=== PATIENT | female | born 1945 | race Caucasian/White ===

== ENCOUNTER 2022-02-18 10:44 | Outpatient (CLI) | payer MEDICARE, BC, SELFPAY ==
--- OUTSIDE RECORDS SUMMARY | 2022-02-18 10:49 | XMS_ITS | Clinical Summary ---
:1945 Author Organization [facility] Address [address] [place] [address] Care Team Providers Name Role Phone Elsewhere, Pcp Primary Care Provider Unavailable Source Comments Patient records contain information from all sites at [facility]. For routine questions regarding patient records, call [phone] during business hours, M-F 8:00 AM - 5:00 PM Central Time. Record requests for emergency care only can be directed to [phone] at any time.[facility] Allergies No known active allergies Medications Medication Sig Dispensed Refills Start Date End Date Status aspirin [address] every 0 02/16/2008 Ac tive tablet morning. cholecalciferol One time per 0 05/13/2014 Active (VITAMIN D3) 25 mcg week (1,000 Unit) capsule diazePAM (DIASTAT) Insert 5 mg 0 12/05/2020 Active 2.5 mg rectal kit into the rectum as needed. folic acid 1 mg Take 1 tablet 0 03/13/2018 Active tablet by mouth daily. levETIRAcetam 500 mg in the 0 06/16/2016 A ctive (KEPPRA) 250 mg morning, 250 tablet mg with lunch, 500 mg in evening carBAMazepine Take 400 mg 0 Acti ve (CARBATROL) 200 mg by mouth 2 12 hr capsule (two) times a day. carBAMazepine 1 capsule 0 08/20/2021 Activ e (CARBATROL) 100 mg (100 mg 12 hr capsule total) 2 (two) times a day. atorvastatin every other 0 08/20/2021 Acti ve (LIPITOR) 10 mg day. tablet multivitamin/iron/fo Take by 0 Active lic acid (CENTRUM mouth. ORAL) melatonin 3 mg Take 1 tablet 0 09/04/2021 Active tablet (3 mg total) by mouth at bedtime as needed for sleep. acetaminophen Take 2 0 09/25/2021 Activ e (TYLENOL) 500 mg tablets tablet (1,000 mg total) by mouth every 6 (six) hours as needed for mild pain or score 1-3 of 10, moderate pain or score 4-6 of 10 or headaches. psyllium, with Take 1 packet 0 09/26/2021 Active aspartame, by mouth (METAMUCIL) 3.4 gram daily. packet methocarbamoL Take 1 tablet 0 09/04/2021 09/26/19 D iscontinued (ROBAXIN) 750 mg (750 mg 22 (St op Taking at tablet total) by Discharge) mouth every 6 (six) hours as needed for muscle spasms. 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 Secondary to CHI Immunizations Name Administration Dates Next Due influenza high dose (65 years or older) (PF) 06/02/2016 Social History Tobacco Use Types Packs/Day Years Used Date Smoking Tobacco: Never Smokeless Tobacco: Never Alcohol Use Standard Drinks/Week Comments Never 0 (1 standard drink = 0.6 oz pure alcoho l) Alcohol Habits Answer Date Recorded How often do you have a drink containing alcohol? Never 08/26/2021 How many drinks containing alcohol do you have on a typical Not asked day when you are drinking? How often do you have six or more drinks on one occasion? No t asked Comment: Not asked Social Isolation Answer Date Recorded In a typical week, how many times do you More than three jeri es a week 08/26/2021 talk on the phone with family, friends, or neighbors? How often do you get together with friends Twice a week 08/26/2021 or relatives? How often do you attend christian or Never 2021 anabaptism services? Do you belong to any clubs or No 08/26/2021 organizations such as christian groups, unions, fraternal or athletic groups, or school groups? How often do you attend meetings of the Never 08/26/2021 clubs or organizations you belong to? Are you now , , , 08/26/2021 , never or living with a partner? Physical Activity Answer Date Recorded On average, how many days per week do you engage in moderate to 0 days 08/26/2021 strenuous exercise (like walking fast, running, jogging, dancing, swimming, biking, or other activities that cause a light or heavy sweat)? On average, how many minutes do you engage in exercise at th is 10 min 08/26/2021 level? Stress Answer Date Recorded Do you feel stress - tense, restless, nervous, or anxious, N ot at all 08/26/2021 or unable to sleep at night because your mind is troubled all the time - these days? Financial Resource Strain Answer Date Recorded How hard is it for you to pay for the very basics like Not h rozina at all 08/26/2021 food, housing, medical care, and heating? Intimate Partner Violence Answer Date Recorded Within the last year, have you been afraid of your partner o r No 08/26/2021 ex-partner? Within the last year, have you been humiliated or emotionall y No 08/26/2021 abused in other ways by your partner or ex-partner? Within the last year, have you been kicked, hit, slapped, or No 08/26/2021 otherwise physically hurt by your partner or ex-partner? Within the last year, have you been raped or forced to have any No 08/26/2021 kind of sexual activity by your partner or ex-partner? Food Insecurity Answer Date Recorded Within the past 12 months, you worried that your food would Never true 08/26/2021 run out before you got money to buy more. Within the past 12 months, the food you bought just didn't N ever true 08/26/2021 last and you didn't have money to get more. Transportation Needs Answer Date Recorded In the past 12 months, has lack of transportation kept you f rom No 08/26/2021 medical appointments or from getting medications? In the past 12 months, has lack of transportation kept you f rom No 08/26/2021 meetings, work, or getting things needed for daily living? Housing Stability Answer Date Recorded In the last 12 months, was there a time when you were not ab le No 08/26/2021 to pay the mortgage or rent on time? In the last 12 months, how many places have you lived? 1 08/26/2021 In the last 12 months, was there a time when you did not hav e a No 08/26/[address] to sleep or slept in a fci (including now)? Education Answer Date Recorded What is the highest level of Professional school degree (e.g ., , 08/25/2021 school you have completed or the DDS, DVM, ROSALVA) highest degree you have received? Sex Assigned at Date Recorded Female 08/25/2021 9:30 PM CDT Last Filed Vital Signs Vital Sign Reading Time Taken Comments Blood Pressure 135/86 09/25/2021 11:30 AM CDT Pulse 80 09/25/2021 11:30 AM CDT Temperature 36.7 ??C (98.1 ??F) 09/25/2021 11:30 AM CDT Respiratory Rate 16 09/25/2021 11:30 AM CDT Oxygen Saturation 95% 09/25/2021 11:30 AM CDT Inhaled Oxygen Concentration - - Weight 66.7 kg (147 lb 0.8 oz) 09/24/2021 12:00 PM CDT Height 172.2 cm (5' 7.8) 09/04/2021 7:02 PM CDT Body Mass Index 22.49 09/04/2021 7:02 PM CDT Plan of Treatment Health Maintenance Due Date Last Done Comments Bone Density Scan (Osteoporosis 1945 Screen) CT Colonography 1945 Cologuard 1945 Colonoscopy 1945 Colorectal Cancer Screening 1945 FIT 1945 Hepatitis C Screening 1945 Mammogram 1945 Pneumococcal vaccine (65+ years) 07/04/2016 07/04/2015 (2 - PPSV23 or PCV20) Depression Screening (Annual 06/13/2021 PHQ-2) Influenza Vaccine (#1) 2022 03/14/2021, 03/13/2020, 03/30/2019, Additional history exists Fasting Glucose for Diabetes 09/05/2024 09/05/2021, 022, Screening 03/13/2018, Additional history exists DTaP,Tdap,and Td Vaccines (2 - Td 11/30/2027 11/29/2017 or Tdap) Zoster Vaccines Completed 04/19/2018, 01/16/2018 Fall Risk Screen (Annual) Completed 09/02/2021 COVID-19 Vaccine Completed 10/06/2021, 03/14/2021, 09/05/2020, Additional history exists Medical Devices Implanted Type Area Hunting Sales Associate Device Shelf Model / Identifier Expiration Serial / Date Lot Kls-Plate 2.0 Mini Str 8ho Reg ; - Munoz [id number] Hardware Other /Legacy - Implanted: Qty: 1 on 04/10/1996 e.g. See Implant pins/screws/ Description rods Description: Device Hunting Sales Associate - KLS M andree';. Device Status Text - [id number]-[id number]. 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 See document viewer. Advance Directives 01/26/2016 12:00 AM Legacy doc ument. See document viewer. Latest Code Status on File Code Status Date Activated Date Inactivated Comments Full Code 09/04/2021 3:15 PM 09/25/2021 7:30 PM Full Code: Discussed Full Code 09/02/2021 12:11 PM 09/04/2021 3:09 PM Full Code: Not Discussed Due to: Not medically appropriate Full Code 09/02/2021 7:24 AM 09/02/2021 12:11 PM Full Code: Not Discussed Due to: Patient not available Care Teams Executive Personal Assistant Relationship Specialty Start Date End Date Elsewhere, Pcp PCP - General Internal Medicine 09/02/21
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
--- OUTSIDE RECORDS SUMMARY | 2022-02-18 10:49 | XMS_ITS | Clinical Summary ---
:1945 Author Organization [email or web address] [place] [address] Care Team Providers Name Role Phone Abdiel Llanos MD Primary Care Provider Allergies No known active allergies Medications Medication Sig Dispensed Refills Start Date End Date Status ASPIRIN 81 MG TAB, take 1 tablet (81 0 02/16/2008 Active DELAYED RELEASE mg) by oral route once daily VALERIAN 400 MG CAP 0 02/16/2008 Active medication order Bunnyuhiko Watelena 15 Each 0 07/04/2013 Active composer DOM- Acupuncture for contractures, s/pCHI. Q 3-4 weeks as needed. Arin Sotomayor RN, SR COMMUNITY MANAGER AE-C cholecalciferol One time per week 0 05/13/2014 Active (VITAMIN D) 1,000 unit capsuleIndications: Screening for osteoporosis diazepam CONCENTRATE Take 1 mL by 0 06/29/2016 Active (DIAZEPAM INTENSOL) 5 mouth each time mg/mL if needed for solutionIndications: Seizures (for Seizure disorder (HC) more than 3 seizures in 1 hour; for seizures lasting more than 5 min). LORazepam (ATIVAN) 1 Take 1 tablet by 0 07/06/2016 Active mg tablet mouth every 6 hours if needed. carBAMazepine Take with 200 mg 180 capsule 4 11/01/2017 Active (CARBATROL) 100 mg by mouth capsule Extended-Release for a total dose capsuleIndications: of 300 mg in the Seizure disorder (HC) morning and 500 mg in the evening levETIRAcetam Take 2 tablets by 0 03/13/2018 Active (KEPPRA) 250 mg mouth 2 times tabletIndications: daily. Seizure disorder (HC) folic acid 1 mg Take 1 tablet by 90 tablet 4 03/13/2018 Active tabletIndications: mouth once daily. Seizure disorder (HC) carBAMazepine TAKE ONE TABLET 270 tablet 4 04/20/2018 Active (TEGRETOL XR) 200 mg BY MOUTH EVERY Extended-Release MORNING AND TAKE tabletIndications: TWO TABLETS BY Seizure disorder (HC) MOUTH EVERY EVENING atorvastatin TAKE ONE TABLET 90 tablet 0 10/16/2018 Active (LIPITOR) 10 mg BY MOUTH EVERY tabletIndications: OTHER DAY. Hyperlipidemia, unspecified Active Problems Problem Noted Date Mixed hyperlipidemia 03/13/2018 Right leg weakness 11/02/2017 Macrocytosis without anemia 11/02/2017 Closed head injury 03/22/2011 Overview: Aphasia, expressive and receptive. R. Hemiparesis and weakness S/P hysterectomy 03/22/2011 Contracture of joint of right hand 03/22/2011 Overview: Secondary to CHI Altered gait 03/22/2011 Seizure disorder 03/22/2011 Immunizations Name Administration Dates Next Due AMB Influenza, IIV3 (Age >=3 years)(Flu Clinic Only) 008 Influenza, IIV3 (Age >=3 years) 07/03/2007 Influenza, Inactivated IIV3 (Age 65+ Years) Preserv 03/30/20 18, 03/02/2017 Free Pneumococcal conj 13-Valent (Prevnar 13) 07/04/2015 Family History Medical History Relation Name Comments Cancer-colon Father Diabetes Father Relation Name Status Comments Father Social History Tobacco Use Types Packs/Day Years Used Date Never Smoker Smokeless Tobacco: Never Used Tobacco Cessation: Counseling Given: Yes Alcohol Use Standard Drinks/Week Comments Yes 0 (1 standard drink = 0.6 oz pure alcoho l) occasional Alcohol Habits Answer Date Recorded How often do you have a drink containing alcohol? Not asked How many drinks containing alcohol do you have on a typical Not asked day when you are drinking? How often do you have six or more drinks on one occasion? No t asked Comment: occasional 03/22/2011 Sex Assigned at Date Recorded Not on file Obstetrics History Para Term AB IAB SAB Ectopic Multiple Living Live Births 3 2 2 1 1 2 Date Outcome GA Total Labor/2nd/3rd Weight Sex Delivery Anes PTL Chante A 1 A5 Name Clin Labor Term Term SAB Last Filed Vital Signs Vital Sign Reading Time Taken Comments Blood Pressure 146/78 08/06/2021 11:32 AM STUDENT COUNSELOR Pulse 72 08/06/2021 11:32 AM STUDENT COUNSELOR Temperature 36.5 ??C (97.7 ??F) 08/06/2021 11:32 AM STUDENT COUNSELOR Respiratory Rate 14 07/04/2013 7:52 PM STUDENT COUNSELOR Oxygen Saturation 98% 08/06/2021 11:32 AM STUDENT COUNSELOR Inhaled Oxygen Concentration - - Weight 66.9 kg (147 lb 6.4 oz) 03/02/2017 11:27 AM CDT Height 170.2 cm (5' 7) 03/02/2017 11:27 AM CDT Body Mass Index 23.09 03/02/2017 11:27 AM CDT Plan of Treatment Health Maintenance Due Date Last Done Comments Tdap 1957 Hepatitis C screening for age 0903/06/1963 18-79 Tetanus booster 1966 Colonoscopy through age 75 1991 Zoster (shingles) series for age 0903/06/1996 50+ (1 of 2) DEXA/DXA scan for age 65+ 2011 Medicare Wellness for age 65+ 2011 Mammogram for age 45-75 08/20/2014 08/20/2013, 08/18/2012, 07/28/2011, Additional history exists Pneumococcal series for age 65+ (2 07/04/2016 07/04/2015 - PPSV23 or PCV20) BMI (ht and wt on same day) for 03/02/2018 03/02/2017, 12/2016, age 18+ 07/06/2016, Additional history exists Depression screening for age 12+ 11/01/2018 11/01/2017, , 08/18/2015 COVID-19 vaccine series (4 - 07/15/2021 03/14/2021, 021, Booster for Pfizer series) 08/15/2020 Influenza for age 65+ 02/11/2022 03/30/2018, 03/02/2017, 04/19/2008, Additional history exists Lipids for age 45-75 03/13/2023 03/13/2018, 01/26/2016 Results Not on filefrom Last 3 Months Insurance Payer Benefit Plan / Subscriber ID Effective Dates Phone Addre ss Type Group BLUE CROSS MR MARGIE RIVERA [id number] 2021-Present [address] [address] [place] MARGIE LEE [place] [phone] Care Teams Intel Analyst Relationship Specialty Start Date End Date Abdiel Llanos MD PCP - General Internal Medicine 07/22/211999 [place], [place] [id number]
--- OUTSIDE RECORDS SUMMARY | 2022-02-18 10:50 | XMS_ITS | Encounter Summary ---
:1945 Author Organization [facility] Address [address] [place] [address] Care Team Providers Name Role Phone Elsewhere, Pcp Primary Care Provider Unavailable Encounter Details Date Type Department Care Team Description 09/22/2021 Clinical Communication Department of Physical [facility] and Maame Doyle, Ph.D. Rehabilitation in [address] [place] [address] [place] [phone] [place], [place] [phone] (Work) [phone] Social History Tobacco Use Types Packs/Day Years [...] or relatives? How often do you attend taoism or Never 2021 nondenominational services? Do you belong to any clubs or No 08/26/2021 organizations such as taoism groups, unions, fraternal or athletic groups, or [...] minutes do you engage in exercise at is 10 min 08/26/2021 level? Stress Answer [...] to sleep or slept in a senior living (including now)? Education Answer Date Recorded What is the highest level of Professional school degree (e.g ., , 08/25/2021 school you have completed or the DDS, DVM, ROSALVA) highest degree you have received? Sex Assigned at Date Recorded Female 08/25/2021 9:30 PM CDT documented as of this encounter Plan of Treatment Not on filedocumented as of this encounter Visit Diagnoses Not on filedocumented in this encounter Care Teams Reimbursement Analyst Relationship Specialty Start Date End Date Elsewhere, Pcp PCP - General Internal Medicine 09/02/21 documented as of this encounter
--- OUTSIDE RECORDS SUMMARY | 2022-02-18 10:50 | XMS_ITS | Encounter Summary ---
:1945 Author Organization [facility] Address [address] [place] [id number] Care Team Providers Name Role Phone Elsewhere, Pcp Primary Care Provider Unavailable Encounter Details Date Type Department Care Team Description 09/11/2021 Ancillary Procedure Department of Nursing Social History Tobacco Use Types Packs/Day Years [...] or relatives? How often do you attend druze or Never 2021 christianity services? Do you belong to any clubs or No 08/26/2021 organizations such as druze groups, unions, fraternal or athletic groups, or [...] place to sleep or slept in a longterm (including now)? Education Answer Date Recorded What is the highest level of Professional school degree (e.g ., , 08/25/2021 school you have completed or the DDS, DVM, ROSALVA) highest degree you have received? Sex Assigned at Date Recorded Female 08/25/2021 9:30 PM CDT documented as of this encounter Plan of Treatment Not on filedocumented as of this encounter Procedures Procedure Name Priority Date/Time Associated Diagnosis Comme nts NURSING IMAGE EXAM Routine 09/11/2021 10:35 AM Re sults for this CDT procedure are i n the results section. documented in this encounter Results Back-Nursing Image Exam (09/11/2021 10:35 AM CDT) Specimen (Source) Anatomical Collection Method Collection Time Re ceived Time Location / / Volume Laterality 09/11/2021 10:35 AM CDT Narrative [facility] - 09/11/2021 10:38 AM CDT This order has been created and auto-finalized to support the import of images acquired without order. The clini lori documentation to support these images can be found on the encounter nuris t produced images. Provider Not In System IMG NON RAD IMAGING PROCEDUR ES Performing Organization Address City/State/ZIP Code Phon e Number [facility] NA documented in this encounter Visit Diagnoses Not on filedocumented in this encounter Care Teams Food Writer Relationship Specialty Start Date End Date Elsewhere, Pcp PCP - General Internal Medicine 09/02/21 documented as of this encounter
--- OUTSIDE RECORDS SUMMARY | 2022-02-18 10:50 | XMS_ITS | Encounter Summary ---
:1945 Author Organization [facility] Address [address] [place] [id number] Care Team Providers Name Role Phone Elsewhere, Pcp Primary Care Provider Unavailable Reason for Referral Outpatient (Routine) - Authorized Specialty Diagnoses / Procedures Referred By Contact Refer red To Contact Diagnoses Lack Of Coordination Decline Functional Status Imbalance Non Orthopedic Weakness General Unsteadiness Gait Disorder Non Orthopedic Niyah Early M.D. [address] [place] [phone] Referral ID Status Reason Start Expiration Visits Visits Date Date Requested Authorized [id number] Authorized Patient 09/21/2021 09/21/2022 1 1 Preference hysical Therapy (Routine) - Authorized Specialty Diagnoses / Procedures Referred By Contact Refer red To Contact Diagnoses Lack Of Coordination Decline Functional Status Imbalance Non Orthopedic Weakness General Unsteadiness Gait Disorder Non Orthopedic Stenosis Spinal Lumbar With Neurogenic Claudication Stenosis Spinal Niyah Early M.D. 200 [place], [place] [phone] Referral ID Status Reason Start Expiration Visits Visits Date Date Requested Authorized [id number] Authorized Patient 09/21/2021 09/21/2022 99 99 Preference Outpatient (Routine) - Closed Specialty Diagnoses / Referred By Contact Referred To Contact Procedures [facility] [address] [place] [phone] Referral ID Status Reason Start Date Expiration Date Visits Requ ested Visits Authorized [id number] Closed 09/15/2021 09/15/2022 1 1 Reason for Visit Auth/Cert Specialty Diagnoses / Procedures Referred By Contact Refer red To Contact Diagnoses Procedures ADMIT TO INPATIENT REHAB Referral ID Status Reason Start Date Expiration Date Visits Requ ested Visits Authorized [id number] 1 1 Encounter Details Date Type Department Care Team Description 09/04/2021 - Hospital Encounter [facility] Javan Cardenas M.D. [address] [place] [phone] Laminectomy Lumbar Status Post (Primary Dx); 09/[facility] [address] [place] [phone] Lack Of Coordination; [facility] [address] [place] [phone] Decline Functional Status; [facility] Twila Davis Kenley D, M.D. [address] [place] [phone] Imbalance Non Orthopedic; Fourth Floor Calderon Schultz M.D. [address] [place] [phone] Weakness General; [address] [place] [address] Unsteadiness Gait Disorder N on Orthopedic; [place], [place] Stenosis Spina l Lumbar With Neurogenic Claudication; [phone] Stenosis Spinal [phone] Social History Tobacco Use Types Packs/Day Years [...] or relatives? How often do you attend catholic or Never 2021 scientology services? Do you belong to any clubs or No 08/26/2021 organizations such as catholic groups, unions, [employer] or athletic groups, or school groups? How [...] place to sleep or slept in a mcc (including now)? Education Answer Date Recorded What is the highest level of Professional school degree (e.g ., , 08/25/2021 school you have completed or the DDS, DVM, ROSALVA) highest degree you have received? Sex Assigned at Date Recorded Female 08/25/2021 9:30 PM CDT documented as of this encounter Last Filed Vital Signs Vital Sign Reading [...] Mass Index 22.49 09/04/2021 7:02 PM CDT documented in this encounter Discharge Summaries Niyah Early M.D. - 09/25/2021 12:37 PM CDT DISCHARGE SUMMARY BRIEF OVERVIEW Hospital: [facility] Discharge Provider: Teddy Avendano M.D. 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 * DISCHARGE DISPOSITION Home or Self Care [1] ACTIVE ISSUES REQUIRING FOLLOW UP PATIENT RECOMMENDATIONS: ??? You should follow-up with your primary care provider within one to two weeks of dismissal to discuss the events of this hospitalization and to establish a longterm management plan. All medication changes should be reviewed. You and your primary care provider should determine ongoing treatment as medication refills and additional therapy prescriptions will be at the discretion of your primary care provider (we will not provide medication refills or therapy renewals). Please take a copy of this dismissal summary with you to your primary care physician follow up appointment. ??? Please see After Visit Summary for a list of scheduled follow-up appointments and medication instructions. ??? It is unsafe for you to drive. ??? Bowel and bladder management: You may take over the counter bowel medications such as MiraLAX, Metamucil and/or Senna as needed for constipation. Continue to maintain adequate fluid intake with a goal of 1,800mL/day ??? Pain: you may take Tylenol 1,000 mg every 6 hours as needed for pain. Max daily dose of Tylenol is 4,000 mg (4 gms). PROVIDER RECOMMENDATIONS: ??? Ensure outpatient physical and occupational therapy has been arranged. OUTPATIENT FOLLOW UP Scheduled Appointments 10/21/2021 9:00 AM Jose Ross M.D. Physical Medicine and Rehabilitation For appointment details refer to your Patient Appointment Guide. TEST RESULTS PENDING AT DISCHARGE Pending Labs None DETAILS OF HOSPITAL STAY REASON FOR ADMISSION HOSPITAL COURSE PRE-REHABILITATION COURSE: Mrs. Aurora Langley is a 76-year-old right-handed, Barbadian-speaking woman with past medical history of TBI with residual posttraumatic epilepsy, right spastic hemiparesis and expressive aphasia status post [employer]ER shunt placement in 1995 and lumbar spinal stenosis s/p L2-L5 lumbar laminectomy on August. Since her TBI in 1995, she has been ambulatory with use of a right AFO and assistance from her . Over the last 5-8 years, she has experienced slow decline in ambulation. She had not regained meaningful function in her right upper extremity after her TBI. Over the past several years, she also developed worsening symptoms suggestive of lumbar pseudoclaudication. MRI lumbar spine (07/22/21) revealed lumbar spondylosis resulting in severe central canal stenosis from L2-L5. She was evaluated in the outpatient neurosurgery clinic by Dr. Castellon who recommended lumbar decompression laminectomy. She was admitted to [facility] on September 02 for planned lumbar decompression laminectomy. She had indwelling urinary catheter and lumbar drain removed on 09/03. On 09/04, her expressed concern that she is demonstrating worsening aphasia and cognition as well as not attending to things on her right side. Head CT was obtained and was negative for any acute processes. At baseline, she was requiring minimal assistance with transfers, stairs and ADLs from her . Patient's goal is to dismiss home with . They live in [place], [place] in a handicap-accessible home. She has bathroom equipment and uses a wheelchair within her home for mobility. Her works as a professor. Her will be available to provide assistance as needed following dismissal. PMR was consulted and evaluated the patient while on the acute hospital floor. Patient was requiring max assistance with transfers, ambulation of 1 meter with a two-wheel walker and max assistance, max assistance with lower body dressing and supervision assistance with grooming. She was determined to be an appropriate candidate for acute inpatient rehabilitation for lower extremity weakness and impairments in gait and ADLs. REHABILITATION COURSE: Mrs. Langley was admitted to the inpatient brain rehabilitation service on September 04, 2021. The following items were addressed during her stay: # Lumbar spinal stenosis with neurogenic claudication status post L2-L5 laminectomy on September 02, 2021 # Progressive lower limb weakness # Gait unsteadiness # History of TBI resulting in spastic right hemiparesis, posttraumatic epilepsy and expressive aphasia Mrs. Langley was an active participant with her rehabilitation team, including physical and occupational therapy. Both disciplines were recommended to continue in the outpatient setting and prescriptions were provided and faxed for this. Family elected to schedule at their convenience. Activity restrictions including a 15-20 pound lifting restriction and no heavy lifting, twisting or bending for 6 weeks post operatively which will be October 14. Her pain was well controlled with 1000 mg of Tylenol, every 6 hours as needed. No neurosurgery follow up is indicated per discussion with Dr. Castellon's service. She has outpatient physiatry follow up scheduled with Dr. Ross on October 21. She was continued on her home anti-epileptic regimen including carbamazepine 500 mg twice daily, levetiracetam 500 mg every morning, 250 mg with lunch, 500 mg every evening, and folic acid 1,000 mcg daily. There was some concern on day of admission as to whether or not she was have a seizure, for which the neurology consult service was contacted. Fortunately, her opioid pain medications and muscle relaxants were discontinued and her mental status improved significantly. # Hyperlipidemia Mrs. Langley was continued on her home atorvastatin 10 mg every other day and aspirin 81 mg daily. DISCHARGE PHYSICAL EXAM: Temperature: [36.5 ??C-36.8 ??C] 36.5 ??C Resp Rate: [15-16] 16 Blood Pressure: (121-139)/(64-93) 121/64 SpO2: [95 %-98 %] 98 % Pulse Rate: [67-87] 67 General: alert and oriented to self, place, spouse and situation; in no acute distress; arranging herself to get comfortable in bed for afternoon rest. HEENT: Normocephalic, atraumatic. Oral cavity and tongue are unremarkable. Sclera anicteric, conjunctiva clear. Mucus membranes moist. Trachea midline. Heart: Extremities warm and well perfused. Radial pulses strong bilaterally. No lower extremity edema. Lungs: Clear to auscultation bilaterally. No dyspnea. Breathing comfortably on room air. Symmetric chest rise. Abdomen: Soft, non-tender, nondistended. Bowel sounds present. Extremities: No swelling or erythema. No calf tenderness. Right knee brace and right AFO. Skin: Exposed areas of skin are clean, dry and intact with no evidence of cellulitis, pressure ulcers, or necrosis. Neurologic Exam: MENTAL STATUS: Fully oriented with appropriate mood and affect. CRANIAL NERVES: No acute focal cranial nerve deficits. LANGUAGE/SPEECH: Limited verbal responses in [place], uses assistance for translation. Responds appropriately to yes/no questions. Comprehends spoken commands to participate in exam. MUSCLE STRENGTH: Right upper extremity plegia secondary to traumatic brain injury in 1995 with residual weakness of the right lower extremity, however antigravity strength here is preserved. Full strength in left upper and lower extremities. Maintains right upper extremity in a flexed posture at her side. MUSCLE REFLEXES (scale: -4=absent, 0=normal, +4=sustained clonus; right/left): Biceps 0/0, Brachioradialis 0/0, Triceps 0/0, Patellar tendon 0/0 GAIT: Normal sitting balance. Transfers with assist of one and use of Shannan Steady safely. Requires minimal assistance for bed mobility. COORDINATION: Normal coordination with left upper extremity. SENSATION: Normal light touch sensation throughout upper and lower limbs. CONSULTS ORDERED DURING THIS ADMISSION IP CONSULT TO CARE MANAGEMENT IP CONSULT TO RECREATIONAL THERAPY IP CONSULT TO CARE MANAGEMENT IP CONSULT TO NEUROLOGY IP CONSULT TO [place] MACHINE OPERATOR WOUND CARE CONDITION AT DISCHARGE Improved, medically ready for dismissal home with family support Discharge instructions were provided to the patient and caregiver(s). documented in this encounter Discharge Instructions Discharge Instr - Fanny Enrique M.S., O.T. - 09/23/2021 9:00 AM CDT Occupational Therapy Discharge Summary MOBILITY RESTRICTIONS/PRECAUTIONS: Other Precautions: fall, history of TBI, expressive aphasia, no functional use of RUE, R inattention, uses R AFO and knee brace for ambulation CURRENT FUNCTIONAL STATUS: Patient's first language is Barb[place], but she does understand [place]. is available for interpretation as needed. provides assistance for all-self cares at varying levels of assist. Patient requires moderate-maximum assistance during low- and stand-pivot transfers to bed and commode. Patient benefits from use of a SaraStedy, vertical and horizontal grab bars, and R knee blocking, and minimum assistance to perform sit<>stands while assists with clothing management during toileting and dressing. Patient responds best to tactile cues, gestures, and demonstration due to baseline aphasia. Levels of assist may increase when patient fatigued or mildly impulsive; however, patient responds well to redirection and cues for pacing. Patient has a new customized resting wrist orthosis for R wrist extension but prefers not to use it. and patient educated on use of orthosis for joint protection and pain management. Patient responds well to passive scapular mobilizations. Patient performs self-range of motion for R hand and Rfingers. Please continue resistance band exercises to strengthen left arm for functional transfers. Issued orange (low resistance), pink (medium resistance), and green (high resistance) TheraBands for graded resistance. Patient benefits from color making supervisor resistance for lifting actions and greater resistance for pulling actions. Recommend anchoring Therabands on a chair, closed door, or with assistance from caregiver to create resistance. Complete 3 sets of 10 reps, 3x/week: Shoulder flexion and extension Shoulder abduction Elbow flexion and extension RECOMMENDATIONS: Recommend further occupational therapy evaluate and treat in home setting. Frequency and duration horacio determined by the evaluating therapist RHB RST FOLLOW UP LOCATIONS: Home health occupational therapy. Discharge information provided on 09/23/2021 by Fanny Deal M.S., O.T. Contact information: [facility], [address], documented in this encounter Medications at Time of Discharge Medication Sig Dispensed Refills Start Date End Date acetaminophen (TYLENOL) 500 Take 2 tablets 0 09/11 mg tablet (1,000 mg total) by mouth every 6 (six) hours as needed for mild pain or score 1-3 of 10, moderate pain or score 4-6 of 10 or headaches. psyllium, with aspartame, Take 1 packet by 0 09/11 (METAMUCIL) 3.4 gram packet mouth daily. aspirin [address] tablet every morning. 0 02/16/20 08 atorvastatin (LIPITOR) 10 every other day. 0 08/11 mg tablet carBAMazepine (CARBATROL) 1 capsule (100 mg 0 03/2022 100 mg 12 hr capsule total) 2 (two) times a day. carBAMazepine (CARBATROL) Take 400 mg by mouth 0 200 mg 12 hr capsule 2 (two) times a day. cholecalciferol (VITAMIN One time per week 0 06/2013 D3) 25 mcg (1,000 Unit) capsule diazePAM (DIASTAT) 2.5 mg Insert 5 mg into the 0 12/05/2020 rectal kit rectum as needed. folic acid 1 mg tablet Take 1 tablet by 0 018 mouth daily. levETIRAcetam (KEPPRA) 250 500 mg in the 0 2016 mg tablet morning, 250 mg with lunch, 500 mg in evening melatonin 3 mg tablet Take 1 tablet (3 mg 0 09/04 total) by mouth at bedtime as needed for sleep. multivitamin/iron/folic Take by mouth. 0 acid (CENTRUM ORAL) documented as of this encounter Progress Notes Denise Macedo, P.T.A. - 09/25/2021 3:57 PM CDT [facility] SUBJECTIVE Patient's Name: Aurora Langley Reason for Referral: PT Evaluate and Treat: Inpatient rehabilitation Medical Diagnosis: 1. Laminectomy Lumbar Status Post 2. Lack Of Coordination 3. Decline Functional Status 4. Imbalance Non Orthopedic 5. Weakness General 6. Unsteadiness Gait Disorder Non Orthopedic 7. Stenosis Spinal Lumbar With Neurogenic Claudication 8. Stenosis Spinal History of Present Illness: Patient is s/p L2-L5 laminectomies for lumbar stenosis with gait instability by Dr. 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 Onset Date: 09/02/21 Patient/Caregiver Goals: Be able to complete cares with support of spouse to return home Precautions Other Precautions: fall, history of TBI, expressive aphasia, no functional use of RUE, R inattention, uses R AFO and knee brace for ambulation Fall Risk (65 and older) Fall in the last 12 months: Yes Did you have an injury with the fall?: No Are you fearful of falling?: Yes Fall Risk Comments: patient slipped out of the bed OBJECTIVE ankle foot orthosis and knee brace R leg donned prior to mobility and throughout all functional mobility Pain: No pain reported Vitals: Not indicated at this time Sit to Stand Transfers # of Assistants: 1 Transfer Surface: Wheelchair Transfer Equipment: Gait belt, Single rail Level of Assistance: Minimal assistance, Moderate assistance Assessment/Delivery: Assessed, Instructed, Therapist assisted, Facilitated Comments: varies between minimal assistance to moderate assistance depending on fatigue Stand to Sit Transfers # of Assistants: 1 Transfer Surface: Wheelchair Transfer Equipment: Gait belt, Single rail Level of Assistance: Moderate assistance Assessment/Delivery: Assessed, Instructed, Therapist assisted, Facilitated Comments: Facilitation for slow controlled eccentric descent. facilitation for midline and stabilitythroughout Bed, Chair, Wheelchair Transfers # of Assistants: 1 Transfer Surface: Wheelchair, Chair (Therapy mat) Transfer Approach: To and from, Stand pivot, To the left, To the right Level of Assistance: Maximal assistance Assessment/Delivery: Assessed, Instructed, Educated, Therapist assisted, Facilitated Comments: Patient did very well with stand and stepping with L foot, maximal assistance and max cuesfor sequencing, turning, hip placement, and controlled decent. Gait Assessment/Training Distance (m): 5 m Surface: Even, Smooth/hard Device: No device, Gait belt, Single rail # of Assistants: 1 (2nd for wheelchair follow) Level of Assistance: Moderate assistance Quality/Pattern: Decreased heel strike, Decreased stance time R, Decreased base of support Assessment of Gait: Demonstrates flexed knee posture R>L. Forward flexed posture with downward gaze. Relying heavily on the L UE on the rail Cueing Provided: Verbal, Tactile Training/Intervention: Therapist faciltiating weight shifts and stability. One instance of knees buckling Balance Retraining Static Standing Balance: Static standing, Midline orientation, Lateral weight shifts Seated Exercise - Side Addressed: Bilateral Sitting Surface: Wheelchair Seated Exercise: Ankle pumps, Hip abduction/adduction, Marching, Long arc quads, Knee flexion Exercise Mode: Active motion against gravity, Elastic band (comment) Sets/Repetitions: 10x Seated Exercise Comments: green theraband for knee flexion. Requires tactile and verbal cues for understanding of activity Car Transfers # of Assistants: 2 Numeric Value with Comments Transfer Approach: Stand pivot Transfer Equipment: No device Level of Assistance: Moderate assistance Assessment/Delivery: Assessed, Instructed, Educated, Therapist assisted, Facilitated Comments: Stand pivot transfer with into personal vehicle Toilet Transfers # of Assistants: 1 Transfer Surface: Toilet Transfer Approach: To and from, Stand pivot Transfer Equipment: Grab bars Level of Assistance: Maximal assistance Toilet Transfers Comments: Maximal assistance by to transfer on and off toilet. Spouse was able to complete independently, however this was fatiguing for him. Patient/Family Education: Education on dorsiflexion for ambulation and car transfers Education Provided to: Sal Learner's Response: Able to demonstrate At the end of today's therapy session patient was left seated in a wheelchair with an appropriate call light within reach. Patient's needs and questions addressed during today's session. Contact monitoring: PPE used during therapy: Therapist was wearing the following PPE throughout entire session: surgicalmask and eye protection Patient was wearing a mask during therapy session: yes Assessment Patient continues to demonstrate improvement in strength, coordination, and ambulation. She would benefit from continued skilled physical therapy in an outpatient setting to progress functional mobility, R LE coordination, and strength. Barriers to Discharge Home: Current functional status, Safety concerns, Fall risk Barriers to Discharge Comments: Requires assist of two for mobilizing Comorbid Conditions: Other (Comment), Cerebrovascular accident Personal Factors: Balance impairment, Communication deficit, Hand dominance, History of falls, Needsassistive device, Safety awareness Level of Care Needed - PT: Assistance with transfers (Comment), Assistance with walking and moving around the home, Assistance with bed mobility, Cognitive assistance needed Equipment Recommended - PT: Other (Comment), Wheelchair Equipment Vendor - PT: pending ongoing assessment, Shannan Stedy may be beneficial for transfers/etc. Functional Goals and Timeframes: PT Goal #1: Patient and spouse will be able to perform bed mobility using no hospital bed features with Min A x1 in order to increase independence in home. PT Goal #1 Status: Achieved PT Goal #2: Patient will be able to complete sit to/from stand transfer using Shannan Stedy or most appropriate gait device with Min A x1 in order to improve household mobility. PT Goal #2 Status: Progressing PT Goal #3: At discharge, patient will be able to perform stand pivot transfer using least restrictive device with Mod A x1 in order to improve household mobility. PT Goal #3 Status: Progressing PT Goal #4: Patient will demonstrate ability to maintain unsupported sitting at least 10 minutes to improve mobility and safety. PT Goal #4 Status: Progressing Progress: Progressing toward goals Plan Patient agrees with the plan of care and goals. Treatment Plan: PT Frequency: 6 times per week PT Amount: 2 visits per day PT Inpatient Duration : Until goals are met or hospital discharge Plan: Continue with current plan Treatment interventions may include: Treatment/Interventions: Therapeutic exercise, Therapeutic functional activity, Neuromuscular re-education, Gait training, Self-care/home management, Orthosis [id number] Other PT Interventions: Seating Clinic (on rehab unit) SUPERVISOR COATING Visit Trackin Time Spent with Patient Therapeutic Interventions Therapeutic Activity (min): 47 min Therapeutic Exercise (min): 15 min Time Tracking Total Timed Units (min): 62 min Total Treatment Time (min): 62 min PT Individual : 62 Minutes Femi FranzTRico Ankit Bermudez P.T., Cristian.P.T. - 09/25/2021 3:40 PM CDT 09/28/21 0853 Plan PT Plan Comments Patient discharged home. Patient has been given a written recommendation for continued therapy treatment. Goals set during this episode of care will continue to be addressed at next level of care. Adaptive equipment was issued to patient during this episode of care based on skilled need Fanny Deal M.S., O.T. - 09/25/2021 8:18 AM CDT Occupational Therapy Rehabilitation [facility] Inpatient Progress Note SUBJECTIVE Patient's Name: Aurora Langley Reason for Referral: OT Evaluate and Treat: Inpatient rehabilitation Medical Diagnosis: 1. Laminectomy Lumbar Status Post 2. Lack Of Coordination 3. Decline Functional Status 4. Imbalance Non Orthopedic 5. Weakness General 6. Unsteadiness Gait Disorder Non Orthopedic 7. Stenosis Spinal Lumbar With Neurogenic Claudication 8. Stenosis Spinal History of Present Illness: Patient is s/p L2-L5 laminectomies for lumbar stenosis with gait instability by Dr. 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 Onset Date: 09/02/21 Patient/Caregiver Goals: Be able to complete cares with support of spouse to return home Patient Comments: Patient and agreeable to occupational therapy. Precautions Other Precautions: fall, history of TBI, expressive aphasia, no functional use of RUE, R inattention, uses R AFO and knee brace for ambulation Fall Risk (65 and older) Fall in the last 12 months: Yes Did you have an injury with the fall?: No Are you fearful of falling?: Yes OBJECTIVE R knee brace donned prior to arrival and donned throughout session Pain: No pain reported today. Vitals: Not indicated at this time Home Management/Self-Cares: ?? Final session was focused on establishing final recommendations for safe pivot transfers from commode<>bed with 's assistance. Patient report and return-demonstrate that they are comfortable with the following setup: ?? (1) get into bed with low-pivot transfer towards the left with use of bed rail (2) get out of bed with low-pivot transfer towards the right with use of wall railing installed on bedroom wall Educated patient and that if this setup does not work, then patient should be transferred with SaraStedy to opposite side of bed for optimal safety and reduced risk of injury of both patient and . verbalized understanding. Pressure Relief Therapist collaborated with Jose Robertchair on rental wheelchair cushion for appropriate pressure relief. Facilitated sit<>stands with min-moderate assistance and SaraStedy to trial differentcushion sizes. Recommended larger surface area for appropriate pressure distribution along posteriorleg for optimal pressure relief and reduced risk of pressure injury. Patient/Family Education: Functional transfers, pressure relief, level of assist Education Provided to: Dafneta And Learner's Response: Able to teach back and Able to demonstrate At the end of today's therapy session patient was left seated in a wheelchair with a pressure relieving cushion with an appropriate call light within reach. Patient's needs and questions addressed during today's session. Contact monitoring: PPE used during therapy: Therapist was wearing the following PPE throughout entire session: surgicalmask and eye protection Patient was wearing a mask during therapy session: donned for therapy unit Family member/caregiver present was wearing a mask: donned for therapy unit Assessment Patient and have return-demonstrated good understanding of recommendations for functional transfers, toileting, bathing, and use of durable medical equipment to reduce risk of injury or falls.??Patient currently??requires varying levels of assist (from setup to total assistance) for self-caresdue to BLE weakness??(R>L), decreased activity tolerance, and impaired functional balance. Recommend ongoing skilled occupational therapy services at home or in outpatient clinic to progress functional performance??and participation in daily tasks while??optimizing safety for both patient and .?? Barriers to Discharge Home: Current functional status, Safety concerns, Fall risk Barriers to Discharge Comments: Requires assist of two for mobilizing Comorbid Conditions: Other (Comment), Cerebrovascular accident (see [facility] for full medical history) Personal Factors: Balance impairment, Communication deficit, Hand dominance, History of falls, Needsassistive device, Safety awareness Discharge Therapy Needs - OT: Ongoing skilled occupational therapy Level of Care Needed - OT: Assistance with toileting, Assistance with toilet/shower transfers, Assistance with medication set up/administration, Assistance with showering/bathing, Assistance with dressing, Physical assistance needed, Assistance with meal preparation, Assistance with student financial services counselor, Assistance with transportation, Assistance with housekeeping, Assistance with shopping, Cognitiveassistance needed, Assistance with eating/feeding Recommended Adaptive Equipment - OT: Shower chair with back, Grab bar(s) in shower, Hand held showerhead, Bed rail(s), Bedside commode (Patient's has significant equipment options at home and is open to any and all suggestions. Since admission, patient's has purchased bed rail, adaptive dishware, Dycem, and wet wipes for improved self-cares with caregiver assistance.) Functional Goals and Timeframes: OT Goal #1: STG: Pt will complete pivot commode transfer with minimal assistance x1 and use of adaptive equipment as needed. OT Goal #1 Status: Progressing OT Goal #2: STG: Patient will complete LB dressing with use of adaptive equipment with moderate assist of 1. (Patient will receive assistance from at home.) OT Goal #2 Status: Discontinued (comment) OT Goal #3: STG: Pt will be able to maintain standing with adaptive setup and moderate assistance toallow caregiver to safely assist with clothing management for self cares and to participate in grooming tasks. OT Goal #3 Status: Achieved OT Goal #4: LTG: Pt's spouse will verbalize understanding on safe mechanics and DME for patient to continue to participate with ADL cares. OT Goal #4 Status: Achieved Progress: Progressing toward goals Plan Patient agrees with the plan of care and goals. Treatment Plan: OT Frequency: 5 times per week OT Amount: 2 visits per day OT Inpatient Duration : Until goals are met or hospital discharge Plan: Continue with current plan Treatment interventions may include: Treatment Interventions: Therapeutic exercise, Therapeutic functional activity, Neuromuscular re-education, Self-care/home management, Manual therapy Therapeutic Interventions Home Management Training (min): 15 min Time Tracking Total Timed Units (min): 15 min Total Treatment Time (min): 15 min OT Individual: 15 Minutes Fanny Deal M.S., O.T. Niyah Early M.D. - 09/25/2021 7:27 AM CDT SUBJECTIVE Mrs. Aurora Langley is a 76-year-old, right-handed, [place]-speaking woman with past medical history of TBI with residual posttraumatic epilepsy, right spastic hemiparesis and expressive aphasia s/p SKY LINE YARDER shunt (1995) and lumbar spinal stenosis now status post L2-L5 lumbar laminectomy on 09/02/[address] Castellon. She is admitted to acute inpatient rehabilitation for lower extremity weakness and impairments in gait and ADL performance. Aurora is feeling well this morning and eager to return home following completion of her therapy sessions. She is on her home medication regimen and has plenty of medication at home. Kirk has requested some assistance with getting belongings to their car later today, I assured him that we would be ableto provide this. All questions and concerns were addressed to the best of my ability. Multidisciplinary discharge rounds: I participated in multidisciplinary bedside rounds today. Attendees included: patient, family member(s), physician, bedside nurse, lawn caretaker, physical therapist, occupational therapist and Social work. The patient will dismiss from the rehabilitation unit later today. During bedside rounds, we reviewed final recommendation for dismissal including location, ongoing therapies/medical care, and equipment as needed. OBJECTIVE Temperature: [36.5 ??C-36.8 ??C] 36.5 ??C Resp Rate: [15-16] 16 Blood Pressure: (121-139)/(64-93) 121/64 SpO2: [95 %-98 %] 98 % Weight: [66.7 kg] 66.7 kg BMI (Calculated): [22.5 kg/m??] 22.5 kg/m?? Physical Exam: General: Resting in bed this morning. Appears comfortable, in no acute distress. HEENT: Normocephalic, atraumatic. Hearing grossly intact. Mucus membranes moist. No scleral icterus,conjunctiva clear. Cardiovascular: Hemodynamically stable. Respiratory: No dyspnea or use of accessory muscles. Respiratory rate as noted above in vital signs. ASSESSMENT / PLAN Mrs. Aurora Langley is a 76-year-old, right-handed, [place]-speaking woman with past medical history of TBI with residual posttraumatic epilepsy, right spastic hemiparesis and expressive aphasia s/p SKY LINE YARDER shunt (1995) and lumbar spinal stenosis now status post L2-L5 lumbar laminectomy on 09/02/[address] Castellon. She is admitted to acute inpatient rehabilitation for lower extremity weakness and impairments in gait and ADL performance. Plan for today, September 25: - Dismiss home following therapies # Lumbar spinal stenosis with neurogenic claudication s/p L2-L5 laminectomy (09/02/21) # Progressive lower limb weakness # Gait unsteadiness # History of TBI resulting in spastic right hemiparesis, posttraumatic epilepsy and expressive aphasia - Comprehensive PT/OT, on a 25/12 schedule - Restrictions: 15-20 pound lifting restriction and no heavy lifting, twisting or bending for 6 weeks post-op which will be October 14 - Pain control regimen includes: Tylenol 1000 mg every 6 hours as needed - Continue home seizure medication regimen: carbamazepine 500 mg twice daily levetiracetam 500 mg every morning, 250 mg with lunch, 500 mg every evening folic acid 1,000 mcg daily - No neurosurgery follow up is indicated - Physical Medicine & Rehabilitation follow-up with Dr. Ross arranged for October 21 - Neurology consult recommended continuing at home doses of carbamazepine and levetiracetam - Diazepam 5 mg as needed for seizure-like activity for lasting greater than 5 minutes (one eye closed, face-glossing over, right eyelid twitching, and NOT responding or following commands), can be given twice for a total of 10 mg if not responsive to first dose ?? # Hyperlipidemia - Continue home atorvastatin 10 mg every 48 hours - Continue home aspirin 81 mg daily ?? FULL CODE as discussed with patient. Diet: Regular DVT prophylaxis: Lovenox Bowel: bowel medication regimen as needed Bladder: currently voiding at her baseline Disposition: anticipate discharge September 25; home with family support [place] [facility] [place] [phone] with any questions or concerns. ?? Niyah Early M.D. PM&R, PGY-2 Associated attestation - Teddy Avendano M.D., Ph.D. - 09/25/2021 5:19 PM CDT I saw and evaluated the patient, participating in the trinh portions of the service. I reviewed the resident/fellow???s note. I agree with the resident/fellow???s findings and plan. Ms. Langley is capable of participating in rehabilitation. She continues to progress towards functional independence in the area(s) of mobility, self-care, and communication and will benefit from ongoing intensive inpatient rehabilitation. I have met with the patient, and participated in her in-room team rounds. Ms. Langley was accompanied by her . Both, again, appear happy with her progress and are planning to go home on Tuesday a wish to complete a full day of therapy first. Ms. Langley was still sleeping at the time we entered the room but awoke easily and Mr. Langley said that she was feeling ???less tired?? than yesterday. She continues to do well in therapy is walking as much as 5 m with moderate assistance on smooth surfaces but still requires maximal assistance for a bed to wheelchair transfer. BP 135/86 (BP Location: Left arm;Upper, Patient Position: Sitting) Pulse 80 Temp 36.7 ??C (Oral) Resp 16 Ht 172.2 cm Wt 66.7 kg SpO2 95% BMI 22.49 kg/m?? No results found for this or any previous visit (from the past 24 hour(s)). Intake/Output Summary (Last 24 hours) at 09/25/2021 1715 Last data filed at 09/25/2021 1200 Gross per 24 hour Intake 500 ml Output 100 ml Net 400 ml Wt 66.7 kg initial weight 65.2 kg Ms. Langley has done well and is ready for discharge today.. She is essentially on her home medication regimen and has been scheduled for outpatient physical and occupational therapy. Mr. Langley hasbought a Shannan Stedy look-like it should be available at their home when they arrive. Please see Dr. Early's progress note and dismissal summary for additional details. Teddy Avendano M.D., Ph.D. PPE use information for possible contact monitoring: PPE used during visit: Provider was wearing a mask and eye protection throughout entire session. Patient was NOT wearing mask during entire session. Kyra Conroy P.T. - 09/24/2021 1:07 PM CDT [facility] SUBJECTIVE Patient's Name: Aurora Langley Medical Diagnosis: 1. Laminectomy Lumbar Status Post 2. Lack Of Coordination 3. Decline Functional Status 4. Imbalance Non Orthopedic 5. Weakness General 6. Unsteadiness Gait Disorder Non Orthopedic 7. Stenosis Spinal Lumbar With Neurogenic Claudication 8. Stenosis Spinal History of Present Illness: Patient is s/p L2-L5 laminectomies for lumbar stenosis with gait instability by Dr. 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 Onset Date: 09/02/21 Patient/Caregiver Goals: Be able to complete cares with support of spouse to return home Patient Comments: agreed to PT Precautions Other Precautions: fall, history of TBI, expressive aphasia, no functional use of RUE, R inattention, uses R AFO and knee brace for ambulation Fall Risk (65 and older) Fall in the last 12 months: Yes Did you have an injury with the fall?: No Are you fearful of falling?: Yes Fall Risk Comments: patient slipped out of the bed OBJECTIVE ankle foot orthosis vietnamese knee cage donned prior to arrival and donned throughout session Pain: in L knee Vitals: Bed, Chair, Wheelchair Transfers Transfer Surface: Bed, Chair, Wheelchair Transfer Approach: To and from, Stand pivot Transfer Equipment: No device Level of Assistance: Moderate assistance Gait Assessment/Training Distance (m): 5 m Surface: Even Device: Gait belt, Single rail Level of Assistance: Maximal assistance, Moderate assistance Stability: poor Cueing Provided: Visual, Tactile, Verbal Response: pt unable to respond to mirror feedback Seated Exercise - Side Addressed: Bilateral Sitting Surface: Wheelchair Seated Exercise: Ankle pumps, Marching, Long arc quads, Knee flexion, Hip abduction/adduction Sets/Repetitions: x10 each - performed in AM and PM sessions Seated Exercise 1: LE stretching Standing Exercise - Side Addressed: Bilateral Standing Exercise: Sidestepping Standing Exercise 1: midline training Patient/Family Education: for safe mob Education Provided to: Marcio Learner's Response: No evidence of learning observed At the end of today's therapy session patient was left seated in a wheelchair with a Roho cushion and marcellab present with an appropriate call light within reach. Patient's needs and questions addressed during today's session. Contact monitoring: PPE used during therapy: Therapist was wearing the following PPE throughout entire session: surgicalmask and eye protection Patient was wearing a mask during therapy session: yes Family member/caregiver present was wearing a mask: yes Assessment Pt seen in room initially; transferring via shannan stedy wheelchair<=>commode. Marcellab practiced all transfers and is proficient. LE stretching/range of motion/neuromuscular reeducation performed. Gait at hemirail with max A. NuStep X 5' with bilat Les and L UE. Plan to continue per plan of care to increase safe mob and insure kristy is confident w all cares. Barriers to Discharge Home: Current functional status, Safety concerns, Fall risk Barriers to Discharge Comments: Requires assist of two for mobilizing Comorbid Conditions: Other (Comment), Cerebrovascular accident Personal Factors: Balance impairment, Communication deficit, Hand dominance, History of falls, Needsassistive device, Safety awareness Level of Care Needed - PT: Assistance with transfers (Comment), Assistance with walking and moving around the home, Assistance with bed mobility, Cognitive assistance needed Equipment Recommended - PT: Other (Comment), Wheelchair Equipment Vendor - PT: pending ongoing assessment, Shannan Stedy may be beneficial for transfers/etc. Functional Goals and Timeframes: PT Goal #1: Patient and spouse will be able to perform bed mobility using no hospital bed features with Min A x1 in order to increase independence in home. PT Goal #1 Status: Achieved PT Goal #2: Patient will be able to complete sit to/from stand transfer using Shannan Stedy or most appropriate gait device with Min A x1 in order to improve household mobility. PT Goal #2 Status: Progressing PT Goal #3: At discharge, patient will be able to perform stand pivot transfer using least restrictive device with Mod A x1 in order to improve household mobility. PT Goal #3 Status: Progressing PT Goal #4: Patient will demonstrate ability to maintain unsupported sitting at least 10 minutes to improve mobility and safety. PT Goal #4 Status: Progressing Progress: Progressing toward goals Plan Patient agrees with the plan of care and goals. Treatment Plan: PT Frequency: 6 times per week PT Amount: 2 visits per day PT Inpatient Duration : Until goals are met or hospital discharge Plan: Continue with current plan Treatment interventions may include: Treatment/Interventions: Therapeutic exercise, Therapeutic functional activity, Neuromuscular re-education, Gait training, Self-care/home management, Orthosis [id number] Other PT Interventions: Seating Clinic (on rehab unit) Time Spent with Patient Therapeutic Interventions Gait Training (min): 40 min Neuromuscular Re-Education (min): 30 min Therapeutic Exercise (min): 20 min Time Tracking Total Timed Units (min): 90 min Total Treatment Time (min): 90 min PT Individual : 90 Minutes Kyra Conroy P.T. Fanny Deal M.S., O.T. - 09/24/2021 8:31 AM CDT Occupational Therapy Rehabilitation [facility] Inpatient Progress Note SUBJECTIVE Patient's Name: Aurora Langley Reason for Referral: OT Evaluate and Treat: Inpatient rehabilitation Medical Diagnosis: 1. Laminectomy Lumbar Status Post 2. Lack Of Coordination 3. Decline Functional Status 4. Imbalance Non Orthopedic 5. Weakness General 6. Unsteadiness Gait Disorder Non Orthopedic 7. Stenosis Spinal Lumbar With Neurogenic Claudication 8. Stenosis Spinal History of Present Illness: Patient is s/p L2-L5 laminectomies for lumbar stenosis with gait instability by Dr. 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 Onset Date: 09/02/21 Patient/Caregiver Goals: Be able to complete cares with support of spouse to return home Patient Comments: Patient and agreeable to occupational therapy. Precautions Other Precautions: fall, history of TBI, expressive aphasia, no functional use of RUE, R inattention, uses R AFO and knee brace for ambulation Fall Risk (65 and older) Fall in the last 12 months: Yes Did you have an injury with the fall?: No Are you fearful of falling?: Yes OBJECTIVE Pain: No pain reported today. Vitals: Not indicated at this time Therapeutic Exercise ?? Facilitated continued upper body strengthening of LUE to transfer skills needed for safe functional transfers with grab bars, SaraStedy, and railings. Emphasized shoulder flexion and abduction, elbow flexion, and scapular retraction. Patient tolerated 2 sets of 10 reps each, with and without resistance. Patient indicates that she enjoys greater resistance for pulling motions. She fatigued before 10threpetition of shoulder flexion exercises but was agreeable to continue with encouragement. Please continue resistance band exercises to strengthen left arm for functional transfers. Issued orange (low resistance), pink (medium resistance), and green (high resistance) TheraBands for graded resistance. Patient benefits from color making supervisor resistance for lifting actions and greater resistance for pulling actions. Recommend anchoring Therabands on a chair, closed door, or with assistance from caregiver to create resistance. Complete 3 sets of 10 reps, 3x/week: ??? Shoulder flexion and extension ??? Shoulder abduction ??? Elbow flexion and extension Provided Shoulder Strengthening Exercises Using an Elastic Band (Seated) ([id number]) for improved carry-over and hand off for home-based occupational therapy. Neuro Re-Education Instructed patient on seated and standing toe-taps onto 4 block to facilitate L<>R weight shifting needed for functional transfers with Tammie. Patient required moderate-maximum assist x1 forstanding with cue for LUE to hold onto bed railing for stability. Patient tolerated 30 repetitions of R lateral and anterior toe taps from seated level. Required moderate assistance from therapist to clear foot over box after initial reps due to fatigue. Patient able to perform lateral toe taps towards the left while balancing on RLE with maximum assistance x2. Patient demonstrated buckling of R knee, but with support was able to push into knee/hip extension to balance upright. Manual Therapy ?? Facilitated passive scapular mobilizations to??improve shoulder mobility for joint protection and spasticity management of RUE.??Emphasized scapular retraction/protraction, elevation/depression while approximating the R humeral head in the glenohumeral joint. Patient reported that the mobilizations felt good and tolerated prolonged low-load holds. Facilitated prolonged holds of R shoulder, elbow, andwrist to end range of motion. Emphasized flexion, extension, and supination/pronation. Patient/Family Education: Provided handout to explore future bathroom equipment for safe showering. Patient's reports they are comfortable and confident with their current setup. Educated that if patient requires increased assistance as Education Provided to: Aurora and Kirk Learner's Response: Able to demonstrate, Requires cueing and Requires continued education At the end of today's therapy session patient was left in bed with an appropriate call light within reach. Patient's needs and questions addressed during today's session. Contact monitoring: PPE used during therapy: Therapist was wearing the following PPE throughout entire session: surgicalmask and eye protection Patient was wearing a mask during therapy session: no Family member/caregiver present was wearing a mask: no Assessment Patient is progressing with functional skills needed to perform activities of daily living. At baseline, patient received assistance from her but has experienced a decline in functional status s/p??L2-L5 laminectomies.??Patient currently??requires varying levels of assist (from setup to total assistance) for self-cares due to BLE weakness??(R>L), decreased activity tolerance, and impaired functional balance. Patient continues to benefit from skilled occupational therapy services to progress functional performance??and participation in daily tasks while??optimizing safety for both patientand .?? Barriers to Discharge Home: Current functional status, Safety concerns, Fall risk Barriers to Discharge Comments: Requires assist of two for mobilizing Comorbid Conditions: Other (Comment), Cerebrovascular accident (see [facility] for full medical history) Personal Factors: Balance impairment, Communication deficit, Hand dominance, History of falls, Needsassistive device, Safety awareness Discharge Therapy Needs - OT: Ongoing skilled occupational therapy Level of Care Needed - OT: Assistance with toileting, Assistance with toilet/shower transfers, Assistance with medication set up/administration, Assistance with showering/bathing, Assistance with dressing, Physical assistance needed, Assistance with meal preparation, Assistance with student financial services counselor, Assistance with transportation, Assistance with housekeeping, Assistance with shopping, Cognitiveassistance needed, Assistance with eating/feeding Recommended Adaptive Equipment - OT: Shower chair with back, Grab bar(s) in shower, Hand held showerhead, Bed rail(s), Bedside commode (Patient's has significant equipment options at home and is open to any and all suggestions. Since admission, patient's has purchased bed rail, adaptive dishware, Dycem, and wet wipes for improved self-cares with caregiver assistance.) Functional Goals and Timeframes: OT Goal #1: STG: Pt will complete pivot commode transfer with minimal assistance x1 and use of adaptive equipment as needed. OT Goal #1 Status: Progressing OT Goal #2: STG: Patient will complete LB dressing with use of adaptive equipment with moderate assist of 1. OT Goal #2 Status: Progressing OT Goal #3: STG: Pt will be able to maintain standing with adaptive setup and moderate assistance toallow caregiver to safely assist with clothing management for self cares and to participate in grooming tasks. OT Goal #3 Status: Progressing OT Goal #4: LTG: Pt's spouse will verbalize understanding on safe mechanics and DME for patient to continue to participate with ADL cares. OT Goal #4 Status: Progressing Progress: Progressing toward goals Plan Patient agrees with the plan of care and goals. Treatment Plan: OT Frequency: 5 times per week OT Amount: 2 visits per day OT Inpatient Duration : Until goals are met or hospital discharge Plan: Continue with current plan Treatment interventions may include: Treatment Interventions: Therapeutic exercise, Therapeutic functional activity, Neuromuscular re-education, Self-care/home management, Manual therapy Therapeutic Interventions Manual Therapy (min): 20 min Neuromuscular Re-Education (min): 30 min Therapeutic Exercise (min): 30 min Time Tracking Total Timed Units (min): 80 min Total Treatment Time (min): 80 min OT Individual: 80 Minutes Fanny Deal M.S., O.T. Niyah Early M.D. - 09/24/2021 7:21 AM CDT SUBJECTIVE Mrs. Aurora Langley is a 76-year-old, right-handed, [place]-speaking woman with past medical history of TBI with residual posttraumatic epilepsy, right spastic hemiparesis and expressive aphasia s/p SKY LINE YARDER shunt (1995) and lumbar spinal stenosis now status post L2-L5 lumbar laminectomy on 09/02/[address] Castellon. She is admitted to acute inpatient rehabilitation for lower extremity weakness and impairments in gait and ADL performance. Aurora feels well this morning and is about to begin eating breakfast. She and Kirk are quite pleasedabout returning home tomorrow. They plan to complete morning and afternoon therapies and depart for home late afternoon. Aurora is on her home medication regimen, of which they have plenty and do not need any refills. Outpatient therapy orders have been sent and they will receive a phone call to schedule. Kirk prefers to schedule her primary care appointment himself. PM&R follow up with Dr. Ross is arranged for October and neurosurgery follow up is not indicated per Dr. Castellon's service. All questions and concerns were addressed to the best of my ability. OBJECTIVE Temperature: [36.3 ??C-36.7 ??C] 36.3 ??C Resp Rate: [15-16] 16 Blood Pressure: (132-142)/(75-85) 135/75 SpO2: [96 %-97 %] 96 % Physical Exam: General: Well-appearing woman seated in her chair morning about to begin breakfast including scrambled eggs and sausage. Appears comfortable, in no acute distress. HEENT: Normocephalic, atraumatic. Hearing grossly intact. Mucus membranes moist. No scleral icterus,conjunctiva clear. Cardiovascular: Hemodynamically stable. Respiratory: No dyspnea or use of accessory muscles. Respiratory rate as noted above in vital signs. Extremities: Right AFO in place. ASSESSMENT / PLAN Mrs. Aurora Langley is a 76-year-old, right-handed, [place]-speaking woman with past medical history of TBI with residual posttraumatic epilepsy, right spastic hemiparesis and expressive aphasia s/p SKY LINE YARDER shunt (1995) and lumbar spinal stenosis now status post L2-L5 lumbar laminectomy on 09/02/[address] Castellon. She is admitted to acute inpatient rehabilitation for lower extremity weakness and impairments in gait and ADL performance. Plan for todaySeptember 24: - Prepare for dismissal home tomorrow after therapies # Lumbar spinal stenosis with neurogenic claudication s/p L2-L5 laminectomy (09/02/21) # Progressive lower limb weakness # Gait unsteadiness # History of TBI resulting in spastic right hemiparesis, posttraumatic epilepsy and expressive aphasia - Comprehensive PT/OT, on a 25/12 schedule - Restrictions: 15-20 pound lifting restriction and no heavy lifting, twisting or bending for 6 weeks post-op which will be October 14 - Pain control regimen includes: Tylenol 1000 mg every 6 hours as needed - Continue home seizure medication regimen: carbamazepine 500 mg twice daily levetiracetam 500 mg every morning, 250 mg with lunch, 500 mg every evening folic acid 1,000 mcg daily - No neurosurgery follow up is indicated - Physical Medicine & Rehabilitation follow-up with Dr. Ross arranged for October 21 - Neurology consult recommended continuing at home doses of carbamazepine and levetiracetam - Diazepam 5 mg as needed for seizure-like activity for lasting greater than 5 minutes (one eye closed, face-glossing over, right eyelid twitching, and NOT responding or following commands), can be given twice for a total of 10 mg if not responsive to first dose ?? # Hyperlipidemia - Continue home atorvastatin 10 mg every 48 hours - Continue home aspirin 81 mg daily ?? FULL CODE as discussed with patient. Diet: Regular DVT prophylaxis: Lovenox Bowel: bowel medication regimen as needed Bladder: currently voiding at her baseline Disposition: anticipate discharge September 25; home with family support [place] [facility] [place] [phone] with any questions or concerns. ?? Niyah Early M.D. PM&R, PGY-2 Associated attestation - Teddy Avendano M.D., Ph.D. - 09/25/2021 6:59 PM CDT I saw and evaluated the patient, participating in the trinh portions of the service. I reviewed the resident/fellow???s note. I agree with the resident/fellow???s findings and plan. Ms. Langley is capable of participating in rehabilitation. She continues to progress towards functional independence in the area(s) of mobility, self-care, and communication and will benefit from ongoing intensive inpatient rehabilitation. I have met with the patient and her . Both remain very happy with her progress and tell me they are comfortable with going home tomorrow. They would, however, preferred to stay throughout the day and return home later in the afternoon after the completed all the therapy sessions. Ms. Langley's neurological examination appeared to be grossly stable. She stated that she was happy with return home but was focus for the most part on her supper during my visit. She continues to gabriella in therapy is walking short distance with moderate assistance but still requires maximal assistance for transfers. (The Shivam's have bought a transfer device to supplement their long-standing home equipment.) BP 135/86 (BP Location: Left arm;Upper, Patient Position: Sitting) Pulse 80 Temp 36.7 ??C (Oral) Resp 16 Ht 172.2 cm Wt 66.7 kg SpO2 95% BMI 22.49 kg/m?? No results found for this or any previous visit (from the past 24 hour(s)). Intake/Output Summary (Last 24 hours) at 09/25/2021 7345 Last data filed at 09/25/2021 1200 Gross per 24 hour Intake 500 ml Output 100 ml Net 400 ml Wt 66.7 kg initial weight 65.2 kg Ms. Langley has done extremely well and is ready for discharge tomorrow. She is back on her home medication regimen and has been scheduled for outpatient physical and occupational therapy. Teddy Avendano M.D., Ph.D. PPE use information for possible contact monitoring: PPE used during visit: Provider was wearing a mask and eye protection throughout entire session. Patient was NOT wearing mask during entire session. Fanny Deal M.S., O.T. - 09/23/2021 12:17 PM CDT Occupational Therapy Rehabilitation [facility] Inpatient Progress Note SUBJECTIVE Patient's Name: Aurora Langley Reason for Referral: OT Evaluate and Treat: Inpatient rehabilitation Medical Diagnosis: 1. Laminectomy Lumbar Status Post 2. Lack Of Coordination 3. Decline Functional Status 4. Imbalance Non Orthopedic 5. Weakness General 6. Unsteadiness Gait Disorder Non Orthopedic 7. Stenosis Spinal Lumbar With Neurogenic Claudication 8. Stenosis Spinal History of Present Illness: Patient is s/p L2-L5 laminectomies for lumbar stenosis with gait instability by Dr. 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 Onset Date: 09/02/21 Patient/Caregiver Goals: Be able to complete cares with support of spouse to return home Patient Comments: Patient and agreeable to occupational therapy. Precautions Other Precautions: fall, history of TBI, expressive aphasia, no functional use of RUE, R inattention, uses R AFO and knee brace for ambulation Fall Risk (65 and older) Fall in the last 12 months: Yes Did you have an injury with the fall?: No Are you fearful of falling?: Yes OBJECTIVE Pain: No pain indicated at this time. Vitals: Not indicated at this time Manual Therapy ?? Facilitated passive scapular mobilizations to??improve shoulder mobility for joint protection and spasticity management of RUE. Emphasized scapular retraction/protraction, elevation/depression while approximating the R humeral head in the glenohumeral joint. Patient reported that the mobilizations felt good and tolerated 10 reps of each movement with prolonged low-load holds. Patient tolerated passive range of motion of R shoulder to 90 degrees flexion and approximately 20 degrees extension. Patient's R elbow is 90 degrees flexed at rest; patient tolerated full passive range of elbow flexion, but therapist was only able to achieve approximately 110 degrees elbow extension with prolonged stretch. Patient and are satisfied with this current presentation, as patient had performed self-range of motion of RUE for the past couple of decades for joint and skin protection. No pain reported during session. Therapeutic Activity Patient performed mass repetition of low--pivot transfers from wheelchair<>bed with good carry-over of use of bedrail. Cues for foot placement, hand placement, and body mechanics for reduced riskof injury for patient or . Required moderate assist x1. Patient tolerated 8 transfers total with brief rest breaks in between and with L<>R approaches. [place] setup for bed transfers are the following: ?? (1) get into bed with low-pivot transfer towards the left with use of bed rail (2) get out of bed with low-pivot transfer towards the right with use of wall railing installed on bedroom wall ?? Patient's was pleased with performance and purchased a bed rail from [employer] at end of session. Patient and patient's understanding that they may use SaraStedy if the above setup does not work long-term. Patient/Family Education: bathroom equipment, functional transfers, bed rail for bed transfers Education Provided to: Gitta and Learner's Response: Able to demonstrate, Requires cueing and Requires continued education At the end of today's therapy session patient was left in bed with present with an appropriate call light within reach. Patient's needs and questions addressed during today's session. Contact monitoring: PPE used during therapy: Therapist was wearing the following PPE throughout entire session: surgicalmask and eye protection Patient was wearing a mask during therapy session: no Family member/caregiver present was wearing a mask: no Assessment Patient is progressing with functional skills needed to perform activities of daily living. Today,??patient performed low-pivot transfers from wheelchair<>bed with moderate assistance and good carry-over use of bed rail. Patient performs best with use of SaraStedy??for toilet??transfers, and??patient and have benefitted from ongoing training for pivot transfers for improved safety in sit uations in which the SaraStedy cannot fit. ?? At baseline, patient received assistance from her but has experienced a decline in functional status s/p L2-L5 laminectomies. Patient currently requires varying levels of assist (from setup to total assistance) for self-cares due to BLE weakness??(R>L), decreased activity tolerance, and impaired functional balance.Patient continues to benefit from skilled occupational therapy services to progress functional performance??and participation in daily tasks while??optimizing safety for both patient and .?? Barriers to Discharge Home: Current functional status, Safety concerns, Fall risk Barriers to Discharge Comments: Requires assist of two for mobilizing Comorbid Conditions: Other (Comment), Cerebrovascular accident (see [facility] for full medical history) Personal Factors: Balance impairment, Communication deficit, Hand dominance, History of falls, Needsassistive device, Safety awareness Discharge Therapy Needs - OT: Ongoing skilled occupational therapy Level of Care Needed - OT: Assistance with toileting, Assistance with toilet/shower transfers, Assistance with medication set up/administration, Assistance with showering/bathing, Assistance with dressing, Physical assistance needed, Assistance with meal preparation, Assistance with student financial services counselor, Assistance with transportation, Assistance with housekeeping, Assistance with shopping, Cognitiveassistance needed, Assistance with eating/feeding Functional Goals and Timeframes: OT Goal #1: STG: Pt will complete pivot commode transfer with minimal assistance x1 and use of adaptive equipment as needed. OT Goal #1 Status: Progressing OT Goal #2: STG: Patient will complete LB dressing with use of adaptive equipment with moderate assist of 1. OT Goal #2 Status: Progressing OT Goal #3: STG: Pt will be able to maintain standing with adaptive setup and moderate assistance toallow caregiver to safely assist with clothing management for self cares and to participate in grooming tasks. OT Goal #3 Status: Progressing OT Goal #4: LTG: Pt's spouse will verbalize understanding on safe mechanics and DME for patient to continue to participate with ADL cares. OT Goal #4 Status: Progressing Progress: Progressing toward goals Plan Patient agrees with the plan of care and goals. Treatment Plan: OT Frequency: 5 times per week OT Amount: 2 visits per day OT Inpatient Duration : Until goals are met or hospital discharge Plan: Continue with current plan Treatment interventions may include: Treatment Interventions: Therapeutic exercise, Therapeutic functional activity, Neuromuscular re-education, Self-care/home management, Manual therapy Therapeutic Interventions Manual Therapy (min): 30 min Therapeutic Activity (min): 60 min Time Tracking Total Timed Units (min): 90 min Total Treatment Time (min): 90 min Fanny Deal M.S., O.T. Kyra Conroy PNasima - 09/23/2021 11:43 AM CDT [facility] In[facility] Treatment SUBJECTIVE Patient's Name: Aurora Langley Medical Diagnosis: 1. Laminectomy Lumbar Status Post 2. Lack Of Coordination 3. Decline Functional Status 4. Imbalance Non Orthopedic 5. Weakness General 6. Unsteadiness Gait Disorder Non Orthopedic 7. Stenosis Spinal Lumbar With Neurogenic Claudication 8. Stenosis Spinal History of Present Illness: Patient is s/p L2-L5 laminectomies for lumbar stenosis with gait instability by Dr. 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 Onset Date: 09/02/21 Patient/Caregiver Goals: Be able to complete cares with support of spouse to return home Patient Comments: agreed to PT Precautions Other Precautions: fall, history of TBI, expressive aphasia, no functional use of RUE, R inattention, uses R AFO and knee brace for ambulation Fall Risk (65 and older) Fall in the last 12 months: Yes Did you have an injury with the fall?: No Are you fearful of falling?: Yes OBJECTIVE R LE bracing donned prior to arrival and donned throughout session Pain: Vitals: Bed Mobility - Supine to Sit Level of Assistance: Supervision/Set-up Device: Bed rail Bed Mobility - Sit to Supine Level of Assistance: Minimal assistance Sit to Stand Transfers Transfer Surface: Wheelchair Transfer Equipment: Gait belt, Single rail Level of Assistance: Minimal assistance, Moderate assistance Stand to Sit Transfers Transfer Surface: Wheelchair Transfer Equipment: Gait belt, Single rail Level of Assistance: Moderate assistance Bed, Chair, Wheelchair Transfers Transfer Surface: Bed, Wheelchair Transfer Approach: To and from, Stand pivot Transfer Equipment: Sit to stand machine Level of Assistance: Maximal assistance Supine Exercise - Side Addressed: Bilateral Supine Exercise: Ankle pumps, Heel slides, Short arc quads, AAROM all planes/motions Supine Exercise 1: L LE calf stretch and hamstring stretch Seated Exercise - Side Addressed: Bilateral Sitting Surface: Wheelchair Seated Exercise: Ankle pumps, Marching, Long arc quads, Knee flexion, Hip abduction/adduction Standing Exercise - Side Addressed: Bilateral Standing Exercise: Sidestepping Patient/Family Education: for safe mob Education Provided to: Aurora and kristy Learner's Response: Requires continued education At the end of today's therapy session patient was left seated in a wheelchair with a Roho cushion w kristy present with an appropriate call light within reach. Patient's needs and questions addressed during today's session. Contact monitoring: PPE used during therapy: Therapist was wearing the following PPE throughout entire session: surgicalmask and eye protection Patient was wearing a mask during therapy session: yes Family member/caregiver present was wearing a mask: yes Assessment Pt seen in room; kristy indep with shannan steady transfers as well as all toileting. Transported to PT gym. Kristy stated he did not feel a simulated car transfer was necessary. R UE/LE neuromuscular reeducation performed sup/seated/standing. Standing balance/ambulation at hemirail with max A for upright balance, R/L leg propulsion/placement and wt shift. Kristy video of walking. NuStep X 5 min bilat LE and L UE. Plan to continue per plan of care to increase safety with functional mob for safe dc home w kristy. Barriers to Discharge Home: Current functional status, Safety concerns, Fall risk Comorbid Conditions: Other (Comment), Cerebrovascular accident Personal Factors: Balance impairment, Communication deficit, Hand dominance, History of falls, Needsassistive device, Safety awareness Level of Care Needed - PT: Assistance with transfers (Comment), Assistance with walking and moving around the home, Assistance with bed mobility, Cognitive assistance needed Equipment Recommended - PT: Other (Comment), Wheelchair Equipment Vendor - PT: pending ongoing assessment, Shannan Stedy may be beneficial for transfers/etc. Functional Goals and Timeframes: PT Goal #1: Patient and spouse will be able to perform bed mobility using no hospital bed features with Min A x1 in order to increase independence in home. PT Goal #1 Status: Achieved PT Goal #2: Patient will be able to complete sit to/from stand transfer using Shannan Stedy or most appropriate gait device with Min A x1 in order to improve household mobility. PT Goal #2 Status: Progressing PT Goal #3: At discharge, patient will be able to perform stand pivot transfer using least restrictive device with Mod A x1 in order to improve household mobility. PT Goal #3 Status: Progressing PT Goal #4: Patient will demonstrate ability to maintain unsupported sitting at least 10 minutes to improve mobility and safety. PT Goal #4 Status: Progressing Progress: Progressing toward goals Plan Patient agrees with the plan of care and goals. Treatment Plan: PT Frequency: 6 times per week PT Amount: 2 visits per day PT Inpatient Duration : Until goals are met or hospital discharge Plan: Continue with current plan Treatment interventions may include: Treatment/Interventions: Therapeutic exercise, Therapeutic functional activity, Neuromuscular re-education, Gait training, Self-care/home management, Orthosis [id number] Time Spent with Patient Therapeutic Interventions Gait Training (min): 30 min Neuromuscular Re-Education (min): 30 min Therapeutic Activity (min): 30 min Time Tracking Total Timed Units (min): 90 min Total Treatment Time (min): 90 min PT Individual : 90 Minutes Kyra Conroy P.T. Niyah Early M.D. - 09/23/2021 7:08 AM CDT SUBJECTIVE Mrs. Aurora Langley is a 76-year-old, right-handed, [place]-speaking woman with past medical history of TBI with residual posttraumatic epilepsy, right spastic hemiparesis and expressive aphasia s/p SKY LINE YARDER shunt (1995) and lumbar spinal stenosis now status post L2-L5 lumbar laminectomy on 09/02/[address] Castellon. She is admitted to acute inpatient rehabilitation for lower extremity weakness and impairments in gait and ADL performance. Aurora is pleased with her progress and she and Kirk expressed to the entire team this morning that they are feeling comfortable with returning home following therapies on Tuesday. She reports that she slept well last night and is feeling rested this morning. They both expressed gratitude for the modifications to the commode they brought in from home that occupational therapy was able to make yesterday. I reached out to the neurosurgery service yesterday and there is no indication for follow up. All questions and concerns were addressed to the best of my ability. Multidisciplinary discharge rounds: I participated in multidisciplinary bedside rounds today. Attendees included: patient, family member(s), physician, bedside nurse, lawn caretaker, physical therapist, occupational therapist and Social work. Medical updates were provided. Also discussed was progress toward patient centered goals, ongoing rehabilitation needs and dismissal planning. OBJECTIVE Temperature: [36.5 ??C-36.7 ??C] 36.7 ??C Resp Rate: [14-15] 15 Blood Pressure: (94-137)/(53-85) 126/64 SpO2: [94 %-96 %] 94 % Weight: [64.2 kg] 64.2 kg BMI (Calculated): [21.7 kg/m??] 21.7 kg/m?? Physical Exam: General: Well-appearing woman seated in her chair morning awaiting breakfast with her preferred dishes in front of her. Appears comfortable, dressed and ready for the day. HEENT: Normocephalic, atraumatic. Hearing grossly intact. Mucus membranes moist. No scleral icterus,conjunctiva clear. Cardiovascular: Hemodynamically stable. Respiratory: No dyspnea or use of accessory muscles. Respiratory rate as noted above in vital signs. Extremities: Right AFO in place. ASSESSMENT / PLAN Mrs. Aurora Langley is a 76-year-old, right-handed, [place]-speaking woman with past medical history of TBI with residual posttraumatic epilepsy, right spastic hemiparesis and expressive aphasia s/p SKY LINE YARDER shunt (1995) and lumbar spinal stenosis now status post L2-L5 lumbar laminectomy on 09/02/[address] Castellon. She is admitted to acute inpatient rehabilitation for lower extremity weakness and impairments in gait and ADL performance. Plan for todaySeptember 23: - Continue with comprehensive inpatient rehabilitation - No neurosurgery follow up indicated - Monitor for neurologic change including possible seizure activity. # Lumbar spinal stenosis with neurogenic claudication s/p L2-L5 laminectomy (09/02/21) # Progressive lower limb weakness # Gait unsteadiness # History of TBI resulting in spastic right hemiparesis, posttraumatic epilepsy and expressive aphasia - Comprehensive PT/OT, transition to 25/12 schedule - Restrictions: 15-20 pound lifting restriction and no heavy lifting, twisting or bending for 6 weeks post-op which will be October 14 - Pain control regimen includes: Tylenol 1000 mg every 6 hours as needed - Continue home seizure medication regimen: carbamazepine 500 mg twice daily levetiracetam 500 mg every morning, 250 mg with lunch, 500 mg every evening folic acid 1,000 mcg daily - No neurosurgery follow up is indicated - Physical Medicine & Rehabilitation follow-up with Dr. Ross arranged for October 21 - Neurology consult recommended continuing at home doses of carbamazepine and levetiracetam - Diazepam 5 mg as needed for seizure-like activity for lasting greater than 5 minutes (one eye closed, face-glossing over, right eyelid twitching, and NOT responding or following commands), can be given twice for a total of 10 mg if not responsive to first dose ?? # Hyperlipidemia - Continue home atorvastatin 10 mg every 48 hours - Continue home aspirin 81 mg daily ?? FULL CODE as discussed with patient. Diet: Regular DVT prophylaxis: Lovenox Bowel: bowel medication regimen as needed Bladder: currently voiding at her baseline Disposition: anticipate discharge September 25; goal to home with family support [place] [facility] [place] [place] [phone] with any questions or concerns. ?? Niyah Early M.D. PM&R, PGY-2 Associated attestation - Teddy Avendano M.D., Ph.D. - 09/23/2021 4:29 PM CDT I saw and evaluated the patient, participating in the trinh portions of the service. I reviewed the resident/fellow???s note. I agree with the resident/fellow???s findings and plan. Ms. Langley is capable of participating in rehabilitation. She continues to progress towards functional independence in the area(s) of mobility, self-care, and communication and will benefit from ongoing intensive inpatient rehabilitation. I have met with the patient, observed her in physical therapy, and participated in her in room team rounds. Ms. Langley was accompanied by her . Both, again, appear happy with her progress and are planning to go home on Tuesday. I observed her in physical therapy. She was standing in the parallel bars using 1 railing and walked a few steps with maximal assistance and 1 imbalance requiring rapid stabilization. Low pivot transfers require moderate assistance with the therapist noting good carry-over her technique from previous sessions. BP 132/85 (BP Location: Left arm;Upper, Patient Position: Sitting) Pulse 81 Temp 36.7 ??C (Oral) Resp 15 Ht 172.2 cm Wt 64.2 kg SpO2 97% BMI 21.65 kg/m?? No results found for this or any previous visit (from the past 24 hour(s)). Intake/Output Summary (Last 24 hours) at 09/23/2021 1628 Last data filed at 09/23/2021 1300 Gross per 24 hour Intake 1200 ml Output 100 ml Net 1100 ml Wt 64.2 kg initial weight 65.2 kg Ms. Langley continues to do well. We will, as outlined yesterday, continue with her program and work for discharge home with outpatient therapy and the care of her Tuesday. Teddy Avendano M.D., Ph.D. PPE use information for possible contact monitoring: PPE used during visit: Provider was wearing a mask and eye protection throughout entire session. Patient was NOT wearing mask during entire session. Denise Macedo, P.T.Michael. - 09/22/2021 4:15 PM CDT Physical Therapy Rehabilitation [facility] Inpatient Treatment SUBJECTIVE Patient's Name: Aurora Langley Reason for Referral: PT Evaluate and Treat: Inpatient rehabilitation Medical Diagnosis: 1. Laminectomy Lumbar Status Post 2. Lack Of Coordination 3. Decline Functional Status 4. Imbalance Non Orthopedic 5. Weakness General 6. Unsteadiness Gait Disorder Non Orthopedic 7. Stenosis Spinal Lumbar With Neurogenic Claudication 8. Stenosis Spinal History of Present Illness: Patient is s/p L2-L5 laminectomies for lumbar stenosis with gait instability by Dr. 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 Onset Date: 09/02/21 Patient/Caregiver Goals: Be able to complete cares with support of spouse to return home Precautions Other Precautions: fall, history of TBI, expressive aphasia, no functional use of RUE, R inattention, uses R AFO and knee brace for ambulation OBJECTIVE ankle foot orthosis donned prior to mobility and throughout all functional mobility Pain: No pain Vitals: Not indicated at this time Bed Mobility - Sit to Supine # of Assistants: 1 Level of Assistance: Minimal assistance Device: None Cuing: Verbal, Tactile Comments: light assistance lifting R LE onto bed Sit to Stand Transfers # of Assistants: 1 Transfer Surface: Wheelchair Transfer Equipment: Gait belt, Single rail Level of Assistance: Minimal assistance, Moderate assistance Assessment/Delivery: Assessed, Instructed, Therapist assisted, Facilitated Comments: varies between minimal assistance to moderate assistance depending on fatigue Stand to Sit Transfers # of Assistants: 1 Transfer Surface: Wheelchair Transfer Equipment: Gait belt, Single rail Level of Assistance: Moderate assistance Assessment/Delivery: Assessed, Instructed, Therapist assisted, Facilitated Comments: Facilitation for slow controlled eccentric descent. facilitation for midline and stabilitythroughout Bed, Chair, Wheelchair Transfers # of Assistants: 1 Transfer Surface: Bed, Wheelchair (Therapy mat) Transfer Approach: To and from, Stand pivot, To the left Level of Assistance: Maximal assistance Assessment/Delivery: Assessed, Instructed, Educated, Therapist assisted, Facilitated Comments: Patient did very well with stand and stepping with L foot, maximal assistance and max cuesfor sequencing, turning, hip placement, and controlled decent. Gait Assessment/Training Distance (m): 2 m Surface: Even, Smooth/hard Device: No device, Gait belt, Single rail # of Assistants: 1 (2nd for wheelchair follow) Level of Assistance: Moderate assistance Quality/Pattern: Decreased heel strike, Decreased stance time R, Decreased base of support, Step-to,Scissoring Assessment of Gait: Patient demonstrated decreased heel contact and stance time on the R LE, with forward flexed posture and downward gaze. Demonstrates flexed knee posture R>L. Relying heavily on the L UE on the rail requiring max cues to lift elbow off rail. Narrowed base of support with fatigue Cueing Provided: Verbal, Tactile Training/Intervention: Therapist faciltiating weight shifts and stability. Response: Patient fatiguing quickly and attempting to sit down very quickly without warning. Continuing to require cues for upright posture, hand placement on rail, and arm extension to elbow is not supported on rail. Patient demonstrated increased fatigue this date PT Neuromuscular Re-education Neuromuscular Re-education 1: sitting balance activity with focus on L UE coordination in batting balloon back and forth, cues to turn head to find balloon and hit target with hand Neuromuscular Re-education 2: Coordination training for B LE kicking soccer ball. R solid ankle footorthosis to assist with dorsiflexion Balance Retraining Static Standing Balance: Static standing, Lateral weight shifts Support Required: One UE support, Moderate assistance Supine Exercise - Side Addressed: Bilateral Supine Exercise: Ankle pumps, Heel slides, Short arc quads, AAROM all planes/motions Exercise Mode: Active assistance (comment) Seated Exercise - Side Addressed: Bilateral Sitting Surface: Wheelchair Seated Exercise: Ankle pumps, Marching, Long arc quads, Knee flexion, Hip abduction/adduction Exercise Mode: Active motion against gravity, Elastic band (comment) Seated Exercise Comments: Visual and tactile cues for long-arc quads for patient understanding, green theraband for knee flexion Standing Exercise - Side Addressed: Bilateral Standing Exercise: Marching Exercise Mode: Active motion against gravity Standing Exercise Comments: Patient attempted to sit quickly Pressure Mapping Peak Pressure: 78 Average Pressure: 23 Pressure Surface Area: 200.75 Wheelchair Propulsion #1 Propulsion Type : Manual Distance: 20ft forward and backwards Method: Right lower extremity, Left lower extremity Terrain Description: Smooth level surface Level of Assistance: Minimal assistance Assessment/Treatment: Assessed, Instructed, Educated, Therapist assisted Patient/Family Education: Education on ankle foot orthosis wear time and reasoning, education on transfers Education Provided to: Sal Learner's Response: Requires continued education At the end of today's therapy session patient was left seated in a wheelchair with an appropriate call light within reach. Patient's needs and questions addressed during today's session. Contact monitoring: PPE used during therapy: Therapist was wearing the following PPE throughout entire session: surgicalmask and eye protection Patient was wearing a mask during therapy session: yes Family member/caregiver present was wearing a mask: yes Assessment Patient continues to demonstrate improvement with sit to stand transfers. She continues to need cuesand education on wheelchair propulsion and stand pivot transfers. Aurora was more fatigued in morningsession, however, this improved in the afternoon session. Kirk continues to be present and supportive. Patient will benefit from continued skilled physical therapy interventions for strength, neuromuscular re-education, and functional mobility to reduce caregiver burden on discharge. Barriers to Discharge Home: Current functional status, Safety concerns, Fall risk Barriers to Discharge Comments: Requires assist of two for mobilizing Comorbid Conditions: Other (Comment), Cerebrovascular accident (see [facility] for full medical history) Personal Factors: Balance impairment, Communication deficit, Hand dominance, History of falls, Needsassistive device, Safety awareness Discharge Therapy Needs - PT: Ongoing skilled physical therapy Level of Care Needed - PT: Assistance with transfers (Comment), Assistance with walking and moving around the home, Assistance with bed mobility, Cognitive assistance needed Equipment Recommended - PT: Other (Comment), Wheelchair (Shannan Stedy may be beneficial for transfers/etc.; patient only has standard manual wheelchair available, may benefit from ordering custom wheelchair) Functional Goals and Timeframes: PT Goal #1: Patient and spouse will be able to perform bed mobility using no hospital bed features with Min A x1 in order to increase independence in home. PT Goal #1 Date: 09/12/21 PT Goal #1 Status: Achieved PT Goal #2: Patient will be able to complete sit to/from stand transfer using Shannan Stedy or most appropriate gait device with Min A x1 in order to improve household mobility. PT Goal #2 Date: 09/12/21 PT Goal #2 Status: Advanced PT Goal #3: At discharge, patient will be able to perform stand pivot transfer using least restrictive device with Mod A x1 in order to improve household mobility. PT Goal #3 Date: 09/19/21 PT Goal #3 Status: Progressing PT Goal #4: Patient will demonstrate ability to maintain unsupported sitting at least 10 minutes to improve mobility and safety. PT Goal #4 Date: 09/19/21 PT Goal #4 Status: Achieved Progress: Progressing toward goals Plan Patient agrees with the plan of care and goals. Treatment Plan: PT Frequency: 6 times per week PT Amount: 2 visits per day PT Inpatient Duration : Until goals are met or hospital discharge Plan: Continue with current plan PT Plan Comments: Continue progression towards improved participation and safety with functional mobility. Progress towards mobility with Ax1 with caregiver training. Treatment interventions may include: Treatment/Interventions: Therapeutic exercise, Therapeutic functional activity, Neuromuscular re-education, Gait training, Self-care/home management, Orthosis [id number] [employer] Visit Trackin Time Spent with Patient Therapeutic Interventions Neuromuscular Re-Education (min): 26 min Therapeutic Activity (min): 16 min Therapeutic Exercise (min): 25 min Wheelchair Management (min): 23 min Time Tracking Total Timed Units (min): 90 min Total Treatment Time (min): 90 min PT Individual : 90 Minutes Denise Macedo P.T.A. Niyah aErly M.D. - 09/22/2021 7:15 AM CDT SUBJECTIVE Mrs. Aurora Langley is a 76-year-old, right-handed, [place]-speaking woman with past medical history of TBI with residual posttraumatic epilepsy, right spastic hemiparesis and expressive aphasia s/p SKY LINE YARDER shunt (1995) and lumbar spinal stenosis now status post L2-L5 lumbar laminectomy on 09/02/[address] Castellon. She is admitted to acute inpatient rehabilitation for lower extremity weakness and impairments in gait and ADL performance. Aurora and Kirk report this morning that she had quite a good day with therapy yesterday. They are trialing different knee braces to see if we might be able to achieve better support. They are quite pleased with her AFO and she is tolerating this well so far. She did have some fatigue in the left lower extremity at the end of her therapy sessions yesterday, but is feeling rested and ready to participate today. All questions and concerns were addressed to the best of my ability. OBJECTIVE Temperature: [36.7 ??C-36.8 ??C] 36.7 ??C Resp Rate: [14-16] 16 Blood Pressure: (104-121)/(49-57) 121/57 SpO2: [93 %-94 %] 93 % Weight: [64.8 kg] 64.8 kg BMI (Calculated): [21.9 kg/m??] 21.9 kg/m?? Physical Exam: General: Well-appearing woman seated up to this morning awaiting breakfast with her preferred dishesin front of her and engages well in conversation this morning. Seated comfortably, dressed and readyfor the day. HEENT: Normocephalic, atraumatic. Hearing grossly intact. Mucus membranes moist. No scleral icterus,conjunctiva clear. Cardiovascular: Hemodynamically stable. Respiratory: No dyspnea or use of accessory muscles. Respiratory rate as noted above in vital signs. Extremities: Right AFO in place with hinged knee cage brace in place. ASSESSMENT / PLAN Mrs. Aurora Langley is a 76-year-old, right-handed, [place]-speaking woman with past medical history of TBI with residual posttraumatic epilepsy, right spastic hemiparesis and expressive aphasia s/p SKY LINE YARDER shunt (1995) and lumbar spinal stenosis now status post L2-L5 lumbar laminectomy on 09/02/[address] Castellon. She is admitted to acute inpatient rehabilitation for lower extremity weakness and impairments in gait and ADL performance. Plan for todaySeptember 22: - Continue with comprehensive inpatient rehabilitation - Reach out to neurosurgery regarding any plans for outpatient follow up - Monitor for neurologic change including possible seizure activity. # Lumbar spinal stenosis with neurogenic claudication s/p L2-L5 laminectomy (09/02/21) # Progressive lower limb weakness # Gait unsteadiness # History of TBI resulting in spastic right hemiparesis, posttraumatic epilepsy and expressive aphasia - Comprehensive PT/OT, transition to 25/12 schedule - Restrictions: 15-20 pound lifting restriction and no heavy lifting, twisting or bending for 6 weeks post-op which will be October 14 - Pain control regimen includes: Tylenol 1000 mg every 6 hours as needed - Continue home seizure medication regimen: carbamazepine 500 mg twice daily levetiracetam 500 mg every morning, 250 mg with lunch, 500 mg every evening folic acid 1,000 mcg daily - Neurosurgery will coordinate outpatient follow-up if indicated - Physical Medicine & Rehabilitation follow-up with Dr. Ross arranged for October 21 - Neurology consult recommended continuing at home doses of carbamazepine and levetiracetam - Diazepam 5 mg as needed for seizure-like activity for lasting greater than 5 minutes (one eye closed, face-glossing over, right eyelid twitching, and NOT responding or following commands), can be given twice for a total of 10 mg if not responsive to first dose ?? # Hyperlipidemia - Continue home atorvastatin 10 mg every 48 hours - Continue home aspirin 81 mg daily ?? FULL CODE as discussed with patient. Diet: Regular DVT prophylaxis: Lovenox Bowel: bowel medication regimen as needed Bladder: currently voiding at her baseline Disposition: anticipate discharge September 25; goal to home with family support [place] [facility] [place] [phone] with any questions or concerns. ?? Niyah Early M.D. PM&R, PGY-2 Associated attestation - Teddy Avendano M.D., Ph.D. - 09/23/2021 4:24 PM CDT I saw and evaluated the patient, participating in the trinh portions of the service. I reviewed the resident/fellow???s note. I agree with the resident/fellow???s findings and plan. Ms. Langley is capable of participating in rehabilitation. She continues to progress towards functional independence in the area(s) of mobility, self-care, and communication and will benefit from ongoing intensive inpatient rehabilitation. I have met with the patient. She was sitting at the edge of her bed working with his AFO. She had nonew complaints and appears happy with her progress in therapy. She is now able to do a [id number] transfer with moderate assistance and to walk short distances with moderate-maximal assistance. Ms. Langley continues to do well. We will contrinue her program and work for a discharge homw with the care of her on Tuesday. Teddy Avendano M.D., Ph.D. PPE use information for possible contact monitoring: PPE used during visit: Provider was wearing a mask and eye protection throughout entire session. Patient was NOT wearing mask during entire session. Fanny Deal M.S., O.T. - 09/22/2021 6:58 AM CDT Occupational Therapy Rehabilitation [facility] Inpatient Progress Note SUBJECTIVE Patient's Name: Aurora Langley Reason for Referral: OT Evaluate and Treat: Inpatient rehabilitation Medical Diagnosis: 1. Laminectomy Lumbar Status Post 2. Lack Of Coordination 3. Decline Functional Status 4. Imbalance Non Orthopedic 5. Weakness General 6. Unsteadiness Gait Disorder Non Orthopedic 7. Stenosis Spinal Lumbar With Neurogenic Claudication 8. Stenosis Spinal History of Present Illness: Patient is s/p L2-L5 laminectomies for lumbar stenosis with gait instability by Dr. 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 Onset Date: 09/02/21 Patient/Caregiver Goals: Be able to complete cares with support of spouse to return home Patient Comments: Patient and agreeable to occupational therapy. Precautions Other Precautions: fall, history of TBI, expressive aphasia, no functional use of RUE, R inattention, uses R AFO and knee brace for ambulation Fall Risk (65 and older) Fall in the last 12 months: Yes Did you have an injury with the fall?: No Are you fearful of falling?: Yes OBJECTIVE Pain: No pain indicated. Vitals: Not indicated at this time Home Management/Self-Cares Toileting: Patient and return demonstrated good use of SarModaboundy x1 to perform toilet transfer. Patient able to perform emil-hygiene with setup but requires total for bottom cares from .Therapist used heat gun to modify commode bucket to include a posterior cut-out to improve caregiveraccessibility for bottom cares Therapeutic Activity Patient participated in mass repetition of low- and standing-pivot transfers from wheelchair<>bed with introduction of bed rail. Educated patient and on use of bed rail for appropriate use of patient's LUE to push off bed rather than lace around 's neck to reduce risk of injury. Required moderate assist x2 with cues for hand placement, foot placement, and sequencing for optimal safety. Patient tolerated 6 transfers total with brief rest breaks in between and with L<>R approaches. [place] setup for bed transfers are the following: (1) get into bed with low-pivot transfer towards the left with use of bed rail (2) get out of bed with low-pivot transfer towards the right with use of wall railing installed on bedroom wall Patient's stated he really appreciated the bed rail and will intend to purchase one for safedischarge. Patient/Family Education: functional transfers, fall prevention, bathroom equipment, levels of assist Education Provided to: Aurora Learner's Response: Able to demonstrate, Requires cueing and Requires continued education At the end of today's therapy session patient was left seated in a wheelchair with a pressure relieving cushion with an appropriate call light within reach. Patient's needs and questions addressed during today's session. Contact monitoring: PPE used during therapy: Therapist was wearing the following PPE throughout entire session: surgicalmask and eye protection Patient was wearing a mask during therapy session: donned for therapy unit Family member/caregiver present was wearing a mask: donned for therapy unitdonned for therapy unit Assessment Patient is progressing with functional skills needed to perform activities of daily living. Today, patient performed low-pivot transfers from wheelchair<>bed with moderate assistance and introduction of bed rail. Patient performs best with use of SaraStedy for toilet transfers, and patient and have benefitted from ongoing training for pivot transfers for improved safety in situations inwhich the SaraStedy cannot fit. ?? At baseline, patient received assistance from her but has experienced a decline in functional status s/p L2-L5 laminectomies. Patient currently requires varying levels of assist (from setup to total assistance) for self-cares due to BLE weakness (R>L), decreased activity tolerance, and impaired functional balance.Patient continues to benefit from skilled occupational therapy services to progress functional performance??and participation in daily tasks while??optimizing safety for both patient and .?? Barriers to Discharge Home: Current functional status, Safety concerns, Fall risk Barriers to Discharge Comments: Requires assist of two for mobilizing Comorbid Conditions: Other (Comment), Cerebrovascular accident (see [facility] for full medical history) Personal Factors: Balance impairment, Communication deficit, Hand dominance, History of falls, Needsassistive device, Safety awareness Discharge Therapy Needs - OT: Ongoing skilled occupational therapy Level of Care Needed - OT: Assistance with toileting, Assistance with toilet/shower transfers, Assistance with medication set up/administration, Assistance with showering/bathing, Assistance with dressing, Physical assistance needed, Assistance with meal preparation, Assistance with student financial services counselor, Assistance with transportation, Assistance with housekeeping, Assistance with shopping, Cognitiveassistance needed, Assistance with eating/feeding Functional Goals and Timeframes: OT Goal #1: STG: Pt will complete pivot commode transfer with minimal assistance x1 and use of adaptive equipment as needed. OT Goal #1 Status: Progressing OT Goal #2: STG: Patient will complete LB dressing with use of adaptive equipment with moderate assist of 1. OT Goal #2 Status: Progressing OT Goal #3: STG: Pt will be able to maintain standing with adaptive setup and moderate assistance toallow caregiver to safely assist with clothing management for self cares and to participate in grooming tasks. OT Goal #3 Status: Progressing OT Goal #4: LTG: Pt's spouse will verbalize understanding on safe mechanics and DME for patient to continue to participate with ADL cares. OT Goal #4 Status: Progressing Progress: Progressing toward goals Plan Patient agrees with the plan of care and goals. Treatment Plan: OT Frequency: 5 times per week OT Amount: 2 visits per day OT Inpatient Duration : Until goals are met or hospital discharge Plan: Continue with current plan Treatment interventions may include: Treatment Interventions: Therapeutic exercise, Therapeutic functional activity, Neuromuscular re-education, Self-care/home management, Manual therapy Therapeutic Interventions Home Management Training (min): 45 min Therapeutic Activity (min): 60 min Time Tracking Total Timed Units (min): 90 min Total Treatment Time (min): 90 min OT Individual: 90 Minutes ?? Fanny Deal M.S., O.T. Addendum 1: corrected therapy minutes to reflect afternoon session. Patient had become too fatigued to participate in full 30 minutes session in the morning and was short 15 minutes of OT. Medical teamaware and appointed a 15/ schedule by end of week. Addendum 2: Added home-management notes from object section. Denise Macedo P.TRico - 09/21/2021 1:15 PM CDT [facility] SUBJECTIVE Patient's Name: Aurora Langley Reason for Referral: PT Evaluate and Treat: Inpatient rehabilitation Medical Diagnosis: 1. Laminectomy Lumbar Status Post 2. Lack Of Coordination 3. Decline Functional Status 4. Imbalance Non Orthopedic 5. Weakness General 6. Unsteadiness Gait Disorder Non Orthopedic 7. Stenosis Spinal Lumbar With Neurogenic Claudication 8. Stenosis Spinal History of Present Illness: Patient is s/p L2-L5 laminectomies for lumbar stenosis with gait instability by Dr. 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 Onset Date: 09/02/21 Patient/Caregiver Goals: Be able to complete cares with support of spouse to return home Precautions Other Precautions: fall, history of TBI, expressive aphasia, no functional use of RUE, R inattention, uses R AFO and knee brace for ambulation OBJECTIVE ankle foot orthosis and knee brace donned prior to mobility and throughout all functional mobility Pain: Some discomfort when trying various knee braces Vitals: Not indicated at this time Bed Mobility - Sit to Supine # of Assistants: 1 Level of Assistance: Minimal assistance Device: None Cuing: Verbal, Tactile Comments: light assistance with positioning and R LE Sit to Stand Transfers # of Assistants: 1 Transfer Surface: Wheelchair Transfer Equipment: Gait belt, Single rail Level of Assistance: Minimal assistance, Moderate assistance Assessment/Delivery: Assessed, Instructed, Therapist assisted, Facilitated Comments: varies between minimal assistance to moderate assistance depending on fatigue Stand to Sit Transfers # of Assistants: 1 Transfer Surface: Wheelchair Transfer Equipment: Gait belt, Single rail Level of Assistance: Moderate assistance Assessment/Delivery: Assessed, Instructed, Therapist assisted, Facilitated Comments: Facilitation for slow controlled eccentric descent. facilitation for midline and stabilitythroughout Bed, Chair, Wheelchair Transfers # of Assistants: 1 Transfer Surface: Chair, Wheelchair, Bed (Therapy mat) Transfer Approach: To and from, Stand pivot, To the right, To the left Level of Assistance: Maximal assistance, Moderate assistance Assessment/Delivery: Assessed, Instructed, Educated, Therapist assisted, Facilitated Comments: Trialed pivot transfers simulating home set up. Able to acheive improved transfer when patient uses L UE on rail. Max cues for sequencing and patient understanding Gait Assessment/Training Distance (m): 6 m (1.5m x4) Surface: Even, Smooth/hard Device: No device, Gait belt, Single rail # of Assistants: 1 (2nd for wheelchair follow) Level of Assistance: Maximal assistance, Moderate assistance, Minimal assistance Quality/Pattern: Decreased heel strike, Decreased stance time R, Decreased base of support, Step-to,Scissoring Assessment of Gait: Patient demonstrated decreased heel contact and stance time on the R LE, with forward flexed posture and downward gaze. Demonstrates erratic foot placement and intermittent shuffling pattern. Relying heavily on the L UE on the rail requiring max cues to lift elbow off rail. Narrowed base of support with fatigue Cueing Provided: Verbal, Tactile Training/Intervention: Therapist faciltiating weight shifts and stability. Trialed different knee braces on R knee to improve stability and symmetry. Patient did best with hinged knee brace that was left in room Response: Patient fatiguing quickly and attempting to sit down very quickly without warning. Continuing to require cues for upright posture, hand placement on rail, and arm extension to elbow is not supported on rail. Supine Exercise - Side Addressed: Bilateral Supine Exercise: Heel slides, Short arc quads, Ankle pumps, Hip ABduction/ADduction Exercise Mode: Active assistance (comment) Supine Exercise Comments: Patient did not tolerate stretching this date Seated Exercise - Side Addressed: Bilateral Sitting Surface: Wheelchair Seated Exercise: Ankle pumps, Marching, Long arc quads, Hip abduction/adduction Exercise Mode: Active motion against gravity Standing Exercise - Side Addressed: Bilateral Standing Exercise: Marching Exercise Mode: Active motion against gravity, With unilateral upper extremity support Standing Exercise Comments: support on bed rail Patient/Family Education: Wheelchair needs and rational, Shannan Stedy transfers and sit to/from stand transfers with spouse, wheelchair propulsion. Education Provided to: Sal Learner's Response: Able to demonstrate and Requires continued education At the end of today's therapy session patient was left in bed with an appropriate call light within reach. Patient's needs and questions addressed during today's session. Contact monitoring: PPE used during therapy: Therapist was wearing the following PPE throughout entire session: surgicalmask and eye protection Patient was wearing a mask during therapy session: yes Family member/caregiver present was wearing a mask: yes Additional Staff Present During Session: OT for stand pivot transfers; Santiago Mayo PT for [employer] 6th treatment visit Assessment Patient continues to demonstrate improvement with transfers. After troubleshooting optimal transfersimitating home set up to transfer to/from wheelchair and bed, patient was able to provide increased assistance with transfer, however, remains at maximal assistance for most stand pivot transfers. Sit to stand continues to improve and is consistently at minimal assistance then moderate assistance whenfatigued. Trialed various knee braces to improve ambulation and knee stability. Optimal brace was neoprene hinged brace with adjusting back straps. Patient does better with brace above clothes for skin comfort. On one walk at kemi rail, patient was minimal assistance but continues to require maximal assistance for cues to stand tall and use only hand on rail instead of elbow. Performed R UE passive range of motion in bed at end of session to increase mobility. Patient will benefit from continued skilled physical therapy interventions for strength and functional mobility to reduce caregiver burden. Barriers to Discharge Home: Current functional status, Safety concerns, Fall risk Barriers to Discharge Comments: Requires assist of two for mobilizing Comorbid Conditions: Other (Comment), Cerebrovascular accident (see [facility] for full medical history) Personal Factors: Balance impairment, Communication deficit, Hand dominance, History of falls, Needsassistive device, Safety awareness Discharge Therapy Needs - PT: Ongoing skilled physical therapy Level of Care Needed - PT: Assistance with transfers (Comment), Assistance with walking and moving around the home, Assistance with bed mobility, Cognitive assistance needed Equipment Recommended - PT: Other (Comment), Wheelchair (Shannan Stedy may be beneficial for transfers/etc.; patient only has standard manual wheelchair available, may benefit from ordering custom wheelchair) Functional Goals and Timeframes: PT Goal #1: Patient and spouse will be able to perform bed mobility using no hospital bed features with Min A x1 in order to increase independence in home. PT Goal #1 Date: 09/12/21 PT Goal #1 Status: Achieved PT Goal #2: Patient will be able to complete sit to/from stand transfer using Shannan Stedy or most appropriate gait device with Min A x1 in order to improve household mobility. PT Goal #2 Date: 09/12/21 PT Goal #2 Status: Advanced PT Goal #3: At discharge, patient will be able to perform stand pivot transfer using least restrictive device with Mod A x1 in order to improve household mobility. PT Goal #3 Date: 09/19/21 PT Goal #3 Status: Progressing PT Goal #4: Patient will demonstrate ability to maintain unsupported sitting at least 10 minutes to improve mobility and safety. PT Goal #4 Date: 09/19/21 PT Goal #4 Status: Achieved Progress: Progressing toward goals Plan Patient agrees with the plan of care and goals. Treatment Plan: PT Frequency: 6 times per week PT Amount: 2 visits per day PT Inpatient Duration : Until goals are met or hospital discharge Plan: Continue with current plan PT Plan Comments: Continue progression towards improved participation and safety with functional mobility. Progress towards mobility with Ax1 with caregiver training. Treatment interventions may include: Treatment/Interventions: Therapeutic exercise, Therapeutic functional activity, Neuromuscular re-education, Gait training, Self-care/home management, Orthosis [id number] [employer] Visit Trackin Time Spent with Patient Therapeutic Interventions Therapeutic Activity (min): 53 min Therapeutic Exercise (min): 38 min Time Tracking Total Timed Units (min): 91 min Total Treatment Time (min): 91 min PT Individual : 91 Minutes Denise Macedo P.T.A. Associated attestation - Santiago Mayo P.T. - 09/21/2021 5:14 PM CDT This therapist has reviewed all documentation and supervised today's session. This therapist agrees with the plan of care developed in collaboration with the patient. Teddy Avendano M.D., Ph.D. - 09/21/2021 11:52 AM CDT Physical Medicine and Rehabilitation Interdisciplinary Team Conference [facility] 09/21/2021 11:52 AM CDT Patient Name: Aurora Langley Admit Date/Time: 09/04/2021 3:09 PM Date of : 1945 Sex: Female Room/Bed: 215/215-P Etiologic Diagnosis: Laminectomy Lumbar Status Post Impairment Group: Orthopaedic Disorders Payor: Payor: MEDICARE / Plan: MEDICARE A AND B / Product Type: Medicare / Anticipated Discharge Date: 09/25/21 Rehab Team Conference Participation Physician Talent Buyer: Dr. Teddy Avendano Senior Resident Present: Dr. Niyah Augustin Nursing Talent Buyer: Sam Barnes RN CM/SW Talent Buyer: MICAH Benjamin CM/SW Second Talent Buyer: VICK Borrero PT Talent Buyer: Chuck Bermudez PT OT Talent Buyer: Fanny Deal OT Other (Discipline and Name): . OT Goal #1: STG: Pt will complete pivot commode transfer with minimal assistance x1 and use of adaptive equipment as needed. OT Goal #2: STG: Patient will complete LB dressing with use of adaptive equipment with moderate assist of 1. OT Goal #3: STG: Pt will be able to maintain standing with adaptive setup and moderate assistance toallow caregiver to safely assist with clothing management for self cares and to participate in grooming tasks. OT Goal #4: LTG: Pt's spouse will verbalize understanding on safe mechanics and DME for patient to continue to participate with ADL cares. PT Goal #1: Patient and spouse will be able to perform bed mobility using no hospital bed features with Min A x1 in order to increase independence in home. PT Goal #2: Patient will be able to complete sit to/from stand transfer using Shannan Stedy or most appropriate gait device with Min A x1 in order to improve household mobility. PT Goal #3: At discharge, patient will be able to perform stand pivot transfer using least restrictive device with Mod A x1 in order to improve household mobility. PT Goal #4: Patient will demonstrate ability to maintain unsupported sitting at least 10 minutes to improve mobility and safety. Progress Toward Goals Additional Team Conference Comments (RN): New schedule for therapy is working well, using CL when spouse not present, no pain issues,continues to use Shannan Stedy for TX, loose BMs continue but is continent, continues to have urinary incontinence at times Additional Team Conference Comments (PT): Aurora continues to demonstrate steady progress, currently requires delfina to supervision for bed mobility, mod a x1 with Shannan Stedy for sit to/from stand from low surfaces and contact guard assistance from high surfaces. does well with Shannan Stedy transfers. She requires MaxA x1 for pivot transfers and is able to take steps at the kemi rail with ModA to MaxA with a wheelchair follow. is present, supportive, and actively participates in her care.Custom right solid ankle foot orthosis was obtained and the wheelchair process has been started. Education Provided (PT): Wheelchair needs and rational, Shannan Stedy transfers and sit to/from stand transfers with spouse, wheelchair propulsion. Additional Team Conference Comments (OT): Patient and are progressing with practice of low/stand pivot transfers with maximum assistance and use of grab bars to simulate home setup. Patient's functional participation is limited by decreased activity tolerance and BLE weakness. Patient is well supported by and will benefit from ongoing intensive therapy for optimal safety at home. reports he may be able to get assistance from [facility] for respite care as needed. Education Provided (OT): Ongoing education for patient and caregiver body mechanics to reduce risk of injury and falls. Discharge Equipment Recommended Adaptive Equipment - OT: Other (Comment) (continue to assess) Equipment Recommended - PT: Other (Comment), Wheelchair (Shannan Stedy may be beneficial for transfers/etc.; patient only has standard manual wheelchair available, may benefit from ordering custom wheelchair) Equipment Vendor - PT: pending ongoing assessment, Shannan Stedy may be beneficial for transfers/etc. Patient / Family Goals The goals from interdisciplinary conference were discussed with patient, family. Discharge Planning Discharge Planning (Team Conference) Barriers To Discharge: Ability to acquire knowledge, Caregiver training/education, Equipment Strengths: Previous rehab experience, Support of immediate family Anticipated Discharge Destination: Home or Self Care Assistance Recommended after Discharge: 24 hour physical assistance Discharged Living With: Family and or relatives Support Systems: Spouse Recommended Discharge Services: Physical Therapy, Occupational Therapy, PM&R Physician Follow-up, Primary Care Physician Follow-up Does the patient need discharge transport arranged?: No Physician Summary The team discussed the discharge date, destination and assistance required after discharge, and reviewed the written plan of care. The discharge date was changed to 09/25/21 due to: continuing to assess ongoing OT equipment, making progress with therapy The patient's progress towards rehabilitation goals and associated barriers to discharge were discussed related to activities of daily living, bladder management, bowel management, discharge planning, education, equipment, follow- up after discharge, mobility, medical issues, psychosocial issues, safety, transfers. No changes to goals needed.. Manuel Hughes R.Ph. - 09/21/2021 10:47 AM CDT Images from the original note were not included. Pharmacist Progress Note ?? Reason for admission: s/p L2-5 lami on 09/02; transfer to rehab 09/04 PMH: Epilepsy, TBI, HLD ?? OBJECTIVE Home medications: ?? Held: Supplements ?? Changed: None ?? Monitoring: CBC with Hgb 11 (stable) on 09/10; BMP wnl, cbmz 13.3 and keppra 9.4 on 09/05. ? ASSESSMENT / PLAN 1. TBI with epilepsy: home Carbatrol 500 mg bid and Keppra 500/250/500 mg tid. ?? Last Keppra level slightly low (typical range 10-40 but does not correlate well to efficacy) and total carbamazepine level 13.3 on 09/05 (slightly above goal range of 4-12). Neuro recommended to continue current doses of Carbatrol and Keppra. 2. HLD/CV: Home aspirin 81 mg/d and Lipitor 10 mg q48h 3. GI: Last BM 09/20 on scheduled miralax/senna 4. VTE ppx: enoxaparin 40 mg/d Manuel Hughes, Vivek.Ph. ?? Fanny Deal M.S., O.T. - 09/21/2021 8:47 AM CDT Occupational Therapy Rehabilitation [facility] Inpatient Progress Note SUBJECTIVE Patient's Name: Aurora Langley Reason for Referral: OT Evaluate and Treat: Inpatient rehabilitation Medical Diagnosis: 1. Laminectomy Lumbar Status Post 2. Lack Of Coordination 3. Decline Functional Status 4. Imbalance Non Orthopedic 5. Weakness General 6. Unsteadiness Gait Disorder Non Orthopedic 7. Stenosis Spinal Lumbar With Neurogenic Claudication 8. Stenosis Spinal History of Present Illness: Patient is s/p L2-L5 laminectomies for lumbar stenosis with gait instability by Dr. 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 Onset Date: 09/02/21 Patient/Caregiver Goals: Be able to complete cares with support of spouse to return home Patient Comments: Patient and agreeable to occupational therapy. Patient reports they had a very succesful community outing, during which he successfully transferred patient to<>from public toilet with grab bars. Patient and were very pleased with her progress and are grateful for a few more days of therapy to get even stronger and reduce caregiver burden. Precautions Other Precautions: fall, history of TBI, expressive aphasia, no functional use of RUE, R inattention, uses R AFO and knee brace for ambulation Fall Risk (65 and older) Fall in the last 12 months: Yes Did you have an injury with the fall?: No Are you fearful of falling?: Yes OBJECTIVE Pain: No pain indicated at this time. Vitals: Not indicated at this time Therapeutic Activity and Home Management Training Wheelchair transfers: Continued family training with patient and to progress functional bed<>wheelchair pivot transfers. Instruction provided for R knee blocking, hand placement, and sequencing for improved safety and reduced risk of falls. Patient requires minimum assistance for sit>stands and maximum to stand>sit due to BLE weakness and varying heights of transfer surfaces. However, patient is progressing well and reports he was able to perform pivot transfers in 2 public restrooms of the hospital over the weekend with use of grab bars and moderate assistance. Toilet transfers: patient performed toilet transfer with SaraStedy and minimum assistance x1 for sit<>stands as compared to moderate assist last week. Therapist present for safety. Patient able to perform emil-hygiene with setup assistance of tissues instead of toilet paper. Bath Transfers: Educated, instructed, and demonstrated use of tub-transfer bench for bath transfers.Patient's reports that it has worked well at home to tilt the wheelchair in order to position front casters over shower threshold. From this position, patient can use grab bars for stand-pivot transfer onto shower chair. He was receptive to trial of tub transfer bench with use of SaraStedy to reduce caregiver burden. Patient and return-demonstrated understanding, but second person wasneeded due to initial lack of back support when patient first sat on bench. Patient indicated discomfort and anxious response to trial of this new method. Patient's thanked therapist but indicated that the setup would not be possible with the existing shower doors. Therapist emphasized that continued practice of stand-pivot transfers with use of grab bars will be a transferable skill to the shower. Patient and agreed. Patient/Family Education: Per 's request, educated patient and on resources for acquiring a high-wall plate, Dycem, and new commode with a dropped bucket for easier caregiver access during bottom cares. Ongoing education for patient and caregiver body mechanics to reduce risk of injury and falls. Education Provided to: Gitta and Learner's Response: Requires cueing and Requires continued education At the end of today's therapy session patient was left seated in a wheelchair with a pressure relieving cushion with an appropriate call light within reach. Patient's needs and questions addressed during today's session. Contact monitoring: PPE used during therapy: Therapist was wearing the following PPE throughout entire session: surgicalmask and eye protection Patient was wearing a mask during therapy session: no Family member/caregiver present was wearing a mask: no Assessment Patient is progressing with functional skills needed to perform activities of daily living. Today, demonstrated improved mobility by progressing from moderate to minimum assistance with sit<>stands. Patient performs best with use of SaraStedy for toilet transfers, and patient and will benefit from ongoing training for situations in which the SaraStedy cannot fit, such as in patient's bedroom. ?? Patient is currently dependent with her all of her self-cares due to BLE weakness (R>L), decreased activity tolerance, and impaired functional balance.??Patient continues to benefit from skilled occupational therapy services to progress functional performance??and participation in daily tasks while??optimizing safety for both patient and . Barriers to Discharge Home: Current functional status, Safety concerns, Fall risk Barriers to Discharge Comments: Requires assist of two for mobilizing Comorbid Conditions: Other (Comment), Cerebrovascular accident (see [facility] for full medical history) Personal Factors: Balance impairment, Communication deficit, Hand dominance, History of falls, Needsassistive device, Safety awareness Discharge Therapy Needs - OT: Ongoing skilled occupational therapy Level of Care Needed - OT: Assistance with toileting, Assistance with toilet/shower transfers, Assistance with medication set up/administration, Assistance with showering/bathing, Assistance with dressing, Physical assistance needed, Assistance with meal preparation, Assistance with student financial services counselor, Assistance with transportation, Assistance with housekeeping, Assistance with shopping, Cognitiveassistance needed, Assistance with eating/feeding Functional Goals and Timeframes: OT Goal #1: STG: Pt will complete pivot commode transfer with minimal assistance x1 and use of adaptive equipment as needed. OT Goal #1 Status: Modified OT Goal #2: STG: Patient will complete LB dressing with use of adaptive equipment with moderate assist of 1. OT Goal #2 Status: Progressing OT Goal #3: STG: Pt will be able to maintain standing with adaptive setup and moderate assistance toallow caregiver to safely assist with clothing management for self cares and to participate in grooming tasks. OT Goal #3 Status: Progressing OT Goal #4: LTG: Pt's spouse will verbalize understanding on safe mechanics and DME for patient to continue to participate with ADL cares. OT Goal #4 Status: Progressing Progress: Progressing toward goals Plan Patient agrees with the plan of care and goals. Treatment Plan: OT Frequency: 5 times per week OT Amount: 2 visits per day OT Inpatient Duration : Until goals are met or hospital discharge Plan: Continue with current plan Treatment interventions may include: Treatment Interventions: Therapeutic exercise, Therapeutic functional activity, Neuromuscular re-education, Self-care/home management, Manual therapy Therapeutic Interventions Home Management Training (min): 30 min Therapeutic Activity (min): 60 min Time Tracking Total Timed Units (min): 90 min Total Treatment Time (min): 90 min OT Individual: 90 Minutes Fanny Deal M.S., O.T. Niyah Early M.D. - 09/21/2021 7:11 AM CDT SUBJECTIVE Mrs. Aurora Langley is a 76-year-old, right-handed, [place]-speaking woman with past medical history of TBI with residual posttraumatic epilepsy, right spastic hemiparesis and expressive aphasia s/p [employer] shunt (1995) and lumbar spinal stenosis now status post L2-L5 lumbar laminectomy on 09/02/[address] Castellon. She is admitted to acute inpatient rehabilitation for lower extremity weakness and impairments in gait and ADL performance. I again had a further conversation with Aurora and Kirk yesterday afternoon regarding her bowel habits and concerns that had been voiced the prior day. Prior to her hospitalization, she was quite constipated and bowel movements were more infrequent, usually small, and hard, requiring some effort to pass. Since being in the hospital and utilizing a bowel program, stools are much softer and less effortful. At times, Aurora has not recognized that she has had a bowel movement when they are particularly loose. She assures Kirk and Lisset that there are not any sensory changes around her bottom and that she can tell when she is receiving assistance with being cleaned up after using the commode. Additionally, she has not noticed any changes in her volitional control over having a bowel movement, affirming that she can squeeze her bottom without difficulty. This morning, they described to me there trip outside yesterday afternoon to enjoy the weather and share a cappuccino at [employer]. While out, they had to stop at a bathroom for Aurora and were able to complete this transfer much easier than was the case prior to her surgical intervention. They were both very pleased with this progress. All questions and concerns were addressed to the best of my ability. OBJECTIVE Temperature: [36.6 ??C-37.1 ??C] 36.6 ??C Resp Rate: [16] 16 Blood Pressure: (108-133)/(54-73) 117/58 SpO2: [94 %-95 %] 95 % Weight: [65.2 kg] 65.2 kg BMI (Calculated): [22 kg/m??] 22 kg/m?? Physical Exam: General: Well-appearing woman seated up to this morning awaiting breakfast and engages well in conversation this morning. Seated comfortably, dressed and ready for the day. HEENT: Normocephalic, atraumatic. Hearing grossly intact. Mucus membranes moist. No scleral icterus,conjunctiva clear. Cardiovascular: Hemodynamically stable Respiratory: No dyspnea or use of accessory muscles. Respiratory rate as noted above in vital signs. Extremities: No lower extremity edema appreciated. Observed sit to stand transfer to [facility] with significant improvement in Aurora's ability to bear weight through her lower extremities and pull herself to standing to accommodate the transfer. ASSESSMENT / PLAN Mrs. Aurora Langley is a 76-year-old, right-handed, [place]-speaking woman with past medical history of TBI with residual posttraumatic epilepsy, right spastic hemiparesis and expressive aphasia s/p SKY LINE YARDER shunt (1995) and lumbar spinal stenosis now status post L2-L5 lumbar laminectomy on 09/02/[address] Castellon. She is admitted to acute inpatient rehabilitation for lower extremity weakness and impairments in gait and ADL performance. Plan for today, September 21: - Daily fiber supplement for loose stools - ITC today with team agreement to extend hospital stay until September 25 - Monitor for neurologic change including possible seizure activity. 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 Ross arranged for October 21 - Neurology consult recommended continuing at home doses of carbamazepine and levetiracetam - Diazepam 5 mg as needed for seizure-like activity for lasting greater than 5 minutes (one eye closed, face-glossing over, right eyelid twitching, and NOT responding or following commands), can be given twice for a total of 10 mg if not responsive to first dose ?? # Hyperlipidemia - Continue home atorvastatin 10 mg every 48 hours - Continue home aspirin 81 mg daily ?? FULL CODE as discussed with patient. Diet: Regular DVT prophylaxis: Lovenox Bowel: bowel medication regimen as needed Bladder: currently voiding at her baseline Disposition: anticipate discharge September 25; goal to home with family support [place] [facility] [place] [place] [phone] with any questions or concerns. ?? Niyah Early M.D. PM&R, PGY-2 Associated attestation - Teddy Avendano M.D., Ph.D. - 09/21/2021 3:59 PM CDT I saw and evaluated the patient, participating in the trinh portions of the service. I reviewed the resident/fellow???s note. I agree with the resident/fellow???s findings and plan. Ms. Langley is capable of participating in rehabilitation. She continues to progress towards functional independence in the area(s) of mobility, self-care, and communication and will benefit from ongoing intensive inpatient rehabilitation. I have met with the patient, observed her briefly in therapy, and participated in her plan of care conference. Ms. Langley was accompanied by her , he voiced happiness with her improvement and was reassured by the fact t that they had been able to to a safe bathroom transfer over the weekend while off the floor. Issues over the weekend reviewed with Dr. Early and I agree with her inference that Ms. Langley may be benefitting from a better bowel program than she had been on at home. Gait transfers are still limited. She is now able to do a [id number] transfer with minimal assistance and to walk very short distances (3 m) with maximal assistance. BP 117/58 (BP Location: Left arm;Upper) Pulse 71 Temp 36.6 ??C (Oral) Resp 16 Ht 172.2 cm Wt 65.2 kg SpO2 95% BMI 21.99 kg/m?? No results found for this or any previous visit (from the past 24 hour(s)). Intake/Output Summary (Last 24 hours) at 09/21/2021 1550 Last data filed at 09/21/2021 1200 Gross per 24 hour Intake 1390 ml Output 400 ml Net 990 ml Wt 65.2 kg initial weight 67.6 kg Ms. Langley continues to do well. We will follow her neurological status but I suspect that it is stable. We will also work for a discharge home to the care of her on Tuesday with Mr. Langley trying to arrange for respite care via the [facility] program. I will complete a 7 element form today to support the application for a K0005 wheelchair. Teddy Avendano M.D., Ph.D. PPE use information for possible contact monitoring: PPE used during visit: Provider was wearing a mask and eye protection throughout entire session. Patient was NOT wearing mask during entire session. Niyah Early M.D. - 09/20/2021 7:30 AM CDT SUBJECTIVE Mrs. Aurora Langley is a 76-year-old, right-handed, [place]-speaking woman with past medical history of TBI with residual posttraumatic epilepsy, right spastic hemiparesis and expressive aphasia s/p SKY LINE YARDER shunt (1995) and lumbar spinal stenosis now status post L2-L5 lumbar laminectomy on 09/02/[address] Castellon. She is admitted to acute inpatient rehabilitation for lower extremity weakness and impairments in gait and ADL performance. Mrs. Langley was seen taking her medications prior to beginning breakfast this morning. Yogi was present and attentive as usual. Planning for a shower with nursing and perhaps a trip outside for some fresh air later today. Did have multiple loose stools yesterday so have adjusted her bowel regimen further. All questions and concerns were addressed to the best of my ability. OBJECTIVE Temperature: [36.9 ??C-37.2 ??C] 36.9 ??C Resp Rate: [16] 16 Blood Pressure: (117-136)/(62-80) 117/62 SpO2: [94 %-96 %] 94 % Physical Exam: General: Well-appearing woman seated up to chair eating breakfast. Seated comfortably, dressed and ready for the day. HEENT: Normocephalic, atraumatic. Hearing grossly intact. Mucus membranes moist. No scleral icterus,conjunctiva clear. Cardiovascular: Hemodynamically stable Respiratory: No dyspnea or use of accessory muscles. Respiratory rate as noted above in vital signs. Extremities: No lower extremity edema appreciated. ASSESSMENT / PLAN Mrs. Aurora Langley is a 76-year-old, right-handed, [place]-speaking woman with past medical history of TBI with residual posttraumatic epilepsy, right spastic hemiparesis and expressive aphasia s/p SKY LINE YARDER shunt (1995) and lumbar spinal stenosis now status post L2-L5 lumbar laminectomy on 09/02/[address] Castellon. She is admitted to acute inpatient rehabilitation for lower extremity weakness and impairments in gait and ADL performance. Plan for Today (09/20/21): - Continue with multidisciplinary therapy - Plan for ITC on Tuesday to assess possible adjustment to dismissal date - monitor for neurologic change including possible seizure activity. 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 Ross arranged for October 21 - Neurology consult recommended continuing at home doses of carbamazepine and levetiracetam - Diazepam 5 mg as needed for seizure-like activity for lasting greater than 5 minutes (one eye closed, face-glossing over, right eyelid twitching, and NOT responding or following commands), can be given twice for a total of 10 mg if not responsive to first dose ?? # Hyperlipidemia - Continue home atorvastatin 10 mg every 48 hours - Continue home aspirin 81 mg daily ?? FULL CODE as discussed with patient. Diet: Regular DVT prophylaxis: Lovenox Bowel: bowel medication regimen as needed Bladder: currently voiding at her baseline Disposition: anticipate discharge September 22; goal to home with family support [place] [facility] [place] [phone] with any questions or concerns. ?? Niyah Early M.D. PM&R, PGY-2 Associated attestation - Merrick Mattson M.D. - 09/21/2021 7:41 AM CDT I saw and evaluated the patient, participating in the trinh portions of the service. I reviewed the resident/fellow???s note. I agree with the resident/fellow???s findings and plan. Ms. Langley is capable of participating in rehabilitation. She continues to progress towards functional independence in the area(s) of mobility and self- care and will benefit from ongoing intensive inpatient rehabilitation. Ms. Langley did not have any new medical rehab issues today. Merrick Mattson M.D. Diana Christopher MDIV - 09/19/2021 4:12 PM CDT Encounter: Follow-Up Situation: The designer writer engaged Mr. Langley in the hallway and was invited for a visit. Mrs. Langleywas seated in her recliner, alert and warmly welcoming. Family: Spouse, Kirk, was present Carole Tradition: Yarsanism Spiritual Care: The designer writer shared the schedule. Prayer was welcomed and provided. Mrs. Langley anticipates discharge on September 22. Plan: Will remain available for spiritual care as needed or requested. Chaplains can be contacted bypaging [phone] ([place]oro[place]rianism) or [phone] ([place]). Angela Mejia PNasima, D.P.T. - 09/19/2021 3:21 PM CDT Physical Therapy Rehabilitation [facility] Inpatient Treatment Therapy session performed at 2:30 PM SUBJECTIVE Patient's Name: Aurora Langley Reason for Referral: PT Evaluate and Treat: Inpatient rehabilitation Medical Diagnosis: 1. Laminectomy Lumbar Status Post 2. Lack Of Coordination 3. Decline Functional Status 4. Imbalance Non Orthopedic 5. Weakness General 6. Unsteadiness Gait Disorder Non Orthopedic History of Present Illness: Patient is s/p L2-L5 laminectomies for lumbar stenosis with gait instability by Dr. 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 Onset Date: 09/02/21 Patient/Caregiver Goals: Be able to complete cares with support of spouse to return home Patient Comments: Patient was seated in the chair when the therapist arrived. Agreeable to therapy, denies pain Precautions Other Precautions: fall, history of TBI, expressive aphasia, no functional use of RUE, R inattention, uses R AFO and knee brace for ambulation OBJECTIVE Pain: 0/10 Bed Mobility - Sit to Supine # of Assistants: 1 Level of Assistance: Moderate assistance Device: None Cuing: Verbal, Tactile Comments: verbal cues for sequencing; assistance at lower extremities to transition into the bed Sit to Stand Transfers # of Assistants: 1 Transfer Surface: Wheelchair Transfer Equipment: Gait belt, Single rail, Sit to stand machine Level of Assistance: Minimal assistance, Moderate assistance Assessment/Delivery: Assessed, Instructed, Therapist assisted, Facilitated Comments: verbal cues for set-up and sequencing; Multiple repetitions performed at the kemi-rail, therapist facilitating anterior weight shift, symmetry with weight bearing and posture. Patient tends to favor leaning toward her left side Stand to Sit Transfers # of Assistants: 1 Transfer Surface: Wheelchair Transfer Equipment: Gait belt, Single rail Level of Assistance: Moderate assistance Assessment/Delivery: Assessed, Instructed, Therapist assisted, Facilitated Comments: Facilitation for slow controlled eccentric descent. facilitation for midline and stabilitythroughout Bed, Chair, Wheelchair Transfers # of Assistants: 1 Transfer Surface: Chair, Wheelchair (Therapy mat) Transfer Approach: To and from Transfer Equipment: Sit to stand machine Level of Assistance: Minimal assistance Assessment/Delivery: Assessed, Instructed, Educated, Therapist assisted, Facilitated Comments: verbal cues for set-up. Therapist providing Delfina for stability, balance and assessment Gait Assessment/Training Distance (m): 3 m (2 x 3meters) Surface: Even Device: No device, Gait belt, Single rail # of Assistants: 1 (2nd for wheelchair follow) Level of Assistance: Maximal assistance Quality/Pattern: Decreased heel strike, Decreased stance time R, Decreased base of support, Step-to,Scissoring Assessment of Gait: Patient demonstrated decreased heel contact and stance time on the R LE, with forward flexed posture and downward gaze. Demonstrates erratic foot placement and intermittent shuffling pattern. Relying heavily on the L UE on the rail. Narrowed base of support with fatigue Cueing Provided: Verbal, Tactile Training/Intervention: Therapist faciltiating right foot placement and stance stability with cues athip girdle and lower abdominal for optimal stability and extension with R knee blocking. Facilitating weight shifts for improved symmetry Response: Patient fatiguing quickly and attempting to sit down very quickly without warning. Continuing to require cues for right stance stability Patient/Family Education: safety with mobility;use of call light for assistance Education Provided to: Aurora Learner's Response: Requires cueing and Requires continued education At the end of today's therapy session patient was left in bed with an appropriate call light within reach. Patient's needs and questions addressed during today's session. Contact monitoring: PPE used during therapy: Therapist was wearing the following PPE throughout entire session: surgicalmask and eye protection Patient was wearing a mask during therapy session: yes Family member/caregiver present was wearing a mask: yes Assessment The patient continues to demonstrate right sided weakness, impaired balance and sense of midline, increased tone and incoordination. She is currently performing sit<>stand transitions at the railwith moderate assistance and gait with maximal assistance. She fatigues quickly and demonstrates decreased safety awareness, as noted by trying to sit down quickly during gait. She benefits from simpleverbal cues, repetition, and demonstration of activities. She will continue to benefit from ongoing skilled physical therapy services to progress functional mobility and independence, promote neuro-recovery, provide education to patient and caregivers and maximize safety. Barriers to Discharge Home: Current functional status, Safety concerns, Fall risk Barriers to Discharge Comments: Requires assist of two for mobilizing Comorbid Conditions: Other (Comment), Cerebrovascular accident (see [facility] for full medical history) Personal Factors: Balance impairment, Communication deficit, Hand dominance, History of falls, Needsassistive device, Safety awareness Discharge Therapy Needs - PT: Ongoing skilled physical therapy Level of Care Needed - PT: Assistance with transfers (Comment), Assistance with walking and moving around the home, Assistance with bed mobility, Cognitive assistance needed Equipment Recommended - PT: Other (Comment), Wheelchair (Shannan Stedy may be beneficial for transfers/etc.; patient only has standard manual wheelchair available, may benefit from ordering custom wheelchair) Functional Goals and Timeframes: PT Goal #1: Patient and spouse will be able to perform bed mobility using no hospital bed features with Min A x1 in order to increase independence in home. PT Goal #1 Date: 09/12/21 PT Goal #1 Status: Achieved PT Goal #2: Patient will be able to complete sit to/from stand transfer using Shannan Stedy or most appropriate gait device with Min A x1 in order to improve household mobility. PT Goal #2 Date: 09/12/21 PT Goal #2 Status: Advanced PT Goal #3: At discharge, patient will be able to perform stand pivot transfer using least restrictive device with Mod A x1 in order to improve household mobility. PT Goal #3 Date: 09/19/21 PT Goal #3 Status: Progressing PT Goal #4: Patient will demonstrate ability to maintain unsupported sitting at least 10 minutes to improve mobility and safety. PT Goal #4 Date: 09/19/21 PT Goal #4 Status: Achieved Progress: Progressing toward goals Plan Patient agrees with the plan of care and goals. Treatment Plan: PT Frequency: 6 times per week PT Amount: 2 visits per day PT Inpatient Duration : Until goals are met or hospital discharge Plan: Continue with current plan PT Plan Comments: Continue progression towards improved participation and safety with functional mobility. Progress towards mobility with Ax1 with caregiver training. Treatment interventions may include: Treatment/Interventions: Therapeutic exercise, Therapeutic functional activity, Neuromuscular re-education, Gait training, Self-care/home management, Orthosis [id number] SUPER[employer]OR [employer]ATING Visit Trackin Time Spent with Patient Therapeutic Interventions Gait Training (min): 15 min Therapeutic Activity (min): 25 min Time Tracking Total Timed Units (min): 40 min Total Treatment Time (min): 40 min PT Individual : 40 Minutes Angela Mejia P.T., D.P.T. Yun Barboza O.T. - 09/19/2021 12:49 PM CDT Occupational Therapy Rehabilitation [facility] Inpatient Progress Note SUBJECTIVE Patient's Name: Aurora Langley Reason for Referral: OT Evaluate and Treat: Inpatient rehabilitation Medical Diagnosis: 1. Laminectomy Lumbar Status Post 2. Lack Of Coordination 3. Decline Functional Status 4. Imbalance Non Orthopedic 5. Weakness General 6. Unsteadiness Gait Disorder Non Orthopedic History of Present Illness: Patient is s/p L2-L5 laminectomies for lumbar stenosis with gait instability by Dr. 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 Onset Date: 09/02/21 Patient/Caregiver Goals: Be able to complete cares with support of spouse to return home Patient Comments: Patient willing and motivated to participate, presented pleasant and cooperative Precautions Other Precautions: fall, history of TBI, expressive aphasia, no functional use of RUE, R inattention, uses R AFO and knee brace for ambulation OBJECTIVE Pain: no pain reported during extent of treatment session Toileting Toileting Location: Commode chair Toileting Delivery: Assessed Toileting Level of Assistance: Moderate assistance, Maximal assistance Toileting Comments: Set up assist for toileting hygiene, moderate to maximal assist to support standing to pull up pants up/down over hips. Sit to Stand Transfers # of Assistants: 1 Transfer Surface: Chair Transfer Equipment: Gait belt, Bed rail Level of Assistance: Minimal assistance Assessment/Delivery: Assessed, Instructed, Therapist assisted, Facilitated Comments: Completed multiple sit to stand repetitions transitioning from sitting in bedside chair tostanding up at bed rail. Completed 5, then minutes later, 7 more repetitions. Cues given for hand placement, posture and weight bearing/weight shifting. Toilet Transfers # of Assistants: 1 Transfer Surface: Commode Transfer Approach: To and from, Stand pivot Transfer Equipment: (Used bed rail to simulate hand rail at home) Level of Assistance: Maximal assistance Assessment/Delivery: Assessed, Instructed, Educated, Therapist assisted, Facilitated Toilet Transfers Comments: Simulated home set up using bed rail for wall railing, home commode, and bedside chair as bed. Completed 3 trials with Kirk's assist, making adjustments as needed, with each trial. Patient/Family Education: transfer safety, body mechanics Education Provided to: Aurora And Kirk Learner's Response: Able to demonstrate At the end of today's therapy session patient was left seated in bedside chair with an appropriate call light within reach. Patient's needs and questions addressed during today's session. Contact monitoring: PPE used during therapy: Therapist was wearing the following PPE throughout entire session: surgicalmask, eye protection and gloves Assessment Patient willing to participate, present and motivated to attempt simulated trials. Room reconfigured to simulate bedroom set up at home. Attempted 3 trials of pivot transfers from commode to bed and back, using bedrail (railing on wall at home). Adjustments were made throughout trials for body mechanics, safety and helper position. Patient and verbalized and demonstrated transfers safely. Patient is currently dependent with her all of her self-cares due to BLE weakness, decreased activity tolerance, and impaired functional balance.??Patient continues to benefit from skilled occupationaltherapy services to progress functional performance??and participation in daily tasks while??optimizing safety for both patient and . Barriers to Discharge Home: Current functional status, Safety concerns, Fall risk Barriers to Discharge Comments: Requires assist of two for mobilizing Comorbid Conditions: Other (Comment), Cerebrovascular accident (see [facility] for full medical history) Personal Factors: Balance impairment, Communication deficit, Hand dominance, History of falls, Needsassistive device, Safety awareness Discharge Therapy Needs - OT: Ongoing skilled occupational therapy Level of Care Needed - OT: Assistance with toileting, Assistance with toilet/shower transfers, Assistance with medication set up/administration, Assistance with showering/bathing, Assistance with dressing, Physical assistance needed, Assistance with meal preparation, Assistance with student financial services counselor, Assistance with transportation, Assistance with housekeeping, Assistance with shopping, Cognitiveassistance needed, Assistance with eating/feeding Functional Goals and Timeframes: OT Goal #1: STG: Pt will complete stand pivot commode transfer with minimal assistance x1 and use ofadaptive equipment as needed. OT Goal #1 Status: Progressing OT Goal #2: STG: Patient will complete LB dressing with use of adaptive equipment with moderate assist of 1. OT Goal #2 Status: Progressing OT Goal #3: STG: Pt will be able to maintain standing with adaptive setup and moderate assistance toallow caregiver to safely assist with clothing management for self cares and to participate in grooming tasks. (4/4 - requiring assist x2, 1 for moderate to max assist for standing balance and 1 for clothing management) OT Goal #3 Status: Progressing OT Goal #4: LTG: Pt's spouse will verbalize understanding on safe mechanics and DME for patient to continue to participate with ADL cares. OT Goal #4 Status: Progressing Progress: Progressing toward goals Plan Patient agrees with the plan of care and goals. Treatment Plan: OT Frequency: 5 times per week OT Amount: 2 visits per day OT Inpatient Duration : Until goals are met or hospital discharge Plan: Continue with current plan Treatment interventions may include: Treatment Interventions: Therapeutic exercise, Therapeutic functional activity, Neuromuscular re-education, Self-care/home management, Manual therapy Therapeutic Interventions Home Management Training (min): 15 min Therapeutic Activity (min): 45 min Time Tracking Total Timed Units (min): 60 min Total Treatment Time (min): 60 min OT Individual: 60 Minutes Yun Barboza O.T. Niyah Early M.D. - 09/19/2021 7:49 AM CDT SUBJECTIVE Mrs. Aurora Langley is a 76-year-old, right-handed, [place]-speaking woman with past medical history of TBI with residual posttraumatic epilepsy, right spastic hemiparesis and expressive aphasia s/p SKY LINE YARDER shunt (1995) and lumbar spinal stenosis now status post L2-L5 lumbar laminectomy on 09/02/[address] Castellon. She is admitted to acute inpatient rehabilitation for lower extremity weakness and impairments in gait and ADL performance. Aurora and Kirk were eating breakfast together this morning. Aurora reported feeling well and denied any pain or discomfort. She will continue on a 25/12 schedule for now and a team conference is planned for Tuesday to reassess her anticipated dismissal date. All questions and concerns were addressed to the best of my ability. OBJECTIVE Temperature: [36.9 ??C] 36.9 ??C Resp Rate: [15] 15 Blood Pressure: (122-140)/(66-82) 122/66 SpO2: [93 %-95 %] 93 % Physical Exam: General: Well-appearing woman seated up to chair eating breakfast. Seated comfortably, dressed and ready for the day. HEENT: Normocephalic, atraumatic. Hearing grossly intact. Glasses in place. Mucus membranes moist. No scleral icterus. Cardiovascular: Hemodynamically stable Respiratory: No dyspnea or use of accessory muscles. Respiratory rate as noted above in vital signs. Extremities: No lower extremity edema appreciated. ASSESSMENT / PLAN Mrs. Aurora Langley is a 76-year-old, right-handed, [place]-speaking woman with past medical history of TBI with residual posttraumatic epilepsy, right spastic hemiparesis and expressive aphasia s/p SKY LINE YARDER shunt (1995) and lumbar spinal stenosis now status post L2-L5 lumbar laminectomy on 09/02/[address] Castellon. She is admitted to acute inpatient rehabilitation for lower extremity weakness and impairments in gait and ADL performance. Plan for Today (09/19/21): - Continue with multidisciplinary therapy - Plan for ITC on Tuesday to assess possible adjustment to dismissal date - monitor for neurologic change including possible seizure activity. 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 Ross arranged for October 21 - Neurology consult recommended continuing at home doses of carbamazepine and levetiracetam - Diazepam 5 mg as needed for seizure-like activity for lasting greater than 5 minutes (one eye closed, face-glossing over, right eyelid twitching, and NOT responding or following commands), can be given twice for a total of 10 mg if not responsive to first dose ?? # Hyperlipidemia - Continue home atorvastatin 10 mg every 48 hours - Continue home aspirin 81 mg daily ?? FULL CODE as discussed with patient. Diet: Regular DVT prophylaxis: Lovenox Bowel: bowel medication regimen as needed Bladder: currently voiding at her baseline Disposition: anticipate discharge September 22; goal to home with family support [place] [facility] [place] [phone] with any questions or concerns. ?? Niyah Early M.D. PM&R, PGY-2 Associated attestation - Merrick Mattson M.D. - 09/19/2021 12:08 PM CDT I saw and evaluated the patient, participating in the trinh portions of the service. I reviewed the note of Dr. Early. I agree with the resident/fellow???s findings and plan. Ms. Langley is capable of participating in rehabilitation. She continues to progress towards functional independence in the area(s) of mobility, self-care, communication, and cognition and will benefit from ongoing intensive inpatient rehabilitation. I reviewed with the patient and her spouse; she is overall doing well and making progress with therapy. They are hoping that her rehab stay can be extended; there will be a team meeting early this week. Merrick Mattson M.D. Denise Macedo P.TJimenez. - 09/18/2021 4:26 PM CDT Physical Therapy Rehabilitation [facility] Inpatient Treatment SUBJECTIVE Patient's Name: Aurora Langley Reason for Referral: PT Evaluate and Treat: Inpatient rehabilitation Medical Diagnosis: 1. Laminectomy Lumbar Status Post 2. Lack Of Coordination 3. Decline Functional Status 4. Imbalance Non Orthopedic 5. Weakness General 6. Unsteadiness Gait Disorder Non Orthopedic History of Present Illness: Patient is s/p L2-L5 laminectomies for lumbar stenosis with gait instability by Dr. 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 Onset Date: 09/02/21 Patient/Caregiver Goals: Be able to complete cares with support of spouse to return home Precautions Other Precautions: fall, history of TBI, expressive aphasia, no functional use of RUE, R inattention, uses R AFO and knee brace for ambulation with assist OBJECTIVE solid ankle foot orthosis donned prior to mobility and throughout all functional mobility Pain: Did not express pain Vitals: Not indicated at this time Bed Mobility - Supine to Sit # of Assistants: 1 Level of Assistance: Supervision/Set-up Device: Bed rail Comments: requires extra time to complete Sit to Stand Transfers # of Assistants: 1 Transfer Surface: Wheelchair, Bed Transfer Equipment: Gait belt, Single rail, Sit to stand machine Level of Assistance: Minimal assistance Assessment/Delivery: Assessed, Instructed, Therapist assisted, Facilitated Comments: sit to stand transfer practice. Minimal assistance . Cues and assistance for anterior weight shift. Stand to Sit Transfers # of Assistants: 1 Transfer Surface: Wheelchair Transfer Equipment: Gait belt, Single rail Level of Assistance: Moderate assistance Assessment/Delivery: Assessed, Instructed, Therapist assisted, Facilitated Comments: Facilitation for slow controlled eccentric descent. facilitation for hip placement Bed, Chair, Wheelchair Transfers # of Assistants: 1 Transfer Surface: Chair, Wheelchair (Therapy mat) Transfer Approach: To and from Transfer Equipment: Sit to stand machine Level of Assistance: Moderate assistance Assessment/Delivery: Assessed, Instructed, Educated, Therapist assisted, Facilitated Comments: shannan biswas Gait Assessment/Training Distance (m): 2 m (1m x4) Surface: Even Device: No device, Gait belt, Single rail # of Assistants: 1 (2nd for wheelchair follow) Level of Assistance: Moderate assistance, Maximal assistance Quality/Pattern: Decreased heel strike, Decreased stance time R, Decreased base of support, Step-to,Scissoring Assessment of Gait: Unable to shift weight, forward flexed posture and downward gaze, knee-knocked LE stance, step to gait pattern when fatigued, heavy use of L UE on kemi-rail with frequent use of forearm on rail Cueing Provided: Verbal, Tactile Training/Intervention: cues for gait mechanics, facilitation with weight shifts, R knee extension, standing tall, and extending arm so elbow is not on rail. Response: more fatigued Balance Retraining Sitting: Static, Midline orientation (comment), Reaching through moderate excursions Sitting Balance Comments: reaching with L UE in multiple directions, targetted tapping with L UE Static Standing Balance: Static standing, Midline orientation Static Standing Balance Comments: cues to stand tall and extend knees Supine Exercise - Side Addressed: Bilateral Supine Exercise: Heel slides, Short arc quads, Calf stretch, Hamstring stretch Exercise Mode: Active assistance (comment) Seated Exercise - Side Addressed: Bilateral Sitting Surface: Wheelchair Seated Exercise: Ankle pumps, Marching, Long arc quads, Hip abduction/adduction Exercise Mode: Active motion against gravity Wheelchair Propulsion #1 Propulsion Type : Manual Distance: 5 feet Method: Right lower extremity, Left lower extremity Terrain Description: Smooth level surface Level of Assistance: Minimal assistance Assessment/Treatment: Assessed, Instructed, Educated Propulsion Comments: trialed propelling wheelchair with B LE Patient/Family Education: Training on wheelchair propulsion Education Provided to: Sal Learner's Response: Requires continued education At the end of today's therapy session patient was left seated in a wheelchair with an appropriate call light within reach. Patient's needs and questions addressed during today's session. Contact monitoring: PPE used during therapy: Therapist was wearing the following PPE throughout entire session: surgicalmask and eye protection Patient was wearing a mask during therapy session: yes Family member/caregiver present was wearing a mask: yes Additional Staff Present During Session: Brooklyn Garcia DPT and Pedro Garcia Assessment Patient continues to demonstrate improvement with LE in seated exercises. Patient has difficulty with multistep commands and still requires maximal assistance for sequencing, anterior weight shift, andlift for low pivot transfer as well as maximal cueing. Patient continues to benefit from solid anklefoot orthosis for wheelchair propulsion and ambulation. Patient will benefit from continued skilled physical therapy interventions for strength, neuromuscular re-education, and transfer training to reduce caregiver burden for homegoing. Barriers to Discharge Home: Current functional status, Safety concerns, Fall risk Barriers to Discharge Comments: Requires assist of two for mobilizing Comorbid Conditions: Other (Comment), Cerebrovascular accident (see [facility] for full medical history) Personal Factors: Balance impairment, Communication deficit, Hand dominance, History of falls, Needsassistive device, Safety awareness Discharge Therapy Needs - PT: Ongoing skilled physical therapy Level of Care Needed - PT: Assistance with transfers (Comment), Assistance with walking and moving around the home, Assistance with bed mobility, Cognitive assistance needed Equipment Recommended - PT: Other (Comment), Wheelchair (Shannan Stedy may be beneficial for transfers/etc.; patient only has standard manual wheelchair available, may benefit from ordering custom wheelchair) Functional Goals and Timeframes: PT Goal #1: Patient and spouse will be able to perform bed mobility using no hospital bed features with Min A x1 in order to increase independence in home. PT Goal #1 Date: 09/12/21 PT Goal #1 Status: Achieved PT Goal #2: Patient will be able to complete sit to/from stand transfer using Shannan Stedy or most appropriate gait device with Min A x1 in order to improve household mobility. PT Goal #2 Date: 09/12/21 PT Goal #2 Status: Advanced PT Goal #3: At discharge, patient will be able to perform stand pivot transfer using least restrictive device with Mod A x1 in order to improve household mobility. PT Goal #3 Date: 09/19/21 PT Goal #3 Status: Progressing PT Goal #4: Patient will demonstrate ability to maintain unsupported sitting at least 10 minutes to improve mobility and safety. PT Goal #4 Date: 09/19/21 PT Goal #4 Status: Achieved Progress: Progressing toward goals Plan Patient agrees with the plan of care and goals. Treatment Plan: PT Frequency: 6 times per week PT Amount: 2 visits per day PT Inpatient Duration : Until goals are met or hospital discharge Plan: Continue with current plan PT Plan Comments: Continue progression towards improved participation and safety with functional mobility. Progress towards mobility with Ax1 with caregiver training. Treatment interventions may include: Treatment/Interventions: Therapeutic exercise, Therapeutic functional activity, Neuromuscular re-education, Gait training, Self-care/home management, Orthosis [id number] [employer] Visit Trackin Time Spent with Patient Therapeutic Interventions Therapeutic Activity (min): 19 min Therapeutic Exercise (min): 27 min Time Tracking Total Timed Units (min): 91 min Total Treatment Time (min): 91 min PT Individual : 46 Minutes Denise Macedo P.TRico Fanny Deal M.S., O.T. - 09/18/2021 4:08 PM CDT Occupational Therapy Rehabilitation [facility] Inpatient Progress Note SUBJECTIVE Patient's Name: Aurora Langley Reason for Referral: OT Evaluate and Treat, IRF Medical Diagnosis: 1. Laminectomy Lumbar Status Post 2. Lack Of Coordination 3. Decline Functional Status 4. Imbalance Non Orthopedic 5. Weakness General 6. Unsteadiness Gait Disorder Non Orthopedic History of Present Illness: Patient is s/p L2-L5 laminectomies for lumbar stenosis with gait instability by Dr. 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 Onset Date: 09/02/21 Patient/Caregiver Goals: Be able to complete cares with support of spouse to return home Patient Comments: Patient agreeable to occupational therapy. Precautions Other Precautions: fall, history of TBI, expressive aphasia, no functional use of RUE, R inattention, uses R AFO and knee brace for ambulation Fall Risk (65 and older) Fall in the last 12 months: Yes Did you have an injury with the fall?: No Are you fearful of falling?: Yes OBJECTIVE Pain: No pain reported today. Vitals: LE Dressing LE Dressing Location: Wheelchair LE Dressing Delivery: Assessed, Therapist Assisted, Facilitated, Instructed LE Dressing Items Included: Pants, Shoes, Underwear/Adult incontinence briefs, Orthotic LE Dressing Level of Assistance: Maximal assistance, Total assistance LE Dressing Comments: Facilitated repeated performance of donning/doffing pants to establish new routine for patient and at discharge. In the past, patient was able to support herself by leaning against a vertical pole in living room to pull pants up/down. Education provided that patient's current level of function, impaired balance, and spinal precautions will necessitate more assistance from for LB dressing to avoid bending and twisting. Today, patient was able to offload her left hand and help with waistband while therapist provided maximum assistance for standing balance. However, recommending patient hold on while caregiver provide clothing management for safety at this time. Toileting Toileting Location: Toilet Toileting Delivery: Assessed, Therapist Assisted, Facilitated Toileting Level of Assistance: Moderate assistance Toileting Comments: Patient and demonstrated how home-based toileting is performed, modifiedto include SaraStedy. Patient was able to pull herself up with SaraStedy bar so that could pull pants up/down. Patient able to perform emil-cares with front approach with setup from with tissue. Therapeutic Activity Facilitated massed repetitions of stand-pivot transfers to promote safe body mechanics for patient and during self-cares and bed mobility. Instruction on hand placement and how to facilitate weight shifts, sequencing, and foot placement for optimal safety. Patient performed wheelchair>commode and commode<>bed transfers. Patient and return demonstrated fair understanding but will benefit from ongoing practice. Patient may benefit from low-pivot transfers only due to quick onset of fatigue. Patient/Family Education: functional transfers, level of assist Education Provided to: Gitta and Learner's Response: Requires cueing and Requires continued education At the end of today's therapy session patient was left in bed with an appropriate call light within reach. Patient's needs and questions addressed during today's session. Contact monitoring: PPE used during therapy: Therapist was wearing the following PPE throughout entire session: surgicalmask and eye protection Patient was wearing a mask during therapy session: no Family member/caregiver present was wearing a mask: no Assessment Patient is progressing with functional skills needed to perform activities of daily living. Today, patient??and participated in ongoing education regarding pivot transfers from bed<>wheelchair to promote good body mechanics and reduce risk of injury. Patient performs best with use of SaraStedy for safe sit<>stands and transfers, but patient and will benefit from ongoing tra ining for situations in which the SaraStedy cannot fit, such as in patient's bedroom. ?? Patient is currently dependent with her all of her self-cares due to BLE weakness, decreased activity tolerance, and impaired functional balance.??Patient continues to benefit from skilled occupationaltherapy services to progress functional performance??and participation in daily tasks while??optimizing safety for both patient and . Barriers to Discharge Home: Current functional status, Safety concerns, Fall risk Barriers to Discharge Comments: Requires assist of two for mobilizing Comorbid Conditions: Other (Comment), Cerebrovascular accident (see [facility] for full medical history) Personal Factors: Balance impairment, Communication deficit, Hand dominance, History of falls, Needsassistive device, Safety awareness Discharge Therapy Needs - OT: Ongoing skilled occupational therapy Level of Care Needed - OT: Assistance with toileting, Assistance with toilet/shower transfers, Assistance with medication set up/administration, Assistance with showering/bathing, Assistance with dressing, Physical assistance needed, Assistance with meal preparation, Assistance with student financial services counselor, Assistance with transportation, Assistance with housekeeping, Assistance with shopping, Cognitiveassistance needed, Assistance with eating/feeding Functional Goals and Timeframes: OT Goal #1: STG: Pt will complete stand pivot commode transfer with minimal assistance x1 and use ofadaptive equipment as needed. OT Goal #1 Status: Progressing OT Goal #2: STG: Patient will complete LB dressing with use of adaptive equipment with moderate assist of 1. OT Goal #2 Status: Progressing OT Goal #3: STG: Pt will be able to maintain standing with adaptive setup and moderate assistance toallow caregiver to safely assist with clothing management for self cares and to participate in grooming tasks. (4/4 - requiring assist x2, 1 for moderate to max assist for standing balance and 1 for clothing management) OT Goal #3 Status: Progressing OT Goal #4: LTG: Pt's spouse will verbalize understanding on safe mechanics and DME for patient to continue to participate with ADL cares. OT Goal #4 Status: Progressing Progress: Progressing toward goals Plan Patient agrees with the plan of care and goals. Treatment Plan: OT Frequency: 5 times per week OT Amount: 2 visits per day OT Inpatient Duration : Until goals are met or hospital discharge Plan: Continue with current plan Treatment interventions may include: Treatment Interventions: Therapeutic exercise, Therapeutic functional activity, Neuromuscular re-education, Self-care/home management, Manual therapy Therapeutic Interventions Home Management Training (min): 45 min Therapeutic Activity (min): 45 min Time Tracking Total Timed Units (min): 90 min Total Treatment Time (min): 90 min OT Individual: 90 Minutes Fanny Deal M.S., O.T. Niyah Early M.D. - 09/18/2021 7:22 AM CDT SUBJECTIVE Mrs. Aurora Langley is a 76-year-old, right-handed, [place]-speaking woman with past medical history of TBI with residual posttraumatic epilepsy, right spastic hemiparesis and expressive aphasia s/p SKY LINE YARDER shunt (1995) and lumbar spinal stenosis now status post L2-L5 lumbar laminectomy on 09/02/[address] Castellon. She is admitted to acute inpatient rehabilitation for lower extremity weakness and impairments in gait and ADL performance. Mrs. Langley continues to have ongoing fatigue, that at times will limit her ability to fully participate in her therapy sessions, particularly in the afternoon. We did make the adjustment earlier in her stay to provide some rest time immediately after lunch, but it appears that she still is quite tired in the afternoons. Additionally, there is some concern for whether or not September 22 is going to be enough time to safely return home, we will arranged for a team conference on Tuesday to revisit this concern. Aurora reports feeling well and ready to continue making progress in her recovery. All questions and concerns were addressed to the best of my ability. Multidisciplinary discharge rounds: I participated in multidisciplinary bedside rounds today. Attendees included: patient, family member(s), physician, bedside nurse, lawn caretaker, physical therapist, occupational therapist and Social work. Medical updates were provided. Also discussed was progress toward patient centered goals, ongoing rehabilitation needs and dismissal planning. OBJECTIVE Temperature: [36.3 ??C-37.1 ??C] 36.3 ??C Resp Rate: [16] 16 Blood Pressure: (111-125)/(56-70) 111/56 SpO2: [93 %-97 %] 93 % Physical Exam: General: Well-appearing woman seated up to chair awaiting breakfast. Seated comfortably, dressed andready for the day. Jenniferi is attentive at bedside. HEENT: Normocephalic, atraumatic. Hearing grossly intact. Cardiovascular: Hemodynamically stable Respiratory: No dyspnea or use of accessory muscles. Respiratory rate as noted above in vital signs. ASSESSMENT / PLAN Mrs. Aurora Langley is a 76-year-old, right-handed, [place]-speaking woman with past medical history of TBI with residual posttraumatic epilepsy, right spastic hemiparesis and expressive aphasia s/p SKY LINE YARDER shunt (1995) and lumbar spinal stenosis now status post L2-L5 lumbar laminectomy on 09/02/[address] Castellon. She is admitted to acute inpatient rehabilitation for lower extremity weakness and impairments in gait and ADL performance. Plan for Today (09/19/21): - Transition to 25/12 schedule - Plan for ITC on Tuesday to assess possible - monitor for neurologic change including possible seizure activity. 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 Ross arranged for October 21 - Neurology consult recommended continuing at home doses of carbamazepine and levetiracetam - Diazepam 5 mg as needed for seizure-like activity for lasting greater than 5 minutes (one eye closed, face-glossing over, right eyelid twitching, and NOT responding or following commands), can be given twice for a total of 10 mg if not responsive to first dose ?? # Hyperlipidemia - Continue home atorvastatin 10 mg every 48 hours - Continue home aspirin 81 mg daily ?? FULL CODE as discussed with patient. Diet: Regular DVT prophylaxis: Lovenox Bowel: bowel medication regimen as needed Bladder: currently voiding at her baseline Disposition: anticipate discharge September 22; goal to home with family support [place] [facility] [place] [phone] with any questions or concerns. ?? Niyah Early M.D. PM&R, PGY-2 Associated attestation - Teddy Avendano M.D., Ph.D. - 09/18/2021 3:41 PM CDT I saw and evaluated the patient, participating in the trinh portions of the service. I reviewed the resident/fellow???s note. I agree with the resident/fellow???s findings and plan. Ms. Langley is capable of participating in rehabilitation. She continues to progress towards functional independence in the area(s) of mobility, self-care, and communication and will benefit from ongoing intensive inpatient rehabilitation. I have met with the patient and participated in her in room team rounds. Ms. Langley had no new concerns but continues to be limited by fatigue as reported both by her as well as the therapy team. PT and OT note good performance initially in there sessions but a rapid tail off after the first1/2 hour or so. Transfers require maximal assistance and gait, thus far, is limited to only a few steps. BP 122/77 (BP Location: Left arm;Upper, Patient Position: Sitting) Pulse 79 Temp 36.8 ??C (Oral) Resp 14 Ht 172.2 cm Wt 64.9 kg SpO2 97% BMI 21.89 kg/m?? No results found for this or any previous visit (from the past 24 hour(s)). Intake/Output Summary (Last 24 hours) at 09/18/2021 1518 Last data filed at 09/18/2021 1428 Gross per 24 hour Intake 730 ml Output 450 ml Net 280 ml Wt 64.9 kg initial weight 67.6 kg Ms. Langley is working hard but continues to require maximal assistance with almost any activity and fatigues rapidly. We will switch her to a 25/12 schedule and have a patient care conference early next week to assess her progress and needs for safe return home. She has lost a significant amount of weight with the last weighing being September 15. We will recheck her weight and perhaps her electrolytesif her weight loss has persisted. Ms Todd will need a kemi height K0005 WC for her return home. I've recorded a face to face examination below. Teddy Avendano M.D., Ph.D. PPE use information for possible contact monitoring: PPE used during visit: Provider was wearing a mask and eye protection throughout entire session. Patient was NOT wearing mask during entire session. I have met face to face with Aurora Langley about the medical need for a mobility device. Aurora Langley requires a mobility device in their home environment upon dismissal from the inpatient rehabilitation unit. K0005 Ultra lightweight (manual wheelchair) is necessary because Aurora Langley is non-ambulatory; no gait aid will be safe and effective for functional mobility and patient requires a wheelchair. Aurora Langley has the following medical conditions which adversely impact safe, efficient and independent ambulation: Hemiplegia: Right upper extremity and Right lower extremity affected. It has been determined that Aurora Langley is safe and independent in situations and environments that simulate Her home layout with this recommended wheelchair. Aurora Langley depends on this wheelchair full-time and is independent propelling household distances Aurora Langley requires an axle position and/or seat/back angle that is not available on the K0004/K0003/K0002/K0001 wheelchair models Aurora Langley requires that the frame weight be less than 32 pounds for efficient propulsion Aurora Langley requires this specific model of wheelchair for mobilizing inside the home environmentfull time and is willing to use this equipment for in home mobility. Aurora Langley requires this wheelchair for in-home mobility on a permanent basis, thus purchase is recommended. It is expected that Aurora Langley will have limited functional recovery rendering this type of wheelchair for a permanent means of independent mobility . Aurora Langley requires the wheelchair with the recommended features outlined in the therapist's evaluation and my letter of medical necessity. It has been determined that these features are medically necessary and represent the least costly options. Denise Macedo P.T.A. - 09/17/2021 3:48 PM CDT [facility] SUBJECTIVE Patient's Name: Aurora Langley Reason for Referral: PT Evaluate and Treat: Inpatient rehabilitation Medical Diagnosis: 1. Laminectomy Lumbar Status Post 2. Lack Of Coordination 3. Decline Functional Status 4. Imbalance Non Orthopedic 5. Weakness General 6. Unsteadiness Gait Disorder Non Orthopedic History of Present Illness: Patient is s/p L2-L5 laminectomies for lumbar stenosis with gait instability by Dr. 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 Onset Date: 09/02/21 Patient/Caregiver Goals: Be able to complete cares with support of spouse to return home Precautions Other Precautions: fall, history of TBI, expressive aphasia, no functional use of RUE, R inattention, uses R AFO and knee brace for ambulation OBJECTIVE ankle foot orthosis donned prior to mobility and throughout all functional mobility Pain: No reports of pain Vitals: taken by nurse in PM session, within normal limits Bed Mobility - Rolling Device: None Bed Mobility - Sit to Supine # of Assistants: 1 Level of Assistance: Supervision/Set-up Device: None Comments: patient requires extra time to complete task, effortful to lift R foot. Sit to Stand Transfers # of Assistants: 1 Transfer Surface: Wheelchair, Bed Transfer Equipment: Gait belt, Single rail, Sit to stand machine Level of Assistance: Minimal assistance Assessment/Delivery: Assessed, Instructed, Therapist assisted, Facilitated Comments: sit to stand transfer practice. Minimal assistance . Cues and assistance for anterior weight shift. repeated sit to stand transfers using shannan steady Stand to Sit Transfers # of Assistants: 1 Transfer Surface: Wheelchair Transfer Equipment: Gait belt, Single rail Level of Assistance: Moderate assistance Assessment/Delivery: Assessed, Instructed, Therapist assisted, Facilitated Comments: Facilitation for slow controlled eccentric descent. facilitation for hip placement Bed, Chair, Wheelchair Transfers # of Assistants: 1 Transfer Surface: Wheelchair, Bed (Therapy mat) Transfer Approach: To the left, Low/squat pivot Transfer Equipment: No device Level of Assistance: Maximal assistance Assessment/Delivery: Therapist assisted, Assessed, Instructed, Educated, Facilitated Comments: Maximal assistance for sequencing, hip placement, anterior weight shift, and lift. Gait Assessment/Training Distance (m): 4 m (1m x4) Surface: Even Device: No device, Gait belt, Single rail # of Assistants: 1 (2nd for wheelchair follow) Level of Assistance: Moderate assistance Quality/Pattern: Decreased heel strike, Decreased stance time R, Decreased base of support, Step-to,Scissoring Assessment of Gait: Unable to shift weight, forward flexed posture and downward gaze, knee-knocked LE stance, step to gait pattern when fatigued, heavy use of L UE on kemi-rail Cueing Provided: Verbal, Tactile Training/Intervention: cues for gait mechanics, facilitation with weight shifts and R knee extension. Response: tolerated well, fatigues quickly, wants to sit quickly when fatigued. Able to do step through pattern by end of session PT Neuromuscular Re-education Neuromuscular Re-education 1: sitting balance activity with focus on L UE coordination in batting balloon back and forth, cues to turn head to find balloon and hit target with hand Neuromuscular Re-education 2: Coordination training for B LE kicking soccer ball. R solid ankle footorthosis to assist with dorsiflexion Balance Retraining Static Standing Balance: Static standing, Lateral weight shifts Support Required: One UE support, Moderate assistance Supine Exercise - Side Addressed: Bilateral Supine Exercise: Heel slides, Calf stretch, Hamstring stretch Exercise Mode: Active assistance (comment) Sets/Repetitions: 1x10 Seated Exercise - Side Addressed: Bilateral Sitting Surface: Wheelchair, Mat Seated Exercise: Ankle pumps, Marching, Long arc quads, Knee flexion, Hip abduction/adduction Exercise Mode: Active motion against gravity, Elastic band (comment) Seated Exercise Comments: pink band for knee flexion. Verbal, tactile, and visual cues for hip abd/add Orthotics Type: ankle foot orthosis Intervention: Fabrication Education: Fitting Vendor: [employer] Comments: Patient fitted for R solid ankle foot orthosis Patient/Family Education: Education on solid ankle foot orthosis and pivot transfers Education Provided to: Sal Learner's Response: Requires continued education At the end of today's therapy session patient was left in bed with an appropriate call light within reach. Patient's needs and questions addressed during today's session. Contact monitoring: PPE used during therapy: Therapist was wearing the following PPE throughout entire session: surgicalmask and eye protection Patient was wearing a mask during therapy session: yes Assessment Patient continues to demonstrate improvement with strength, able to perform sit to stand transfers with minimal assistance if patient has solid bar to pull herself up. Continue to practice and education on stand pivot transfer however this continues to be maximal assistance with difficulty sequencing.She was able to progress ambulation distance at [facility] rail with moderate assistance x1 and a wheelchair follow. Patient will continue to benefit from skilled physical therapy interventions to learn safe stand pivot transfers to reduce caregiver burden, neuromuscular re- education, and functional mobility. Barriers to Discharge Home: Current functional status, Safety concerns, Fall risk Barriers to Discharge Comments: Requires assist of two for mobilizing Comorbid Conditions: Other (Comment), Cerebrovascular accident (see [facility] for full medical history) Personal Factors: Balance impairment, Communication deficit, Hand dominance, History of falls, Needsassistive device, Safety awareness Discharge Therapy Needs - PT: Ongoing skilled physical therapy Level of Care Needed - PT: Assistance with transfers (Comment), Assistance with walking and moving around the home, Assistance with bed mobility, Cognitive assistance needed Equipment Recommended - PT: Other (Comment), Wheelchair (Shannan Stedy may be beneficial for transfers/etc.; patient only has standard manual wheelchair available, may benefit from ordering custom wheelchair) Functional Goals and Timeframes: PT Goal #1: Patient and spouse will be able to perform bed mobility using no hospital bed features with Min A x1 in order to increase independence in home. PT Goal #1 Date: 09/12/21 PT Goal #1 Status: Progressing PT Goal #2: Patient will be able to complete sit to/from stand transfer using Shannan Stedy or most appropriate gait device with Min A x1 in order to improve household mobility. PT Goal #2 Date: 09/12/21 PT Goal #2 Status: Advanced PT Goal #3: At discharge, patient will be able to perform stand pivot transfer using least restrictive device with Mod A x1 in order to improve household mobility. PT Goal #3 Date: 09/19/21 PT Goal #3 Status: Progressing PT Goal #4: Patient will demonstrate ability to maintain unsupported sitting at least 10 minutes to improve mobility and safety. PT Goal #4 Date: 09/19/21 PT Goal #4 Status: Achieved Progress: Progressing toward goals Plan Patient agrees with the plan of care and goals. Treatment Plan: PT Frequency: 6 times per week PT Amount: 2 visits per day PT Inpatient Duration : Until goals are met or hospital discharge Plan: Continue with current plan PT Plan Comments: Continue progression towards improved participation and safety with functional mobility. Progress towards mobility with Ax1 with caregiver training. Treatment interventions may include: Treatment/Interventions: Therapeutic exercise, Therapeutic functional activity, Neuromuscular re-education, Gait training, Self-care/home management, Orthosis [id number] [employer] Visit Trackin Time Spent with Patient Therapeutic Interventions Neuromuscular Re-Education (min): 17 min Therapeutic Activity (min): 47 min Therapeutic Exercise (min): 26 min Time Tracking Total Timed Units (min): 90 min Total Treatment Time (min): 90 min PT Individual : 90 Minutes Femi FranzTRico Niyah Early M.D. - 09/17/2021 7:33 AM CDT SUBJECTIVE Mrs. Aurora Langley is a 76-year-old, right-handed, [place]-speaking woman with past medical history of TBI with residual posttraumatic epilepsy, right spastic hemiparesis and expressive aphasia s/p SKY LINE YARDER shunt (1995) and lumbar spinal stenosis now status post L2-L5 lumbar laminectomy on 09/02/[address] Castellon. She is admitted to acute inpatient rehabilitation for lower extremity weakness and impairments in gait and ADL performance. Aurora reports feeling well this morning. Aries were removed yesterday. She did have some sleep disruption overnight, requested to move to the chair, had a snack, and then returned to bed thereafter. They are working to purchase a Shannan Steady for use at home. I have placed an order for right solid ankle AFO per request from physical therapy. All questions and concerns were addressed to the best of my ability. OBJECTIVE Temperature: [36.3 ??C-36.8 ??C] 36.3 ??C Resp Rate: [15-16] 16 Blood Pressure: (127-146)/(58-86) 129/71 SpO2: [93 %-95 %] 93 % Physical Exam: General: Well-appearing woman seated up to chair awaiting breakfast. Seated comfortably, dressed andready for the day. HEENT: Normocephalic, atraumatic. Hearing grossly intact. Cardiovascular: Hemodynamically stable Respiratory: No dyspnea or use of accessory muscles. Respiratory rate as noted above in vital signs. ASSESSMENT / PLAN Mrs. Aurora Langley is a 76-year-old, right-handed, [place]-speaking woman with past medical history of TBI with residual posttraumatic epilepsy, right spastic hemiparesis and expressive aphasia s/p SKY LINE YARDER shunt (1995) and lumbar spinal stenosis now status post L2-L5 lumbar laminectomy on 09/02/[address] Castellon. She is admitted to acute inpatient rehabilitation for lower extremity weakness and impairments in gait and ADL performance. Plan for Today (09/17/21): - Order placed for right solid ankle AFO - continue with multidisciplinary inpatient rehabilitation - monitor for neurologic change including possible seizure activity. # Lumbar spinal stenosis with neurogenic claudication s/p L2-L5 laminectomy (09/02/21) # Progressive lower limb weakness # Gait unsteadiness # History of TBI resulting in spastic right hemiparesis, posttraumatic epilepsy and expressive aphasia - Comprehensive PT/OT - Restrictions: 15-20 pound lifting restriction and no heavy lifting, twisting or bending for 6 weeks post-op which will be October 14 - Pain control regimen includes: Tylenol 1000 mg every 6 hours as needed - Continue home seizure medication regimen: carbamazepine 500 mg twice daily levetiracetam 500 mg every morning, 250 mg with lunch, 500 mg every evening folic acid 1,000 mcg daily - Neurosurgery will coordinate outpatient follow-up - Physical Medicine & Rehabilitation follow-up with Dr. Ross arranged for October 21 - Neurology consult recommended continuing at home doses of carbamazepine and levetiracetam - Diazepam 5 mg as needed for seizure-like activity for lasting greater than 5 minutes (one eye closed, face-glossing over, right eyelid twitching, and NOT responding or following commands), can be given twice for a total of 10 mg if not responsive to first dose ?? # Hyperlipidemia - Continue home atorvastatin 10 mg every 48 hours - Continue home aspirin 81 mg daily ?? FULL CODE as discussed with patient. Diet: Regular DVT prophylaxis: Lovenox Bowel: bowel medication regimen as needed Bladder: currently voiding at her baseline Disposition: anticipate discharge September 22; goal to home with family support Please [place] [facility] [place] [phone] with any questions or concerns. ?? Niyah Early M.D. PM&R, PGY-2 Associated attestation - Teddy Avendano M.D., Ph.D. - 09/17/2021 6:35 PM CDT I saw and evaluated the patient, participating in the trinh portions of the service. I reviewed the resident/fellow???s note. I agree with the resident/fellow???s findings and plan. Ms. Langley is capable of participating in rehabilitation. She continues to progress towards functional independence in the area(s) of mobility, self-care, and communication and will benefit from ongoing intensive inpatient rehabilitation. I have met with the patient. Ms. Langley had no new concerns. She is continuing to work hard in therapy and has reached the point where she can do a low squant pivot with maximal assistance or 1 and walk 4 meters with the maximal assist of 2. BP 122/65 (BP Location: Left arm;Upper) Pulse 85 Temp 37 ??C (Oral) Resp 16 Ht 172.2 cm Wt64.9 kg SpO2 97% BMI 21.89 kg/m?? No results found for this or any previous visit (from the past 24 hour(s)). Intake/Output Summary (Last 24 hours) at 09/17/2021 1830 Last data filed at 09/17/2021 1600 Gross per 24 hour Intake 250 ml Output -- Net 250 ml Wt 64.9 kg initial weight 67.6 kg Ms. Langley continues to make good progress. A custom molded AFO has been ordered. We will continuewith our program and work for discharge home early next week with plans for continued outpatient therapy. Teddy Avendano M.D., Ph.D. PPE use information for possible contact monitoring: PPE used during visit: Provider was wearing a mask and eye protection throughout entire session. Patient was NOT wearing mask during entire session. Fanny Deal M.S., O.T. - 09/17/2021 6:37 AM CDT Occupational Therapy Rehabilitation [facility] Inpatient Progress Note SUBJECTIVE Patient's Name: Aurora Langley Reason for Referral: OT Evaluate and Treat, IRF Medical Diagnosis: 1. Laminectomy Lumbar Status Post 2. Lack Of Coordination 3. Decline Functional Status 4. Imbalance Non Orthopedic 5. Weakness General 6. Unsteadiness Gait Disorder Non Orthopedic History of Present Illness: Patient is s/p L2-L5 laminectomies for lumbar stenosis with gait instability by Dr. 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 Onset Date: 09/02/21 Patient/Caregiver Goals: Be able to complete cares with support of spouse to return home Patient Comments: Patient agreeable to occupational therapy, though requiring increased encouragement in the afternoon due to a very productive session with physical therapy. Precautions Other Precautions: fall, history of TBI, expressive aphasia, no functional use of RUE, R inattention, uses R AFO and knee brace for ambulation Fall Risk (65 and older) Fall in the last 12 months: Yes Did you have an injury with the fall?: No Are you fearful of falling?: Yes OBJECTIVE Pain: No pain this date. Vitals: Not indicated at this time Therapeutic Activity This morning's session was focused on functional transfers and BLE strength to improve patient's functional balance for mobility and standing activities of daily living. Patient performed three sit<>stands with instruction of vertical grab bar in patient bathroom to simulate home setup during dressing. Patient's was present and heavily involved in the transfer training. Patient's return-demonstrated good understanding of knee blocking to promote upright standing posture. In this setup, patient's can assist with donning/doffing LB clothing in the future. Patient and have identified a goal of increasing patient's independence with dressing. Therapist explained that this is a good step in that direction but patient will still require close hands-on assistance for dressing at this time. In the afternoon, session was focused function-based LUE strengthening and coordination during simple kitchen task. 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 Therapist oriented patient and to rehabilitation apartment to participate in baking brownies. Therapist setup task with [id number] instruction and facilitation of patient's participation with [id number] assistance. Patient was able to perform supination/pronation with guided assistance to pour ingredients into bowl. Patient was then able to make small but deliberatestirs of brownie mix while stabilized bowl. Patient then stated that she was tired and declined to continue. Back in patient's room, patient and return-demonstrated good understanding of safe mechanicsfor toilet transfer with Tammie. Therapist provided contact guard assistance on patient's right side and close supervision. Patient's demonstrated understanding of brakes, sequencing, positioning over toilet, and body mechanics during transfer. Patient does well with prompts 1... 2... 3 in advance of sit<>stands. Patient's verbalized how pleased he is with patient's progress and functional use of BLE (L>R). Patient/Family Education: functional transfers, bathroom equipment Education Provided to: Aurora Learner's Response: Requires cueing and Requires continued education At the end of today's therapy session patient was left in bed with an appropriate call light within reach. Patient's needs and questions addressed during today's session. Contact monitoring: PPE used during therapy: Therapist was wearing the following PPE throughout entire session: surgicalmask and eye protection Patient was wearing a mask during therapy session: donned for therapy kitchen Family member/caregiver present was wearing a mask: donned for hallways Assessment Patient is progressing with functional skills needed to perform activities of daily living. Today, patient and return-demonstrated sit<>stand with use of a vertical grab bar and R-knee blocking to progress participation and safety during LB dressing and toileting. Patient does require increased encouragement in the afternoon session due to report of fatigue. Patient is currently dependent with her all of her self-cares due to BLE weakness, decreased activity tolerance, and impaired functional balance. Patient continues to benefit from skilled occupational therapy services to progress functional performance and participation in daily tasks while optimizingsafety for both patient and . Barriers to Discharge Home: Current functional status, Safety concerns, Fall risk Barriers to Discharge Comments: Requires assist of two for mobilizing Comorbid Conditions: Other (Comment), Cerebrovascular accident (see [facility] for full medical history) Personal Factors: Balance impairment, Communication deficit, Hand dominance, History of falls, Needsassistive device, Safety awareness Discharge Therapy Needs - OT: Ongoing skilled occupational therapy Level of Care Needed - OT: Assistance with toileting, Assistance with toilet/shower transfers, Assistance with medication set up/administration, Assistance with showering/bathing, Assistance with dressing, Physical assistance needed, Assistance with meal preparation, Assistance with student financial services counselor, Assistance with transportation, Assistance with housekeeping, Assistance with shopping, Cognitiveassistance needed, Assistance with eating/feeding Functional Goals and Timeframes: OT Goal #1: STG: Pt will complete stand pivot commode transfer with minimal assistance x1 and use ofadaptive equipment as needed. OT Goal #1 Status: Advanced OT Goal #2: STG: Patient will complete LB dressing with use of adaptive equipment with moderate assist of 1. OT Goal #2 Status: Progressing OT Goal #3: STG: Pt will be able to maintain standing with adaptive setup and moderate assistance toallow caregiver to safely assist with clothing management for self cares and to participate in grooming tasks. (4/4 - requiring assist x2, 1 for moderate to max assist for standing balance and 1 for clothing management) OT Goal #3 Status: Progressing OT Goal #4: LTG: Pt's spouse will verbalize understanding on safe mechanics and DME for patient to continue to participate with ADL cares. OT Goal #4 Status: Progressing Progress: Progressing toward goals Plan Patient agrees with the plan of care and goals. Treatment Plan: OT Frequency: 6 times per week OT Amount: 2 visits per day OT Inpatient Duration : Until goals are met or hospital discharge Plan: Continue with current plan Treatment interventions may include: Treatment Interventions: Therapeutic exercise, Therapeutic functional activity, Neuromuscular re-education, Self-care/home management, Manual therapy Therapeutic Interventions Therapeutic Activity (min): 90 min Time Tracking Total Timed Units (min): 90 min Total Treatment Time (min): 90 min OT Individual: 90 Minutes Fanny Deal M.S., O.T. Denise Macedo P.T.A. - 09/16/2021 4:02 PM CDT [facility] SUBJECTIVE Patient's Name: Aurora Langley Reason for Referral: PT Evaluate and Treat: Inpatient rehabilitation Medical Diagnosis: 1. Lack Of Coordination 2. Decline Functional Status 3. Imbalance Non Orthopedic 4. Weakness General History of Present Illness: Patient is s/p L2-L5 laminectomies for lumbar stenosis with gait instability by Dr. 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 Onset Date: 09/02/21 Patient/Caregiver Goals: Be able to complete cares with support of spouse to return home Precautions Other Precautions: fall, history of TBI, expressive aphasia, no functional use of RUE, R inattention, uses R AFO and knee brace for ambulation OBJECTIVE solid ankle foot orthosis donned in seated position prior to third walk Pain: Some back pain in PM session due to just having aries removed Vitals: Not indicated at this time Bed Mobility - Rolling # of Assistants: 1 Level of Assistance: Minimal assistance Device: None Comments: patient able to roll to the side but needs minimal assistance at hips for optimal positioning in bed folowing roll Bed Mobility - Sit to Supine # of Assistants: 1 Level of Assistance: Supervision/Set-up Device: None Comments: patient requires extra time to complete task, effortful to lift R foot Sit to Stand Transfers # of Assistants: 1 Transfer Surface: Wheelchair Transfer Equipment: Gait belt, Single rail Level of Assistance: Moderate assistance, Minimal assistance Assessment/Delivery: Assessed, Instructed, Therapist assisted, Facilitated Comments: sit to stand transfer massed practice for strength. Varied between minimal assistance and moderate assistance depending on fatigue. Cues and assistance for anterior weight shift Stand to Sit Transfers # of Assistants: 1 Transfer Surface: Wheelchair Transfer Equipment: Gait belt, Single rail Level of Assistance: Moderate assistance Assessment/Delivery: Assessed, Instructed, Therapist assisted, Facilitated Comments: Facilitation for slow controlled eccentric descent. facilitation for hip placement Bed, Chair, Wheelchair Transfers # of Assistants: 1 Transfer Surface: Wheelchair, Bed (Therapy mat) Transfer Approach: To the left, Low/squat pivot Transfer Equipment: No device Level of Assistance: Maximal assistance Assessment/Delivery: Therapist assisted, Assessed, Instructed, Educated, Facilitated Comments: Low pivot transfer using wheelchair without removing arm rests for practice of current wheelchair. Maximal assistance for sequencing, hip placement, anterior weight shift, and lift. Low pivottransfer from wheelchair to bed in PM session removing arm rests. Gait Assessment/Training Distance (m): 4 m (1m x4) Surface: Even Device: No device, Gait belt, Single rail # of Assistants: 2 Level of Assistance: Maximal assistance Quality/Pattern: Decreased heel strike, Decreased stance time R, Decreased base of support, Step-to,Scissoring Assessment of Gait: Unable to shift weight, forward flexed posture and downward gaze, knee-knocked LE stance, step to gait pattern when fatigued, heavy use of L UE on kemi-rail Cueing Provided: Verbal, Tactile Training/Intervention: cues for gait mechanics, facilitation with weight shifts and R knee extension. Started with assist x2 then progressed to assist x1 with wheelchair follow. Response: tolerated well, fatigues quickly, wants to sit quickly when fatigued. PT Neuromuscular Re-education Neuromuscular Re-education 1: sitting balance and coordination activity with reaching to grab cones and stacking them up using L UE. Cues to scan to find cones. Balance Retraining Sitting: Static, Midline orientation (comment), Reaching through moderate excursions Static Standing Balance: Static standing, Midline orientation, Lateral weight shifts Supine Exercise - Side Addressed: Bilateral Supine Exercise: AAROM all planes/motions, Ankle pumps, Heel slides Exercise Mode: Active assistance (comment) Sets/Repetitions: 1x15 Seated Exercise - Side Addressed: Bilateral Sitting Surface: Wheelchair, Mat Seated Exercise: Ankle pumps, Marching, Long arc quads, Knee flexion, Hip abduction/adduction Exercise Mode: Active motion against gravity, Elastic band (comment) Seated Exercise Comments: orange band for knee flexion. Verbal, tactile, and visual cues for hip abd/add Patient/Family Education: Education on solid ankle foot orthosis Education Provided to: Dafneta and Learner's Response: Understood At the end of today's therapy session patient was left in bed with an appropriate call light within reach. Patient's needs and questions addressed during today's session. Contact monitoring: PPE used during therapy: Therapist was wearing the following PPE throughout entire session: surgicalmask and eye protection Patient was wearing a mask during therapy session: yes Family member/caregiver present was wearing a mask: yes Additional Staff Present During Session: Gym tech Assessment Patient continues to demonstrate improvement today with progressing to sit to stand transfers minimal assistance when not fatigued and moderate assistance when fatigued. She was also able to ambulate using kemi rail. Trialed low pivot transfers without removing arm rests to imitate current manual wheelchair. This was maximal assistance x1 and maximal assistance cues for hip placement and sequencing. Patient will need a wheelchair with removable arm rests for safety and to reduce caregiver burden in home setting. Patient demonstrates reduced dorsiflexion with R LE which reduces functional mobility. Will benefit from a custom solid ankle foot orthosis to improve L LE foot clearance and reduce potential injury. Patient continues to demonstrate improvement and will benefit from continued skilled physical therapy in the rehab setting to improve strength and functional mobility to reduce caregiver burden in home setting and to be able to return home. Barriers to Discharge Home: Current functional status, Safety concerns, Fall risk Barriers to Discharge Comments: Requires assist of two for mobilizing Comorbid Conditions: Other (Comment), Cerebrovascular accident (see [facility] for full medical history) Personal Factors: Balance impairment, Communication deficit, Hand dominance, History of falls, Needsassistive device, Safety awareness Discharge Therapy Needs - PT: Ongoing skilled physical therapy Level of Care Needed - PT: Assistance with transfers (Comment), Assistance with walking and moving around the home, Assistance with bed mobility, Cognitive assistance needed Equipment Recommended - PT: Other (Comment), Wheelchair (Shannan Stedy may be beneficial for transfers/etc.; patient only has standard manual wheelchair available, may benefit from ordering custom wheelchair) Functional Goals and Timeframes: PT Goal #1: Patient and spouse will be able to perform bed mobility using no hospital bed features with Min A x1 in order to increase independence in home. PT Goal #1 Date: 09/12/21 PT Goal #1 Status: Progressing PT Goal #2: Patient will be able to complete sit to/from stand transfer using Shannan Stedy or most appropriate gait device with Min A x1 in order to improve household mobility. PT Goal #2 Date: 09/12/21 PT Goal #2 Status: Advanced PT Goal #3: At discharge, patient will be able to perform stand pivot transfer using least restrictive device with Mod A x1 in order to improve household mobility. PT Goal #3 Date: 09/19/21 PT Goal #3 Status: Progressing PT Goal #4: Patient will demonstrate ability to maintain unsupported sitting at least 10 minutes to improve mobility and safety. PT Goal #4 Date: 09/19/21 PT Goal #4 Status: Achieved Progress: Progressing toward goals Plan Patient agrees with the plan of care and goals. Treatment Plan: PT Frequency: 6 times per week PT Amount: 2 visits per day PT Inpatient Duration : Until goals are met or hospital discharge Plan: Continue with current plan PT Plan Comments: Continue progression towards improved participation and safety with functional mobility. Progress towards mobility with Ax1 with caregiver training. Treatment interventions may include: Treatment/Interventions: Therapeutic exercise, Therapeutic functional activity, Neuromuscular re-education, Gait training, Self-care/home management, Orthosis [id number] SUPERVISOR COATING Visit Trackin Time Spent with Patient Therapeutic Interventions Neuromuscular Re-Education (min): 12 min Therapeutic Activity (min): 52 min Therapeutic Exercise (min): 26 min Time Tracking Total Timed Units (min): 90 min Total Treatment Time (min): 90 min PT Individual : 90 Minutes Femi FranzTRico Associated attestation - Margi Velasco P.T., D.P.T. - 09/18/2021 7:58 AM CDT This therapist has reviewed all documentation and supervised today's session. This therapist agrees with the plan of care developed in collaboration with the patient. Fanny Deal M.S., O.T. - 09/16/2021 8:34 AM CDT Occupational Therapy Rehabilitation [facility] Inpatient Progress Note SUBJECTIVE Patient's Name: Aurora Langley Reason for Referral: OT Evaluate and Treat, IRF Medical Diagnosis: 1. Lack Of Coordination 2. Decline Functional Status 3. Imbalance Non Orthopedic 4. Weakness General 5. Unsteadiness Gait Disorder Non Orthopedic History of Present Illness: Patient is s/p L2-L5 laminectomies for lumbar stenosis with gait instability by Dr. 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 Onset Date: 09/02/21 Patient/Caregiver Goals: Be able to complete cares with support of spouse to return home Patient Comments: Patient agreeable to occupational therapy with present. Patient required more encouragement in the afternoon when absent; patient became more engaged after therapist called on the phone. Therapist was unable to initiate iPAd copier repair technician due to technical difficulties. Precautions Other Precautions: fall, history of TBI, expressive aphasia, no functional use of RUE, R inattention, uses R AFO and knee brace for ambulation Fall Risk (65 and older) Fall in the last 12 months: Yes Did you have an injury with the fall?: No Are you fearful of falling?: Yes OBJECTIVE Pain: No pain indicated this date. Vitals: Not indicated at this time Therapeutic Activity Facilitated sit<>stands with use of grab bar of SaraStedy to progress with stability for donning/doffing pants. Patient's present and participating well. Instructed and demonstrated R knee blocking and foot placement to promote upright posture. Patient performed 2 sit<>stands; during second trial, patient was able to offload left hand and remain upright with minimum assistance x1 for stability. updated therapist regarding discharge planning and home setup. As it is, patient and husbandbelieve their house is setup for safe discharge. Patient has been using Depends at night and during the day in the case of urinary incontinence. Patient's shared that he is thrilled with the progress thus far and is hopeful that she may be able to stay beyond September 22 for optimal safety at home. Therapist thanked patient and for advocating for what they think will help progress patient and stated that it will be discussed in rounds. Therapeutic Exercise Facilitated continued upper body strengthening of LUE to transfer skills needed for safe functional transfers with grab bars, SaraStedy, and railings. Emphasized shoulder flexion, abduction, and scapular retraction. Patient tolerated 10 repetitions of each before discarding resistance band and stating No. I miss my . Therapist unable to re-engage patient in exercises; discontinued. Functional Transfers Patient performed low-pivot transfer towards the left with maximum assistance today with help for foot placement and tactile cues for hand placement. Patient declined offer to help readjust hips from sacral sitting to achieve a more upright posture. Patient has otherwise been using a SarModaboundy x1-2. Orthosis Management Patient agreeable to donning orthosis for spasticity and joint management of RUE. Patient tolerated therapist provided total assist to don orthosis, though she requested that therapist keep watch on despite concern regarding skin irritation. Therapist provided brief, gentle passive range of motion of RUE while in orthosis, emphasizing elbow flexion/extension and supination/pronation. At the end of today's therapy session patient was left seated in bedside chair with an appropriate call light within reach. Patient's needs and questions addressed during today's session. Contact monitoring: PPE used during therapy: Therapist was wearing the following PPE throughout entire session: surgicalmask and eye protection Patient was wearing a mask during therapy session: no Family member/caregiver present was wearing a mask: yes Assessment Patient is progressing with functional skills needed to perform activities of daily living, though she required increased encouragement to participate in therapy this afternoon. Today, patient was ableto perform sit<>stand with min- moderate assistance x1 and R-knee blocking to progress participation and safety during LB dressing and toileting. Patient is currently dependent with her all of herself-cares due to BLE weakness, decreased activity tolerance, and impaired functional balance. Patient continues to benefit from skilled occupational therapy services to progress functional performanceand participation in daily tasks while optimizing safety for both patient and (primary caregiver). Barriers to Discharge Home: Current functional status, Safety concerns, Fall risk Barriers to Discharge Comments: Requires assist of two for mobilizing Comorbid Conditions: Other (Comment), Cerebrovascular accident (see [facility] for full medical history) Personal Factors: Balance impairment, Communication deficit, Hand dominance, History of falls, Needsassistive device, Safety awareness Discharge Therapy Needs - OT: Ongoing skilled occupational therapy Level of Care Needed - OT: Assistance with toileting, Assistance with toilet/shower transfers, Assistance with medication set up/administration, Assistance with showering/bathing, Assistance with dressing, Physical assistance needed, Assistance with meal preparation, Assistance with student financial services counselor, Assistance with transportation, Assistance with housekeeping, Assistance with shopping, Cognitiveassistance needed, Assistance with eating/feeding Functional Goals and Timeframes: OT Goal #1: NEW STG: Pt will complete stand pivot commode transfer with minimal assistance x1 and use of adaptive equipment as needed. OT Goal #1 Status: Advanced OT Goal #2: STG: Patient will complete LB dressing with use of adaptive equipment with moderate assist of 1. OT Goal #2 Status: Progressing OT Goal #3: STG: Pt will be able to maintain standing with adaptive setup and moderate assistance toallow caregiver to safely assist with clothing management for self cares and to participate in grooming tasks. (4/4 - requiring assist x2, 1 for moderate to max assist for standing balance and 1 for clothing management) OT Goal #3 Status: Progressing OT Goal #4: LTG: Pt's spouse will verbalize understanding on safe mechanics and DME for patient to continue to participate with ADL cares. OT Goal #4 Status: Progressing Progress: Progressing toward goals Plan Patient agrees with the plan of care and goals. Treatment Plan: OT Frequency: 6 times per week OT Amount: 2 visits per day OT Inpatient Duration : Until goals are met or hospital discharge Plan: Continue with current plan Treatment interventions may include: Treatment Interventions: Therapeutic exercise, Therapeutic functional activity, Neuromuscular re-education, Self-care/home management, Manual therapy Therapeutic Interventions Home Management Training (min): 15 min Therapeutic Activity (min): 60 min Therapeutic Exercise (min): 15 min Time Tracking Total Timed Units (min): 90 min Total Treatment Time (min): 90 min OT Individual: 90 Minutes Fanny Deal M.S., O.T. Niyah Early M.D. - 09/16/2021 7:22 AM CDT SUBJECTIVE Mrs. Aurora Langley is a 76-year-old, right-handed, [place]-speaking woman with past medical history of TBI with residual posttraumatic epilepsy, right spastic hemiparesis and expressive aphasia s/p SKY LINE YARDER shunt (1995) and lumbar spinal stenosis now status post L2-L5 lumbar laminectomy on 09/02/[address] Castellon. She is admitted to acute inpatient rehabilitation for lower extremity weakness and impairments in gait and ADL performance. This morning, Aurora notes that she slept well and was awaiting breakfast at the time of my assessment. She and Kirk were pleased to report that she had taken a few steps in the parallel bars with physical therapy yesterday. Transfers are progressing, at times no longer requiring use of the Shannan Steady. Aurora describes that her overnight incontinence is volitional, it is easier to use the adult diaperrather than get out of bed to transfer. All questions and concerns were addressed to the best of my ability. Multidisciplinary discharge rounds: I participated in multidisciplinary bedside rounds today. Attendees included: patient, family member(s), physician, bedside nurse, lawn caretaker, physical therapist, occupational therapist and Social work. Medical updates were provided. Also discussed was progress toward patient centered goals, ongoing rehabilitation needs and dismissal planning. OBJECTIVE Temperature: [36.7 ??C-36.9 ??C] 36.9 ??C Resp Rate: [16-18] 16 Blood Pressure: (102-120)/(54-64) 118/64 SpO2: [93 %-96 %] 93 % Physical Exam: General: Well-appearing woman seated up to chair awaiting breakfast. Seated comfortably, dressed andready for the day. HEENT: Normocephalic, atraumatic. Hearing grossly intact. Cardiovascular: Hemodynamically stable Respiratory: No dyspnea or use of accessory muscles. Respiratory rate as noted above in vital signs. Skin: Incision visualized this morning, appropriate interval healing, ready for staple removal today ASSESSMENT / PLAN Mrs. Aurora Langley is a 76-year-old, right-handed, [place]-speaking woman with past medical history of TBI with residual posttraumatic epilepsy, right spastic hemiparesis and expressive aphasia s/p SKY LINE YARDER shunt (1995) and lumbar spinal stenosis now status post L2-L5 lumbar laminectomy on 09/02/[address] Castellon. She is admitted to acute inpatient rehabilitation for lower extremity weakness and impairments in gait and ADL performance. Plan for Today (09/16/21): - Remove aries today - continue with multidisciplinary inpatient rehabilitation - monitor for neurologic change including possible seizure activity. # Lumbar spinal stenosis with neurogenic claudication s/p L2-L5 laminectomy (09/02/21) # Progressive lower limb weakness # Gait unsteadiness # History of TBI resulting in spastic right hemiparesis, posttraumatic epilepsy and expressive aphasia - Comprehensive PT/OT - Restrictions: 15-20 pound lifting restriction and no heavy lifting, twisting or bending for 6 weeks post-op which will be October 14 - Pain control regimen includes: Tylenol 1000 mg every 6 hours as needed - Continue home seizure medication regimen: carbamazepine 500 mg twice daily levetiracetam 500 mg every morning, 250 mg with lunch, 500 mg every evening folic acid 1,000 mcg daily - Neurosurgery will coordinate outpatient follow-up - Neurology consult recommended continuing at home doses of carbamazepine and levetiracetam - has diazepam PRN to be given only if having seizure-like activity for >5 minutes (one eye closed, face-glossing over, right eyelid twitching, and NOT responding or following commands), can be given 2x for a total of 10 mg if not responsive to first dose ?? # Hyperlipidemia - Continue home atorvastatin 10 mg every 48 hours - Continue home aspirin 81 mg daily ?? FULL CODE as discussed with patient. Surgical Incision Bantam: remove today Diet: Regular DVT prophylaxis: Lovenox Bowel: bowel medication regimen as needed Bladder: currently voiding at her baseline Disposition: anticipate discharge September 22; goal to home with family support Please contact the [facility] [place] [phone] with any questions or concerns. ?? Niyah Early M.D. PM&R, PGY-2 Associated attestation - Teddy Avendano M.D., Ph.D. - 09/16/2021 4:51 PM CDT I saw and evaluated the patient, participating in the trinh portions of the service. I reviewed the resident/fellow???s note. I agree with the resident/fellow???s findings and plan. Ms. Langley is capable of participating in rehabilitation. She continues to progress towards functional independence in the area(s) of mobility, self-care, and communication and will benefit from ongoing intensive inpatient rehabilitation. I have met with the patient and participated in her in room team conference. Ms. Langley was accompanied by her and both for very happy with her progress and with the fact that she was able totake a few steps yesterday in the parallel bars. Transfers are also improving with the therapist andnurses working on pivots. BP 146/86 (BP Location: Left arm;Upper) Pulse 83 Temp 36.7 ??C (Oral) Resp 16 Ht 172.2 cm Wt 64.9 kg SpO2 93% BMI 21.89 kg/m?? No results found for this or any previous visit (from the past 24 hour(s)). Intake/Output Summary (Last 24 hours) at 09/16/2021 1646 Last data filed at 09/16/2021 1500 Gross per 24 hour Intake 925 ml Output 1276 ml Net -351 ml Wt 64.9 kg initial weight 67.6 kg Ms. Langley is making excellent progress. We will continue with our program and work for discharge home early next week with plans for continued outpatient therapy. Mr. Langley tells us that they have a physical therapist that they have been working with for a long time and we will arrange for her outpatient PT to be with him. Teddy Avendano M.D., Ph.D. PPE use information for possible contact monitoring: PPE used during visit: Provider was wearing a mask and eye protection throughout entire session. Patient was NOT wearing mask during entire session. Denise Macedo P.TJimenez. - 09/15/2021 3:51 PM CDT Physical Therapy Rehabilitation [facility] Inpatient Treatment SUBJECTIVE Patient's Name: Aurora Langley Reason for Referral: PT Evaluate and Treat: Inpatient rehabilitation Medical Diagnosis: 1. Lack Of Coordination 2. Decline Functional Status 3. Imbalance Non Orthopedic 4. Weakness General History of Present Illness: Patient is s/p L2-L5 laminectomies for lumbar stenosis with gait instability by Dr. 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 Onset Date: 09/02/21 Patient/Caregiver Goals: Be able to complete cares with support of spouse to return home Precautions Other Precautions: fall, history of TBI, expressive aphasia, no functional use of RUE, R inattention, uses R AFO and knee brace for ambulation OBJECTIVE Pain: Did not state pain Vitals: Not indicated at this time Bed Mobility - Supine to Sit # of Assistants: 1 Level of Assistance: Supervision/Set-up Device: Bed rail Bed Mobility - Sit to Supine # of Assistants: 1 Level of Assistance: Minimal assistance Device: Bed rail Cuing: Tactile Comments: light assistance with R LE and positioning on bed Sit to Stand Transfers # of Assistants: 1 Transfer Surface: Wheelchair, Therapy mat, Chair, Bed Transfer Equipment: Gait belt, Sit to stand machine, Parallel bars (Shannan Stedy) Level of Assistance: Moderate assistance Assessment/Delivery: Assessed, Instructed, Therapist assisted, Facilitated Comments: Massed practis of sit to stand transfers using shannan stedy, and // bars. When using Shannan Stedy, requires cues to reach left hand for cross bar and assistance for positioning feet. Moderate x1 to power up to stand from lower seat heights (wheelchair), contact guard to minimal assistance to stand from paddles or raised therapy mat. Additionally facilitated transfers within parallel bars, usingleft rail only. PT assisting with blocking knees and helping at trunk via gait belt, with verbal cues throughout for sequencing. Stand to Sit Transfers # of Assistants: 1 Transfer Surface: Wheelchair, Chair, Therapy mat Transfer Equipment: Gait belt, Sit to stand machine, Parallel bars (Shannan Stedy) Level of Assistance: Moderate assistance Assessment/Delivery: Assessed, Instructed, Therapist assisted, Facilitated Comments: Facilitation for slow controlled eccentric descent. facilitation for hip placement Bed, Chair, Wheelchair Transfers # of Assistants: 1 Transfer Surface: Wheelchair, Chair (Therapy mat) Transfer Approach: To the left, Low/squat pivot Transfer Equipment: No device Level of Assistance: Maximal assistance Assessment/Delivery: Therapist assisted, Assessed, Instructed, Educated, Facilitated Gait Assessment/Training Distance (m): 1 m Surface: Even Device: No device, Gait belt, Parallel bars # of Assistants: 3 (third for wheelchair follow) Level of Assistance: Maximal assistance Quality/Pattern: Scissoring, Decreased heel strike, Decreased stance time R, Decreased base of support Assessment of Gait: unable to wt shift, downward gaze, knee R buckled, forward flexed posture, L UE support on // bar Cueing Provided: Verbal, Tactile Training/Intervention: cues for gait mechanics, facilitation with weight shifts, hip and knee extension. Response: tolerated well, fatigued PT Neuromuscular Re-education Neuromuscular Re-education 1: Sitting balance with L UE coordination with balloon volleyball tappingballoon back and forth. Patient demonstrated difficulty hitting target, does better with non moving target. Neuromuscular Re-education 2: Sitting balance reaching with L UE outside base of support to grab cones and setting them down beside her. Reaching in all directions and down to the floor. contact guard assistance for safety, one time required cues to return to midline Balance Retraining Sitting: Static, Midline orientation (comment), Reaching through maximal excursions, Anterior/posterior leans, Lateral leans Static Standing Balance: Static standing, Midline orientation, Lateral weight shifts Supine Exercise - Side Addressed: Bilateral Supine Exercise: Heel slides, AAROM all planes/motions, Hip ABduction/ADduction, Short arc quads Exercise Mode: Active assistance (comment) Seated Exercise - Side Addressed: Bilateral Sitting Surface: Wheelchair, Mat Seated Exercise: Ankle pumps, Marching, Long arc quads, Knee flexion, Hip abduction/adduction Exercise Mode: Active motion against gravity, Elastic band (comment) Seated Exercise Comments: orange band for knee flexion Team Conference Updates: Additional Team Conference Comments (PT): She requires Max A x1 for bed mobility, Max A to mod a x1 with Shannan Stedy for sit to/from stand from low surfaces and contact guard assistance from high surfaces. is present, supportive, and actively participates in her care. Will probably need to purch ase lightweight kemi height wheelchair. is looking into purchasing Shannan Stedy. Wheelchair Propulsion #1 Propulsion Type : Manual Method: Left lower extremity, Left upper extremity Terrain Description: Smooth level surface Level of Assistance: Minimal assistance Assessment/Treatment: Instructed, Educated, Therapist assisted Propulsion Comments: Work on wheelchair propulsion starting with L LE, then progressing to coordinating LUE and LLE for optimal propulsion. Patient required tactile, visual, and verbal cues to understand sequencing. Patient able to propel approximately 10 ft unassisted Patient/Family Education: Shannan Stedy equipment for purchase including costs, brands, and vendors andwheelchair needs. Education Provided to: Gitta and Learner's Response: Able to demonstrate and Requires continued education At the end of today's therapy session patient was left in bed with an appropriate call light within reach. Patient's needs and questions addressed during today's session. Contact monitoring: PPE used during therapy: Therapist was wearing the following PPE throughout entire session: surgicalmask and eye protection Patient was wearing a mask during therapy session: yes Family member/caregiver present was wearing a mask: yes Additional Staff Present During Session: Gym techs Assessment Patient alert and working hard this date. She remains agreeable to all therapy activities and exercises. She demonstrates continued incoordination and reduced strength bilaterally with R>L. She was able to progress to taking steps in the parallel bars with max x2 with wheelchair follow, facilitation with weight shifts and hip and knee extension. Patient demonstrated improvement with bed mobility able to lie sit to supine with minimal assistance and supine to sit with supervision. Patient will benefit from continued skilled physical therapy interventions for strength, neuromuscular re-education, and functional mobility to reduce caregiver burden. Barriers to Discharge Home: Current functional status, Safety concerns, Fall risk Barriers to Discharge Comments: Requires assist of two for mobilizing Comorbid Conditions: Other (Comment), Cerebrovascular accident (see [facility] for full medical history) Personal Factors: Balance impairment, Communication deficit, Hand dominance, History of falls, Needsassistive device, Safety awareness Discharge Therapy Needs - PT: Ongoing skilled physical therapy Level of Care Needed - PT: Assistance with transfers (Comment), Assistance with walking and moving around the home, Assistance with bed mobility, Cognitive assistance needed Equipment Recommended - PT: Other (Comment), Wheelchair (Shannan Stedy may be beneficial for transfers/etc.; patient only has standard manual wheelchair available, may benefit from ordering custom wheelchair) Functional Goals and Timeframes: PT Goal #1: Patient and spouse will be able to perform bed mobility using no hospital bed features with Min A x1 in order to increase independence in home. PT Goal #1 Date: 09/12/21 PT Goal #1 Status: Progressing PT Goal #2: Patient will be able to complete sit to/from stand transfer using Shannan Stedy or most appropriate gait device with Min A x1 in order to improve household mobility. PT Goal #2 Date: 09/12/21 PT Goal #2 Status: Advanced PT Goal #3: At discharge, patient will be able to perform stand pivot transfer using least restrictive device with Mod A x1 in order to improve household mobility. PT Goal #3 Date: 09/19/21 PT Goal #3 Status: Progressing PT Goal #4: Patient will demonstrate ability to maintain unsupported sitting at least 10 minutes to improve mobility and safety. PT Goal #4 Date: 09/19/21 PT Goal #4 Status: Achieved Progress: Progressing toward goals Plan Patient agrees with the plan of care and goals. Treatment Plan: PT Frequency: 6 times per week PT Amount: 2 visits per day PT Inpatient Duration : Until goals are met or hospital discharge Plan: Continue with current plan PT Plan Comments: Continue progression towards improved participation and safety with functional mobility. Progress towards mobility with Ax1 with caregiver training. Treatment interventions may include: Treatment/Interventions: Therapeutic exercise, Therapeutic functional activity, Neuromuscular re-education, Gait training, Self-care/home management, Orthosis [id number] SUPER[employer]OR [employer] Visit Trackin Time Spent with Patient Therapeutic Interventions Neuromuscular Re-Education (min): 30 min Therapeutic Activity (min): 30 min Therapeutic Exercise (min): 30 min Time Tracking Total Timed Units (min): 90 min Total Treatment Time (min): 90 min PT Individual : 90 Minutes Denise Macedo P.TRico Kenya Major R.N. - 09/15/2021 2:09 PM CDT [facility] Wound RN consulted to assess Aurora Langley skin alterations. Wound assessment, pain, and [place] noted in the flowsheet. Unable to obtain consent for photography. No skin concerns at this time. History: Aurora Langley is a 76 y.o. female past medical history of TBI with residual posttraumatic epilepsy, right spastic hemiparesis and expressive aphasia s/p SKY LINE YARDER shunt (1995) and lumbar spinal stenosis now status post L2-L5 lumbar laminectomy on 09/02/2021. Assessment: The patient was assessed in bed, assist of one. The patient is agreeable to assessment, no reports of pain during assessment. sales service promoter asked to assess skin breakdown located around patient's perirectal area. On assessment area is pink and intact, no skin concerns at this time. Floor RN to apply z-guard to area as needed. Primary service managing surgical incision, remain dry and intact. Head to toe skin assessment completed and no other concerns Recommended interventions for pressure redistribution and shear reduction: Offload heels on pillows at all times when in bed. Full 30 degree turns side to side every 2 hours with supine positioning only for meals. Micro turn 15 degrees every 1 hour side to side until the patient can tolerate full 30 degree turns.Then turn side to side every 2 hours with supine positioning only for meals. Keep the HOB below 30 degrees except for meals unless medically contraindicated. Apply a prophylactic Mepilex?? Border Sacrum dressing to cover the coccyx/sacral area. Lift twice daily to assess the skin when used for prevention. Lift once daily to assess when used for wound care. Assess and pad the skin under and surrounding the medical devices with a prophylactic foam dressing. Utilize breathable underpads while in bed. Adult brief should only be worn while ambulating or in the chair. Utilize a ROHO or static air cushion when up to the chair. Reposition at least every hour while in the chair. Recommended interventions for moisture control: Utilize the breathable incontinence underpads while in bed. Adult briefs should only be worn while ambulating or in the chair. Cleanse with foaming cleanser or wipes after each incontinence episode. Apply Z-Guard?? Barrier Cream. Reapply after each incontinence episode. Education: Discussed the plan of care with the patient and nursing. They agree to the plan. The WOC RN will sign-off. Please place a wound care consult for any new concerns. Electronically signed by: Kenya Major R.N. 09/15/21 2:10 PM CDT Teddy Avendano M.D., Ph.D. - 09/15/2021 11:20 AM CDT Physical Medicine and Rehabilitation Interdisciplinary Team Conference [facility] 09/15/2021 11:20 AM CDT Patient Name: Aurora Langley Admit Date/Time: 09/04/2021 3:09 PM Date of : 1945 Sex: Female Room/Bed: 215/215-P Etiologic Diagnosis: Laminectomy Lumbar Status Post Impairment Group: Orthopaedic Disorders Payor: Payor: MEDICARE / Plan: MEDICARE A AND B / Product Type: Medicare / Anticipated Discharge Date: 09/22/21 Rehab Team Conference Participation Physician Talent Buyer: Dr. Teddy Avendano Senior Resident Present: Dr. Salvatore Lou Nursing Talent Buyer: Sam Barnes RN CM/SW Talent Buyer: MICAH Benjamin CM/SW Second Talent Buyer: Hellen Odell PATIENT TRANSPORTATION DRIVER PT Talent Buyer: Annabel Richey, PT OT Talent Buyer: Marianela Veliz OT Other (Discipline and Name): Dr. Belkys Paul, PMR Brain Fellow OT Goal #1: NEW STG: Pt will complete stand pivot commode transfer with minimal assistance x1 and use of adaptive equipment as needed. OT Goal #2: STG: Patient will complete LB dressing with use of adaptive equipment with moderate assist of 1. OT Goal #3: STG: Pt will be able to maintain standing with adaptive setup and moderate assistance toallow caregiver to safely assist with clothing management for self cares and to participate in grooming tasks. (4/4 - requiring assist x2, 1 for moderate to max assist for standing balance and 1 for clothing management) OT Goal #4: LTG: Pt's spouse will verbalize understanding on safe mechanics and DME for patient to continue to participate with ADL cares. PT Goal #1: Patient and spouse will be able to perform bed mobility using no hospital bed features with Min A x1 in order to increase independence in home. PT Goal #2: Patient will be able to complete sit to/from stand transfer using Shannan Stedy or most appropriate gait device with Min A x1 in order to improve household mobility. PT Goal #3: At discharge, patient will be able to perform stand pivot transfer using least restrictive device with Mod A x1 in order to improve household mobility. PT Goal #4: Patient will demonstrate ability to maintain unsupported sitting at least 10 minutes to improve mobility and safety. Progress Toward Goals Additional Team Conference Comments (RN): Sleeping well at night, using Calllight when spouse not present, no pain issues, urinary incontinence at times, Shannan Steady for transfers Additional Team Conference Comments (PT): She requires Max A x1 for bed mobility, Max A to mod a x1 with Shannan Stedy for sit to/from stand from low surfaces and contact guard assistance from high surfaces. is present, supportive, and actively participates in her care. Will probably need to purch ase lightweight kemi height wheelchair. is looking into purchasing Shannan Stedy. Education Provided (PT): Shannan Stedy equipment for purchase including costs, brands, and vendors and wheelchair needs. Additional Team Conference Comments (OT): Patient is now performing low/stand pivot transfers x1 moderate to max assist with verbal cuing for hand placement, pivot, and sequencing of the transfer. Whenincorporating clothing management into the task, currently benefits from having a second person to assist patient with managing clothing up/down over her hips secondary to poor balance, posture, and fatigue. continues to be involved and appears to be supportive. Education Provided (OT): Ongoing education on the role of OT and the OT plan of care. Ongoing caregiver education for transfers and cares for the patient to optimize safety and independence. Right handresting hand orthosis wear and care schedule, as well as precautions when using the orthosis. Discharge Equipment Recommended Adaptive Equipment - OT: Other (Comment) (continue to assess) Equipment Recommended - PT: Other (Comment), Wheelchair (Shannan Stedy may be beneficial for transfers/etc.; patient only has standard manual wheelchair available, may benefit from ordering custom wheelchair) Equipment Vendor - PT: pending ongoing assessment, Shannan Stedy may be beneficial for transfers/etc. Patient / Family Goals The goals from interdisciplinary conference were discussed with patient, family. Discharge Planning Discharge Planning (Team Conference) Barriers To Discharge: Comorbidities, Equipment, Ability to acquire knowledge Strengths: Previous rehab experience, Support of immediate family, Attitude of family, Attitude of self Anticipated Discharge Destination: Home or Self Care Assistance Recommended after Discharge: 24 hour physical assistance Discharged Living With: Family and or relatives Support Systems: Spouse Recommended Discharge Services: Physical Therapy, Occupational Therapy, PM&R Physician Follow-up, Primary Care Physician Follow-up Does the patient need discharge transport arranged?: No Physician Summary The team discussed the discharge date, destination and assistance required after discharge, and reviewed the written plan of care. The discharge date remains the same. 09/22/21 The patient's progress towards rehabilitation goals and associated barriers to discharge were discussed related to activities of daily living, discharge planning, education, equipment, follow-up after discharge, mobility, medical issues, psychosocial issues, safety, skin / wound, transfers, bladder man agement, bowel management. No changes to goals needed.. Stephanie Francois M.D. - 09/15/2021 9:05 AM CDT Brain Rehabilitation Medicine Fellow ITC Progress Note Ms. Langley was seen this morning at bedside with her . He was assisting her in having breakfast. She is awake and in good spirits today. He notes that she had a loose stool last night and was concerned, but she has no discomfort and he was told it was likely her MiraLAX. He is very grateful to know about this medication as she has struggled with constipation for years. OBJECTIVE PHYSICAL EXAMINATION General Appearance: Well developed, no acute distress. Skin: No rashes, lesions, or ecchymoses noted. Lungs: Normal respiratory effort. Extremities: Warm and well perfused, no edema noted. Neuro Exam: awake, alert, reflexive short speech but appropriate, moving her left side, right arm with flexion contracture Interdisciplinary team conference update: I participated in the patient's interdisciplinary team conference today along with my colleagues from physical therapy, occupational therapy, speech and language pathology, nursing, nursing care coordination, social work, and rehabilitation physician staff. - In PT: Working on standing with the Shannan Biswas, needs Mod-MaxA for this. More ModA when has something to try and pull herself up. - In OT: Working on her home commode. Mod-Max A with one person for transfers. She needs 2 people right now for dressing, but has a pole at home that she holds onto. Still right now would require two people for assistance. Her is working on assisting with emil-care during toileting, but has not yet tried physically assisting her with transfer yet. 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 Langley is doing well on her current medications. She has continued to have pain well controlled without pain medications and her incision is healing well. She has not had any further episodes concerning for seizure. DME Need: Shannan Biswas, Bathroom equipment TBD. Expected Supervision upon discharge: 03/01 physical assistance Expected Date of Discharge: 09/22/21 The patient requires, and is capable of participating in, an intensive and coordinated interdisciplinary acute inpatient rehabilitation program. The patient requires rehabilitation physician visits to coordinate rehabilitation care and monitor medical conditions. Risks for medical complication includewound infection, seizure, brain injury, infection, bowel obstruction, and falls. The patient's rehabilitation goals and medical complexity cannot adequately be managed in a less intensive setting. PPE used during visit: Provider was wearing a mask throughout entire session. Patient was NOT wearing mask during entire session. Additional person present and PPE use: spouse, not wearing PPE. Belkys Paul M.D. Fellow, Brain Injury Medicine Physical Medicine & Rehabilitation Niyah Early M.D. - 09/15/2021 7:15 AM CDT SUBJECTIVE Mrs. Aurora Langley is a 76-year-old, right-handed, [place]-speaking woman with past medical history of TBI with residual posttraumatic epilepsy, right spastic hemiparesis and expressive aphasia s/p SKY LINE YARDER shunt (1995) and lumbar spinal stenosis now status post L2-L5 lumbar laminectomy on 09/02/[address] Castellon. She is admitted to acute inpatient rehabilitation for lower extremity weakness and impairments in gait and ADL performance. Yesterday afternoon, Aurora was feeling worn out, so requested a break after lunch. She was able to rest for a bit and we have now adjusted her schedule to block some time out for this moving forward. Also, she had a loose bowel movement yesterday evening, which is atypical for her. She denies any abdominal discomfort. She has been receiving scheduled Senna and MiraLAX, which is not her typical home regimen. She confirms that she feels rested this morning and is awaiting her breakfast. All questions and concerns were addressed to the best of my ability. OBJECTIVE Temperature: [36.9 ??C-37 ??C] 37 ??C Resp Rate: [15-16] 16 Blood Pressure: (114-139)/(56-78) 114/56 SpO2: [94 %-97 %] 94 % Weight: [64.9 kg] 64.9 kg BMI (Calculated): [21.9 kg/m??] 21.9 kg/m?? Physical Exam: General: Well-appearing woman seated up to chair awaiting breakfast. Seated comfortably, dressed andready for the day. HEENT: Normocephalic, atraumatic. Hearing grossly intact. Cardiovascular: Hemodynamically stable Respiratory: No dyspnea or use of accessory muscles. Respiratory rate as noted above in vital signs. Abdomen: Soft, non-tender. ASSESSMENT / PLAN Mrs. Aurora Langley is a 76-year-old, right-handed, [place]-speaking woman with past medical history of TBI with residual posttraumatic epilepsy, right spastic hemiparesis and expressive aphasia s/p SKY LINE YARDER shunt (1995) and lumbar spinal stenosis now status post L2-L5 lumbar laminectomy on 09/02/[address] Castellon. She is admitted to acute inpatient rehabilitation for lower extremity weakness and impairments in gait and ADL performance. Plan for Today (09/14/21): - Transitioned MiraLAX to as needed, continue Senna daily with lunch - continue with multidisciplinary inpatient rehabilitation - monitor for neurologic change including possible seizure activity. # Lumbar spinal stenosis with neurogenic claudication s/p L2-L5 laminectomy (09/02/21) # Progressive lower limb weakness # Gait unsteadiness # History of TBI resulting in spastic right hemiparesis, posttraumatic epilepsy and expressive aphasia - Comprehensive PT/OT - Restrictions: 15-20 pound lifting restriction and no heavy lifting, twisting or bending for 6 weeks post-op which will be October 14 - Pain control regimen includes: Tylenol 1000 mg every 6 hours as needed - Continue home seizure medication regimen: carbamazepine 500 mg twice daily levetiracetam 500 mg every morning, 250 mg with lunch, 500 mg every evening folic acid 1,000 mcg daily - Neurosurgery will coordinate outpatient follow-up - Neurology consult recommended continuing at home doses of carbamazepine and levetiracetam - has diazepam PRN to be given only if having seizure-like activity for >5 minutes (one eye closed, face-glossing over, right eyelid twitching, and NOT responding or following commands), can be given 2x for a total of 10 mg if not responsive to first dose ?? # Hyperlipidemia - Continue home atorvastatin 10 mg every 48 hours - Continue home aspirin 81 mg daily ?? FULL CODE as discussed with patient. Surgical Incision Aries: can be removed 14 days post-op (09/16) Diet: Regular DVT prophylaxis: Lovenox Bowel: bowel medication regimen as needed Bladder: currently voiding at her baseline Disposition: anticipate discharge September 22; goal to home with family support [place] PM[place] [phone] with any questions or concerns. ?? Niyah Early M.D. PM&R, PGY-2 Associated attestation - Teddy Avendano M.D., Ph.D. - 09/15/2021 4:07 PM CDT I saw and evaluated the patient, participating in the trinh portions of the service. I reviewed the resident/fellow???s note. I agree with the resident/fellow???s findings and plan. Ms. Langley is capable of participating in rehabilitation. She continues to progress towards functional independence in the area(s) of mobility, self-care, and communication and will benefit from ongoing intensive inpatient rehabilitation. I have met with the patient, participated in her plan of care conference, and observed her occupational therapy. Ms. Langley had no new concerns and was participating chair based exercises during the portion of her OT session that I observed. She was able to elevate both her right and left knees whenin a sitting position but required multiple cues to elevate the right 1. Transfers have improved in quality to the point where she needs moderate to maximal assistance of 1. At home, she reports that she uses a vertical pole to assist in her balance when performing some of her ADLs. We will attempt toreplicate that situation here in the rehabilitation unit. BP 120/60 (BP Location: Left arm, Patient Position: Sitting) Pulse 82 Temp 36.8 ??C (Oral) Resp 16 Ht 172.2 cm Wt 64.9 kg SpO2 96% BMI 21.89 kg/m?? No results found for this or any previous visit (from the past 24 hour(s)). Intake/Output Summary (Last 24 hours) at 09/15/2021 1604 Last data filed at 09/15/2021 1300 Gross per 24 hour Intake 1455 ml Output 700 ml Net 755 ml Wt 64.9 kg initial weight 67.6 kg Ms. Langley is doing well given the comorbidity load that she has from her pre- existing hemiparesis. At home, she reports that she uses a vertical pole to assist in her balance when performing some ofher ADLs. We will attempt to replicate that approach here in the rehabilitation unit. We will continue with her program with the goal of discharge early next week and transitioning to outpatient therapy program. Teddy Avendano M.D., Ph.D. PPE use information for possible contact monitoring: PPE used during visit: Provider was wearing a mask and eye protection throughout entire session. Patient was wearing a mask throughout entire session. Carolina Veliz M.S., O.T. - 09/15/2021 7:01 AM CDT Occupational Therapy Rehabilitation [facility] Inpatient Progress Note SUBJECTIVE Patient's Name: Aurora Langley Reason for Referral: Occupational therapy treat Medical Diagnosis: 1. Lack Of Coordination 2. Decline Functional Status 3. Imbalance Non Orthopedic 4. Weakness General History of Present Illness: Patient is s/p L2-L5 laminectomies for lumbar stenosis with gait instability by Dr. 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 Precautions Other Precautions: fall, history of TBI, expressive aphasia, no functional use of RUE, R inattention, uses R AFO and knee brace for ambulation Fall Risk (65 and older) Fall in the last 12 months: Yes Did you have an injury with the fall?: No Are you fearful of falling?: Yes OBJECTIVE Pain: None indicated during OT session on this date. Vitals: Not indicated at this time Activities of daily living: Bed, Chair, Wheelchair Transfers # of Assistants: 1 Transfer Surface: Bed, Chair Transfer Approach: To the left Transfer Equipment: No device Level of Assistance: Moderate assistance to Maximal assistance Assessment/Delivery: Therapist assisted, Assessed, Instructed, Educated, Facilitated Toilet Transfers # of Assistants: 1-2 Transfer Surface: Commode Transfer Approach: To and from, Stand pivot, To the right, To the left Transfer Equipment: Grab bars Level of Assistance: Moderate assistance, Maximal assistance Assessment/Delivery: Assessed, Instructed, Therapist assisted, Facilitated Toilet Transfers Comments: Incorporation of Shannan Stedy handle to simulate the floor to ceiling grab bar that is installed in their home. Assist and cuing for hand placement on the bar, as well as on therapist's shoulder to assist with sit<>stand and pivot (avoiding hand placement on helper's neck per patient's tendency). Initial set up assist for feet to facilitate pivot. Spouse assisting patient with clothing management. Verbal cuing and facilitation at hips for posture and to increase hip and thoracic extension for tall standing. Toileting Toileting Location: Commode chair Toileting Delivery: Assessed, Facilitated Toileting Level of Assistance: Moderate assistance, Maximal assistance Toileting Comments: Toileting completed once during each 30 minute session on this date, with patient able to complete hygiene with set up assist. Spouse assisting patient with clothing management during 2/3 trials - patient able to initiate following cuing pulling pants and briefs up/down over her left hip. Patient able to initiate and complete emil-hygiene for urination. Verbal cuing and facilitation at hips for posture and to increase hip and thoracic extension for tall standing. When completing with x1 helper assist, max assist required for standing balance and clothing management. During PM session, patient initiated toilet hygiene without toilet paper or wipes. Required total assist for handhygiene. Without use of shannan stedy, requiring max assist x2 for bowel hygiene in standing position. Able to complete emil hygiene following urination with set up assist. Left Upper Extremity Exercises Exercise type: Resistive/strengthening Exercise Position: Seated Resistance Type: Elastic resistance band (orange; red for rows) Sets/Repetitions: 3 sets of 10 repetitions Cuing Provided: Verbal, Visual, Tactile Therapeutic Exercise Delivery: Assessed, Instructed, Educated, Therapist assisted, Facilitated Therapeutic Exercise Comments: Facilitation of patient and caregiver education and training for a LUE home exercise program in order to progress the patient's upper body strength required to progress her engagement and independence with transfers and self cares. Shoulder Specific Movements/Exercises: Flexion, Abduction (Extension/ rows) Elbow Specific Movements/Exercises: Flexion Therapeutic Activity: Engaged in various therapeutic activities targeting dynamic reaching and LUE strengthening in order to increase her functional strength and core stabilization required to safely engage in self cares and sit<>stands. Sit<>stand training: Engaged in massed repetition training for sit<>stands with use of vertical grab bar to simulate home set up and activity requirements to complete clothing management and hygiene for toileting. Requiring max assist, as well as hands on facilitation at hips to increase extension. Without blocking at the knees from the shannan stedy, patient exhibited difficulty attaining full tall standing with extension at knees. Unable to sustain standing at that time for >10 seconds. Team Conference Updates: Additional Team Conference Comments (OT): Patient is now performing low/stand pivot transfers x1 moderate to max assist with verbal cuing for hand placement, pivot, and sequencing of the transfer. Whenincorporating clothing management into the task, currently benefits from having a second person to assist patient with managing clothing up/down over her hips secondary to poor balance, posture, and fatigue. continues to be involved and appears to be supportive. Patient/Family Education: Ongoing education on the role of OT and the OT plan of care. Ongoing caregiver education for transfers and cares for the patient to optimize safety and independence. Right hand resting hand orthosis wear and care schedule, as well as precautions when using the orthosis. Education Provided to: Aurora and Kirk (spouse) Learner's Response: Requires cueing and Requires continued education At the end of today's therapy session patient was left seated in a wheelchair with a pressure relieving cushion with an appropriate call light within reach. Patient's needs and questions addressed during today's session. Contact monitoring: PPE used during therapy: Therapist was wearing the following PPE throughout entire session: surgicalmask, eye protection and gloves Patient was wearing a mask during therapy session: yes Family member/caregiver present was wearing a mask: yes Additional Staff Present During Session: None Assessment Patient is requiring moderate to max assist x1 for functional stand pivot transfers from chair<>commode and static sit<>stands, with additional shampoo assistant required for clothing management instanding prior to/ following toileting (consistent x2 person assist for toileting when performing without use of the shannan stedy). Will plan to continue progressing functional transfer training with patient and her spouse/caregiver in order to safely access the shower and other critical access points in their home, including bed<>bedside commode. Will continue to assess/progress her home exercise program as appropriate to increase her upper body strength required for functional transfers and ADL's. All of the above and previously listed impairments (please see EMR/ initial OT evaluation for further detail) significantly impact her ability to safely and independently complete activities of daily living and mobility. Patient requires skilled occupational therapy services to address listed deficits and to maximize safety and independence with overall occupational performance and participation prior to discharge. Barriers to Discharge Home: Current functional status, Safety concerns, Fall risk Barriers to Discharge Comments: Requires assist of two for mobilizing Comorbid Conditions: Other (Comment), Cerebrovascular accident (see [facility] for full medical history) Personal Factors: Balance impairment, Communication deficit, Hand dominance, History of falls, Needsassistive device, Safety awareness Discharge Therapy Needs - OT: Ongoing skilled occupational therapy Level of Care Needed - OT: Assistance with toileting, Assistance with toilet/shower transfers, Assistance with medication set up/administration, Assistance with showering/bathing, Assistance with dressing, Physical assistance needed, Assistance with meal preparation, Assistance with student financial services counselor, Assistance with transportation, Assistance with housekeeping, Assistance with shopping, Cognitiveassistance needed, Assistance with eating/feeding Functional Goals and Timeframes: OT Goal #1: NEW STG: Pt will complete stand pivot commode transfer with minimal assistance x1 and use of adaptive equipment as needed. OT Goal #1 Status: Advanced OT Goal #2: STG: Patient will complete LB dressing with use of adaptive equipment with moderate assist of 1. OT Goal #2 Status: Progressing OT Goal #3: STG: Pt will be able to maintain standing with adaptive setup and moderate assistance toallow caregiver to safely assist with clothing management for self cares and to participate in grooming tasks. (4/4 - requiring assist x2, 1 for moderate to max assist for standing balance and 1 for clothing management) OT Goal #3 Status: Progressing OT Goal #4: LTG: Pt's spouse will verbalize understanding on safe mechanics and DME for patient to continue to participate with ADL cares. OT Goal #4 Status: Progressing Progress: Progressing toward goals Plan Patient agrees with the plan of care and goals. Treatment Plan: OT Frequency: 6 times per week OT Amount: 2 visits per day OT Inpatient Duration : Until goals are met or hospital discharge Plan: Continue with current plan Treatment interventions may include: Treatment Interventions: Therapeutic exercise, Therapeutic functional activity, Neuromuscular re-education, Self-care/home management, Manual therapy Therapeutic Interventions Home Management Training (min): 20 min Therapeutic Activity (min): 40 min Therapeutic Exercise (min): 30 min Time Tracking Total Timed Units (min): 90 min Total Treatment Time (min): 90 min OT Individual: 90 Minutes Marianela Veliz M.S., O.T. Denise Macedo P.T.A. - 09/14/2021 4:40 PM CDT [facility] SUBJECTIVE Patient's Name: Aurora Langley Reason for Referral: PT Evaluate and Treat: Inpatient rehabilitation Medical Diagnosis: 1. Lack Of Coordination 2. Decline Functional Status 3. Imbalance Non Orthopedic 4. Weakness General History of Present Illness: Patient is s/p L2-L5 laminectomies for lumbar stenosis with gait instability by Dr. 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 Onset Date: 09/02/21 Patient/Caregiver Goals: Be able to complete cares with support of spouse to return home Precautions Other Precautions: fall, history of TBI, expressive aphasia, no functional use of RUE, R inattention, uses R AFO and knee brace for ambulation OBJECTIVE Pain: Patient did not express pain Vitals: Not indicated at this time Bed Mobility - Rolling # of Assistants: 1 Level of Assistance: Moderate assistance Device: None Cuing: Verbal, Tactile, Visual Comments: Verbal cues and assistance with log roll technique Bed Mobility - Supine to Sit # of Assistants: 1 Level of Assistance: Moderate assistance Device: None Cuing: Verbal, Tactile, Visual Comments: assistance and cues with kicking LE off mat and assistance at trunk Bed Mobility - Sit to Supine # of Assistants: 1 Level of Assistance: Moderate assistance Device: None Cuing: Verbal, Tactile, Visual Comments: Assistance at trunk and LE Sit to Stand Transfers # of Assistants: 1 Transfer Surface: Wheelchair, Therapy mat, Chair Transfer Equipment: Gait belt, Sit to stand machine, Single rail (Shannan Stedy) Level of Assistance: Moderate assistance Assessment/Delivery: Assessed, Instructed, Therapist assisted, Facilitated Comments: Massed practis of sit to stand transfers using shannan stedy, hemirail, and // barsWhen usingSara Stedy, requires cues to reach left hand for cross bar and assistance for positioning feet. Moderate x1 to power up to stand from lower seat heights (wheelchair), contact guard to minimal assistance to stand from paddles or raised therapy mat. Additionally facilitated transfers within parallel bars, using left rail only. PT assisting with blocking knees and helping at trunk via gait belt, with verbal cues throughout for sequencing. Stand to Sit Transfers # of Assistants: 1 Transfer Surface: Wheelchair, Chair, Therapy mat Transfer Equipment: Gait belt, Sit to stand machine, Single rail (Shannan Stedy) Level of Assistance: Moderate assistance Assessment/Delivery: Assessed, Instructed, Therapist assisted, Facilitated Comments: Facilitation for slow controlled eccentric descent. Bed, Chair, Wheelchair Transfers # of Assistants: 1 Transfer Surface: Wheelchair, Chair (Therapy mat) Transfer Approach: To the left, Low/squat pivot Transfer Equipment: No device Level of Assistance: Maximal assistance Assessment/Delivery: Therapist assisted, Assessed, Instructed, Educated, Facilitated PT Neuromuscular Re-education Neuromuscular Re-education 1: Sitting balance and LE coordination training with sitting on therapy mat and kicking soccer ball with alternating LE. Focus on maintaining sitting balance while kicking ball. Physical Assistance with lifting R LE to assist in swing Balance Retraining Sitting: Static, Reaching through moderate excursions Static Standing Balance: Static standing Static Standing Balance Comments: standing at hemirail, in // bars, and in shannan stedy, focus on endurance and standing balance. Assistance with R knee extension Supine Exercise - Side Addressed: Bilateral Supine Exercise: Heel slides, Short arc quads, Bridging, Hip ABduction/ADduction Exercise Mode: Active assistance (comment) Supine Exercise 1: L LE calf stretch and hamstring stretch Seated Exercise - Side Addressed: Bilateral Sitting Surface: Wheelchair Seated Exercise: Marching, Long arc quads, Knee flexion, Hip abduction/adduction (Resisted plantar flexion) Exercise Mode: Elastic band (comment), Active motion against gravity (Green resistance band utilizedfor long-arc quads, knee flexion, and hip abduction exercises; Hinton band with plantar flexion) Sets/Repetitions: x10 each - performed in AM and PM sessions Seated Exercise Comments: orange theraband for hip abduction Patient/Family Education: Education on sit to stand transfers Education Provided to: Gitta and Learner's Response: Requires continued education At the end of today's therapy session patient was left seated in bedside chair with an appropriate call light within reach. Patient's needs and questions addressed during today's session. Contact monitoring: PPE used during therapy: Therapist was wearing the following PPE throughout entire session: surgicalmask and eye protection Patient was wearing a mask during therapy session: yes Additional Staff Present During Session: gym tech Assessment Patient continues to demonstrate improvement throughout therapy sessions. Massed practice today for sit to/from stand transfers from various surfaces and heights using Shannan Stedy. Minimal assistance tocontact guard assistance from raised mat surface and moderate assistance to maximal assistance from low wheelchair surface. Standing practice at kemi rail and in // bars with focus on knee extension and standing tolerance. Patient stood for a max of 20 seconds. Patient will benefit from continued skilled physical therapy interventions for strength, neuromuscular re-education, family education and training, and functional mobility. Barriers to Discharge Home: Current functional status, Safety concerns, Fall risk Barriers to Discharge Comments: Requires assist of two for mobilizing Comorbid Conditions: Other (Comment), Cerebrovascular accident (see [facility] for full medical history) Personal Factors: Balance impairment, Communication deficit, Hand dominance, History of falls, Needsassistive device, Safety awareness Discharge Therapy Needs - PT: Ongoing skilled physical therapy Level of Care Needed - PT: Assistance with transfers (Comment), Assistance with walking and moving around the home, Assistance with bed mobility, Cognitive assistance needed Equipment Recommended - PT: Other (Comment), Wheelchair (Shannan Stedy may be beneficial for transfers/etc.; patient only has standard manual wheelchair available, may benefit from ordering custom wheelchair) Functional Goals and Timeframes: PT Goal #1: Patient and spouse will be able to perform bed mobility using no hospital bed features with Min A x1 in order to increase independence in home. PT Goal #1 Date: 09/12/21 PT Goal #1 Status: Progressing PT Goal #2: Patient will be able to complete sit to/from stand transfer using Shannan Stedy or most appropriate gait device with Min A x1 in order to improve household mobility. PT Goal #2 Date: 09/12/21 PT Goal #2 Status: Advanced PT Goal #3: At discharge, patient will be able to perform stand pivot transfer using least restrictive device with Mod A x1 in order to improve household mobility. PT Goal #3 Date: 09/19/21 PT Goal #3 Status: Progressing PT Goal #4: Patient will demonstrate ability to maintain unsupported sitting at least 10 minutes to improve mobility and safety. PT Goal #4 Date: 09/19/21 PT Goal #4 Status: Achieved Progress: Progressing toward goals Plan Patient agrees with the plan of care and goals. Treatment Plan: PT Frequency: 6 times per week PT Amount: 2 visits per day PT Inpatient Duration : Until goals are met or hospital discharge Plan: Continue with current plan PT Plan Comments: Continue progression towards improved participation and safety with functional mobility. Progress towards mobility with Ax1 with caregiver training. Treatment interventions may include: Treatment/Interventions: Therapeutic exercise, Therapeutic functional activity, Neuromuscular re-education, Gait training, Self-care/home management, Orthosis [id number] [employer]PER[employer]OR [employer] Visit Trackin Time Spent with Patient Therapeutic Interventions Neuromuscular Re-Education (min): 15 min Therapeutic Activity (min): 45 min Therapeutic Exercise (min): 30 min Time Tracking Total Timed Units (min): 90 min Total Treatment Time (min): 90 min PT Individual : 90 Minutes Denise Macedo, P.T.A. Manuel Hughes, Vivek.Ph. - 09/14/2021 10:51 AM CDT Images from the original note were not included. Pharmacist Progress Note ?? Reason for admission: s/p L2-5 lami on 09/02; transfer to rehab 09/04 PMH: Epilepsy, TBI, HLD ?? OBJECTIVE Home medications: ?? Held: Supplements ?? Changed: None ?? Monitoring: CBC with Hgb 11 (stable) on 09/10; BMP wnl, cbmz 13.3 and keppra 9.4 on 09/05. ? ASSESSMENT / PLAN 1. TBI with epilepsy: home Carbatrol 500 mg bid and Keppra 500/250/500 mg tid. ?? Last Keppra level slightly low (typical range 10-40 but does not correlate well to efficacy) and total carbamazepine level 13.3 on 09/05 (slightly above goal range of 4-12). Neuro recommended to continue current doses of Carbatrol and Keppra. 2. HLD/CV: Home aspirin 81 mg/d and Lipitor 10 mg q48h 3. GI: Last BM 09/13 on scheduled miralax/senna 4. VTE ppx: enoxaparin 40 mg/d Manuel Hughes, R.Ph. ?? Carolina Veliz M.S., O.T. - 09/14/2021 8:30 AM CDT [facility] SUBJECTIVE Patient's Name: Aurora Langley Reason for Referral: Occupational therapy treat Medical Diagnosis: 1. Lack Of Coordination 2. Decline Functional Status 3. Imbalance Non Orthopedic 4. Weakness General History of Present Illness: Patient is s/p L2-L5 laminectomies for lumbar stenosis with gait instability by Dr. 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 Precautions Other Precautions: fall, history of TBI, expressive aphasia, no functional use of RUE, R inattention, uses R AFO and knee brace for ambulation Fall Risk (65 and older) Fall in the last 12 months: Yes Did you have an injury with the fall?: No Are you fearful of falling?: Yes OBJECTIVE Pain: No pain reported during OT sessions on this date. Vitals: Not indicated at this time 3 separate and distinct 30 minute OT sessions completed on this date. Activities of daily living: Toilet Transfers # of Assistants: (1-2) Transfer Surface: Commode Transfer Approach: To and from, Stand pivot, To the right, To the left Transfer Equipment: Grab bars Level of Assistance: Moderate assistance, Maximal assistance Assessment/Delivery: Assessed, Instructed, Therapist assisted, Facilitated Toilet Transfers Comments: Prior to transfer training, therapist facilitating motor priming and warmup for BLE via marching, toe taps, and kicks. Massed repetition practice for commode transfers using the patient's commode from home with set up simulated for home set up per spouse's report and pictures provided. Incorporation of Shannan Bocanegrady handle to simulate the floor to ceiling grab bar that is installed in their home. Assist and cuing for hand placement on the bar, as well as on therapist's shoulder to assist with sit<>stand and pivot. Initial set up assist for feet to facilitate pivot. Progressing from x2 to x1 person assist for the pivot. Toileting Toileting Location: Commode chair Toileting Delivery: Assessed, Facilitated Toileting Level of Assistance: Moderate assistance, Maximal assistance Toileting Comments: Toileting completed once during each 30 minute session on this date, with patient able to complete hygiene with set up assist. Spouse assisting patient with clothing management during 2/3 trials - patient able to initiate following cuing pulling pants and briefs up/down over her left hip. Patient able to initiate and complete emil-hygiene for urination. Verbal cuing and facilitation at hips for posture and to increase hip and thoracic extension for tall standing. When completing with x1 helper assist, max assist required for standing balance and clothing management. UE Dressing UE Dressing Delivery: Assessed, Facilitated, Instructed UE Dressing Items Included: Jacket/garment with zipper UE Dressing Level of Assistance: Moderate assistance, Minimal assistance UE Dressing Location: Chair UE Dressing Comments: Facilitation of ADL re-training for upper body dressing to increase patient's independence with this task. Assist required to initiate threading of each UE into the sleeve, with patient able to complete following this positioning. Bed, Chair, Wheelchair Transfers # of Assistants: 1 Transfer Surface: Bed, Chair Transfer Approach: To the left Transfer Equipment: No device Level of Assistance: Minimal assistance, Moderate assistance Assessment/Delivery: Therapist assisted, Assessed, Instructed, Educated, Facilitated Manual Therapy: Shoulder mobilizations facilitated for RUE to maintain range of motion needed for optimal positioning and movement range required for activities of daily living. Progressing to low load prolonged stretch at the elbow through the digits. Therapeutic Exercise: Engaged in strengthening seated in wheelchair base for COLLINS to progress her strength required to complete self cares and functional transfers. 2x10 repetitions for shoulder flexion, abduction, and elbowflexion with orange theraband, and shoulder row/retraction with red theraband. Patient tolerated all exercises well with rest breaks in between and verbal cuing/ assist for positioning and sequencing through each exercise. Patient/Family Education: Set up and execution of stand pivot transfers to/from the commode. Education Provided to: Aurora and Kirk (spouse) Learner's Response: Requires cueing and Requires continued education At the end of today's therapy session patient was left in bed with an appropriate call light within reach. Patient's needs and questions addressed during today's session. Contact monitoring: PPE used during therapy: Therapist was wearing the following PPE throughout entire session: surgicalmask, eye protection and gloves Patient was wearing a mask during therapy session: no Family member/caregiver present was wearing a mask: yes Additional Staff Present During Session: nursing resident Aurora was seen by skilled OT today to target ADL and functional transfer re- training, as well as forcaregiver education and training. She is making good progress toward reaching and progressing her therapy goals. Today she completed multiple repetitions of stand pivot commode transfers with x1-2 assist. Will require ongoing training for functional transfers, standing balance, and lower body clothingmanagement in anticipation of dismissing to home with x1 assist from her spouse. All of the above and previously listed impairments (please see EMR/ initial OT evaluation for further detail) significantly impact her ability to safely and independently complete activities of daily living and mobility. Patient requires skilled occupational therapy services to address listed deficitsand to maximize safety and independence with overall occupational performance and participation prior to discharge. Barriers to Discharge Home: Current functional status, Safety concerns, Fall risk Barriers to Discharge Comments: Requires assist of two for mobilizing Comorbid Conditions: Other (Comment), Cerebrovascular accident (see [facility] for full medical history) Personal Factors: Balance impairment, Communication deficit, Hand dominance, History of falls, Needsassistive device, Safety awareness Discharge Therapy Needs - OT: Ongoing skilled occupational therapy Level of Care Needed - OT: Assistance with toileting, Assistance with toilet/shower transfers, Assistance with medication set up/administration, Assistance with showering/bathing, Assistance with dressing, Physical assistance needed, Assistance with meal preparation, Assistance with student financial services counselor, Assistance with transportation, Assistance with housekeeping, Assistance with shopping, Cognitiveassistance needed, Assistance with eating/feeding Functional Goals and Timeframes: OT Goal #1: NEW STG: Pt will complete stand pivot commode transfer with minimal assistance x1 and use of adaptive equipment as needed. OT Goal #1 Status: Advanced OT Goal #2: STG: Patient will complete LB dressing with use of adaptive equipment with moderate assist of 1. OT Goal #2 Status: Progressing OT Goal #3: STG: Pt will be able to maintain standing with adaptive setup and moderate assistance toallow caregiver to safely assist with clothing management for self cares and to participate in grooming tasks. (4/4 - requiring assist x2, 1 for moderate to max assist for standing balance and 1 for clothing management) OT Goal #3 Status: Progressing OT Goal #4: LTG: Pt's spouse will verbalize understanding on safe mechanics and DME for patient to continue to participate with ADL cares. OT Goal #4 Status: Progressing Progress: Progressing toward goals Plan Patient agrees with the plan of care and goals. Treatment Plan: OT Frequency: 6 times per week OT Amount: 2 visits per day OT Inpatient Duration : Until goals are met or hospital discharge Plan: Continue with current plan Treatment interventions may include: Treatment Interventions: Therapeutic exercise, Therapeutic functional activity, Neuromuscular re-education, Self-care/home management, Manual therapy Therapeutic Interventions Home Management Training (min): 60 min Manual Therapy (min): 15 min Therapeutic Exercise (min): 15 min Time Tracking Total Timed Units (min): 90 min Total Treatment Time (min): 90 min OT Individual: 90 Minutes Marianela Veliz M.S., O.T. Niyah Early M.D. - 09/14/2021 7:23 AM CDT SUBJECTIVE Mrs. Aurora Langley is a 76-year-old, right-handed, [place]-speaking woman with past medical history of TBI with residual posttraumatic epilepsy, right spastic hemiparesis and expressive aphasia s/p SKY LINE YARDER shunt (1995) and lumbar spinal stenosis now status post L2-L5 lumbar laminectomy on 09/02/[address] Castellon. She is admitted to acute inpatient rehabilitation for lower extremity weakness and impairments in gait and ADL performance. Mrs. Langley reports that she slept well last night and is pleased with her functional progress that she is making during her time here on the inpatient rehabilitation service. She denied any pain or discomfort this morning. She had some time for rest over the weekend which she found to be beneficial, but is dressed and ready to participate today. All questions and concerns were addressed to the best of my ability. OBJECTIVE Temperature: [36.6 ??C-36.8 ??C] 36.8 ??C Resp Rate: [16] 16 Blood Pressure: (106-154)/(52-84) 154/84 SpO2: [94 %-96 %] 96 % Weight: [65.2 kg] 65.2 kg BMI (Calculated): [22 kg/m??] 22 kg/m?? Physical Exam: General: Well-appearing woman seated up to chair awaiting breakfast. Appears comfortable with legs crossed. HEENT: Normocephalic, atraumatic. Hearing grossly intact. Cardiovascular: Hemodynamically stable Respiratory: No dyspnea or use of accessory muscles. Respiratory rate as noted above in vital signs. ASSESSMENT / PLAN Mrs. Aurora Langley is a 76-year-old, right-handed, [place]-speaking woman with past medical history of TBI with residual posttraumatic epilepsy, right spastic hemiparesis and expressive aphasia s/p SKY LINE YARDER shunt (1995) and lumbar spinal stenosis now status post L2-L5 lumbar laminectomy on 09/02/[address] Castellon. She is admitted to acute inpatient rehabilitation for lower extremity weakness and impairments in gait and ADL performance. Plan for Today (09/14/21): - continue with multidisciplinary inpatient rehabilitation - monitor for neurologic change including possible seizure activity. # Lumbar spinal stenosis with neurogenic claudication s/p L2-L5 laminectomy (09/02/21) # Progressive lower limb weakness # Gait unsteadiness # History of TBI resulting in spastic right hemiparesis, posttraumatic epilepsy and expressive aphasia - Comprehensive PT/OT - Restrictions: 15-20 pound lifting restriction and no heavy lifting, twisting or bending for 6 weeks post-op which will be October 14 - Pain control regimen includes: Tylenol 1000 mg every 6 hours as needed - Continue home seizure medication regimen: carbamazepine 500 mg twice daily levetiracetam 500 mg every morning, 250 mg with lunch, 500 mg every evening folic acid 1,000 mcg daily - Neurosurgery will coordinate outpatient follow-up - Neurology consult recommended continuing at home doses of carbamazepine and levetiracetam - has diazepam PRN to be given only if having seizure-like activity for >5 minutes (one eye closed, face-glossing over, right eyelid twitching, and NOT responding or following commands), can be given 2x for a total of 10 mg if not responsive to first dose ?? # Hyperlipidemia - Continue home atorvastatin 10 mg every 48 hours - Continue home aspirin 81 mg daily ?? FULL CODE as discussed with patient. Surgical Incision Aries: can be removed 14 days post-op (09/16) Diet: Regular DVT prophylaxis: Lovenox Bowel: bowel medication regimen as needed Bladder: currently voiding at her baseline Disposition: anticipate discharge September 22; goal to home with family support [place] [facility] [place] [phone] with any questions or concerns. ?? Niyah Early M.D. PM&R, PGY-2 Associated attestation - Teddy Avendano M.D., Ph.D. - 09/14/2021 4:12 PM CDT I saw and evaluated the patient, participating in the trinh portions of the service. I reviewed the resident/fellow???s note. I agree with the resident/fellow???s findings and plan. Ms. Langley is capable of participating in rehabilitation. She continues to progress towards functional independence in the area(s) of mobility, self-care, and communication and will benefit from ongoing intensive inpatient rehabilitation. I have met with the patient and observed her occupational therapy. Ms. Langley had no new concerns and was participating well during the portion of her OT session that I observed. She is now advancingthe serous study to making transfers with no device with moderate to maximal assistance of 1. She is making progress in ADLs as well. Currently she needs moderate assistance for the upper extremity and moderate to maximal assistance for the lower extremities. BP 120/71 (BP Location: Left arm;Upper, Patient Position: Sitting) Pulse 86 Temp 36.9 ??C (Oral) Resp 16 Ht 172.2 cm Wt 65.2 kg SpO2 97% BMI 21.99 kg/m?? No results found for this or any previous visit (from the past 24 hour(s)). Intake/Output Summary (Last 24 hours) at 09/14/2021 1610 Last data filed at 09/14/2021 1030 Gross per 24 hour Intake 800 ml Output 800 ml Net 0 ml Wt 65.2 kg initial weight 67.6 kg Ms. Langley is doing well given the comorbidity load that she has from her pre- existing hemiparesis. We will continue with her program and transition to a outpatient therapy program when it is safe todo so. Teddy Avendano M.D., Ph.D. PPE use information for possible contact monitoring: PPE used during visit: Provider was wearing a mask and eye protection throughout entire session. Patient was wearing a mask throughout entire session. Carolina Veliz M.S., O.T. - 09/13/2021 7:25 AM CDT Occupational Therapy Rehabilitation [facility] Inpatient Progress Note SUBJECTIVE Patient's Name: Aurora Langley Reason for Referral: Occupational therapy treat Medical Diagnosis: 1. Lack Of Coordination 2. Decline Functional Status 3. Imbalance Non Orthopedic 4. Weakness General History of Present Illness: Patient is s/p L2-L5 laminectomies for lumbar stenosis with gait instability by Dr. 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 Precautions Other Precautions: fall, history of TBI, expressive aphasia, no functional use of RUE, R inattention, uses R AFO and knee brace for ambulation Fall Risk (65 and older) Fall in the last 12 months: Yes Did you have an injury with the fall?: No Are you fearful of falling?: Yes OBJECTIVE Pain: None indicated during OT sessions on this date Vitals: Not indicated at this time Home Management Training: Bed, Chair, Wheelchair Transfers Transfer Surface: Chair, Commode Transfer Approach: To Transfer Equipment: Sit to stand machine??(shannan stedy) Level of Assistance: Moderate assist x1 Assessment/Delivery: Therapist assisted Progressing to performing sit<>stand and shannan stedy transfers with moderate assist x1, with steadying assist at the trunk during the transfer for safety. Benefits from cuing for countdown 1-3, aswell as for posture to stand tall. Hands on facilitation at posterior hips and across chest to increase extension in standing. ?? Bathing Bathing Location: Seated in shower Bathing Adaptive Equipment: Hand-held shower head Body Parts Included in Task: Chest, Right arm, Left arm, Abdomen,Perineal area, Buttocks, Right upper leg, Left upper leg, Right lower leg, Left lower leg Assistance required: wash/ drying left and right lower legs. Drying buttocks and RUE. Bathing Level of Assistance: moderate assistance Bathing Comments: active aid used for seated support during bathing. Patient able to wash UB, groin and upper thighs with min a. Caregiver education incorporated to facilitate training for routine at dismissal. Patient and spouse were encouraged to promote increased active participation by the patientfor completing these tasks. ?? UE Dressing UE Dressing Delivery: Therapist Assisted UE Dressing Items Included: manager recovery shirt UE Dressing Level of Assistance: moderate assist UE Dressing Location: Chair UE Dressing Comments: [place] shirt and bra with min to moderate assistance for pulling over her RUE. Donning button down shirt with assist to thread her RUE, education on kemi dressing techniques. Maxassist for donning a zip up jacket. ? LE Dressing LE Dressing Location: Chair LE Dressing Delivery: Therapist Assisted LE Dressing Items Included: Socks, Shoes, Pants, Underwear/Adult incontinence briefs LE Dressing Level of Assistance: Moderate to Max assist. LE Dressing Comments: Spouse providing assist as he previously performed at home for donning RLE knee and ankle braces, socks, and shoes. Patient assisting to pull pants up thighs and over hips once set up with threading over BLE. Max assist for standing balance when performing the task in standing with her LUE (BUE off-weighted from shannan biswas support_. Patient/Family Education: Education on orthosis donning and wear schedule. Caregiver education on use of sustainable body mechanics techniques to mitigate risk for injury. Education Provided to: Aurora and Kirk (spouse) Learner's Response: Requires cueing and Requires continued education At the end of today's therapy session patient was left seated in bedside chair with a pressure relieving cushion with an appropriate call light within reach. Patient's needs and questions addressed during today's session. Contact monitoring: PPE used during therapy: Therapist was wearing the following PPE throughout entire session: surgicalmask, eye protection and gloves Patient was wearing a mask during therapy session: no Family member/caregiver present was wearing a mask: yes Additional Staff Present During Session: None Assessment Aurora was seen today for skilled OT to address ADL re-training and caregiver training. Transfer to [facility] for bathing via Shannan Biswas on this date with moderate assist x1 helper. With encouragement, patient was able to participate well in bathing and dressing tasks with less assistance from both therapist and caregiver. Limited by deficits in strength, standing tolerance, posture, and balance. All ofthe above and previously listed impairments (please see EMR/ initial OT evaluation for further detail) significantly impact her ability to safely and independently complete activities of daily living and mobility. Patient requires skilled occupational therapy services to address listed deficits and tomaximize safety and independence with overall occupational performance and participation prior to discharge. Barriers to Discharge Home: Current functional status, Safety concerns, Fall risk Barriers to Discharge Comments: Requires assist of two for mobilizing Comorbid Conditions: Other (Comment), Cerebrovascular accident (see [facility] for full medical history) Personal Factors: Balance impairment, Communication deficit, Hand dominance, History of falls, Needsassistive device, Safety awareness Discharge Therapy Needs - OT: Ongoing skilled occupational therapy Level of Care Needed - OT: Assistance with toileting, Assistance with toilet/shower transfers, Assistance with medication set up/administration, Assistance with showering/bathing, Assistance with dressing, Physical assistance needed, Assistance with meal preparation, Assistance with student financial services counselor, Assistance with transportation, Assistance with housekeeping, Assistance with shopping, Cognitiveassistance needed, Assistance with eating/feeding Functional Goals and Timeframes: OT Goal #1: STG: Pt will complete stand pivot commode transfer with moderate assistance x2. OT Goal #2: STG: Patient will complete LB dressing with use of adaptive equipment with moderate assist of 1. OT Goal #3: STG: Pt will be able to maintain standing with adaptive setup and moderate assistance toallow caregiver to safely assist with clothing management for self cares and to participate in grooming tasks. OT Goal #4: LTG: Pt's spouse will verbalize understanding on safe mechanics and DME for patient to continue to participate with ADL cares. Progress: Progressing toward goals Plan Patient agrees with the plan of care and goals. Treatment Plan: OT Frequency: 6 times per week OT Amount: 2 visits per day OT Inpatient Duration : Until goals are met or hospital discharge Plan: Continue with current plan Treatment interventions may include: Treatment Interventions: Therapeutic exercise, Therapeutic functional activity, Neuromuscular re-education, Self-care/home management Therapeutic Interventions Home Management Training (min): 57 min Time Tracking Total Timed Units (min): 57 min Total Treatment Time (min): 57 min OT Individual: 57 Minutes Marianela Veliz M.S., O.T. Laura Cardenas M.D. - 09/13/2021 7:09 AM CDT SUBJECTIVE Mrs. Aurora Langley is a 76-year-old, right-handed, [place]-speaking woman with past medical history of TBI with residual posttraumatic epilepsy, right spastic hemiparesis and expressive aphasia s/p SKY LINE YARDER shunt (1995) and lumbar spinal stenosis now status post L2-L5 lumbar laminectomy on 09/02/[address] Castellon. She is admitted to acute inpatient rehabilitation for lower extremity weakness and impairments in gait and ADL performance. Mrs. Langley was seen with her at bedside. They indicated she had a good night of sleep. They indicates things are going well. They deny pain. They state bowel and bladder are being managed appropriately. Blood pressure remains well controlled with pressures ranging between 98-105/54-52. She continues tohave urinary incontinence which is baseline. Last bowel movement was recorded earlier today. No seizure-like activity is been noted. Of note, asked therapy about extension of her length of stay. This will be deferred to the primary service however she may not have medical need to extend her length of stay. OBJECTIVE Temperature: [36.5 ??C-36.9 ??C] 36.5 ??C Resp Rate: [18-22] 18 Blood Pressure: (98-105)/(52-54) 105/52 SpO2: [96 %] 96 % Physical Exam: General: Well-appearing woman sitting up eating breakfast. HEENT: Normocephalic, atraumatic. Hearing grossly intact. Cardiovascular: Hemodynamically stable Respiratory: No dyspnea or use of accessory muscles. Respiratory rate as noted above in vital signs. Neuro Exam: She demonstrated antigravity strength in her bilateral hip flexors and quadriceps. I could not assess in more detail as she was eating breakfast. ASSESSMENT / PLAN Mrs. Aurora Langley is a 76-year-old, right-handed, [place]-speaking woman with past medical history of TBI with residual posttraumatic epilepsy, right spastic hemiparesis and expressive aphasia s/p SKY LINE YARDER shunt (1995) and lumbar spinal stenosis now status post L2-L5 lumbar laminectomy on 09/02/[address] Castellon. She is admitted to acute inpatient rehabilitation for lower extremity weakness and impairments in gait and ADL performance. Plan for Today (09/13/21): - Nursing plan for shower tomorrow. -monitor for neurologic change including possible seizure activity. # Lumbar spinal stenosis with neurogenic claudication s/p L2-L5 laminectomy (09/02/21) # Progressive lower limb weakness # Gait unsteadiness # History of TBI resulting in spastic right hemiparesis, posttraumatic epilepsy and expressive aphasia - Comprehensive PT/OT - Restrictions: 15-20 pound lifting restriction and no heavy lifting, twisting or bending for 6 weeks post-op which will be October 14 - Pain control regimen includes: Tylenol 1000 mg every 6 hours as needed - Continue home seizure medication regimen: carbamazepine 500 mg twice daily levetiracetam 500 mg every morning, 250 mg with lunch, 500 mg every evening folic acid 1,000 mcg daily - Neurosurgery will coordinate outpatient follow-up - Neurology consult recommended continuing at home doses of carbamazepine and levetiracetam - has diazepam PRN to be given only if having seizure-like activity for >5 minutes (one eye closed, face-glossing over, right eyelid twitching, and NOT responding or following commands), can be given 2x for a total of 10 mg if not responsive to first dose ?? # Hyperlipidemia - Continue home atorvastatin 10 mg every 48 hours - Continue home aspirin 81 mg daily ?? FULL CODE as discussed with patient. Surgical Incision Bantam: can be removed 14 days post-op (09/16) Diet: Regular DVT prophylaxis: Lovenox Bowel: bowel medication regimen as needed Bladder: currently voiding at her baseline Disposition: anticipate discharge September 22; goal to home with family support I personally spent over half of a total 20 minutes in counseling and discussion with the patient andcoordination of care as described above. Laura Cardenas M.D. - 09/12/2021 11:42 AM CDT SUBJECTIVE Mrs. Aurora Lnagley is a 76-year-old, right-handed, [place]-speaking woman with past medical history of TBI with residual posttraumatic epilepsy, right spastic hemiparesis and expressive aphasia s/p SKY LINE YARDER shunt (1995) and lumbar spinal stenosis now status post L2-L5 lumbar laminectomy on 09/02/[address] Castellon. She is admitted to acute inpatient rehabilitation for lower extremity weakness and impairments in gait and ADL performance. Mrs. Langley was seen with her at bedside. They indicated she had a good night of sleep. Her is very pleased that she had a bowel movement yesterday on the commode. She had a 2nd bowelmovement later in the evening. They are hopeful for shower tomorrow. Her indicates that he feels like she is not only getting stronger but they are better able to manage with the Shannan steady. Blood pressure remains well controlled with pressures ranging between 98-127/54-63. She continues tohave urinary incontinence which is baseline. No seizure-like activity is been noted. OBJECTIVE Temperature: [36.7 ??C-36.8 ??C] 36.7 ??C Resp Rate: [15] 15 Blood Pressure: (105-127)/(55-63) 127/63 SpO2: [96 %-97 %] 96 % Physical Exam: General: Well-appearing woman sitting up eating breakfast. HEENT: Normocephalic, atraumatic. Hearing grossly intact. Cardiovascular: Hemodynamically stable Respiratory: No dyspnea or use of accessory muscles. Respiratory rate as noted above in vital signs. Neuro Exam: She demonstrated antigravity strength in her bilateral hip flexors and quadriceps. I could not assess in more detail as she was eating breakfast. Extremities: [place] knee cage brace on right knee and ankle brace on right ankle. Right upper extremity held in flexion position which is baseline. ASSESSMENT / PLAN Mrs. Aurora Langley is a 76-year-old, right-handed, [place]-speaking woman with past medical history of TBI with residual posttraumatic epilepsy, right spastic hemiparesis and expressive aphasia s/p SKY LINE YARDER shunt (1995) and lumbar spinal stenosis now status post L2-L5 lumbar laminectomy on 09/02/[address] Castellon. She is admitted to acute inpatient rehabilitation for lower extremity weakness and impairments in gait and ADL performance. Plan for Today (09/12/21): - discussed with nursing plan for shower tomorrow. -monitor for neurologic change including possible seizure activity. # Lumbar spinal stenosis with neurogenic claudication s/p L2-L5 laminectomy (09/02/21) # Progressive lower limb weakness # Gait unsteadiness # History of TBI resulting in spastic right hemiparesis, posttraumatic epilepsy and expressive aphasia - Comprehensive PT/OT - Restrictions: 15-20 pound lifting restriction and no heavy lifting, twisting or bending for 6 weeks post-op which will be October 14 - Pain control regimen includes: Tylenol 1000 mg every 6 hours as needed - Continue home seizure medication regimen: carbamazepine 500 mg twice daily levetiracetam 500 mg every morning, 250 mg with lunch, 500 mg every evening folic acid 1,000 mcg daily - Neurosurgery will coordinate outpatient follow-up - Neurology consult recommended continuing at home doses of carbamazepine and levetiracetam - has diazepam PRN to be given only if having seizure-like activity for >5 minutes (one eye closed, face-glossing over, right eyelid twitching, and NOT responding or following commands), can be given 2x for a total of 10 mg if not responsive to first dose ?? # Hyperlipidemia - Continue home atorvastatin 10 mg every 48 hours - Continue home aspirin 81 mg daily ?? FULL CODE as discussed with patient. Surgical Incision Bantam: can be removed 14 days post-op (09/16) Diet: Regular DVT prophylaxis: Lovenox Bowel: bowel medication regimen as needed Bladder: currently voiding at her baseline Disposition: anticipate discharge September 22; goal to home with family support Amparo Farmer PMay., D.P.T. - 09/12/2021 11:00 AM CDT Physical Therapy Rehabilitation [place] [facility] Inpatient Treatment SUBJECTIVE Patient's Name: Aurora Langley Reason for Referral: PT Evaluate and Treat: Inpatient rehabilitation Medical Diagnosis: 1. Lack Of Coordination 2. Decline Functional Status 3. Imbalance Non Orthopedic 4. Weakness General History of Present Illness: Patient is s/p L2-L5 laminectomies for lumbar stenosis with gait instability by Dr. 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 Patient reports she slept well last night, feeling energized to work hard in therapy today. Precautions Other Precautions: fall, history of TBI, expressive aphasia, no functional use of RUE, R inattention, uses R AFO and knee brace for ambulation OBJECTIVE R knee cage and ankle brace donned prior to arrival and donned throughout session Pain: None reported. Vitals: Not indicated at this time Therapeutic Activity: Sit to Stand Transfers # of Assistants: 1 Transfer Surface: Wheelchair, Therapy mat, Chair Transfer Equipment: Gait belt, Sit to stand machine, Single rail (Shannan Stedy) Level of Assistance: Maximal assistance, Moderate assistance Assessment/Delivery: Assessed, Instructed, Therapist assisted, Facilitated Comments: When using Shannan Stedy, requires cues to reach left hand for cross bar and assistance for positioning feet. Moderate to maximal assistance of 1 to power up to stand from lower seat heights (wheelchair), contact guard to minimal assistance to stand from paddles. Additionally facilitated transfers within parallel bars, using left rail only, completing close to 10 repetitions. PT assisting withblocking knees and helping at trunk via gait belt, with verbal cues throughout for sequencing. Stand to Sit Transfers # of Assistants: 1 Transfer Surface: Wheelchair, Chair, Therapy mat Transfer Equipment: Gait belt, Sit to stand machine, Single rail (Shannan Stedy) Level of Assistance: Moderate assistance Assessment/Delivery: Assessed, Instructed, Therapist assisted, Facilitated Comments: Facilitation for slow controlled eccentric descent. Bed, Chair, Wheelchair Transfers # of Assistants: 1 Transfer Surface: Wheelchair, Chair (Therapy mat) Transfer Approach: To the right, To the left, Low/squat pivot Transfer Equipment: No device Level of Assistance: Maximal assistance, Moderate assistance Assessment/Delivery: Therapist assisted, Assessed, Instructed, Educated, Facilitated Comments: Utilized Shannan Stedy for transfers in patient's room. Facilitated different technique for pivot transfers in gym, working on higher squat pivot transfer with patient holding onto therapists shoulder/arm with left hand for support and PT assisting at gait belt and guiding hips over. PT also helping block right knee as needed. Able to facilitate transfer total of 4 times, does better transferring to the left. Requires step by step cues for sequencing and additional assistance for set up with positioning of feet. Patient's spouse present for session today and was quite impressed how controlled these transfers went. Neuromuscular Re-education: PT Neuromuscular Re-education Neuromuscular Re-education 1: Patient sitting at edge of therapy mat and spouse anterior, kicking soccer ball back and forth with patient to address seated balance, motor control and strengthening. Verbal cues from therapist to incorporate right lower extremity and to focus on maintaining upright posture. Balance Retraining Static Standing Balance: Static standing, Lateral weight shifts, Anterior/posterior weight shifts Static Standing Balance Comments: Patient able to tolerate standing for up to 40 seconds in one bouttoday. Working on balance re-education, strengthening and promote weight bearing, starting with static standing progressing to weight shifts, mini squats, and then single steps in place. Patient quite challenged with maintaining balance/stability when stepping, improved foot clearance on right. Provided target on floor for patient to place foot to work on motor control. PT anteriorly assisting with weight shifts, stability at hips and guarded knee. Dynamic Standing Balance: Stepping (Mini squats) Support Required: Moderate assistance, Maximal assistance, Parallel bars Patient/Family Education: Patient's spouse inquired about patient's discharge date on if it would need to be extended again. Discussed that this is a team decision, and will be partly dependent if theyplan to purchase a Shannan Stedy or similar standing transfer aide. Assisted patient's spouse with looking up other standing transfer aide options online that he could look into, but formally would only recommend [employer] that is used in the hospital. Additionally provided education on transfer techniques and discussed patient's overall progress in therapy thus far, which both patient and her spouse are pleased with. Education Provided to: Aurora and spouse, Kirk Learner's Response: Able to demonstrate and Requires cueing At the end of today's therapy session patient was left seated in bedside chair with spouse present with an appropriate call light within reach. Patient's needs and questions addressed during today's session. Contact monitoring: PPE used during therapy: Therapist was wearing the following PPE throughout entire session: surgicalmask and eye protection Patient was wearing a mask during therapy session: occasionally taking mask off in gym but able to put back on when cued Family member/caregiver present was wearing a mask: yes Assessment Aurora demonstrates increased energy levels today and was quite motivated to participate in therapy. Worked hard with sit to stand transfers within parallel bars, which patient was able to complete withslightly less assistance, tolerate standing for longer periods, and completed more total repetitions. Additionally trialed different technique for pivot transfers today, utilizing a higher squat pivot technique, which patient did very well with and was able to complete a total of 4 times throughout our session. Overall, Aurora has made steady progress since admission with reaching her functional goals. She remains??below her??functional baseline and will continue to benefit from intensive rehabilitation services in a multidisciplinary setting to optimize her??independence and achieve her??team goals. Barriers to Discharge Home: Current functional status, Safety concerns, Fall risk Barriers to Discharge Comments: Requires assist of two for mobilizing Comorbid Conditions: Other (Comment), Cerebrovascular accident (see [facility] for full medical history) Personal Factors: Balance impairment, Communication deficit, Hand dominance, History of falls, Needsassistive device, Safety awareness Discharge Therapy Needs - PT: Ongoing skilled physical therapy Level of Care Needed - PT: Assistance with transfers (Comment), Assistance with walking and moving around the home, Assistance with bed mobility, Cognitive assistance needed Equipment Recommended - PT: Other (Comment), Wheelchair (Shannan Stedy may be beneficial for transfers/etc.; patient only has standard manual wheelchair available, may benefit from ordering custom wheelchair) Functional Goals and Timeframes: PT Goal #1: Patient and spouse will be able to perform bed mobility using no hospital bed features with Min A x1 in order to increase independence in home. PT Goal #1 Date: 09/12/21 PT Goal #1 Status: Progressing PT Goal #2: Patient will be able to complete sit to/from stand transfer using Shannan Stedy or most appropriate gait device with Min A x1 in order to improve household mobility. PT Goal #2 Date: 09/12/21 PT Goal #2 Status: Advanced PT Goal #3: At discharge, patient will be able to perform stand pivot transfer using least restrictive device with Mod A x1 in order to improve household mobility. PT Goal #3 Date: 09/19/21 PT Goal #3 Status: Progressing PT Goal #4: Patient will demonstrate ability to maintain unsupported sitting at least 10 minutes to improve mobility and safety. PT Goal #4 Date: 09/19/21 PT Goal #4 Status: Achieved Progress: Progressing toward goals Plan Patient agrees with the plan of care and goals. Treatment Plan: PT Frequency: 6 times per week PT Amount: 2 visits per day PT Inpatient Duration : Until goals are met or hospital discharge Plan: Continue with current plan PT Plan Comments: Continue progression towards improved participation and safety with functional mobility. Progress towards mobility with Ax1 with caregiver training. Treatment interventions may include: Treatment/Interventions: Therapeutic exercise, Therapeutic functional activity, Neuromuscular re-education, Gait training, Self-care/home management, Orthosis [id number] Time Spent with Patient Therapeutic Interventions Neuromuscular Re-Education (min): 30 min Therapeutic Activity (min): 40 min Time Tracking Total Timed Units (min): 70 min Total Treatment Time (min): 70 min PT Individual : 70 Minutes Amparo Farmer P.T., D.P.T. Artemio Brady D.T.R. - 09/11/2021 10:53 AM CDT Patient was reassessed and determined to be nutritionally stable. Clinical nutrition will sign off. Please reconsult for any questions/concerns regarding patient's nutritional status. For questions about patient's nutritional care please contact pager [phone] on weekdays or [phone] on weekends/holidays. Madhavi Scales, Pharm.D., R.Ph. - 09/11/2021 10:38 AM CDT Images from the original note were not included. Pharmacist Progress Note ?? Reason for admission: s/p L2-5 lami on 09/02; transfer to rehab 09/04 PMH: Epilepsy, TBI, HLD ?? OBJECTIVE Home medications: ?? Held: Supplements ?? Changed: None ?? Monitoring: CBC with Hgb 11 (stable) on 09/10; BMP wnl, cbmz 13.3 and keppra 9.4 on 09/05. ? ASSESSMENT / PLAN 1. TBI with epilepsy: home Carbatrol 500 mg bid and Keppra 500/250/500 mg tid; prn valium available. ?? Last Keppra level slightly low (typical range 10-40 but does not correlate well to efficacy) and total carbamazepine level 13.3 on 09/05 (slightly above goal range of 4-12). Neuro recommended to continue current doses of Carbatrol and Keppra. 2. HLD/CV: vss on home aspirin 81 mg/d and Lipitor 10 mg q48h 3. GI: Last BM 09/11 on scheduled miralax/senna 4. VTE ppx: enoxaparin 40 mg/d ?? Amparo Farmer P.T., D.P.T. - 09/11/2021 10:30 AM CDT [facility] SUBJECTIVE Patient's Name: Aurora Langley Reason for Referral: PT Evaluate and Treat: Inpatient rehabilitation Medical Diagnosis: 1. Lack Of Coordination 2. Decline Functional Status 3. Imbalance Non Orthopedic 4. Weakness General History of Present Illness: Patient is s/p L2-L5 laminectomies for lumbar stenosis with gait instability by Dr. 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 Precautions Other Precautions: fall, history of TBI, expressive aphasia, no functional use of RUE, R inattention, uses R AFO and knee brace for ambulation OBJECTIVE R knee cage and ankle brace donned prior to arrival and donned throughout session Pain: None reported Vitals: Not indicated at this time Therapeutic Activity: Bed Mobility - Supine to Sit # of Assistants: 1 Level of Assistance: Moderate assistance Device: None Cuing: Verbal, Tactile Comments: Verbal cues for sequencing, requires assistance at trunk to transfer to upright sitting. Bed Mobility - Sit to Supine # of Assistants: 1 Level of Assistance: Maximal assistance Device: None Cuing: Verbal, Tactile Comments: Requires assistance at trunk and bilateral lower extremities. Sit to Stand Transfers # of Assistants: 2 (1-2) Transfer Surface: Wheelchair, Bed Transfer Equipment: Gait belt, Sit to stand machine (Shannan Stedy) Level of Assistance: Maximal assistance, Moderate assistance Assessment/Delivery: Assessed, Instructed, Therapist assisted, Facilitated Comments: Step by step cues for set-up and sequencing. Requires cues to reach left hand for cross bar and assistance for positioning feet. Moderate to maximal assistance of 1-2 to power up to stand, facilitate hip extension and upright posture. Requires increased assistance when standing from lower seat heights such as manual wheelchair. Stand to Sit Transfers # of Assistants: 1 Transfer Surface: Wheelchair, Bed Transfer Equipment: Gait belt, Sit to stand machine (Shannan Stedy) Level of Assistance: Moderate assistance Assessment/Delivery: Assessed, Instructed, Educated, Therapist assisted, Facilitated Comments: Facilitation for slow controlled eccentric descent. Bed, Chair, Wheelchair Transfers # of Assistants: 1 Transfer Surface: Bed, Wheelchair Level of Assistance: Maximal assistance Assessment/Delivery: Therapist assisted, Assessed, Instructed, Educated, Facilitated Comments: Performing majority of transfers with use of Shannan Stedy. Attempted to faciliate low pivot transfer from bed to wheelchair, however after 3 attempts, was unable to complete transfer, resortingto Shannan Stedy. Patient was receptive to cues for anterior trunk lean but when trying to complete transfer, patient often pushing posterior and leaning back. Neuromuscular Re-education: Balance Retraining Static Standing Balance: Static standing, Lateral weight shifts Static Standing Balance Comments: Facilitated sit to stands from paddles of Shannan Stedy x3 reps, patient able to complete transfer with contact guard to minimal assistance. Able to maintain standing position for 30-40 seconds, working on upright posture and lateral weight shifts. Patient unable to progress to steps in place today. Therapeutic Exercise: Supine Exercise - Side Addressed: Bilateral Supine Exercise: Bridges, Hip adduction pillow squeezes x10 repetitions Seated Exercise - Side Addressed: Bilateral Sitting Surface: Wheelchair Seated Exercise: Marching, Long arc quads, Knee flexion (Resisted plantar flexion) Exercise Mode: Elastic band (comment), Active motion against gravity (Green resistance band utilizedfor long-arc quads, knee flexion, and hip abduction exercises; Hinton band with plantar flexion) Sets/Repetitions: x20 each - performed in AM and PM sessions Seated Exercise Comments: Facilitated with skilled verbal and visual cues for appropriate performance and range of motion. ROM/Stretching Upper Extremity ROM/Stretching - Side Addressed: Right Shoulder Motion: Flexion, Abduction, Horizontal abduction, Internal rotation, External rotation, Scaption Elbow/Forearm Motion: Extension Wrist Motion: Flexion, Extension Hand/Digits Motion: Extension, Abduction UE ROM/Stretching Position: Seated UE ROM/Stretching Exercise Type: Passive range of motion, Low-load prolonged stretch UE ROM Comments: PT assisted with right upper extremity passive range of motion into low-load prolonged stretching. Patient demonstrates increased tone and contractures throughout her right upper extremity (distal > proximal). Lower Extremity ROM/Stretching-Side Addressed: Bilateral LE ROM/Stretching Position: Seated LE ROM/Stretching Exercise Type: Low-load prolonged stretch LE ROM Comments: PT facilitated hamstring and heel cord stretches during rest breaks. Increased toneand tightness noted on the R. Patient/Family Education: Rationale for given interventions; progression of lower extremity exercises; strategies with functional mobility Education Provided to: Aurora and spouseKirk Learner's Response: Able to demonstrate and Requires cueing At the end of today's therapy session patient was left in bed with an appropriate call light within reach. Patient's needs and questions addressed during today's session. Contact monitoring: PPE used during therapy: Therapist was wearing the following PPE throughout entire session: surgicalmask and eye protection Patient was wearing a mask during therapy session: when out of room Family member/caregiver present was wearing a mask: no Assessment Aurora demonstrated decreased energy levels today, attributed to it being the end of the week. Overall less tolerance with standing activities and functional transfers today, but did well working on progressing exercises from a seated and supine level. Overall compared to the start of the week, Aurora is requiring less physical assistance with sit to/from stand transfers with use of the Shannan Stedy. Shecontinues to make slow, but steady progress towards functional goals. She remains below her??functional baseline and will continue to benefit from intensive rehabilitation services in a multidisciplinary setting to optimize her??independence and achieve her??team goals. Barriers to Discharge Home: Current functional status, Safety concerns, Fall risk Barriers to Discharge Comments: Requires assist of two for mobilizing Comorbid Conditions: Other (Comment), Cerebrovascular accident (see [facility] for full medical history) Personal Factors: Balance impairment, Communication deficit, Hand dominance, History of falls, Needsassistive device, Safety awareness Discharge Therapy Needs - PT: Ongoing skilled physical therapy Level of Care Needed - PT: Assistance with transfers (Comment), Assistance with walking and moving around the home, Assistance with bed mobility, Cognitive assistance needed Equipment Recommended - PT: Other (Comment), Wheelchair (Shannan Stedy may be beneficial for transfers/etc.; patient only has standard manual wheelchair available, may benefit from ordering custom wheelchair) Functional Goals and Timeframes: PT Goal #1: Patient and spouse will be able to perform bed mobility using no hospital bed features with Min A x1 in order to increase independence in home. PT Goal #1 Date: 09/12/21 PT Goal #1 Status: Slowly progressing PT Goal #2: Patient will be able to complete sit to/from stand transfer using Shannan Stedy or most appropriate gait device with Mod A x1 in order to improve household mobility. PT Goal #2 Date: 09/12/21 PT Goal #2 Status: Progressing PT Goal #3: At discharge, patient will be able to perform stand pivot transfer using least restrictive device with Mod A x1 in order to improve household mobility. PT Goal #3 Date: 09/19/21 PT Goal #3 Status: Slowly progressing PT Goal #4: Patient will demonstrate ability to maintain unsupported sitting at least 10 minutes to improve mobility and safety. PT Goal #4 Date: 09/19/21 PT Goal #4 Status: Progressing Progress: Progressing toward goals Plan Patient agrees with the plan of care and goals. Treatment Plan: PT Frequency: 6 times per week PT Amount: 2 visits per day PT Inpatient Duration : Until goals are met or hospital discharge Plan: Continue with current plan PT Plan Comments: Continue progression towards improved participation and safety with functional mobility. Progress towards mobility with Ax1 with caregiver training. Treatment interventions may include: Treatment/Interventions: Therapeutic exercise, Therapeutic functional activity, Neuromuscular re-education, Gait training, Self-care/home management, Orthosis [id number] Time Spent with Patient Therapeutic Interventions Neuromuscular Re-Education (min): 10 min Therapeutic Activity (min): 40 min Therapeutic Exercise (min): 40 min Time Tracking Total Timed Units (min): 90 min Total Treatment Time (min): 90 min PT Individual : 90 Minutes Amparo Farmer P.T., D.P.T. Carolina Veliz M.S., O.T. - 09/11/2021 8:37 AM CDT [facility] SUBJECTIVE Patient's Name: Aurora Langley Reason for Referral: Occupational therapy treat Medical Diagnosis: 1. Lack Of Coordination 2. Decline Functional Status 3. Imbalance Non Orthopedic 4. Weakness General History of Present Illness: Patient is s/p L2-L5 laminectomies for lumbar stenosis with gait instability by Dr. 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 Precautions Other Precautions: fall, history of TBI, expressive aphasia, no functional use of RUE, R inattention, uses R AFO and knee brace for ambulation Fall Risk (65 and older) Fall in the last 12 months: Yes Did you have an injury with the fall?: No Are you fearful of falling?: Yes OBJECTIVE Pain: No pain indicated during OT sessions on this date. Vitals: Not indicated at this time Activities of daily living: Bed, Chair, Wheelchair Transfers Transfer Surface: Bed, Wheelchair Transfer Approach: To Transfer Equipment: Sit to stand machine??(shannan stedy) Level of Assistance: Total assistance??(max assist x2) Assessment/Delivery: Therapist assisted Moderate to max assist x2 sit<>stand with use of shannan stedy (increased assist for standing from lower heights). For the transfer, one person stabilizing at trunk and one person maneuvering the shannan stedy. Bed, Chair, Wheelchair Transfers # of Assistants: 2 Transfer Surface: Bed, Wheelchair Transfer Approach: Low/squat pivot, To, To the left Transfer Equipment: No device Level of Assistance: Maximal assistance, Moderate assistance Assessment/Delivery: Facilitated, Educated, Instructed, Assessed, Therapist assisted Comments: Wheelchair to bed and wheelchair <>therapy mat low pivot transfers with x2 assist Sameer/PM session. 20% assist from helper positioned posteriorly and 20% assist from therapist positioned anteriorly with bilateral knees blocked and hands providing lifting support under bilateral hips. Patient verbally cued for anterior lean bending at the hips toward therapist's left shoulder to maintain head hips relationship, as well as to assist with pushing up through her feet. Placement of her left hand on the bed toward her target, as she tends to try to reach up to grasp therapist at shoulder/around the neck. ?? Bed mobility: x2 moderate assist for short sitting at edge of bed to supine and positioning in preferred right sidelying. Patient able to scoot along the side of the bed with min to moderate physical assist and max verbal cuing. Toileting Toileting Location: Commode chair Toileting Delivery: Assessed, Facilitated Toileting Level of Assistance: Total assistance Toileting Comments: Moderate assist x2 for sit<>stand using Shannan stedy for clothing management, total assist from spouse for perihygiene when patient was seated on the commode as this is how theycomplete this task at home. ADL Comments ADL Comments: Discussion and education regarding current home set up and adaptive equipment. Spouse planning to bring in the rolling shower/commode chair they have from home for transfer training. Willneed to continue to assess optimal transfer techniques and adaptive equipment for accessing the the walk in shower. Feeding Feeding Location: Wheelchair Feeding Delivery: Assessed Feeding Adaptive Equipment: (lipped plate) Feeding Level of Assistance: Supervision/Set-up Feeding Comments: Set up assist and intermittent positioning assist. Improved scooping from plate level with use of the lipped plate. Orthotics Management: Further adjustments made to the ulnar border of the orthosis at the wrist/ hand following. Appearingto clear the side of the hand better with this adjustment to decrease risk for pressure spot formation. During 15 minute trial wear in the afternoon session, patient was noted to continue to have slight redness (blanchable to touch, reduced from previous). Addition of small piece of blue foam for padding. Issued to patient for trial wearing for short periods of time over the weekend. Instruction provided to the patient and spouse on technique for donning and positioning the orthosis, as well as for wear schedule, skin protection/ precautions, and stretching techniques prior to donning for optimal fit. Neuromuscular reeducation: Facilitation of massed repetition practice for anterior and lateral leans, progressing to right/ left scooting along the therapy mat. Education on head hips relationship. Patient benefitting from direct, brief instructions and countdowns for scoots and transfers. Facilitation at chest and posterior hips for postural retraining and anterior weight shifts with scap retraction and anterior pelvic tilt. Education Provided to: Aurora Learner's Response: Requires cueing and Requires continued education At the end of today's therapy session patient was left in bed with an appropriate call light within reach. Patient's needs and questions addressed during today's session. Contact monitoring: PPE used during therapy: Therapist was wearing the following PPE throughout entire session: surgicalmask and eye protection Patient was wearing a mask during therapy session: yes Family member/caregiver present was wearing a mask: yes Additional Staff Present During Session: REYNOLD Gee Assessment Aurora continues to work hard in therapy and make progress toward reaching her functional goals. Progressing to consistently performing low pivot transfers to her left today with moderate to max assist x2 helpers between bed<>wheelchair<>therapy mat, with max cuing for head hips relationship and hand positioning. Will benefit from ongoing training and progression of functional transfers inorder to prepare for anticipated dismissal to home with x1 assist from spouse. Spouse has brought inthe patient's home padded rolling commode for practice and use. Resting hand orthosis was issued to the patient today for wear for short periods of time over the weekend. Instructed patient and her spouse on technique for donning and positioning the orthosis, as well as for wear schedule, skin protection/ precautions, and stretching techniques prior to donning for optimal fit. All of the above and previously listed impairments (please see EMR/ initial OT evaluation for further detail) significantly impact her ability to safely and independently complete activities of daily living and mobility. Patient requires skilled occupational therapy services to address listed deficitsand to maximize safety and independence with overall occupational performance and participation prior to discharge. Barriers to Discharge Home: Current functional status, Safety concerns, Fall risk Barriers to Discharge Comments: Requires assist of two for mobilizing Comorbid Conditions: Other (Comment), Cerebrovascular accident (see [facility] for full medical history) Personal Factors: Balance impairment, Communication deficit, Hand dominance, History of falls, Needsassistive device, Safety awareness Discharge Therapy Needs - OT: Ongoing skilled occupational therapy Level of Care Needed - OT: Assistance with toileting, Assistance with toilet/shower transfers, Assistance with medication set up/administration, Assistance with showering/bathing, Assistance with dressing, Physical assistance needed, Assistance with meal preparation, Assistance with student financial services counselor, Assistance with transportation, Assistance with housekeeping, Assistance with shopping, Cognitiveassistance needed, Assistance with eating/feeding Functional Goals and Timeframes: OT Goal #1: STG: Pt will complete stand pivot commode transfer with moderate assistance x2. OT Goal #2: STG: Patient will complete LB dressing with use of adaptive equipment with moderate assist of 1. OT Goal #3: STG: Pt will be able to maintain standing with adaptive setup and moderate assistance toallow caregiver to safely assist with clothing management for self cares and to participate in grooming tasks. OT Goal #4: LTG: Pt's spouse will verbalize understanding on safe mechanics and DME for patient to continue to participate with ADL cares. Progress: Progressing toward goals Plan Patient agrees with the plan of care and goals. Treatment Plan: OT Frequency: 6 times per week OT Amount: 2 visits per day OT Inpatient Duration : Until goals are met or hospital discharge Plan: Continue with current plan Treatment interventions may include: Treatment Interventions: Therapeutic exercise, Therapeutic functional activity, Neuromuscular re-education, Self-care/home management Therapeutic Interventions Home Management Training (min): 60 min Neuromuscular Re-Education (min): 15 min Orthotic Mgmt Initial (min): 15 min Time Tracking Total Timed Units (min): 90 min Total Treatment Time (min): 90 min OT Individual: 90 Minutes Marianela Veliz M.S., O.T. Niyah Early M.D. - 09/11/2021 7:42 AM CDT SUBJECTIVE Mrs. Aurora Langley is a 76-year-old, right-handed, Barbadian-speaking woman with past medical history of TBI with residual posttraumatic epilepsy, right spastic hemiparesis and expressive aphasia s/p SKY LINE YARDER shunt (1995) and lumbar spinal stenosis now status post L2-L5 lumbar laminectomy on 09/02/[address] Castellon. She is admitted to acute inpatient rehabilitation for lower extremity weakness and impairments in gait and ADL performance. Mrs. Langley slept in her preferred pajamas last night, the yellow [employer] pol[employer], and reports that she was comfortable and less restless than any other nights in the hospital. She denied any pain or discomfort this morning. She and Mr. Langley are pleased with the progress that she has been making with therapy. Photos of the home set up are in her room for review to make more specific recommendationsfor home going equipment. Presently, we are leaning toward a lightweight wheelchair for mobility. They are looking into acquiring a Shannan Steady. OT is finishing up adjustments for a resting hand splintto be worn overnight. All questions and concerns were addressed to the best of my ability. OBJECTIVE Temperature: [36.7 ??C] 36.7 ??C Resp Rate: [16] 16 Blood Pressure: (106-116)/(57-65) 116/65 SpO2: [94 %-95 %] 94 % Last Stool Occurrence: 1 (09/11/21 0415 : Beth Langston, RMyeshaN.) Intake/Output Summary (Last 24 hours) at 09/11/2021 0742 Last data filed at 09/11/2021 0607 Gross per 24 hour Intake 890 ml Output -- Net 890 ml Bowel Incontinence: No (09/11/21 0415 : Beth Langston RMyeshaNMyesha) Unmeasured Urine Occurrence: 1 (09/11/21 0607 : Beth Langston R.N.) Urinary Incontinence: No (09/11/21 0607 : Beth Langston R.N.) Physical Exam: General: Pleasant woman, seated up to chair at bedside waiting for breakfast to be delivered to room HEENT: Normocephalic, atraumatic. Hearing grossly intact. Cardiovascular: Hemodynamically stable Respiratory: No dyspnea or use of accessory muscles. Respiratory rate as noted above in vital signs. Abdomen: Soft, nondistended. Skin: No rashes or lesions appreciated on exposed areas of skin. Posterior midline incision well healed without drainage. Neuro Exam: Mental Status: Grossly oriented. Alert. Appropriate mood and affect. Language: Expressive aphasia, assists intermittently in helping her come up with the words to say, translates into Barbadian for her when needed Extremities: [place] Islander knee cage brace on right knee and ankle brace on right ankle. Right upper extremity held in flexion position which is baseline. Diagnostics I reviewed the imaging studies and agree with the interpretation as recorded. I reviewed the pertinent laboratory data and diagnostic data. ASSESSMENT / PLAN Mrs. Aurora Langley is a 76-year-old, right-handed, Barbadian-speaking woman with past medical history of TBI with residual posttraumatic epilepsy, right spastic hemiparesis and expressive aphasia s/p SKY LINE YARDER shunt (1995) and lumbar spinal stenosis now status post L2-L5 lumbar laminectomy on 09/02/[address] Castellon. She is admitted to acute inpatient rehabilitation for lower extremity weakness and impairments in gait and ADL performance. Plan for Today (09/11/21): - Incision site with appropriate interval healing - Continue with multidisciplinary inpatient rehabilitation # Lumbar spinal stenosis with neurogenic claudication s/p L2-L5 laminectomy (09/02/21) # Progressive lower limb weakness # Gait unsteadiness # History of TBI resulting in spastic right hemiparesis, posttraumatic epilepsy and expressive aphasia - Comprehensive PT/OT - Restrictions: 15-20 pound lifting restriction and no heavy lifting, twisting or bending for 6 weeks post-op which will be May - Pain control regimen includes: Tylenol 1000 mg every 6 hours as needed - Continue home seizure medication regimen: carbamazepine 500 mg twice daily levetiracetam 500 mg every morning, 250 mg with lunch, 500 mg every evening folic acid 1,000 mcg daily - Neurosurgery will coordinate outpatient follow-up - Neurology consult recommended continuing at home doses of carbamazepine and levetiracetam - has diazepam PRN to be given only if having seizure-like activity for >5 minutes (one eye closed, face-glossing over, right eyelid twitching, and NOT responding or following commands), can be given 2x for a total of 10 mg if not responsive to first dose ?? # Hyperlipidemia - Continue home atorvastatin 10 mg every 48 hours - Continue home aspirin 81 mg daily ?? FULL CODE as discussed with patient. Surgical Incision Bantam: can be removed 14 days post-op (09/16) Diet: Regular DVT prophylaxis: Lovenox Bowel: bowel medication regimen as needed Bladder: currently voiding at her baseline Disposition: anticipate discharge September 22; goal to home with family support ?? Please contact the [facility] [place] [place] [phone] with any questions or concerns. Niyah Early M.D. PM&R, PGY-2 Associated attestation - Laura Cardenas M.D. - 09/11/2021 12:17 PM CDT I saw and evaluated the patient, participating in the trinh portions of the service. I reviewed the resident/fellow???s note. I agree with the resident/fellow???s findings and plan. Ms. Langley is capable of participating in rehabilitation. She continues to progress towards functional independence in the area(s) of mobility and self- care and will benefit from ongoing intensive inpatient rehabilitation. She was seen at bedside. Her indicates that her sleep was improved. Surgical incision was examined and picture uploaded. This looks excellent. Anticipate stable removal next week. She continues to have baseline incontinence. She feels like her pain is under good control. She continues to work well with therapy services. She is working on strengthening with partial sit to stands with PT. OT is working on mobility related ADLs as well as splinting options. She does continue to require max assist for [id number] transfers with use of a Thera steady although this is improving. She is having more difficulty with lower transfers. Her is looking at purchase of a Shannan Stedy. He brought pictures of his home. He is most concerned about access in the bedroom. He will continue to troubleshoot with the therapist. I personally spent over half of a total 15 minutes in counseling and discussion with the patient andcoordination of care as described above. Diana Christopher MDIV - 09/10/2021 11:07 AM CDT Encounter: Unit Ministry Situation: Mrs. Shivam Git, is a pleasant, Barbadian-speaking woman with a medical history of TBI and residual conditions. Presently, she is in post- surgical rehabilitation therapy. Family: , Kirk, is a primary support. The couple have many friends and support systems in [facility] and [place]. Carole Tradition: Jain - Yarsanism. When Mrs. Langley was a patient in the late the coupleattended oriental orthodox at [facility], which is a significant place to their carole journey. They attend the live-broadcast of [employer] oriental orthodox through [facility] [employer]. The designer writer gave them a schedule of oriental orthodox services and resources for prayer and devotion. Spiritual Assessment: Carole is a strong asset to Mrs. Langley's resiliency and hope. She finds strength and courage for maintaining a stoic, positive outlook for fully living life. Prayer was welcomedand provided concerning strength, healing, and hope. 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 The hope is to prolong the need for halfway care. Spiritual care visits are appreciated. Plan: Patient and family were informed of 03/01 spiritual care availability. Will remain available for spiritual care as needed or requested. Chaplains can be contacted by [employer] [phone] ([place]). Amparo Farmer P.T., D.P.T. - 09/10/2021 10:30 AM CDT [facility] SUBJECTIVE Patient's Name: Aurora Langley Reason for Referral: PT Evaluate and Treat: Inpatient rehabilitation Medical Diagnosis: 1. Lack Of Coordination 2. Decline Functional Status 3. Imbalance Non Orthopedic 4. Weakness General History of Present Illness: Patient is s/p L2-L5 laminectomies for lumbar stenosis with gait instability by Dr. 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 No complaints, reports feeling alright. Precautions Other Precautions: fall, history of TBI, expressive aphasia, no functional use of RUE, R inattention, uses R AFO and knee brace for ambulation OBJECTIVE R knee cage and ankle brace donned prior to arrival and donned throughout session Pain: None reported Vitals: Not indicated at this time Therapeutic Activity: Bed Mobility - Supine to Sit # of Assistants: 1 Level of Assistance: Maximal assistance Device: None Cuing: Verbal, Tactile Comments: Requires assistance at trunk and bilateral lower extremities Bed Mobility - Sit to Supine # of Assistants: 1 Level of Assistance: Maximal assistance Device: None Cuing: Verbal, Tactile Sit to Stand Transfers # of Assistants: 2 (1-2) Transfer Surface: Wheelchair, Bed (NuStep) Transfer Equipment: Gait belt, Sit to stand machine, Single rail (Shannan Stedy) Level of Assistance: Maximal assistance Assessment/Delivery: Assessed, Instructed, Therapist assisted, Facilitated Comments: Step by step cues for set-up and sequencing. Requires assistance to reach left hand for cross bar and for positioning feet. Moderate to maximal assistance of two to power up to stand, facilitate hip extension and upright posture. Requires increased assistance when standing from lower seat heights such as manual wheelchair. Completed 3 sit to stands at kemi rail with PT anteriorly blocking knees and lifting at posterior hips, requiring maximal assistance x1. Requiring moderate to maximal assistance to maintain upright standing at kemi rail full knee block and facilitation of terminal hip ex tension. Stand to Sit Transfers # of Assistants: 2 (1-2) Transfer Surface: Wheelchair, Bed (NuStep) Transfer Equipment: Gait belt, Sit to stand machine (Shannan Stedy) Level of Assistance: Maximal assistance Assessment/Delivery: Assessed, Instructed, Educated, Therapist assisted, Facilitated Comments: Facilitation for slow controlled eccentric descent. Bed, Chair, Wheelchair Transfers # of Assistants: 2 (1-2) Transfer Surface: Bed, Wheelchair (NuStep) Transfer Approach: Low/squat pivot, To, To the left Level of Assistance: Total assistance, Maximal assistance Assessment/Delivery: Therapist assisted, Assessed, Instructed, Educated, Facilitated Comments: Performing majority of transfers with use of Shannan Stedy. Additionally facilitated low pivot transfers with PT assisting anteriorly blocking knees and helping lift at posterior hips. Neuromuscular Re-education: Balance Retraining Static Standing Balance: Static standing, Lateral weight shifts Static Standing Balance Comments: Worked on static standing at kemi rail with focus on upright posture with hip and knee extension. Patient requiring maximal assistance to block R knee and mod-maxA to facilitate hip extension. Tolerated standing 20-30 seconds before fatiguing, completed x3 repetitions. Able to facilitate small lateral weight shifts with maximal assistance for technique. In afternoon session, facilitated sit to stands from paddles of Shannan Stedy, patient able to progress to completingstands with contact guard assistance. Able to maintain standing position for 30-40 seconds and progressed to small steps (L>R) in place within Shannan Stedy. Therapeutic Exercise: Seated Exercise - Side Addressed: Bilateral Sitting Surface: Wheelchair Seated Exercise: Hip abduction/adduction, Marching, Long arc quads, Knee flexion (Hip adductor pillow squeezes) Exercise Mode: Elastic band (comment), Active motion against gravity ([place]inton resistance band utilized for long-arc quads, knee flexion, and hip abduction exercises) Sets/Repetitions: x10-15 each Seated Exercise Comments: Facilitated with skilled verbal and visual cues for appropriate performance and range of motion. Equipment Use Nu Step Comments: NuStep: Bilateral lower and left upper extremity x 5 minutes on level 1 for increased strength, cardiovascular endurance, and joint mobility. Averaged 35 steps per minute, traveled 0.10 miles. Required one rest break nursing home. PT providing light tactile assistance to maintain neutral alignment of R knee. Patient reported use of NuStep was easy, but notes she does not enjoy it. ROM/Stretching Lower Extremity ROM/Stretching-Side Addressed: Bilateral LE ROM/Stretching Position: Seated LE ROM Comments: PT facilitated bilateral hamstring and heel cord stretches. Wheelchair Management: Wheelchair Propulsion #1 Propulsion Type : Manual Method: Left upper extremity, Left lower extremity Terrain Description: Smooth level surface Level of Assistance: Minimal assistance Assessment/Treatment: Assessed, Instructed, Educated, Therapist assisted Propulsion Comments: Continued to work on wheelchair propulsion skills with patient demonstrating improved carry over and understanding of technique today. Able to propel about 15 feet in straight pathwith verbal cues and minimal assistance. Will require further education to work on sequencing upper extremity and lower extremity together with propulsion. Patient/Family Education: Rationale for given interventions; progression of mobility; reviewed pictures of patient's home with patient's spouse, discussing wheelchair accessibility and how the Shannan Biswas will move over carpet. Education Provided to: Aurora and spouse, Kirk Learner's Response: Able to demonstrate At the end of today's therapy session patient was left in bed with spouse present with an appropriate call light within reach. Patient's needs and questions addressed during today's session. Contact monitoring: PPE used during therapy: Therapist was wearing the following PPE throughout entire session: surgicalmask and eye protection Patient was wearing a mask during therapy session: when out of room Family member/caregiver present was wearing a mask: when out of room Assessment Patient pleasant and participative in physical therapy. Aurora demonstrated increased initiative withfunctional transfers and standing balance today, she was able to progress to standing for longer periods of time, increase overall repetitions and requires slightly less physical assistance. Overall, she fatigues relatively quickly, benefitting from intermittent rest breaks to maximize participation. She was able to progress to standing from the paddles of the Shannan Stedy with contact guard assistancetoday, typically requires less physical assistance with repeated repetitions. Overall Aurora is making slow, but steady progress towards functional goals. She remains below her??functional baseline and will continue to benefit from intensive rehabilitation services in a multidisciplinary setting to optimize her??independence and achieve her??team goals. Barriers to Discharge Home: Current functional status, Safety concerns, Fall risk Barriers to Discharge Comments: Requires assist of two for mobilizing Comorbid Conditions: Other (Comment), Cerebrovascular accident (see [facility] for full medical history) Personal Factors: Balance impairment, Communication deficit, Hand dominance, History of falls, Needsassistive device, Safety awareness Discharge Therapy Needs - PT: Ongoing skilled physical therapy Level of Care Needed - PT: Assistance with transfers (Comment), Assistance with walking and moving around the home, Assistance with bed mobility, Cognitive assistance needed Equipment Recommended - PT: Other (Comment), Wheelchair (Shannan Stedy may be beneficial for transfers/etc.; patient only has standard manual wheelchair available, may benefit from ordering custom wheelchair) Functional Goals and Timeframes: PT Goal #1: Patient and spouse will be able to perform bed mobility using no hospital bed features with Min A x1 in order to increase independence in home. PT Goal #1 Date: 09/12/21 PT Goal #1 Status: Slowly progressing PT Goal #2: Patient will be able to complete sit to/from stand transfer using Shannan Stedy or most appropriate gait device with Mod A x1 in order to improve household mobility. PT Goal #2 Date: 09/12/21 PT Goal #2 Status: Progressing PT Goal #3: At discharge, patient will be able to perform stand pivot transfer using least restrictive device with Mod A x1 in order to improve household mobility. PT Goal #3 Date: 09/19/21 PT Goal #3 Status: Slowly progressing PT Goal #4: Patient will demonstrate ability to maintain unsupported sitting at least 10 minutes to improve mobility and safety. PT Goal #4 Date: 09/19/21 PT Goal #4 Status: Progressing Progress: Slow progress, limited activity tolerance Plan Patient agrees with the plan of care and goals. Treatment Plan: PT Frequency: 6 times per week PT Amount: 2 visits per day PT Inpatient Duration : Until goals are met or hospital discharge Plan: Continue with current plan PT Plan Comments: Continue progression towards improved participation and safety with functional mobility. Progress towards mobility with Ax1 with caregiver training. Treatment interventions may include: Treatment/Interventions: Therapeutic exercise, Therapeutic functional activity, Neuromuscular re-education, Gait training, Self-care/home management, Orthosis [id number] Time Spent with Patient Therapeutic Interventions Neuromuscular Re-Education (min): 15 min Therapeutic Activity (min): 40 min Therapeutic Exercise (min): 25 min Wheelchair Management (min): 10 min Time Tracking Total Timed Units (min): 90 min Total Treatment Time (min): 90 min PT Individual : 90 Minutes Amparo Farmer P.T., Cristian.P.TMyesha Carolina Veliz M.S., O.T. - 09/10/2021 8:55 AM CDT Occupational Therapy Rehabilitation [facility] Inpatient Progress Note SUBJECTIVE Patient's Name: Aurora Langley Reason for Referral: Occupational therapy treat Medical Diagnosis: 1. Lack Of Coordination 2. Decline Functional Status 3. Imbalance Non Orthopedic 4. Weakness General History of Present Illness: Patient is s/p L2-L5 laminectomies for lumbar stenosis with gait instability by Dr. 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 Precautions Other Precautions: fall, history of TBI, expressive aphasia, no functional use of RUE, R inattention, uses R AFO and knee brace for ambulation Fall Risk (65 and older) Fall in the last 12 months: Yes Did you have an injury with the fall?: No Are you fearful of falling?: Yes OBJECTIVE Pain: none indicated during OT sessions on this date. Vitals: Not indicated at this time Activities of daily living: Bed, Chair, Wheelchair Transfers Transfer Surface: Bed, Wheelchair Transfer Approach: To Transfer Equipment: Sit to stand machine (shannan stedy) Level of Assistance: Total assistance (max assist x2) Assessment/Delivery: Therapist assisted Max assist x2 sit<>stand with use of shannan stedy. For the transfer, one person stabilizing at trunk and one person maneuvering the shannan stedy. Bed mobility: x2 moderate assist for short sitting at edge of bed to supine and positioning in preferred right sidelying, max assist x2 for boosting up in bed. Orthotics Management: Adjustments made to the ulnar border of the orthosis at the wrist/ hand. Appearing to clear the sideof the hand better with this adjustment to decrease risk for pressure spot formation. During 15 minute trial wear in the afternoon session, patient was noted to continue to have slight redness (blanchable to touch). Will continue to modify prior to issuing to the patient to optimize skin protection. Therapeutic Exercise: Prior to adjustment of the orthosis, therapist facilitated low load stretching at the wrist through digits to enhance fitting of the orthosis, with education provided on performing prior when donning outside of therapy times. Therapeutic Activity: Therapeutic Functional Activity Position: Standing Task Component(s): Reaching Descriptor(s): Using left hand Physical Assistance Required: Minimal assistance, Maximal assistance Cuing Required: Verbal, Visual, Tactile Cuing Comments: Max cuing for posture and alignment when reaching. Therapeutic Functional Activity Comments: Facilitation of therapeutic activity in standing for 30 minutes to progress patient's standing activity tolerance. Use of shannan stedy to grade standing challenge, with 3 repetitions of full stands incorporated for 20 or < seconds. Completing tasks requiring dynamic reaching with LUE from partial standing position on the Shannan Stedy, requiring steadying assistance at the trunk. Max assist for sit<>stands x1-2 helpers. Placement of a small ball between her knees when up in the shannan stedy to better align her LE's to neutral as her RLE is appreciated to internally rotate toward her LLE at rest. Education Provided to: Aurora and spouse Learner's Response: Requires cueing and Requires continued education At the end of today's therapy session patient was left in bed with an appropriate call light within reach. Patient's needs and questions addressed during today's session. Contact monitoring: PPE used during therapy: Therapist was wearing the following PPE throughout entire session: surgicalmask and eye protection Patient was wearing a mask during therapy session: yes Family member/caregiver present was wearing a mask: yes Additional Staff Present During Session: None Assessment Aurora continues to work hard in therapy and has good support from her spouse. She is requiring max assist x1-2 for sit<>stand and functional transfers with use of the Shannan stedy. Will continue toassess and adjust her resting hand orthosis to ensure optimal fit and wear schedule. Progressing forstanding tolerance; performing functional reaching activity in modified partial standing position with Shannan Stedy for 30 minutes (max assist for 3 full stands for 20 seconds or less). All of the above and previously listed impairments (please see EMR/ initial OT evaluation for further detail) significantly impact her ability to safely and independently complete activities of daily living and mobility. Patient requires skilled occupational therapy services to address listed deficitsand to maximize safety and independence with overall occupational performance and participation prior to discharge. Barriers to Discharge Home: Current functional status, Safety concerns, Fall risk Barriers to Discharge Comments: Requires assist of two for mobilizing Comorbid Conditions: Other (Comment), Cerebrovascular accident (see [facility] for full medical history) Personal Factors: Balance impairment, Communication deficit, Hand dominance, History of falls, Needsassistive device, Safety awareness Discharge Therapy Needs - OT: Ongoing skilled occupational therapy Level of Care Needed - OT: Assistance with toileting, Assistance with toilet/shower transfers, Assistance with medication set up/administration, Assistance with showering/bathing, Assistance with dressing, Physical assistance needed, Assistance with meal preparation, Assistance with student financial services counselor, Assistance with transportation, Assistance with housekeeping, Assistance with shopping, Cognitiveassistance needed, Assistance with eating/feeding Functional Goals and Timeframes: OT Goal #1: STG: Pt will complete stand pivot commode transfer with moderate assistance x2. OT Goal #2: STG: Patient will complete LB dressing with use of adaptive equipment with moderate assist of 1. OT Goal #3: STG: Pt will be able to maintain standing with adaptive setup and moderate assistance toallow caregiver to safely assist with clothing management for self cares and to participate in grooming tasks. OT Goal #4: LTG: Pt's spouse will verbalize understanding on safe mechanics and DME for patient to continue to participate with ADL cares. Progress: Progressing toward goals Plan Patient agrees with the plan of care and goals. Treatment Plan: OT Frequency: 6 times per week OT Amount: 2 visits per day OT Inpatient Duration : Until goals are met or hospital discharge Plan: Continue with current plan Treatment interventions may include: Treatment Interventions: Therapeutic exercise, Therapeutic functional activity, Neuromuscular re-education, Self-care/home management Therapeutic Interventions Home Management Training (min): 15 min Orthotic Mgmt Initial (min): 25 min Orthotic Mgmt Subsequent (min): 15 min Therapeutic Activity (min): 30 min Therapeutic Exercise (min): 6 min Time Tracking Total Timed Units (min): 91 min Total Treatment Time (min): 91 min OT Individual: 91 Minutes Marianela Veliz M.S., O.T. Niyah Early M.D. - 09/10/2021 7:38 AM CDT SUBJECTIVE Mrs. Aurora Langley is a 76-year-old, right-handed, [place]-speaking woman with past medical history of TBI with residual posttraumatic epilepsy, right spastic hemiparesis and expressive aphasia s/p SKY LINE YARDER shunt (1995) and lumbar spinal stenosis now status post L2-L5 lumbar laminectomy on 09/02/[address] Castellon. She is admitted to acute inpatient rehabilitation for lower extremity weakness and impairments in gait and ADL performance. Mrs. Langley reports feeling well this morning. We reviewed that her preference is to wear a flannel shirt from home to sleep as opposed to the hospital gown she has been wearing lately, I will communicate this to her nursing team today. She denies any pain or discomfort this morning. All questions and concerns were addressed to the best of my ability. OBJECTIVE Temperature: [36.8 ??C-37 ??C] 36.8 ??C Resp Rate: [14] 14 Blood Pressure: (122-125)/(61-64) 125/64 SpO2: [94 %-96 %] 96 % Last Stool Occurrence: 1 (09/09/21 1500 : Felicita Boyd, R.N.) Intake/Output Summary (Last 24 hours) at 09/10/2021 0739 Last data filed at 09/10/2021 0500 Gross per 24 hour Intake 1270 ml Output 100 ml Net 1170 ml Bowel Incontinence: No (09/09/21 1500 : Felicita Boyd, R.N.) Unmeasured Urine Occurrence: 1 (09/10/21 0500 : [facility]., [facility] Urinary Incontinence: Yes (09/10/21 0500 : Theo Mckeon, R.N., [facility]) Physical Exam: General: Pleasant woman, seated up to chair at bedside on FaceTime with a friend in [place], no acute distress HEENT: Normocephalic, atraumatic. Hearing grossly intact. Cardiovascular: Hemodynamically stable Respiratory: No dyspnea or use of accessory muscles. Respiratory rate as noted above in vital signs. Abdomen: Soft, nondistended. Skin: No rashes or lesions appreciated on exposed areas of skin. Neuro Exam: Mental Status: Grossly oriented. Alert. Appropriate mood and affect. Language: Expressive aphasia, assists intermittently in helping her come up with the words to say, translates into [place] for her when needed Extremities: [place] knee cage brace on right knee and ankle brace on right ankle. Right upper extremity held in flexion position which is baseline. Diagnostics I reviewed the imaging studies and agree with the interpretation as recorded. I reviewed the pertinent laboratory data and diagnostic data. September 10, 2021 CBC demonstrates hemoglobin 11.0, platelets 429 ASSESSMENT / PLAN Mrs. Aurora Langley is a 76-year-old, right-handed, [place]-speaking woman with past medical history of TBI with residual posttraumatic epilepsy, right spastic hemiparesis and expressive aphasia s/p SKY LINE YARDER shunt (1995) and lumbar spinal stenosis now status post L2-L5 lumbar laminectomy on 09/02/[address] Castellon. She is admitted to acute inpatient rehabilitation for lower extremity weakness and impairments in gait and ADL performance. Plan for Today (09/10/21): - Will communicate request to wear flannel shirt to bed rather than hospital gown - Continue with multidisciplinary inpatient rehabilitation - Photo update of posterior incision - CBC demonstrates hemoglobin improved to 11.0 # Lumbar spinal stenosis with neurogenic claudication s/p L2-L5 laminectomy (09/02/21) # Progressive lower limb weakness # Gait unsteadiness # History of TBI resulting in spastic right hemiparesis, posttraumatic epilepsy and expressive aphasia - Comprehensive PT/OT - Restrictions: 15-20 pound lifting restriction and no heavy lifting, twisting or bending for 6 weeks post-op which will be October 14 - Pain control regimen includes: Tylenol 1000 mg every 6 hours as needed - Continue home seizure medication regimen: carbamazepine 500 mg twice daily levetiracetam 500 mg every morning, 250 mg with lunch, 500 mg every evening folic acid 1,000 mcg daily - Neurosurgery will coordinate outpatient follow-up - Neurology consult recommended continuing at home doses of carbamazepine and levetiracetam - has diazepam PRN to be given only if having seizure-like activity for >5 minutes (one eye closed, face-glossing over, right eyelid twitching, and NOT responding or following commands), can be given 2x for a total of 10 mg if not responsive to first dose ?? # Hyperlipidemia - Continue home atorvastatin 10 mg every 48 hours - Continue home aspirin 81 mg daily ?? FULL CODE as discussed with patient. Surgical Incision B[place]: can be removed 14 days post-op (09/16) Diet: Regular DVT prophylaxis: Lovenox Bowel: bowel medication regimen as needed Bladder: currently voiding at her baseline; will perform I&O catheterization if indicated Disposition: anticipate discharge September 22; goal to home with family support ?? [place] contact the [facility] [place] [phone] with any questions or concerns. Niyah Early M.D. PM&R, PGY-2 Associated attestation - Laura Cardenas M.D. - 09/10/2021 5:39 PM CDT I saw and evaluated the patient, participating in the trinh portions of the service. I reviewed the resident/fellow???s note. I agree with the resident/fellow???s findings and plan. Ms. Langley is capable of participating in rehabilitation. She continues to progress towards functional independence in the area(s) of mobility, self-care, and cognition and will benefit from ongoing intensive inpatient rehabilitation. She continues to participate well in therapy. She denies pain. She denies any new neurologic symptoms. She continues to work closely with therapy on improving Shannan Steady transfers. These continue to require a 2 person of this. Her is investigating purchasing a Shannan Steady for home going. At this point, we continue to monitor her fluid intake and vital signs. Her pain appears to be well controlled off of prescription pain medications. We will monitor that closely. We are going to get updated pictures of her surgical incision. I personally spent over half of a total 20 minutes in counseling and discussion with the patient andcoordination of care as described above. Amparo Farmer P.T., D.P.T. - 09/09/2021 10:30 AM CDT [facility] SUBJECTIVE Patient's Name: Aurora Langley Reason for Referral: PT Evaluate and Treat: Inpatient rehabilitation Medical Diagnosis: 1. Lack Of Coordination 2. Decline Functional Status History of Present Illness: Patient is s/p L2-L5 laminectomies for lumbar stenosis with gait instability by Dr. 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 Precautions Other Precautions: fall, history of TBI, expressive aphasia, no functional use of RUE, R inattention, uses R AFO and knee brace for ambulation OBJECTIVE R knee cage and ankle brace donned prior to arrival and donned throughout session Pain: None reported Vitals: Not indicated at this time Therapeutic Activity: Facilitated several transfers throughout AM and PM sessions. Bed Mobility - Sit to Supine # of Assistants: 1 Level of Assistance: Maximal assistance Device: None Cuing: Verbal, Tactile Sit to Stand Transfers # of Assistants: 2 (1-2) Transfer Surface: Wheelchair, Therapy mat, Bed, Toilet/Commode (Nustep) Transfer Equipment: Gait belt, Sit to stand machine (Shannan Stedy) Level of Assistance: Maximal assistance Assessment/Delivery: Assessed, Instructed, Therapist assisted, Facilitated Comments: Step by step cues for set-up and sequencing. Requires assistance to reach left hand for cross bar and for positioning feet. Moderate to maximal assistance of two to power up to stand, facilitate hip extension and upright posture. Requires increased assistance when standing from lower seat heights such as manual wheelchair. Stand to Sit Transfers # of Assistants: 2 (1-2) Transfer Surface: Wheelchair, Bed, Therapy mat, Toilet/Commode Transfer Equipment: Gait belt, Sit to stand machine (Shannan Stedy) Level of Assistance: Maximal assistance Assessment/Delivery: Assessed, Instructed, Educated, Therapist assisted, Facilitated Comments: Facilitation for slow controlled eccentric descent. Bed, Chair, Wheelchair Transfers # of Assistants: 2 (1-2) Transfer Surface: Bed, Wheelchair (NuStep; Therapy Mat; Commode) Transfer Approach: Low/squat pivot, To, To the left Level of Assistance: Total assistance, Maximal assistance Assessment/Delivery: Therapist assisted, Assessed, Instructed, Educated, Facilitated Comments: Facilitated low pivot transfer wheelchair to bed with PT assisting anteriorly blocking knees and helping lift at posterior hips. Patient's spouse posterior to assist with guiding hips over tobed as needed, mainly providing supervision assist. Discussed different strategies for low pivot transfers, demonstrating technique with patient's spouse. In PM, facilitated low pivot from mat to wheelchair with maximal assist x1. Additionally facilitated transfer with Shannan Biswas, performing over carpetted surface - Shannan Stedy moved well over low pile carpet, patient's spouse notes their carpet is a little thicker at home. Therapeutic Exercise: Seated Exercise - Side Addressed: Bilateral Sitting Surface: Mat Seated Exercise Comments: While sitting at edge of therapy mat, kicked soccer ball back and forth, working on engaging both right and left lower extremity with focus on strength and range of motion. Required cues to engage right leg. Equipment Use Nu Step Comments: NuStep: Bilateral lower and left upper extremity x 4 minutes on level 1 for increased strength, cardiovascular endurance, and joint mobility. Averaged 36 steps per minute, traveled 0.08 miles. Required frequent rest breaks every 30 seconds to 1 minute due to fatigue. PT providing light tactile assistance to maintain neutral alignment of R knee. Wheelchair Management: Wheelchair Propulsion #1 Propulsion Type : Manual Method: Left upper extremity, Left lower extremity Terrain Description: Smooth level surface Level of Assistance: Moderate assistance Assessment/Treatment: Assessed, Instructed, Educated, Therapist assisted Propulsion Comments: Educated patient and spouse on wheelchair propulsion technique with use of leftupper extremity and lower extremity. Patient with difficulty comprehending cues initially, but able to understand as we practiced. Did better utilizing left upper extremity to propel, difficulty propelling in straight path. Patient/Family Education: Rationale for given interventions; techniques with functional mobility; wheelchair propulsion strategy; physical therapy plan of care Education Provided to: Aurora and spouseKirk Learner's Response: Able to demonstrate and Requires cueing At the end of today's therapy session patient was left in bed with the bed alarm on with an appropriate call light within reach. Patient's needs and questions addressed during today's session. Contact monitoring: PPE used during therapy: Therapist was wearing the following PPE throughout entire session: surgicalmask and eye protection Patient was wearing a mask during therapy session: when out of room Family member/caregiver present was wearing a mask: when out of room Assessment Patient pleasant and participative in physical therapy. Aurora is demonstrating improvement with set-up for transfers with Shannan Stedy, requiring less cues and assistance. Continues to require maximal assistance of 1-2 people, and moderate to maximal assistance to maintain standing position within Shannan Stedy. She is also tolerating low pivot transfers well, but is primarily dependent with these transfers and isn't able to assist much. Trialed the NuStep, patient tolerating fairly well, becoming fatigued quickly, but able to work up to 4 minutes total. Aurora??remains below her??functional baseline andwill continue to benefit from intensive rehabilitation services in a multidisciplinary setting to optimize her??independence and achieve her??team goals. Barriers to Discharge Home: Current functional status, Safety concerns, Fall risk Barriers to Discharge Comments: Requires assist of two for mobilizing Comorbid Conditions: Other (Comment), Cerebrovascular accident (see [facility] for full medical history) Personal Factors: Balance impairment, Communication deficit, Hand dominance, History of falls, Needsassistive device, Safety awareness Discharge Therapy Needs - PT: Ongoing skilled physical therapy Level of Care Needed - PT: Assistance with transfers (Comment), Assistance with walking and moving around the home, Assistance with bed mobility, Cognitive assistance needed Equipment Recommended - PT: Other (Comment), Wheelchair (Shannan Stedy may be beneficial for transfers/etc.; patient only has standard manual wheelchair available, may benefit from ordering custom wheelchair for patient) Functional Goals and Timeframes: PT Goal #1: Patient and spouse will be able to perform bed mobility using no hospital bed features with Min A x1 in order to increase independence in home. PT Goal #1 Date: 09/12/21 PT Goal #1 Status: Slowly progressing PT Goal #2: Patient will be able to complete sit to/from stand transfer using Shannan Stedy or most appropriate gait device with Mod A x1 in order to improve household mobility. PT Goal #2 Date: 09/12/21 PT Goal #2 Status: Progressing PT Goal #3: At discharge, patient will be able to perform stand pivot transfer using least restrictive device with Mod A x1 in order to improve household mobility. PT Goal #3 Date: 09/19/21 PT Goal #3 Status: Slowly progressing PT Goal #4: Patient will demonstrate ability to maintain unsupported sitting at least 10 minutes to improve mobility and safety. PT Goal #4 Date: 09/19/21 PT Goal #4 Status: Progressing Progress: Slow progress, limited activity tolerance Plan Patient agrees with the plan of care and goals. Treatment Plan: PT Frequency: 6 times per week PT Amount: 2 visits per day PT Inpatient Duration : Until goals are met or hospital discharge Plan: Continue with current plan PT Plan Comments: Continue progression towards improved participation and safety with functional mobility. Progress towards mobility with Ax1 with caregiver training. Treatment interventions may include: Treatment/Interventions: Therapeutic exercise, Therapeutic functional activity, Neuromuscular re-education, Gait training, Self-care/home management, Orthosis [id number] Time Spent with Patient Therapeutic Interventions Therapeutic Activity (min): 65 min Therapeutic Exercise (min): 15 min Wheelchair Management (min): 10 min Time Tracking Total Timed Units (min): 90 min Total Treatment Time (min): 90 min PT Individual : 90 Minutes Amparo Farmer P.T., D.P.T. Carolina Veliz M.S., O.T. - 09/09/2021 8:40 AM CDT [facility] Progress Note SUBJECTIVE Patient's Name: Aurora Langley Reason for Referral: Occupational therapy treat Medical Diagnosis: 1. Lack Of Coordination 2. Decline Functional Status 3. Imbalance Non Orthopedic 4. Weakness General History of Present Illness: Patient is s/p L2-L5 laminectomies for lumbar stenosis with gait instability by Dr. 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 Onset Date: 09/02/21 Patient/Caregiver Goals: Be able to complete cares with support of spouse to return home Precautions Other Precautions: fall, history of TBI, expressive aphasia, no functional use of RUE, R inattention, uses R AFO and knee brace for ambulation Fall Risk (65 and older) Fall in the last 12 months: Yes Did you have an injury with the fall?: No Are you fearful of falling?: Yes OBJECTIVE Pain: None reported by the patient during OT session, and no overt signs of pain were exhibited. Vitals: Not indicated at this time This was this therapist's first time meeting and working with the patient and her family, thus time was spent during the morning session building rapport. Cognition Arousal/Alertness: Delayed responses to stimuli Attention: Impairments noted Sustained: Mild Right Neglect: Moderate Initiation: Slow/delayed initiation Following Commands: Inconsistently following commands Following Commands Comments: Patient is able to follow single step commands inconsistently with increased time and repetition. Does best with more complex commands when is able to interpret into [place]. Safety/Judgment: Impairments noted Cognition Comments: known deficits from previous TBI. Able to understand most [place], able to respond to many yes/no questions appropriately with increased time and repetition. ?? Activities of daily living: Bed Mobility - Supine to Sit # of Assistants: 1 Level of Assistance: Minimal assistance Device: Bed rail, Head of bed elevated Cuing: Verbal, Tactile Comments: cuing provided for hand placement and for sequencing throughout the transfer to maintain spinal alignment and precautions. Minimal physical assistance required to get up to the right side of the bed. Bed, Chair, Wheelchair Transfers Transfer Surface: Bed, Wheelchair Transfer Approach: To Transfer Equipment: Sit to stand machine (shannan stedy) Level of Assistance: Total assistance (max assist x2) Assessment/Delivery: Therapist assisted Feeding Feeding Location: Wheelchair Feeding Delivery: Assessed, Instructed, Therapist Assisted, Facilitated, Modified/Adapted, Educated Feeding Adaptive Equipment: (Lipped plate, dycem) Feeding Level of Assistance: Supervision/Set-up Feeding Comments: Set up assist from spouse and therapist for self feeding using her LUE. Education provided on use of a lipped plate, as spouse reports frequent use of bowls for all foods to enhance scooping with a spoon. Lipped plate provided, will continue to reassess in future sessions. Neuromuscular reeducation: Hands on facilitation to promote spinal extension and mobility, as patient is appreciated to rest danielle forward flexed and protracted position. Left upper extremity overhead and low reaching done to promote trunk extension and priming prior to completion of transfer from edge of bed to chair. Therapeutic Activity: [employer] Integrated Therapy System Facilitated visual scanning from a seated position, targeting core lengthening and strength with forward reaching to varying heights. Assessed for optimal contrast level to identify target during visual scanning, with patient noting preference for white dot on a black background. Graded for size of the target for ease of visual scanning, locating, and hitting the target. Moderate to max cuing for locating the target, with intermittent assist for reach using her LUE. Patient reporting enjoyment of the activity. Engaged in trials for sit<>stands and prolonged partial standing with use of the Shannan Stedy toprogress patient's standing tolerance and lower body strength in preparation for progressing her ability to participate in functional transfers and activities of daily living safely and with decreased assistance. x3 stands completed, graded for reduced UE stabilization via reaching to table top to miguel pulate small objects. x2 assist (therapist and spouse) for all sit<>stands on this date. Orthotics Facilitation of trial wearing fabricated orthosis for 15 minutes to assess fit and for further needed adjustments. Will continue to adjust and modify orthosis in future sessions prior to issuing to thepatient per noted redness along the ulnar border of her palm and wrist, as well as potentially for enhanced support at the MCPj's. Patient/Family Education: adaptive tools for self feeding. Education Provided to: Aurora Learner's Response: Requires cueing and Requires continued education At the end of today's therapy session patient was left seated in a wheelchair with a pressure relieving cushion with an appropriate call light within reach. Patient's needs and questions addressed during today's session. Contact monitoring: PPE used during therapy: Therapist was wearing the following PPE throughout entire session: surgicalmask and eye protection Patient was wearing a mask during therapy session: no Family member/caregiver present was wearing a mask: yes Additional Staff Present During Session: None Assessment Aurora continues to participate well in OT and make good progress toward reaching her therapy goals. Assessed current fit of modified resting hand orthosis fabricated in previous session, with further needed modifications identified prior to issuing to the patient. Limited for participation in activities of daily living and functional transfers secondary to weakness and impaired balance, requiring x 2max assist and Shannan Stedy for transfers. All of the above and previously listed impairments (please see EMR/ initial OT evaluation for further detail) significantly impact her ability to safely and independently complete activities of daily living and mobility. Patient requires skilled occupational therapy services to address listed deficits and to maximize safety and independence with overall occupational performance and participation prior to discharge. Barriers to Discharge Home: Current functional status, Safety concerns, Fall risk Barriers to Discharge Comments: Requires assist of two for mobilizing Comorbid Conditions: Other (Comment), Cerebrovascular accident (see [facility] for full medical history) Personal Factors: Balance impairment, Communication deficit, Hand dominance, History of falls, Needsassistive device, Safety awareness Discharge Therapy Needs - OT: Ongoing skilled occupational therapy Level of Care Needed - OT: Assistance with toileting, Assistance with toilet/shower transfers, Assistance with medication set up/administration, Assistance with showering/bathing, Assistance with dressing, Physical assistance needed, Assistance with meal preparation, Assistance with student financial services counselor, Assistance with transportation, Assistance with housekeeping, Assistance with shopping, Cognitiveassistance needed, Assistance with eating/feeding Functional Goals and Timeframes: OT Goal #1: STG: Pt will complete stand pivot commode transfer with moderate assistance x2 OT Goal #2: STG:Patient will complete LB dressing with use of ae with moderate assist of 1 OT Goal #3: STG:Pt will be able to maintain standing with adaptive setup and moderate assistance to allow caregiver to safely assist with clothing management for self cares and to participate in grooming tasks. OT Goal #4: LTG :Pt's spouse will verbalize understanding on safe mechanics and DME for patient to continue to participate with ADL cares Progress: Progressing toward goals Plan Patient agrees with the plan of care and goals. Treatment Plan: OT Frequency: 6 times per week OT Amount: 2 visits per day OT Inpatient Duration : Until goals are met or hospital discharge Plan: Continue with current plan Treatment interventions may include: Treatment Interventions: Therapeutic exercise, Therapeutic functional activity, Neuromuscular re-education, Self-care/home management Therapeutic Interventions Home Management Training (min): 40 min Neuromuscular Re-Education (min): 10 min Orthotic Mgmt Initial (min): 10 min Therapeutic Activity (min): 30 min Time Tracking Total Timed Units (min): 90 min Total Treatment Time (min): 90 min OT Individual: 90 Minutes Marianela Veliz M.S., O.T. Niyah Early M.D. - 09/09/2021 7:24 AM CDT SUBJECTIVE Mrs. Aurora Langley is a 76-year-old, right-handed, [place]-speaking woman with past medical history of TBI with residual posttraumatic epilepsy, right spastic hemiparesis and expressive aphasia s/p SKY LINE YARDER shunt (1995) and lumbar spinal stenosis now status post L2-L5 lumbar laminectomy on 09/02/[address] Castellon. She is admitted to acute inpatient rehabilitation for lower extremity weakness and impairments in gait and ADL performance. This morning, Mrs. Langley reports having slept well last night and feels rested this morning. She denies any current pain or discomfort. We reviewed her current bladder function and she and her confirmed that she is at her baseline. She assured me that she is able to sense her bladder filling and knows when she needs to void, but at times it is easier to utilize the diaper given the challenges with transferring to the toilet. I encouraged her to consider using the toilet chair more frequently while she is here as this is more comfortable for her anyway. She and her were in agreement with this plan. All questions and concerns were addressed to the best of my ability. Multidisciplinary discharge rounds: I participated in multidisciplinary bedside rounds today. Attendees included: patient, family member(s), physician, lawn caretaker, physical therapist, occupational therapist and Social work. This is the patient's first bedside rounds. We provided medical updates and introduction to team members and roles. Then we reviewed patient-centered goals including improved mobility and safety with transfers, creating a hand splint, OBJECTIVE Temperature: [36.8 ??C-36.9 ??C] 36.9 ??C Resp Rate: [16] 16 Blood Pressure: (133-152)/(81-91) 152/91 SpO2: [94 %-96 %] 96 % Last Stool Occurrence: 1 (09/07/21 1900 : Debby Aleman R.N.) Intake/Output Summary (Last 24 hours) at 09/09/2021 0724 Last data filed at 09/08/2021 1900 Gross per 24 hour Intake 720 ml Output -- Net 720 ml Bowel Incontinence: No (09/08/21 1900 : Miguelina Santana R.N.) Unmeasured Urine Occurrence: 1 (09/09/21 0516 : Petar Chase, R.N.) Urinary Incontinence: Yes (09/09/21 05 : Petar Chase, R.N.) Physical Exam: General: Pleasant woman, seated up to chair at bedside eating breakfast and drinking coffee, no acute distress HEENT: Normocephalic, atraumatic. Hearing grossly intact. Cardiovascular: Regular rate and rhythm Respiratory: No dyspnea or use of accessory muscles. Respiratory rate as noted above in vital signs. Abdomen: Soft, nondistended. Skin: No rashes or lesions appreciated on exposed areas of skin. Neuro Exam: Mental Status: Grossly oriented. Alert. Appropriate mood and affect. Language: Expressive aphasia, assists intermittently in helping her come up with the words to say, translates into [place] for her when needed Extremities: [place] Islander knee cage brace on right knee and ankle brace on right ankle. Right upper extremity held in flexion position which is baseline. Diagnostics I reviewed the imaging studies and agree with the interpretation as recorded. I reviewed the pertinent laboratory data and diagnostic data. ASSESSMENT / PLAN Mrs. Aurora Langley is a 76-year-old, right-handed, [place]-speaking woman with past medical history of TBI with residual posttraumatic epilepsy, right spastic hemiparesis and expressive aphasia s/p SKY LINE YARDER shunt (1995) and lumbar spinal stenosis now status post L2-L5 lumbar laminectomy on 09/02/[address] Castellon. She is admitted to acute inpatient rehabilitation for lower extremity weakness and impairments in gait and ADL performance. Plan for Today (09/09/21): - Continue with multidisciplinary inpatient rehabilitation - Photo update of posterior incision - Repeat CBC tomorrow to monitor hemoglobin # Lumbar spinal stenosis with neurogenic claudication s/p L2-L5 laminectomy (09/02/21) # Progressive lower limb weakness # Gait unsteadiness # History of TBI resulting in spastic right hemiparesis, posttraumatic epilepsy and expressive aphasia - Comprehensive PT/OT - Restrictions: 15-20 pound lifting restriction and no heavy lifting, twisting or bending for 6 weeks post-op which will be October 14 - Pain control regimen includes: Tylenol 1000 mg every 6 hours as needed - Continue home carbamazepine 500 mg BID, levetiracetam 500 mg qAM, 250 mg with lunch, 500 mg qPM and folic acid 1,000 mcg daily - Neurosurgery will coordinate outpatient follow-up - Neurology consult recommended continuing at home doses of carbamazepine and levetiracetam - has diazepam PRN to be given only if having seizure-like activity for >5 minutes (one eye closed, face-glossing over, right eyelid twitching, and NOT responding or following commands), can be given 2x for a total of 10 mg if not responsive to first dose ?? # Hyperlipidemia - Continue home atorvastatin 10 mg every 48 hours - Continue home aspirin 81 mg daily ?? FULL CODE as discussed with patient. Surgical Incision Aries: can be removed 14 days post-op (09/16) Diet: Regular DVT prophylaxis: Lovenox Bowel: bowel medication regimen as needed Bladder: currently voiding at her baseline; will perform I&O catheterization if indicated Disposition: anticipate discharge September 22; goal to home with family support ?? Please contact the [facility] [place] [phone] with any questions or concerns. Niyah Early M.D. PM&R, PGY-2 Associated attestation - Laura Cardenas M.D. - 09/09/2021 10:51 AM CDT I saw and evaluated the patient, participating in the trinh portions of the service. I reviewed the resident/fellow???s note. I agree with the resident/fellow???s findings and plan. Ms. Langley is capable of participating in rehabilitation. She continues to progress towards functional independence in the area(s) of mobility and self- care and will benefit from ongoing intensive inpatient rehabilitation. She continues to do well. According to her she had an excellent night. She continues to havebaseline urinary incontinence. Surgical incision will be examined later today with pictures taken. We participated in her discharge planning rounds. We reviewed patient/family identified goals. This includes decreasing assistance required for transfers. At this point, she requires assistance of 2 for use of the Shannan Steady. We are hopeful to transition to assistance of 1 for all transfers with use of the device. Her is investigating purchase of this device. We plan to recheck a CBC tomorrow to follow up her hemoglobin. Otherwise we will monitor. I personally spent over half of a total 20 minutes in counseling and discussion with the patient andcoordination of care as described above. Rosa Lobo O.T. - 09/08/2021 2:52 PM CDT Occupational Therapy Rehabilitation [facility] Inpatient Progress Note SUBJECTIVE Patient's Name: Aurora Langley Reason for Referral: Occupational therapy treat Medical Diagnosis: 1. Lack Of Coordination 2. Decline Functional Status History of Present Illness: Patient is s/p L2-L5 laminectomies for lumbar stenosis with gait instability by Dr. 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 Onset Date: 09/02/21 Patient/Caregiver Goals: Be able to complete cares with support of spouse to return home Precautions Other Precautions: fall, history of TBI, expressive aphasia, no functional use of RUE, R inattention, uses R AFO and knee brace for ambulation Fall Risk (65 and older) Fall in the last 12 months: Yes Did you have an injury with the fall?: No Are you fearful of falling?: Yes OBJECTIVE Cognition Arousal/Alertness: Delayed responses to stimuli Attention: Impairments noted Sustained: Mild Right Neglect: Moderate Initiation: Slow/delayed initiation Following Commands: Inconsistently following commands Following Commands Comments: Patient is able to follow single step commands inconsistently with increased time and repetition. Does best with more complex commands when is able to interpret into [place]. Safety/Judgment: Impairments noted Cognition Comments: known deficits from previous TBI. Able to understand most [place], able to respond to many yes/no questions appropriately with increased time and repetition. Bed Mobility - Rolling # of Assistants: 1 Level of Assistance: Maximal assistance Device: Bed Rail Cuing: Verbal, Tactile Bed Mobility - Supine to Sit # of Assistants: 1 Level of Assistance: Maximal assistance Device: Bed rail, Head of bed elevated Cuing: Verbal, Tactile Bed, Chair, Wheelchair Transfers Transfer Surface: Bed, Wheelchair Transfer Approach: To and from Transfer Equipment: Sit to stand machine Level of Assistance: Total assistance Assessment/Delivery: Therapist assisted Orthotics Location: Modified right resting hand orthosis Intervention: Fabrication Patient was seen for fabrication modified resting hand orthosis. Patient has longstanding contractures. She has good skin integrity. Patient's nails are nicely trimmed. Orthosis to supports her wrist and digits 2 through 5. Patient's right thumb was not included in the orthosis due to severe contracture and most likely skin breakdown if it was included. Will monitor closely. Patient/Family Education: Use of Shannan steady Education Provided to: Sal Learner's Response: Requires continued education At the end of today's therapy session patient was left seated in a wheelchair with an appropriate call light within reach. Patient's needs and questions addressed during today's session. Contact monitoring: PPE used during therapy: Therapist was wearing the following PPE throughout entire session: surgicalmask and eye protection Patient was wearing a mask during therapy session: yes Family member/caregiver present was wearing a mask: yes Assessment Patient continues to progress toward goals as outlined. Patient's spouse is very attentive and involved in therapy and ongoing Education. Patient demonstrates improvement with using the Shannan steady, assist x2. Occupational therapist has been and facilitating trunk and neck extension to improve functional transfers. Patient also seems to be getting more comfortable with new caregivers. Barriers to Discharge Home: Current functional status, Safety concerns, Fall risk Barriers to Discharge Comments: Requires assist of two for mobilizing Comorbid Conditions: Other (Comment), Cerebrovascular accident (see [facility] for full medical history) Personal Factors: Balance impairment, Communication deficit, Hand dominance, History of falls, Needsassistive device, Safety awareness Discharge Therapy Needs - OT: Ongoing skilled occupational therapy Level of Care Needed - OT: Assistance with toileting, Assistance with toilet/shower transfers, Assistance with medication set up/administration, Assistance with showering/bathing, Assistance with dressing, Physical assistance needed, Assistance with meal preparation, Assistance with student financial services counselor, Assistance with transportation, Assistance with housekeeping, Assistance with shopping, Cognitiveassistance needed, Assistance with eating/feeding Functional Goals and Timeframes: OT Goal #1: STG: Pt will complete stand pivot commode transfer with moderate assistance x2 OT Goal #2: STG:Patient will complete LB dressing with use of ae with moderate assist of 1 OT Goal #3: STG:Pt will be able to maintain standing with adaptive setup and moderate assistance to allow caregiver to safely assist with clothing management for self cares and to participate in grooming tasks. OT Goal #4: LTG :Pt's spouse will verbalize understanding on safe mechanics and DME for patient to continue to participate with ADL cares Progress: Progressing toward goals Plan Patient agrees with the plan of care and goals. Treatment Plan: OT Frequency: 6 times per week OT Amount: 2 visits per day OT Inpatient Duration : Until goals are met or hospital discharge Plan: Continue with current plan Treatment interventions may include: Treatment Interventions: Therapeutic exercise, Therapeutic functional activity, Neuromuscular re-education, Self-care/home management, complete right hand orthotic Time Spent with Patient Therapeutic Activity (min): 30 min Orthotic Mgmt Initial (min): 30 min Orthotic Mgmt Subsequent (min): 30 min Time Calculation Total Timed Units (min): 90 min Total Treatment Time (min): 90 min Doris Lobo O.T. Laura Cardenas M.D. - 09/08/2021 11:19 AM CDT Physical Medicine and Rehabilitation Interdisciplinary Team Conference [facility] 09/08/2021 11:19 AM CDT Patient Name: Aurora Langley Admit Date/Time: 09/04/2021 3:09 PM Date of : 1945 Sex: Female Room/Bed: 215/215-P Etiologic Diagnosis: Laminectomy Lumbar Status Post Impairment Group: Orthopaedic Disorders Payor: Payor: MEDICARE / Plan: MEDICARE A AND B / Product Type: Medicare / Anticipated Discharge Date: 09/22/21 Rehab Team Conference Participation Physician Talent Buyer: Dr. Laura Cardenas Senior Resident Present: Dr. Salvatore Lou Nursing Talent Buyer: Prabhu Corrales RN CM/SW Talent Buyer: MICAH Benjamin CM/SW Second Talent Buyer: AAKASH Bush PT Talent Buyer: Amparo Farmer PT OT Talent Buyer: Rosa Lobo OT Other (Discipline and Name): Dr. Belkys Paul, PMR Brain Fellow OT Goal #1: STG: Pt will complete stand pivot commode transfer with moderate assistance x2 OT Goal #2: STG:Patient will complete LB dressing with use of ae with moderate assist of 1 OT Goal #3: STG:Pt will be able to maintain standing with adaptive setup and moderate assistance to allow caregiver to safely assist with clothing management for self cares and to participate in grooming tasks. OT Goal #4: LTG :Pt's spouse will verbalize understanding on safe mechanics and DME for patient to continue to participate with ADL cares PT Goal #1: Patient and spouse will be able to perform bed mobility using no hospital bed features with Min A x1 in order to increase independence in home. PT Goal #2: Patient will be able to complete sit to/from stand transfer using Shannan Stedy or most appropriate gait device with Mod A x1 in order to improve household mobility. PT Goal #3: At discharge, patient will be able to perform stand pivot transfer using least restrictive device with Mod A x1 in order to improve household mobility. PT Goal #4: Patient will demonstrate ability to maintain unsupported sitting at least 30 seconds to improve mobility and safety. Progress Toward Goals Additional Team Conference Comments (RN): Patient continent of bowel. Paitent intermittently incontinent of bladder. Pain managed with PRN Tylenol. Nursing transferring patient x2 w shannan stedy. Patientis total assist with feeding. Additional Team Conference Comments (PT): Patient is a very pleasant and hard working 76-year-old [place] woman whose current deficits include chronic right spastic hemiparesis (UE > LE) and expressive aphasia from a prior TBI, in addition to significant bilateral LE weakness, right-sided inattention, and right LE sensory deficits. Currently, she requires Max A x1-2 for bed mobility, Max A x2 with Shannan Stedy for sit to/from stand and bed to chair transfer. Prior level of function includes walking household distances with assist from . is very experienced with caring for her and is very open to caregiver education. Education Provided (PT): Role of physical therapy in the inpatient rehabilitation setting, collaborative goal setting with patient and , education regarding strategies for safety utilizing most appropriate equipment available. Additional Team Conference Comments (OT): Working to decrease need for asssitance with functional mobility tasks, possible splinting for right upper extremity, posture principles. Discharge Equipment Equipment Recommended - PT: Other (Comment), Wheelchair (pending ongoing assessment, Shannan Biswas may be beneficial for transfers/etc.) Equipment Vendor - PT: pending ongoing assessment, Shannan Biswas may be beneficial for transfers/etc. Patient / Family Goals The goals from interdisciplinary conference were discussed with patient, family. Discharge Planning Discharge Planning (Team Conference) Barriers To Discharge: Ability to acquire knowledge, Equipment, Comorbidities Strengths: Support of immediate family, Attitude of family, Attitude of self, Previous rehab experience Anticipated Discharge Destination: Home or Self Care Assistance Recommended after Discharge: 24 hour physical assistance Discharged Living With: Family and or relatives Support Systems: Spouse Recommended Discharge Services: Physical Therapy, Occupational Therapy, [facility] Rehabilitation [facility],PM&R Physician Follow-up Does the patient need discharge transport arranged?: (TBD) Physician Summary The team discussed the discharge date, destination and assistance required after discharge, and reviewed the written plan of care. The discharge date was changed to 09/22/21 due to: requires longer to meet medical/therapeutic goals. Goal assist of 1 to transfer jennifer sterling. The patient's progress towards rehabilitation goals and associated barriers to discharge were discussed related to activities of daily living, medical issues, mobility, safety, equipment, discharge planning, transfers, bladder management, bowel management, communication. No changes to goals needed.. Amparo Farmer, P.T., D.P.T. - 09/08/2021 10:30 AM CDT [facility] Therapy [facility] SUBJECTIVE Patient's Name: Aurora Langley Reason for Referral: PT Evaluate and Treat: Inpatient rehabilitation Medical Diagnosis: 1. Lack Of Coordination 2. Decline Functional Status History of Present Illness: Patient is s/p L2-L5 laminectomies for lumbar stenosis with gait instability by Dr. 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 Onset Date: 09/02/21 Patient/Caregiver Goals: Be able to complete cares with support of spouse to return home Patient Comments: Aurora reports sleeping well last night. No pain at rest, but noting increased right knee pain with weight bearing. Patient agreeable to physical therapy sessions. Precautions Other Precautions: fall, history of TBI, expressive aphasia, no functional use of RUE, R inattention, uses R AFO and knee brace for ambulation OBJECTIVE R knee cage and ankle brace donned prior to arrival and donned throughout session Pain: Reporting increased R knee pain after standing, patient's spouse notes she experiences increased pain with weight bearing. Vitals: Not indicated at this time Therapeutic Activity: Bed Mobility - Sit to Supine # of Assistants: 2 Level of Assistance: Maximal assistance Device: None Cuing: Verbal, Tactile Sit to Stand Transfers # of Assistants: 2 Transfer Surface: Wheelchair, Toilet/Commode Transfer Equipment: Gait belt, Sit to stand machine, Single rail (Shannan Stedy) Level of Assistance: Maximal assistance, Moderate assistance Assessment/Delivery: Assessed, Instructed, Therapist assisted, Facilitated, Educated Comments: Step by step cues for set-up and sequencing. Requires assistance to reach left hand for cross bar and for positioning feet. Moderate to maximal assistance of two to power up to stand, facilitate hip extension and upright posture. Trialed standing at kemi rail with assisting x2 reps. PT anteriorly blocking knees and lifting at posterior hips, spouse posteriorly providing further assist at trunk and hips. Requiring maximal to total assistance to maintain upright standing at kemi railfull knee block and facilitation of terminal hip extension. Patient's spouse encouraging upright posture. Stand to Sit Transfers # of Assistants: 2 Transfer Surface: Wheelchair, Toilet/Commode Transfer Equipment: Gait belt, Sit to stand machine, Single rail (Shannan Stedy) Level of Assistance: Maximal assistance Assessment/Delivery: Assessed, Instructed, Educated, Therapist assisted, Facilitated Comments: Facilitation for slow controlled eccentric sitting. Bed, Chair, Wheelchair Transfers # of Assistants: 2 Transfer Surface: Bed, Wheelchair (Commode; Therapy mat) Transfer Approach: To and from, Low/squat pivot Transfer Equipment: Sit to stand machine (Shannan Stedy) Level of Assistance: Total assistance, Maximal assistance Assessment/Delivery: Therapist assisted Comments: Facilitated most transfers with use of Shannan Stedy. In PM, facilitated dependent low squat pivot transfer with PT assisting anteriorly and second assist providing supervision assist from behind. Discussed various techniques with patient's spouse on how to best assist Aurora with transfers. Discussed possibility of slide board transfers, but would need to work up to this. Neuromuscular Re-education: Balance Retraining Sitting: Anterior/posterior leans, Reaching through moderate excursions, Reaching through minimal excursions, Static Sitting Balance Comments: Addressing dynamic seated balance while seated at edge of therapy mat: cone stacking encouraging forward and lateral reaching outside base of support; tapping therapists hand from various distances and planes of motion; balloon volleyball with spouse (PT posteriorly facilitating upright posture and encouraging increased weight shifts). Able to sit statically at edge of therapy mat with supervision assist, demonstrates increased forward flexed posturing with fatigue. Static Standing Balance: Static standing Static Standing Balance Comments: Worked on static standing at [facility] rail with focus on upright posture with hip and knee extension. Patient requiring maximal assistance to block R knee and facilitate hip extension. Tolerated standing 20- 30 seconds before fatiguing, completed x2 repetitions. Therapeutic Exercise: ROM/Stretching Upper Extremity ROM/Stretching - Side Addressed: Right Shoulder Motion: Flexion, Abduction, Horizontal abduction, Internal rotation, External rotation, Scaption Elbow/Forearm Motion: Extension Wrist Motion: Flexion, Extension Hand/Digits Motion: Extension, Abduction UE ROM/Stretching Position: Supine UE ROM/Stretching Exercise Type: Passive range of motion, Low-load prolonged stretch UE ROM Comments: At end of PM session, PT assisted with right upper extremity passive range of motion into low-load prolonged stretching. Patient demonstrates increased tone and contractures throughouther right upper extremity (distal > proximal). Lower Extremity ROM/Stretching-Side Addressed: Bilateral LE ROM/Stretching Position: Seated LE ROM/Stretching Exercise Type: Low-load prolonged stretch LE ROM Comments: PT facilitated hamstring and heel cord stretches during rest breaks. Increased toneand tightness noted on the R. Patient/Family Education: Rationale for given interventions; techniques with functional mobility; discussed equipment needs (provided information on Shannan Biswas); discussed option of ordering custom wheelchair for patient. Education Provided to: Aurora and spouseKirk Learner's Response: Able to demonstrate, Requires cueing and Requires continued education At the end of today's therapy session patient was left in bed with spouse present with an appropriate call light within reach. Patient's needs and questions addressed during today's session. Contact monitoring: PPE used during therapy: Therapist was wearing the following PPE throughout entire session: surgicalmask and eye protection Patient was wearing a mask during therapy session: when out of room Family member/caregiver present was wearing a mask: when out of room Assessment Patient pleasant and participative in physical therapy. Aurora demonstrates increased activity tolerance in therapy today, and able to make progress with standing at kemi rail and facilitating low pivottransfers. Continues to require heavy 1-2 assist for all functional mobility at this time. Patient'sspouse present for part of therapy sessions today to discuss strategies for functional transfers foreducational and training purposes. Patient's spouse is highly encouraging and supportive of patient,and helps push her to progress during each therapy session. Aurora remains below her functional baseline and will continue to benefit from intensive rehabilitation services in a multidisciplinary setting to optimize her independence and achieve her team goals. Barriers to Discharge Home: Current functional status, Safety concerns, Fall risk Barriers to Discharge Comments: Requires assist of two for mobilizing Comorbid Conditions: Other (Comment), Cerebrovascular accident (see [facility] for full medical history) Personal Factors: Balance impairment, Communication deficit, Hand dominance, History of falls, Needsassistive device, Safety awareness Discharge Therapy Needs - PT: Ongoing skilled physical therapy Level of Care Needed - PT: Assistance with transfers (Comment), Assistance with walking and moving around the home, Assistance with bed mobility, Cognitive assistance needed Equipment Recommended - PT: Other (Comment), Wheelchair (pending ongoing assessment, Shannan Stedy may be beneficial for transfers/etc.) Functional Goals and Timeframes: PT Goal #1: Patient and spouse will be able to perform bed mobility using no hospital bed features with Min A x1 in order to increase independence in home. PT Goal #1 Date: 09/12/21 PT Goal #1 Status: Slowly progressing PT Goal #2: Patient will be able to complete sit to/from stand transfer using Shannan Stedy or most appropriate gait device with Mod A x1 in order to improve household mobility. PT Goal #2 Date: 09/12/21 PT Goal #2 Status: Progressing PT Goal #3: At discharge, patient will be able to perform stand pivot transfer using least restrictive device with Mod A x1 in order to improve household mobility. PT Goal #3 Date: 09/19/21 PT Goal #3 Status: Slowly progressing PT Goal #4: Patient will demonstrate ability to maintain unsupported sitting at least 10 minutes to improve mobility and safety. PT Goal #4 Date: 09/19/21 PT Goal #4 Status: Advanced Progress: Progressing toward goals Plan Patient agrees with the plan of care and goals. Treatment Plan: PT Frequency: 6 times per week PT Amount: 2 visits per day PT Inpatient Duration : Until goals are met or hospital discharge Plan: Continue with current plan PT Plan Comments: Continue progression towards improved participation and safety with functional mobility. Progress towards mobility with Ax1 with caregiver training. Treatment interventions may include: Treatment/Interventions: Therapeutic exercise, Therapeutic functional activity, Neuromuscular re-education, Gait training, Self-care/home management, Orthosis [id number] Time Spent with Patient Neuromuscular Re-Education (min): 20 min Therapeutic Activity (min): 60 min Therapeutic Exercise (min): 10 min Total Timed Units (min): 90 min Total Treatment Time (min): 90 min Amparo Farmer P.T., D.P.T. Stephanie Paul M.D. - 09/08/2021 9:36 AM CDT Brain Rehabilitation Medicine Fellow ITC Progress Note Ms. Langley was seen this morning at bedside with her . He was assisting her in having breakfast. She is awake and in good spirits today. OBJECTIVE PHYSICAL EXAMINATION General Appearance: Well developed, no acute distress. Skin: No rashes, lesions, or ecchymoses noted. Lungs: Normal respiratory effort. Extremities: Warm and well perfused, no edema noted. Neuro Exam: awake, alert, reflexive short speech, moving her left side, right arm with flexion contracture Interdisciplinary team conference update: I participated in the patient's interdisciplinary team conference today along with my colleagues from physical therapy, occupational therapy, speech and language pathology, nursing, nursing care coordination, social work, and rehabilitation physician staff. - In PT: Does better when her is present. Standing without the Shannan Stedy. Needed his support and cues for this. Requiring 1-2 heavy assistance to stand with the Shannan Stedy and maximum assistance of 2 to stand and the kemi-rail. - In OT: Very heavy assist if standing with Shannan Stedy. She is not moving much to assist with standing and moving of her head into neck extension. 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 Langley is doing well on her current medications. She has been able to wean off of her pain medications without issue and has not had any further episodes consistent with seizure. DME Need: Shannan Biswas Expected Supervision upon discharge: 03/01 physical assistance Expected Date of Discharge: 09/22 The patient requires, and is capable of participating in, an intensive and coordinated interdisciplinary acute inpatient rehabilitation program. The patient requires rehabilitation physician visits to coordinate rehabilitation care and monitor medical conditions. Risks for medical complication includewound infection, seizure, brain injury, infection, and falls. The patient's rehabilitation goals andmedical complexity cannot adequately be managed in a less intensive setting. PPE used during visit: Provider was wearing a mask throughout entire session. Patient was NOT wearing mask during entire session. Additional person present and PPE use: spouse, not wearing PPE. Belkys Paul M.D. Fellow, Brain Injury Medicine Physical Medicine & Rehabilitation Niyah Early M.D. - 09/08/2021 7:42 AM CDT SUBJECTIVE Mrs. Aurora Langley is a 76-year-old, right-handed, [place]-speaking woman with past medical history of TBI with residual posttraumatic epilepsy, right spastic hemiparesis and expressive aphasia s/p SKY LINE YARDER shunt (1995) and lumbar spinal stenosis now status post L2-L5 lumbar laminectomy on 09/02/[address] Castellon. She is admitted to acute inpatient rehabilitation for lower extremity weakness and impairments in gait and ADL performance. Mrs. Langley had some right knee discomfort following therapy yesterday, but this resolved with useof Tylenol. She had a bowel movement yesterday. Her reports that she was less restless last night compared to the previous nights which was a positive change. She denies any pain or discomfort this morning. They are both pleased with the excellent progress that they have been seeing in her recovery. All questions and concerns were addressed to the best of my ability. OBJECTIVE Temperature: [36.4 ??C-36.7 ??C] 36.4 ??C Resp Rate: [15-16] 16 Blood Pressure: (110-129)/(58-59) 129/58 SpO2: [94 %-98 %] 94 % Last Stool Occurrence: 1 (09/07/21 1900 : Debby Aleman R.N.) Intake/Output Summary (Last 24 hours) at 09/08/2021 0742 Last data filed at 09/07/2021 1330 Gross per 24 hour Intake 650 ml Output -- Net 650 ml Bowel Incontinence: No (09/07/21 0330 : Elaine Hill, R.N.) Unmeasured Urine Occurrence: 1 (09/08/21417 : Petar Chase, R.N.) Urinary Incontinence: Yes (09/08/21417 : Petar Chase, R.N.) Physical Exam: General: Pleasant woman, seated up to chair at bedside receiving assistance from with set upfor breakfast, no acute distress HEENT: Normocephalic, atraumatic. Hearing grossly intact. Cardiovascular: Regular rate and rhythm Respiratory: No dyspnea or use of accessory muscles. Respiratory rate as noted above in vital signs. Abdomen: Soft, nondistended. Skin: No rashes or lesions appreciated on exposed areas of skin. Neuro Exam: Mental Status: Grossly oriented. Alert. Appropriate mood and affect. Language: Expressive aphasia, assists a lot in helping her come up with the words to say, translates into [place] for her intermittently Extremities: [place] knee cage brace on right knee and ankle brace on right ankle. Right upper extremity held in flexion position which is baseline. Diagnostics I reviewed the imaging studies and agree with the interpretation as recorded. I reviewed the pertinent laboratory data and diagnostic data. ASSESSMENT / PLAN Mrs. Aurora Langley is a 76-year-old, right-handed, [place]-speaking woman with past medical history of TBI with residual posttraumatic epilepsy, right spastic hemiparesis and expressive aphasia s/p SKY LINE YARDER shunt (1995) and lumbar spinal stenosis now status post L2-L5 lumbar laminectomy on 09/02/[address] Castellon. She is admitted to acute inpatient rehabilitation for lower extremity weakness and impairments in gait and ADL performance. Plan for Today (09/08/21): - Continue with multidisciplinary inpatient rehabilitation - Repeat CBC September 10 to monitor hemoglobin # Lumbar spinal stenosis with neurogenic claudication s/p L2-L5 laminectomy (09/02/21) # Progressive lower limb weakness # Gait unsteadiness # History of TBI resulting in spastic right hemiparesis, posttraumatic epilepsy and expressive aphasia - Comprehensive PT/OT - Restrictions: 15-20 pound lifting restriction and no heavy lifting, twisting or bending for 6 weeks post-op which will be October 14 - Pain control regimen includes: Tylenol 1000 mg every 6 hours as needed - Continue home carbamazepine 500 mg BID, levetiracetam 500 mg qAM, 250 mg with lunch, 500 mg qPM and folic acid 1,000 mcg daily - Neurosurgery will coordinate outpatient follow-up - Neurology consult recommended continuing at home doses of carbamazepine and levetiracetam - has diazepam PRN to be given only if having seizure-like activity for >5 minutes (one eye closed, face-glossing over, right eyelid twitching, and NOT responding or following commands), can be given 2x for a total of 10 mg if not responsive to first dose ?? # Hyperlipidemia - Continue home atorvastatin 10 mg every 48 hours - Continue home aspirin 81 mg daily ?? FULL CODE as discussed with patient. Surgical Incision Bantam: can be removed 14 days post-op (09/16) Diet: Regular DVT prophylaxis: Lovenox Bowel: bowel medication regimen as needed Bladder: currently voiding; will perform I&O catheterization as needed Disposition: ELOS 7 days; goal to home ?? [place] contact [place] PM[facility] [place] [phone] with any questions or concerns. Niyah Early M.D. PM&R, PGY-2 Associated attestation - Laura Cardenas M.D. - 09/08/2021 1:08 PM CDT I saw and evaluated the patient, participating in the trinh portions of the service. I reviewed the resident/fellow???s note. I agree with the resident/fellow???s findings and plan. Ms. Langley is capable of participating in rehabilitation. She continues to progress towards functional independence in the area(s) of mobility, self-care, and cognition and will benefit from ongoing intensive inpatient rehabilitation. She was seen during occupational therapy today. She has no specific complaints or concerns in indicates her sleep was improved. Her corroborates this. She continues to have fairly significant spasticity in her right hand, particularly the the MCPs. This is able to be ranged to nearly full motion. Occupational therapy is looking at splinting options monitoring her skin closely. She had no further seizure-like activity. I participated in her ITC conference. Team members are hopeful that we can reach a goal of transferring with assistance of 1 with utilization of the Shannan Steady. Thus, we will anticipate hospital discharge at a later date than initially thought in order to meet this goal. Please see separate documentation regarding this. I personally spent over half of a total 25 minutes in counseling and discussion with the patient andcoordination of care as described above. Rosa Lobo O.T. - 09/07/2021 2:06 PM CDT Occupational Therapy Rehabilitation [facility] Inpatient Progress Note SUBJECTIVE Patient's Name: Aurora Langley Reason for Referral: Occupational therapy treatment Medical Diagnosis: 1. Lack Of Coordination History of Present Illness: Patient is s/p L2-L5 laminectomies for lumbar stenosis with gait instability by Dr. 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 Onset Date: 09/02/21 Patient/Caregiver Goals: Be able to complete cares with support of spouse to return home Precautions Other Precautions: fall, history of TBI, expressive aphasia, no functional use of RUE, R inattention, uses R AFO and knee brace for ambulation Fall Risk (65 and older) Fall in the last 12 months: Yes Did you have an injury with the fall?: No Are you fearful of falling?: Yes Fall Risk Comments: patient slipped out of the bed OBJECTIVE Bed, Chair, Wheelchair Transfers # of Assistants: 2 Transfer Surface: Bed, Wheelchair Transfer Approach: To and from Transfer Equipment: Sit to stand machine Level of Assistance: Total assistance Assessment/Delivery: Therapist assisted Occupational therapist facilitated added functional transfers with spouse and Shannan CallVU device. Encouraged patient to actively versus passively participate in transfer. With cuing patient is able to stand more erect and weight bear on her left lower extremity. Patient has tendency to squat for all transfers. Right upper extremity gentle scapular mobilization provided. Patient has had nonfunctional right upper extremity with contractures for many years. Occupational therapy wants to maintain scapular range of motion to promote trunk extension and neck range of motion. Left upper extremity overhead reachingdone to promote trunk extension. Patient has obvious visual deficits. Spouse reports patient does not have eyeglasses. They have explored different options but due to aphasia unable to accurately test. At the end of today's therapy session patient was left seated in bedside chair with an appropriate call light within reach. Patient's needs and questions addressed during today's session. Contact monitoring: PPE used during therapy: Therapist was wearing the following PPE throughout entire session: surgicalmask and eye protection Patient was wearing a mask during therapy session: yes Family member/caregiver present was wearing a mask: yes Assessment Both patient and spouse actively participate in occupational therapy sessions Therapist encouraged patient to actively participate in functional transfers versus letting caregivers assist more. Focus of today's sessions was on trunk and neck extension. Patient's ADLs and IADLs are limited by impaired functional mobility, right-sided weakness, aphasia, and limited right upper extremity function. Spouse is very receptive to all help and suggestions. Barriers to Discharge Home: Current functional status, Safety concerns, Fall risk Barriers to Discharge Comments: Requires assist of two for mobilizing Comorbid Conditions: Other (Comment), Cerebrovascular accident (see [facility] for full medical history) Personal Factors: Balance impairment, Communication deficit, Hand dominance, History of falls, Needsassistive device, Safety awareness Discharge Therapy Needs - OT: Ongoing skilled occupational therapy Level of Care Needed - OT: Assistance with toileting, Assistance with toilet/shower transfers, Assistance with medication set up/administration, Assistance with showering/bathing, Assistance with dressing, Physical assistance needed, Assistance with meal preparation, Assistance with student financial services counselor, Assistance with transportation, Assistance with housekeeping, Assistance with shopping, Cognitiveassistance needed, Assistance with eating/feeding Functional Goals and Timeframes: OT Goal #1: STG: Pt will complete stand pivot commode transfer with moderate assistance x2 OT Goal #2: STG:Patient will complete LB dressing with use of ae with moderate assist of 1 OT Goal #3: STG:Pt will be able to maintain standing with adaptive setup and moderate assistance to allow caregiver to safely assist with clothing management for self cares and to participate in grooming tasks. OT Goal #4: LTG :Pt's spouse will verbalize understanding on safe mechanics and DME for patient to continue to participate with ADL cares Progress: Progressing toward goals Plan Patient agrees with the plan of care and goals. Treatment Plan: OT Frequency: 6 times per week OT Amount: 2 visits per day OT Inpatient Duration : Until goals are met or hospital discharge Plan: Continue with current plan Treatment interventions may include: Treatment Interventions: Therapeutic exercise, Therapeutic functional activity, Neuromuscular re-education, Self-care/home management Time Spent with Patient Therapeutic Activity (min): 60 min Home Management Training (min): 30 min Time Calculation Total Timed Units (min): 90 min Total Treatment Time (min): 90 min Doris Lobo O.T. Amparo Farmer P.T., D.P.T. - 09/07/2021 10:30 AM CDT Physical Therapy Rehabilitation [facility] Inpatient Treatment SUBJECTIVE Patient's Name: Aurora Langley Reason for Referral: PT Evaluate and Treat: Inpatient rehabilitation Medical Diagnosis: 1. Lack Of Coordination 2. Decline Functional Status History of Present Illness: Patient is s/p L2-L5 laminectomies for lumbar stenosis with gait instability by Dr. 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 Onset Date: 09/02/21 Patient/Caregiver Goals: Be able to complete cares with support of spouse to return home Patient Comments: In AM, patient reports she is feeling alright. In afternoon, patient endorsing increased fatigued and tiredness, decreased participation as a result. Patient agreeable to physical therapy sessions. Precautions Other Precautions: fall, history of TBI, expressive aphasia, no functional use of RUE, R inattention, uses R AFO and knee brace for ambulation OBJECTIVE R knee cage and ankle brace donned prior to arrival and donned throughout session Pain: Endorsing R knee pain after repeated stands in [facility], discussed adding a pillow in front of knees when standing with the Shannan Stedy. Vitals: Not indicated at this time Therapeutic Activity: Facilitated several transfers throughout AM and PM sessions. Bed Mobility - Rolling # of Assistants: 1 Level of Assistance: Maximal assistance Device: Bed Rail Cuing: Verbal, Tactile Comments: Hand over hand facilitation to reach for bed rail and assist with rolling. PT additionallyfacilitating movement at LEs and trunk to ensure spinal precautions maintained. Bed Mobility - Supine to Sit # of Assistants: 1 Level of Assistance: Maximal assistance, Moderate assistance Device: Bed rail, Head of bed elevated Cuing: Verbal, Tactile Comments: Facilitated log roll technique, step by step cues for sequencing. Required assistance to manage LEs off edge of bed and then push up to sitting. Bed Mobility - Sit to Supine # of Assistants: 2 Level of Assistance: Maximal assistance Device: Head of bed elevated Cuing: Verbal, Tactile Comments: Patient's spouse assisting at patient's trunk. Facilitated reverse log roll technique intobed to maintain spinal precautions. PT assisting with LE management, cueing throughout for sequencing. Sit to Stand Transfers # of Assistants: 2 (1-2) Transfer Surface: Wheelchair, Therapy mat Transfer Equipment: Gait belt, Sit to stand machine ([facility]) Level of Assistance: Maximal assistance, Moderate assistance Assessment/Delivery: Assessed, Instructed, Therapist assisted, Facilitated, Educated Comments: Step by step cues for set-up and sequencing. PT assisting patient with reaching left UE tograb bar, and for positioning feet on foot plates. Requires up to maximal assistance x2 at hips and trunk to stand from low wheelchair seat, able to stand with mod-maxA x1 from raised hi-lo mat within [facility]. Stand to Sit Transfers # of Assistants: 2 (1-2) Transfer Surface: Bed, Wheelchair, Therapy mat Transfer Equipment: Gait belt, Sit to stand machine (Shannan Stedy) Level of Assistance: Maximal assistance Comments: Facilitation for slow controlled eccentric sitting. Bed, Chair, Wheelchair Transfers # of Assistants: 2 Transfer Surface: Bed, Wheelchair (Therapy mat) Transfer Approach: To and from Transfer Equipment: Sit to stand machine (Shannan Stedy) Level of Assistance: Total assistance Assessment/Delivery: Therapist assisted Comments: Patient demonstrates adequate trunk control while seated in Shannan Stedy, tendency to lean laterally to the R Neuromuscular Re-education: Balance Retraining Sitting: Reaching through minimal excursions, Reaching through moderate excursions, Static Sitting Balance Comments: Patient requiring minimal assistance for seated balance at edge of therapymat table. Reaching left hand to PT's hand from various angles and distances to encourage weight shifting outside base of support. Static Standing Balance: Static standing, Midline orientation, Eyes open, Lateral weight shifts, Anterior/posterior weight shifts Static Standing Balance Comments: Worked on standing balance within Shannan Stedy in AM and PM, patienttolerated bouts of standing for up to 30 seconds before fatiguing. Requiring maximal assistance to facilitate upright posture with terminal hip extension, and maximal assistance to facilitate weight shifts. Patient's knees/shins leaning heavily against Shannan Stedy. Decreased tolerance in afternoon, patient reporting increased pain in R knee. Support Required: Maximal assistance Therapeutic Exercise: Seated Exercise: Long arc quads, Marching, Knee flexion Sets/Repetitions: x10 each Seated Exercise Comments: Providing increased facilitation and assistance on R to achieve full rangeof motion. Performed in AM and PM sessions. ROM/Stretching Lower Extremity ROM/Stretching-Side Addressed: Bilateral LE ROM/Stretching Position: Supine LE ROM/Stretching Exercise Type: Low-load prolonged stretch LE ROM Comments: PT facilitated hamstring, gluteal and heel cord stretches bilaterally. Increased tone and tightness noted on R. Patient/Family Education: Discussed plan of care and goals; positioning in bed; skin protection withknee and ankle brace; safe techniques with functional mobility Education Provided to: Sal Learner's Response: Able to demonstrate, Requires cueing and Requires continued education At the end of today's therapy session patient was left in bed with present with an appropriate call light within reach. Patient's needs and questions addressed during today's session. Contact monitoring: PPE used during therapy: Therapist was wearing the following PPE throughout entire session: surgicalmask and eye protection Patient was wearing a mask during therapy session: when out of room Family member/caregiver present was wearing a mask: Intermittently Assessment Patient pleasant and participative in physical therapy. Increased participation and activity tolerance in AM session today, patient fatiguing quickly with standing activities. With repetition of functional transfers, Aurora demonstrates improved set-up and sequencing, progressing to standing with moderate assistance x1 with Shannan Stedy from elevated seat height. She continues to fatigue quickly upon standing, and has difficulty initiating standing weight shifts or marches in place as she relies heavily on knee block of Shannan Stedy. Her continues to be a positive support, and is highly engaged and receptive to all education. Aurora remains below her functional baseline and will continue to benefit from intensive rehabilitation services in a multidisciplinary setting to optimize her independence and achieve her team goals. Barriers to Discharge Home: Current functional status, Safety concerns, Fall risk Barriers to Discharge Comments: Requires assist of two for mobilizing Comorbid Conditions: Other (Comment), Cerebrovascular accident (see [facility] for full medical history) Personal Factors: Balance impairment, Communication deficit, Hand dominance, History of falls, Needsassistive device, Safety awareness Discharge Therapy Needs - PT: Ongoing skilled physical therapy Level of Care Needed - PT: Assistance with transfers (Comment), Assistance with walking and moving around the home, Assistance with bed mobility, Cognitive assistance needed Equipment Recommended - PT: Other (Comment) Equipment Vendor - PT: pending ongoing assessment, Shannan Stedy may be beneficial for transfers/etc. Functional Goals and Timeframes: PT Goal #1: Patient and spouse will be able to perform bed mobility using no hospital bed features with Min A x1 in order to increase independence in home. PT Goal #1 Date: 09/12/21 PT Goal #1 Status: Slowly progressing PT Goal #2: Patient will be able to complete sit to/from stand transfer using Shannan Stedy or most appropriate gait device with Mod A x1 in order to improve household mobility. PT Goal #2 Date: 09/12/21 PT Goal #2 Status: Slowly progressing PT Goal #3: At discharge, patient will be able to perform stand pivot transfer using least restrictive device with Mod A x1 in order to improve household mobility. PT Goal #3 Date: 09/19/21 PT Goal #3 Status: Slowly progressing PT Goal #4: Patient will demonstrate ability to maintain unsupported sitting at least 30 seconds to improve mobility and safety. PT Goal #4 Date: 09/19/21 PT Goal #4 Status: Slowly progressing Progress: Progressing toward goals Plan Patient agrees with the plan of care and goals. Treatment Plan: PT Frequency: 6 times per week PT Amount: 2 visits per day PT Inpatient Duration : Until goals are met or hospital discharge Plan: Continue with current plan PT Plan Comments: Continue progression towards improved participation and safety with functional mobility. Progress towards mobility with Ax1 with caregiver training. Treatment interventions may include: Treatment/Interventions: Therapeutic exercise, Therapeutic functional activity, Neuromuscular re-education, Gait training, Self-care/home management, Orthosis qghpfezlyhn-[id number]-nioccta Time Spent with Patient Neuromuscular Re-Education (min): 25 min Therapeutic Activity (min): 50 min Therapeutic Exercise (min): 15 min Total Timed Units (min): 90 min Total Treatment Time (min): 90 min Amparo Farmer P.T., D.P.TMyesha Niyah Early M.D. - 09/07/2021 7:32 AM CDT SUBJECTIVE Mrs. Aurora Langley is a 76-year-old, right-handed, [place]-speaking woman with past medical history of TBI with residual posttraumatic epilepsy, right spastic hemiparesis and expressive aphasia s/p SKY LINE YARDER shunt (1995) and lumbar spinal stenosis now status post L2-L5 lumbar laminectomy on 09/02/[address] Castellon. She is admitted to acute inpatient rehabilitation for lower extremity weakness and impairments in gait and ADL performance. No acute events overnight. No recurrence of fever or development of any additional infectious symptoms. She reports that her pain is well controlled. After discussion, Mrs. Langley and her agree with discontinuation of oxycodone and transitioning Tylenol to as needed today. She had several bowel movements yesterday and is feeling better from that perspective. She required one intermittent catheterization yesterday for a volume of 250 cc. All questions and concerns were addressed to the bestof my ability. OBJECTIVE Temperature: [36.7 ??C-38.2 ??C] 36.7 ??C Resp Rate: [17-18] 17 Blood Pressure: (136-160)/(80-92) 138/80 SpO2: [94 %-95 %] 94 % Weight: [67.7 kg] 67.7 kg BMI (Calculated): [22.8 kg/m??] 22.8 kg/m?? Last Stool Occurrence: 1 (pt did self manual extraction on commode) (09/07/21 0330 : José Miguel Hill R.N.) Intake/Output Summary (Last 24 hours) at 09/07/2021 0732 Last data filed at 09/06/2021 2316 Gross per 24 hour Intake 880 ml Output 251 ml Net 629 ml Bowel Incontinence: No (09/07/21329 : Elaine Hill, R.N.) Unmeasured Urine Occurrence: 1 (09/06/212315 : Sonido Mendoza R.N.) Urinary Incontinence: Yes (09/06/212315 : Sonido Mendoza R.N.) Physical Exam: General: Pleasant woman, lying comfortably in bed this morning, no acute distress HEENT: Normocephalic, atraumatic. Hearing grossly intact. Cardiovascular: Regular rate and rhythm Respiratory: No dyspnea or use of accessory muscles. Respiratory rate as noted above in vital signs. Abdomen: Soft, nondistended. Skin: No rashes or lesions appreciated on exposed areas of skin. Neuro Exam: Mental Status: Grossly oriented. Alert. Appropriate mood and affect. Language: Expressive aphasia, assists a lot in helping her come up with the words to say, translates into Barb[place] for her intermittently Extremities: Normal inspection. [place] Islander knee cage brace on right knee and ankle brace on right ankle Diagnostics I reviewed the imaging studies and agree with the interpretation as recorded. I reviewed the pertinent laboratory data and diagnostic data. Labs: Urine culture demonstrates no growth after 24 hours. Hemoglobin stable this morning at 9.6, white blood cell count 8.6 ASSESSMENT / PLAN Mrs. Aurora Langley is a 76-year-old, right-handed, [place]-speaking woman with past medical history of TBI with residual posttraumatic epilepsy, right spastic hemiparesis and expressive aphasia s/p SKY LINE YARDER shunt (1995) and lumbar spinal stenosis now status post L2-L5 lumbar laminectomy on 09/02/[address] Castellon. She is admitted to acute inpatient rehabilitation for lower extremity weakness and impairments in gait and ADL performance. Plan for Today (09/07/21): - Discontinue as needed oxycodone - Transition Tylenol to as needed - No recurrence of fever, no growth on urine culture, no leukocytosis, will continue to monitor closely for now - Repeat CBC September 10 to monitor hemoglobin # Lumbar spinal stenosis with neurogenic claudication s/p L2-L5 laminectomy (09/02/21) # Progressive lower limb weakness # Gait unsteadiness # History of TBI resulting in spastic right hemiparesis, posttraumatic epilepsy and expressive aphasia - Comprehensive PT/OT - Restrictions: 15-20 pound lifting restriction and no heavy lifting, twisting or bending for 6 weeks post-op which will be October 14 - Pain control regimen includes: Tylenol 1000 mg every 6 hours as needed Oxycodone 2.5 mg twice daily as needed discontinued September 07 - Continue home carbamazepine 500 mg BID, levetiracetam 500 mg qAM, 250 mg with lunch, 500 mg qPM and folic acid 1,000 mcg daily - Neurosurgery will coordinate outpatient follow-up - Neurology consult recommended continuing at home doses of carbamazepine and levetiracetam - has diazepam PRN to be given only if having seizure-like activity for >5 minutes (one eye closed, face-glossing over, right eyelid twitching, and NOT responding or following commands), can be given 2x for a total of 10 mg if not responsive to first dose ?? # Hyperlipidemia - Continue home atorvastatin 10 mg every 48 hours - Continue home aspirin 81 mg daily ?? FULL CODE as discussed with patient. Surgical Incision Bantam: can be removed 14 days post-op (09/16) Diet: Regular DVT prophylaxis: Lovenox Bowel: bowel medication regimen as needed Bladder: currently voiding; will perform I&O catheterization as needed Disposition: ELOS 7 days; goal to home ?? [place] contact the [facility] [place] [phone] with any questions or concerns. Niyah Early M.D. PM&R, PGY-2 Associated attestation - Laura Cardenas M.D. - 09/07/2021 2:30 PM CDT I saw and evaluated the patient, participating in the trinh portions of the service. I reviewed the resident/fellow???s note. I agree with the resident/fellow???s findings and plan. Ms. Langley is capable of participating in rehabilitation. She continues to progress towards functional independence in the area(s) of mobility, self-care, and cognition and will benefit from ongoing intensive inpatient rehabilitation. She was seen at bedside. Her was present. He indicates that she is doing better and more alert today. I spoke to occupational therapy. She needs cuing to maintain sitting upright. They are working on transfers with the Shannan STeady and these are going well. Bladder is at baseline. She denies any pain. Weekend events were reviewed. Specifically, there was initially some concern regarding seizures however it appears that this is primarily a medication related somnolence. At this point, oxycodone and Robaxin have both been discontinued therefore we will monitor her mental status. I personally spent over half of a total 20 minutes in counseling and discussion with the patient andcoordination of care as described above. Vi Sinha M.S., O.T. - 09/06/2021 3:07 PM CDT Occupational Therapy Rehabilitation [facility] Inpatient Progress Note SUBJECTIVE Patient's Name: Aurora Langley Reason for Referral: OT spine eval/treat: IRF Medical Diagnosis: 1. Lack Of Coordination History of Present Illness: POD#1 s/p L2-L5 laminectomies for lumbar stenosis with gait instability by Dr. 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 Onset Date: 09/02/21 Patient/Caregiver Goals: be able to complete cares with support of spouse to return home Precautions Other Precautions: fall, history of TBI, expressive aphasia, no functional use of RUE, uses R AFO and knee brace for ambulation Fall Risk (65 and older) Fall in the last 12 months: Yes Did you have an injury with the fall?: No Are you fearful of falling?: Yes Fall Risk Comments: patient slipped out of the bed OBJECTIVE Pain: none Vitals: Not indicated at this time ADLs: UE Dressing UE Dressing Delivery: Therapist Assisted UE Dressing Items Included: manager recovery shirt UE Dressing Level of Assistance: max a UE Dressing Location: Chair Max a to don button down shirt LE Dressing LE Dressing Location: Chair LE Dressing Delivery: Therapist Assisted LE Dressing Items Included: Socks, Shoes, Pants, Underwear/Adult incontinence briefs LE Dressing Level of Assistance: max assistance LE Dressing Comments: max a to thread clothing over feed and stand with assist of 2 to don over hipswhile using shannan steady. NEUROMUSCULAR REEDUCATION: Therapist facilitates trunk control with functional reach from wheelchair position while maintainingspine precautions. Posterior to anterior weight shift. Lateral R-L weight shift Task graded up to incorporate weight shift with anterior reach with and without 1 # weighted targets Therapeutic exercise: Therapist introduces light resistive training to LUE for strength and endurance needed during functional transfers and self cares Jewell theraband 10 reps Vc to maintain spine precautions Emphasis on shoulder, chest and tricep: shoulder flexion, extension, abduction, adduction, horizontal adduction, tricep extension PM session: emphasis on posture with stretching into extension as patient presents with forward flexed posture: Prolonged hold for shoulder retraction, head retraction, neck stretching L and R sides Patient/Family Education: Education Provided to: Aurora Learner's Response: Able to teach back, Able to demonstrate, Requires cueing and Requires continued education At the end of today's therapy session patient was left seated in bedside chair with an appropriate call light within reach. Patient's needs and questions addressed during today's session. Contact monitoring: PPE used during therapy: Therapist was wearing the following PPE throughout entire session: surgicalmask and eye protection Assessment Patient is a very pleasant 76-year-old female who was admitted to the inpatient rehabilitation unit s/p L2-L5 laminectomies for lumbar stenosis with gait instability by Dr. Castellon; history of TBI 1995 with expressive aphasia, R hemiparesis, RUE paresis resting in flexed posture.Emphasis today focuses on truncal / posture control as patient presenting with forward flexed posture, demonstrating difficulty sitting unsupported Patient listing to R , requiring min/mod assist to correct especially when sitting unsupported. Spouse noted that postural instability has worsened over last few months. Patient continues to function well below functional baseline and will benefit from ongoing therapy in orderto increase safety, independence and reduce caregiver burden. Barriers to Discharge Home: Current functional status, Safety concerns Barriers to Discharge Comments: requires assist of two for mobilizing Comorbid Conditions: Other (Comment) (history of TBI) Personal Factors: Balance impairment, Communication deficit, Hand dominance, History of falls, Needsassistive device Discharge Therapy Needs - OT: Ongoing skilled occupational therapy Level of Care Needed - OT: Assistance with toileting, Assistance with toilet/shower transfers, Assistance with medication set up/administration, Assistance with showering/bathing, Assistance with dressing, Physical assistance needed Functional Goals and Timeframes: OT Goal #1: STG: Pt will complete stand pivot commode transfer with moderate assistance x2 OT Goal #2: STG:Patient will complete LB dressing with use of ae with moderate assist of 1 OT Goal #3: STG:Pt will be able to maintain standing with adaptive setup and moderate assistance to allow caregiver to safely assist with clothing management for self cares and to participate in grooming tasks. OT Goal #4: LTG :Pt's spouse will verbalize understanding on safe mechanics and DME for patient to continue to participate with ADL cares Progress: Progressing toward goals Plan Patient agrees with the plan of care and goals. Treatment Plan: OT Frequency: 6 times per week OT Amount: 2 visits per day OT Inpatient Duration : Until goals are met or hospital discharge Plan: Plan of care initiated Treatment interventions may include: Treatment Interventions: Therapeutic exercise, Therapeutic functional activity, Neuromuscular re-education, Self-care/home management Time Spent with Patient Home Management Training (min): 30 min Neuromuscular Re-Education (min): 30 min Therapeutic Exercise (min): 30 min Time Calculation Total Timed Units (min): 90 min Total Treatment Time (min): 90 min Corina Sinha M.S., O.T. Tomas Gilliam PNasima, D.P.T. - 09/06/2021 8:11 AM CDT Physical Therapy [facility] Inpatient Treatment SUBJECTIVE Patient's Name: Aurora Langley Reason for Referral: PT Evaluate and Treat: Inpatient rehabilitation Medical Diagnosis: 1. Lack Of Coordination History of Present Illness: Patient is s/p L2-L5 laminectomies for lumbar stenosis with gait instability by Dr. 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 Onset Date: 09/02/21 Patient/Caregiver Goals: be able to complete cares with support of spouse to return home Patient Comments: states that the patient can understand some [place], however does have limited verbal communication. is able to provide interpretation as needed. Precautions Other Precautions: fall, history of TBI, expressive aphasia, no functional use of RUE, uses R AFO and knee brace for ambulation Fall Risk (65 and older) Fall in the last 12 months: Yes Did you have an injury with the fall?: No Are you fearful of falling?: Yes Fall Risk Comments: patient slipped out of the bed at home OBJECTIVE Pain: Patient did report moderate right knee pain towards the end of the session, and nursing was contacted for providing Tylenol as indicated. noted that the patient did skip her earlier dose of Tylenol due to testing. Bed Mobility - Rolling # of Assistants: 1 Level of Assistance: Maximal assistance Device: Bed Rail Cuing: Verbal, Tactile Comments: P.T. provided Max A x1 for rolling, patient able to participate slightly with left UE on bed rail, although P.T. provided assist for LE and trunk movement. Bed Mobility - Supine to Sit # of Assistants: 1 Level of Assistance: Maximal assistance Device: Bed rail, Head of bed elevated Comments: Patient required Max A x1 for LE management and assist at trunk for rising to sitting. Able to participate with push from L LE to rise sidelying to sitting. Required assist at trunk upon sitting for stability as she tends to fall posterolaterally to the right. Bed Mobility - Sit to Supine # of Assistants: 1 Level of Assistance: Maximal assistance Device: Head of bed elevated Cuing: Verbal, Tactile Comments: P.T. provided cuing for movement sequence, patient required Max A x1 for trunk and LE management. Bed Mobility - Scooting # of Assistants: 2 Level of Assistance: Maximal assistance Comments: Max A x2 to scoot posteriorly seated at edge of bed. Sit to Stand Transfers # of Assistants: 2 Transfer Surface: Bed, Chair, Toilet/Commode Transfer Equipment: Gait belt, Other (comment) (Shannan Stedy) Level of Assistance: Maximal assistance Assessment/Delivery: Assessed, Instructed, Therapist assisted, Facilitated Comments: P.T. and shampoo assistant provided Max A x2, with cuing and hand over hand guidance for patient using left UE to grab the bar. Provided Max A x2 at hips and trunk for lift and upright alignment, as well as assist at hips for standing stability. Patient able to briefly maintain standing position with Mod A x1 before fatiguing and sitting. Improved participation today with foot placement and left hand placement on bar. Performed in PM session with assist of PT and , with caregiver education regarding strategies for efficiency and safety with assist. Stand to Sit Transfers # of Assistants: 2 Transfer Surface: Bed, Chair Transfer Equipment: Gait belt, Other (comment) (Shannan Stedy) Level of Assistance: Maximal assistance Assessment/Delivery: Assessed, Instructed, Facilitated, Educated Comments: Same assist as with sit to stand, with increased facilitation for slow controlled eccentric sitting. Bed, Chair, Wheelchair Transfers # of Assistants: 2 Transfer Surface: Bed, Chair Transfer Approach: To and from (Shannan Stedy) Transfer Equipment: Other (comment) (Shannan Stedy) Level of Assistance: Total assistance Comments: Max A x2 as above for sit to/from stand, use of Shannan Stedy for transfer to/from bed/chair. PT Neuromuscular Re-education Neuromuscular Re-education 1: P.T. facilitated practice repeated partial sit to stands in the Shannan Stedy, with PT and shampoo assistant providing mod to Max A x2. P.T. providing assistance posterior with bilateral hip extension, as well as cuing and facilitation at shoulders for upright posture. Patient is able to demonstrate improved upright posture when focusing on something in front of her, today her was standing in front of her for this purpose. She is able to tolerate standing in Shannan Stedy approximately 30 seconds with Mod A x1 at bilateral hips. Neuromuscular Re-education 2: P.T. facilitated practice of seated weight shifts and reaching. Loom Fixer Apprentice was behind the patient supporting her with an exercise ball and guiding trunk posture. P.T. was seated anterior to the patient, and patient was instructed to grasp her right hand with her left and reach both hands forward towards the target of the therapist's hand. Initially began with limited ROM,progress to reaches requiring trunk activation and anterior lean. When progressing to reaches over shoulder level, P.T. provided hand-held guidance of patient's hands to assist with greater ROM. Seated Exercise - Side Addressed: Bilateral Seated Exercise: Long arc quads, Knee flexion, Ankle pumps Sets/Repetitions: x10 each Seated Exercise Comments: P.T. provided hand for a target during performance of these exercises, andprovided facilitation for right LE. Tone Reduction Tone Reduction Techniques: Prolonged low load stretch Tone Reduction Comments: Right hamstrings stretch Patient/Family Education: Education regarding strategies for use of Shannan Stedy, and ongoing education regarding insight into deficits and goals of functional progression. Education Provided to: Aurora and Learner's Response: Requires continued education At the end of today's therapy session patient was left seated in bedside chair With cushion and pillow under right arm with an appropriate call light within reach. Patient's needs and questions addressed during today's session. Contact monitoring: PPE used during therapy: Therapist was wearing the following PPE throughout entire session: surgicalmask and eye protection Patient was wearing a mask during therapy session: yes Family member/caregiver present was wearing a mask: yes Additional Staff Present During Session: P.TMyesha gym tech, nurse Assessment Assessment Today, Aurora continues to be very participatory and hard working during sessions. She did note some right knee pain at the end of the AM session, and nursing was contacted for Tylenol. She demonstratesimproved participation with foot placement, left hand placement, and countdown/preparation for sit to stand transfer using Shannan Stedy with max A x 2. Once standing, with cuing and Mod A x1, she is ableto tolerate standing for approximately 30 seconds prior to fatiguing and sitting into the Shannan Stedy. We progressed sitting balance activities, and she demonstrates fair ability to weight shift anteriorly during reaches, although fatigues very quickly and is unable to maintain that position prior to sitting back. Her continues to be very supportive, and is able to translate as needed for more complex commands throughout session. Will benefit from ongoing training on use of Shannan Stedy as appropriate. This patient continues to function below their level of function prior to this medical event and warrants continued skilled and intensive therapy with an interdisciplinary team to meet their goals and medical needs. Barriers to Discharge Home: Current functional status, Safety concerns, Fall risk Barriers to Discharge Comments: requires assist of two for mobilizing Comorbid Conditions: Other (Comment), Cerebrovascular accident (see [facility] for full medical history) Personal Factors: Balance impairment, Communication deficit, Hand dominance, History of falls, Needsassistive device, Safety awareness Discharge Therapy Needs - PT: Ongoing skilled physical therapy Level of Care Needed - PT: Assistance with transfers (Comment), Assistance with walking and moving around the home, Assistance with bed mobility, Cognitive assistance needed Equipment Recommended - PT: Other (Comment) Equipment Vendor - PT: pending ongoing assessment, Shannan Stedy may be beneficial for transfers/etc. Functional Goals and Timeframes: PT Goal #1: Patient and spouse will be able to perform bed mobility using no hospital bed features with Min A x1 in order to increase independence in home. PT Goal #1 Date: 09/12/21 PT Goal #1 Status: Slowly progressing PT Goal #2: Patient will be able to complete sit to/from stand transfer using Shannan Stedy or most appropriate gait device with Mod A x1 in order to improve household mobility. PT Goal #2 Date: 09/12/21 PT Goal #2 Status: Slowly progressing PT Goal #3: At discharge, patient will be able to perform stand pivot transfer using least restrictive device with Mod A x1 in order to improve household mobility. PT Goal #3 Date: 09/19/21 PT Goal #3 Status: Slowly progressing PT Goal #4: Patient will demonstrate ability to maintain unsupported sitting at least 30 seconds to improve mobility and safety. PT Goal #4 Date: 09/19/21 PT Goal #4 Status: Slowly progressing Progress: Progressing toward goals Plan Patient agrees with the plan of care and goals. Treatment Plan: PT Frequency: 6 times per week PT Amount: 2 visits per day PT Inpatient Duration : Until goals are met or hospital discharge Plan: Continue with current plan PT Plan Comments: Continue progression towards improved participation and safety with functional mobility. Progress towards mobility with Ax1 with caregiver training. Treatment interventions may include: Treatment/Interventions: Therapeutic exercise, Therapeutic functional activity, Neuromuscular re-education, Gait training, Self-care/home management, Orthosis [id number] Time Spent with Patient Neuromuscular Re-Education (min): 30 min Therapeutic Activity (min): 60 min Total Timed Units (min): 90 min Total Treatment Time (min): 90 min This note was created using [employer] dictation software. Every effort was made to correct any errors that occurred throughout dictation. Catracho Gilliam P.T., D.P.T. Glynn, Lisa Nelson D.O. - 09/06/2021 7:35 AM CDT SUBJECTIVE Mrs. Aurora Langley is a 76-year-old right-handed, [place]-speaking woman with past medical history of TBI with residual posttraumatic epilepsy, right spastic hemiparesis and expressive aphasia s/p SKY LINE YARDER shunt (1995) and lumbar spinal stenosis s/p L2-L5 lumbar laminectomy (09/02/21). She is admitted to acute inpatient rehabilitation for lower extremity weakness and impairments in gait and ADLs. No acute events overnight. This morning, she is febrile to 38.2 C. Per nursing, she had coarse breath sounds yesterday evening and some wheezing during a transfer. She denies chest pain, shortness of breath this AM. She has some back pain around her incision. Her last BM was 09/04. OBJECTIVE Temperature: [37 ??C-37.8 ??C] 37.8 ??C Resp Rate: [16-20] 18 Blood Pressure: (100-141)/(51-77) 141/77 SpO2: [93 %-96 %] 95 % Last Stool Occurrence: Intake/Output Summary (Last 24 hours) at 09/06/2021 0735 Last data filed at 09/06/2021 0700 Gross per 24 hour Intake 1200 ml Output 0 ml Net 1200 ml Unmeasured Urine Occurrence: 1 (09/06/21 0100 : Elaine Hill, R.N.) Urinary Incontinence: Yes (09/06/21 0100 : Elaine Hill, R.N.) Physical Exam: General: Pleasant woman, sitting up in chair at bedside, no acute distress HEENT: Normocephalic, atraumatic. Hearing grossly intact. Cardiovascular: Regular rate and rhythm Respiratory: No dyspnea or use of accessory muscles. Respiratory rate as noted above in vital signs.Lungs clear to auscultation bilaterally Abdomen: Soft, nondistended. Skin: Surgical incision well-approximated with aries. Some serosanguinous drainage from prior drain site, mildly tender to palpation without erythema or fluctuance Neuro Exam: Mental Status: Grossly oriented. Alert. Appropriate mood and affect. Language: Expressive aphasia, assists a lot in helping her come up with the words to say, translates into [place]adian for her intermittently Tone: Right upper extremity spasticity MAS 3 in elbow flexors and radial deviation of wrist, right hip flexor and knee flexor spasticity Extremities: Normal inspection. [place] Islander knee cage brace on right knee and ankle brace on right ankle Diagnostics I reviewed the imaging studies and agree with the interpretation as recorded. I reviewed the pertinent laboratory data and diagnostic data. EXAM: DX CHEST PORTABLE 1 VIEW (09/06/2021) ?? IMPRESSION: No definite change since 06/01/2016. No focal pulmonary consolidation or pleural effusion. Moderate esophageal hiatal hernia. Right chest SKY LINE YARDER shunt tubing. Scattered pulmonary atelectasis. Aortic calcification. ASSESSMENT / PLAN Mrs. Aurora Langley is a 76-year-old right-handed, [place]adian-speaking woman with past medical history of TBI with residual posttraumatic epilepsy, right spastic hemiparesis and expressive aphasia s/p SKY LINE YARDER shunt (1995) and lumbar spinal stenosis s/p L2-L5 lumbar laminectomy (09/02/21). She is admitted to acute inpatient rehabilitation for lower extremity weakness and impairments in gait and ADLs. Plan for Today (09/06/21): - CXR negative for focal consolidation this AM, will obtain UA/urine culture today given new fever. Continue to monitor surgical site incision. Fever could be secondary to post-op atelectasis, will start incentive spirometer today - She does not have a leukocytosis this AM, Hgb came up to 9.9 this AM, will repeat CBC tomorrow forfurther monitoring - Neurology consult recommended continuing at home doses of carbamazepine and levetiracetam - has diazepam PRN to be given only if having seizure-like activity for >5 minutes (one eye closed, face-glossing over, right eyelid twitching, and NOT responding or following commands), can be given 2x for a total of 10 mg if not responsive to first dose - she did not use any PRN methocarbamol or oxycodone yesterday, will discontinue methocarbamol todayand will decrease oxycodone to 2.5 mg BID PRN - anticipate discontinuing oxycodone in the coming days # Lumbar spinal stenosis with neurogenic claudication s/p L2-L5 laminectomy (09/02/21) # Progressive lower limb weakness # Gait unsteadiness # History of TBI resulting in spastic right hemiparesis, posttraumatic epilepsy and expressive aphasia - Comprehensive PT/OT - Restrictions: 15-20 pound lifting restriction and no heavy lifting, twisting or bending for 6 weeks post-op (10/14) - Pain control: Tylenol 1,000 mg q6h, and oxycodone 2.5 mg BID PRN. Methocarbamol has been weaned. Will continue to wean oxycodone as tolerated - Continue home carbamazepine 500 mg BID, levetiracetam 500 mg qAM, 250 mg with lunch, 500 mg qPM and folic acid 1,000 mcg daily - Neurosurgery will coordinate outpatient follow-up - Neurology consult recommended continuing at home doses of carbamazepine and levetiracetam - has diazepam PRN to be given only if having seizure-like activity for >5 minutes (one eye closed, face-glossing over, right eyelid twitching, and NOT responding or following commands), can be given 2x for a total of 10 mg if not responsive to first dose ?? # Hyperlipidemia - Continue home atorvastatin 10 mg every 48 hours and aspirin 81 mg daily ?? FULL CODE as discussed with patient. Surgical Incision Bantam: can be removed 14 days post-op (09/16) Diet: Regular DVT prophylaxis: Lovenox Bowel: bowel medication regimen as needed Bladder: currently voiding; will do bladder scan PVRs to rule out retention Disposition: ELOS 7 days; goal to home ?? Please contact the [facility] [place] [phone] with any questions or concerns. Lisa Maki, D.O. PM&R, PGY-2 Associated attestation - Tiff Cordova M.D. - 09/06/2021 10:55 AM CDT I saw and evaluated the patient, participating in the trinh portions of the service. I reviewed the resident/fellow???s note. I agree with the resident/fellow???s findings and plan. Ms. Langley is capable of participating in rehabilitation. She continues to progress towards functional independence in the area(s) of mobility, self-care, communication, and cognition and will benefit from ongoing intensive inpatient rehabilitation. She slept well overnight. Per nursing and ,she had one time event of coarse breath sounds and wheeze that sounded line a baby tiger during a transfer yesterday, but it has not recurred. She was febrile at 38.2 C this morning. She denies chestdiscomfort, dyspnea, pelvic pressure/discomfort, dysuria, chills, night sweats, change in surgical incision pain. On exam she appears clinically well, nontoxic, incisions are clean and dry, no overt signs of infection, no calf swelling or tenderness. Labs reviewed today and H&H stable, no leukocytosis. CXR stable from previous. Obtaining UA C&S and ordered incentive spirometry q2 HWA. Continue to monitor closely. No other major changes to rehabilitation or medical plans of care. PPE use information for possible contact monitoring: PPE used during visit: Provider was wearing a mask and eye protection throughout entire session. Patient was NOT wearing mask during entire session. Additional person present and PPE use: spouse, Surgical mask Tiff Cordova M.D. Denise Covarrubias, Pharm.D., R.Ph. - 09/05/2021 1:56 PM CDT Images from the original note were not included. Pharmacist Progress Note ?? Reason for admission: s/p L2-5 lami on 09/02 PMH: Epilepsy, TBI, HLD ? OBJECTIVE Home medications: ?? Held: Supplements ?? Changed: None ?? Prophylaxis: Lovenox 40 daily ? ASSESSMENT / PLAN 1. Neuro: Continues home Carbatrol 500 mg BID and Keppra 500-250-500 TID. 1. Last Keppra level= 9.4 on 09/05 (typical range= 10-40 but does not correlate well to efficacy). Total carbamazepine level= 13.3 on 09/05 (slightly above goal range of 4-12). Neuro consulted: recommends to continue current doses of Carbatrol and Keppra. 2. CV: Continues home ASA 81 and Lipitor 10 mg q48h 3. Pain: Gunnar APAP, prn oxycodone (15 mg yest) and prn methocarbamol. 4. GI: Gunnar and prn BR. LBM 09/04. ? Denise Covarrubias, Pharm.D., R.Ph. ?? Glynn, Lisa Nelson D.O. - 09/05/2021 7:34 AM CDT SUBJECTIVE Mrs. Aurora Langley is a 76-year-old right-handed, [place]-speaking woman with past medical history of TBI with residual posttraumatic epilepsy, right spastic hemiparesis and expressive aphasia s/p SKY LINE YARDER shunt (1995) and lumbar spinal stenosis s/p L2-L5 lumbar laminectomy (09/02/21). She is admitted to acute inpatient rehabilitation for lower extremity weakness and impairments in gait and ADLs. Yesterday evening, service was paged due to her expressing concern that she was having seizure-like activity. See Dr. Paul's note from 09/04 for details. No acute events overnight. Per nursing, no more seizure-like activity was observed overnight. This morning, she feels well. Her feels she is doing much better and appears more back to her baseline as far as mental status goes. He still expresses concern regarding how much assistance she is needing for transfers. We discussed that a Neurology consult has been placed given her possible seizuresyesterday, and he and patient were grateful. Vital signs are stable. OBJECTIVE Temperature: [36.4 ??C-37.3 ??C] 37 ??C Resp Rate: [14-16] 16 Blood Pressure: (103-122)/(47-68) 105/58 SpO2: [93 %-98 %] 93 % Height: [172.2 cm] 172.2 cm Last Stool Occurrence: Intake/Output Summary (Last 24 hours) at 09/05/2021 0734 Last data filed at 09/04/2021 2130 Gross per 24 hour Intake 600 ml Output -- Net 600 ml Unmeasured Urine Occurrence: 1 (09/04/212199 : Shanita Durant, RMyeshaN.) Urinary Incontinence: Yes (09/04/21 2200 : Shanita Durant RMyeshaN.) Physical Exam: General: Pleasant woman, lying in bed, no acute distress HEENT: Normocephalic, atraumatic. Hearing grossly intact. Cardiovascular: Hemodynamically stable, no lower extremity edema Respiratory: No dyspnea or use of accessory muscles. Respiratory rate as noted above in vital signs. Abdomen: Soft, nondistended. Skin: Surgical incision with some serosanguinous drainage, well-approximated with aries, no erythema or tenderness Neuro Exam: Mental Status: Grossly oriented. Alert. Appropriate mood and affect. Language: Expressive aphasia, assists a lot in helping her come up with the words to say, translates into [place] for her intermittently Tone: Right upper extremity spasticity MAS 3 in elbow flexors and radial deviation of wrist, right hip flexor and knee flexor spasticity Extremities: Normal inspection. [place] knee cage brace on right knee and ankle brace on right ankle Diagnostics I reviewed the imaging studies and agree with the interpretation as recorded. I reviewed the pertinent laboratory data and diagnostic data. ASSESSMENT / PLAN Mrs. Aurora Langley is a 76-year-old right-handed, [place]-speaking woman with past medical history of TBI with residual posttraumatic epilepsy, right spastic hemiparesis and expressive aphasia s/p SKY LINE YARDER shunt (1995) and lumbar spinal stenosis s/p L2-L5 lumbar laminectomy (09/02/21). She is admitted to acute inpatient rehabilitation for lower extremity weakness and impairments in gait and ADLs. Plan for Today (09/05/21): - Neurology consult for questions regarding whether EEG monitoring or adjustment of AED doses are needed - carbamazepine and levetiracetam levels drawn this morning prior to AM doses, levels pending - BMP stable this AM, Hgb dropped from 11.2 on 09/02 to 9.2 this AM, wondering if dilutional as all cell lines decreased, she is hemodynamically stable. Will recheck CBC tomorrow - has diazepam PRN to be given only if having seizure-like activity for >5 minutes (one eye closed, face-glossing over, right eyelid twitching, and NOT responding or following commands) # Lumbar spinal stenosis with neurogenic claudication s/p L2-L5 laminectomy (09/02/21) # Progressive lower limb weakness # Gait unsteadiness # History of TBI resulting in spastic right hemiparesis, posttraumatic epilepsy and expressive aphasia - Comprehensive PT/OT - Restrictions: 15-20 pound lifting restriction and no heavy lifting, twisting or bending for 6 weeks post-op (10/14) - Pain control: Tylenol 1,000 mg q6h, methocarbamol 750 mg q6h PRN, and oxycodone 2.5-5 mg q6h PRN. Will wean the methocarbamol and oxycodone as tolerated - Continue home carbamazepine 500 mg BID, levetiracetam 500 mg qAM, 250 mg with lunch, 500 mg qPM and folic acid 1,000 mcg daily - Neurosurgery will coordinate outpatient follow-up - Neurology consult - has diazepam PRN to be given only if having seizure-like activity (one eye closed, face-glossing over, right eyelid twitching, and NOT responding or following commands) ?? # Hyperlipidemia - Continue home atorvastatin 10 mg every 48 hours and aspirin 81 mg daily ?? FULL CODE as discussed with patient. Surgical Incision Aries: can be removed 14 days post-op (09/16) Diet: Regular DVT prophylaxis: Lovenox Bowel: bowel medication regimen as needed Bladder: currently voiding; will do bladder scan PVRs to rule out retention Disposition: ELOS 7 days; goal to home ?? Please contact the [facility] [place] [phone] with any questions or concerns. Lisa Maki D.O. PM&R, PGY-2 Associated attestation - Tiff Cordova M.D. - 09/05/2021 12:04 PM CDT I saw and evaluated the patient, participating in the trinh portions of the service. I reviewed the resident/fellow???s note. I agree with the resident/fellow???s findings and plan. Ms. Langley is capable of participating in rehabilitation. She continues to progress towards functional independence in the area(s) of mobility, self-care, communication, and cognition and will benefit from ongoing intensive inpatient rehabilitation. She is much more awake, alert and interactive thismorning compared to yesterday. No additional concerns for seizure-like activity since yesterday evening. Continue judicious use of opiate analgesics and muscle relaxant. Labs reviewed this morning and notable for post-operative anemia. WBC is within normal limits. Carbamazepine level mildly elevated. Keppra level pending. Appreciate Neurology expertise regarding possible breakthrough seizures. Continue to monitor closely, PRN diazepam for seizure >5 min. No other major changes to medical and rehabilitation plans of care today. PPE use information for possible contact monitoring: PPE used during visit: Provider was wearing a mask and eye protection throughout entire session. Patient was NOT wearing mask during entire session. Maame Voss Ellen M, M.D. - 09/04/2021 6:34 PM CDT Paged by charge nursing that the patient's thought she was having a seizure and wanted to give her home rescue medication diazepam. He describes her as having her left eye closed, a nervous twitch above her right eye, and going glossy-eyed. He says she was then confused and somnolent, but was still communicating. These symptoms resolved and she is now sleeping. This is different then her suspected seizures at home which he believes are the causes of episodes where she loses the ability to communicate. Her most recent GTC was 9-18mo ago, according to him. Her rescue medication is Diazepam which is dosed as 10mg/2mL. It is unclear if he gives her 5 or 10mg doses when he thinks she is having a seizure. He says after that she will fall asleep and wake up and bebetter. It was also discovered that he had given her doses of Keppra and carbamazepine from his homesupply. It is unclear how long he has been providing medications while she has been in the hospital.She did not get diazepam during this episode. The resident was able to arouse her and she followed a few basic commands, but otherwise is sleeping. This does explain the patients presentation today where she was confused this morning and unable to use her spoon at breakfast or properly place her cup down on the table. She was then somnolent for most of the day. This was previously attributed to increased doses of opioids along with three days of scheduled methocarbamol. A CT head at the time was negative for acute intracranial pathology. - Paged Neuro emergency consults - If waking up and following commands, give her time to recover. - If not waking up or following commands, give rescue med, call Emergency Neuro for acute consult - Will not repeat imaging - Get trough AED levels tomorrow AM before AM meds - Diazepam has been ordered as a rescue med - Discussed with her that he should not administer any medications to her and should ask nursing if he believes something should be given - Will order CBC and BMP to check routine labs in case infection or electrolyte abnormality is contributing - Ordered seizure precautions - Will consult neurology formally tomorrow (09/05) - Questions about consideration for loading doses,increased basal doses, and routine EEG monitoring Answered all of her husbands questions. Belkys Paul M.D. Fellow, Brain Injury Medicine Physical Medicine & Rehabilitation Laura Cardenas M.D. - 09/04/2021 5:53 PM CDT Physical Medicine and Rehabilitation [facility] Rehab Individualized Overall Plan of Care 09/04/2021 5:53 PM CDT Patient Name: Aurora Langley Date of : 1945 Sex: Female Room/Bed: 215/215-P Payor Info: Payor: MEDICARE / Plan: MEDICARE A AND B / Product Type: Medicare / Etiologic Diagnosis: Laminectomy Lumbar Status Post Admit Date/Time: 09/04/2021 3:09 PM Estimated Length of Stay: Estimated Length of Stay: 7 Anticipated Discharge Destination: 01- Home (private home/apt., board/care, assisted living, penitentiary, transitional living) The following care plan has been synthesized from the Preadmission Screening, the Post Admission Physician Evaluation, and the individual therapy assessments. Medical Prognosis The patient's medical prognosis is Excellent to achieve the stated goals below. Anticipated Interventions: The patient will undergo inpatient rehabilitation to manage complex medical and rehabilitation needsrelated to Laminectomy Lumbar Status Post. The patient will receive interdisciplinary care, including daily rehabilitation physician managementfor the following: Pain, Wound care, Altered Mental Status and Spasticity The patient will benefit from continued services by: PT Projected Minutes/Day: 90 PT Projected Days/Week: 5 OT Projected Minutes/Day: 90 OT Projected Days/Week: 5 Expected Functional Outcomes: Expected Level of Improvement for Mobility: The patient will ambulate safely and independently with a gait aid as needed Expected Level of Improvement for Self Care: Independent with ADLs with or without equip Expected Level of Improvement for Cognition: At baseline Expected Level of Improvement for Communication: At baseline Denise Covarrubias Pharm.D., R.Ph. - 09/04/2021 5:22 PM CDT Pharmacist Progress Note Reason for admission: s/p L2-5 lami on 09/02 PMH: Epilepsy, TBI, HLD OBJECTIVE Home medications: ?? Held: Supplements ?? Changed: None Prophylaxis: SQH> Lovenox 40 daily starting 09/05 ASSESSMENT / PLAN 1. Neuro: Continues home Carbatrol 500 mg BID and Keppra 500-250-500 TID. 1. Last Keppra level= 11.2 on 05/14/21. No recent carbamazepine level. 2. CV: Continues home ASA 81 and Lipitor 10 mg q48h 3. Pain: Gunnar APAP, prn oxycodone (10 mg yest) and prn methocarbamol. 4. GI: Gunnar and prn BR. LBM 09/04. Denise Covarrubias PharmMyeshaD., R.Ph. documented in this encounter H&P Notes Laura Cardenas M.D. - 09/04/2021 6:00 PM CDT Post-Admission Physician Evaluation SUBJECTIVE I saw and evaluated the patient, participating in the trinh portions of the service. I reviewed the resident???s admission note. I agree with the resident???s findings and plan unless otherwise stated below. Please see H&P/Admission notes by Lisa Maki DO ([phone]) and Dr. Belkys Paul, for additional details. ADMISSION ICG Adult; Orthopaedic Disorders Orthopedic Conditions - Other (8.9) Chief Complaint Laminectomy Lumbar Status Post Her was present and assisted with translation. History of Present Illness Frau Langley is a 76-year-old woman with a medical history including a traumatic brain injury in 1995 with residual posttraumatic epilepsy, right spastic hemiparesis, and expressive aphasia. At baseline, she had underlying cognitive difficulties in communication difficulties. She required Min assist f or mobility. She had urinary incontinence. Her assisted at home. Over the past years she has developed progressive lower limb weakness and pseudo claudicatory symptoms. MRI showed evidence lumbar spinal stenosis. Therefore, she underwent L2 through 5 lumbar laminectomy and fusion on 09/02/2021. Postoperatively, her pain was under better control. However, she now requires max assist of 2 therapists for transfers which is a significant change from baseline. Therefore, it was felt like she would benefit from acute inpatient rehabilitation in order to maximize her function with the goal of returning home, review her orthotic devices. Pain is been under good control however her pain medication usage did go up yesterday. Today, she was noted to be more somnolent, with worsening aphasia, and difficulty using a fork as well as less interactive with her . This was a change from baseline. Additionally, she developed a severe right-sided headache. Head CT was completed showing persistent encephalomalacia involving her left occipital, parietal, posterior temporal, and frontal lobes as well as right occipital, posterior temporal, and parietal lobes. Shunt was in place. There was no significant increase in hydrocephalus. There were no intracranial findings including hemorrhage. This afternoon, her indicates that she is more like her typical self. OBJECTIVE Physical Exam General: Sitting up eating. No acute distress. Laughs when I attempt to use Barbadian in conversation. Head: Palpable right-sided shunt with tubing. Mild right facial droop Lungs: She is breathing comfortably on room air Extremities: She is wearing the right [place] knee brace and ankle brace. Motor strength: She has activation on the left side within functional limits. She has -1 strength throughout the right lower extremity with the exception of the ankle dorsiflexors which are more-1.5. Idid not appreciate significant volitional movement in the right upper extremity. Tone: She has increase in spasticity in the right upper limb with the elbow held in flexion, wrist radially deviated, and fingers held in flexion. She has contractures primarily at the MCP and elbow flexor joint. Modified Farideh of 3. Skin: Her surgical incision was examined. She has a mild serosanguineous drainage. 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) #7 Stenosis Spinal Lumbar With Neurogenic Claudication #8 Laminectomy Lumbar Status Post #9 Aphasia Expressive #10 Unsteadiness Gait Disorder Non Orthopedic -The patient is medically capable of participating in rehabilitation activities and continues to require physician monitoring and management during the rehabilitation stay for pain management/weaning of pain medications, bowel management, spasticity management, and wound care -We will admit the patient for comprehensive inpatient rehabilitation including physical therapy, occupational therapy, speech therapy, recreational therapy, rehabilitation nursing care, and rehabilitation psychologist evaluation and treatment. The rehabilitation physician shall monitor the patient's changing functional and clinical status, manage new and preexisting medical conditions, and coordinate care amongst rehabilitation disciplines. -Please see Preadmission Screening for inpatient rehabilitation goals. Occupational Therapy shall work on upper extremity range of motion, fine motor coordination activities, activities of daily living, instrumental activities of daily living, and adaptive equipment needs assessment. Physical Therapy shall work on lower extremity range of motion, lower extremity strengthening and stretching as functionally indicated. Speech Therapy shall work on expression and cognition. Rehabilitation nursing shallmonitor vital signs, behavior, and cognition, monitor and promote medication compliance, provide consistent carry- over of rehabilitation interventions and approaches at the bedside, and offer diagnosis-specific education to the patient's family members. The nurse lawn caretaker shall assist with dismissal planning. I have reviewed the pre-admission rehabilitation assessment. The patient's current medical and functional status remain the same. Estimated Length of Stay: Estimated Length of Stay: 7 Medical Necessity: The patient requires, and is capable of participating in, an intensive and coordinated interdisciplinary acute inpatient rehabilitation program. The patient requires rehabilitation physician visits to monitor medical conditions and coordinate rehabilitation care. The patient's rehabilitation goals and medical complexity cannot adequately be managed in a less intensive setting. Potential risks for clinical complications include seizure activity given her current history of posttraumatic seizures, uncontrolled pain, worsening somnolence, constipation, infection. Medical Prognosis: Good for continued progress and participation with therapy. Functional Status Prior Function (3=independent; 2=Needs some help; 1= Dependent; 8= Unk; 9= NA) Level of [place]: Needs assistance with ADLs; Needs assistance with homemaking (functional decline since 06/2021 per documentation.) ADL Assistance: Required assistance Self-Care: Needs some help Ambulation: Needs some help Wheelchair: Not applicable Stairs: Needs some help Cognition: Other (Comment) (History of TBI) Speech / Language: Aphasia Have you had major surgery in past 100 days?: Yes Current Functional Status (06=independent; 05=Setup or clean-up assistance; 04=Supervision or touching assistance; 03=Partial/moderate assistance; 02=Substantial/maximal assistance; 01=Dependent; 07=Patient refused; 09=NA; 88=Not attempted due to medical condition or safety concerns) Eating: Supervision or touching assistance Grooming: Supervision or touching assistance Upper Body Dressing: Partial/moderate assistance Lower Body Dressing: Dependent Toileting: Dependent (Incontinent) Bathing: Substantial/maximal assistance Bed Mobility: Dependent (2 assist) Transfers: Dependent (2 assist) Functional Mobility: Dependent (2 assist) Distance: 1 Meters Willingness to Participate: Independent Cognition: Supervision or touching assistance (H/O TBI) Communication: Partial/moderate assistance (H/O TBI) Lisa Maki D.O. - 09/04/2021 3:25 PM CDT H&P/ Admission Note SUBJECTIVE Chief Complaint Laminectomy Lumbar Status Post History of Present Illness Mrs. Aurora Langley is a 76-year-old right-handed, Barbadian-speaking woman with past medical history of TBI with residual posttraumatic epilepsy, right spastic hemiparesis and expressive aphasia s/p SKY LINE YARDER shunt (1995) and lumbar spinal stenosis s/p L2-L5 lumbar laminectomy (09/02/21). She is being admitted to acute inpatient rehabilitation for lower extremity weakness and impairments in gait and ADLs. Per review of the electronic medical record and in discussion with the patient: Since her TBI in 1995, she has been ambulatory with use of a right AFO and assistance from her . Over the last 5-8 years, she has experienced slow decline in ambulation. She had not regained meaningful function in her right upper extremity after her TBI. Over the past several years, she also developed worsening symptoms suggestive of lumbar pseudoclaudication. MRI lumbar spine (07/22/21) revealed lumbar spondylosis resulting in severe central canal stenosis from L2-L5. She was evaluated in the outpatient neurosurgery clinic by Dr. Castellon who recommended lumbar decompression laminectomy. She was admitted to [facility] on 09/02/21 for planned lumbar decompression laminectomy. She had indwellingurinary catheter and lumbar drain removed on 09/03. On 09/04, her expressed concern that she is demonstrating worsening aphasia and cognition as well as not attending to things on her right side.Head CT was obtained and was negative for any acute processes. Currently, she feels very tired. She denies pain right now. Her expressed concern regarding her not being able to figure out how to use a spoon this morning during breakfast. He feels she is more tired and drowsy today than previous days. Her reports that she is requiring much more assistance from staff than she needed prior to admission. She endorses feeling weaker and more unsteady in her lower extremities than prior to surgery. Pain controlled with scheduled Tylenol, [id number] mg q6h, and PRN oxycodone. She used 10 mg of PRN oxycodone yesterday and has used 15 mg so far today. She had a small, hard bowel movement this morning. She had an indwelling urinary catheter removed yesterday. She denies changes in her bladder function, and she wears Depends at baseline for urinary leakage/incontinence. ADLs/IADLs: At baseline, she was requiring minimal assistance with transfers, stairs and ADLs from her . Home situation: Patient's goal is to dismiss home with . They live in [place], [place] in a handicap-accessible home. She has bathroom equipment and uses a wheelchair within her home for mobility.Her works as a professor. Her will be available to provide assistance as needed following dismissal. PMR was consulted and evaluated the patient while on the acute hospital floor. Patient was requiringmax assistance with transfers, ambulation of 1 meter with a two-wheel walker and max assistance, maxassistance with lower body dressing and supervision assistance with grooming. Review of Systems Pertinent items are noted in HPI; all other review of systems were negative. OBJECTIVE Temperature: [36.4 ??C-37.4 ??C] 37 ??C Resp Rate: [14-16] 15 Blood Pressure: (103-121)/(47-58) 103/47 SpO2: [95 %-98 %] 98 % Physical Exam GENERAL: Alert. No acute distress. HEENT: Normocephalic, atraumatic. Oral cavity and tongue are unremarkable. HEART: Regular rate and rhythm; no murmurs, rubs, or gallops. LUNGS: No dyspnea. Clear to auscultation bilaterally without wheezes, rhonchi, or rales. ABDOMEN: Soft, nontender, nondistended. EXTREMITIES: No swelling or erythema. No calf tenderness. Has right AFO on SKIN: Exposed areas of skin are clean, dry, and intact with no evidence of cellulitis, pressure ulcers, or necrosis. MENTAL STATUS: Somnolent, wakes intermittently throughout exam NEURO: rest of neuro exam per Dr. Paul???s attestation of this note Diagnostics I reviewed the imaging studies and agree with the interpretation as recorded. I reviewed the pertinent laboratory data and diagnostic data. ASSESSMENT / PLAN Mrs. Aurora Langley is a 76-year-old right-handed, Barbadian-speaking woman with past medical history of TBI with residual posttraumatic epilepsy, right spastic hemiparesis and expressive aphasia s/p SKY LINE YARDER shunt (1995) and lumbar spinal stenosis s/p L2-L5 lumbar laminectomy (09/02/21). She is being admitted to acute inpatient rehabilitation for lower extremity weakness and impairments in gait and ADLs. We will admit for comprehensive inpatient rehabilitation including physical, occupational, speech, recreational, rehabilitation nursing care, rehabilitation psychologist evaluation and treatment, with physiatry to monitor the changing neurological clinical status, manage new and previously existing medical conditions, and coordinate care among rehabilitation disciplines. Please see preadmission assessment screen dated today for inpatient rehabilitation goals. OT to workon upper extremity range of motion, fine motor coordination activities, activities of daily living, instrumental activities of daily living, review of adaptive equipment needs. PT to work on range of motion of the lower extremities, strengthening and stretching of lower limbs as functionally indicated, work on standing, work on transfers, and Gait with/without braces and/or gait aids. Speech to work on expression and cognition. Nursing will monitor variable vital signs and behavior, monitor and coordinate medicine compliance, provide consistent carry-over of rehabilitation interventions and approaches to the bedside, and provide diagnosis-specific education to patient's family members. Nursing fundraising coordinator to assist with dismissal planning. # Lumbar spinal stenosis with neurogenic claudication s/p L2-L5 laminectomy (09/02/21) # Progressive lower limb weakness # Gait unsteadiness # History of TBI resulting in spastic right hemiparesis, posttraumatic epilepsy and expressive aphasia - Comprehensive PT/OT - Restrictions: 15-20 pound lifting restriction and no heavy lifting, twisting or bending for 6 weeks post-op (10/14) - Pain control: Tylenol 1,000 mg q6h, methocarbamol 750 mg q6h PRN, and oxycodone 2.5-5 mg q6h PRN. Will wean the methocarbamol and oxycodone as tolerated - Continue home carbamazepine 500 mg BID, levetiracetam 500 mg qAM, 250 mg with lunch, 500 mg qPM and folic acid 1,000 mcg daily - Neurosurgery will coordinate outpatient follow-up # Hyperlipidemia - Continue home atorvastatin 10 mg every 48 hours and aspirin 81 mg daily FULL CODE as discussed with patient. Surgical Incision Aries: can be removed 14 days post-op (09/16) Diet: Regular DVT prophylaxis: Lovenox Bowel: bowel medication regimen as needed Bladder: currently voiding; will do bladder scan PVRs to rule out retention Disposition: ELOS 7 days; goal to home Please page the Brain Rehab team at [phone] with questions. Lisa Maki D.O. PM&R, PGY-2 Associated attestation - Stephanie Paul M.D. - 09/04/2021 6:09 PM CDT I saw and evaluated the patient, participating in the trinh portions of the service. I reviewed the resident???s note and agree with the resident???s findings and plan unless otherwise stated below. Please see today's note by Lisa Maki DO ([phone]) for additional details. SUBJECTIVE HISTORY OF PRESENT ILLNESS Ms. Langley is a 76yo Barbadian speaking F w/ PMHx of chronic TBI (1995) resulting in posttraumatic epilepsy, right spastic hemiparesis, and fluent aphasia who presents for acute inpatient rehabilitationafter progressive lower extremity weakness and pseudoclaudication symptoms found to have lumbar spinal stenosis now s/p L2-5 lumbar laminectomy (09/02) with new impairments in strength, self- care, and mobility. Per consult note by Dr. Mckeon, ???The patient has had a fairly uncomplicated postoperative course. Rosales catheter and surgical drain remains in place. She has had minimal use of opioids following her surgery.?? She has had one small bowel movement since surgery. She lives in a wheelchair accessible home with her with a walk-in shower with a shower chairwithout a back and grab bars, grab bars around the toilet, and two commodes (one rolling). Her home is already fitted for her baseline impairments due to her chronic spastic right hemiparesis. She mostly uses a wheelchair for mobility. Her works as a professor in [place]. She wears a [place] knee cage and right AFO at baseline. Today she is tired, but easily wakes up. She is able to answer basic questions and says she is not in any pain. Her supplies most of the history and says she does understand and speak some [place]. He does not think she has had any medications or injections for her ???muscle tightness?? and just used to do exercises for it. When she is seen again on the rehabilitation floor she is much more awake. He thinks she does not have many comprehension or speech difficulties but does endorse sometimes she says left when she means right and that he is able to understand the way she expresses her needs. He says she is not oriented to time at baseline. OBJECTIVE PHYSICAL EXAMINATION -- some difficulties completing portions of the exam due to comprehension impairments related to aphasia General Appearance: Well developed, no acute distress, resting comfortably. Skin: No rashes, lesions, or ecchymoses noted. Some serosanguineous drainage from her incision site. Lungs: Normal respiratory effort. Extremities: Warm and well perfused, no edema noted. Neuro Exam: Mental Status: Awake, not oriented to time, short responses with increased processing time and increased reflexes speech, naming is intermittently impaired, repetition is intermittently impaired but when complete it is a combination of [place] and [place] Cranial Nerves: Decreased right lower facial movement otherwise grossly intact, due to comprehensiondifficulties unable to fully test visual perez and sensation Motor: - Full strength throughout her left upper extremity. Left lower extremity with weakness in hip flexion and knee flexion however this could just be confounded by difficulties following commands during exam - Right upper extremity in a shoulder adducted and internally rotated, elbow flexed, wrist flexed radially deviated, and finger flexion posture with spasticity throughout. Contracture likely presents in elbow flexion and MCP flexion. - Right lower extremity with possible antigravity throughout, however this is also confounded by difficulties following commands with exam more so than the left lower extremity. [place] Island[place] knee cage and left commercial AFO brace in place. Coordination & Special testing: No ataxia or dysmetria noted with movements of the left arm Otherwise exam as in resident note. ASSESSMENT / PLAN Ms. Langley is a 76yo Barbadian speaking F w/ PMHx of chronic TBI (1995) resulting in posttraumatic epilepsy, right spastic hemiparesis, and fluent aphasia who presents for acute inpatient rehabilitationafter progressive lower extremity weakness and pseudoclaudication symptoms found to have lumbar spinal stenosis now s/p L2-5 lumbar laminectomy (09/02) with new impairments in strength, self- care, and mobility. #Lumbar Spinal Stenosis s/p L2-L5 laminectomies #Gait Instability #Pseudoclaudication - Pain control previously with scheduled Tylenol and methocarbamol 750mg q6 along with PRN oxycodone5/10mg, given somnolence today likely due to number of pain medications will change methocarbamol toPRN and oxycodone to 2.5/5mg dosing - Monitor incision - Lumbar spine precautions - Neurosurgery to coordinate #Chronic Traumatic Brain Injury #Spastic hemiparesis of the right dominant side: Stable #Posttraumatic Epilepsy #Contracture hand joint right - Continue home orthotics - Carbamazepine 12hr 500mg BID - Keppra 500mg BID #Urinary Incontinence: Stable - PRN bladder scans and I/O cath - Wears Depends at baseline Other meds; ASA 81mg daily Atorvastatin 10mg every other day Folic acid 1,000mg Melatonin 3mg PRN DVT Prophylaxis: Switching to enoxaparin tomorrow Otherwise plan per resident note. Belkys Paul M.D. Fellow, Brain Injury Medicine Physical Medicine & Rehabilitation documented in this encounter Consult Notes Brooklyn Garcia P.T., D.P.T., [facility] - 09/18/2021 11:07 AM CDT Physical Therapy Wheelchair Progress Note By co-signing this document, the provider concurs with the therapist's assessment and agrees with the equipment recommendations below. The co-sign date of this document may be considered the completionof the [id number] evaluation. By co-signing this note, the provider certifies the therapy being provided to this patient is reasonable and necessary for the diagnosis or treatment of this patient. SUBJECTIVE Patient's Name: Aurora Langley Referring Provider: No ref. provider found History of Present Illness: Patient is s/p L2-L5 laminectomies for lumbar stenosis with gait instability by Dr. 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 1. Laminectomy Lumbar Status Post 2. Lack Of Coordination 3. Decline Functional Status 4. Imbalance Non Orthopedic 5. Weakness General 6. Unsteadiness Gait Disorder Non Orthopedic Onset Date: 09/14/21 Payor: MEDICARE / Plan: MEDICARE A AND B / Product Type: Medicare / Pertinent Medical/Surgical History: Patient Active Problem List Diagnosis ??? Epilepsy Seizure Generalized Convulsive (HCC) ??? Stenosis Spinal ??? Injury Brain Traumatic Personal History ??? Contracture Hand Joint Right ??? 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 Injury Intracranial Brain Sequela (HCC) ??? Stenosis Spinal Lumbar With Neurogenic Claudication ??? Laminectomy Lumbar Status Post ??? Aphasia Expressive ??? Unsteadiness Gait Disorder Non Orthopedic Prior Function / Occupational Profile Lives With: Spouse Receives Help From: Family ADL Assistance: Required assistance IADL/Homemaking Assistance: Required assistance Driving: Does not drive Level of [place]: Needs assistance Previous Transfer/Mobility Assistance Comments: progressive loss of independence, was able to ambulate around home with use of grab bars in the home, or with spouse assist; has been using wheelchair primarily with spouse providing assist for transfer from wheelchair<>bed/chair Gait Devices/Wheelchair Used: Manual wheelchair Gait Devices/Wheelchair Used Comments: standing pole Home Living Type of Home: House Home Layout: One level, Able to live on main level with bedroom/bathroom Home Layout Comments: wheelchair accessible to all rooms Home Access: Ramped entrance Bathroom Shower/Tub: Walk-in shower Bathroom Toilet: Comfort height Bathroom Accessibility: Yes How Accessible: Accessible via wheelchair Home Living Comments: patient also has two commodes, one rolling which is put by her main recliner/chair where the is a pole to assist with sit<>stand and a stationary commode by her bed Home Equipment Wheelchair : Manual (has two wheelchair, purchased from [employer]) Bathroom Equipment: Grab bars in shower, Shower chair without back, Grab bars around toilet Precautions Other Precautions: fall, history of TBI, expressive aphasia, no functional use of RUE, R inattention, uses R AFO and knee brace for ambulation with assist OBJECTIVE Height: 172 cm Weight: 64.9 kg Cervical: Forward head Thoracic: Rounded shoulders, Kyphosis Lumbar: Decreased lordosis Sacroiliac: Sacral tilt ROM - Upper Extremity Screen: Impaired right ROM - Upper Extremity Screen Comments: contracted elbow flexion (rests at 90, can passively get to about 70 degrees of elbow flexion when moving into extension), wrist extension, finger flexion Strength - Upper Extremity Screen: Impaired right Strength - Upper Extremity Screen Comments: 0/5 right Strength - Lower Extremity Screen: Impaired right Strength - Lower Extremity Screen Comments: 4/5 throughout RLE except R ankle 3/5 Bed Mobility - Sit to Supine # of Assistants: 1 Level of Assistance: Supervision/Set-up Device: None Sit to Stand Transfers # of Assistants: 1 Transfer Surface: Therapy mat, Wheelchair Transfer Equipment: Gait belt Level of Assistance: Minimal assistance, Moderate assistance Assessment/Delivery: Assessed Comments: assessed SUPERVISOR COATING assisting patient Stand to Sit Transfers # of Assistants: 1 Transfer Surface: Wheelchair, Therapy mat Transfer Equipment: Gait belt Level of Assistance: Moderate assistance Assessment/Delivery: Assessed Comments: assessed SUPERVISOR COATING assisting, assist for eccentric control Bed, Chair, Wheelchair Transfers # of Assistants: 1 Transfer Surface: Wheelchair (mat) Transfer Approach: To and from Transfer Equipment: (stand pivot or low squat pivot chair <--> mat; Shannan Stedy wheelchair to wheelchair) Level of Assistance: Maximal assistance (max assist without Shannan Stedy) Assessment/Delivery: Assessed Comments: assessed transfer with SUPERVISOR COATING, noted patient R knee buckling. Gait Assessment/Training Distance (m): 2 m Surface: Even, Smooth/hard Device: Gait belt, Single rail # of Assistants: 1 Level of Assistance: Moderate assistance Quality/Pattern: Decreased heel strike, Decreased stance time R, Decreased toe off Response: per report from primary therapist (SUPERVISOR COATING) Wheelchair Propulsion #1 Propulsion Type : Manual Method: Left lower extremity (tried with upper and lower extremity but difficult to coordinate, did better with LLE only) Level of Assistance: Minimal assistance Assessment/Treatment: Instructed, Assessed Anatomic Measurements Hip Width (Inches): 17.5 Inches Seat to Knee (Inches): 22 Inches Knee to Heel (Inches): 19.5 Inches Seat to Inferior Angle of the Scapula (Inches): 15 Inches Seat to Shoulder (Inches): 22 Inches Seat to Elbow (Inches): 7 Inches Objective Measures: Education provided: 1. Educated on process for wheelchair procurement. 2. Educated on reasoning for different dimensions of wheelchair. Contact Monitoring: PPE used during therapy: Therapist was wearing the following PPE throughout entire session: surgicalmask and eye protection Patient was wearing a mask during therapy session: yes Family member/caregiver present was wearing a mask: yes Additional Staff Present During Session: Pedro Garcia Assessment Aurora Langley is a pleasant 76 y.o. female who presents to the rehab unit due to declining mobilityfunction in the setting of chronic traumatic brain injury and recent L2-L5 laminectomies. She is accompanied by her , Kirk. Vendor is Pedro Covington. Patient had a brain injury in 1995. After rehab she was able to walk after this injury but since about 2017 she has required assist to walk, needing more and more assist with time. She recently had a lumbar surgery and now requires even more assist to walk. Per report from her primary therapist, she currently walks about 2 meters with moderate assist and a kemi rail-- this in no means is functional ambulation. 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 She is unable to propel with her hands due to significant contractures and 0/5 strength in right upper extremity as a result of the chronic traumatic brain injury. She trialed a K5 wheelchair at this assessment today (with the cushion the wheelchair was 19 inches high). She was able to propel with left foot which included forward, backwards, and turning. It was too hard for her to coordinate kemi propulsion technique (incoorporating left arm). Although her foot could reach the ground she would get better leverage with a lower seat height (17 inches)-- this height is only available in a K5. Additionally, she has long femurs and requires a seat depth (20 inches) that is only available in a K5. The least costlywheelchair that meets this patient's needs and improves her independence is a K5 (ultra lightweight)wheelchair. She is agreeable to utilize this wheelchair in her home. At this time, it was deemed the patient would benefit from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 meeting goals/advancing plan of care: fatigue, limited mobility, urinary incontinence End of Shift Summary: Patient participating well in therapies; transferring pam sterling. assisting with all cares. No complaints of pain. Patient incontinent of urine at times; wears absorbant pad and void attempts to manage bladder. Problem: SAFETY ADULT Goal: Maintain a safe environment Outcome: Progressing Problem: SAFETY ADULT - RISK FOR FALL AND OR FALL INJURY Goal: Patient remains free from fall/fall injury Outcome: Progressing Problem: Incontinence and/or Moisture Goal: Skin integrity is maintained or improved Outcome: Progressing Problem: MUSCULOSKELETAL - ADULT Goal: Return mobility to safest level of function Outcome: Progressing Goal: Maintain proper alignment of affected body part Outcome: Progressing Goal: Optimize ADL status Outcome: Progressing Elaine Hill RFaiza. - 09/23/2021 1:41 PM CDT Shift Goals: Increase independence with ADLs/mobility Identify possible barriers to meeting goals/advancing plan of care: limited mobility, urinary incontinence End of Shift Summary: Patient transferring pam sterling to wheelchair/chair, bed and commode. No complaints of pain. Patient incontinent of urine; wears pad and void attempts. helping with all cares. Problem: SAFETY ADULT Goal: Maintain a safe environment Outcome: Progressing Problem: SAFETY ADULT - RISK FOR FALL AND OR FALL INJURY Goal: Patient remains free from fall/fall injury Outcome: Progressing Problem: PAIN - ADULT Goal: PT VERBALIZES/DEMONSTRATES ADEQUATE COMFORT LEVEL OR BASELINE Outcome: Progressing Problem: MUSCULOSKELETAL - ADULT Goal: Return mobility to safest level of function Outcome: Progressing Goal: Maintain proper alignment of affected body part Outcome: Progressing Goal: Optimize ADL status Outcome: Progressing Problem: Incontinence and/or Moisture Goal: Skin integrity is maintained or improved Outcome: Not Progressing Haroldo Singh R.N. - 09/23/2021 7:49 AM CDT Shift Goals: Clinical Goals for the Shift: Will promote sleep for patient overnight Identify possible barriers to meeting goals/advancing plan of care: None End of Shift Summary: Slept well overnight. Called to toilet although had been incontinent twice. Patient adjusted her bed into Trendelenburg. Bed controls locked to prevent potential sliding out of bed. Sam Barnes R.N. - 09/21/2021 2:52 PM CDT Shift Goals: End of Shift Summary: Pt has been cooperative with all cares today. Spouse needed to leave at noon for personal business and pt used CL appropriately when he was gone. Has been continent of bowel and bladder today. Nursing continues to use Shannan Steady for all in room transfers. Dismissal set for end of this week to home. Carol Doe CRRN - 09/21/2021 2:30 PM CDT Met with rehabilitation team during interdisciplinary team conference. Afterwards attempted to meet with patient's spouse to update him on the change in dismissal date but he was away for the afternoon. Nursing will provide him updates on the change in discharge date when he arrives and I will follow up with him tomorrow. Addendum: Later met with patient and her spouse Kirk after he returned. Discussed changed in dismissal date to09/25. They will do therapy that day prior to discharge. She has previously done therapy with [facility] prior to hospitalization and they would like to continue with therapy there again. I discussed his contact information with Kirk. I called and spoke with Doris, air [employer] senior officer who indicated they provide both PT and OT. Patient is scheduled to follow up with Dae next week and they will reach outto him to discuss follow up appointments. Orders were faxed. Kirk will schedule follow up with her PCP. Their Shannan Sterling has arrived at their home. At time of dismissal please fax AVS facility and dismissal summary and recent therapy notes for OT and PT to [facility]. [facility] [address] [facility], [place] [address] Erika Padron, R.N. - 09/20/2021 2:48 PM CDT Shift Goals: Patient will be continent of bowel and bladder during shift Identify possible barriers to meeting goals/advancing plan of care: None End of Shift Summary: Patient was continent of bowel but had episode of incontinence during nap, andpatient's bowels continue to be softer than her norm. Patient remained safe from falls and reported no pain during shift. Problem: SAFETY ADULT Goal: Maintain a safe environment Outcome: Progressing Problem: SAFETY ADULT - RISK FOR FALL AND OR FALL INJURY Goal: Patient remains free from fall/fall injury Outcome: Progressing Problem: PAIN - ADULT Goal: PT VERBALIZES/DEMONSTRATES ADEQUATE COMFORT LEVEL OR BASELINE Outcome: Progressing Problem: KNOWLEDGE DEFICIT Goal: Patient/family/caregiver demonstrates understanding of disease process, treatment plan, medications, and discharge instructions Outcome: Progressing Problem: INFECTION - ADULT Goal: Absence of infection during hospitalization Outcome: Progressing Problem: SKIN/TISSUE INTEGRITY Goal: Skin/Tissue integrity maintained or improved Outcome: Progressing Goal: Oral and Nasal mucous membranes remain intact Outcome: Progressing Problem: SAFETY ADULT Goal: Maintain a safe environment Outcome: Progressing Problem: DISCHARGE PLANNING Goal: Patient discharge needs identified Outcome: Progressing Problem: POTENTIAL OR ACTUAL PRESSURE INJURY-ADULT Goal: Manage sensory Perception deficits to maintain and/or improve skin integrity Outcome: Progressing Goal: Maintain optimal skin moisture to ensure or improve skin integrity Outcome: Progressing Goal: Achieve optimal activity and/or mobility to maintain or improve skin integrity Outcome: Progressing Goal: Nutrient intake appropriate for improving, restoring or maintaining skin integrity Outcome: Progressing Goal: Minimize friction and/or shear to maintain or improve skin integrity Outcome: Progressing Problem: Compromised Skin Integrity Goal: Skin/Tissue integrity maintained or improved Outcome: Progressing Goal: Incisions, wounds, or drain sites healing without S/S of infection Outcome: Progressing Goal: Oral and Nasal mucous membranes remain intact Outcome: Progressing Problem: Incontinence and/or Moisture Goal: Skin integrity is maintained or improved Outcome: Progressing Problem: MUSCULOSKELETAL - ADULT Goal: Return mobility to safest level of function Outcome: Progressing Goal: Maintain proper alignment of affected body part Outcome: Progressing Goal: Optimize ADL status Outcome: Progressing Erika Padron R.N. - 09/19/2021 3:01 PM CDT Shift Goals: Patient will stay safe from falls during shift. Identify possible barriers to meeting goals/advancing plan of care: None End of Shift Summary: Patient was continent of bowel and bladder during shift, however patient's stated that she was trying to manual distract stool while sitting on the commode. Patient remained safe from falls and reported no pain. Hardy Mcfadden RJoey - 09/18/2021 5:56 PM CDT Shift Goals: Clinical Goals for the Shift: Patient will verbalize pain during the shift. Identify possible barriers to meeting goals/advancing plan of care: None. End of Shift Summary: Met. Patient rated pain 0/10 during the shift. Haroldo Singh R.N. - 09/17/2021 6:07 AM CDT Shift Goals: Clinical Goals for the Shift: Sleep Identify possible barriers to meeting goals/advancing plan of care: Cognition End of Shift Summary: Slept intermittently overnight. Initially restless possibly related to toileting. Requested to be up in her chair at 0200 and have some bread. Requested to go back to bed after having her snack. iMsael Ag R.N. - 09/16/2021 6:35 AM CDT Shift Goals: Sleep and continent of urine Identify possible barriers to meeting goals/advancing plan of care: none End of Shift Summary: slept okay up a lot from 0430 on, incontinent of urine x 2 overnight even withbathrooming her every 3 to 4 hrs Jennifer Woo R.N. - 09/15/2021 10:59 PM CDT Shift Goals: Patient will have a restful evening. Identify possible barriers to meeting goals/advancing plan of care: loose stools End of Shift Summary: Patient had a large stool incontinence this evening. Standing up for the cleanup was very exhausting to the patient. Holding all bowel meds at this time. Denied pain this shift. Continuing bed alarm when not present. VSS. Will continue to monitor patient closely. Sam Barnes R.N. - 09/15/2021 2:07 PM CDT Shift Goals: Identify possible barriers to meeting goals/advancing plan of care: End of Shift Summary: Pt has had a good day. Both patient and spouse are happy that her schedule is now blocked from 1-2 PM for a rest. Is interacting more verbally with nurse and not always relying onhusband for communication. Transferring in room with [employer] device and is interested in p urchasing one for at home. No pain expressed on day shift. Carol Doe CRRN - 09/15/2021 1:10 PM CDT Attempted to meet with patient and spouse to discuss details from ITC meeting today. Discussed with patient the dismissal date remains the same (09/22). I will follow up with her and her spouse to discuss details for dismissal planning when they are both available. Jennifer Woo R.N. - 09/14/2021 10:26 PM CDT Shift Goals: Patient will have a restful evening. Identify possible barriers to meeting goals/advancing plan of care: spine surgery End of Shift Summary: Patient had a restful evening with present. Able to have a couple of BMs this shift and ate dinner up in chair. Denied pain. Continues to not use call light when not present. Will continue checks and bed alarm when not present. VSS. Nancy Ramirez RMyeshaN. - 09/12/2021 2:23 PM CDT Shift Goals: Clinical Goals for the Shift: patient will be up in chair for all three meals Identify possible barriers to meeting goals/advancing plan of care: weakness End of Shift Summary: Patient up in chair for meals, vitals remain stable, no complaints of pain. Patient participated in therapy. Up with 2 and shannan sterling, is a great help with transfers and cares! Nursing will continue to monitor. Problem: SAFETY ADULT Goal: Maintain a safe environment Outcome: Progressing Note: Patient allows staff to use appropriate assistive devices for transfers to maintain safety. Problem: SAFETY ADULT - RISK FOR FALL AND OR FALL INJURY Goal: Patient remains free from fall/fall injury Outcome: Progressing Note: Remains free from falls. Problem: KNOWLEDGE DEFICIT Goal: Patient/family/caregiver demonstrates understanding of disease process, treatment plan, medications, and discharge instructions Outcome: Progressing Note: Patients actively involved in patients care and what her goals are moving forward. Problem: POTENTIAL OR ACTUAL PRESSURE INJURY-ADULT Goal: Achieve optimal activity and/or mobility to maintain or improve skin integrity Outcome: Progressing Note: Patient up in chair for meals. Worked with therapy today. Goal: Nutrient intake appropriate for improving, restoring or maintaining skin integrity Outcome: Progressing Elaine Hill R.N. - 09/11/2021 10:40 PM CDT Shift Goals: Increase independence with ADLs/mobility Identify possible barriers to meeting goals/advancing plan of care: lack of safety awareness, urinary incontinence End of Shift Summary: present throughout evening and he assisted patient to commode once andshe was able to have large bowel movement on own. She requires some set up and assistance with meals. No complaints of pain. Back incision clean and aries intact. Patient was later assisted to commode additional time and patient manually extracted a small piece of stool on her own. Patient incontinent of urine; wears absorbant brief. Petar Chase RJoey - 09/09/2021 6:14 AM CDT Shift Goals: Clinical Goals for the Shift: Restful night of sleep Identify possible barriers to meeting goals/advancing plan of care: restless End of Shift Summary: Patient safe and free from fall and injury. Patient did not use call light during the night but appeared restless. Patient calling out for and sitting up at edge of bed during the night multiple times. Patient incontinent of urine during the night. Urine very foul in odor. Patient alert and oriented to self, disoriented to place and time. Patient denies pain. Vital signsstable. BP (!) 152/91 (BP Location: Left arm;Upper, Patient Position: Sitting) Pulse 104 Temp 36.9 ??C (Oral) Resp 16 Ht 172.2 cm Wt 67.7 kg SpO2 96% BMI 22.83 kg/m?? Electronically signed by: Petar Chase R.N. 09/09/21 6:17 AM CDT Carol Doe CRRN - 09/08/2021 12:53 PM CDT Met with patient and spouse and introduced myself and my role as a Rehabilitation Nurse Coordinator.Introduced interdisciplinary team plan of care and plan of care review meetings and discharge planning rounds. Discharge planning rounds will occur on Wednesdays and Fridays between [id number]. They declined to have an selling underwriter present. I reviewed progress with therapy and tentative dismissal date of 09/22 to home with assistance. Kirk has been providing assistance and plans to continue after they return home. Discussed with them that I will assist with coordinating primary care follow up and outpat ient therapy closer to the dismissal date. Patient has previously been followed by PMR and was a patient on the rehab unit 26 years ago. They are grateful for her care that she received then as well asthe care she is currently receiving. Will follow up with them again tomorrow during rounds. Elaine Hill RJoey - 09/07/2021 7:50 AM CDT Shift Goals: Adequate sleep Identify possible barriers to meeting goals/advancing plan of care: impulsivity, lack of safety awareness, incontinence (bowel & bladder) End of Shift Summary: Patient was restless several times overnight. She set bed alarm off multiple times and dangled at edge of bed. Staff assisted her to commode twice overnight. Patient manually extracted stool by herself twice and had moderate soft results each time. Additional episode of liquid incontinent stool in pad/chux before the second attempt to commode. No complaints of pain. Shanita Durant R.N. - 09/06/2021 2:26 PM CDT Shift Goals: Problem: SAFETY ADULT Goal: Maintain a safe environment Outcome: Progressing Problem: SAFETY ADULT - RISK FOR FALL AND OR FALL INJURY Goal: Patient remains free from fall/fall injury Outcome: Progressing Problem: PAIN - ADULT Goal: PT VERBALIZES/DEMONSTRATES ADEQUATE COMFORT LEVEL OR BASELINE Outcome: Progressing Identify possible barriers to meeting goals/advancing plan of care: disease process. End of Shift Summary: See flowsheet, results review and MAR for the days events. Transfers improvingwith shannan steady and assist of 2. Sonido Mendoza R.N. - 09/05/2021 10:59 PM CDT Patient had a good evening. At 1999,during a transfer to bed with nearby, patient noted to have wheezing that was very brief. No other complaints. BP 122/71 (BP Location: Left arm;Upper, Patient Position: Lying) Pulse 82 Temp 37 ??C (Oral) Resp 20 Ht 172.2 cm SpO2 94% BMI 24.48 kg/m?? Elaine Hill R.N. - 09/05/2021 7:13 AM CDT Shift Goals: Adequate sleep Identify possible barriers to meeting goals/advancing plan of care: End of Shift Summary: RN assisted patient with turning overnight. No complaints of pain. No episodesof seizure activity; patient was responding to questions appropriately. Shanita Durant R.N. - 09/04/2021 10:40 PM CDT Shift Goals: Problem: SAFETY ADULT Goal: Maintain a safe environment Outcome: Progressing Problem: SAFETY ADULT - RISK FOR FALL AND OR FALL INJURY Goal: Patient remains free from fall/fall injury Outcome: Progressing Problem: PAIN - ADULT Goal: PT VERBALIZES/DEMONSTRATES ADEQUATE COMFORT LEVEL OR BASELINE Outcome: Progressing Problem: SKIN/TISSUE INTEGRITY Goal: Skin/Tissue integrity maintained or improved Outcome: Progressing Goal: Oral and Nasal mucous membranes remain intact Outcome: Progressing Problem: POTENTIAL OR ACTUAL PRESSURE INJURY-ADULT Goal: Manage sensory Perception deficits to maintain and/or improve skin integrity Outcome: Progressing Goal: Maintain optimal skin moisture to ensure or improve skin integrity Outcome: Progressing Goal: Achieve optimal activity and/or mobility to maintain or improve skin integrity Outcome: Progressing Goal: Nutrient intake appropriate for improving, restoring or maintaining skin integrity Outcome: Progressing Goal: Minimize friction and/or shear to maintain or improve skin integrity Outcome: Progressing Identify possible barriers to meeting goals/advancing plan of care: disease process. End of Shift Summary: patient transferred onto unit this shift. Admission process discussed and reviewed and tour of unit and explanation of unit routines given to patient and 's satisfaction. She did have and episode that the thought might be the beginning of seizure activity. He wasvery concerned and the team was notified and came to bedside to assess. See orders for plan. Husbandstates that after a good nap and as the evening progressed, the patient is now back to her normal self and he has not concern for seizure activity at the time he left for the evening. We do have seizure precautions in place and a rescue med ordered should the situation arise. documented in this encounter Miscellaneous Notes Hospital Course - Niyah Early M.D. - 09/04/2021 4:50 PM CDT PRE-REHABILITATION COURSE: Mrs. Aurora Langley is a 76-year-old right-handed, [place]-speaking woman with past medical history of TBI with residual posttraumatic epilepsy, right spastic hemiparesis and expressive aphasia status post [employer] shunt placement in 1995 and lumbar spinal stenosis s/p L2-L5 lumbar laminectomy on August. Since her TBI in 1995, she has been ambulatory with use of a right AFO and assistance from her . Over the last 5-8 years, she has experienced slow decline in ambulation. She had not regained meaningful function in her right upper extremity after her TBI. Over the past several years, she also developed worsening symptoms suggestive of lumbar pseudoclaudication. MRI lumbar spine (07/22/21) revealed lumbar spondylosis resulting in severe central canal stenosis from L2-L5. She was evaluated in the outpatient neurosurgery clinic by Dr. Castellon who recommended lumbar decompression laminectomy. She was admitted to [facility] on September 02 for planned lumbar decompression laminectomy. She had indwelling urinary catheter and lumbar drain removed on 09/03. On 09/04, her expressed concern that she is demonstrating worsening aphasia and cognition as well as not attending to things on her right side. Head CT was obtained and was negative for any acute processes. At baseline, she was requiring minimal assistance with transfers, stairs and ADLs from her . Patient's goal is to dismiss home with . They live in [place], [place] in a handicap-accessible home. She has bathroom equipment and uses a wheelchair within her home for mobility. Her works as a professor. Her will be available to provide assistance as needed following dismissal. PMR was consulted and evaluated the patient while on the acute hospital floor. Patient was requiring max assistance with transfers, ambulation of 1 meter with a two-wheel walker and max assistance, max assistance with lower body dressing and supervision assistance with grooming. She was determined to be an appropriate candidate for acute inpatient rehabilitation for lower extremity weakness and impairments in gait and ADLs. REHABILITATION COURSE: Mrs. Langley was admitted to the inpatient brain rehabilitation service on September 04, 2021. The following items were addressed during her stay: # Lumbar spinal stenosis with neurogenic claudication status post L2-L5 laminectomy on September 02, 2021 # Progressive lower limb weakness # Gait unsteadiness # History of TBI resulting in spastic right hemiparesis, posttraumatic epilepsy and expressive aphasia Mrs. Langley was an active participant with her rehabilitation team, including physical and occupational therapy. Both disciplines were recommended to continue in the outpatient setting and prescriptions were provided and faxed for this. Family elected to schedule at their convenience. Activity restrictions including a 15-20 pound lifting restriction and no heavy lifting, twisting or bending for 6 weeks post operatively which will be October 14. Her pain was well controlled with 1000 mg of Tylenol, every 6 hours as needed. No neurosurgery follow up is indicated per discussion with Dr. Castellon's service. She has outpatient physiatry follow up scheduled with Dr. Ross on October 21. She was continued on her home anti-epileptic regimen including carbamazepine 500 mg twice daily, levetiracetam 500 mg every morning, 250 mg with lunch, 500 mg every evening, and folic acid 1,000 mcg daily. There was some concern on day of admission as to whether or not she was have a seizure, for which the neurology consult service was contacted. Fortunately, her opioid pain medications and muscle relaxants were discontinued and her mental status improved significantly. # Hyperlipidemia Mrs. Langley was continued on her home atorvastatin 10 mg every other day and aspirin 81 mg daily. DISCHARGE PHYSICAL EXAM: Temperature: [36.5 ??C-36.8 ??C] 36.5 ??C Resp Rate: [15-16] 16 Blood Pressure: (121-139)/(64-93) 121/64 SpO2: [95 %-98 %] 98 % Pulse Rate: [67-87] 67 General: alert and oriented to self, place, spouse and situation; in no acute distress; arranging herself to get comfortable in bed for afternoon rest. HEENT: Normocephalic, atraumatic. Oral cavity and tongue are unremarkable. Sclera anicteric, conjunctiva clear. Mucus membranes moist. Trachea midline. Heart: Extremities warm and well perfused. Radial pulses strong bilaterally. No lower extremity edema. Lungs: Clear to auscultation bilaterally. No dyspnea. Breathing comfortably on room air. Symmetric chest rise. Abdomen: Soft, non-tender, nondistended. Bowel sounds present. Extremities: No swelling or erythema. No calf tenderness. Right knee brace and right AFO. Skin: Exposed areas of skin are clean, dry and intact with no evidence of cellulitis, pressure ulcers, or necrosis. Neurologic Exam: MENTAL STATUS: Fully oriented with appropriate mood and affect. CRANIAL NERVES: No acute focal cranial nerve deficits. LANGUAGE/SPEECH: Limited verbal responses in [place], uses assistance for translation. Responds appropriately to yes/no questions. Comprehends spoken commands to participate in exam. MUSCLE STRENGTH: Right upper extremity plegia secondary to traumatic brain injury in 1995 with residual weakness of the right lower extremity, however antigravity strength here is preserved. Full strength in left upper and lower extremities. Maintains right upper extremity in a flexed posture at her side. MUSCLE REFLEXES (scale: -4=absent, 0=normal, +4=sustained clonus; right/left): Biceps 0/0, Brachioradialis 0/0, Triceps 0/0, Patellar tendon 0/0 GAIT: Normal sitting balance. Transfers with assist of one and use of Shannan Steady safely. Requires minimal assistance for bed mobility. COORDINATION: Normal coordination with left upper extremity. SENSATION: Normal light touch sensation throughout upper and lower limbs. documented in this encounter Plan of Treatment Scheduled Referrals Name Type Priority Associated Order Schedule Diagnoses Physical Medicine and Outpatient Referral Routine Expected: Rehabilitation office 2021 visit (clinic) (Approximate) , Expires: 12/15/2022 External referral PT Outpatient Referral Routine Lack Of Ordered: (non-Ty) Coordination 09/21/2021 Decline Functional Status Imbalance Non Orthopedic Weakness General Unsteadiness Gait Disorder Non Orthopedic Stenosis Spinal Lumbar With Neurogenic Claudication Stenosis Spinal External referral OT Outpatient Referral Routine Lack Of Ordered: (non-Ty) Coordination 09/21/2021 Decline Functional Status Imbalance Non Orthopedic Weakness General Unsteadiness Gait Disorder Non Orthopedic documented as of this encounter Procedures Procedure Name Priority Date/Time Associated Comments Diagnosis CBC WITHOUT Routine 09/10/2021 9:05 Results for DIFFERENTIAL, B AM CDT this procedu re are in the results section. CBC WITH Routine 09/07/2021 6:25 Results for DIFFERENTIAL, B AM CDT this procedu re are in the results section. DIPSTICK, U Routine 09/06/2021 10:44 Results for AM CDT this procedure are in the results section. MICROSCOPIC Routine 09/06/2021 10:44 Results for AUTOMATED AM CDT this procedure are in the results section. BACTERIAL CULTURE, Routine 09/06/2021 10:44 Resul ts for AEROBIC + SUSC, AM CDT this procedu re URINE are in the results section. PH, U Routine 09/06/2021 10:44 Results for AM CDT this procedure are in the results section. OSMOLALITY, U Routine 09/06/2021 10:44 Results fo r AM CDT this procedure are in the results section. URINALYSIS WITH Routine 09/06/2021 10:44 Results for MICROSCOPIC AM CDT this procedure are in the results section. DX CHEST PORTABLE 1 RAD - Semiurgent 09/06/2021 9:12 R esults for VIEW (Fast; most ED AM CDT this procedur e patients; some are in the inpatients) results section. CBC WITH Routine 09/06/2021 5:56 Results for DIFFERENTIAL, B AM CDT this procedu re are in the results section. LEVETIRACETAM LEVEL, Timed 09/05/2021 5:07 Resu lts for S AM CDT this procedure are in the results section. CBC WITH Routine 09/05/2021 5:07 Results for DIFFERENTIAL, B AM CDT this procedu re are in the results section. CARBAMAZEPINE LEVEL, Timed 09/05/2021 5:07 Resu lts for TOT, S AM CDT this procedure are in the results section. BASIC METABOLIC Timed 09/05/2021 5:07 Results f or PANEL, S/P AM CDT this procedure are in the results section. documented in this encounter Results (ABNORMAL) CBC without Differential (09/10/2021 9:05 AM CDT) [facility] gist Method Time Signature Hemoglobin 11.0 (L) 11.6 - 09/10/2021 DTL 15.0 g/dL 9:33 AM CDT Hematocrit 32.6 (L) 35.5 - 09/10/2021 DTL 44.9 % 9:33 AM CDT Erythrocytes 3.16 (L) 3.92 - 09/10/2021 DTL 5.13 9:33 AM CDT x10(12)/L MCV 103.2 (H) 78.2 - 09/10/2021 DTL 97.9 fL 9:33 AM CDT RBC Distrib Width 14.3 12.2 - 09/10/2021 DTL 16.1 % 9:33 AM CDT Platelet Count 429 (H) 157 - 371 09/10/2021 DTL x10(9)/L 9:33 AM CDT Leukocytes 7.1 3.4 - 9.6 09/10/2021 DTL x10(9)/L 9:33 AM CDT Specimen Anatomical Collection Method Collection Time Receive d Time (Source) Location / / Volume Laterality Blood (Blood, 09/10/2021 9:05 AM 09/11/19 9:24 Venous) CDT AM CDT Niyah Early M.D. LAB BLOOD ADD-ON Performing Organization Address City/State/ZIP Code Phon e Number [facility] - [address] [place], [place] [address] [facility] [place] [address] [facility] [address] (ABNORMAL) CBC with Differential, Blood (09/07/2021 6:25 AM CDT) [facility] Method Time Signature Hemoglobin 9.6 (L) 11.6 - 09/07/2021 DTL 15.0 g/dL 7:34 AM CDT Hematocrit 29.6 (L) 35.5 - 09/07/2021 DTL 44.9 % 7:34 AM CDT Erythrocytes 2.82 (L) 3.92 - 09/07/2021 DTL 5.13 7:34 AM CDT x10(12)/L MCV 105.0 (H) 78.2 - 09/07/2021 DTL 97.9 fL 7:34 AM CDT RBC Distrib Width 14.0 12.2 - 09/07/2021 DTL 16.1 % 7:34 AM CDT Platelet Count 265 157 - 371 09/07/2021 DTL x10(9)/L 7:34 AM CDT Leukocytes 8.6 3.4 - 9.6 09/07/2021 DTL x10(9)/L 7:34 AM CDT Neutrophils 6.70 (H) 1.56 - 09/07/2021 DTL 6.45 7:34 AM CDT x10(9)/L Lymphocytes 1.01 0.95 - 09/07/2021 DTL 3.07 7:34 AM CDT x10(9)/L Monocytes 0.77 0.26 - 09/07/2021 DTL 0.81 7:34 AM CDT x10(9)/L Eosinophils 0.08 0.03 - 09/07/2021 DTL 0.48 7:34 AM CDT x10(9)/L Basophils 0.03 0.01 - 09/07/2021 DTL 0.08 7:34 AM CDT x10(9)/L Specimen Anatomical Collection Method Collection Time Receive d Time (Source) Location / / Volume Laterality Blood (Blood, 09/07/2021 6:25 AM 09/08/19 22 7:18 Venous) CDT AM CDT Lisa Maki D.O. LAB BLOOD ADD-ON Performing Organization Address City/[facility]/ZIP Code Phon e Number [facility] - [address] [place], [place] [address] [facility] [place], [place] [id number] [place] [address] [address] [place] pH, Urine (09/06/2021 10:44 AM CDT) athologist Signature pH, U 5.7 4.5 - 8.0 09/06/2021 11:20 DTL AM CDT Specimen Anatomical Collection Method Collection Time Receive d Time (Source) Location / / Volume Laterality Urine 09/06/2021 10:44 09/06/2021 AM CDT 11:11 AM CDT Lisa Maki D.O. LAB URINE ORDERABLES Performing Organization Address City/[facility]/ZIP [facility] Phon e Number [facility] - [address] [place], [place] [address] [place] [address] Osmolality, Urine (09/06/2021 10:44 AM CDT) athologist Signature Osmolality, U 651 150 - 1150 09/06/2021 DT mOsm/kg 11:20 AM CDT Specimen Anatomical Collection Method Collection Time Receive d Time (Source) Location / / Volume Laterality Urine 09/06/2021 10:44 09/06/2021 AM CDT 11:11 AM CDT Lisa Maki D.O. LAB URINE ORDERABLES Performing Organization Address City/[facility]/ZIP Code Phon e Number [facility] - [address] [place], [place] [address] [facility] [place], [place] [id number] [place] [address] Microscopic Automated (09/06/2021 10:44 AM CDT) athologist Signature Microscopy Normal 09/06/2021 DTL 11:18 AM CDT RBC <3 <3 /hpf 09/06/2021 DTL 11:18 AM CDT Specimen Anatomical Collection Method Collection Time Receive d Time (Source) Location / / Volume Laterality Urine 09/06/2021 10:44 09/06/2021 AM CDT 11:11 AM CDT Lisa Maki D.O. LAB URINE ORDERABLES Performing Organization Address City/[facility]/ZIP Code Phon e Number [facility] - [address] [place] [address] Laboratories-[address] (ABNORMAL) Dipstick, Urine (09/06/2021 10:44 AM CDT) [facility] [place] Method Time Signature Hemoglobin, QL Negative Negative 09/06/2021 DTL 11:18 AM CDT Leukocyte Negative Negative 09/06/2021 DTL Esterase, U 11:18 AM CDT Nitrite, U Negative Negative 09/06/2021 DTL 11:18 AM CDT Ketones, U 40 (A) Negative 09/06/2021 DTL mg/dL 11:18 AM CDT Glucose, U Negative Negative 09/06/2021 DTL mg/dL 11:18 AM CDT Specimen Anatomical Collection Method Collection Time Receive d Time (Source) Location / / Volume Laterality Urine 09/06/2021 10:44 09/06/2021 AM CDT 11:11 AM CDT Lisa Maki D.O. LAB URINE ORDERABLES Performing Organization Address City/[facility]/ZIP Code Phon e Number [facility] - [address] [address] [facility]-[address] Bacterial Culture, Aerobic + Susc, Urine (09/06/2021 10:44 AM CDT) [facility] [place] Method Time Signature Urine Culture No growth 09/07/2021 DT after 1 day 7:58 AM CDT of incubation. Specimen Anatomical Collection Method Collection Time Receive d Time (Source) Location / / Volume Laterality Urine (Urine, 09/06/2021 10:44 09/06/2021 Straight AM CDT 11:23 AM CDT Catheter) Comment: Specimen Source Site: Urine Lisa Maki D.O. LAB MICROBIOLOGY - GENERAL O RDERABLES Performing Organization Address City/[facility]/ZIP Code Phon e Number [facility] - [address] [place], [place] [address] [place] [address], [place] [address] Laboratories-[address] (ABNORMAL) Urinalysis with Microscopic: Urine, Straight Catheter (09/06/2021 10:44 AM CDT) [facility] Method Time Signature Source Urine, 09/06/2021 DTL Urine, 11:10 AM CDT Straight Catheter Color, U Yellow 09/06/2021 DTL 11:11 AM CDT Clarity, U Clear 09/06/2021 DTL 11:11 AM CDT Protein, U 26 (H) <26 mg/dL 09/06/2021 DTL 12:00 PM CDT Protein/Osmola 0.40 <0.42 09/06/2021 DTL lity ratio 12:00 PM CDT Predicted 24 291 mg/24 h 09/06/2021 DTL Hr Protein 12:00 PM CDT Predicted 72-1177 mg/24 h 09/06/2021 DTL Range 12:00 PM CDT Specimen Anatomical Collection Method Collection Time Receive d Time (Source) Location / / Volume Laterality Urine (Urine, 09/06/2021 10:44 09/06/2021 Straight AM CDT 11:10 AM CDT Catheter) Lisa Maki D.O. LAB URINE ORDERABLES Performing Organization Address City/State/ZIP Code Phon e Number [facility] - [address] [place] [address] [place] [address] DX Chest Portable 1 View (09/06/2021 9:12 AM CDT) Anatomical Region Laterality Modality Chest, Thoracic RST LOS, Thoracic ARZ LOS, Thoracic N/A Digital Radiography FLA LOS Specimen (Source) Anatomical Collection Method Collection Time Re ceived Time Location / / Volume Laterality 09/06/2021 9:17 AM CDT Impressions 09/06/2021 9:19 AM CDT No definite change since 06/01/2016. No focal pulmonary consolidation or pleural effusion. Moderate esophageal hiatal her josselin. Right chest SK[employer] YARDER shunt tubing. Scattered pulmonary atelectasis. Aortic calcification. Narrative 09/06/2021 9:19 AM CDT EXAM: ??DX CHEST PORTABLE 1 VIEW Procedure Note Ezio Crandall M.D., Ph.D. - 03/27/202 2 EXAM: DX CHEST PORTABLE 1 VIEW IMPRESSION: No definite change since 06/01/2016. No focal pulmonary consolidation or pleural effusion. Moderate esophageal hiatal her josselin. Right chest SK[employer] LINE YARDER shunt tubing. Scattered pulmonary atelectasis. Aortic calcification. Lisa Maki D.O. IMG DIAGNOSTIC IMAGING PROCE DURES (ABNORMAL) CBC with Differential, Blood (09/06/2021 5:56 AM CDT) [facility] Method Time Signature Hemoglobin 9.9 (L) 11.6 - 09/06/2021 DTL 15.0 g/dL 6:48 AM CDT Hematocrit 29.4 (L) 35.5 - 09/06/2021 DTL 44.9 % 6:48 AM CDT Erythrocytes 2.88 (L) 3.92 - 09/06/2021 DTL 5.13 6:48 AM CDT x10(12)/L MCV 102.1 (H) 78.2 - 09/06/2021 DTL 97.9 fL 6:48 AM CDT RBC Distrib Width 14.1 12.2 - 09/06/2021 DTL 16.1 % 6:48 AM CDT Platelet Count 248 157 - 371 09/06/2021 DTL x10(9)/L 6:48 AM CDT Leukocytes 8.4 3.4 - 9.6 09/06/2021 DTL x10(9)/L 6:48 AM CDT Neutrophils 6.48 (H) 1.56 - 09/06/2021 DTL 6.45 6:48 AM CDT x10(9)/L Lymphocytes 1.04 0.95 - 09/06/2021 DTL 3.07 6:48 AM CDT x10(9)/L Monocytes 0.70 0.26 - 09/06/2021 DTL 0.81 6:48 AM CDT x10(9)/L Eosinophils 0.09 0.03 - 09/06/2021 DTL 0.48 6:48 AM CDT x10(9)/L Basophils 0.04 0.01 - 09/06/2021 DTL 0.08 6:48 AM CDT x10(9)/L Specimen Anatomical Collection Method Collection Time Receive d Time (Source) Location / / Volume Laterality Blood (Blood, 09/06/2021 5:56 AM 09/07/19 6:41 Venous) CDT AM CDT Lisa Maki D.OMyesha LAB BLOOD ADD-ON Performing Organization Address City/State/ZIP Code Phon e Number [facility] - [address] [place] [address] [facility] [place] [address] [facility] [address] [place] (ABNORMAL) Basic Metabolic Panel (09/05/2021 5:07 AM CDT) P athologist Signature Potassium, S 3.8 3.6 - 5.2 09/05/2021 DTL mmol/L 5:59 AM CDT Sodium, S 140 135 - 145 09/05/2021 DTL mmol/L 5:59 AM CDT Chloride, S 106 98 - 107 09/05/2021 DTL mmol/L 5:59 AM CDT Bicarbonate, S 27 22 - 29 09/05/2021 DTL mmol/L 5:59 AM CDT Anion Gap 7 7 - 15 09/05/2021 DTL 5:59 AM CDT BUN (Blood Urea 11 6 - 21 09/05/2021 DTL Nitrogen), S mg/dL 5:59 AM CDT Creatinine 0.68 0.59 - 09/05/2021 DTL 1.04 mg/dL 5:59 AM CDT eGFR-Non 86 >=60 09/05/2021 DTL Black/ mL/min/BSA 5:59 AM CDT [place] Comment: ----ADDITIONAL INFORMATION---- Estimated GFR calculated using the 2009 CKD_EPI creatinine equation. eGFR-Black/ >90 >=60 mL/min/BSA 2021 5:59 AM CDT DTL Comment: ----ADDITIONAL INFORMATION---- Estimated GFR calculated using the 2009 CKD_EPI creatinine equation. Calcium, Total, S 8.0 (L) 8.8 - 10.2 mg/dL 09/05/2021 5:59 AM CDT DTL Glucose, S 98 70 - 140 mg/dL 09/05/2021 5:59 AM CDT D TL Specimen Anatomical Collection Method Collection Time Receive d Time (Source) Location / / Volume Laterality Blood (Blood, 09/05/2021 5:07 AM 09/06/19 22 5:43 Venous) CDT AM CDT Lisa Maki D.O. LAB BLOOD ADD-ON Performing Organization Address City/[facility]/ZIP [facility] Phon e Number [facility] - [address] [place], [place] [address] [facility] [place] [address] [facility] [address] (ABNORMAL) Levetiracetam Level (09/05/2021 5:07 AM CDT) athologist Signature Levetiracetam, 9.4 (L) 10.0 - 09/05/2021 [facility] S 40.0 12:12 PM CDT mcg/mL Comment: ----ADDITIONAL INFORMATION---- This test was developed and its performa nce characteristics determined by [facility] in a manner consistent with CLIA requirements. This test has not been cleared or approved by the U.[place] d and Drug Administration. Specimen Anatomical Collection Method Collection Time Receive d Time (Source) Location / / Volume Laterality Blood (Blood, 09/05/2021 5:07 AM 09/06/19 22 8:33 Venous) CDT AM CDT Lisa Maki D.O. LAB BLOOD NON ADD-ON Performing Organization Address City/[facility] Phon e Number [facility] [address] [place], [place] [address] [facility] [place] [address] Laboratory Medicine and Pathology [address] [place] (ABNORMAL) Carbamazepine, Total (09/05/2021 5:07 AM CDT) athologist Signature Carbamazepine, 13.3 (H) 4.0 - 12.0 09/05/2021 DT Tot, S mcg/mL 6:15 AM CDT Specimen Anatomical Collection Method Collection Time Receive d Time (Source) Location / / Volume Laterality Blood (Blood, 09/05/2021 5:07 AM 09/06/19 22 5:26 Venous) CDT AM CDT Lisa P Glynn D.O. LAB BLOOD ADD-ON Performing Organization Address City/State/ZIP Code Phon e Number [facility] - [address] [place], [place] [address] [facility] [place] [address] [facility] [address] (ABNORMAL) CBC with Differential, Blood (09/05/2021 5:07 AM CDT) [facility] Method Time Signature Hemoglobin 9.2 (L) 11.6 - 09/05/2021 DTL 15.0 g/dL 5:41 AM CDT Hematocrit 27.5 (L) 35.5 - 09/05/2021 DTL 44.9 % 5:41 AM CDT Erythrocytes 2.65 (L) 3.92 - 09/05/2021 DTL 5.13 5:41 AM CDT x10(12)/L MCV 103.8 (H) 78.2 - 09/05/2021 DTL 97.9 fL 5:41 AM CDT RBC Distrib Width 14.0 12.2 - 09/05/2021 DTL 16.1 % 5:41 AM CDT Platelet Count 202 157 - 371 09/05/2021 DTL x10(9)/L 5:41 AM CDT Leukocytes 8.5 3.4 - 9.6 09/05/2021 DTL x10(9)/L 5:41 AM CDT Neutrophils 5.87 1.56 - 09/05/2021 DTL 6.45 5:41 AM CDT x10(9)/L Lymphocytes 1.52 0.95 - 09/05/2021 DTL 3.07 5:41 AM CDT x10(9)/L Monocytes 0.92 (H) 0.26 - 09/05/2021 DTL 0.81 5:41 AM CDT x10(9)/L Eosinophils 0.10 0.03 - 09/05/2021 DTL 0.48 5:41 AM CDT x10(9)/L Basophils 0.04 0.01 - 09/05/2021 DTL 0.08 5:41 AM CDT x10(9)/L Specimen Anatomical Collection Method Collection Time Receive d Time (Source) Location / / Volume Laterality Blood (Blood, 09/05/2021 5:07 AM 09/06/19 22 5:32 Venous) CDT AM CDT Lisa StallworthOMyesha LAB BLOOD ADD-ON Performing Organization Address City/State/ZIP Code Phon e Number [facility] - [address] [place], [place] [address] [facility] [place] [address] [facility] [address] documented in this encounter Visit Diagnoses Diagnosis Laminectomy Lumbar Status Post - Primary Lack Of Coordination Decline Functional Status Imbalance Non Orthopedic Weakness General Unsteadiness 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 Hand Joint Right Focal Complex Partial Epilepsy Intractab le With Status Epilepticus (HCC) Injury Intracranial Brain Sequela (HCC) Aphasia Expressive documented in this encounter Administered Medications Inactive Administered Medications - up to 3 most recent administrations Medication Order MAR Action Action Date Dose Rate Site acetaminophen tablet 1,000 mg Given 09/07/2021 8:20 AM CDT 1,000 mg (TYLENOL) 1,000 mg, oral, 4 times daily, First dose (after last modification) on Tue09/04/21 at 1700, If patient tolerating oral fluids or has a gastric tube, discontinue injectable opioid and begin this order Given 09/06/2021 5:53 PM CDT 1,000 mg Given 09/06/2021 12:02 PM CDT 1,000 mg acetaminophen tablet 1,000 mg (TYLENOL) Given 09/09/2021 12:50 PM CDT 1,000 mg 1,000 mg, oral, Every 6 hours PRN, mild pain or score 1-3 of 10, moderate pain or score 4-6 of 10, headaches, Starting on Tue09/07/21 at 0815 Given 09/09/2021 6:52 AM CDT 1,000 mg Given 09/08/2021 5:02 PM CDT 1,[address] tablet 81 mg Given 09/24/2021 6:12 PM CDT 81 mg 81 mg, oral, Every morning, First dose (after last modification) on Tue09/05/21 at 1800, Swallow whole. Do NOT crush, chew, or split tablet. Given 09/23/2021 6:25 PM CDT 81 mg Given 09/22/2021 5:44 PM CDT 81 mg atorvastatin tablet 10 mg (LIPITOR) Given 09/24/2021 6:12 PM CDT 10 mg 10 mg, oral, Every 48 hours, First dose (after last modification) on Tue09/04/21 at 1800 Given 09/22/2021 5:44 PM CDT 10 mg Given 09/20/2021 5:10 PM CDT 10 mg carBAMazepine 12 hr capsule 100 mg Given 09/25/2021 5:38 AM CDT 100 mg (CARBATROL) 100 mg, oral, 2 times daily, First dose (after last modification) on Tue09/04/21 at 1800, Do NOT crush or chew. Capsule may be opened and the contents taken without crushing or chewing. Given 09/24/2021 6:11 PM CDT 100 mg Given 09/24/2021 6:07 AM CDT 100 mg carBAMazepine 12 hr capsule 400 mg Given 09/25/2021 5:39 AM CDT 400 mg (CARBATROL) 400 mg, oral, 2 times daily, First dose (after last modification) on Tue09/04/21 at 1800, Do NOT crush or chew. Capsule may be opened and the contents taken without crushing or chewing. Given 09/24/2021 6:12 PM CDT 400 mg Given 09/24/2021 6:07 AM CDT 400 mg diazePAM concentrated solution 5 mg (KANDACE IUM) 5 mg, oral, 2 times daily PRN, seizures, to be given only if having seizure-like activity for >5 minutes (one eye closed, face-glossing over, right eyelid twitching, and NOT responding or following commands). Can be given 2x if not responsive to 1st dose. Do not exceed 10 mg total, Starting on Tue09/05/21 at 1614, to be given only if having seizure-like activity for >5 minutes (one eye closed, face-glossing over, right eyelid twitching, and NOT re sponding or following commands, Restriction Criteria (Pharmacy will review and approve if criteria met): After hours OR urgent first dose enoxaparin injection 40 mg Given 09/25/2021 8:04 AM CDT 40 mg Left Upper Abdomen (LOVENOX) 40 mg, subcutaneous, Every 24 hours scheduled, First dose on Tue09/05/21 at 0900 Given 09/24/2021 8:02 AM CDT 40 mg Left Lower Abdomen Given 09/23/2021 9:11 AM CDT 40 mg Right Lower Abdomen folic acid tablet 1,000 mcg Given 09/25/2021 5:39 AM CDT 1,000 mcg 1,000 mcg, oral, Daily, First dose (after last modification) on Tue09/05/21 at 0600 Given 09/24/2021 6:07 AM CDT 1,000 mcg Given 09/23/2021 6:22 AM CDT 1,000 mcg heparin (porcine) Given 09/04/2021 10:10 PM 5,000 Units Right Upper injection 5,000 Units CDT Abdomen 5,000 Units, subcutaneous, Every 8 hours scheduled, First dose (after last modification) on Tue09/04/21 at 2200, For 1 dose levETIRAcetam tablet 250 mg (KEPPRA) Given 09/25/2021 11:35 AM CDT 250 mg 250 mg, oral, Daily, First dose (after last modification) on Tue09/05/21 at 1200 Given 09/24/2021 11:58 AM CDT 250 mg Given 09/23/2021 12:05 PM CDT 250 mg levETIRAcetam tablet 500 mg (KEPPRA) Given 09/25/2021 5:38 AM CDT 500 mg 500 mg, oral, 2 times daily, First dose (after last modification) on Tue09/04/21 at 1800 Given 09/24/2021 6:38 PM CDT 500 mg Given 09/24/2021 6:07 AM CDT 500 mg polyethylene glycol powder packet 17 g Given 09/15/2021 6:48 AM CDT 17 g (MIRALAX) 17 g, oral, Daily, First dose (after last modification) on Tue09/05/21 at 0600, Ordered sequence of administration: polyethylene glycol, then bisacodyl until BM achieved. Avoid mixing with starch-based thickened liquids. Given 09/14/2021 5:48 AM CDT 17 g Given 09/13/2021 6:25 AM CDT 17 g psyllium (with aspartame) packet 1 packet Given 09/20/2021 8 :00 AM CDT 1 packet (METAMUCIL) 1 packet, oral, 3 times daily, First dose on Tue09/19/21 at 1400 Given 09/19/2021 9:06 PM CDT 1 packet Given 09/19/2021 2:18 PM CDT 1 packet psyllium (with aspartame) packet 1 packet Given 09/25/2021 8 :04 AM CDT 1 packet (METAMUCIL) 1 packet, oral, Daily, First dose (after last modification) on 09/21/21 at 0900 Given 09/24/2021 8:02 AM CDT 1 packet Given 09/23/2021 9:11 AM CDT 1 packet sennosides tablet 17.2 mg (SENOKOT) Given 09/14/2021 12:13 PM CDT 17.2 mg 17.2 mg, oral, Daily with lunch, First dose on 09/05/21 at 1200 Given 09/13/2021 11:22 AM CDT 17.2 mg Given 09/12/2021 12:13 PM CDT 17.2 mg documented in this encounter Active and Recently Administered Medications Times are shown in CDT. Scheduled Medication Order 09/23/2021 09/24/2021 09/25/[address] tablet 81 mg 1824 (Given - Provider: Niyah adame, R.N.) 1811 (Given - Provider: Niyah Callaway R.N.) 81 mg, oral, Every morning, First dose ( after last modification) on 09/05/21 at 1800, Swallow whole. Do NOT crush, chew, or split tablet. atorvastatin tablet 10 mg (LIPITOR) 1811 (Given - Provider: Niyah Callaway R.NMyesha) 10 mg, oral, Every 48 hours, First dose (after last modification) on Tue09/04/21 at 1800 carBAMazepine 12 hr capsule 100 mg (CARBATROL) 0621 (Sol camen - Provider: Haroldo Singh R.N.)1824 (Given - Provider: Niyah Callaway RyMeshaN.) 0607 (Given - Provider: Ana Menendez R.N.)181 (Given - Provider: Niyah Callaway R.N.) 0538 (Given - Provider: Minerva Sin R.N.) 100 mg, oral, 2 times daily, First dose (after last modification) on Tue09/04/21 at 1800, Do NOT crush or chew. Capsule may be opened and the contents taken without crushing or chewing. carBAMazepine 12 hr capsule 400 mg (CARBATROL) 0622 (G iven - Provider: Haroldo Singh RMyeshaNMyesha)1826 (Given - Provider: Niyah Callaway RMyeshaN.) 0607 (Given - Provider: Ana Menendez R.N.)1812 (Given - Provider: Niyah Callaway RMyeshaNMyesha) 0539 (Given - Provider: iMnerva Sin R.N.) 400 mg, oral, 2 times daily, First dose (after last modification) on Tue09/04/21 at 1800, Do NOT crush or chew. Capsule may be opened and the contents taken without crushing or chewing. enoxaparin injection 40 mg (LOVENOX) 0911 (Given - Pro vider: Elaine Hill RMyeshaN.) 0802 (Given - Provider: Elaine Hill R.N.) 0804 ( Given - Provider: Ita Cruz R.N., ANARN) 40 mg, subcutaneous, Every 24 hours sche duled, First dose on 09/05/21 at 0900 folic acid tablet 1,000 mcg 0622 (Given - Provider: Haroldo Singh RMyeshaNMyesha) 06 (Given - Provider: Ana Menendez RMyeshaNMyesha) 0539 (Given - Provider: Minerva Sin RMyeshaNMyesha) 1,000 mcg, oral, Daily, First dose (afte r last modification) on 09/05/21 at 0600 levETIRAcetam tablet 250 mg (KEPPRA) 1205 (Given - Pro vider: Elaine Hill R.N.) 1158 (Given - Provider: Elaine Hill R.N.) 1135 ( Given - Provider: Ita Cruz R.N., CRRN) 250 mg, oral, Daily, First dose (after l ast modification) on 09/05/21 at 1200 levETIRAcetam tablet 500 mg (KEPPRA) 0622 (Given - Pro vider: Haroldo Singh RMyeshaN.)1825 (Given - Provider: Niyah Callaway R.N.) 0607 (Given - Provider: Ana Menendez RMyeshaNMyesha)1838 (Given - Provider: Niyah Callaway RJoey) 0538 (Given - Provider: Minerva Sin R.N.) 500 mg, oral, 2 times daily, First dose (after last modification) on Tue09/04/21 at 1800 psyllium (with aspartame) packet 1 packet (METAMUCIL) 0911 (Given - Provider: Elaine Hill RFaiza.) 0802 (Given - Provider: Elaine Hill RMyeshaN.) 0804 (Given - Provider: Ita Cruz R.N., CRRN) 1 packet, oral, Daily, First dose (after last modification) on Tue09/21/21 at 0900 PRN Medication Order 09/23/2021 09/24/2021 09/25/2021 acetaminophen tablet 1,000 mg (TYLENOL) 1,000 mg, oral, Every 6 hours PRN, mild pain or score 1-3 of 10, moderate pain or score 4-6 of 10, headaches, Starting on Tue09/07/21 at 0815 diazePAM concentrated solution 5 mg (VALIUM) 5 mg, oral, 2 times daily PRN, seizures, to be given only if having seizure-like activity for >5 minutes (one eye closed, face-glossing over, right eyelid twitching, and NOT responding or following c ommands). Can be given 2x if not respons fernando to 1st dose. Do not exceed 10 mg total, Starting on 09/05/21 at 1614, to be given only if having seizure-like activity for >5 minutes (one eye closed, f hieu-glossing over, right eyelid twitchin g, and NOT responding or following commands, Restriction Criteria (Pharmacy will review and approve if criteria met): After hours OR urgent first dose melatonin tablet 3 mg 3 mg, oral, Bedtime PRN, sleep, Starting on Tue09/04/21 at 1512 documented in this encounter Care Teams Talent Buyer Relationship Specialty Start Date End Date Elsewhere, Pcp PCP - General Internal Medicine 09/02/21 documented as of this encounter
--- OUTSIDE RECORDS SUMMARY | 2022-02-18 10:50 | XMS_ITS | Encounter Summary ---
:1945 Author Organization [facility] Address [address] [place] [id number] Care Team Providers Name Role Phone Elsewhere, Pcp Primary Care Provider Unavailable Encounter Details Date Type Department Care Team Description 09/21/2021 Orders Only Department of Physical Teddy Avendano Brain Traumatic Personal History (Primary Dx); Medicine and Maame Doyle, Ph.D. Stenosis Spinal Lumbar With Neurogenic C laudication Rehabilitation in [address] [place] [address] [place] [id number] [place] [address] Social History Tobacco Use Types Packs/Day Years [...] or relatives? How often do you attend sabianist or Never 2021 synagogue services? Do you belong to any clubs or No 08/26/2021 organizations such as sabianist groups, unions, fraternal or athletic groups, or [...] place to sleep or slept in a chcf (including now)? Education Answer Date Recorded What is the highest level of Professional school degree (e.g ., , 08/25/2021 school you have completed or the DDS, DVM, ROSALVA) highest degree you have received? 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
--- OUTSIDE RECORDS SUMMARY | 2022-02-18 10:50 | XMS_ITS | Encounter Summary ---
:1945 Author Organization [facility] Address [address] [place] [address] Care Team Providers Name Role Phone Elsewhere, Pcp Primary Care Provider Unavailable Reason for Visit Auth/Cert Specialty Diagnoses / Procedures Referred By Contact Refer red To Contact Diagnoses Stenosis Spinal Stenosis Spinal [M48.00] Procedures L2-L5 Lumbar laminectomy Referral ID Status Reason Start Date Expiration Date Visits Requ ested Visits Authorized [id number] 1 1 Encounter Details Date Type Department Care Team Description 09/02/2021 Anesthesia Event RST ROMB MAIN OR Brian Hearn, [address] [facility] [place] [address] [address] [place] [address] [place] [address] (Wo rk) Anesthesia Record Procedure Summary Procedure Name Responsible Anesthesia Start Anesthesia Stop Time Anesthesiologist Time L2-L5 Lumbar Brian Hearn M.D. 09/02/21 0747 09/02/21 1045 laminectomy. Events Date Time Event Comment 09/02/2021 0747 An Start Machine/Equipmen t Checked Infection Precautions Foll owed Procedure/Site Verified NPO Sta tus Verified Supine Standard ASA Mon itors Applied 0755 An Induction 0759 An Intubation 0800 Turnover to Proceduralist 0809 Frannie On 0850 Proc Start 1022 Proc Fin 1026 Turnover to ANE Staff 1032 Frannie Off 1037 Airway Removal Criteria Met 1037 Extubation/Airway Removed 1039 an stop data 1045 An End I completed my h andoff to the receiving staff during [facility] we 1. Identified the patient 2. Ident ified the responsible provider 3. Revi ewed the pertinent medical history 4. Discussed the surgical course 5. Review ed intra-op anesthesia management and i ssues during anesthesia 6. Set expectati ons for post-procedure period 7. Allowe d opportunity for questions and ac knowledgement of understanding. Name Total fentanyl injection 50 mcg/mL 100 mcg lidocaine 2% (mg) injection 100 mg propofol 10 mg/mL 100 mg rocuronium 10 mg/mL injection 100 mg phenylephrine 100 mcg/mL injection 50 mcg ondansetron 4 mg/2 mL injection 4 mg sugammadex 100 mg/mL injection 150 mg phenylephrine 80 mcg/mL in NaCl 0.9% 250 mL infusion 1 .75 mg ceFAZolin injection 2,000 mg (ANCEF) 2 g HYDROmorphone PF 2 mg/mL injection 0.8 mg dexamethasone 4 mg/mL injection 4 mg Lactated Ringers Free Drip 1,500 mL Agents No agents on file. Blood No blood administrations on file. Lines, Drains, and Airways Type Details Placement Removal Wound 09/02/21; 0952; N; 09/02/21951 by Incision; Spine; Lower, Ana Paula Holloway M, Medial M.S.N., R.N. Peripheral IV Placement Date: 09/02/21 0745 by 09/03/21336 b y 09/02/21; Placement Srinivasa Lewis III, Ka yla B, Time: 744; Catheter R.N. Size: 20 G; Orientation: Anterior, Left, Lower; Location: Forearm; Site Prep: Chlorhexidine (Preferred); Technique: Anatomical landmarks (TCL); Inserted by: JGB; Insertion Attempts: 1; Removal Date: 09/03/21; Removal Time: 336; Removal Reason: Removed by patient ETT Placement Date: 09/02/21 0759 by 09/02/21 1037 b y 09/02/21; Placement Bibiana Arrington, Bibiana Celis Time: 758 (created via REAL ESTATE AGENT, STITCH BURNISHER, MNA R, REAL ESTATE AGENT, STITCH BURNISHER, MNA procedure documentation); Mask Ventilation: Easy mask; Type: Standard ETT; Single Lumen Tube Size: 7 mm; Cuffed: Yes; Location: Oral; Grade View: Grade 1; Insertion Attempts: 1; Placement Verification: Bilateral breath sounds, Positive ETCO2, Symmetrical chest wall movement; Removal Date: 09/02/21; Removal Time: 1037 Indwelling Urinary Placement Date: 09/02/21 0807 by 09/03/21 155 1 by Catheter 09/02/21; Placement Ana Paula Holloway, Carlos Dowling, Time: 08; Inserted by: Trey, R.N. R.NMyesha Holloway; Type: Non-latex; Size: 16 Fr.; Balloon Size: 5 mL (inflated with 10 ml); Urine Returned: Yes; Removal Date: 09/03/21; Removal Time: 1551; Removal Reason: Criteria for drain removal met Closed/Suction Drain 09/02/21; 0952; 09/02/21 0952 by 09/03/21 1 800 by Inferior, Midline; Back; Ana Paula Holloway, Roxana Horn, Accordion; 10 Fr.; Per Trey, R.N. R.N. order; RN documented in this encounter Social History Tobacco Use Types Packs/Day Years [...] or relatives? How often do you attend latter day or Never 2021 faith services? Do you belong to any clubs or No 08/26/2021 organizations such as latter day groups, unions, fraternal or athletic groups, or [...] PM CDT documented as of this encounter OR Notes Anesthesia Postprocedure Evaluation - Desi Hill M.D. - 09/02/2021 11:35 AM CDT Patient: Aurora Langley Procedure Summary Date: 09/02/21 Room / Location: [place] [address] / [facility] in [place], [place] Anesthesia Start: 0747 Anesthesia Stop: 1044 Procedure: L2-L5 Lumbar laminectomy. (N/A ) Diagnosis: Stenosis Spinal (Stenosis Spinal [M48.00].) Providers: Srinivasa Castellon M.D. Responsible Provider: Brian Hearn M.D. Anesthesia Type: general ASA Status: 3 Anesthesia Type: general Last vitals Vitals Value Taken Time BP 104/63 09/02/21 1130 Temp 36.4 ??C 09/02/21 1103 Pulse 69 09/02/21 1134 Resp 11 09/02/21 1134 SpO2 93 % 09/02/21 1134 Vitals shown include unvalidated device data. Please reference Vitals flowsheet for most recent vital signs. Anesthesia Post Evaluation Patient Disposition: general care unit Cardiovascular status: hemodynamics (HR & BP) acceptable Respiratory status: patent airway with spontaneous effort Temperature: normothermic Oxygen requirements: room air Level of consciousness: awake Pain score: pain adequately controlled and/or at baseline Post Op nausea/vomiting: none Hydration status: euvolemic Comments: Alert and following commands. Moves all extremities spontaneously. Pain well-controlled. Anesthesia Procedure Notes - Bibiana Arrington, REAL ESTATE AGENT, STITCH BURNISHER, MNA - 09/02/2021 8:04 AM CDTAssociated Order(s): Airway Airway Date/Time: 09/02/2021 7:59 AM Performed by: Bibiana Arrington APRN, CRNA, MNA Authorized by: Brian Hearn M.D. Patient location during procedure: OR / Procedure Area PROCEDURE DETAILS: Mask difficulty assessment: easy mask Final airway type: video laryngoscope Laryngeal Manipulation: no Final best view of glottic structures - Cormack/Lehane Score: grade 1 ETT location: oral VL device: glide scope [place] scope blade size: 3 Adult tube size: 7 Adult ETT distance at teeth/gum: 22 Oral tube type: standard ETT Cuffed: yes Number of attempt to successful placement: 1 Airway confirmation: bilateral breath sounds, positive ETCO2 and bilateral chest rise Other previous techniques attempted: none PRE PROCEDURE DETAILS: Pre evaluation for airway management: procedure Urgency: elective Preop assessment of probable difficulty: questionable / suspicious difficult airway Preoxygenation: bag valve mask SEDATION / ANESTHESIA Anesthesia method: anesthesia POST PROCEDURE DETAILS: Procedure outcome: successful Airway event: no complications ATTESTATION STATEMENT Anesthesia Preprocedure Evaluation - Brian Hearn M.D. - 09/02/2021 7:37 AM CDT Preprocedure Anesthesia & H&P Assessment Procedure Summary Date/Time: 09/02/21 0745 Procedure: L2-L5 Lumbar laminectomy. (N/A ) Diagnosis: Stenosis Spinal [M48.00] Pre-op diagnosis: Stenosis Spinal [M48.00]. Location: [place] [address] / [facility] in [place], [place] Providers: Srinivasa Castellon M.D. Pertinent components of the patient's history including current problem list, medical history, surgical history, family history, social history, medications and allergies were reviewed. Present illnessand pre-op diagnosis were confirmed. The planned surgery / procedure was verified with the patient /legal guardian. 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) Other (+) Contracture Hand Joint Right (+) Injury Brain Traumatic Personal History (+) Injury Intracranial Brain Sequela (HCC) (+) Stenosis Spinal OBJECTIVE PHYSICAL EXAMINATION Airway (HEENT) Mallampati: III TM Distance: >3 FB Neck ROM: Full Mouth Opening: >3 cm Cardiovascular Rhythm: Regular Rate: Normal Cardiovascular Assessment: cardiovascular normal Functional Capacity: <4 METS Pulmonary Pulmonary Assessment: Non labored General / Constitutional Constitutional Assessment: Normal General State of Health:: healthy appearing and calm Neurological Neurologic Assessment:??alert and alert and oriented x 3 ASSESSMENT / PLAN ANESTHESIA PLAN ASA: 3 Anesthesia Plan: general Patient seen and allergies reviewed, anesthesia plan and risks discussed directly with patient /legal guardian or through an workforce consultant. Risks/Benefits/Alternatives of Blood transfusion discussed with patient / legal guardian, including an opportunity to ask questions and/or decline some or all transfusion therapies. The patient / legalguardian consented to the use of all blood products, as deemed medically necessary Approval to Proceed: approved for anesthesia Mostly Albanian speaking, but understands with help of . documented in this encounter Plan of Treatment Not on filedocumented as of this encounter Procedures Procedure Name Priority Date/Time Associated Comments Diagnosis LDA ANE ENDOTRACHEAL Routine 09/02/2021 7:59 AM R esults for this AIRWAY CDT procedure are i n the results section. documented in this encounter Results LDA ANE ENDOTRACHEAL AIRWAY (09/02/2021 7:59 AM CDT) Narrative Bibiana Arrington APRN, CRNA, MATTA - 0 09/02/2021 7:59 AM CDT Bibiana Arrington APRN, CRNA, MNA ? 09/02/2021 ??8:04 AM Airway Date/Time: 09/02/2021 7:59 AM Performed by: Bibiana Arrington APRN, CRNA MNA Authorized by: Brian Hearn M.D. Patient location during procedure: OR / Procedure Area PROCEDURE DETAILS: Mask difficulty assessment: easy mask Final airway type: video laryngoscope Laryngeal Manipulation: no ?? Final best view of glottic structures - Cormack/Lehane Score: grade 1 ETT location: oral VL device: glide scope [place] scope blade size: 3 Adult tube size: 7 Adult ETT distance at teeth/gum: 22 Oral tube type: standard ETT Cuffed: yes Number of attempt to successful placemen t: 1 Airway confirmation: bilateral breath so unds, positive ETCO2 and bilateral chest rise Other previous techniques attempted: non e PRE PROCEDURE DETAILS: Pre evaluation for airway management: pr ocedure Urgency: elective Preop assessment of probable difficulty: questionable / suspicious difficult airway Preoxygenation: bag valve mask SEDATION / ANESTHESIA Anesthesia method: anesthesia POST PROCEDURE DETAILS: ? Procedure outcome: successful ?? Airway event: no complications ATTESTATION STATEMENT Brian Hearn M.D. ANESTHESIA ORDERABLES documented in this encounter Visit Diagnoses Not on filedocumented in this encounter Administered Medications Inactive Administered Medications - up to 3 most recent administrations Medication Order MAR Action Action Date Dose Rate Site ceFAZolin injection 2,000 mg (ANCEF) Given 09/02/2021 8:45 AM CDT 2 g 2,000 mg (rounded from 1,815 mg = 25 mg/kg ? 72.6 kg), intravenous, Once, On Tue09/02/21 at 0730, For 1 dose, Intra-Op, Preoperatively within 1 hour prior to surgical incision If needed, reconstitute vial per package insert instructions. See IVAG for administration guidelines. , Drug Monitoring Program: Pharmacist to adjust medication dosing based on indication and drug clearance factors., Indications: Prophylaxis, surgical dexAMETHasone injection (DECADRON) Given 09/02/2021 8:50 AM CDT 4 mg intravenous, As needed, Starting on Tue09/02/21 at 0850, Anesthesia Intra-op fentaNYL injection (SUBLIMAZE) Given 09/02/2021 8:45 AM CDT 50 mcg intravenous, As needed, Starting on Tue09/02/21 at 0755, Anesthesia Intra-op Given 09/02/2021 7:55 AM CDT 50 mcg HYDROmorphone (PF) injection (DILAUDID) Given 09/02/2021 9:13 AM CDT 0.2 mg intravenous, As needed, Starting on Tue09/02/21 at 0849, Anesthesia Intra-op Given 09/02/2021 8:49 AM CDT 0.6 mg lactated ringers New Bag 09/02/2021 9:54 AM CDT intravenous, Continuous Infusion: Per Instructions PRN, Starting on Tue09/02/21 at 0755, Anesthesia Intra-op New Bag 09/02/2021 7:55 AM CDT lidocaine (PF) (cardiac) injection Given 09/02/2021 7:55 AM CDT 100 mg intravenous, As needed, Starting on Tue09/02/21 at 0755, Anesthesia Intra-op ondansetron (PF) injection (ZOFRAN) Given 09/02/2021 9:59 AM CDT 4 mg intravenous, As needed, Starting on Tue09/02/21 at 0959, Anesthesia Intra-op phenylephrine 80 Rate/Dose Change 09/02/2021 10:17 0.3 mcg/kg/min 16. 335 mL/hr mcg/mL in NaCl 0.9% AM CDT 250 mL infusion 0-1 mcg/kg/min ? 72.6 kg Dosing weight (0-54.45 mL/hr), intravenous, Continuous, Starting on Tue09/02/21 at 0715, Intra-Op, 20 mg in 250 mL, Patient Type: Standard, initiate at: Other, Rate: Per Provider, Titrate at: Other, Titrate: Per Provider, Goal: Other, Goal: Per Provider Rate/Dose Change 09/02/2021 9:25 AM CDT 0.2 mcg/kg/min 10.89 mL/hr Rate/Dose Change 09/02/2021 9:15 AM CDT 0.1 mcg/kg/min 5.445 mL/hr phenylephrine injection Given 09/02/2021 7:55 AM CDT 50 mcg intravenous, As needed, Starting on Tue09/02/21 at 0755, Anesthesia Intra-op propofoL injection (DIPRIVAN) Given 09/02/2021 8:09 AM CDT 30 mg intravenous, As needed, Starting on Tue09/02/21 at 0755, Anesthesia Intra-op Given 09/02/2021 7:55 AM CDT 70 mg rocuronium injection (ZEMURON) Given 09/02/2021 9:43 AM CDT 10 mg intravenous, As needed, Starting on Tue09/02/21 at 0755, Anesthesia Intra-op Given 09/02/2021 9:28 AM CDT 10 mg Given 09/02/2021 9:07 AM CDT 10 mg sugammadex injection (BRIDION) Given 09/02/2021 10:30 AM CDT 150 mg intravenous, As needed, Starting on Tue09/02/21 at 1030, Anesthesia Intra-op documented in this encounter Care Teams Marketing Area Manager Relationship Specialty Start Date End Date Elsewhere, Pcp PCP - General Internal Medicine 09/02/21 documented as of this encounter
--- OUTSIDE RECORDS SUMMARY | 2022-02-18 10:50 | XMS_ITS | Encounter Summary ---
:1945 Author Organization [facility] Address [address] [place] [address] Care Team Providers Name Role Phone Elsewhere, Pcp Primary Care Provider Unavailable Reason for Visit Auth/Cert Specialty Diagnoses / Procedures Referred By Contact Refer red To Contact Diagnoses Stenosis Spinal Stenosis Spinal [M48.00] Procedures L2-L5 Lumbar laminectomy Referral ID Status Reason Start Date Expiration Date Visits Requ ested Visits Authorized [id number] 1 1 Encounter Details Date Type Department Care Team Description 09/02/2021 - Hospital Encounter [facility] Castellon, Stenosis Spinal Lumbar With Neurogenic Claudication (Primary Dx); [facility]ine [facility]; [facility], [address] [facility] Contracture Hand Joint Right; [place], [place] Injury Brain Traumatic Personal History; [facility], [facility] [address] Injury Intracranial Brain Sequela (HCC); Floor [phone] Stenosis Spinal [address] (Work) [place], [place] [phone] (Fax) [phone] Social History Tobacco Use Types Packs/Day Years [...] or relatives? How often do you attend congregation or Never 2021 pentecostal services? Do you belong to any clubs or No 08/26/2021 organizations such as congregation groups, unions, fraternal or athletic groups, or [...] place to sleep or slept in a detention (including now)? Education Answer Date Recorded What is the highest level of Professional school degree (e.g ., , 08/25/2021 school you have completed or the DDS, DVM, ROSALVA) highest degree you have received? Sex Assigned at Date Recorded Female 08/25/2021 9:30 PM CDT documented as of this encounter Last Filed Vital Signs Vital Sign Reading Time Taken Comments Blood Pressure 103/47 09/04/2021 2:35 PM CDT Pulse 82 09/04/2021 2:35 PM CDT Temperature 37 ??C (98.6 ??F) 09/04/2021 1:40 PM CDT Respiratory Rate 15 09/04/2021 2:35 PM CDT Oxygen Saturation 98% 09/04/2021 2:35 PM CDT Inhaled Oxygen Concentration - - Weight 72.6 kg (160 lb) 09/02/2021 7:03 AM CDT Height 172.7 cm (5' 8) 09/02/2021 7:03 AM CDT Body Mass Index 24.33 09/02/2021 7:03 AM CDT documented in this encounter Discharge Summaries Abdoulaye Calderón M.D., Ph.D. - 09/04/2021 2:11 PM CDT DISCHARGE SUMMARY BRIEF OVERVIEW Hospital: [facility] Discharge Provider: Srinivasa Castellon M.D. 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 * Surgery Information This Encounter Past Procedures (09/04/2020 to Today) Date Procedures Providers Location 09/02/2021 L2-L5 Lumbar laminectomy. Srinivasa Castellon M.D.Ransom, Ryan C, M.D., Ph.D. T ROMB OR DISCHARGE DISPOSITION Rehab Facility [62] ACTIVE ISSUES REQUIRING FOLLOW UP None OUTPATIENT FOLLOW UP For appointment details refer to your Patient Appointment Guide. TEST RESULTS PENDING AT DISCHARGE Pending Labs None DETAILS OF HOSPITAL STAY REASON FOR ADMISSION Stenosis Spinal Stenosis Spinal Lumbar With Neurogenic Claudication HOSPITAL COURSE On the day of admission, the patient was taken to the operative theater by Dr. Castellon for the procedure described above. The intraoperative as well as the immediate postoperative course were uncomplicated. The patient was transferred from the PACU to the general neurosurgery floor where she had an uneventful recovery. She was then transferred to the general neurosurgical floor. At the time of dismissal the patient was functioning at her baseline and tolerating an oral diet. She was voiding spontaneously. She had optimal pain control with oral medications. Her incision remained clean, dry and intact. She then met criteria for dismissal and was dismissed to inpatient rehabilitation at [facility]. CONSULTS ORDERED DURING THIS ADMISSION IP CONSULT TO PHYSICAL MEDICINE & REHABILITATION IP CONSULT TO CARE MANAGEMENT IP CONSULT TO CARE MANAGEMENT CONDITION AT DISCHARGE stable Discharge instructions were provided to the patient and caregiver(s). documented in this encounter Discharge Instructions Discharge InstructionsLillie Loaiza - 09/02/2021 7:26 AM CDT NEUROSURGERY FOLLOW UP RECOMMENDATIONS: The patient should call Dr. Castellon's nurse with a 1 and 3 month progress report. Please contact Dr. Castellon's medical secretary teacher at [phone] (8 a.m. - 5 p.m. on days). documented in this encounter Medications at Time of Discharge Medication Sig Dispensed Refills Start Date End Date aspirin [address] tablet every morning. [...] 06/2013 D3) 25 mcg (1,000 Unit) capsule folic acid 1 mg tablet Take 1 tablet by 0 018 mouth daily. levETIRAcetam (KEPPRA) 500 mg in the 0 06/16/2016 250 mg tablet morning, 250 mg with lunch, 500 mg in evening melatonin 3 mg tablet Take 1 tablet (3 mg 0 09/04 total) by mouth at bedtime as needed for sleep. multivitamin/iron/folic Take by mouth. 0 acid (CENTRUM ORAL) acetaminophen (TYLENOL) Take 2 tablets 0 09/26/19 22 500 mg tablet (1,000 mg total) by mouth every 6 (six) hours as needed for mild pain or score 1-3 of 10, moderate pain or score 4-6 of 10 or headaches. diazePAM (DIASTAT) 2.5 mg Insert 5 mg into the 0 12/05/2020 rectal kit rectum as needed. psyllium, with aspartame, Take 1 packet by 0 09/11 (METAMUCIL) 3.4 gram mouth daily. packet acetaminophen (TYLENOL) Take 2 tablets 0 09/05/19 22 09/25/2021 500 mg tablet (1,000 mg total) by mouth 4 (four) times a day. bisacodyL (DULCOLAX) 10 Insert 1 suppository 0 09/25/2021 mg suppository (10 mg total) into the rectum daily as needed for constipation. calcium carbonate (TUMS) Chew 2 tablets (400 0 09/25/2021 500 mg (200 mg calcium) mg of calcium total) chewable tablet every 4 (four) hours as needed for heartburn or indigestion. heparin, porcine, 5,000 Inject 1 mL (5,000 0 08/1209/25/2021 units/mL injection Units total) under the skin every 8 (eight) hours. methocarbamoL (ROBAXIN) Take 1 tablet (750 0 08/1209/25/2021 750 mg tablet mg total) by mouth every 6 (six) hours as needed for muscle spasms. polyethylene glycol Take 1 packet (17 g 0 022 09/25/2021 (MIRALAX) 17 gram powder total) by mouth packet daily. Dissolve each 17 g dose in 240 mLs (8 ounces) of beverage. sennosides-docusate Take 1 tablet by 0 09/04/2021 09/25/2021 sodium (SENOKOT-S) 8.6-50 mouth 2 (two) times mg per tablet a day. documented as of this encounter Progress Notes Tremayne Iverson PMya. - 09/04/2021 1:19 PM CDT 09/04/21 1319 Plan PT Plan Comments Patient to discharge to [facility] inpatient rehabilitation facility. Patient will continue skilled therapy services. Goals set during this episode of care will continue to be addressed at next level of care. IET Tiff Cordova M.D. - 09/04/2021 1:12 PM CDT Facility Information: [facility] Physical Medicine and Rehabilitation Pre-Admission Screening Patient Information Patient Name: Aurora Langley Address: [address] [place] [id number] Sex: Female Date of : 1945 Age: 76 y.o. Room/Bed: 6/836-P Coverage Information: Payor: MEDICARE / Plan: MEDICARE A AND B / Product Type: Medicare / ____ Rehab Physician's Review and Admission Determination Ms. Langley is in need of acute inpatient rehabilitation in order to achieve the functional goals outlined below. She requires close rehabilitation physician monitoring and management due to her complex medical conditions and co- morbidities. She requires 24-hour rehabilitation nursing to manage boweland bladder function, skin care, surgical incision, nutrition and fluid intake, pulmonary hygiene, pain control, safety, medication management, patient / family goals. In addition, rehabilitation nursing will reiterate and reinforce therapy skills and equipment use, including ADLs, as well as provide education to the patient and family. Ms. Langley is willing to participate and is able to tolerate the proposed plan of care. 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 Langley is a 76 y.o. 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 She is now s/p L2-5 lumbar laminectomy, 09/02/21, for pseudoclaudication symptoms and reports of progressive lower limb weakness with MRI evidence of significant lumbar spinal stenosis.She is requiring maximal assistance of 2 therapists for transfers. She was noted to have right knee buckling during the transfer despite having her Cypriot knee cage and right AFO donned. At baseline, prior to surgery the patient was requiring minimal assistance for all transfers, stairs and ADLs from her . 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 She also has bathroom equipment and mostly uses a wheelchair within her home for mobility. 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 Over the last 5-8 years she has had a very slow progressive decline inher ambulation. Following her traumatic brain injury in 1995, she had regain her ability to ambulatewith use of an AFO on the right though never regained meaningful function of her right upper extremity. She has been walking with 's assistance for a long time. She has worn a diaper during the day and night for a long time. feels that her bladder got a little worse after she lost command of her legs last month. She has been working with therapy and deemed a candidate for inpatient rehab. Home Living Type of Home: House Home Layout: One level; Able to live on main level with bedroom/bathroom Home Access: Ramped entrance Bathroom Shower/Tub: Walk-in shower Bathroom Toilet: Comfort height Bathroom Accessibility: Yes How Accessible: Accessible via wheelchair Home Living Comments: patient also has two commodes, one rolling which is put by her main recliner/chair where the is a pole to assist with sit<>stand and a stationary commode by her bed Home Living Type of Home: House Home [...] her bed Home Equipment Gait Devices Owned: (also has rails installed in home to use for gait) Wheelchair : Manual Bathroom Equipment: Grab bars in shower, Shower chair without back, Grab bars around toilet Prior Function Level of Temperance: Needs assistance with ADLs; Needs assistance with homemaking (functional decline since 06/2021 per documentation.) Lives With: Spouse Receives Help From: Family ADL Assistance: Required assistance IADL/Homemaking Assistance: Required assistance Driving: Does not drive Special Rehabilitation Needs Special Rehabilitation Needs Miscellaneous Devices: Brace Requires modified schedule: No Language used during interpretation: Other (Comment) (Liberian) Precautions Precautions Precautions: Spinal precautions, Seizure precautions Diet Adult Diet Regular Current Functional Status Eating: Supervision or touching assistance (09/04/21853) Grooming: Supervision or touching assistance (09/04/21853) Upper Body Dressing: Partial/moderate assistance (09/04/21853) Lower Body Dressing: Dependent (09/04/21853) Toileting: Dependent (Incontinent) (09/04/21853) Bathing: Substantial/maximal assistance (09/04/21853) Bed Mobility: Dependent (2 assist) (09/04/21853) Transfers: Dependent (2 assist) (09/04/21853) Functional Mobility: Dependent (2 assist) (09/04/21853) Distance: 1 Meters (09/04/21853) Willingness to Participate: Independent (09/04/21853) Cognition: Supervision or touching assistance (H/O TBI) (09/04/21853) Communication: Partial/moderate assistance (H/O TBI) (09/04/21853) Assistive Device: Walker (09/04/21853) Weight Bearing Status Upper Extremity Weight Bearing Restrictions RUE Weight Bearing: Weight bearing as tolerated LUE Weight Bearing: Weight bearing as tolerated Lower Extremity Weight Bearing Restrictions RLE Weight Bearing: Weight bearing as tolerated LLE Weight Bearing: Weight bearing as tolerated Rehabilitation Goals and Plans Rehab Goals and Plan Expected Level of Improvement for Mobility: The patient will ambulate safely and independently with a gait aid as needed Expected Level of Improvement for Self Care: Independent with ADLs with or without equip Expected Level of Improvement for Cognition: At baseline Expected Level of Improvement for Communication: At baseline Patient/Caregiver Goals: To return home with family Patient/Caregiver Goals: be able to complete cares with support of spouse to return home Required Treatments and Services: Rehabilitation Physician, Rehabilitation Nursing, Physical Therapy, Occupational Therapy, Speech Therapy, Recreational Therapy, Permastone Applicator, Industrial Technology Teacher, Rehabilitation Psychology, Bowel and Bladder Management, Beam Dyer Recessed Vat, and Wool And Pelt Grader Services Anticipated Services Upon Discharge Anticipated Interventions Anticipated Interventions: Physical Therapy, Occupational Therapy PT Projected Minutes/Day: 90 PT Projected Days/Week: 5 OT Projected Minutes/Day: 90 OT Projected Days/Week: 5 Rehabilitation nursing to manage: bowel and bladder function, skin care, surgical incision, nutrition and fluid intake, pulmonary hygiene, pain control, safety, medication management, patient / family goals Discharge Information Discharge information Projected Admission Date: 09/04/21 Barriers: Comorbidities Discharge Support: Spouse Estimated Length of Stay: 7 Anticipated Discharge Destination: 01 - Home (private home/apartment, assisted living, senior care, transitional living) Anticipated Services Upon Discharge Anticipated Services Upon Discharge: Outpatient Therapy Learning Assessment Questions Primary Learner Name: Aurora Relationship: Patient Does the primary learner have any barriers to learning?: Language, Cognitive What is the preferred language of the primary learner for medical teaching?: Other (Comment) Comment: Liberian Is an regulatory and compliance technician required?: No Comment: Her states, she understands, seems there is some expressve aphasia How does the primary learner prefer to learn new concepts?: Demonstration / Seeing, Pictures / Videos, Reading, Listening Co-Learner Name (if applicable): Kirk Relationship: Patient Does the co-learner have any barriers to learning?: No Barriers What is the preferred language of the co-learner for medical teaching?: Other (Comment), Indian Is an regulatory and compliance technician required?: No Comment: Her states, she understands, seems there is some expressve aphasia How does the co-learner prefer to learn new concepts?: Listening, Reading, Doing Information Brochures Given: Data Collection Information Summary for Patients in Inpatient Rehabilitation Facilities, Inpatient Rehabilitation Programs [id number], Spinal Cord Rehabilitation [id number] Tiff Cordova M.D. Shannan Huff CRRN - 09/04/2021 12:07 PM CDT Following with the PMR Spine Consult Team. The PMR team recommends IPR and feels she would be a candidate for [facility]. I met with Ms. Langley and her and her to discuss transfer to [facility]. I spoke with Mr. Langley, as the patient was sleeping and he requested not to wake up. Mr. Langley verbalizes a preference to transfer to [facility] as she was a patient on the rehab unit 20 years ago and had a favorable experience. Mr Langley went on to verbalize his concerns about changes in her status this morning which include cognition and TOBACCO SWEEPER shunt. We discussed tranfer to [facility] would not occur until she is medically stable. I reviewed the insurance disclosure statement; he verbalized understanding. I have reached out to Dr. Calderón with Mr. Langley's concerns and he will assess. All questions addressed. Addendum: Head CT negative and primary and rehab team are ok with transfer to [facility]. I contacted nursing, SW and CM to notify them of the transfer. IET Tiff Cordova M.D. - 09/04/2021 11:49 AM CDT SUBJECTIVE Ms. Langley is 76 y.o. female followed by Physical Medicine and Rehabilitation for rehabilitation needs in the setting of L2-L5 laminectomies for lumbar stenosis in the background of chronic TBI sequela. Since the last visit, Ms. Langley has no new complaints. Her reports she had a great day yesterday and she seemed more like her old self. This morning, however, he notes that she is different.She is having a little more trouble with following some commands but will do well with others. And he has noticed that she seems to not be attending to things on her right side as usual. I have reviewed the current medication list. OBJECTIVE Temperature: [36.2 ??C-37.4 ??C] 36.9 ??C Resp Rate: [14-16] 15 Blood Pressure: (102-121)/(46-60) 121/58 SpO2: [71 %-98 %] 96 % Physical Exam: assisted with Liberian interpretation at bedside. GENERAL: Awake, Alert. No acute distress. Laying in hospital bed, resting comfortably. HEENT: Palpable right sided shunt with tubing. Conjugate gaze. Mild right facial asymmetry at rest but improves with smile. LUNGS: Unlabored breathing pattern. Normal rate. Tolerating room air. ABDOMEN: Soft, nontender, nondistended. EXTREMITIES:Right turkish brace and ankle brace and shoes in place. MENTAL STATUS: Oriented to self and situation. Answers simple questions appropriately MOTOR SPEECH: Slowed rate, intelligible. LANGUAGE: Increased response latency. Expressive aphasia. Basic comprehension appears intact. Follows simple gross motor commands without cues. Required [id number] assistance to show left thumbs upor show two fingers. Perseverated on putting her fingers in her mouth when asked to point to her nose . MUSCLE STRENGTH: Activates left sided limbs within functional limits, right lower limb activates with about -1 strength. Right spastic hemiparesis, most prominent in the upper limb at MAS 3. Diagnostics I reviewed the imaging studies and agree with the interpretation as recorded. I reviewed the pertinent laboratory and diagnostic data. 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 Based on her functional performance yesterday, the rehabilitation team feels that she is a candidate for acuteinpatient rehabilitation with reasonable goals to improve her functional status closer to her previous functional baseline. She requires rehabilitation nursing and direct physiatric oversight for ongoing neurologic monitoring, pain management, seizure precautions, fall precautions, medication management, sleep regulation. Mrs Pavons is below her previous functional baseline. She is also not quite performing as well asshe did yesterday. She is demonstrating some increased aphasia and/or apraxia that is concerning to her . Counselled him that this change may be due to a number of things -- recent general anesthesia, pain medication side effects, fatigue, limited neurologic reserve -- but I would have a lower threshold for imaging her brain given the changes noted. Should HCT be unremarkable, we could potentially proceed with admission to acute inpatient rehabilitation later this afternoon if our bed availability and staff allows; otherwise, we will plan on re-assessing for admission to the acute inpatient r ehabilitation unit tomorrow morning. PPE use information for possible contact monitoring: PPE used during visit: Provider was wearing a mask and eye protection throughout entire session. Patient was NOT wearing mask during entire session. Additional person present and PPE use: spouse, Surgical mask Abdoulaye Calderón M.D., Ph.D. - 09/04/2021 6:10 AM CDT Neurosurgery Progress Note -POD#2 s/p L2-L5 laminectomies for lumbar stenosis with gait instability by Dr. Castellon. -Interval Events: No acute events overnight. Hemodynamically and neurologically stable. Doesn't endorse any incisional pain this morning. Single low dose oxycodone used overnight. Tolerating PO intake.Voiding spontaneously. Last BM 09/03/21. Will continue to mobilize with PT today. -Exam: RUE spastic paresis at baseline. Bilateral lower extremities with at least antigravity strength. Right AFO and knee brace in place. Incision closed with aries and covered in Prim[place], which is dry. -Drain: 68cc output yesterday, removed yesterday evening. -Plan: Pain management with PO oxycodone, IV Toradol, and PO Tylenol. Robaxin for muscle spasms. Blood pressure goal systolic <160 with PRN hydralazine and labetalol. Rosales in place, remove this morning. Bladder scans and I/O catheterization as needed. Bowel regimen senna/docusate, miralax and PRN b isacodyl suppository. IV Zofran for nausea control. Continue home meds as ordered. Elisabeth-operative antibiotic prophylaxis completed. Regular diet. Activity as tolerated. PMR/PT/OT. SCDs. SQH this evening. -Dispo: General Care status. PMR consulted for consideration of inpatient rehabilitation. Medically stable for transfer to inpatient rehabilitation if accepted. 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 Castellon's service at [phone] Bon Calderón M.D., Ph.D. Abdoulaye Calderón M.D., Ph.D. - 09/03/2021 6:18 AM CDT Neurosurgery Progress Note -POD#1 s/p L2-L5 laminectomies for lumbar stenosis with gait instability by Dr. Castellon. -Interval Events: No acute events overnight. Hemodynamically and neurologically stable. Doesn't endorse any incisional or radicular pain postoperatively. No opioids used since surgery. Tolerating PO intake. Will mobilize today. She uses a wheel chair at home. -Exam: RUE spastic paresis at baseline. Bilateral lower extremities with at least antigravity strength. Right AFO and knee brace in place. Incision closed with aries and covered in Prim[place], which is dry. -Drain: 60cc output overnight, 225cc since placement. -Plan: Pain management with PO oxycodone, IV Toradol, and PO Tylenol. Robaxin for muscle spasms. Postop labs within acceptable range - Hgb 11.2. Blood pressure goal systolic <160 with PRN hydralazine and labetalol. Rosales in place, remove this morning. Bladder scans and I/O catheterization as needed. Bowel regimen senna/docusate, miralax and PRN bisacodyl suppository. IV Zofran for nausea control. Continue home meds as ordered. Elisabeth-operative antibiotic prophylaxis while drain in place. Regular diet. Activity as tolerated. PMR/PT/OT. SCDs. Holding [facility]. -Dispo: General Care status. PMR consulted for consideration of inpatient rehabilitation. Medically stable for discharge with drain removal this afternoon. 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 Castellon's service at [phone] Bon Calderón M.D., Ph.D. Abdoulaye Calderón M.D., Ph.D. - 09/02/2021 12:22 PM CDT Neurosurgery Progress Note -POD#0 s/p L2-L5 laminectomies for lumbar stenosis with gait instability by Dr. Castellon. -Interval Events: Tolerated procedure well. Hemodynamically and neurologically stable. Doesn't endorse any incisional pain postoperatively. Will advance diet as tolerated and mobilize when able. She uses a wheel chair at baseline. -Exam: CN intact. RUE spastic paresis at baseline. Bilateral lower extremities with at least antigravity strength. Right AFO and knee brace in place. Incision closed with aries and covered in [place], which is dry. -Drain: 75cc output since placement. -Plan: Pain management with PO oxycodone, IV Toradol, and PO Tylenol. Robaxin for muscle spasms. Postop labs ordered. Blood pressure goal systolic <160 with PRN hydralazine and labetalol. Rosales in place, remove AM of POD#1 or earlier at patient request. Bowel regimen senna/docusate, miralax and PRNbisacodyl suppository. IV Zofran for nausea control. Continue home meds as ordered. Elisabeth- operative antibiotic prophylaxis while drain in place. Regular diet. Activity as tolerated. PMR/PT/OT. SCDs. Holding [facility] -Dispo: General Care status. PMR consulted for consideration of inpatient rehabilitation. 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 Castellon's service at [phone] Bon Calderón M.D., Ph.D. Mp Simons PharmAramis, R.Ph. - 09/02/2021 7:37 AM CDT Images from the original note were not included. Admission Medication History Note Adherence issues: No concerns Medication list source: Patient Medication related information: Prior to Admission Medications Med List Status: Pharmacy Complete Set By: Mp Simons, Bria, R.Ph. at 09/02/2021 7:37 AM Taking? Last Dose Informant Start Date End Date LT aspirin [address] tablet 09/01/2021 02/16/08 -- every morning. atorvastatin (LIPITOR) 10 mg tablet 08/31/2021 08/20/21 -- every other day. carBAMazepine (CARBATROL) 100 mg 12 hr capsule 09/02/2021 08/20/21 -- 1 capsule (100 mg total) 2 (two) times a day. carBAMazepine (CARBATROL) 200 mg 12 hr capsule 09/02/2021 -- -- Take 400 mg by mouth 2 (two) times a day. cholecalciferol (VITAMIN D3) 25 mcg (1,000 Unit) capsule Past Week 05/13/14 -- One time per week diazePAM (DIASTAT) 2.5 mg rectal kit More than a month 12/05/20 -- Insert 5 mg into the rectum as needed. folic acid 1 mg tablet 03/13/18 -- Take 1 tablet by mouth daily. levETIRAcetam (KEPPRA) 250 mg tablet 09/02/2021 06/16/16 -- 500 mg in the morning, 250 mg with lunch, 500 mg in evening multivitamin/iron/folic acid (CENTRUM ORAL) -- -- Take by mouth. documented in this encounter Consult Notes Kyra Conroy P.T. - 09/03/2021 1:44 PM CDT Physical Therapy Acute Hospital Inpatient Evaluation/Treatment PT direct access: Patient presents to Physical Therapy direct access. Should patient fail to make progress toward goals within 6 visits they will be referred to a primarycare provider for additional medical screening. SUBJECTIVE Referring/Attending Provider: Srinivasa Castellon M.D. Patient's Name: Aurora Langley Reason for Referral: PT eval and treat Medical Diagnosis: 1. Decline Functional Status 2. Contracture Hand Joint Right 3. Injury Brain Traumatic Personal History 4. Injury Intracranial Brain Sequela (HCC) 5. 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 Paravaginal defect repair. OTHER CONVERTED SHX (SEE COMMENT) N/A 06/20/2013 >Odontectomy. OTHER CONVERTED SHX (SEE COMMENT) N/A 02/04/1997 >Odontectomy OTHER CONVERTED SHX (SEE COMMENT) N/A 08/14/1996 >Endosseous implant reconstruction of site Nos. 18, 20 and 21. OTHER CONVERTED SHX (SEE COMMENT) N/A 06/20/1997 >Endosseous implant reconstruction No. 9 site. OTHER CONVERTED SHX (SEE COMMENT) N/A 01/21/1997 >Soft tissue uncovering and abutment connection of Nos. 9, 18 and 29 implants. OTHER CONVERTED SHX (SEE COMMENT) N/A 04/10/1996 >Maxillary Leforte I osteotomy with advancement and right rotation (2 piece, Leforte I level). OTHER CONVERTED SHX (SEE COMMENT) N/A 12/22/1995 >Odontectomy OTHER CONVERTED SHX (SEE COMMENT) N/A 12/14/1995 >Removal of 11-hole titanium mandibular reconstruction plate and associated 7 screws. OTHER CONVERTED SHX (SEE COMMENT) N/A 02/03/1998 >Soft tissue uncovering and abutment connection. OTHER CONVERTED SHX (SEE COMMENT) N/A 08/02/1996 >Implant reconstruction of edentulous sites Nos. 9 and 29 (one 18 mm self tapping in No. 9 site and one 12 mm OTHER CONVERTED SHX (SEE COMMENT) N/A 05/09/1992 >Esophagogastroduodenoscopy (Olympus [id number]) PREMEDICATION: Versed 5 mg, Demerol 100 mg IV, and OTHER CONVERTED SHX (SEE COMMENT) N/A 09/25/2012 >Odontectomy. OTHER SURGICAL HISTORY extensive brain & oral [...] of spouse to return home Patient Comments: marcellab states she understands korean; ?? 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 Level of Temperance: Needs assistance Previous Transfer/Mobility Assistance Comments: progressive [...] her bed Home Equipment Gait Devices Owned: (also has rails installed in home to [...] out of the bed at home OBJECTIVE R turkish knee cage and ankle brace donned prior to arrival and donned throughout session donned by Pain: none reported Vitals:Not indicated at this time Cognition Arousal/Alertness: Appropriate responses to stimuli Attention: Impairments noted Right Neglect: Moderate Initiation: Slow/delayed initiation Following Commands: Inconsistently following commands Following Commands Comments: ? communication/language difficulties Safety/Judgment: Impairments noted Cognition Comments: known deficits from previous TBI, does follow commands most accurately when provided by spouse in trinidadian when completing more complex movements or when she is more anxious ROM - Upper Extremity Screen: Impaired right [...] quad and hip flex; ankle signif limited Bed Mobility - Supine to Sit # of Assistants: 2 Level of Assistance: Moderate assistance Device: Bed rail Bed Mobility - Sit to Supine Level of Assistance: Moderate assistance Sit to Stand Transfers # of Assistants: 1 Transfer Surface: Bed, Chair Transfer Equipment: Gait belt, Jon walker Level of Assistance: Maximal assistance Assessment/Delivery: Therapist assisted, Facilitated Stand to Sit Transfers Transfer Surface: Bed, Chair Transfer Equipment: Gait belt Level of Assistance: Moderate assistance Comments: difficulty with unsupported sitting Bed, Chair, Wheelchair Transfers # of Assistants: 2 Transfer Surface: Bed, Chair Transfer Approach: To and from Transfer Equipment: No device, Sit to stand machine Level of Assistance: Maximal assistance, Moderate assistance Comments: max Aof 2 for standing pivot; A of 2 for shannan steady Gait Assessment/Training Distance (m): 1 m Surface: Even Device: No device, Gait belt # of Assistants: 2 Level of Assistance: Maximal assistance Stability: poor Assessment of Gait: unable to wt shift, downward gaze, knee R buckled Cueing Provided: Verbal, Tactile Training/Intervention: cues for gait mechanics Response: limited Patient/Family Education: for safe mob and protection of hemiparetic limbs At the end of today's therapy session patient was left in bed w husb present with an appropriate call light within reach. Patient's needs and questions addressed during today's session. Contact monitoring: PPE used during therapy: Therapist was wearing the following PPE throughout entire session: surgicalmask and eye protection Family member/caregiver present was wearing a mask: yes Assessment Pt seen in room; husb present and supportive throughout session. Aurora responds better when he speaks in Liberian. Bed mob with moderate A of 2 sup=>sit at edge of bed. Unsupported sitting difficult unless feet are on floor. R inattention and R UE in IR/flexed posture (not a fixed position). R LE with turkish knee cage and ankle brace. Husb will bring shoes. Prior to admission, pt and husb worked extremely well together to manage activities of daily living, bathroom and limited ambulation. They have rails installed in home for her to ambulate with assist. Currently functioning from a wheelchair base or seated in recliner chair at home. Sit=>stand at edge of bed with moderate/max A of two. PT as sisting with wt shift and OT preventing R knee buckling. Attempted taking steps with max A again to chair. Antigravity quadriceps R and resistance to quad/hip flex. ER R hip with weight bearing. Pt notunderstanding commands. Sit=>stand from chair with max A of PT, with pt attempting to use hemiwalker. (not successful). Trial of Shannan Steady for transfer back to bed; husb needed to interpret for ptto comprehend process. Suggested nrs use this for transfers. Max A sit=>sup with pt losing balance at edge of bed. Plan to continue per plan of care to increase safe mob and attempt to attain pre-surgical level of function with assist of husb. From the Physical Therapist's perspective, the patient is an inpatient rehabilitation candidate due to requiring ongoing physical assistance with skilled need for activities of daily living and/or cognition. Will formally discuss at next PMR team rounds and communicate with primary service accordingly. Rehab Potential: Ms. Langley has Good potential to achieve established physical therapy goals within the time frame outlined below. Barriers to a safe discharge home: Barriers to Discharge Home: Current functional status, Safety concerns Barriers to Discharge Comments: requires assist of two for mobilizing Comorbid Conditions: Other (Comment) Personal Factors: Balance impairment, Communication deficit, Hand dominance, History of falls, Needsassistive device, Safety awareness Skilled therapy can include physical therapy provided by home health, outpatient clinic, or a post-acute facility. The location of these services is determined by the patient's care team in partnershipwith patient/family. Functional Goals and Timeframes: PT Goal #1: safe bed mob with min A PT Goal #2: safe transfers with min A of 1 PT Goal #3: safe ambulation w min A of for dc home PT Goal #4: safe unsupported sitting with L UE/LE activ Plan Patient agrees with the plan of care and goals. Treatment Plan: PT Frequency: 6 times per week PT Inpatient Duration : Until goals are met or hospital discharge Plan: Plan of care initiated Treatment interventions may include: Treatment/Interventions: Therapeutic exercise, Therapeutic functional activity, Neuromuscular re-education, Gait training, Self-care/home management Clinical Presentation: Evolving Number of Examination elements: 4+ Clinical Decision Making: High complexity clinical decision making Time Spent with Patient PT Eval - High Complexity: 15 min Therapeutic Activity (min): 30 min Total Timed Units (min): 30 min Total Treatment Time (min): 45 min Kyra Conroy P.T. Julee Pete O.TMyesha - 09/03/2021 12:00 PM CDT Occupational Therapy Acute Hospital Inpatient Evaluation/Treatment SUBJECTIVE Referring/Attending Provider: Srinivasa Castellon M.D. Patient's Name: Aurora Langley Reason for Referral: OT spine consult eval/treat Medical Diagnosis: 1. Decline Functional Status 2. Contracture Hand Joint Right 3. Injury Brain Traumatic Personal History 4. Injury Intracranial Brain Sequela (HCC) 5. Stenosis Spinal Onset Date: 09/02/21 Payor: MEDICARE / Plan: MEDICARE A AND B / Product Type: Medicare / PERTINENT MEDICAL / SURGICAL HISTORY: Patient Active Problem List Diagnosis ??? Epilepsy Seizure Generalized Convulsive (HCC) ??? Stenosis Spinal ??? Injury Brain Traumatic Personal History ??? Contracture Hand Joint Right ??? 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 Injury Intracranial Brain Sequela (HCC) Past Surgical History: Procedure Laterality Date ??? 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 Level of Temperance: Needs assistance Previous Transfer/Mobility Assistance Comments: progressive [...] : Manual (has two wheelchair, purchased from [employer]) Bathroom Equipment: Grab bars in shower, Shower chair without back, Grab bars around toilet Fall Risk (65 and older) Fall in the last 12 months: Yes Did you have an injury with the fall?: No Are you fearful of falling?: Yes Fall Risk Comments: patient slipped out of the bed OBJECTIVE Pain: reports no pain this session Cognition Cognitive assessment method: Therapist observations Arousal/Alertness: Appropriate responses to stimuli Cognition Comments: known deficits from previous TBI, does follow commands most accurately when provided by spouse in trinidadian when completing more complex movements or when she is more anxious Balance Static Sitting-Balance: Good (Maintains balance without support) Dynamic Sitting-Balance: Fair (Maintains balance with handheld/contact guard assistance) Static Standing-Balance: Poor (Requires assistance to maintain balance) Dynamic Standing-Balance: Unable Activity Tolerance Endurance: Tolerates 10-20 minutes of activity Sitting Tolerance: good Standing Tolerance: poor ROM - Upper Extremity Screen: Impaired right ROM - Upper Extremity Screen Comments: passive range of motion limitations for RUE from old TBI; passive range present and pain free within functional range for self cares; no deficits in LUE ROM - Lower Extremity Screen: Impaired right Strength - Upper Extremity Screen: Impaired right Strength - Upper Extremity Screen Comments: no functional use of RUE Strength - Lower Extremity Screen: Impaired right & left Gross Hand Function Right Hand Gross Grasp: Impairment noted Left Hand Gross Grasp: Functional Right Hand Coordination: Impairment noted Left Hand Coordination: Functional ADL re-training: focus on functional mobility with PT this date. OT providing facilitation for R LE weight bearing with short ambulation and pivot to bedside chair. Required blocking of R knee due to buckling, patient not aware of buckling. Did provide tactile trunk cues while resting on shannan steady to locate midline and maintain, progressing to contact guard assistance to stand by assistance. At the end of today's therapy session patient was left in bed with the bed alarm on with an appropriate call light within reach. Patient's needs and questions addressed during today's session. Contact Monitoring: PPE used during therapy: Therapist was wearing the following PPE throughout entire session: surgicalmask and eye protection Additional Staff Present During Session: Cheri Conroy - PT Assessment Patient is functioning below her baseline as [...] assistance to maximal assistance from her spouse. From the Occupational Therapist's perspective, the patient needs further assessment. Patient is withemerging skills, but will need to demonstrate consistent participation level and tolerance in order to be a candidate for inpatient rehabilitation. Will formally discuss at next PMR team rounds and comm unicate with primary service accordingly. Rehab Potential: Ms. Langley has good potential to achieve established occupational therapy goals within the time frame outlined [...] showering/bathing, Assistance with dressing, Physical assistance needed Skilled therapy can include occupational therapy provided by home health, outpatient clinic, or a post-acute facility. The location of these services is determined by the patient's care team in partnership with patient/family. Functional Goals and Timeframes: OT Goal #1: Pt will complete toilet transfer with moderate assistance x1 OT Goal #1 Date: 09/10/21 OT Goal #2: Pt will complete shower transfer with moderate assistance x1 OT Goal #2 Date: 09/10/21 OT Goal #3: Pt will be able to maintain standing with adaptive setup and moderate assistance to allow caregiver to safely assist with clothing management for self cares OT Goal #3 Date: 09/10/21 OT Goal #4: Pt's spouse will verbalize understanding on safe mechanics and DME for patient to continue to participate with ADL cares OT Goal #4 Date: 09/10/21 Progress: Progressing toward goals Plan Patient agrees with the plan of care and goals. Treatment Plan: OT Frequency: 5 times per week OT Amount: 1 visit per day OT Inpatient Duration : Until goals are met or hospital discharge Plan: Plan of care initiated Treatment interventions may include: Treatment Interventions: Therapeutic exercise, Therapeutic functional activity, Neuromuscular re-education, Self-care/home management Occupational Profile and History review: Extensive Performance Deficits: at least 5 performance deficits Evaluation Complexity: High Time Spent with Patient OT Eval - High Complexity: 35 min Home Management Training (min): 8 min Time Calculation Total Timed Units (min): 8 min Total Treatment Time (min): 43 min Julee Pete O.T. Aida Mckeon D.O. - 09/02/2021 4:10 PM CDTAssociated Order(s): IP CONSULT TO PHYSICAL MEDICINE & REHABILITATION SUBJECTIVE Reason for Consult Physical Medicine and Rehabilitation consult (hospital) Referring Provider: Abdoulaye Calderón M.D., Ph.D. Reason for Consult: Admitted with lumbar stenosis and recent left leg weakness. Remote hx TBI with right leg weakness. Using wheelchair since June. Now s/p L2-5 lumbar laminectomy. History of Present Illness Ms. Langley is a 76 y.o. 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 She is now s/p L2-5 lumbar laminectomy, 09/02/21, for pseudoclaudication symptoms and reports of progressive lower limb weakness with MRI evidence of significant lumbar spinal stenosis. PM&R has consulted for post acutecare rehabilitation recommendations. The patient has had a fairly uncomplicated postoperative course. Rosales catheter and surgical drain remains in place. She has had minimal use of opioids following her surgery. She had 5 mg oxycodone this morning. She has not yet had a bowel movement since surgery. She denies worsening of right sided spasticity since surgery. Both physical and occupational therapy were able to work with the patient today. She is requiring maximal assistance of 2 therapists for transfers. She was noted to have right knee buckling during the transfer despite having her Cypriot knee cage and right AFO donned. At baseline, prior to surgery the patient was requiring minimal assistance for all transfers, stairs and ADLs from her . 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 She also has bathroom equipment and mostly uses a wheelchair within her home for mobility. 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 Functional history (chart review): over the last 5-8 years she has had a very slow progressive decline in her ambulation. Following her traumatic brain injury in 1995, she had regain her ability to ambulate with use of an AFO on the right though never regained meaningful function of her right upper extremity. She has been walking with 's assistance for a long time. She has worn a diaper duringthe day and night for a long time. feels that her bladder got a little worse after she lost command of her legs last month. The following portions of the patient's history were reviewed and updated as appropriate: allergies,current medications, medical history, social history, surgical history, problem list, labs, diagnostics tests.. I reviewed the pertinent clinical notes in the electronic health record. Review of Systems Pertinent items are noted in HPI; all other review of systems were negative. OBJECTIVE Temperature: [36.4 ??C-36.9 ??C] 36.6 ??C Heart Rate: [67-86] 67 Resp Rate: [8-21] 15 Blood Pressure: (85-136)/(42-79) 99/48 SpO2: [92 %-97 %] 96 % Height: [172.7 cm] 172.7 cm Weight: [72.6 kg] 72.6 kg BMI (Calculated): [24.3 kg/m??] 24.3 kg/m?? Physical Exam GENERAL: Alert. No acute distress. Very pleasant, agreeable. provides all of the history given patient's aphasia and language barrier. She has right Cypriot knee cage and right ankle-foot orthosis donned. HEART: Regular Pulse Rate. Pulses palpable bilaterally. LUNGS: Unlabored breathing pattern. Normal rate. EXTREMITIES: No swelling or erythema. No calf tenderness. SKIN: Exposed areas of skin are clean, dry, and intact, 1 surgical drain. LANGUAGE: Aphasic. Typically nods throughout discussion and questioning, answers of which provide MUSCLE STRENGTH: She provides active range of motion at the hips knees and ankles bilaterally. She has some weakness against resistance with right ankle dorsiflexion (baseline). She is able to follow commands of providing strength against resistance, and at least a 4/5 throughout the lower limbs. TONE: Baseline right upper extremity shoulder internal rotation elbow flexion wrist flexion and finger flexion positioning due to chronic spasticity/tone. MAS=3 throughout the right upper limb. Right ankle plantar flexion tone, MAS=2. Diagnostics I reviewed the imaging studies and agree with the interpretation as recorded. I reviewed the pertinent laboratory and diagnostic data. 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 Langley and her who goes by Kirk today. The patient didwell tolerating co treatment with PT and OT today. She is requiring max assist of 2 for transfers and have not yet trialed steps. Her baseline level of function is minimal assistance for transfers and steps with her and primarily wheelchair based mobility. Her right spastic hemiplegia seem to be at baseline and not exacerbated by recent surgery. She has not yet had a bowel movement since surgery and her Rosales catheter remains in place. The patient and her 's goals are to return to pre-surgical level of physical assistance needed in order to function well at home. We will continue to assess patient for most appropriate post acute care rehabilitation needs, and specifically look into whether she meets inpatient rehabilitation criteria including activity tolerance, medical need and anticipation of reaching pre-surgical level of independence within a relatively short time frame. I will discuss patient's case in detail with my colleague, Dr. Cordova, who will be covering the spineconsult service tomorrow. Please contact my pager ([phone]) with questions or concerns. Aida Mckeon D.O. documented in this encounter OR Notes Op Note - Srinivasa Castellon M.D. - 09/02/2021 10:08 AM CDT Operating room 702. PRE-OPERATIVE DIAGNOSIS Gait deterioration. Severe lumbar pseudoclaudication. Severe spinal stenosis L2-L5. POST-OPERATIVE DIAGNOSIS Gait deterioration. Severe lumbar pseudoclaudication. Severe spinal stenosis L2-L5. A project assistant actively participated and was necessary for one or more of the following: opening,exposure and visualization during the case, maintaining hemostasis, wound closure resulting in its safe and expeditious completion. FINDINGS As expected. COMPLICATIONS None. OPERATIVE NOTE NARRATIVE The patient was brought into the operating room and placed under excellent general endotracheal anesthesia and turned prone on the operating table. Great care was taken to pad all bony prominences. Thearea of the low back was then prepped and draped in the usual sterile fashion, and a linear incisionwas made along the spinous processes of L2-L5. Through sharp and blunt dissection, the erector spinae were dissected laterally, exposing the lamina of L2-L5 bilaterally. X-ray confirmed our position aswell as anatomic and physiologic landmarks. Using the Midas Braydon with a deidra bit, and a series of sharp rongeurs, an L2-L5 decompressive lumbar laminectomy was performed. Ligamentum flavum was split in the midline, using a series of Kerrison rongeurs, the lateral recesses were rongeured completely freeing all nerve roots in their foramen. These were all free to both palpation and visualization from L2-S1. Meticulous hemostasis was then achieved. The wound was irrigated copiously with Ancef irrigation solution, and the ivan of the cavity were lined with vancomycin powder, the wound was then closed in anatomic layers and a sterile dressing was applied to the skin. The patient was taken to the recovery room. TPR: 3, Laminectomy, lateral recess stenosis release Srinivasa Castellon M.D. CT CT Job ID: [id number] Brief Op Note - Abdoulaye Calderón M.D., Ph.D. - 09/02/2021 8:50 AM CDT Pre-op Diagnosis Stenosis Spinal Post-op Diagnosis Stenosis Spinal Findings As expected. Complications None Incision closed with aries. Single deep Davol drain to bulb suction. Bon Calderón M.D., Ph.D. documented in this encounter Plan of Treatment Not on filedocumented as of this encounter Procedures Procedure Name Priority Date/Time Associated Comments Diagnosis CT HEAD WITHOUT IV RAD - Semiurgent 09/04/2021 12:38 R esults for CONTRAST (Fast; most ED PM CDT this procedur e patients; some are in the inpatients) results section. CBC WITH Routine 09/03/2021 5:07 Results for DIFFERENTIAL, B AM CDT this procedu re are in the results section. BASIC METABOLIC Routine 09/03/2021 5:07 Results f or PANEL, S/P AM CDT this procedure are in the results section. ADULT OXYGEN THERAPY Routine 09/02/2021 10:44 AM CDT DX SPINE 1 VIEW RAD - Routine 09/02/2021 9:11 Results for (most inpatients AM CDT this proced ure and all are in the outpatients) results section. DECOMPRESSION SPINE 09/02/2021 7:23 Stenosis Spinal - POSTERIOR LUMBAR AM CDT documented in this encounter Results CT Head without IV Contrast (09/04/2021 12:38 PM CDT) Anatomical Region Laterality Modality Head, Neuroradiology RST LOS, N/A Computed T omography, Computed Neuroradiology ARZ LOS, Neuroradiology T omography FLA LOS Specimen (Source) Anatomical Collection Method Collection Time Re ceived Time Location / / Volume Laterality 09/04/2021 12:38 PM CDT Impressions 09/04/2021 1:05 PM CDT No acute intracranial findings. Narrative 09/04/2021 1:05 PM CDT EXAM: CT HEAD WITHOUT IV CONTRAST COMPARISON: Head MRI 08/07/2021. Head CT 06/01/2016. FINDINGS: No acute hemorrhage. No clear findings of new infarct. Ventricular system remains decompressed. As on comparison exams extensive encepha lomalacia at left occipital, parietal, posterior temporal and frontal lobes as well as right occip ital, posterior temporal and parietal lobes. Additional stable focus of encephalomalacia at supe rior posterior right frontal lobe. A shunt traverses the right frontal lobe and traverses the lef t lateral ventricle with its tip approaching the posterior left subinsular region. Hardware associated with prior facial fr actures about maxillary regions appear stable. Well aerated paranasal sinuses and mastoid air cells. Intracranial arterial calcifications. Procedure Note Jose Garcia Jr., M.D., Ph.D. - 08/12 EXAM: CT HEAD WITHOUT IV CONTRAST COMPARISON: Head MRI 08/07/2021. Head CT 06/01/2016. FINDINGS: No acute hemorrhage. No clear findings of new infarct. Ventricular system remains decompressed. As on comparison exams extensive encepha lomalacia at left occipital, parietal, posterior temporal and frontal lobes as well as right occip ital, posterior temporal and parietal lobes. Additional stable focus of encephalomalacia at supe rior posterior right frontal lobe. A shunt traverses the right frontal lobe and traverses the lef t lateral ventricle with its tip approaching the posterior left subinsular region. Hardware associated with prior facial fr actures about maxillary regions appear stable. Well aerated paranasal sinuses and mastoid air cells. Intracranial arterial calcifications. IMPRESSION: No acute intracranial findings. Abdoulaye Calderón M.D., Ph.D. IMG CT PROCEDURES (ABNORMAL) Basic Metabolic Panel (09/03/2021 5:07 AM CDT) athologist Signature Potassium, S 3.9 3.6 - 5.2 09/03/2021 DTL mmol/L 6:35 AM CDT Sodium, S 143 135 - 145 09/03/2021 DTL mmol/L 6:35 AM CDT Chloride, S 106 98 - 107 09/03/2021 DTL mmol/L 6:35 AM CDT Bicarbonate, S 27 22 - 29 09/03/2021 DTL mmol/L 6:35 AM CDT Anion Gap 10 7 - 15 09/03/2021 DTL 6:35 AM CDT BUN (Blood Urea 8 6 - 21 09/03/2021 DTL Nitrogen), S mg/dL 6:35 AM CDT Creatinine 0.61 0.59 - 09/03/2021 DTL 1.04 mg/dL 6:35 AM CDT eGFR-Non 89 >=60 09/03/2021 DTL Black/ mL/min/BSA 6:35 AM CDT Swedish Comment: ----ADDITIONAL INFORMATION---- Estimated GFR calculated using the 2009 CKD_EPI creatinine equation. eGFR-Black/ >90 >=60 mL/min/BSA 2021 6:35 AM CDT DTL Comment: ----ADDITIONAL INFORMATION---- Estimated GFR calculated using the 2009 CKD_EPI creatinine equation. Calcium, Total, S 8.5 (L) 8.8 - 10.2 mg/dL 09/03/2021 6:35 AM CDT DTL Glucose, S 111 70 - 140 mg/dL 09/03/2021 6:35 AM CDT D TL Specimen Anatomical Collection Method Collection Time Receive d Time (Source) Location / / Volume Laterality Blood (Blood, 09/03/2021 5:07 AM 09/04/19 5:46 Venous) CDT AM CDT Abdoulaye Calderón M.D., Ph.D. LAB BLOOD ADD-ON Performing Organization Address City/State/ZIP Code Phon e Number [facility] - [address] [place] [phone] [facility] [place] [address] [facility] [address] [facility] (ABNORMAL) CBC with Differential, Blood (09/03/2021 5:07 AM CDT) [facility] Method Time Signature Hemoglobin 11.2 (L) 11.6 - 09/03/2021 DTL 15.0 g/dL 5:39 AM CDT Hematocrit 32.9 (L) 35.5 - 09/03/2021 DTL 44.9 % 5:39 AM CDT Erythrocytes 3.25 (L) 3.92 - 09/03/2021 DTL 5.13 5:39 AM CDT x10(12)/L MCV 101.2 (H) 78.2 - 09/03/2021 DTL 97.9 fL 5:39 AM CDT RBC Distrib Width 14.0 12.2 - 09/03/2021 DTL 16.1 % 5:39 AM CDT Platelet Count 254 157 - 371 09/03/2021 DTL x10(9)/L 5:39 AM CDT Leukocytes 11.8 (H) 3.4 - 9.6 09/03/2021 DTL x10(9)/L 5:39 AM CDT Neutrophils 9.41 (H) 1.56 - 09/03/2021 DTL 6.45 5:39 AM CDT x10(9)/L Lymphocytes 1.12 0.95 - 09/03/2021 DTL 3.07 5:39 AM CDT x10(9)/L Monocytes 1.17 (H) 0.26 - 09/03/2021 DTL 0.81 5:39 AM CDT x10(9)/L Eosinophils 0.03 0.03 - 09/03/2021 DTL 0.48 5:39 AM CDT x10(9)/L Basophils 0.05 0.01 - 09/03/2021 DTL 0.08 5:39 AM CDT x10(9)/L Specimen Anatomical Collection Method Collection Time Receive d Time (Source) Location / / Volume Laterality Blood (Blood, 09/03/2021 5:07 AM 09/04/19 22 5:33 Venous) CDT AM CDT Abdoulaye Calderón M.D., Ph.D. LAB BLOOD ADD-ON Performing Organization Address City/State/ZIP Code Phon e Number [facility] - [address] [place], [place] [phone] [facility] [place] [address] [facility] [address] Dx Spine 1 View (09/02/2021 9:11 AM CDT) Anatomical Region Laterality Modality Spine, Musculoskeletal RST LOS, Neuroradiology ARZ N/A Digital Radiography LOS, Muskuloskeletal FLA LOS Specimen (Source) Anatomical Collection Method Collection Time Re ceived Time Location / / Volume Laterality 09/02/2021 9:19 AM CDT Impressions 09/02/2021 9:26 AM CDT A single lateral intraoperative image was obtained for localization. The surgical instrument appears to overly the posteri or spinous process of L5. Narrative 09/02/2021 9:26 AM CDT EXAM: ??DX SPINE 1 VIEW Procedure Note Ciara Sousa M.D. - 09/02/2021Formatt ing of this note might be different from the original. EXAM: DX SPINE 1 VIEW IMPRESSION: A single lateral intraoperative image wa s obtained for localization. The surgical instrument appears to overly the posteri or spinous process of L5. Abdoulaye Calderón M.D., Ph.D. 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) documented in this encounter Admitting Diagnoses Diagnosis Stenosis Spinal Stenosis Spinal Lumbar With Neurogenic C laudication documented in this encounter Administered Medications Inactive Administered Medications - up to 3 most recent administrations Medication Order MAR Action Action Date Dose Rate Site acetaminophen injection 1,000 New Bag 09/02/2021 11:07 AM 1,000 mg 400 mL/hr mg CDT 1,000 mg, intravenous, at 400 mL/hr, Administer over 15 Minutes, Once as needed, other, If patient has not received in previous 6 hours, Starting on 09/02/21 at 1044, For 1 dose, PACU (only), Oral unless RASS less than -1 or nausea/vomiting. Do not use if given in last 6 hours, Restriction Criteria (Pharmacy will review and approve if criteria met): Unable to take or tolerate medications administered via the enteral route or orally (not just NPO) acetaminophen tablet 1,000 mg (TYLENOL) Given 09/04/2021 11:16 AM CDT 1,000 mg 1,000 mg, oral, 4 times daily, First dose on 09/02/21 at 1700, If patient tolerating oral fluids or has a gastric tube, discontinue injectable opioid and begin this order Given 09/04/2021 8:20 AM CDT 1,000 mg Given 09/03/2021 8:14 PM CDT 1,[address] tablet 81 mg Given 09/04/2021 5:44 AM CDT 81 mg 81 mg, oral, Daily, First dose on Vane 09/03/21 at 0600, Swallow whole. Do NOT crush, chew, or split tablet. Given 09/03/2021 6:12 AM CDT 81 mg bisacodyL suppository 10 mg (DULCOLAX) 10 mg, rectal, Daily PRN, constipation, Starting on Tue09/02/21 at 1211, Ordered sequence of administration: polyethylene glycol, then bisacodyl until BM achieved. calcium carbonate chewable tablet 400 mg of calcium (TUMS) 400 mg of calcium, oral, Every 4 hours P RN, heartburn, indigestion, Starting on Tue09/02/21 at 1211, Doses listed are in mg of elemental calcium. Take with food. 500 mg calcium carbonate contains 200 mg of elemental calc ium. carBAMazepine 12 hr capsule 100 mg Given 09/04/2021 5:46 AM CDT 100 mg (CARBATROL) 100 mg, oral, 2 times daily, First dose on Tue09/03/21 at 0600, Do NOT crush or chew. Capsule may be opened and the contents taken without crushing or chewing. Given 09/03/2021 6:08 PM CDT 100 mg Given 09/03/2021 6:10 AM CDT 100 mg carBAMazepine 12 hr capsule 400 mg Given 09/04/2021 5:42 AM CDT 400 mg (CARBATROL) 400 mg, oral, 2 times daily, First dose on Tue09/03/21 at 0600, Do NOT crush or chew. Capsule may be opened and the contents taken without crushing or chewing. Given 09/03/2021 6:12 PM CDT 400 mg Given 09/03/2021 6:07 AM CDT 400 mg cefadroxil capsule 500 mg (DURICEF) Given 09/04/2021 8:20 AM CDT 500 mg 500 mg, oral, 2 times daily, First dose on Tue09/03/21 at 0900, Indications: Prophylaxis, surgical Given 09/03/2021 8:14 PM CDT 500 mg Given 09/03/2021 11:18 AM CDT 500 mg ceFAZolin in dextrose (iso-os) IVPB 2 New Bag 09/02/2021 11:56 PM CDT 2 g 200 mL/hr g (ANCEF) 2 g, intravenous, at 200 mL/hr, Administer over 30 Minutes, Every 8 hours, First dose on Tue09/02/21 at 1630, For 2 doses, Start within 8 hours of last IV dose., Drug Monitoring Program: Pharmacist to adjust medication dosing based on indication and drug clearance factors., Indications: Prophylaxis, surgical New Bag 09/02/2021 5:41 PM CDT 2 g 200 mL/hr D5W infusion 10-250 mL/hr, intravenous, As needed, Medications Inco mpatible with 0.9% NaCL, Starting on Tue09/02/21 at 1353, Infuse at the same ra te as the piggyback until tubing clears or up to a volume of 20 mL pre and post infusion for medications incompatible with 0.9% NaCL. Use 100 mL bag then disca rd. fentaNYL injection 25 mcg (SUBLIMAZE) 25 mcg, intravenous, Every 3 hours PRN, severe pain or score 7-10 of 10, Starting on Tue09/02/21 at 1211, For 3 doses, For breakthrough pain unrelieved 30 minutes after PRN pain medication is used. May a dminister IV pain medication concurrently with PRN oral medication if pain is grea ter than or equal to 7 in order to provide immediate relief. folic acid tablet 1,000 mcg Given 09/04/2021 5:45 AM CDT 1,000 mcg 1,000 mcg, oral, Daily, First dose on Tue09/03/21 at 0600 Given 09/03/2021 6:11 AM CDT 1,000 mcg heparin (porcine) Given 09/04/2021 2:42 PM CDT 5,000 Units Left Lower Abdomen injection 5,000 Units 5,000 Units, subcutaneous, Every 8 hours scheduled, First dose on Tue09/04/21 at 1400 hydrALAZINE tablet 25 mg (APRESOLINE) 25 mg, oral, Every 6 hours PRN, high blood pressure; s ee admin instructions, Starting on Tue09/02/21 at 1211, Hold for heart rate g reater than 100 bpm. Keep systolic blood pressure less than 160 mmHg. lactated ringers New Bag 09/02/2021 7:17 PM CDT 75 mL/hr 75 mL/hr 75 mL/hr, intravenous, Continuous, Starting on Tue09/02/21 at 1915, For 10 hours levETIRAcetam tablet 250 mg (KEPPRA) Given 09/02/2021 12:40 PM CDT 250 mg 250 mg, oral, Once, On Tue09/02/21 at 1145, For 1 dose, PACU & Post-Op levETIRAcetam tablet 250 mg (KEPPRA) Given 09/04/2021 11:16 AM CDT 250 mg 250 mg, oral, Daily, First dose on Tue09/02/21 at 1445 Given 09/03/2021 11:18 AM CDT 250 mg levETIRAcetam tablet 500 mg (KEPPRA) Given 09/04/2021 5:46 AM CDT 500 mg 500 mg, oral, 2 times daily, First dose on Tue09/03/21 at 0600 Given 09/03/2021 6:09 PM CDT 500 mg Given 09/03/2021 6:09 AM CDT 500 mg melatonin tablet 3 mg Given 09/03/2021 8:14 PM CDT 3 mg 3 mg, oral, Bedtime PRN, sleep, Starting on Tue09/03/21 at 1923 menthol lozenge 1 lozenge 1 lozenge, oral, As needed, sore throat, throat irritation, Starting on Tue09/02/21 at 1211 methocarbamoL tablet 750 mg (ROBAXIN) Given 09/04/2021 11:48 AM CDT 750 mg 750 mg, oral, Every 6 hours, First dose on Tue09/02/21 at 1230 Given 09/04/2021 5:46 AM CDT 750 mg Given 09/03/2021 11:44 PM CDT 750 mg NaCl 0.9% infusion 10-250 mL/hr, intravenous, As needed, Be tween Consecutive Piggyback Medications, Starting on Tue09/02/21 at 1353, Infuse at the same ra te as the piggyback until tubing clears or up to a volume of 20 mL . Select for IV medication administration when no maintenance IV available or when IV medication s are not compatible with maintenance fluid. NaCl 0.9% infusion 10-250 mL/hr, intravenous, As needed, Post Medications (Hazardous/Low Fluid Volume), Starting on Tue09/02/21 at 1353 , Infuse at the same rate as the medication until tubing cleared of medication, then discard. naloxone injection 0.2 mg (NARCAN) 0.2 mg, intravenous, As needed, respirat ory depression, Starting on Tue09/02/21 at 1211, For respiratory rate less than 8 b reaths per minute or RASS score of -3, -4, -5. Apply oxygen to keep oxygen saturati ons greater than 90% and notify service. oxyCODONE IR tablet 10 mg (ROXICODONE) Given 09/04/2021 9:16 AM CDT 10 mg 10 mg, oral, Every 6 hours PRN, severe pain or score 7-10 of 10, or for pain greater than comfort goal, Starting on Tue09/02/21 at 1211 oxyCODONE IR tablet 2.5 mg (ROXICODONE) 2.5 mg, oral, Every 6 hours PRN, moderat e pain or score 4-6 of 10, Starting on Tue09/04/21 at 1147 oxyCODONE IR tablet 5 mg (ROXICODONE) Given 09/04/2021 2:32 AM CDT 5 mg 5 mg, oral, Every 6 hours PRN, moderate pain or score 4-6 of 10, Starting on Tue09/02/21 at 1211 Given 09/03/2021 6:21 PM CDT 5 mg Given 09/03/2021 7:49 AM CDT 5 mg oxyCODONE IR tablet 5 mg (ROXICODONE) 5 mg, oral, Every 6 hours PRN, severe pa in or score 7-10 of 10, or for pain greater than comfort goal, Starting on Tue09/04/21 at 1147 polyethylene glycol powder packet 17 g Given 09/04/2021 5:43 AM CDT 17 g (MIRALAX) 17 g, oral, Daily, First dose on Tue09/03/21 at 0600, Ordered sequence of administration: polyethylene glycol, then bisacodyl until BM achieved. Avoid mixing with starch-based thickened liquids. Given 09/03/2021 6:13 AM CDT 17 g sennosides-docusate sodium 8.6-50 mg per Given 09/04/2021 8:20 A M CDT 1 tablet tablet 1 tablet (SENOKOT-S) 1 tablet, oral, 2 times daily, First dose on Tue09/02/21 at 2100, For constipation. Hold for diarrhea. Given 09/03/2021 8:14 PM CDT 1 tablet Given 09/03/2021 11:19 AM CDT 1 tablet sodium chloride 0.9 % injection 10 mL 10 mL, intravenous, As needed, line care , Peripheral Intravenous Catheter and Rapid Infusion Catheter, Starting on Tue at 1353, Prior to blood sampling, post blood transfusion or post blood sampling. sodium chloride 0.9 % injection 3 mL 3 mL, intravenous, As needed, line care, Peripheral Intravenous Catheter and Rapid Infusion Catheter, Starting on Tue at 1353, Prior to and following infusion and between multiple consecutive infusions. sodium chloride 0.9 % injection 3 mL 3 mL, intravenous, Every 12 hours scheduled, First dos e on Tue09/02/21 at 2100, Peripheral Intravenous Catheter and Rapi d Infusion Catheter: When no infusion to maintain patency. documented in this encounter Active and Recently Administered Medications Times are shown in CDT. Scheduled Medication Order 09/02/2021 09/03/2021 09/04/2021 acetaminophen tablet 1,000 mg (TYLENOL) 1742 (Given - Provider: Susan Burns RMyeshaN.)2113 (Given - Provider: Ingrid Sin R.N.) 0749 (Given - Provider: Kenya Garcia R.N.)1158 (Given - Provider: Niyah Lr R.N.)1808 (Given - Provider: Roxana Dowling RMyeshaNMyesha, ONC)2013 (Given - Provider: Ingrid Sin R.N.) 0820 (Given - Provider: Vi moody R.N.)1116 (Given - Provider: Vi Arboleda R.N.) 1,000 mg, oral, 4 times daily, First dos e on Tue09/02/21 at 1700, If patient tolerating oral fluids or has a gastric tube, discontinue injectable opioid and begin this order aspirin DR tablet 81 mg (CANCELED) 0612 (Given - Provider: Ingrid Sin R.N.) 0544 (Given - Provider: Ingrid Sin R.N.) 81 mg, oral, Daily, First dose on Vane at 0600, Swallow whole. Do NOT crush, chew, or split tablet. atorvastatin tablet 10 mg (LIPITOR) 10 mg, oral, Every 48 hours, First dose on Tue09/04/21 at 1800 carBAMazepine 12 hr capsule 100 mg (CARBATROL) 0610 (Given - Provider: Ingrid Sin R.N.)180 (Given - Provider: Roxana Dowling R.N., ONC) 0546 (Given - Provider: Aleksandar NogueiraNMyesha) 100 mg, oral, 2 times daily, First dose on Tue09/03/21 at 0600, Do NOT crush or chew. Capsule may be opened and the contents taken without crushing or chewing. carBAMazepine 12 hr capsule 400 mg (CARBATROL) 0607 (Given - Provider: Ingrid Sin R.N.)181 (Given - Provider: Roxana Dowling R.N., ONC) 0542 (Given - Provider: Aleksandar NogueiraNMyesha) 400 mg, oral, 2 times daily, First dose on Tue09/03/21 at 0600, Do NOT crush or chew. Capsule may be opened and the contents taken without crushing or chewing. cefadroxil capsule 500 mg (DURICEF) (CANCELED) 1118 (Given - Provider: Kenya Garcia RMyeshaNMyesha)2013 (Given - Provider: Ingrid Sin RJoey) 0820 (Given - Provider: Vi Arboleda RMyeshaNMyesha) 500 mg, oral, 2 times daily, First dose on Tue09/03/21 at 0900, Indications: Prophylaxis, surgical ceFAZolin in dextrose (iso-os) IVPB 2 g (ANCEF) (COMPL ETED) 1653 (New Bag - Provider: Susan Burns RMyeshaNMyesha)2010 (New Bag - Provider: Ingrid Sin RMyeshaNMyesha) 2 g, intravenous, at 200 mL/hr, Administ er over 30 Minutes, Every 8 hours, First dose on Tue09/02/21 at 1630, For 2 doses, Start within 8 hours of last IV dose., Drug Monitoring Program: Pharmacist to a djust medication dosing based on indicat ion and drug clearance factors., Indications: Prophylaxis, surgical ceFAZolin injection 2,000 mg (ANCEF) (COMPLETED) 0845 (Given - Provider: Bibiana Arrington APRN, HOTEL ADMINISTRATIVE ASSISTANT, MNA) 2,000 mg (rounded from 1,815 mg = 25 mg/ kg ? 72.6 kg), intravenous, Once, On Tue09/02/21 at 0730, For 1 dose, Intra-Op, Preoperatively within 1 hour prior to surgical incision If needed, reconstitute v ial per package insert instructions. See IVAG for administration guidelines. , Drug Monitoring Program: Pharmacist to adjust medication dosing based on indication and drug clearance factors., Indications: Prophylaxis, surgical folic acid tablet 1,000 mcg 0611 (Given - Provid er: Ingrid Sin R.N.) 0545 (Given - Provider: Ingrid Sin R.N.) 1,000 mcg, oral, Daily, First dose on Tue09/03/21 at 0600 heparin (porcine) injection 5,000 Units 1442 (Given - Provider: Vi Arboleda R.N.) 5,000 Units, subcutaneous, Every 8 hours scheduled, First dose on Tue09/04/21 at 1400 levETIRAcetam tablet 250 mg (KEPPRA) (COMPLETED) 1240 (Given - Provider: Jordyn Figueroa R.N., C.M.S.R.N.) 250 mg, oral, Once, On Tue09/02/21 at 1145, For 1 dose, PACU & P ost-Op levETIRAcetam tablet 250 mg (KEPPRA) 1506 (Not Given - Provider: Jordyn Figueroa R.N., C.M.S.R.N. - Reason: Other - Comment: gave 250mg earlier) 1118 (Given - Provider: Kenya Garcia RMyeshaNMyesha) 1116 (Given - Provider: Vi Arboleda R.N.) 250 mg, oral, Daily, First dose on Tue09/02/21 at 1445 levETIRAcetam tablet 500 mg (KEPPRA) 060 9 (Given - Provider: Ingrid Sin R.N.)1809 (Given - Provider: Roxana Dowling R.N., ONC) 0546 (Given - Provider: Ingrid Sin R.N.) 500 mg, oral, 2 times daily, First dose on Tue09/03/21 at 0600 methocarbamoL tablet 750 mg (ROBAXIN) 1240 (Given - Pr ovider: Jordyn Figueroa R.N., C.M.S.R.N.)1742 (Given - Provider: Susan Burns RMyeshaNMyesha)2355 (Given - Provider: Ingrid Sin R.N.) 0608 (Given - Provider: Vivek Nogueira.Jasper.)1158 (Given - Provider: Niyah Lr RMyeshaNMyesha)1808 (Given - Provider: Roxana Dowling R.N., ONC)2344 (Given - Provider: Ingrid Sin R.N.) 0546 (Given - Provider: Ingrid Sin R.N.)1148 (Given - Provider: Vi Arboleda R.N.) 750 mg, oral, Every 6 hours, First dose on Tue09/02/21 at 1230 polyethylene glycol powder packet 17 g (MIRALAX) 0613 (Given - Provider: Aleksandar NogueiraN.) 0543 (Given - Provider: Ingrid Sin R.N.) 17 g, oral, Daily, First dose on 08/12 at 0600, Ordered sequence of administration: polyethylene glycol, then bisacodyl until BM achieved. Avoid mixing with starch-based thickened liquids. sennosides-docusate sodium 8.6-50 mg per tablet 1 tabl et (SENOKOT-S) 2113 (Given - Provider: Ingrid Sin RMyeshaN.) 111 (Given - Provider: Kenya Garcia R.N.)2013 (Given - Provider: Ingrid Sin R.N.) 0820 (Given - Provider: Vi Arboleda R.N.) 1 tablet, oral, 2 times daily, First dos e on Tue09/02/21 at 2100, For constipation. Hold for diarrhea. sodium chloride 0.9 % injection 3 mL 2119 (Not Given - Provider: Ingrid Sin R.N. - Reason: Other - Comment: Fluids infusing) 0958 (Not Given - Provider: Kenya Garcia R.N. - Reason: Loss of IV access)2015 (Not Given - Provider: Ingrid Sin R.N. - Reason: Loss of IV access) 0900 (Canceled Entry - Provider: Vi Arboleda R.N. - Comment: no PIV) 3 mL, intravenous, Every 12 hours schedu led, First dose on Tue09/02/21 at 2100, Peripheral Intravenous Catheter and Rapid Infusion Catheter: When no infusion to maintain patency. Continuous Medication Order 09/02/2021 09/03/2021 09/04/2021 lactated ringers () 1917 (New Bag - Provider: Ingrid Sin R.N.) 0338 (Stopped - Provider: Ingrid Sin R.N.) 75 mL/hr, intravenous, Continuous, Start ing on Tue09/02/21 at 1915, For 10 hours phenylephrine 80 mcg/mL in NaCl 0.9% 250 mL infusion ( CANCELED) 0837 (New Bag - Provider: Bibiana Arrington APRN, CRNA, HEATHER)0915 (Rate/Dose Change - Provider: Shannan Vieyra APRN, CRNA)0925 (Rate/Dose Change - Provider: Bibiana Arrington APRN, CRNA, HEATHER) 0-1 mcg/kg/min ? 72.6 kg Dosing weight (0-54.45 mL/hr), intravenous, Continuous, Starting on Tue09/02/21 at 0715, Intra-Op, 20 mg in 250 mL, Patient Type: Standard, initiate at: Other, Rate: Per Provid 1017 (Rate/Dose Change - Provider: Isra Arrington APRN, [place], [place])1034 (Stopped - Provider: Bibiana Arrington APRN, [place], [place]) er, Titrate at: Other, Titrate: Per Provider, Goal: Other, Goal: Per Provider PRN Medication Order 09/02/2021 09/03/2021 09/04/2021 acetaminophen injection 1,000 mg (COMPLETED) 1107 (New Bag - Provider: Nara Flynn RMyeshaNMyesha) 1,000 mg, intravenous, at 400 mL/hr, Adm inister over 15 Minutes, Once as needed, other, If patient has not received in previous 6 hours, Starting on Tue09/02/21 at 1044, For 1 dose, PACU (only), Oral un less RASS less than -1 or nausea/vomitin g. Do not use if given in last 6 hours, Restriction Criteria (Pharmacy will review and approve if criteria met): Unable to take or tolerate medications administer ed via the enteral route or orally (not just NPO) bisacodyL suppository 10 mg (DULCOLAX) 10 mg, rectal, Daily PRN, constipation, Starting on Tue09/02/21 at 1211, Ordered sequence of administration: polyethylene glycol, then bisacodyl until BM achieved. calcium carbonate chewable tablet 400 mg of calcium (TUMS) 400 mg of calcium, oral, Every 4 hours P RN, heartburn, indigestion, Starting on Tue09/02/21 at 1211, Doses listed are in mg of elemental calcium. Take with food. 500 mg calcium carbonate contains 200 mg of elemental calcium. ceFAZolin 1 g in NaCl 0.9% irrigation pour bottle (COM PLETED) 5279 (Given - Provider: Abdoulaye Calderón M.D., Ph.D.) irrigation, Once in surgery, OR use only , Starting on Tue09/02/21 at 0722, For 1 dose, Intra-Op, Irrigation Use Only Refrigerate D5W infusion 10-250 mL/hr, intravenous, As needed, Me dications Incompatible with 0.9% NaCL, Starting on Tue09/02/21 at 1353, Infuse at the same rate as the piggyback until tubing clears or up to a volume of 20 mL pr e and post infusion for medications inco mpatible with 0.9% NaCL. Use 100 mL bag then discard. fentaNYL injection 25 mcg (SUBLIMAZE) 25 mcg, intravenous, Every 3 hours PRN, severe pain or score 7-10 of 10, Starting on Tue09/02/21 at 1211, For 3 doses, For breakthrough pain unrelieved 30 minutes after PRN pain medication is used. May administer IV pain medication concurrent ly with PRN oral medication if pain is greater than or equal to 7 in order to provide immediate relief. gelatin sponge,absorb-porcine 50 sponge (GELFOAM) (CAN CELED) 4698 (Given - Provider: Abdoulaye Calderón M.D., Ph.D.) As needed, Starting on Tue09/02/21 at 0947, Intra-Op hydrALAZINE tablet 25 mg (APRESOLINE) 25 mg, oral, Every 6 hours PRN, high blo od pressure; see admin instructions, Starting on Tue09/02/21 at 1211, Hold for heart rate greater than 100 bpm. Keep systolic blood pressure less than 160 mmHg. melatonin tablet 3 mg 2013 (Given - Provider: Ramón Sin R.N.) 3 mg, oral, Bedtime PRN, sleep, Starting on Vane 09/03/21 at 1923 menthol lozenge 1 lozenge 1 lozenge, oral, As needed, sore throat, throat irritation, Starting on Tue09/02/21 at 1211 NaCl 0.9% infusion 10-250 mL/hr, intravenous, As needed, Be tween Consecutive Piggyback Medications, Starting on Tue09/02/21 at 1353, Infuse at the same rate as the piggyback until tubing clears or up to a volume of 20 mL. Select for IV medication administration when no maintenance IV available or when IV medications are not compatible with maintenance fluid. NaCl 0.9% infusion 10-250 mL/hr, intravenous, As needed, Po st Medications (Hazardous/Low Fluid Volume), Starting on Tue09/02/21 at 1353, Infuse at the same rate as the medication until tubing cleared of medication, then discard. naloxone injection 0.2 mg (NARCAN) 0.2 mg, intravenous, As needed, respirat ory depression, Starting on Tue09/02/21 at 1211, For respiratory rate less than 8 breaths per minute or RASS score of - 3, -4, -5. Apply oxygen to keep oxygen saturations greater than 90% and notify service. ondansetron (PF) injection 4 mg (ZOFRAN) 4 mg, intravenous, Every 6 hours PRN, na usea, vomiting, Starting on Tue09/02/21 at 1211, For 48 hours, Reassess for nausea or vomiting after at least 10 minutes. If nausea or vomiting persists administe r next ordered antiemetic medications (o rder for antiemetic medication administration ondansetron then haloperidol then promethazine). oxyCODONE IR tablet 10 mg (ROXICODONE) (CANCELED) 0749 (See Alternative - Provider: Kenya Garcia R.N.)1820 (See Alternative - Provider: Roxana Dowling R.N., ONC) 0232 (See Alternative - Provider: Ingrid Sin R.N.)0916 (Given - Provider: Vi Arboleda R.N.) 10 mg, oral, Every 6 hours PRN, severe p ain or score 7-10 of 10, or for pain greater than comfort goal, Starting on Tue09/02/21 at 1211 oxyCODONE IR tablet 2.5 mg (ROXICODONE)(Linked Group 1) 2.5 mg, oral, Every 6 hours PRN, moderat e pain or score 4-6 of 10, Starting on Tue09/04/21 at 1147 oxyCODONE IR tablet 5 mg (ROXICODONE) (CANCELED) 0749 (Given - Provider: Kenya Garcia R.N.)182 (Given - Provider: Roxana Dowling R.N., ONC) 0232 (Given - Provider: Ingrid Sin RMyeshaNMyesha)0916 (See Alternative - Provider: Vi Arboleda R.N.) 5 mg, oral, Every 6 hours PRN, moderate pain or score 4-6 of 10, Starting on Tue09/02/21 at 1211 oxyCODONE IR tablet 5 mg (ROXICODONE)(Linked Group 1) 5 mg, oral, Every 6 hours PRN, severe pa in or score 7-10 of 10, or for pain greater than comfort goal, Starting on Tue09/04/21 at 1147 promethazine injection 6.25 mg (PHENERGAN) 6.25 mg, intravenous, Every 6 hours PRN, nausea, vomiting, Starting on Tue09/02/21 at 1211, For 48 hours, RASS must be -2 or higher to administer. Reassess for nausea or vomiting after at least 10 minut es. If nausea or vomiting persists admin ister next ordered antiemetic medications (order for antiemetic medication administration ondansetron then haloperidol then promethazine) sodium chloride 0.9 % injection 10 mL 10 mL, intravenous, As needed, line care , Peripheral Intravenous Catheter and Rapid Infusion Catheter, Starting on Tue09/02/21 at 1353, Prior to blood sampling, post blood transfusion or post blood sampling. sodium chloride 0.9 % injection 3 mL 3 mL, intravenous, As needed, line care, Peripheral Intravenous Catheter and Rapid Infusion Catheter, Starting on Tue09/02/21 at 1353, Prior to and following infusion and between multiple consecutive infusions. vancomycin powder 1 g (COMPLETED) 1000 (Given - Provid er: Abdoulaye Calderón M.D., Ph.D.) 1 g, topical, Once in surgery, OR use on ly, Starting on Tue09/02/21 at 0722, For 1 dose, Intra-Op, Do not reconstitute Linked Groups Order Group 1: oxyCODONE IR tablet 2.5 mg (ROXICODONE)Jump to med 2.5 mg, oral, Every 6 hours PRN, moderat e pain or score 4-6 of 10, Starting on Tue09/04/21 at 1147 Or oxyCODONE IR tablet 5 mg (ROXICODONE)Jump to med 5 mg, oral, Every 6 hours PRN, severe pa in or score 7-10 of 10, or for pain greater than comfort goal, Starting on Tue09/04/21 at 1147 documented in this encounter Care Teams Fork Truck Driver Relationship Specialty Start Date End Date Elsewhere, Pcp PCP - General Internal Medicine 09/02/21 documented as of this encounter
--- OUTSIDE RECORDS SUMMARY | 2022-02-18 10:50 | XMS_ITS | Encounter Summary ---
:1945 Author Organization [facility] Address [address] [place] [id number] Care Team Providers Name Role Phone Elsewhere, Pcp Primary Care Provider Unavailable Encounter Details Date Type Department Care Team Description 09/06/2021 Ancillary Procedure Department of Nursing Social History [...] do you attend mormonism or Never 2021 denominational services? Do you belong to any clubs [...] place to sleep or slept in a intermediate (including now)? Education Answer Date Recorded What [...] Diagnosis Comme nts NURSING IMAGE EXAM Routine 09/06/2021 7:00 PM Res ults for this CDT procedure are i n the results section. documented in this encounter Results Back-Nursing Image Exam (09/06/2021 7:00 PM CDT) Specimen (Source) Anatomical Collection Method Collection Time Re ceived Time Location / / Volume Laterality 09/06/2021 6:58 PM CDT Narrative [facility] - 09/06/2021 7:00 PM CDT This order has been created and [...] on filedocumented in this encounter Care Teams Grinder Set Up Operator Relationship Specialty Start Date End Date Elsewhere, Pcp PCP - General Internal Medicine 09/02/21 documented as of this encounter
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
--- OUTSIDE RECORDS SUMMARY | 2022-02-18 10:50 | XMS_ITS | Encounter Summary ---
:1945 Author Organization [facility] Address [address] [place] [address] Care Team Providers Name Role Phone Elsewhere, Pcp Primary Care Provider Unavailable Reason for Visit Auth/Cert Specialty Diagnoses / Procedures Referred By Contact Refer red To Contact Diagnoses Stenosis Spinal Stenosis Spinal [M48.00] Procedures L2-L5 Lumbar laminectomy Referral ID Status Reason Start Date Expiration Date Visits Requ ested Visits Authorized [id number] 1 1 Encounter Details Date Type Department Care Team Description 09/02/2021 Surgery RST ROMB MAIN OR Srinivasa Castellon, L2-L5 Lumbar [address] [facility] M.D. laminectomy. [place], [place] [phone] [facility] [phone] [place] [phone] Social History Tobacco Use Types Packs/Day Years [...] or relatives? How often do you attend nondenominational or Never 2021 restorationist services? Do you belong to any clubs or No 08/26/2021 organizations such as nondenominational groups, unions, fraternal or athletic groups, or [...] Sign Reading Time Taken Comments Blood Pressure 104/63 09/02/2021 11:30 AM CDT Pulse 72 09/02/2021 11:30 AM CDT Temperature 36.4 ??C (97.5 ??F) 09/02/2021 11:03 AM CDT Respiratory Rate 15 09/02/2021 11:30 AM CDT Oxygen Saturation 96% 09/02/2021 11:30 AM CDT Inhaled Oxygen Concentration - - Weight 72.6 kg (160 lb) 09/02/2021 7:03 AM CDT Height 172.7 cm (5' 8) 09/02/2021 7:03 AM CDT Body Mass Index 24.33 09/02/2021 7:03 AM CDT documented in this encounter Discharge Summaries Abdoulaye Calderón M.D., Ph.D. - 09/04/2021 2:11 PM CDT DISCHARGE SUMMARY BRIEF OVERVIEW Hospital: [facility] Discharge Provider: Srinivasa Casteloln M.D. Primary Team: RST Neurologic Surgery - Cande Primary Care Providers: [...] Location 09/02/2021 L2-L5 Lumbar laminectomy. Srinivasa Castellon M.D.Abdoulaye Calderón M.D., Ph.D. RST ROMB OR DISCHARGE DISPOSITION Rehab Facility [[id number]] [...] and was dismissed to inpatient rehabilitation at [facility]. CONSULTS ORDERED DURING THIS ADMISSION IP CONSULT [...] month progress report. Please contact Dr. Castellon's mechanical detailer at [phone] (8 a.m. - 5 p.m. on business days). documented in this encounter Medications at [...] PT Plan Comments Patient to discharge to [facility] inpatient rehabilitation facility. Patient will continue skilled therapy services. Goals set during this episode of care will continue to be addressed at next level of care. Tiff Cordova M.D. - 09/04/2021 1:12 PM CDT Facility Information: [facility] Physical Medicine and Rehabilitation Pre-Admission Screening Patient Information Patient Name: Aurora Langley [address]: [address] [place] [id number] Sex: Female Date of : 1945 Age: [...] Illness: Ms. Langley is a 76 y.o. Finnish speaking female from [place], [place] with history of TBI in 1995 [...] buckling during the transfer despite having her Nicaraguan knee cage and right AFO donned. At baseline, prior to surgery the patient was requiring minimal assistance for all transfers, stairs and ADLs from her . 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 She also has bathroom equipment and mostly uses a wheelchair within her home for mobility. 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 Over the last 5-8 years she has [...] bars around toilet Prior Function Level of [place]: Needs assistance with ADLs; Needs assistance with homemaking (functional decline since 06/2021 per documentation.) Lives With: Spouse Receives Help From: Family ADL Assistance: Required assistance IADL/Homemaking Assistance: Required assistance Driving: Does not drive Special Rehabilitation Needs Special Rehabilitation Needs Miscellaneous Devices: Brace Requires modified schedule: No Language used during interpretation: Other (Comment) (Finnish) Precautions Precautions Precautions: Spinal precautions, Seizure precautions [...] Therapy, Occupational Therapy, Speech Therapy, Recreational Therapy, Emergency Medicine, Director Of First Impressions, Rehabilitation Psychology, Bowel and Bladder Management, Improvement Coordinator, and English Instructor Services Anticipated Services Upon Discharge Anticipated Interventions [...] 01 - Home (private home/apartment, assisted living, halfway, transitional living) Anticipated Services Upon Discharge Anticipated Services Upon Discharge: Outpatient Therapy Learning Assessment Questions Primary Learner Name: Aurora Relationship: Patient Does the primary learner have any barriers to learning?: Language, Cognitive What is the preferred language of the primary learner for medical teaching?: Other (Comment) Comment: Finnish Is an manager social services required?: No Comment: Her states, she understands, seems there is some expressve aphasia How does the primary learner prefer to learn new concepts?: Demonstration / Seeing, Pictures / Videos, Reading, Listening Co-Learner Name (if applicable): Kirk Relationship: Patient Does the co-learner have any barriers to learning?: No Barriers What is the preferred language of the co-learner for medical teaching?: Other (Comment), Bruneian Is an manager social services required?: No Comment: Her states, she understands, seems there is some expressve aphasia How does the co-learner prefer to learn new concepts?: Listening, Reading, Doing Information Brochures Given: Data Collection Information Summary for Patients in Inpatient Rehabilitation Facilities, Inpatient Rehabilitation Programs [id number], Spinal Cord Rehabilitation [id number] Tiff Cordova M.D. IET Shannan Huff CRRN - 09/04/2021 12:07 PM [...] status this morning which include cognition and ASSISTANT FINANCIAL ACCOUNTANT shunt. We discussed tranfer to [facility] would [...] CM to notify them of the transfer. LET Tiff Cordova M.D. - 09/04/2021 11:49 AM [...] %] 96 % Physical Exam: assisted with Finnish interpretation at bedside. GENERAL: Awake, Alert. No acute distress. Laying in hospital bed, resting comfortably. HEENT: Palpable right sided shunt with tubing. Conjugate gaze. Mild right facial asymmetry at rest but improves with smile. LUNGS: Unlabored breathing pattern. Normal rate. Tolerating room air. ABDOMEN: Soft, nontender, nondistended. EXTREMITIES:Right vincentian brace and ankle brace and shoes in place. MENTAL STATUS: Oriented to self and situation. Answers simple questions appropriately MOTOR SPEECH: Slowed rate, intelligible. LANGUAGE: Increased response latency. Expressive aphasia. Basic comprehension appears intact. Follows simple gross motor commands without cues. Required kntj-orxz-pibu assistance to show left thumbs upor show [...] fall precautions, medication management, sleep regulation. Mrs Todd's is below her previous functional baseline. She [...] Regular diet. Activity as tolerated. PMR/PT/OT. SCDs. SQ this evening. -Dispo: General Care status. PMR consulted for consideration of inpatient rehabilitation. Medically stable for transfer to inpatient rehabilitation if accepted. 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 Castellon's service at [phone] Bon Calderón M.D., Ph.D. Abdoulaye Calderón M.D., [...] diet. Activity as tolerated. PMR/PT/OT. SCDs. Holding [facility]. -Dispo: General Care status. PMR consulted for consideration of inpatient rehabilitation. Medically stable for discharge with drain removal this afternoon. 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 Castellon's service at [phone] Bon Calderón M.D., Ph.D. Abdoulaye Calderón M.D., [...] diet. Activity as tolerated. PMR/PT/OT. SCDs. Holding [facility] -Dispo: General Care status. PMR consulted for consideration of inpatient rehabilitation. 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 Castellon's service at [phone] Bon Calderón M.D., Ph.D. Mp Simons, PharmMyeshaD., R.Ph. - 09/02/2021 7:37 AM CDT Images from the original note were not included. Admission Medication History Note Adherence issues: No concerns Medication list source: Patient Medication related information: Prior to Admission Medications Med List Status: Pharmacy Complete Set By: Mp Simons, PharmDenise., R.Ph. at 09/02/2021 7:37 AM Taking? Last [...] SHX (SEE COMMENT) N/A 05/09/1992 >Esophagogastroduodenoscopy (Olympus [id number]) PREMEDICATION: Versed 5 mg, Demerol 100 mg [...] of spouse to return home Patient Comments: husb states she understands kazakh; ?? 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 Bed mob with moderate A of 2 sup=>sit at edge of bed. Unsupported sitting difficult unless feet are on floor. R inattention and R UE in IR/flexed posture (not a fixed position). R LE with vincentian knee cage and ankle brace. Husb will [...] 45 min Kyra Conroy P.T. 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 Langley is a 76 y.o. Finnish speaking female from [place], [place] with history of TBI in 1995 [...] buckling during the transfer despite having her Nicaraguan knee cage and right AFO donned. At baseline, prior to surgery the patient was requiring minimal assistance for all transfers, stairs and ADLs from her . 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 She also has bathroom equipment and mostly uses a wheelchair within her home for mobility. 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 Functional history (chart review): over the last [...] aphasia and language barrier. She has right Nicaraguan knee cage and right ankle-foot orthosis donned. [...] spineconsult service tomorrow. Please contact my pager ([phone]) with questions or concerns. Aida Mckeon D.O. documented in this encounter OR Notes Op Note - Srinivasa Castellon M.D. - 09/02/2021 10:08 AM CDT Operating room 702. PRE-OPERATIVE DIAGNOSIS Gait deterioration. Severe lumbar pseudoclaudication. Severe spinal stenosis L2-L5. POST-OPERATIVE DIAGNOSIS Gait deterioration. Severe lumbar pseudoclaudication. Severe spinal stenosis L2-L5. A nurse first assist actively participated and was necessary for one [...] Srinivasa Castellon M.D. CT CT Job ID: [id number] Brief Op Note - Abdoulaye Calderón M.D., [...] Basic Metabolic Panel (09/03/2021 5:07 AM CDT) P athologist Signature Potassium, S 3.9 3.6 - [...] 09/03/2021 DTL Black/ mL/min/BSA 6:35 AM CDT Cape Verdean Comment: ----ADDITIONAL INFORMATION---- Estimated GFR calculated using [...] Organization Address City/State/ZIP Code Phon e Number [facility] - [address] [place], [place] [address] [facility] [place] [address] [facility] [address] [facility] (ABNORMAL) CBC with Differential, Blood (09/03/2021 5:07 AM CDT) [facility] gist Method Time Signature Hemoglobin 11.2 (L) 11.6 [...] Organization Address City/State/ZIP Code Phon e Number [facility] - [address] [place], [place] [address] [facility] [place] [address] [facility] [address] [facility] Dx Spine 1 View (09/02/2021 9:11 AM [...] Calderón M.D., Ph.D. IMG DIAGNOSTIC IMAGING PROCE SHIVAMBER documented in this encounter Visit Diagnoses Diagnosis Stenosis Spinal - Primary Decline Functional Status Contracture Hand Joint Right Injury Brain Traumatic Personal History Injury Intracranial Brain Sequela (HCC) Stenosis Spinal Lumbar With Neurogenic C laudication Stenosis Spinal documented in this encounter Admitting Diagnoses Diagnosis Stenosis Spinal Stenosis Spinal Lumbar With Neurogenic C laudication documented in this encounter Administered Medications Inactive Administered Medications - up to 3 most recent administrations Medication Order MAR Action Action Date Dose Rate Site acetaminophen tablet 1,000 mg Given 09/04/2021 11:16 AM CDT 1,00 0 mg (TYLENOL) 1,000 mg, oral, 4 times daily, First dose on Tue09/02/21 at 1700, If patient tolerating oral fluids or has a gastric tube, discontinue injectable opioid and begin this order Given 09/04/2021 8:20 AM CDT 1,000 mg Given 09/03/2021 8:14 PM CDT 1,000 mg bisacodyL suppository 10 mg (DULCOLAX) 10 [...] Given 09/03/2021 6:07 AM CDT 400 mg ceFAZolin 1 g in NaCl 0.9% irrigation pour Given 09/02 9:51 AM CDT 1,000 mL bottle irrigation, Once in surgery, OR use only, Starting on Tue09/02/21 at 0722, For 1 [...] Given 09/03/2021 6:11 AM CDT 1,000 mcg gelatin sponge,absorb-porcine 50 sponge Given 09/02/2021 9:47 AM CDT 1 each (GELFOAM) As needed, Starting on Tue09/02/21 at 0947, Intra-Op heparin (porcine) Given 09/04/2021 2:42 PM CDT [...] systolic blood pressure less than 160 mmHg. levETIRAcetam tablet 250 mg (KEPPRA) Given 09/04/2021 [...] 90% and notify service. oxyCODONE IR tablet 2.5 mg (ROXICODONE) 2.5 mg, oral, Every 6 hours PRN, moderat e pain or score 4-6 of 10, Starting on Tue09/04/21 at 1147 oxyCODONE IR tablet 5 mg (ROXICODONE) 5 [...] Catheter: When no infusion to maintain patency. vancomycin powder 1 g Given 09/02/2021 10:00 AM CDT 1 g 1 g, topical, Once in surgery, OR use only, Starting on Tue09/02/21 at 0722, For 1 dose, Intra-Op, Do not reconstitute documented in this encounter Active and Recently Administered Medications Times are shown in CDT. Scheduled Medication Order 09/02/2021 09/03/2021 09/04/2021 acetaminophen tablet 1,000 mg (TYLENOL) 174 (Given - Provider: Susan Burns RMyeshaNMyesha)2113 (Given - Provider: Ingrid Sin RJoey) 0749 (Given - Provider: Kenya Garcia R.N.)1158 (Given - Provider: Niyah Lr RMyeshaNMyesha)1808 (Given - Provider: Roxana Dowling RJoey, ONC)2013 (Given - Provider: Ingrid Sin R.N.) 0820 (Given - Provider: Vi moody R.N.)1116 (Given - Provider: Vi Arboleda RMyeshaN.) 1,000 mg, oral, 4 times daily, First dos e on Tue09/02/21 at 1700, If patient tolerating oral fluids or has a gastric tube, discontinue injectable opioid and begin this order aspirin DR tablet 81 mg (CANCELED) 0612 (Given - Provider: Ingrid Sin RFaiza.) 0544 (Given - Provider: Ingrid Sin RMyeshaN.) 81 mg, oral, Daily, First dose on Tue at 0600, Swallow whole. Do NOT crush, chew, or split tablet. atorvastatin tablet 10 mg (LIPITOR) 10 mg, oral, Every 48 hours, First dose on Tue09/04/21 at 1800 carBAMazepine 12 hr capsule 100 mg (CARBATROL) 0610 (Given - Provider: Ingrid Sin R.N.)1808 (Given - Provider: Roxana Dowling RJoey, ONC) 0546 (Given - Provider: Ingrid B Sin, R.N.) 100 mg, oral, 2 times daily, First dose on Tue09/03/21 at 0600, Do NOT crush or chew. Capsule may be opened and the contents taken without crushing or chewing. carBAMazepine 12 hr capsule 400 mg (CARBATROL) 0607 (Given - Provider: Ingrid Sin RMyeshaN.)1812 (Given - Provider: Roxana Dowling R.N., ONC) 0542 (Given - Provider: Ingrid Sin RMyeshaN.) 400 mg, oral, 2 times daily, First dose on Vane 09/03/21 at 0600, Do NOT crush or chew. Capsule may be opened and the contents taken without crushing or chewing. cefadroxil capsule 500 mg (DURICEF) (CANCELED) 1118 (Given - Provider: Kenya Garcia RMyeshaN.)2013 (Given - Provider: Ingrid Sin RMyeshaNMyesha) 0820 (Given - Provider: Vi Arboleda RMyeshaNMyesha) 500 mg, oral, 2 times daily, First dose on Tue09/03/21 at 0900, Indications: Prophylaxis, surgical ceFAZolin in dextrose (iso-os) IVPB 2 g (ANCEF) (COMPL ETED) 5031 (New Bag - Provider: Susan Burns R.N.)2356 (New Bag - Provider: Ingrid Sin RMyeshaNMyesha) [...] 0845 (Given - Provider: Bibiana Arrington APRN, BUSINESS ASSISTANT, MNA) 2,000 mg (rounded from 1,815 [...] R.N., C.M.S.R.N.)1742 (Given - Provider: Susan Burns R.N.)2355 (Given - Provider: Ingrid Sin R.N.) 0608 (Given - Provider: Ingrid Sin R.N.)1158 (Given - Provider: Aleksandar StrongNMyesha)1808 (Given - Provider: Roxana Dowling R.N., ONC)2344 (Given - Provider: Ingrid Sin R.N.) 0546 (Given - Provider: Ingrid Sin R.N.)1148 (Given - Provider: Vi Arboelda R.N.) 750 mg, oral, Every 6 hours, First dose on Tue09/02/21 at 1230 polyethylene glycol powder packet 17 g (MIRALAX) 0613 (Given - Provider: Ingrid Sin R.N.) 0543 (Given - Provider: Ingrid Sin R.N.) 17 g, oral, Daily, First dose on 08/12 at 0600, Ordered sequence of administration: polyethylene glycol, then bisacodyl until BM achieved. Avoid mixing with starch-based thickened liquids. sennosides-docusate sodium 8.6-50 mg per tablet 1 tabl et (SENOKOT-S) 2113 (Given - Provider: Ingrid Sin R.N.) 1119 (Given - Provider: Kenya Garcia R.N.)2013 (Given [...] 1917 (New Bag - Provider: Ingrid Sin RMyeshaNMyesha) 0338 (Stopped - Provider: Ingrid Sin R.N.) [...] (Rate/Dose Change - Provider: Isra Arrington APRN, CRNA, HEATHER)1034 (Stopped - Provider: Bibiana Arrington APRN, CRNA, HEATHER) er, Titrate at: Other, Titrate: Per Provider, [...] NaCl 0.9% irrigation pour bottle (COM PLETED) 0984 (Given - Provider: Abdoulaye Calderón M.D., Ph.D.) [...] gelatin sponge,absorb-porcine 50 sponge (GELFOAM) (CAN CELED) 0947 (Given - Provider: Abdoulaye Calderón M.D., Ph.D.) [...] mg 2013 (Given - Provider: Ramón Sin RJoey) 3 mg, oral, Bedtime PRN, sleep, Starting [...] 0749 (See Alternative - Provider: Kenya Garcia RMyeshaNMyesha)1821 (See Alternative - Provider: Roxana Dowling R.N., ONC) 0232 (See Alternative - Provider: Ingrid B Sin, R.N.)0916 (Given - Provider: Vi Arboleda RJoey) 10 mg, oral, Every 6 hours PRN, severe p ain or score 7-10 of 10, or for pain greater than comfort goal, Starting on Tue09/02/21 at 1211 oxyCODONE IR tablet 2.5 mg (ROXICODONE)(Linked Group 1) 2.5 mg, oral, Every 6 hours PRN, moderat e pain or score 4-6 of 10, Starting on Tue09/04/21 at 1147 oxyCODONE IR tablet 5 mg (ROXICODONE) (CANCELED) 0774 (Given - Provider: Kenya Garcia RMyeshaN.)7556 (Given - Provider: Roxana Dowling RJoey, ONC) 0232 (Given - Provider: Ingrid Sin [...] 1147 documented in this encounter Care Teams Controls Operator Molded Goods Relationship Specialty Start Date End Date Elsewhere, Pcp PCP - General Internal Medicine 09/02/21 documented as of this encounter
--- OUTSIDE RECORDS SUMMARY | 2022-02-18 10:51 | XMS_ITS | Encounter Summary ---
:1945 Author Organization [facility] Address [address] [place] [address] Care Team Providers Name Role Phone Unavailable Primary Care Provider Unavailable Encounter Details Date Type Department Care Team Description 10/06/1995 - Hospital Encounter HX RST MARICHUY MELENDEZ 3 F 12/30/1995 Social History Tobacco Use Types Packs/Day Years Used Date Smoking Tobacco: Never Assessed Alcohol Habits Answer Date Recorded How often [...] or relatives? How often do you attend yarsani or Never 2021 voodoo services? Do you belong to any clubs or No 08/26/2021 organizations such as yarsani groups, unions, fraternal or athletic groups, or [...] or slept in a longterm (including now)? Sex Assigned at Date Recorded Female 08/25/2021 9:30 PM CDT documented as of this encounter Plan of Treatment Not on filedocumented as of this encounter Procedures Procedure Name Priority Date/Time Associated Diagnosis Comme nts HXGENERAL PATHOLOGY Routine 12/14/1995 9:48 AM Re sults for this REPORT CDT procedure are i n the results section. ECG Routine 12/13/1995 4:01 PM Results f or this CDT procedure are i n the results section. documented in this encounter Results Hx general Pathology Report (12/14/1995 9:48 AM CDT) Specimen Anatomical Collection Method Collection Time Receive d Time (Source) Location / / Volume Laterality 12/14/1995 9:48 AM 6 9:48 CDT AM CDT Narrative [facility] - 12/14/1995 9:48 AM CDT [id number] Surgical Pathology Requested By: ? Soren Wylie D.D.S. ? ([id number]) ?? TISSUE DESCRIPTION: ?? Tooth ?? DIAGNOSIS: ?? One tooth identified. (discarded) ?? [id number] ?Teddy Melgoza M.D.:roberth Procedure Note 09/02/2017 [id number] Surgical Pathology Requested By: Soren Wylie D.D.SMyesha ([id number]) TISSUE DESCRIPTION: Tooth DIAGNOSIS: One tooth identified. (discarded) [id number] Teddy Melgoza M.D.:roberth Soren Wylie D.D.S. LAB PATHOLOGY/CYTOLOGY ORDER ASHLEY Performing Organization Address City/State/ZIP Code Phon e Number [facility] - [address] [place], [place] [address] [facility] ECG 12 Lead (12/13/1995 4:01 PM CDT) Specimen (Source) Anatomical Collection Method Collection Time Re ceived Time Location / / Volume Laterality 12/13/1995 4:01 PM CDT Narrative [facility] - 12/13/1995 4:43 PM CDT [id number] 16:01 VENTRICULAR RATE 92 NORMAL SINUS RHYTHM NORMAL ECG WHEN COMPARED WITH ECG OF 26-OCT-1994 11 :17, NO SIGNIFICANT CHANGE WAS FOUND KHAI WEIR ??, ANUJ/ Zheng Procedure Note Provider, Historical - 09/06/2017Formatt ing of this note might be different from the original. [id number] 16:01 VENTRICULAR RATE 92 NORMAL SINUS RHYTHM NORMAL ECG WHEN COMPARED WITH ECG OF 26-OCT-1994 11 :17, NO SIGNIFICANT CHANGE WAS FOUND KHAI WEIR MD, ANUJ/ Zheng Historical Provider ECG ORDERABLES Performing Organization Address City/State/ZIP Code Phon e Number HX [facility] [address] [place] [address], U documented in this encounter Visit Diagnoses Not on filedocumented in this encounter
--- OUTSIDE RECORDS SUMMARY | 2022-02-18 10:51 | XMS_ITS | Encounter Summary ---
:1945 Author Organization [facility] Address [address] [place] [address] Care Team Providers Name Role Phone Unavailable Primary Care Provider Unavailable Encounter Details Date Type Department Care Team Description 11/04/1994 - 11/07/1994 Hospital Encounter HX RST UNIT 64 Social History Tobacco Use Types Packs/Day Years [...] or relatives? How often do you attend jehovah's witness or Never 2021 baptist services? Do you belong to any clubs or No 08/26/2021 organizations such as jehovah's witness groups, unions, fraternal or athletic groups, or [...] or slept in a mcc (including now)? Sex Assigned at Date Recorded Female 08/25/2021 9:30 PM CDT documented as of this encounter Plan of Treatment Not on filedocumented as of this encounter Procedures Procedure Name Priority Date/Time Associated Diagnosis Comme nts HXGENERAL PATHOLOGY Routine 11/04/1994 11:02 AM R esults for this REPORT CDT procedure are i n the results section. documented in this encounter Results Hx general Pathology Report (11/04/1994 11:02 AM CDT) Specimen Anatomical Collection Method Collection Time Receive d Time (Source) Location / / Volume Laterality 11/04/1994 11:02 11/04/1994 AM CDT 11:02 AM CDT Narrative [facility] - 11/04/1994 11:02 AM CDT [id number] Surgical Pathology Requested By: ? Padmaja Umanzor M.D. ? ([id number]) ?? TISSUE DESCRIPTION: ?? Left ovary (3.5 x 2 x 1 cm), and 4 c m segment of left fallopian tube, and right ovary (3.3 x ?? 1.5 x 1.2 cm). ?? [id number] A1, A2, B1 ?? DIAGNOSIS: ?Left tube and ovary: ??Benign simp le cyst (4.7 x 4 x 3.5 cm) of the left ovary is identified. ?? The ovary shows a focus of endometri osis. ??The fallopian tube shows no diagnostic abnormality. ?Right tube and ovary: ??The ovary contains a corpus luteum and a benign serous cyst (1.5 cm). ? The fallopian tube is not identified . ?? [id number] ?Theo Brooks M.D.:rar Procedure Note 09/02/2017 [id number] Surgical Pathology Requested By: Padmaja Umanzor M.D. ([id number]) TISSUE DESCRIPTION: Left ovary (3.5 x 2 x 1 cm), and 4 cm s egment of left fallopian tube, and right ovary (3.3 x 1.5 x 1.2 cm). [id number] A1, A2, B1 DIAGNOSIS: Left tube and ovary: Benign simple cyst (4.7 x 4 x 3.5 cm) of the left ovary is identified. The ovary shows a focus of endometriosi s. The fallopian tube shows no diagnostic abnormality. Right tube and ovary: The ovary contain s a corpus luteum and a benign serous cyst (1.5 cm). The fallopian tube is not identified. [id number] Theo Brooks M.D.:rar C. Jose Umanzor M.D. LAB PATHOLOGY/CYTOLOGY ORDER ASHLEY Performing Organization Address City/State/ZIP Code Phon e Number [facility] [address] [place], [place] [address] [facility] documented in this encounter Visit Diagnoses Not on filedocumented in this encounter
--- OUTSIDE RECORDS SUMMARY | 2022-02-18 10:51 | XMS_ITS | Encounter Summary ---
:1945 Author Organization [facility] Address [address] [place] [address] Care Team Providers Name Role Phone Unavailable Primary Care Provider Unavailable Reason for Visit Outpatient (Routine) - Closed Specialty Diagnoses / Procedures Referred By Contact Refer red To Contact Neurological Surgery Diagnoses [facility]enosis [facility] [address] [place] [phone] Referral ID Status Reason Start Date Expiration Date Visits Requ ested Visits Authorized [id number] Closed 08/13/2021 08/13/2022 1 1 Encounter Details Date Type Department Care Team Description 08/28/2021 Comprehensive Visit Department of Srinivasa Castellon [facility] Spinal Neurologic Surgery [place], [place] [address] [place] [address] [place] [phone] Social History Tobacco Use Types Packs/Day Years Used Date Smoking Tobacco: Never Smokeless Tobacco: Never Alcohol Habits Answer Date Recorded How often [...] or relatives? How often do you attend buddhism or Never 2021 congregational services? Do you belong to any clubs or No 08/26/2021 organizations such as buddhism groups, unions, fraWatchDox or athletic groups, or school groups? How [...] place to sleep or slept in a alf (including now)? Education Answer Date Recorded What is the highest level of Professional school degree (e.g ., , 08/25/2021 school you have completed or the DDS, DVM, ROSALVA) highest degree you have received? Sex Assigned at Date Recorded Female 08/25/2021 9:30 PM CDT documented as of this encounter Consult Notes Srinivasa Castellon M.D. - 08/28/2021 2:00 PM CDT This is a 76-year-old woman, known to me from previous chart consultation on August 04. Because of the complexity of her history and neurologic injury, we had ordered a Neurology consultation to serve as a baseline examination, and to hopefully exclude any intracranial or cervical source for her progressive gait decline. Dr. Ruiz was kind enough to evaluate the patient, and from her assessment,as best she can tell, the central nervous system is not the source of her decline, either intracranially, or from her MRI depicted cord compression without signal change in the lower cervical segments.Her EMG is normal, but this does not exclude a dynamic cauda compression with ambulation. I reviewedthese in detail with the patient, and more importantly, her - Dr. Langley. The only treatable cause I can see for her progressive gait decline, is the severe lumbar spinal stenosis as read by Radiology, from L2 through L5 in the lumbar spine. With this in mind, informed consent took place with the patient and of course her . Informed consent: Using the spine model an MRI for anatomic detail, and our educational material, I discussed the risks goals and alternatives frankly with the patient and her , of an L2 throughL5 decompressive lumbar laminectomy. The time in surgery, hospital, and likely stay for 2-3 weeks in rehab or custodial facility were reviewed in detail. I also discussed the usual pain management after this procedure, and restrictions generally the aftermath. I quoted them a 50% chance this would be contributing to her gait decline, and he would notice some improvement in 4-6 weeks after surgery and consider the operation successful. There is a 50% chance this operation will not benefit her in any way. The risks of the procedure, would be a 1-2% chance of a root injury, giving her more pain, numbness,or weakness, and 1 leg or the other on a permanent basis; a 2-3% chance of wound complication, such as CSF leak or infection, that may require further aggressive management strategies. It is noteworthy, that if she had a spinal fluid leak, given the previous significant brain injury, it could induce aremote hemorrhage in the brain from a spinal fluid leak. There is a 1 in several 100 chance of a cauda equina injury, that would leave her wheelchair- bound for life and all the ramifications thereof; a1 in 10,000 chance of blindness in both eyes, a sequelae to lumbar laminectomy for ill-defined reason s; and a 3-5% chance this operation would make her unstable, requiring yet another operation for fusion. Given her seizure disorder, there is also a chance she could have a seizure after general anesthesia, and all the ramifications thereof. All questions were answered, the barrier of her language deficits were overcome by the presence of her , and as a couple they fully understand. The surgical consent form was signed and witnessed, and will be scanned into her records today. The roles and responsibilities of my surgical team members were also discussed, the fact that this is a teaching Hospital, residents are involved in her care and will participate in her surgery is understood, but I would be performing her surgery. They have chosen a day for surgery next week, and we will make arrangements accordingly. documented in this encounter Plan of Treatment Not on filedocumented as of this encounter Visit Diagnoses Diagnosis Stenosis Spinal documented in this encounter
--- OUTSIDE RECORDS SUMMARY | 2022-02-18 10:51 | XMS_ITS | Encounter Summary ---
:1945 Author Organization [facility] Address [address] [place] [address] Care Team Providers Name Role Phone Unavailable Primary Care Provider Unavailable Reason for Referral Outpatient (Routine) - Closed Specialty Diagnoses / Procedures Referred By Contact Refer red To Contact Diagnoses Stenosis Spinal Lumbar With Neurogenic Claudication Valencia Ruiz D.O. [facility] Procedures EMG [address] [place] [phone] Referral ID Status Reason Start Date Expiration Date Visits Requ ested Visits Authorized [id number] Closed 08/20/2021 08/20/2022 1 1 EXEC Reason for Visit Outpatient (Routine) - Closed Specialty Diagnoses / Procedures Referred By Contact Refer red To Contact Spine Diagnoses Stenosis Spinal Srinivasa Castellon M.D. 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 How often do you attend pentecostal or Never 2021 gnosticist services? Do you belong to any clubs or No 08/26/2021 organizations such as pentecostal groups, unions, fraternal or athletic groups, or [...] or slept in a fpc (including now)? Sex Assigned at Date Recorded Female 08/25/2021 9:30 PM CDT documented as of this encounter Last Filed Vital Signs Vital Sign Reading Time Taken Comments Blood Pressure - - Pulse - - Temperature - - Respiratory Rate - - Oxygen Saturation - - Inhaled Oxygen Concentration - - Weight 72.6 kg (160 lb) 08/20/2021 3:56 PM ACCT EXEC stated Height 172.7 cm (5' 8) 08/20/2021 3:56 PM ACCT EXEC stated Body Mass Index 24.33 08/20/2021 3:56 PM ACCT EXEC documented in this encounter Consult Notes Valencia Ruiz D.O. - 08/20/2021 3:30 PM CST REFERRING PROVIDER Srinivasa Castellon M.D. SUBJECTIVE CHIEF COMPLAINT / REASON FOR VISIT Aurora Langley is a 76 y.o. female who presents for evaluation/consultation of progressive lower extremity weakness, reduced mobility. HISTORY OF PRESENT ILLNESS Aurora Langley presents for spine neurology consultation. History is gleaned from electronic health record. 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 Has been becoming progressively more disabled, increasing difficulty with mobility. The lumbar spineMRI revealed significant spinal stenosis L2 through L5 felt to be possibly causing symptoms of lumbar pseudoclaudication. History is obtained from the patient's . reports that over the last 5-8 years she hashad a very slow progressive decline in her ambulation. Following her traumatic brain injury in 1995,she had regain her ability to ambulate with use of an AFO on the right though never regained meaningful function of her right upper extremity. feels that her legs have gotten weaker including the left leg. Last month, he reports that she lost command of her legs when walking. She has been walking with 's assistance for a longtime. She has not really complained of any pain per , though patient indicates with pointing some discomfort going down the left thigh just past the knee. denies that she has any numbness or tingling. She has worn a diaper during the day and nightfor a long time. feels that her bladder got a little worse after she lost command of her legs last month. She has not noticed any weakness in her left upper extremity. She has been seen in the Neurology Clinic here at [facility] in the past, last seen by epileptologist Dr. Kennedy Romero in 2016. Her epilepsy history is well described in his consultation from June 16, 2016. At that time had a documented history of 2 instances of generalized tonic-clonic status ep ilepticus. Antiseizure medication carbamazepine had been increased and levetiracetam added to medication regimen given the history status epilepticus. According to her seizures are stable. He says her last seizure was some time ago, in 2019. Has Diastat that he gives her for prolonged seizure and has not used for a long time. MEDICATIONS Current Outpatient Medications: ??? aspirin [address] tablet, , Disp: , Rfl: ??? atorvastatin (LIPITOR) 10 mg tablet, every other day., Disp: , Rfl: ??? carBAMazepine (CARBATROL) 100 mg 12 hr capsule, 1 capsule (100 mg total) 2 (two) times a day., Disp: , Rfl: ??? carBAMazepine (CARBATROL) 200 mg 12 hr capsule, Take 400 mg by mouth 2 (two) times a day., Disp:, Rfl: ??? cholecalciferol (VITAMIN D3) 25 mcg (1,000 Unit) capsule, One time per week, Disp: , Rfl: ??? diazePAM (DIASTAT) 2.5 mg rectal kit, Insert 5 mg into the rectum as needed. , Disp: , Rfl: ??? folic acid 1 mg tablet, Take 1 tablet by mouth daily., Disp: , Rfl: ??? levETIRAcetam (KEPPRA) 250 mg tablet, 500 mg in the morning, 250 mg afternoon, 500 mg bedtime , Disp: , Rfl: PROBLEM LIST Patient Active Problem List Diagnosis ??? Epilepsy Seizure Generalized Convulsive (HCC) ??? Stenosis Spinal ??? Injury Brain Traumatic Personal History ??? Contracture Hand Joint Right ??? 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 Injury Intracranial Brain Sequela (HCC) OBJECTIVE Vitals: 08/20/21 1556 Weight: 72.6 kg Height: 172.7 cm Body mass index is 24.33 kg/m??. PHYSICAL EXAM General: Patient is alert, pleasant, well-groomed. Mental Status: Unable to assess. Non fluent aphasia. Difficulty following commands. Behavior is normal. Affect is euthymic. Eyes: Funduscopic examination is deferred. Cranial Nerves: Pupils are equal, round, reactive to light. Visual perez are not reliably testable,she appears to have visual field deficit bilaterally. Extraocular movements are full. Face flattening of the nasal labial fold. Palate elevates symmetrically. Tongue is midline. Shoulder shrug is absent on the right. NEUROMUSCULAR EXAMINATION 0=normal; -1=25% weak; -2=50% weak; -3=75% weak; -3.25%=movement against gravity; -3.5=movement, gravity eliminated; -3.75; flicker of movement -4= complete paralysis. R Muscle, strength L Upper Limbs -4 Deltoid 0 -4 Biceps brachii 0 -4 Brachioradialis 0 Supinator/pronator -4 Triceps 0 -4 Digit extensors 0 Wrist extensor Wrist flexors Digit flexors -4 Interosseous 0 -4 Thumb abduction 0 Hypothenar R Muscle, strength L Lower Limbs -2 Iliopsoas 0 -1 Gluteus max -1 0 Adductors, thigh 0 -2 Gluteus medius 0 0 Quadriceps 0 -2 Hamstrings 0 -4 Tibialis anterior -1 very difficult to test patient doesn't follow commands well even with assisting x Peronei -1 x EHL -1 Toe flexors x Tibialis post. -1 x Gastrocnemius -1 R Reflexes L Normal =0 Reduced=-1, -2, -3 Absent= -4 Brisk=1+, 2+, 3+ (w/clonus/spasticity), 4+ (w/sustained clonus/spasticity) 3+ Biceps brachii 2+ 3+ Brachioradialis 2+ 3+ Triceps 2+ 3+ Quadriceps 2+ 3+ Gastroc-soleus 2+ 3+ Hamstrings 2+ Motor: Severe spastic right upper extremity hemiplegia. Milder spastic right lower extremity with hemiplegia. No appreciable clonus or spasticity is present in the left lower extremity. Aguilar: Equivocal left, not testable right Babinski: Present bilaterally right greater than left Coordination: Rapid alternating movements in the left hand are within normal limits. Gait: Rises from a seated to a standing position with assistance from . Cannot support her weight to walk. Romberg: NA Heart: Regular, no murmur. Vascular: No carotid bruits appreciated. With straight leg raise on the left she indicates with her hand some discomfort going down the lateral aspect of the left leg just past the knee. ASSESSMENT / PLAN DIAGNOSTICS Outside imaging from August 07, 2021 is reviewed. The radiology reports are not legible. Cervical spine MRI is reviewed and shows to my eye moderate degenerative spinal canal narrowing at C5-6 and C6-7 with mild flattening of the cord, without abnormal cord signal. Thoracic spine MRI is negative for significant stenosis. Brain MRI shows severe cystic encephalomalacia in the left temporoparietal occipital (MCA,TAKER OFF) and less severe cystic encephalomalacia occipital region on the right. These are in same distribution as brain MRI in 2000 with changes of wallerian degeneration more prominent on current MRI. Lumbar spine MRI findings were reviewed by Dr. Srinivasa Castellon and showed L2-L5 severe stenosis. 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 At baseline has severe right upper greater that right lower spastic hemiparesis from severe TBI. I do not find any convincing evidence on clinical history or on review of cervical spine imaging of cervical spondylotic myelopathy. The neurological examination is not of much help in this situation given her prominent upper motor neuron findings can all be attributed to severe TBI. She does seem to have normal strength in the left upper extremity which would argue against cervical myelopathy and no reported numbness in the hands though that cannot be completely confirmed given aphasia. She seems to have mild L4/5-S1 weakness in the left lower extremity not previously documented on previous neurological examinations here at [place], so suggestive of lumbar radiculopathy. I recommend EMG left lower extremity to evaluate for radiculopathy and if positive, lumbar spine decompressive surgery may be more likely to be beneficial. Even with a successful surgery there is question as to whether she could regain sufficient strength in the legs to translate into meaningful improv ement in mobility given duration of weakness, underlying deficits from TBI, deconditioning. EMG procedure was explained and patient's and patient were agreeable to test. Patient's will need to be present for examination to assist her with following commands. Lastly, her epilepsy is well controlled with current carbamazepine and Keppra. I updated [facility] with current medication dosages. Patient to meet with Dr. Castellon face to face next week to discuss further the possibility of lumbar spine surgery. Total time 70 minutes with greater than 50% of the time spent face to face in counseling, review of the EHR, review of diagnostic tests, including pertinent imaging studies and coordination of care. EXEC documented in this encounter Plan of Treatment Not on filedocumented as of this encounter Results EMG (08/27/2021 9:30 AM CDT) Specimen (Source) Anatomical Collection Method Collection Time Re ceived Time Location / / Volume Laterality 08/27/2021 9:30 AM CDT Narrative EMG - 08/27/2021 11:10 AM CDT 27-Aug-2021 ? Electromyography ? Amended Report Study Number: 1 EMG Third Steel Pourer: Benji Bhakta 127 or [phone] Referred by: VALENCIA RUIZ (127 or [phone]) Referred for: Lumbar radic Referral Code: ?022 RX: 001 SUMMARY: Prior to starting the procedure , the patient's identity was verified, pertinent available records were reviewed, the nature of the procedure was explained, the appropriate sites of the exam were confirmed directly with the pa tient, and a pre-procedure pause was performed for final verification of all of the above. ?? The nerve conduction studies are notable for a reduced tibial compound muscle action po tential amplitude. ??The rest of the nerve conduction studies are normal. ??The needle examina tion of the left lower extremity is normal. CLINICAL INTERPRETATION: The study is es sentially normal. ??The low tibial compound muscle action potentials likely due to local foot fact ors such as prior trauma. ??There is no evidence suggest an active left lumbosacral radiculopathy. Antonina Bhakta (127 or [phone])/[facility] NERVE CONDUCTIONS ??Record Rep ?? Normal ??Normal Distal Normal F-Wave F-Wave Temp Nerve Type Site Stim Side Amp Amp CV CV Lat Lat Lat Est (??C) Fibular Motor EDB ??L 2.1 (> 2.0) 43 (> 41) 5.0 (< 6.6) ?? 29.6 Tibial Motor AH ??L 1.6 (> 4.0) 44 (> 40 ) 4.0 (< 6.1) ?? 29.6 Sural Sensory Ankle ??L 6 (> 0.0) ??(> 4 0) 3.5 (< 4.5) ?? 29.4 NEEDLE EMG ??Ins Spont ??MUP ??Recruitment ??Durat ion ??Amplitude ??Phases ?? Muscle Side Act Fib Fasc Normal Activ Re duced Rapid Long Short High Low % Turns Lumbar Paraspinal (lower) L NL 0 0 NL ? Gluteus rosanna L NL 0 0 NL ? Tensor fasciae latae L NL 0 0 NL ? Vastus medialis L NL 0 0 NL ? Gastrocnemius (medial head) L NL 0 0 NL ? Peroneus longus L NL 0 0 NL ? Tibialis anterior L NL 0 0 NL ? This interpretation has been electron ically signed: Benji Bhakta MD at 08/27/2021 1:01:10 PM CDT Procedure Note Benji Bhakta M.D. - 08/27/2021Forma tting of this note is different from the original. 27-Aug-2021 Electromyography Amended Rep ort Study Number: 1 EMG Third Steel Pourer: Benji Bhakta. 127 or [phone] Referred by: VALENCIA RUIZ (127 or [phone]) Referred for: Lumbar radic Referral Code: 022 RX: 001 SUMMARY: Prior to starting the procedure , the patient's identity was verified, pertinent available records were reviewed, the nature of the procedure was explained, the appropriate sites of the exam were confirmed directly with the pa tient, and a pre-procedure pause was performed for final verification of all of the above. The nerve conduction studies are notable for a reduced tibial compound muscle action po tential amplitude. The rest of the nerve conduction studies are normal. The needle examinati on of the left lower extremity is normal. CLINICAL INTERPRETATION: The study is es sentially normal. The low tibial compound muscle action potentials likely due to local foot fact ors such as prior trauma. There is no evidence suggest an active left lumbosacral radiculopathy. Antonina Bhakta (127 or [phone])/[facility]DU[facility] Record Rep Normal Normal Distal Normal F-Wave F-Wave Temp Nerve Type Site Stim Side Amp Amp CV CV Lat Lat Lat Est (??C) Fibular Motor EDB L 2.1 (> 2.0) 43 (> 41 ) 5.0 (< 6.6) 29.6 Tibial Motor AH L 1.6 (> 4.0) 44 (> 40) 4.0 (< 6.1) 29.6 Sural Sensory Ankle L 6 (> 0.0) (> 40) 3 .5 (< 4.5) 29.4 NEEDLE EMG Ins Spont MUP Recruitment Duration Ampl itude Phases Muscle Side Act Fib Fasc Normal Activ Re duced Rapid Long Short High Low % Turns Lumbar Paraspinal (lower) L NL 0 0 NL Gluteus rosanna L NL 0 0 NL Tensor fasciae latae L NL 0 0 NL Vastus medialis L NL 0 0 NL Gastrocnemius (medial head) L NL 0 0 NL Peroneus longus L NL 0 0 NL Tibialis anterior L NL 0 0 NL This interpretation has been electron ically signed: Benji Bhakta MD at 08/27/2021 1:01:10 PM CDT Valencia Ruiz D.O. 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
--- OUTSIDE RECORDS SUMMARY | 2022-02-18 10:51 | XMS_ITS | Encounter Summary ---
:1945 Author Organization [facility] Address [address] [place] [address] Care Team Providers Name Role Phone Unavailable Primary Care Provider Unavailable Reason for Referral Outpatient (Routine) - Closed Specialty Diagnoses / Procedures Referred By Contact Refer red To Contact Neurological Surgery Diagnoses Stenosis Srinivasa Magallon [facility] 200 [place] [address] Referral ID Status Reason Start Date Expiration Date Visits Requ ested Visits Authorized [id number] Closed 08/13/2021 08/13/2022 1 1 Scheduling Instructions Patient prefers video visit with Dr. Irma palacios sooner rather than the day prior to surgery ANT PRINT OPERATOR Outpatient (Routine) - Closed Specialty Diagnoses / Procedures Referred By Contact Refer red To Contact Anesthesiology Diagnoses Stenosis Srinivasa Magallon M.D. [facility] [address] [place] [phone] Referral ID Status Reason Start Date Expiration Date Visits Requ ested Visits Authorized [id number] Closed 08/13/2021 08/13/2022 1 1 ANT PRINT OPERATOR Outpatient (Routine) - Closed Specialty Diagnoses / Procedures Referred By Contact Refer red To Contact Social Work Diagnoses Stenosis Srinivasa Magallon M.D. [facility] [address] [place] [phone] Referral ID Status Reason Start Date Expiration Date Visits Requ ested Visits Authorized [id number] Closed 08/13/2021 08/13/2022 1 1 ANT PRINT OPERATOR Encounter Details Date Type Department Care Team Description 08/12/2021 Clinical Communication Department of Srinivasa Castellon Neurologic Surgery noman Tee M.D. [place], [place] [address] [facility] [address] [place] [phone] Social History Tobacco Use Types Packs/Day Years [...] or relatives? How often do you attend orthodoxy or Never 2021 cheondoism services? Do you belong to any clubs or No 08/26/2021 organizations such as orthodoxy groups, unions, fraternal or athletic groups, or [...] place to sleep or slept in a nursing home (including now)? Sex Assigned at Date Recorded Female 08/25/2021 9:30 PM CDT documented as of this encounter Miscellaneous Notes Telephone Encounter - Blossom Dennis RMyeshaN. - 08/13/2021 11:06 AM CST I called and spoke with the patients . They would like to meet with Dr. Castellon earlier thanthe day prior to surgery. I offered a video visit which I thought might be helpful with her current mobility. Surgery is listed and orders signed. ANT PRINT OPERATOR Telephone Encounter - Orin Mcintyre - 08/13/2021 8:02 AM CST Caller Name/Relationship to Patient: Auth on file: Yes. Date of service: 09/02/2021 Provider/RN Name: Dr. Castellon Reason for Call: Additional Requests: called back and I told him that 09/02/2021 was the soonest date for surgery and they would like to take it. He will also ask the facility where his had all images done to push all of them to us. He would still like to be contacted. How to contact back: Call: [phone] ANT PRINT OPERATOR Telephone Encounter - Serafin Meléndez - 08/12/2021 4:09 PM CST Patient called again and would like to schedule a f/u appointment to discuss surgery, which they areleading towards, JEAN CARLOS. Contact: , patient or her . ANT PRINT OPERATOR Telephone Encounter - Orin Mcintyre - 08/12/2021 11:16 AM CST Caller Name/Relationship to Patient: Auth on file: Yes. Date of service: 08/04/2021 Provider/RN Name: Dr. Castellon Reason for Call: Additional Requests: Patient's called back on regards to surgery date. He would like a call back to the phone listed below. *It says that patient needs an shove up but speaks Omani. How to contact back: Call: [phone] ANT PRINT OPERATOR documented in this encounter Plan of Treatment Scheduled Referrals Name Type Priority Associated Order Schedule Diagnoses Social Work - General Outpatient Referral Routine Stenosis Spi nal Expected: consult (clinic) 09/01/2021, Expires: 11/12/2022 Preoperative Outpatient Referral Routine Stenosis Spinal Expec adina: Evaluation ERICKSON 08/13/2021 consult (clinic) (Approximat e), Expires: 11/12/2022 Neurological Surgery Outpatient Referral Routine Stenosis Spin al Expected: - Spine consult 08/13/2021 (clinic) (Approximate), Expires: 11/12/2022 documented as of this encounter Results SARS Coronavirus 2, Molecular Detection, PCR, Varies Asymptomatic (09/01/2021 9:40 AM CDT) [facility] Method Time Signature COVID-19, Swab, 09/01/2021 DTL PCR, Source Nasopharynx 1:17 PM CDT COVID-19, Undetected Undetected 09/01/2021 DTL PCR, Result 1:17 PM CDT Comment: SARS-CoV-2 RNA absent. This result does not rule out COVID-19 in the patient, as the sensitivity of the test depends o n the timing of the specimen collection and quality of the specimen. Result should be correlated with patient's history and clinical presentat ion. ----ADDITIONAL INFORMATION---- This RT-PCR test using the [employer] Project SARS-Co V-2 Assay ( [employer].) performed on the MediSafe Project Two Module System has received Emergency Use Authorization (EUA) by the U.S. Food and Drug Administration, and is modified from the field recorder's instructions with a bridging study. Performance characteristics were verifie d by [facility] in a manner consistent with CLIA requirements. Visit the CDC website: https://www.cdc.g ov/coronavirus/ for the most recent guidelines on [place] virus testing. Fact Sheet for Healthcare Providers: https://www.fda.gov/media/275594/downloa d Fact Sheet for Patients: https://www.fda.gov/media/096709/downloa d Specimen Anatomical Collection Method Collection Time Receive d Time (Source) Location / / Volume Laterality Varies 09/01/2021 9:40 AM 2 (Nasopharynx) CDT 10:15 AM CDT Srinivasa Castellon M.D. LAB MICROBIOLOGY - GENERAL O RIMA Performing Organization Address City/State/ZIP Code Phon e Number [facility] [address] [place], [place] [address] [facility] [place] [address] [facility] [address] documented in this encounter Visit Diagnoses Diagnosis Stenosis Spinal - Primary documented in this encounter
--- OUTSIDE RECORDS SUMMARY | 2022-02-18 10:51 | XMS_ITS | Encounter Summary ---
:1945 Author Organization [facility] Address [address] [place] [address] Care Team Providers Name Role Phone Unavailable Primary Care Provider Unavailable Encounter Details Date Type Department Care Team Description 04/12/2018 Orders Only Department of Physical Depompolo, Focal Complex Partial Medicine and Jose Harrison M.D. Epilepsy Not Rehabilitation in [address] [place] [address] Intractable With [place], [place] Status Epilepticus [address] [place] [phone] (HCC) (Primary Dx) [place] [address] [phone] Social History Tobacco Use Types Packs/Day Years [...] or relatives? How often do you attend oriental orthodox or Never 2021 scientology services? Do you belong to any clubs or No 08/26/2021 organizations such as oriental orthodox groups, unions, fraternal or athletic groups, or [...] or slept in a intermediate (including now)? 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
--- OUTSIDE RECORDS SUMMARY | 2022-02-18 10:51 | XMS_ITS | Encounter Summary ---
:1945 Author Organization [facility] Address [address] [place] [address] Care Team Providers Name Role Phone Elsewhere, Pcp Primary Care Provider Unavailable Reason for Referral Outpatient (Routine) - Closed Specialty Diagnoses / Procedures Referred By Contact Refer red To Contact Spine Diagnoses Stenosis Spinal Srinivasa Castellon M.D. [facility] [address] [place] [phone] Referral ID Status Reason Start Date Expiration Date Visits Requ ested Visits Authorized [id number] Closed 08/20/2021 08/20/2022 1 1 Scheduling Instructions URGENT needs prior to seeing Dr. 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 (Primary Dx) [address] [place] [phone] Social History Tobacco Use Types Packs/Day Years [...] or relatives? How often do you attend cheondoism or Never 2021 congregation services? Do you belong to any clubs or No 08/26/2021 organizations such as cheondoism groups, unions, fraternal or athletic groups, or [...] as of this encounter Plan of Treatment Scheduled Referrals Name Type Priority Associated Diagnoses Order S [facility] Spine - Neurology Outpatient Referral Routine Stenosis Spinal Expected: consult (clinic) 08/20/2021 (Approximate), Expires: 11/20/2022 documented as of this encounter Visit Diagnoses Diagnosis Stenosis Spinal - Primary documented in this encounter Additional Health Concerns Infection Onset Date Last Indicated Resolved Time COVID19 Pending 09/01/2021 09/01/2021 09/01/2021 1:17 PM CDT documented as of this encounter Care Teams Top Waddy Relationship Specialty Start Date End Date Elsewhere, Pcp PCP - General Internal Medicine 09/02/21 documented as of this encounter
--- OUTSIDE RECORDS SUMMARY | 2022-02-18 10:51 | XMS_ITS | Encounter Summary ---
:1945 Author Organization [facility] Address [address] [place] [address] Care Team Providers Name Role Phone Unavailable Primary Care Provider Unavailable Encounter Details Date Type Department Care Team Description 08/03/2021 Ancillary Procedure Department of Jose Peng Spinal Radiology in Maame Harrison [place], [place] [address] [facility] [address] [place] [phone] Social History Tobacco Use Types Packs/Day Years [...] or relatives? How often do you attend samaritan or Never 2021 uatsdin services? Do you belong to any clubs or No 08/26/2021 organizations such as samaritan groups, unions, fraternal or athletic groups, or [...] slept in a senior living (including now)? Sex Assigned at Date Recorded Female 08/25/2021 9:30 PM CDT documented as of this encounter Miscellaneous Notes Result Encounter Note - Jose Peng M.D. - 08/03/2021 11:21 AM LEGAL DOCUMENT SPECIALIST The outside lumbar spine MRI shows severe central canal stenosis from L2 through L5. 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 The patient's spouse would like a Spine surgeon's opinion and I have requested an E consult by Neurosurgery. L DOCUMENT SPECIALIST documented in this encounter Plan of Treatment Not on filedocumented as of this encounter Procedures Procedure Name Priority Date/Time Associated Comments Diagnosis INTERPRETATION OF RAD - Routine 08/03/2021 8:11 Stenosis Spinal Res ults for OUTSIDE MR SPINE (most inpatients AM LEGAL DOCUMENT SPECIALIST this pr ocedure and all are in the outpatients) results section. documented in this encounter Results Interpretation of Outside MR Spine (08/03/2021 8:11 AM LEGAL DOCUMENT SPECIALIST) Anatomical Region Laterality Modality Neuroradiology RST LOS, Neuroradiology ARZ LOS, N/A Magnetic Resonance Neuroradiology FLA LOS, Spine, Other Specimen (Source) Anatomical Collection Method Collection Time Re ceived Time Location / / Volume Laterality 08/03/2021 8:23 AM LEGAL DOCUMENT SPECIALIST Impressions 08/03/2021 8:49 AM LEGAL DOCUMENT SPECIALIST Lumbar spondylosis, as described, result s in severe central canal stenosis from L2-L5 Narrative 08/03/2021 8:49 AM LEGAL DOCUMENT SPECIALIST EXAM: ??INTERPRETATION OF OUTSIDE MR SPINE COMPARISON: ??None FINDINGS: ??Outside MRI lumbar spine wit hout IV contrast 07/22/2021 Moderate generalized lumbar spondylosis, with degenerative disc disease and loss of disc height at L2-3. Mild retrolisthesis of L2 on L3. L ow-grade anterolisthesis of L4 on L5. Chronic superior endplate fracture at L5, with mild loss of vertebral height. Moderate facet arthropathy, broad-based disc protrusions, prominence of epidural fat superimposed on a congenitally narrowed lumbar spinal canal results in multilevel canal stenos is: Moderate L1-2, severe L2-3 (with redundancy of the proximal cauda equine nerve roots), cesar re L3-4, and severe L4-5. Mild to moderate right L2-3 and L3-4, and left L4-5 foraminal narrowing. Normal conus with the tip at L1-2. Remainder unremarkable. Procedure Note Jennifer Bashir M.D. - 08/03/2021Fo rmatting of this note might be different from the original. EXAM: INTERPRETATION OF OUTSIDE MR SPINE COMPARISON: None FINDINGS: Outside MRI lumbar spine witho ut IV contrast 07/22/2021 Moderate generalized lumbar spondylosis, with degenerative disc disease and loss of disc height at L2-3. Mild retrolisthesis of L2 on L3. L ow-grade anterolisthesis of L4 on L5. Chronic superior endplate fracture at L5, with mild loss of vertebral height. Moderate facet arthropathy, broad-based disc protrusions, prominence of epidural fat superimposed on a congenitally narrowed lumbar spinal canal results in multilevel canal stenos is: Moderate L1-2, severe L2-3 (with redundancy of the proximal cauda equine nerve roots), cesar re L3-4, and severe L4-5. Mild to moderate right L2-3 and L3-4, and left L4-5 foraminal narrowing. Normal conus with the tip at L1-2. Remainder unremarkable. IMPRESSION: Lumbar spondylosis, as described, result s in severe central canal stenosis from L2-L5 Jose PATEL MRI PROCEDURES documented in this encounter Visit Diagnoses Diagnosis Stenosis Spinal documented in this encounter
--- OUTSIDE RECORDS SUMMARY | 2022-02-18 10:51 | XMS_ITS | Encounter Summary ---
:1945 Author Organization [facility] Address [address] [place] [address] Care Team Providers Name Role Phone Unavailable Primary Care Provider Unavailable Encounter Details Date Type Department Care Team Description 04/10/1996 - 04/12/1996 Hospital Encounter HX RST FREEDOM 2C Social History Tobacco Use Types Packs/Day Years [...] or relatives? How often do you attend sikhism or Never 2021 jainism services? Do you belong to any clubs or No 08/26/2021 organizations such as sikhism groups, unions, fraternal or athletic groups, or [...] place to sleep or slept in a long term (including now)? Sex Assigned at Date Recorded Female 08/25/2021 9:30 PM CDT documented as of this encounter Plan of Treatment Not on filedocumented as of this encounter Visit Diagnoses Not on filedocumented in this encounter
--- OUTSIDE RECORDS SUMMARY | 2022-02-18 10:51 | XMS_ITS | Encounter Summary ---
:1945 Author Organization [facility] Address [address] [place] [address] Care Team Providers Name Role Phone Unavailable Primary Care Provider Unavailable Encounter Details Date Type Department Care Team Description 08/03/2021 Orders Only Department of Physical DepompoloNoreen sis Spinal Medicine and Jose Harrison M.D. (Primary Dx) Rehabilitation in [address] [place] [address] [place] [phone] [place] [address] [phone] Social History Tobacco Use Types Packs/Day Years [...] or relatives? How often do you attend tenriism or Never 2021 adventism services? Do you belong to any clubs or No 08/26/2021 organizations such as tenriism groups, unions, fraternal or athletic groups, or [...] place to sleep or slept in a retirement (including now)? Sex Assigned at Date Recorded Female 08/25/2021 9:30 PM CDT documented as of this encounter Plan of Treatment Not on filedocumented as of this encounter Results Interpretation of Outside MR Spine (08/03/2021 8:11 AM OCCUPATIONAL THERAPIST REHAB MANAGER) Anatomical Region Laterality Modality Neuroradiology RST LOS, Neuroradiology ARZ LOS, N/A Magnetic Resonance Neuroradiology FLA LOS, Spine, Other Specimen (Source) Anatomical Collection Method Collection Time Re ceived Time Location / / Volume Laterality 08/03/2021 8:23 AM OCCUPATIONAL THERAPIST REHAB MANAGER Impressions 08/03/2021 8:49 AM OCCUPATIONAL THERAPIST REHAB MANAGER Lumbar spondylosis, as described, result s in severe central canal stenosis from L2-L5 Narrative 08/03/2021 8:49 AM OCCUPATIONAL THERAPIST REHAB MANAGER EXAM: ??INTERPRETATION OF OUTSIDE MR SPINE COMPARISON: [...] Visit Diagnoses Diagnosis Stenosis Spinal - Primary Stenosis Spinal documented in this encounter
--- OUTSIDE RECORDS SUMMARY | 2022-02-18 10:51 | XMS_ITS | Encounter Summary ---
:1945 Author Organization [facility] Address [address] [place] [address] Care Team Providers Name Role Phone Unavailable Primary Care Provider Unavailable Encounter Details Date Type Department Care Team Description 08/31/2021 Clinical Communication Department of Srinivasa Castellon Neurologic Surgery in Maame Tee [place], [place] [address] [facility] [address] [place] [phone] Social History Tobacco Use Types Packs/Day Years [...] or relatives? How often do you attend holiness or Never 2021 druze services? Do you belong to any clubs or No 08/26/2021 organizations such as holiness groups, unions, fraternal or athletic groups, or [...] place to sleep or slept in a fdc (including now)? Education Answer Date Recorded What is the highest level of Professional school degree (e.g ., , 08/25/2021 school you have completed or the DDS, DVM, ROSALVA) highest degree you have received? Sex Assigned at Date Recorded Female 08/25/2021 9:30 PM CDT documented as of this encounter Miscellaneous Notes Telephone Encounter - Linda Rodriguez R.N. - 08/31/2021 4:59 PM CDT I spoke to Mr. Langley and have reviewed his 's appointments with him for tomorrow and also about calling in tomorrow night to find out the report time. They will also get this information at the ERICKSON appointment tomorrow and they understand that. Telephone Encounter - Dimple Aguirre - 08/31/2021 4:38 PM CDT Caller Name/Relationship to Patient: Kirk () Auth on file: Yes. Date of service: 08/28/2021 Provider/RN Name: Cande Reason for Call: Calling to confirm September 02, 2021, as surgical date. They would like confirmation on check-in time. Dr. Castellon told them 6:30. How to contact back: If questions, documented in this encounter Plan of Treatment Not on filedocumented as of this encounter Visit Diagnoses Not on filedocumented in this encounter Additional Health Concerns Infection Onset Date Last Indicated Resolved Time COVID19 Pending 09/01/2021 09/01/2021 09/01/2021 1:17 PM CDT documented as of this encounter
--- OUTSIDE RECORDS SUMMARY | 2022-02-18 10:51 | XMS_ITS | Encounter Summary ---
:1945 Author Organization [facility] Address [address] [place] [address] Care Team Providers Name Role Phone Unavailable Primary Care Provider Unavailable Reason for Visit Outpatient (Routine) - Closed Specialty Diagnoses / Procedures Referred By Contact Refer red To Contact Neurological Surgery Diagnoses [facility] - Spine eConsult M.DMyesha [address] [place] [phone] Referral ID Status Reason Start Date Expiration Date Visits Requ ested Visits Authorized [id number] Closed 08/03/2021 08/03/2022 1 1 Encounter Details Date Type Department Care Team Description 08/04/2021 Internal E-Consult Department of Srinivasa Castellon is Spinal Neurologic Surgery in , [place], [place] [address] [facility] [address] [place] [phone] Social History Tobacco Use Types Packs/Day Years [...] or relatives? How often do you attend muslim or Never 2021 uatsdin services? Do you belong to any clubs or No 08/26/2021 organizations such as muslim groups, unions, fraternal or athletic groups, or [...] encounter Consult Notes Srinivasa Castellon M.D. - 08/04/2021 7:30 AM CST The patient was not personally interviewed or examined. The history and examination findings are based on the clinical documentation provided and/or discussed with a physician or provider who had personally interviewed and examined the patient. Referring Physician: Jose Peng M.D. CHIEF COMPLAINT / REASON FOR VISIT Aurora Langley is a 76 y.o. female referred by Dr. Peng, for symptoms of lumbar pseudoclaudication, in the setting of previous significant traumatic brain injury in 1995, suffering a seizure disorder, spastic right hemiparesis, and expressive aphasia, all as a result. Her is her caregiver, and the patient has fairly done well over the past 25 years. Unfortunately, although her mobility is compromised by the traumatic brain injury, it is progressively become worse due to symptoms suggestive of lumbar pseudoclaudication, so given she is disabled from the TBI, she is becoming progressively more disabled. I reviewed her MRI imaging of the lumbosacral spine, which reveals significant spinal stenosis from L2 through L5. An operation to decompress this surgically, carries a 70-80% chance of improving the patient's ability to stand and walk, to her previous disabled state, and would generally halt progression of her decline from this contribution. The operation would last 2-3 hours, 300 to 500 cc blood loss, likely stay in the hospital 2-3 days, and given her disability, a transition to a chcf for 2-3 weeks or even rehabilitation after her hospital stay until she was mobilizing, would likely be her course. The operation is painful, given the number of surgical levels required, but the significant pain begins to decrease by postoperative day 3 or 4, and generally mostly gone by the 3rd to 4th week after surgery. Given her disabled status, her improvement would be noticed over weeks after the surgery, but I expect within 4-6 weeks after the surgery, one would expect if she were a success, noticeable improvement in her ability to stand and walk as result of the surgery. The risks of this kind of surgery, would be a 1-2% chance of a root injury, giving her more, weakness, on a permanent basis; a 3-4% chance of wound complication, such as CSF leak or infection, that mayrequire further aggressive management strategies; a 1 in several 100 chance of a cauda equina injury, that would leave her wheelchair-bound for life and all the ramifications thereof; a 1 in 10,000 chance of blindness in both eyes, a sequelae to lumbar laminectomy for ill-defined reasons, and a 3-5% chance of needing a 2nd operation for fusion, in the event that this procedure made her unstable. It is also possible that postoperatively she may exhibit seizures, but this would be true after any general anesthesia. I would be happy to discuss this with the patient and her at a future date, if they are inclined in a surgical direction after reviewing my note above. 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
--- OUTSIDE RECORDS SUMMARY | 2022-02-18 10:51 | XMS_ITS | Encounter Summary ---
:1945 Author Organization [facility] Address [address] [place] [address] Care Team Providers Name Role Phone Unavailable Primary Care Provider Unavailable Encounter Details Date Type Department Care Team Description 08/05/2021 Clinical Communication Department of Physical Depompol o, Medicine and Jose Harrison M.D. Rehabilitation in [address] [place] [address] [place] [phone] [place] [address] [phone] Social History Tobacco Use Types Packs/Day Years [...] or relatives? How often do you attend faith or Never 2021 jehovah's witness services? Do you belong to any clubs or No 08/26/2021 organizations such as faith groups, unions, fraternal or athletic groups, or [...] place to sleep or slept in a correction (including now)? Sex Assigned at Date Recorded Female 08/25/2021 9:30 PM CDT documented as of this encounter Miscellaneous Notes Telephone Encounter - Jose Peng M.D. - 08/05/2021 7:33 AM CASH REGISTER REPAIRER I spoke with the patient and her spouse last night about Dr. Castellon's evaluation. I encouraged them to review this themselves through the [place] [facility]. The patient's primary care provider has setup anappointment with Nicko Stone, a non operative orthopedic physician in [place], [place], to review the diagnosis and make recommendations. The patient plans to await that input which is scheduled for later this week. This seems quite reasonable. They also wonder about the potential benefit of updating the patient's brain MRI which certainly seems reasonable as well but I would defer that to Dr. Stone. REGISTER REPAIRER documented in this encounter Plan of Treatment Not on filedocumented as of this encounter Visit Diagnoses Not on filedocumented in this encounter
--- OUTSIDE RECORDS SUMMARY | 2022-02-18 10:51 | XMS_ITS | Encounter Summary ---
:1945 Author Organization [facility] Address [address] [place] [address] Care Team Providers Name Role Phone Unavailable Primary Care Provider Unavailable Reason for Visit Reason Comments Pre-visit Intake Encounter Details Date Type Department Care Team Description 08/21/2021 Clinical Communication Visit Review in Pr e-visit Intake [address] [address] Social History Tobacco Use Types Packs/Day Years [...] or relatives? How often do you attend protestant or Never 2021 judaism services? Do you belong to any clubs or No 08/26/2021 organizations such as protestant groups, unions, fraternal or athletic groups, or [...] slept in a senior care (including now)? Sex Assigned at Date Recorded Female 08/25/2021 9:30 PM CDT documented as of this encounter Plan of Treatment Not on filedocumented as of this encounter Visit Diagnoses Not on filedocumented in this encounter
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
--- OUTSIDE RECORDS SUMMARY | 2022-02-18 10:51 | XMS_ITS | Encounter Summary ---
:1945 Author Organization [facility] Address [address] [place] [address] Care Team Providers Name Role Phone Unavailable Primary Care Provider Unavailable Reason for Referral Outpatient (Routine) - Closed Specialty Diagnoses / Procedures Referred By Contact Refer red To Contact Neurological Surgery Diagnoses Stenosis Spinal Jose Peng, [facility] Procedures Neurological surgery - Spine eConsult Maame [address] [place] [phone] Referral ID Status Reason Start Date Expiration Date Visits Requ ested Visits Authorized [id number] Closed 08/03/2021 08/03/2022 1 1 ETES EDUCATION COORDINATOR Encounter Details Date Type Department Care Team Description 08/03/2021 Orders Only Department of Physical Ginette, Noreen sis Spinal Medicine and Jose Harrison M.D. (Primary Dx) Rehabilitation in [address] [place] [address] [place] [phone] [place] [address] [phone] Social History Tobacco Use Types Packs/Day Years [...] you attend jehovah's witness or Never 2021 jain services? Do you belong to any clubs [...] place to sleep or slept in a [facility] (including now)? Sex Assigned at Date Recorded Female 08/25/2021 9:30 PM CDT documented as of this encounter Plan of Treatment Not on filedocumented as of this encounter Visit Diagnoses Diagnosis Stenosis Spinal - Primary documented in this encounter
--- OUTSIDE RECORDS SUMMARY | 2022-02-18 10:51 | XMS_ITS | Encounter Summary ---
:1945 Author Organization [facility] Address [address] [place] [address] Care Team Providers Name Role Phone Unavailable Primary Care Provider Unavailable Encounter Details Date Type Department Care Team Description 06/01/2016 - Hospital Encounter HX RST EMERGENCY Provider, Historic al 06/02/2016 TRAUMA UNI Social History Tobacco Use Types Packs/Day Years [...] or relatives? How often do you attend temple or Never 2021 christian services? Do you belong to any clubs or No 08/26/2021 organizations such as temple groups, unions, fraternal or athletic groups, or [...] or slept in a detention (including now)? Sex Assigned at Date Recorded Female 08/25/2021 9:30 PM CDT documented as of this encounter Medications at Time of Discharge Medication Sig Dispensed Refills Start Date End Date aspirin [address] tablet every morning. 0 02/16/20 08 cholecalciferol (VITAMIN D3) One time per week 0 05/13/2014 25 mcg (1,000 Unit) capsule carBAMazepine (CARBATROL) as needed. 0 06/02/2016 08/20/2021 100 mg 12 hr capsule documented as of this encounter Plan of Treatment Not on filedocumented as of this encounter Visit Diagnoses Not on filedocumented in this encounter
--- OUTSIDE RECORDS SUMMARY | 2022-02-18 10:51 | XMS_ITS | Encounter Summary ---
:1945 Author Organization [facility] Address [address] [place] [address] Care Team Providers Name Role Phone Unavailable Primary Care Provider Unavailable Reason for Referral Outpatient (Routine) - Closed Specialty Diagnoses / Procedures Referred By Contact Refer red To Contact Diagnoses Stenosis Spinal Lumbar With Neurogenic Claudication Valencia Ruiz D.O. [facility] Procedures EMG [address] [place] [address] Referral ID Status Reason Start Date Expiration Date Visits Requ ested Visits Authorized [id number] Closed 08/20/2021 08/20/2022 1 1 Reason for Visit Outpatient (Routine) - Closed Specialty Diagnoses / Procedures Referred By Contact Refer red To Contact Diagnoses Stenosis Spinal Lumbar With Neurogenic Claudication Valencia Ruiz D.O. [facility] Procedures EMG [address] [place] [address] Referral ID Status Reason Start Date Expiration Date Visits Requ ested Visits Authorized [id number] Closed 08/20/2021 08/20/2022 1 1 Encounter Details Date Type Department Care Team Description 08/27/2021 Hospital Encounter Department of Valencia Ruiz Spinal Neurology in [place] Lumbar With [address] Neurogenic [place], [place] Claudication [address] [address] [place], [place] [phone] [address] (Work) [phone] Social History Tobacco Use Types Packs/Day Years [...] or relatives? How often do you attend hinduism or Never 2021 gnosticism services? Do you belong to any clubs or No 08/26/2021 organizations such as hinduism groups, unions, fraternal or athletic groups, or [...] place to sleep or slept in a assisted (including now)? Education Answer Date Recorded What [...] ORAL) acetaminophen (TYLENOL) Take 2 tablets 0 09/05/19 [...] a day. documented as of this encounter Plan of Treatment Not on filedocumented as of this encounter Procedures Procedure Name Priority Date/Time Associated Diagnosis Comme nts EMG Routine 08/27/2021 9:30 AM Stenosis Spinal Lumbar Results for this CDT With Neurogenic procedure ar e in Claudication the results section. documented in this encounter Results EMG (08/27/2021 9:30 AM CDT) Specimen (Source) Anatomical Collection Method Collection Time Re ceived Time Location / / Volume Laterality 08/27/2021 9:30 AM CDT Narrative [facility] EMG - 08/27/2021 11:10 AM CDT 27-Aug-2021 ? Electromyography ? Amended Report Study Number: 1 EMG Book Or Script Editor: Benji Bhakta 127 or [phone] Referred by: VALENCIA RUIZ (127 or [phone]) Referred for: Lumbar radic Referral Code: ?022 [...] left lumbosacral radiculopathy. Antonina Bhakta (127 or [phone])/[facility] ??Record Rep ?? Normal ??Normal [...] Amended Rep ort Study Number: 1 EMG Book Or Script Editor: Benji Bhakta. 127 or [phone] Referred by: VALENCIA RUIZ (127 or [phone]) Referred for: Lumbar radic Referral Code: 022 [...] left lumbosacral radiculopathy. Antonina Bhakta (127 or [phone])/[facility] Record Rep Normal Normal Distal [...]
--- OUTSIDE RECORDS SUMMARY | 2022-02-18 10:51 | XMS_ITS | Encounter Summary ---
:1945 Author Organization [facility] Address [address] [place] [address] Care Team Providers Name Role Phone Unavailable Primary Care Provider Unavailable Encounter Details Date Type Department Care Team Description 07/21/2020 Clinical Communication Department of Physical Depompol o, Medicine and Jose Harrison M.D. Rehabilitation in [address] [place] [address] [place] [address] [place] [address] [phone] Social History Tobacco Use Types Packs/Day Years [...] or relatives? How often do you attend anabaptism or Never 2021 druze services? Do you belong to any clubs or No 08/26/2021 organizations such as anabaptism groups, unions, fraternal or athletic groups, or [...] Telephone Encounter - Jose Peng M.D. - 07/21/2020 12:44 PM BONBON DIPPER So noted. Thanks. ON DIPPER Telephone Encounter - Jose Peng M.D. - 07/21/2020 7:49 AM BONBON DIPPER Eve, I did a letter on Jul 14 for this patient and left it with a cover letter at the Sidelines Desk to send. The patient's called and they still have not received it. Can you see what happened to it if possible. Thanks, Tad Peng ON DIPPER documented in this encounter Plan of Treatment Not on filedocumented as of this encounter Visit Diagnoses Not on filedocumented in this encounter
--- OUTSIDE RECORDS SUMMARY | 2022-02-18 10:51 | XMS_ITS | Encounter Summary ---
:[address] [facility] Address [address] [place] [address] Care Team Providers Name Role Phone Unavailable Primary Care Provider Unavailable Encounter Details Date Type Department Care Team Description 06/02/2016 Hospital Encounter HX RST Dae Hernandez M.D. [address] [place] [phone] (Wo rk) Social History Tobacco Use Types Packs/Day Years [...] or relatives? How often do you attend pentecostalism or Never 2021 hoahaoism services? Do you belong to any clubs or No 08/26/2021 organizations such as pentecostalism groups, unions, fraternal or athletic groups, or [...] Sign Reading Time Taken Comments Blood Pressure 99/52 06/02/2016 2:40 PM NIBP - Value from [facility]. Pulse 80 06/02/2016 2:40 PM Value from [facility]. CO OP Temperature - - Respiratory Rate 18 06/02/2016 2:40 PM Value from [facility]. CO OP Oxygen Saturation - - Inhaled Oxygen - - Concentration Weight 69.3 kg (152 lb 12.5 06/02/2016 2:37 AM oz) CO OP Height 170 cm (5' 6.93) 06/02/2016 2:37 AM CO OP Body Mass Index 23.98 06/02/2016 2:37 AM CO OP documented in this encounter Medications at Time [...] Procedure Name Priority Date/Time Associated Comments Diagnosis HX MICROBIOLOGY Routine 06/02/2016 4:03 PM Result s for this REPORTS CO OP procedure are i n the results section. MICROSCOPIC MANUAL Routine 06/02/2016 4:03 PM Res ults for this CO OP procedure are i n the results section. GRAM'S STAIN, Routine 06/02/2016 4:03 PM Results for this CONFIRMATORY, U CO OP procedure ar e in the results section. URINALYSIS WITH Routine 06/02/2016 4:03 PM Result s for this MICROSCOPIC CO OP procedure are i n the results section. CARBAMAZEPINE LEVEL, Routine 06/02/2016 7:45 AM R esults for this TOT AND FR, S CO OP procedure are in the results section. ELECTROLYTE (CHEM 4) Routine 06/02/2016 3:23 AM R esults for this PANEL, S/P CO OP procedure are i n the results section. CBC WITH DIFFERENTIAL, Routine 06/02/2016 3:23 AM Results for this B CO OP procedure are i n the results section. PHOSPHORUS Routine 06/02/2016 3:23 AM Results f or this (INORGANIC), S CO OP procedure are in the results section. MAGNESIUM, S Routine 06/02/2016 3:23 AM Results f or this CO OP procedure are i n the results section. CALCIUM, IONIZED, S/B Routine 06/02/2016 3:23 AM Results for this CO OP procedure are i n the results section. documented in this encounter Results Microbiology Reports (06/02/2016 4:03 PM CO OP) Specimen Anatomical Collection Method Collection Time Receive d Time (Source) Location / / Volume Laterality 06/02/2016 4:03 PM 6 4:37 CO OP PM CO OP Narrative [facility] - 06/04/2016 9:28 AM CO OP 02-JUN-2016 URINE, MIDSTREAM, ?SoftOrd# [id number] ?(Ordered 02-JUN-2016; Collec adina 02-JUN-2016 16:03; Received 02-JUN-2016 16:37) ?[facility] ?BACTERIAL CULTURE, AEROBIC + MUÑOZ SC ? (Reported 04-JUN-2016 09:28) FINAL ?Mixed arsenio. Procedure Note 10/28/2017 02-JUN-2016 URINE, MIDSTREAM, SoftOrd# [id number] (Ordered 02-JUN-2016; Collected 2015 16:03; Received 02-JUN-2016 16:37) [facility] BACTERIAL CULTURE, AEROBIC + SUSC (Rep orted 04-JUN-2016 09:28) FINAL Mixed arsenio. Ta Kimbrough M.D., Ph.D. LAB MICROBIOLOGY - GENERAL ORDERABLES Performing Organization Address City/State/ZIP Code Phon e Number [facility] LAB[facility]ATORIES - [address] [place], [place] [address] [facility] (ABNORMAL) Gram Stain, Confirmatory, Urine (06/02/2016 4:03 PM CO OP) [facility] gist Method Time Signature Grams Stain, Positive (A) [facility] Confirmatory, LABORATORIES - Urine [facility] Comment: Many Gram-positive bacilli ? ADDITIONAL INFORMATIO N ? This test was developed and its performa nce characteristics ? determined by [facility] in a manner co nsistent with ? CLIA requirements. This test has not bee n cleared or ? approved by the U.S. Food and Drug Admin istration. ? Specimen Anatomical Collection Method Collection Time Receive d Time (Source) Location / / Volume Laterality 06/02/2016 4:03 PM 6 4:03 CO OP PM CO OP Ta Kimbrough M.D., Ph.D. LAB URINE ORDERABLES Performing Organization Address City/State/ZIP Code Phon e Number [facility] - [address] [place], [place] [address] [facility] (ABNORMAL) Microscopic Manual (06/02/2016 4:03 PM CO OP) [facility] gist Method Time Signature WBC 1-3 1-3 [facility] (Males); LABORATORIES - 1-10 [facility] (F[facility]ales[facility] /HPF Fat Occas (A) /HPF [facility] Microscopy Abnormal [facility] Blood <3 <3 /HPF [facility] Squamous 4-10 /HPF [facility] Epithelial [facility] Bacteria Present (A) [facility] Specimen Anatomical Collection Method Collection Time Receive d Time (Source) Location / / Volume Laterality 06/02/2016 4:03 PM 6 4:03 CO OP PM CO OP Ta Kimbrough M.D., Ph.D. LAB URINE ORDERABLES Performing Organization Address City/State/ZIP Code Phon e Number [facility] - [address] [place], [place] [address] [facility] (ABNORMAL) Urinalysis with Microscopic (06/02/2016 4:03 PM CO OP) [facility] gist Method Time Signature Source Midstream [facility] Appearance Normal Normal [facility] Hemoglobin, QL Negative Negative [facility] Osmolality, 24 477 150 - 1150 [facility] HR, U MOSM/KG [facility] Predicted 24 262 MG/24 H [facility] Hr Protein [facility] Predicted 65-1061 MG/24 H [facility] Range [facility] Glucose 14 0 - 15 MG/DL [facility] Protein, U 17 <22 MG/DL [facility] Comment: ? ADDITIONAL INFORMATIO N ? On 12/24/2013 the total protein assay me thod changed resulting ? in approximately a 20% increase in prote in values. ? pH, 24 HR, U 5.5 4.5 - 8.0 [facility] Comment: ? ADDITIONAL INFORMATIO N ? This test was developed and its performa nce characteristics determined by ? [facility] in a manner consistent with CLIA requirements. This test has not ? been cleared or approved by the [facility] d and Drug Administration. ? Protein/Osmolality 0.36 (H) <0.27 [facility] Comment: ? ADDITIONAL INFORMATIO N ? On 12/24/2013 the total protein assay me thod changed resulting ? in approximately a 20% increase in prote in values. ? Specimen Anatomical Collection Method Collection Time Receive d Time (Source) Location / / Volume Laterality 06/02/2016 4:03 PM 6 4:03 CO OP PM CO OP Ta Kimbrough M.D., Ph.D. LAB URINE ORDERABLES Performing Organization Address [facility] Phon e Number [facility] - [address] [place] [address] [facility] Carbamazepine, Free and Total (06/02/2016 7:45 AM CO OP) P athologist Signature Carbamazepine, 6.1 4.0 - 12.0 [facility] Tot, S MCG/ML LABORATORIES - [facility] Carbamazepine, 2.4 1.0 - 3.0 [facility] Free, S MCG/ML LABORATORIES - [facility] Specimen Anatomical Collection Method Collection Time Receive d Time (Source) Location / / Volume Laterality 06/02/2016 7:45 AM 6 7:45 CO OP AM CO OP Mary Garcia M.D., Ph.D. LAB BLOOD NON ADD-ON Performing Organization Address City/[facility] Phon e Number [facility] - [address] [place] [address] [facility] Electrolyte (Chem 4) Panel (06/02/2016 3:23 AM CO OP) Analysis Performed At Patho logist Time Signature Sodium, S 141 135 - 145 [facility] MMOL/L [facility] Potassium, S 3.8 3.6 - 5.2 [facility] MMOL/L [facility] Creatinine 0.6 0.6 - 1.1 [facility] MG/DL [facility] BUN (Blood Urea 7 6 - 21 [facility] Nitrogen), S MG/DL [facility] Chloride, S 104 98 - 107 [facility] MMOL/L [facility] HX Bicarbonate, 25 22 - 29 [facility] P/S MMOL/L [facility] Anion Gap 12 7 - 15 [facility] Glucose, S 95 70 - 140 [facility] MG/DL [facility] Specimen Anatomical Collection Method Collection Time Receive d Time (Source) Location / / Volume Laterality 06/02/2016 3:23 AM 6 3:23 CO OP AM CO OP Mary Garcia M.D., Ph.D. LAB BLOOD ADD-ON Performing Organization Address City/[facility]/ZIP Code Phon e Number [facility] - [address] [place] [address] [facility] (ABNORMAL) Calcium, Ionized (06/02/2016 3:23 AM CO OP) [facility] TRA Method Time Signature Calcium, 4.89 4.80 - [facility] Ionized, S 5.70 LABORATORIES - MG/DL [facility] pH 7.45 (H) 7.32 - [facility] 7.43 LABORATORIES - [facility] Specimen Anatomical Collection Method Collection Time Receive d Time (Source) Location / / Volume Laterality 06/02/2016 3:23 AM 6 3:23 CO OP AM CO OP Mary Garcia M.D., Ph.D. LAB BLOOD NON ADD-ON Performing Organization Address City/[facility] Phon e Number [facility] - [address] [place] [address] [facility] (ABNORMAL) CBC with Differential (06/02/2016 3:23 AM CO OP) [facility] TRA Method Time Signature Erythrocytes 3.85 (L) 3.90 - [facility] 5.03 LABORATORIES - X10(12)/L [facility] MCV 99.2 (H) 81.6 - [facility] 98.3 [place] LABORATORIES [facility] RBC Distrib 13.3 11.9 - [facility] Width 15.5 % LABORATORIES - [facility] Platelet Count 238 150 - 450 [facility] X10(9)/L LABORATORIES - [facility] Lymphocytes 1.47 0.90 - [facility] 2.90 LABORATORIES - X10(9)/L [facility] Monocytes 0.91 (H) 0.30 - [facility] 0.90 LABORATORIES - X10(9)/L [facility] Eosinophils 0.11 0.05 - [facility] 0.50 LABORATORIES - X10(9)/L [facility] Basophils 0.02 0.00 - [facility] 0.30 LABORATORIES - X10(9)/L [facility] Hemoglobin 13.1 12.0 - [facility] 15.5 G/DL LABORATORIES - [facility] Hematocrit 38.2 34.9 - [facility] 44.5 % LABORATORIES - [facility] Leukocytes 8.1 3.5 - [facility] 10.5 LABORATORIES - X10(9)/L [facility] Neutrophils 5.56 1.70 - [facility] 7.00 LABORATORIES - X10(9)/L [facility] Specimen Anatomical Collection Method Collection Time Receive d Time (Source) Location / / Volume Laterality 06/02/2016 3:23 AM 6 3:23 CO OP AM CO OP Mary Garcia M.D., Ph.D. LAB BLOOD ADD-ON Performing Organization Address City/State/ZIP Code Phon e Number [facility]IES - [address] [place] [address] [facility] Magnesium (06/02/2016 3:23 AM CO OP) P athologist Signature Magnesium, S 2.2 1.7 - 2.3 [facility] MG/DL LABORATORIES - [facility] Specimen Anatomical Collection Method Collection Time Receive d Time (Source) Location / / Volume Laterality 06/02/2016 3:23 AM 6 3:23 CO OP AM CO OP Mary Garcia M.D., Ph.D. LAB BLOOD ADD-ON Performing Organization Address City/State/ZIP Code Phon e Number [facility] - [address] [place] [address] [facility] Phosphorus Inorganic (06/02/2016 3:23 AM CO OP) Analysis Performed At Patho logist Time Signature Phosphorus 3.6 2.5 - 4.5 [facility] (Inorganic), S MG/DL LABORATORIES - [facility] Specimen Anatomical Collection Method Collection Time Receive d Time (Source) Location / / Volume Laterality 06/02/2016 3:23 AM 6 3:23 CO OP AM CO OP Mary Garcia M.D., Ph.D. LAB BLOOD ADD-ON Performing Organization Address City/State/ZIP Code Phon e Number [facility] - [address] documented in this encounter Visit Diagnoses Not on filedocumented in this encounter
--- OUTSIDE RECORDS SUMMARY | 2022-02-18 10:51 | XMS_ITS | Encounter Summary ---
:1945 Author Organization [facility] Address [address] [place] [address] Care Team Providers Name Role Phone Unavailable Primary Care Provider Unavailable Encounter Details Date Type Department Care Team Description 11/11/2020 Orders Only Department of Physical Jose Peng Medicine and Rehabilitation [facility] in [facility] [address] [facility] [address] [place] [address] [phone] (Wo rk) Social History Tobacco Use Types [...] do you attend christian or Never 2021 nondenominational services? Do you [...] place to sleep or slept in a custodial (including now)? Sex Assigned at Date Recorded Female 08/25/2021 9:30 PM CDT documented as of this encounter Plan of Treatment Not on filedocumented as of this encounter Visit Diagnoses Not on filedocumented in this encounter
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
[2022-02-18 13:07] LABS: Albumin* 3.7 g/dL (3.3-5.0); Chloride* 104 mmol/L (96-114); Sodium* 135 mmol/L (135-149)
[2022-02-18 13:08] LABS: Potassium* 4.4 mmol/L (3.6-5.1)
[2022-02-18 13:09] LABS: Cholesterol* 221 mg/dL (90-199)
[2022-02-18 13:10] LABS: Alkaline Phosphatase* 102 U/L (40-150); Aspartate Amino Transferase* 14 U/L (12-35); Bilirubin Total* 0.2 mg/dL (0.1-1.5); Blood Urea Nitrogen* 12 mg/dL (7-30); Carbon Dioxide* 28 mmol/L (20-32); Creatinine* 0.5 mg/dL (0.5-1.5); Estimated Glomerular Filt Rate 98 ml/min; Glucose* 99 mg/dL (60-115); Total Protein* 5.9 g/dL (6.0-8.3)
[2022-02-18 13:11] LABS: Alanine Aminotransferase* 10 U/L (4-35); Calcium* 8.7 mg/dL (8.4-10.6); HDL Cholesterol* 84 mg/dL (>=50); LDL Cholesterol Calculated 116 mg/dL (<100); Triglycerides* 104 mg/dL (40-149)
== END 2022-02-18 10:45 | disposition home or self-care (01) ==
PROVIDERS: PCP Internal Medicine; Visit Provider Internal Medicine
DX: E78.2 Mixed hyperlipidemia (principal); G40.909 Epilepsy, unspecified, not intractable, without status epilepticus
CPT/HCPCS: 80053; 80061

== ENCOUNTER 2022-05-07 14:50 | Outpatient (CLI) | payer MEDICARE, BC, SELFPAY ==
--- OUTSIDE RECORDS SUMMARY | 2022-05-07 14:56 | XMS_ITS | Clinical Summary ---
:[address] [facility] Address [address] [place] [address] Care Team Providers Name Role Phone Elsewhere, Pcp Primary Care Provider Unavailable Source Comments Patient records contain information from all sites at [facility]. For routine questions regarding patient records, call [phone] during business hours, M-F 8:00 AM - 5:00 PM Central Time. Record requests for emergency care only can be directed to [phone] at any time.[facility] Allergies No known active allergies Medications Medication [...] drinks on one occasion? No t asked Social Isolation Answer Date Recorded In a typical week, how many times do you More than three jeri es a week 08/26/2021 talk on the phone with family, friends, or neighbors? How often do you get together with friends Twice a week 08/26/2021 or relatives? How often do you attend buddhism or Never 2021 adventism services? Do you belong to any clubs or No 08/26/2021 organizations such as buddhism groups, unions, fraternal or athletic groups, or [...] Health Maintenance Due Date Last Done Comments Hepatitis C Screening 1945 Pneumococcal vaccine (65+ years) 07/04/2016 07/04/2015 (2 - PPSV23 if available, else PCV20) Depression Screening (Annual 06/13/2021 PHQ-2) DTaP,Tdap,and Td Vaccines (2 - Td 11/30/2027 11/29/2017 or Tdap) Zoster Vaccines Completed 04/19/2018, 01/16/2018 Fall Risk Screen (Annual) Completed 09/02/2021 COVID-19 Vaccine Completed 03/23/2022, 10/06/2021, 03/14/2021, Additional history exists Influenza Vaccine Completed 03/23/2022, 03/14/2021, 03/13/2020, Additional history exists Medical Devices Implanted Type Area Engagement Lead Device Shelf Model / Identifier Expiration Serial / Date Lot Kls-Plate 2.0 Mini Str 8ho Reg ; - [id number] [id number] Hardware Other /Legacy - Implanted: Qty: 1 on 04/10/1996 e.g. See Implant pins/screws/ Description rods Description: Device Engagement Lead - PASTORA Suresh andree';. Device Status Text - [id number]. 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 See document viewer. Advance Directives 01/26/2016 12:00 AM Legacy doc ument. See document viewer. Latest Code Status on File Code Status Date Activated Date Inactivated Comments Full Code 09/04/2021 3:15 PM 09/25/2021 7:30 PM Question Answer Comments Full Code: Discussed Code Status History Code Status Date Activated Date Inactivated Comments Full Code 09/02/2021 12:11 PM 09/04/2021 3:09 PM Question Answer Comments Full Code: Not Discussed Due to: Not medically appropriate Full Code 09/02/2021 7:24 AM 09/02/2021 12:11 PM Question Answer Comments Full Code: Not Discussed Due to: Patient not available Care Teams Feller Seam Operator Relationship Specialty Start Date End Date Elsewhere, Pcp PCP - General Internal Medicine 09/02/21
--- OUTSIDE RECORDS SUMMARY | 2022-05-07 14:56 | XMS_ITS | Clinical Summary ---
:1945 Author Organization [facility] [place] [address] Care Team Providers Name Role Phone Abdiel [...] 3-4 weeks as needed. Arin Sotomayor RN, SALES SERVICE REPRESENTATIVE AE-C cholecalciferol One time per week 0 [...] Comments Blood Pressure 146/78 08/06/2021 11:32 AM CLOSED CIRCUIT SCREEN WATCHER Pulse 72 08/06/2021 11:32 AM CLOSED CIRCUIT SCREEN WATCHER Temperature 36.5 ??C (97.7 ??F) 08/06/2021 11:32 AM CLOSED CIRCUIT SCREEN WATCHER Respiratory Rate 14 07/04/2013 7:52 PM CLOSED CIRCUIT SCREEN WATCHER Oxygen Saturation 98% 08/06/2021 11:32 AM CLOSED CIRCUIT SCREEN WATCHER Inhaled Oxygen Concentration - - Weight 66.9 kg (147 lb 6.4 oz) 03/02/2017 11:27 AM CDT Height 170.2 cm (5' 7) 03/02/2017 11:27 AM CDT Body Mass Index 23.09 03/02/2017 11:27 AM CDT Plan of Treatment Health Maintenance Due Date Last Done Comments Tdap 1957 Hepatitis C screening for age 0903/06/1964 18-79 Tetanus booster 1966 Zoster (shingles) series for age 0903/06/1996 50+ (1 of 2) DEXA/DXA scan for age 65+ 2011 Medicare Wellness for age 65+ 2011 Pneumococcal series for age 65+ (2 07/04/2016 07/04/2015 - PPSV23 if available, else PCV20) BMI (ht and wt on same day) for 03/02/2018 03/02/2017, 12/2016, age 18+ 07/06/2016, Additional history exists Depression screening for age 12+ 11/01/2018 11/01/2017, , 08/18/2015 COVID-19 vaccine series (4 - 05/09/2021 03/14/2021, 021, Booster for Pfizer series) 08/15/2020 Influenza for age 65+ 02/11/2022 03/30/2018, 03/02/2017, 04/19/2008, Additional history exists Results Not on filefrom Last 3 Months Insurance Payer Benefit Plan / Subscriber ID Effective Dates Phone Addre ss Type Group BLUE CROSS [place] BLUE [place]OSS [id number] 2021-Present [address] [address] [place], [place] ONLY [phone] Care Teams Benefits Counselor Relationship Specialty Start Date End Date Abdiel Llanos MD PCP - General Internal Medicine 07/22/21[address] [place] [address]
--- OUTSIDE RECORDS SUMMARY | 2022-05-07 14:56 | XMS_ITS | Encounter Summary ---
:1945 Author Organization [facility] Address [address] [place] [address] Care Team Providers Name Role Phone Elsewhere, Pcp Primary Care Provider Unavailable Reason for Visit Outpatient (Routine) - Closed Specialty Diagnoses / Referred By Contact Referred To Contact Procedures [facility] M.Basim [address] [place] [address] Referral ID Status Reason Start Date Expiration Date Visits Requ ested Visits Authorized [id number] Closed 09/15/2021 09/15/2022 1 1 Encounter Details Date Type Department Care Team Description 10/22/2021 Office Visit Department of Physical Depompolo, Unste adiness Gait Disorder Non Orthopedic (Primary Dx); Medicine and Jose Harrison M.D. 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 How often do you attend synagogue or Never 2021 orthodoxy services? Do you belong to any clubs or No 08/26/2021 organizations such as synagogue groups, unions, fraternal or athletic groups, or [...] place to sleep or slept in a [place] (including now)? Education Answer Date Recorded What [...] two week stay on inpatient rehabilitation at [facility]. She subsequently was discharged home to [...] Post documented in this encounter Care Teams Supervisor [employer] Relationship Specialty Start Date End Date Elsewhere, Pcp PCP - General Internal Medicine 09/02/21 documented as of this encounter
--- OUTSIDE RECORDS SUMMARY | 2022-05-07 14:56 | XMS_ITS | Encounter Summary ---
:1945 Author Organization [facility] Address [address] [place] [id number] Care Team Providers Name Role Phone Elsewhere, Pcp Primary Care Provider Unavailable Reason for Referral Outpatient (Routine) - Authorized Specialty Diagnoses / Procedures Referred By Contact Refer red To Contact Diagnoses Lack Of Coordination Decline Functional Status Imbalance Non Orthopedic Weakness General Unsteadiness Gait Disorder Non Orthopedic Niyah Early M.D. [address] [place] [phone] Referral ID Status Reason Start Expiration Visits Visits Date Date Requested Authorized [id number] Authorized Patient 09/21/2021 09/21/2022 1 1 Preference hysical Therapy (Routine) - Authorized Specialty Diagnoses / Procedures Referred By Contact Refer red To Contact Diagnoses Lack Of Coordination Decline Functional Status Imbalance Non Orthopedic Weakness General Unsteadiness Gait Disorder Non Orthopedic Stenosis Spinal Lumbar With Neurogenic Claudication Stenosis Spinal Niyah Early M.D. [address] [place] [address] [phone] Referral ID Status Reason Start Expiration Visits Visits Date Date Requested Authorized [id number] Authorized Patient 09/21/2021 09/21/2022 99 99 Preference Outpatient (Routine) - Closed Specialty Diagnoses / Referred By Contact Referred To Contact Procedures Physical Medicine and Niyah Early [facility] [address] [place] [phone] Referral ID Status Reason Start Date Expiration Date Visits Requ ested Visits Authorized [id number] Closed 09/15/2021 09/15/2022 1 1 Reason for Visit Auth/Cert Specialty Diagnoses / Procedures Referred By Contact Refer red To Contact Diagnoses Procedures ADMIT TO INPATIENT REHAB Referral ID Status Reason Start Date Expiration Date Visits Requ ested Visits Authorized [id number] 1 1 Encounter Details Date Type Department Care Team Description 09/04/2021 - Hospital Encounter [facility] Javan Cardenas M.D. [address] [place] [phone] Laminectomy Lumbar Status Post (Primary Dx); 09/[facility]21 [facility] [address] [place] [phone] Lack Of Coordination; [facility] [address] [place] [phone] Decline Functional Status; [facility] [address] [place] [address] [phone] Imbalance Non Orthopedic; Fourth Floor Calderon Schultz M.D. [address] [place] [phone] Weakness General; [address] [place] [address] Unsteadiness Gait Disorder N on Orthopedic; [place], [place] Stenosis Spina l Lumbar With Neurogenic Claudication; [phone] Stenosis Spinal [phone] Social History Tobacco Use Types Packs/Day Years [...] or relatives? How often do you attend mandaen or Never 2021 confucianism services? Do you belong to any clubs or No 08/26/2021 organizations such as mandaen groups, unions, fraU.S. Nursing Corporation or athletic groups, or school groups? How [...] PM CDT DISCHARGE SUMMARY BRIEF OVERVIEW Hospital: [facility] Discharge Provider: Teddy Avendano M.D. Primary Team: RST [facility] Physical Therapy [address] [facility], [facility] [place] [address] Admission Date: 09/04/2021 Discharge Date: 09/25/2021 PRINCIPAL [...] of this hospitalization and to establish a terminal operations supervisor management plan. All medication changes should be [...] Mrs. Aurora Langley is a 76-year-old right-handed, Citizen Of [place]-speaking woman with past medical history of TBI with residual posttraumatic epilepsy, right spastic hemiparesis and expressive aphasia status post TOWER WATCHMAN shunt placement in 1995 and lumbar spinal [...] lumbar decompression laminectomy. She was admitted to [facility] on September 02 for planned lumbar decompression [...] dismiss home with . They live in [place], [place] in a handicap-accessible home. She has [...] nerve deficits. LANGUAGE/SPEECH: Limited verbal responses in Andorran, uses assistance for translation. Responds appropriately to [...] IP CONSULT TO NEUROLOGY IP CONSULT TO CAFE LEAD WOUND CARE CONDITION AT DISCHARGE Improved, medically [...] CURRENT FUNCTIONAL STATUS: Patient's first language is Citizen [place], but she does understand Andorran. is available for interpretation as needed. provides [...] TheraBands for graded resistance. Patient benefits from public weigher resistance for lifting actions and greater resistance [...] by Fanny Deal M.S., O.T. Contact information: [facility], [address], documented in this [...] Neuromuscular re-education, Gait training, Self-care/home management, Orthosis [id number]-daqiexe Other PT Interventions: Seating Clinic (on rehab unit) ADVISORY SOFTWARE ENGINEER Visit Trackin Time Spent with Patient Therapeutic [...] 09/25/2021 8:18 AM CDT Occupational Therapy Rehabilitation [facility] Inpatient Progress Note SUBJECTIVE Patient's Name: [...] verbalized understanding. Pressure Relief Therapist [facility] wheelchair cushion for appropriate pressure [...] Comorbid Conditions: Other (Comment), Cerebrovascular accident (see [facility] for full medical history) Personal Factors: Balance [...] Mrs. Aurora Langley is a 76-year-old, right-handed, Citizen [place]-speaking woman with past medical history of TBI with residual posttraumatic epilepsy, right spastic hemiparesis and expressive aphasia s/p TOWER WATCHMAN shunt (1995) and lumbar spinal stenosis now [...] included: patient, family member(s), physician, bedside nurse, customer care representative, physical therapist, occupational therapist and Social work. [...] Mrs. Aurora Langley is a 76-year-old, right-handed, Citizen [place]-speaking woman with past medical history of TBI with residual posttraumatic epilepsy, right spastic hemiparesis and expressive aphasia s/p TOWER WATCHMAN shunt (1995) and lumbar spinal stenosis now [...] [place] [facility] [phone] with any questions or concerns. ?? Niyah [...] of the bed OBJECTIVE ankle foot orthosis japanese knee cage donned prior to arrival and [...] room initially; transferring via shannan stedy wheelchair<=>commode. [facility] transfers and is proficient. LE stretching/range of motion/neuromuscular reeducation performed. Gait at hemirail with max A. NuStep X 5' with bilat Les and L UE. Plan to continue per plan of care to increase safe mob and insure [facility] confident w all cares. Barriers to [...] Neuromuscular re-education, Gait training, Self-care/home management, Orthosis ghfuogytfmy-bnntyfaf-xprojbt Other PT Interventions: Seating Clinic (on rehab unit) Time Spent with Patient Therapeutic Interventions Gait Training (min): 40 min Neuromuscular Re-Education (min): 30 min Therapeutic Exercise (min): 20 min Time Tracking Total Timed Units (min): 90 min Total Treatment Time (min): 90 min PT Individual : 90 Minutes Kyra Conroy P.T. Fanny Deal M.S., O.T. - 09/24/2021 8:31 AM CDT Occupational Therapy [facility] Hospital Inpatient [...] TheraBands for graded resistance. Patient benefits from public weigher resistance for lifting actions and greater resistance for pulling actions. Recommend anchoring Therabands on a chair, closed door, or with assistance from caregiver to create resistance. Complete 3 sets of 10 reps, 3x/week: ??? Shoulder flexion and extension ??? Shoulder abduction ??? Elbow flexion and extension Provided Shoulder Strengthening Exercises Using an Elastic Band (Seated) ([id number]) for improved carry-over and hand off for home-based occupational therapy. Neuro Re-Education Instructed patient on seated and standing toe-taps onto 4 block to facilitate L<>R weight shifting needed for functional transfers with Tmamie. Patient required moderate-maximum assist x1 forstanding with [...] Comorbid Conditions: Other (Comment), Cerebrovascular accident (see [facility] for full medical history) Personal Factors: Balance [...] Mrs. Aurora Langley is a 76-year-old, right-handed, Citizen [place]-speaking woman with past medical history of TBI with residual posttraumatic epilepsy, right spastic hemiparesis and expressive aphasia s/p TOWER WATCHMAN shunt (1995) and lumbar spinal stenosis now [...] Mrs. Aurora Langley is a 76-year-old, right-handed, Citizen [place]-speaking woman with past medical history of TBI with residual posttraumatic epilepsy, right spastic hemiparesis and expressive aphasia s/p TOWER WATCHMAN shunt (1995) and lumbar spinal stenosis now [...] home with family support Please contact the [facility] [place] [phone] with any questions or concerns. ?? Niyah [...] Intake/Output Summary (Last 24 hours) at 09/25/2021 4006 Last data filed at 09/25/2021 1200 Gross [...] 09/23/2021 12:17 PM CDT Occupational Therapy Rehabilitation [facility] Inpatient Progress Note SUBJECTIVE Patient's Name: Aurora Lnagley Reason for Referral: OT Evaluate and Treat: [...] breaks in between and with L<>R approaches. [place] setup for bed transfers are the following: ?? (1) get into bed with low-pivot transfer towards the left with use of bed rail (2) get out of bed with low-pivot transfer towards the right with use of wall railing installed on bedroom wall ?? Patient's was pleased with performance and purchased a bed rail from [employer] at end of session. Patient and patient's understanding that they may use SaraStedy if the above setup does not work long-term. Patient/Family Education: bathroom equipment, functional transfers, bed rail for bed transfers Education Provided to: Dafneta and Learner's Response: Able to demonstrate, Requires [...] Comorbid Conditions: Other (Comment), Cerebrovascular accident (see [facility] for full medical history) Personal Factors: Balance [...] min Fanny Deal M.S., O.T. Kyra Conroy PMya. - 09/23/2021 11:43 AM CDT Physical Therapy Rehabilitation [facility] Inpatient Treatment SUBJECTIVE Patient's Name: Aurora [...] Neuromuscular re-education, Gait training, Self-care/home management, Orthosis [id number]-metuoyuh-cmznyfv Time Spent with Patient Therapeutic Interventions Gait Training (min): 30 min Neuromuscular Re-Education (min): 30 min Therapeutic Activity (min): 30 min Time Tracking Total Timed Units (min): 90 min Total Treatment Time (min): 90 min PT Individual : 90 Minutes Kyra Conroy P.T. Niyah Early M.D. - 09/23/2021 7:08 AM CDT SUBJECTIVE Mrs. Aurora Langley is a 76-year-old, right-handed, Citizen [place]-speaking woman with past medical history of TBI with residual posttraumatic epilepsy, right spastic hemiparesis and expressive aphasia s/p TOWER WATCHMAN shunt (1995) and lumbar spinal stenosis now status post L2-L5 lumbar laminectomy on 09/02/[address] Castellon. She is admitted to acute inpatient rehabilitation for lower extremity weakness and impairments in gait and ADL performance. Aurora is pleased with her progress and she and Jenniferi expressed to the entire team this morning [...] included: patient, family member(s), physician, bedside nurse, customer care representative, physical therapist, occupational therapist and Social work. [...] Mrs. Aurora Langley is a 76-year-old, right-handed, Citizen [place]-speaking woman with past medical history of TBI with residual posttraumatic epilepsy, right spastic hemiparesis and expressive aphasia s/p TOWER WATCHMAN shunt (1995) and lumbar spinal stenosis now [...] [place] [phone] with any questions or concerns. ?? Niyah [...] 09/22/2021 4:15 PM CDT Physical Therapy Rehabilitation [facility] Inpatient Treatment SUBJECTIVE Patient's Name: Aurora [...] Comorbid Conditions: Other (Comment), Cerebrovascular accident (see [facility] for full medical history) Personal Factors: Balance [...] Neuromuscular re-education, Gait training, Self-care/home management, Orthosis tqmjvcpysdu-izlfluac-njnqthn ADVISORY SOFTWARE ENGINEER Visit Trackin Time Spent with Patient Therapeutic Interventions Neuromuscular Re-Education (min): 26 min Therapeutic Activity (min): 16 min Therapeutic Exercise (min): 25 min Wheelchair Management (min): 23 min Time Tracking Total Timed Units (min): 90 min Total Treatment Time (min): 90 min PT Individual : 90 Minutes Denise Macedo P.T.A. Niyah Early M.D. - 09/22/2021 7:15 AM CDT SUBJECTIVE Mrs. Aurora Langley is a 76-year-old, right-handed, Citizen [place]-speaking woman with past medical history of TBI with residual posttraumatic epilepsy, right spastic hemiparesis and expressive aphasia s/p TOWER WATCHMAN shunt (1995) and lumbar spinal stenosis now [...] Mrs. Aurora Langley is a 76-year-old, right-handed, Citizen [place]-speaking woman with past medical history of TBI with residual posttraumatic epilepsy, right spastic hemiparesis and expressive aphasia s/p TOWER WATCHMAN shunt (1995) and lumbar spinal stenosis now [...] [place] [facility] [phone] with any questions or concerns. ?? Niyah [...] She is now able to do a bsu-rb-fkhky transfer with moderate assistance and to walk [...] 09/22/2021 6:58 AM CDT Occupational Therapy Rehabilitation [facility] Inpatient Progress Note SUBJECTIVE Patient's Name: [...] Patient and return demonstrated good use of Sar[employer]Mine[employer]y x1 to perform toilet transfer. Patient able [...] breaks in between and with L<>R approaches. [place] setup for bed transfers are the following: [...] Comorbid Conditions: Other (Comment), Cerebrovascular accident (see [facility] for full medical history) Personal Factors: Balance [...] stand pivot transfers; Santiago Mayo PT for ADVISORY SOFTWARE ENGINEER 6th treatment visit Assessment Patient continues to [...] Comorbid Conditions: Other (Comment), Cerebrovascular accident (see [facility] for full medical history) Personal Factors: Balance [...] Neuromuscular re-education, Gait training, Self-care/home management, Orthosis onpvuwflmxp-kxwvdcgu-zyiaicl ADVISORY SOFTWARE ENGINEER Visit Trackin Time Spent with Patient Therapeutic [...] Physical Medicine and Rehabilitation Interdisciplinary Team Conference [facility] 09/21/2021 11:52 AM CDT Patient Name: Aurora Langley Admit Date/Time: 09/04/2021 3:09 PM Date of : 1945 Sex: Female Room/Bed: 215/215-P Etiologic Diagnosis: Laminectomy Lumbar Status Post Impairment Group: Orthopaedic Disorders Payor: Payor: MEDICARE / Plan: MEDICARE A AND B / Product Type: Medicare / Anticipated Discharge Date: 09/25/21 Rehab Team Conference Participation Physician Pig Lead Melter Helper: Dr. Teddy Avendano Senior Resident Present: Dr. Niyah Augustin Nursing Pig Lead Melter Helper: Sam Barnes RN CM/SW Pig Lead Melter Helper: MICAH Benjamin CM/SW Second Pig Lead Melter Helper: VICK Borrero PT Pig Lead Melter Helper: Chuck Bermudez PT OT Pig Lead Melter Helper: Fanny Deal OT Other (Discipline and Name): [...] may be able to get assistance from [facility] for respite care as needed. Education [...] mg/d Manuel Hughes, Vivek.Ph. ?? Fanny Deal M.Mary., O.T. - 09/21/2021 8:47 AM CDT Occupational Therapy Rehabilitation [facility] Inpatient Progress Note SUBJECTIVE Patient's Name: [...] Comorbid Conditions: Other (Comment), Cerebrovascular accident (see [facility] for full medical history) Personal Factors: Balance [...] Mrs. Aurora Langley is a 76-year-old, right-handed, Citizen [place]-speaking woman with past medical history of TBI with residual posttraumatic epilepsy, right spastic hemiparesis and expressive aphasia s/p TOWER WATCHMAN shunt (1995) and lumbar spinal stenosis now [...] are particularly loose. She assures Kirk and Andie that there are not any sensory changes [...] the weather and share a cappuccino at [employer]. While out, they had to stop at [...] appreciated. Observed sit to stand transfer to [facility] with significant improvement in Aurora's ability to bear weight through her lower extremities and pull herself to standing to accommodate the transfer. ASSESSMENT / PLAN Mrs. Aurora Langley is a 76-year-old, right-handed, Citizen [place]-speaking woman with past medical history of TBI with residual posttraumatic epilepsy, right spastic hemiparesis and expressive aphasia s/p TOWER WATCHMAN shunt (1995) and lumbar spinal stenosis now [...] [place] [phone] with any questions or concerns. ?? Niyah [...] She is now able to do a bgv-ex-hjyhi transfer with minimal assistance and to walk [...] for respite care via the [facility] program. I will complete a [...] Mrs. Aurora Langley is a 76-year-old, right-handed, Citizen [place]-speaking woman with past medical history of TBI with residual posttraumatic epilepsy, right spastic hemiparesis and expressive aphasia s/p TOWER WATCHMAN shunt (1995) and lumbar spinal stenosis now [...] Mrs. Aurora Langley is a 76-year-old, right-handed, Citizen Of [place]-speaking woman with past medical history of TBI with residual posttraumatic epilepsy, right spastic hemiparesis and expressive aphasia s/p TOWER WATCHMAN shunt (1995) and lumbar spinal stenosis now [...] [place] [phone] with any questions or concerns. ?? Niyah [...] 4:12 PM CDT Encounter: Follow-Up Situation: The policy writer sales engaged Mr. Langley in the hallway and was invited for a visit. Mrs. Langleywas seated in her recliner, alert and warmly welcoming. Family: Spouse, Kirk, was present Carole Tradition: Roman Catholic Spiritual Care: The policy writer sales shared the schedule. Prayer was welcomed and provided. Mrs. Langley anticipates discharge on September 22. Plan: Will remain available for spiritual care as needed or requested. Chaplains can be contacted bypaging [phone] ([facility]) or [phone] ([place]). Angela Mejia PNasima, D.P.T. - 09/19/2021 3:21 PM CDT Physical Therapy Rehabilitation [facility] Inpatient Treatment Therapy session performed at [...] Comorbid Conditions: Other (Comment), Cerebrovascular accident (see [facility] for full medical history) Personal Factors: Balance [...] Neuromuscular re-education, Gait training, Self-care/home management, Orthosis sgcgbtwvshc-csknmsvd-dwzgqzk ADVISORY SOFTWARE ENGINEER Visit Trackin Time Spent with Patient Therapeutic Interventions Gait Training (min): 15 min Therapeutic Activity (min): 25 min Time Tracking Total Timed Units (min): 40 min Total Treatment Time (min): 40 min PT Individual : 40 Minutes Angela Mejia P.T., D.P.T. Yun Barboza O.T. - 09/19/2021 12:49 PM CDT Occupational Therapy Rehabilitation [facility] Inpatient Progress Note SUBJECTIVE Patient's Name: [...] chair as bed. Completed 3 trials with Jenniferi's assist, making adjustments as needed, with each [...] Comorbid Conditions: Other (Comment), Cerebrovascular accident (see [facility] for full medical history) Personal Factors: Balance [...] Mrs. Aurora Langley is a 76-year-old, right-handed, Citizen [place]-speaking woman with past medical history of TBI with residual posttraumatic epilepsy, right spastic hemiparesis and expressive aphasia s/p TOWER WATCHMAN shunt (1995) and lumbar spinal stenosis now [...] edema appreciated. ASSESSMENT / PLAN Mrs. Aurora Lagnley is a 76-year-old, right-handed, Citizen [place]-speaking woman with past medical history of TBI with residual posttraumatic epilepsy, right spastic hemiparesis and expressive aphasia s/p TOWER WATCHMAN shunt (1995) and lumbar spinal stenosis now [...] [place] [facility] [place] [phone] with any questions or concerns. ?? Niyah [...] this week. Merrick Mattson M.D. Denise Macedo P.TRico - 09/18/2021 4:26 PM CDT Physical Therapy Rehabilitation [facility] Inpatient Treatment SUBJECTIVE Patient's Name: Aurora [...] Comorbid Conditions: Other (Comment), Cerebrovascular accident (see [facility] for full medical history) Personal Factors: Balance [...] Neuromuscular re-education, Gait training, Self-care/home management, Orthosis nbtboebtbwj-ynklvzlk-czirlcj ADVISORY SOFTWARE ENGINEER Visit Trackin Time Spent with Patient Therapeutic Interventions Therapeutic Activity (min): 19 min Therapeutic Exercise (min): 27 min Time Tracking Total Timed Units (min): 91 min Total Treatment Time (min): 91 min PT Individual : 46 Minutes Denise Macedo P.TRico Fanny Deal M.S., O.T. - 09/18/2021 4:08 PM CDT Occupational Therapy Rehabilitation [facility] Inpatient Progress Note SUBJECTIVE Patient's Name: [...] Comorbid Conditions: Other (Comment), Cerebrovascular accident (see [facility] for full medical history) Personal Factors: Balance [...] Mrs. Aurora Langley is a 76-year-old, right-handed, Citizen [place]-speaking woman with past medical history of TBI with residual posttraumatic epilepsy, right spastic hemiparesis and expressive aphasia s/p TOWER WATCHMAN shunt (1995) and lumbar spinal stenosis now [...] included: patient, family member(s), physician, bedside nurse, customer care representative, physical therapist, occupational therapist and Social work. [...] Mrs. Aurora Langley is a 76-year-old, right-handed, Citizen [place]-speaking woman with past medical history of TBI with residual posttraumatic epilepsy, right spastic hemiparesis and expressive aphasia s/p TOWER WATCHMAN shunt (1995) and lumbar spinal stenosis now [...] [place] [phone] with any questions or concerns. ?? Niyah [...] represent the least costly options. Denise Macedo P.TJimenez. - 09/17/2021 3:48 PM CDT Physical Therapy [...] foot orthosis Intervention: Fabrication Education: Fitting Vendor: [employer] Comments: Patient fitted for R solid [...] was able to progress ambulation distance at [facility] rail with moderate assistance x1 and a wheelchair follow. Patient will continue to benefit from skilled physical therapy interventions to learn safe stand pivot transfers to reduce caregiver burden, neuromuscular re- education, and functional mobility. Barriers to Discharge Home: Current functional status, Safety concerns, Fall risk Barriers to Discharge Comments: Requires assist of two for mobilizing Comorbid Conditions: Other (Comment), Cerebrovascular accident (see [facility] for full medical history) Personal Factors: Balance [...] Neuromuscular re-education, Gait training, Self-care/home management, Orthosis ghloacburfv-jheumohb-ddgzwpg ADVISORY SOFTWARE ENGINEER Visit Trackin Time Spent with Patient Therapeutic Interventions Neuromuscular Re-Education (min): 17 min Therapeutic Activity (min): 47 min Therapeutic Exercise (min): 26 min Time Tracking Total Timed Units (min): 90 min Total Treatment Time (min): 90 min PT Individual : 90 Minutes Femi FranzTRico Niyah Early M.D. - 09/17/2021 7:33 AM CDT SUBJECTIVE Mrs. Aurora Langley is a 76-year-old, right-handed, Citizen [place]-speaking woman with past medical history of TBI with residual posttraumatic epilepsy, right spastic hemiparesis and expressive aphasia s/p TOWER WATCHMAN shunt (1995) and lumbar spinal stenosis now [...] Mrs. Aurora Langley is a 76-year-old, right-handed, Citizen Of [place]-speaking woman with past medical history of TBI with residual posttraumatic epilepsy, right spastic hemiparesis and expressive aphasia s/p TOWER WATCHMAN shunt (1995) and lumbar spinal stenosis now [...] [facility] [place] [phone] with any questions or concerns. ?? Niyah [...] 09/17/2021 6:37 AM CDT Occupational Therapy Rehabilitation [facility] Inpatient Progress Note SUBJECTIVE Patient's Name: [...] in baking brownies. Therapist setup task with tmge-wy-yxtt instruction and facilitation of patient's participation with yjca-tusl-wuyw assistance. Patient was able to perform supination/pronation [...] Comorbid Conditions: Other (Comment), Cerebrovascular accident (see [facility] for full medical history) Personal Factors: Balance [...] Comorbid Conditions: Other (Comment), Cerebrovascular accident (see [facility] for full medical history) Personal Factors: Balance [...] Neuromuscular re-education, Gait training, Self-care/home management, Orthosis mjtqybnkpas-lytecusv-xjqhwwv ADVISORY SOFTWARE ENGINEER Visit Trackin Time Spent with Patient Therapeutic [...] 09/16/2021 8:34 AM CDT Occupational Therapy Rehabilitation [facility] Inpatient Progress Note SUBJECTIVE Patient's Name: [...] phone. Therapist was unable to initiate iPAd mirror machine feeder due to technical difficulties. Precautions Other Precautions: [...] posture. Patient has otherwise been using a WebChalety x1-2. Orthosis Management Patient agreeable to donning [...] Comorbid Conditions: Other (Comment), Cerebrovascular accident (see [facility] for full medical history) Personal Factors: Balance [...] Mrs. Aurora Langley is a 76-year-old, right-handed, Citizen [place]-speaking woman with past medical history of TBI with residual posttraumatic epilepsy, right spastic hemiparesis and expressive aphasia s/p TOWER WATCHMAN shunt (1995) and lumbar spinal stenosis now [...] included: patient, family member(s), physician, bedside nurse, customer care representative, physical therapist, occupational therapist and Social work. [...] Mrs. Aurora Langley is a 76-year-old, right-handed, Citizen [place]-speaking woman with past medical history of TBI with residual posttraumatic epilepsy, right spastic hemiparesis and expressive aphasia s/p TOWER WATCHMAN shunt (1995) and lumbar spinal stenosis now [...] CODE as discussed with patient. Surgical Incision [place]: remove today Diet: Regular DVT prophylaxis: Lovenox Bowel: bowel medication regimen as needed Bladder: currently voiding at her baseline Disposition: anticipate discharge September 22; goal to home with family support Please contact the PMR [place] [phone] with any questions or concerns. ?? Niyah [...] 09/15/2021 3:51 PM CDT Physical Therapy Rehabilitation [facility] Inpatient Treatment SUBJECTIVE Patient's Name: Aurora [...] Comorbid Conditions: Other (Comment), Cerebrovascular accident (see [facility] for full medical history) Personal Factors: Balance [...] Neuromuscular re-education, Gait training, Self-care/home management, Orthosis cpdmezetigl-ngfawgrq-ejgabbi ADVISORY SOFTWARE ENGINEER Visit Trackin Time Spent with Patient Therapeutic Interventions Neuromuscular Re-Education (min): 30 min Therapeutic Activity (min): 30 min Therapeutic Exercise (min): 30 min Time Tracking Total Timed Units (min): 90 min Total Treatment Time (min): 90 min PT Individual : 90 Minutes Denise Macedo P.TRico [place] Major R.N. - 09/15/2021 2:09 PM CDT [facility] Wound RN consulted to assess Aurora Langley skin alterations. Wound assessment, pain, and [place] noted in the flowsheet. Unable to obtain consent for photography. No skin concerns at this time. History: Aurora Langley is a 76 y.o. female past medical history of TBI with residual posttraumatic epilepsy, right spastic hemiparesis and expressive aphasia s/p TOWER WATCHMAN shunt (1995) and lumbar spinal stenosis now status post L2-L5 lumbar laminectomy on 09/02/2021. Assessment: The patient was assessed in bed, assist of one. The patient is agreeable to assessment, no reports of pain during assessment. 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 Teddy Avendano Senior Resident Present: Dr. Salvatore Lou Nursing Pig Lead Melter Helper: Sam Barnes RN CM/SW Pig Lead Melter Helper: MICAH Benjamin CM/SW Second Pig Lead Melter Helper: Hellen Odell BRAKE REPAIRER RAILROAD PT Pig Lead Melter Helper: Annabel Richey PT OT Pig Lead Melter Helper: Marianela Veliz OT Other (Discipline and Name): [...] Mrs. Aurora Langley is a 76-year-old, right-handed, Citizen [place]-speaking woman with past medical history of TBI with residual posttraumatic epilepsy, right spastic hemiparesis and expressive aphasia s/p TOWER WATCHMAN shunt (1995) and lumbar spinal stenosis now [...] Mrs. Aurora Langley is a 76-year-old, right-handed, Citizen [place]-speaking woman with past medical history of TBI with residual posttraumatic epilepsy, right spastic hemiparesis and expressive aphasia s/p TOWER WATCHMAN shunt (1995) and lumbar spinal stenosis now [...] [place] [phone] with any questions or concerns. ?? Niyah [...] 09/15/2021 7:01 AM CDT Occupational Therapy Rehabilitation [facility] Inpatient Progress Note SUBJECTIVE Patient's Name: [...] from chair<>commode and static sit<>stands, with additional radiology assistant required for clothing management instanding prior [...] Comorbid Conditions: Other (Comment), Cerebrovascular accident (see [facility] for full medical history) Personal Factors: Balance [...] quads, knee flexion, and hip abduction exercises; [place] band with plantar flexion) Sets/Repetitions: x10 each [...] Comorbid Conditions: Other (Comment), Cerebrovascular accident (see [facility] for full medical history) Personal Factors: Balance [...] Neuromuscular re-education, Gait training, Self-care/home management, Orthosis [id number]-otxdgmpg-pcelybj ADVISORY SOFTWARE ENGINEER Visit Trackin Time Spent with Patient Therapeutic [...] mg/d Manuel Hughes, R.Ph. ?? Carolina Veliz M.Mary., O.T. - 09/14/2021 8:30 AM CDT Occupational [...] report and pictures provided. 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 Aurora Langley is a 76-year-old, right-handed, Citizen [place]-speaking woman with past medical history of TBI with residual posttraumatic epilepsy, right spastic hemiparesis and expressive aphasia s/p TOWER WATCHMAN shunt (1995) and lumbar spinal stenosis now [...] Mrs. Aurora Langley is a 76-year-old, right-handed, Citizen [place]-speaking woman with past medical history of TBI with residual posttraumatic epilepsy, right spastic hemiparesis and expressive aphasia s/p TOWER WATCHMAN shunt (1995) and lumbar spinal stenosis now [...] [place] [phone] with any questions or concerns. ?? Niyah [...] 09/13/2021 7:25 AM CDT Occupational Therapy [facility] Hospital [facility]patient [...] Delivery: Therapist Assisted UE Dressing Items Included: motor overhauler shirt UE Dressing Level of Assistance: moderate assist UE Dressing Location: Chair UE Dressing Comments: [place] shirt and bra with min to moderate [...] ADL re-training and caregiver training. Transfer to [facility] for bathing via Shannan Biswas on this [...] Comorbid Conditions: Other (Comment), Cerebrovascular accident (see [facility] for full medical history) Personal Factors: Balance [...] Mrs. Aurora Langley is a 76-year-old, right-handed, Citizen [place]-speaking woman with past medical history of TBI with residual posttraumatic epilepsy, right spastic hemiparesis and expressive aphasia s/p TOWER WATCHMAN shunt (1995) and lumbar spinal stenosis now [...] Mrs. Aurora Langley is a 76-year-old, right-handed, Citizen [place]-speaking woman with past medical history of TBI with residual posttraumatic epilepsy, right spastic hemiparesis and expressive aphasia s/p TOWER WATCHMAN shunt (1995) and lumbar spinal stenosis now [...] 09/12/2021 11:42 AM CDT SUBJECTIVE Mrs. Aurora Langley is a 76-year-old, right-handed, Citizen [place]-speaking woman with past medical history of TBI with residual posttraumatic epilepsy, right spastic hemiparesis and expressive aphasia s/p TOWER WATCHMAN shunt (1995) and lumbar spinal stenosis now [...] detail as she was eating breakfast. Extremities: Tajik knee cage brace on right knee and ankle brace on right ankle. Right upper extremity held in flexion position which is baseline. ASSESSMENT / PLAN Mrs. Aurora Langley is a 76-year-old, right-handed, Citizen [place]-speaking woman with past medical history of TBI with residual posttraumatic epilepsy, right spastic hemiparesis and expressive aphasia s/p TOWER WATCHMAN shunt (1995) and lumbar spinal stenosis now [...] to home with family support Amparo Farmer P.Ashley., D.P.T. - 09/12/2021 11:00 AM CDT Physical Therapy Rehabilitation [facility] Inpatient Treatment SUBJECTIVE Patient's Name: Aurora [...] with. Education Provided to: Aurora and spouse, Jenniferandie Learner's Response: Able to demonstrate and Requires [...] Comorbid Conditions: Other (Comment), Cerebrovascular accident (see [facility] for full medical history) Personal Factors: Balance [...] Neuromuscular re-education, Gait training, Self-care/home management, Orthosis bxdbpjgswob-vzaeloaj-hjlimes Time Spent with Patient Therapeutic Interventions Neuromuscular [...] about patient's nutritional care please contact pager [phone] on weekdays or [phone] on weekends/holidays. Madhavi Scales, Pharm.D., R.Ph. - [...] quads, knee flexion, and hip abduction exercises; [place] band with plantar flexion) Sets/Repetitions: x20 each [...] functional mobility Education Provided to: Aurora and spouse, Yogi Learner's Response: Able to demonstrate and Requires [...] Comorbid Conditions: Other (Comment), Cerebrovascular accident (see [facility] for full medical history) Personal Factors: Balance [...] Neuromuscular re-education, Gait training, Self-care/home management, Orthosis qcemxcazxcy-rlmnkwzv-zubdvik Time Spent with Patient Therapeutic Interventions Neuromuscular [...] Comorbid Conditions: Other (Comment), Cerebrovascular accident (see [facility] for full medical history) Personal Factors: Balance [...] Mrs. Aurora Langley is a 76-year-old, right-handed, Citizen [place]-speaking woman with past medical history of TBI with residual posttraumatic epilepsy, right spastic hemiparesis and expressive aphasia s/p TOWER WATCHMAN shunt (1995) and lumbar spinal stenosis now [...] Incontinence: No (09/11/21 0415 : Beth Langston RMyeshaN.) Unmeasured Urine Occurrence: 1 (09/11/21 0607 : [...] with the words to say, translates into Citizen [place] for her when needed Extremities: Tajik knee cage brace on right knee and ankle brace on right ankle. Right upper extremity held in flexion position which is baseline. Diagnostics I reviewed the imaging studies and agree with the interpretation as recorded. I reviewed the pertinent laboratory data and diagnostic data. ASSESSMENT / PLAN Mrs. Aurora Langley is a 76-year-old, right-handed, Citizen [place]-speaking woman with past medical history of TBI with residual posttraumatic epilepsy, right spastic hemiparesis and expressive aphasia s/p TOWER WATCHMAN shunt (1995) and lumbar spinal stenosis now [...] 6 weeks post-op which will be May 4th - Pain control regimen includes: Tylenol 1000 [...] CODE as discussed with patient. Surgical Incision [place]: can be removed 14 days post-op (09/16) Diet: Regular DVT prophylaxis: Lovenox Bowel: bowel medication regimen as needed Bladder: currently voiding at her baseline Disposition: anticipate discharge September 22; goal to home with family support ?? Please contact the PMR Brain [place] [phone] with any questions or concerns. Niyah Early [...] does continue to require max assist for plv-op-zxynn transfers with use of a Thera steady [...] 11:07 AM CDT Encounter: Unit Ministry Situation: Aurora Coleman, is a pleasant, Citizen [place]-speaking woman with a medical history of TBI and residual conditions. Presently, she is in post- surgical rehabilitation therapy. Family: , Kirk, is a primary support. The couple have many friends and support systems in [facility] and [place]. Carole Tradition: Episcopal - Roman Catholic. When Mrs. Langley was a patient in the late the coupleattended druze at [facility], which is a significant place to their carole journey. They attend the live-broadcast of [employer] druze through [facility] [employer]. The policy writer sales gave them a schedule of druze services and resources for prayer and devotion. [...] hope is to prolong the need for detention care. Spiritual care visits are appreciated. Plan: Patient and family were informed of 24/7 spiritual care availability. Will remain available for spiritual care as needed or requested. Chaplains can be contacted by [employer] [phone] ([place]). Amparo Farmer P.T., D.P.T. - 09/10/2021 10:30 [...] Sit to stand machine, Single rail (Shannan Stecarline) Level of Assistance: Maximal assistance Assessment/Delivery: Assessed, [...] Elastic band (comment), Active motion against gravity ([place] resistance band utilized for long-arc quads, knee [...] traveled 0.10 miles. Required one rest break jail. PT providing light tactile assistance to maintain [...] Comorbid Conditions: Other (Comment), Cerebrovascular accident (see [facility] for full medical history) Personal Factors: Balance [...] Neuromuscular re-education, Gait training, Self-care/home management, Orthosis dtizradwztt-vrdkjbhu-supofgu Time Spent with Patient Therapeutic Interventions Neuromuscular Re-Education (min): 15 min Therapeutic Activity (min): 40 min Therapeutic Exercise (min): 25 min Wheelchair Management (min): 10 min Time Tracking Total Timed Units (min): 90 min Total Treatment Time (min): 90 min PT Individual : 90 Minutes Amparo Farmer P.T., Cristian.P.TMyesha Carolina Veliz M.S., O.T. - 09/10/2021 8:55 AM CDT Occupational Therapy Rehabilitation [facility] Inpatient Progress Note SUBJECTIVE Patient's Name: [...] Comorbid Conditions: Other (Comment), Cerebrovascular accident (see [facility] for full medical history) Personal Factors: Balance [...] Mrs. Aurora Langley is a 76-year-old, right-handed, Citizen [place]-speaking woman with past medical history of TBI with residual posttraumatic epilepsy, right spastic hemiparesis and expressive aphasia s/p TOWER WATCHMAN shunt (1995) and lumbar spinal stenosis now [...] Last Stool Occurrence: 1 (09/09/21 1500 : Feliicta Boyd, R.N.) Intake/Output Summary (Last 24 hours) at 09/10/2021 0739 Last data filed at 09/10/2021 0500 Gross per 24 hour Intake 1270 ml Output 100 ml Net 1170 ml Bowel Incontinence: No (09/09/21 1500 : Felciita Boyd, R.N.) Unmeasured Urine Occurrence: 1 (09/10/21 0500 : [facility], R.N., [facility]) Urinary Incontinence: Yes (09/10/21 0500 : Theo Mckeon, R.N., [facility]) Physical Exam: General: Pleasant woman, seated up to chair at bedside on FaceTime with a friend in [place], no acute distress HEENT: Normocephalic, atraumatic. Hearing [...] with the words to say, translates into Citizen [place] for her when needed Extremities: Taj[place] knee cage brace on right knee and ankle brace on right ankle. Right upper extremity held in flexion position which is baseline. Diagnostics I reviewed the imaging studies and agree with the interpretation as recorded. I reviewed the pertinent laboratory data and diagnostic data. September 10, 2021 CBC demonstrates hemoglobin 11.0, platelets 429 ASSESSMENT / PLAN Mrs. Aurora Langley is a 76-year-old, right-handed, Citizen [place]-speaking woman with past medical history of TBI with residual posttraumatic epilepsy, right spastic hemiparesis and expressive aphasia s/p TOWER WATCHMAN shunt (1995) and lumbar spinal stenosis now [...] [place] [phone] with any questions or concerns. Niyah Early M.D. PM&R, PGY-2 Associated attestation - Larua Cardenas M.D. - 09/10/2021 5:39 PM CDT [...] Comorbid Conditions: Other (Comment), Cerebrovascular accident (see [facility] for full medical history) Personal Factors: Balance [...] Neuromuscular re-education, Gait training, Self-care/home management, Orthosis tgmmqbdsjhn-effzkvwf-fodmalv Time Spent with Patient Therapeutic Interventions Therapeutic [...] commands when is able to interpret into Citizen [place]. Safety/Judgment: Impairments noted Cognition Comments: known deficits from previous TBI. Able to understand most [place], able to respond to many yes/no questions [...] edge of bed to chair. Therapeutic Activity: Fashion To Figure Integrated Therapy System Facilitated visual scanning from [...] Comorbid Conditions: Other (Comment), Cerebrovascular accident (see [facility] for full medical history) Personal Factors: Balance [...] Individual: 90 Minutes Marianela Veliz M.S., O.T. IET Niyah Early M.D. - 09/09/2021 7:24 AM CDT SUBJECTIVE Mrs. Aurora Langley is a 76-year-old, right-handed, Citizen [place]-speaking woman with past medical history of TBI with residual posttraumatic epilepsy, right spastic hemiparesis and expressive aphasia s/p TOWER WATCHMAN shunt (1995) and lumbar spinal stenosis now [...] today. Attendees included: patient, family member(s), physician, customer care representative, physical therapist, occupational therapist and Social work. [...] Stool Occurrence: 1 (09/07/21 1900 : Debby Aleman, R.N.) Intake/Output Summary (Last 24 hours) at 09/09/2021 0724 Last data filed at 09/08/2021 1900 Gross per 24 hour Intake 720 ml Output -- Net 720 ml Bowel Incontinence: No (09/08/21 1900 : Miguelina Santana R.N.) Unmeasured Urine Occurrence: 1 (09/09/21 0516 : Petar Chase, R.N.) Urinary Incontinence: Yes (09/09/21515 : Petar Chase, R.N.) Physical Exam: General: [...] with the words to say, translates into Citizen [place] for her when needed Extremities: Tajik knee cage brace on right knee and ankle brace on right ankle. Right upper extremity held in flexion position which is baseline. Diagnostics I reviewed the imaging studies and agree with the interpretation as recorded. I reviewed the pertinent laboratory data and diagnostic data. ASSESSMENT / PLAN Mrs. Aurora Langley is a 76-year-old, right-handed, Citizen [place]-speaking woman with past medical history of TBI with residual posttraumatic epilepsy, right spastic hemiparesis and expressive aphasia s/p TOWER WATCHMAN shunt (1995) and lumbar spinal stenosis now [...] CODE as discussed with patient. Surgical Incision [place]: can be removed 14 days post-op (09/16) Diet: Regular DVT prophylaxis: Lovenox Bowel: bowel medication regimen as needed Bladder: currently voiding at her baseline; will perform I&O catheterization if indicated Disposition: anticipate discharge September 22; goal to home with family support ?? Please contact the PMR [place] [phone] with any questions or concerns. Niyah Early [...] 09/08/2021 2:52 PM CDT Occupational Therapy Rehabilitation [facility] Inpatient Progress Note SUBJECTIVE Patient's Name: [...] commands when is able to interpret into Citizen [place]. Safety/Judgment: Impairments noted Cognition Comments: known deficits from previous TBI. Able to understand most Andorran, able to respond to many yes/no questions [...] Comorbid Conditions: Other (Comment), Cerebrovascular accident (see [facility] for full medical history) Personal Factors: Balance [...] Physical Medicine and Rehabilitation Interdisciplinary Team Conference [facility] 09/08/2021 11:19 AM CDT Patient Name: Aurora Langley Admit Date/Time: 09/04/2021 3:09 PM Date of : 1945 Sex: Female Room/Bed: 215/215-P Etiologic Diagnosis: Laminectomy Lumbar Status Post Impairment Group: Orthopaedic Disorders Payor: Payor: MEDICARE / Plan: MEDICARE A AND B / Product Type: Medicare / Anticipated Discharge Date: 09/22/21 Rehab Team Conference Participation Physician Pig Lead Melter Helper: Dr. Laura Cardenas Senior Resident Present: Dr. Salvatore Lou Nursing Pig Lead Melter Helper: Prabhu Corrales RN CM/SW Pig Lead Melter Helper: MICAH Benjamin CM/SW Second Pig Lead Melter Helper: AAKASH Bush PT Pig Lead Melter Helper: Amparo Farmer, PT OT Pig Lead Melter Helper: Rosa Lobo OT Other (Discipline and Name): [...] a very pleasant and hard working 76-year-old Citizen Of [place] woman whose current deficits include chronic right [...] communication. No changes to goals needed.. Amparo Farmer P.T., D.P.T. - 09/08/2021 10:30 AM CDT [...] Balance Comments: Worked on static standing at [facility] rail with focus on upright posture with [...] Comorbid Conditions: Other (Comment), Cerebrovascular accident (see [facility] for full medical history) Personal Factors: Balance [...] Neuromuscular re-education, Gait training, Self-care/home management, Orthosis utzkcdexhax-akrwkpdb-ihmmhsh Time Spent with Patient Neuromuscular Re-Education (min): [...] Mrs. Aurora Langley is a 76-year-old, right-handed, Citizen [place]-speaking woman with past medical history of TBI with residual posttraumatic epilepsy, right spastic hemiparesis and expressive aphasia s/p TOWER WATCHMAN shunt (1995) and lumbar spinal stenosis now [...] with the words to say, translates into Citizen [place] for her intermittently Extremities: Tajik knee cage brace on right knee and ankle brace on right ankle. Right upper extremity held in flexion position which is baseline. Diagnostics I reviewed the imaging studies and agree with the interpretation as recorded. I reviewed the pertinent laboratory data and diagnostic data. ASSESSMENT / PLAN Mrs. Aurora Langley is a 76-year-old, right-handed, Citizen [place]-speaking woman with past medical history of TBI with residual posttraumatic epilepsy, right spastic hemiparesis and expressive aphasia s/p TOWER WATCHMAN shunt (1995) and lumbar spinal stenosis now [...] PM[place] [phone] with any questions or concerns. Niyah Early [...] 09/07/2021 2:06 PM CDT Occupational Therapy Rehabilitation [facility] Inpatient Progress Note SUBJECTIVE Patient's Name: [...] added functional transfers with spouse and Shannan Proficiency device. Encouraged patient to actively versus passively [...] Comorbid Conditions: Other (Comment), Cerebrovascular accident (see [facility] for full medical history) Personal Factors: Balance [...] 09/07/2021 10:30 AM CDT Physical Therapy Rehabilitation [facility] Inpatient Treatment SUBJECTIVE Patient's Name: Aurora [...] R knee pain after repeated stands in [facility], discussed adding a pillow in [...] Equipment: Gait belt, Sit to stand machine ([facility]) Level of Assistance: Maximal assistance, [...] mod-maxA x1 from raised hi-lo mat within [facility]. Stand to Sit Transfers # [...] Comorbid Conditions: Other (Comment), Cerebrovascular accident (see [facility] for full medical history) Personal Factors: Balance [...] Neuromuscular re-education, Gait training, Self-care/home management, Orthosis iiiqljricym-jyiswtjc-wiuuhdo Time Spent with Patient Neuromuscular Re-Education (min): 25 min Therapeutic Activity (min): 50 min Therapeutic Exercise (min): 15 min Total Timed Units (min): 90 min Total Treatment Time (min): 90 min Amparo Farmer P.T., D.P.TMyesha Niyah Early M.D. - 09/07/2021 7:32 AM CDT SUBJECTIVE Mrs. Aurora Langley is a 76-year-old, right-handed, Citizen [place]-speaking woman with past medical history of TBI with residual posttraumatic epilepsy, right spastic hemiparesis and expressive aphasia s/p TOWER WATCHMAN shunt (1995) and lumbar spinal stenosis now [...] (pt did self manual extraction on commode) (09/07/21329 : José Miguel Hill R.N.) Intake/Output Summary [...] with the words to say, translates into Citizen [place] for her intermittently Extremities: Normal inspection. Tajik knee cage brace on right knee and [...] Mrs. Aurora Langley is a 76-year-old, right-handed, Citizen [place]-speaking woman with past medical history of TBI with residual posttraumatic epilepsy, right spastic hemiparesis and expressive aphasia s/p TOWER WATCHMAN shunt (1995) and lumbar spinal stenosis now [...] CODE as discussed with patient. Surgical Incision Piedmont: can be removed 14 days post-op (09/16) Diet: Regular DVT prophylaxis: Lovenox Bowel: bowel medication regimen as needed Bladder: currently voiding; will perform I&O catheterization as needed Disposition: ELOS 7 days; goal to home ?? Please contact the [facility] [phone] with any questions or concerns. Niyah Early [...] 09/06/2021 3:07 PM CDT Occupational Therapy Rehabilitation [facility] Inpatient Progress Note SUBJECTIVE Patient's Name: [...] Delivery: Therapist Assisted UE Dressing Items Included: motor overhauler shirt UE Dressing Level of Assistance: max [...] needed during functional transfers and self cares Collins theraband 10 reps Vc to maintain spine [...] states that the patient can understand some Andorran, however does have limited verbal communication. is [...] Instructed, Therapist assisted, Facilitated Comments: P.T. and radiology assistant provided Max A x2, with cuing [...] in the Shannan Stedy, with PT and radiology assistant providing mod to Max A x2. [...] practice of seated weight shifts and reaching. Marketing Technology Coordinator was behind the patient supporting her with [...] Comorbid Conditions: Other (Comment),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 has not been cleared or approved by the U.S. Robert d and Drug Administration. Specimen Anatomical Collection Method Collection Time Receive d Time (Source) Location / / Volume Laterality Blood (Blood, 09/05/2021 5:07 AM 09/06/19 22 8:33 Venous) CDT AM CDT Lisa Maki D.O. LAB BLOOD NON ADD-ON Performing Organization Address City/[facility] Phon e Number [facility] [address] [place], [place] [address] [facility] [place] [address] Laboratory Medicine and Pathology [address] [place] (ABNORMAL) Carbamazepine, Total (09/05/2021 5:07 AM CDT) athologist Signature Carbamazepine, 13.3 (H) 4.0 - 12.0 09/05/2021 [facility] Tot, S mcg/mL 6:15 AM CDT Specimen Anatomical Collection Method Collection Time Receive d Time (Source) Location / / Volume Laterality Blood (Blood, 09/05/2021 5:07 AM 09/06/19 22 5:26 Venous) CDT AM CDT Lisa StallworthOMyesha LAB BLOOD ADD-ON Performing Organization Address City/State/ZIP Code Phon e Number [facility] - 200 [place], [place] [address] [facility] [place] [address] Laboratories-[facility] 200 [facility] (ABNORMAL) CBC with Differential, Blood (09/05/2021 5:07 AM CDT) [facility] Method Time Signature Hemoglobin 9.2 (L) 11.6 [...] Volume Laterality Blood (Blood, 09/05/2021 5:07 AM 03/26/20 22 5:32 Venous) CDT AM CDT Lisa StallworthOMyesha LAB BLOOD ADD-ON Performing Organization Address City/State/ZIP Code Phon e Number [facility] - [address] [place], [place] [address] [facility] [place] [place] [address] Laboratories-[facility] [address] documented in this encounter Visit Diagnoses Diagnosis Laminectomy Lumbar Status Post - Primary Lack Of Coordination Decline Functional Status Imbalance Non Orthopedic Weakness General Unsteadiness Gait Disorder Non Orthopedi c Laminectomy Lumbar Status 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) Stenosis Spinal Injury Brain Traumatic Personal History Contracture Hand Joint Right Focal Complex 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 Do NOT crush, chew, or split tablet. atorvastatin tablet 10 mg (LIPITOR) 1811 (Given - Provider: Niyah Callaway R.N.) 10 mg, oral, Every 48 hours, First dose (after last modification) on Tue09/04/21 at 1800 carBAMazepine 12 hr capsule 100 mg (CARBATROL) 0621 (G tutuen - Provider: Haroldo Singh R.N.)1824 (Given - Provider: Niyah Callaway R.Jasper.) 06 (Given - Provider: Ana Menendez RMyeshaN.)1810 (Given - Provider: Niyah Callaway R.N.) 0538 (Given - Provider: Minerva Sin R.NMyesha) 100 mg, oral, 2 times daily, First dose (after last modification) on Tue09/04/21 at 1800, Do NOT crush or chew. Capsule may be opened and the contents taken without crushing or chewing. carBAMazepine 12 hr capsule 400 mg (CARBATROL) 0622 (G iven - Provider: Haroldo Singh RMyeshaN.)1826 (Given - Provider: Niyah Callaway RMyeshaNMyesha) 0607 (Given - Provider: Ana Menendez RMyeshaNMyesha)1812 (Given - Provider: Niyah Callaway R.N.) 0539 (Given - Provider: Minerva Sin RMyeshaNMyesha) 400 mg, oral, 2 times daily, First dose (after last modification) on Tue09/04/21 at 1800, Do NOT crush or chew. Capsule may be opened and the contents taken without crushing or chewing. enoxaparin injection 40 mg (LOVENOX) 0911 (Given - Pro vider: Elaine Hill RFaiza.) 0802 (Given - Provider: Elaine Hill RFaiza.) 0804 ( Given - Provider: Ita Cruz R.NMyesha, CRRN) 40 mg, subcutaneous, Every 24 hours sche duled, First dose on 09/05/21 at 0900 folic acid tablet 1,000 mcg 0622 (Given - Provider: Haroldo Singh RMyeshaN.) 0607 (Given - Provider: Ana Menendez RMyeshaNMyesha) 0539 (Given - Provider: Minerva iSn RMyeshaNMyesha) 1,000 mcg, oral, Daily, First dose (afte r last modification) on 09/05/21 at 0600 levETIRAcetam tablet 250 mg (KEPPRA) 1205 (Given - Pro vider: Elaine Hill R.N.) 1158 (Given - Provider: Elaine Hill R.N.) 1135 ( Given - Provider: Ita Cruz RMyeshaNMyesha, CRRN) 250 mg, oral, Daily, First dose (after l ast modification) on 09/05/21 at 1200 levETIRAcetam tablet 500 mg (KEPPRA) 0622 (Given - Pro vider: Haroldo Singh R.N.)1825 (Given - Provider: Niyah Callaway R.N.) 0607 (Given - Provider: Ana Menendez R.N.)1838 (Given - Provider: Niyah Callaway R.N.) 0538 (Given - Provider: Minerva Sin RMyeshaNMyesha) 500 mg, oral, 2 times daily, First dose (after last modification) on Tue09/04/21 at 1800 psyllium (with aspartame) packet 1 packet (METAMUCIL) 0911 (Given - Provider: Elaine Hill R.N.) 0802 (Given - Provider: Elaine Hill RMyeshaN.) [...] 1512 documented in this encounter Care Teams Pig Lead Melter Helper Relationship Specialty Start Date End Date Elsewhere, Pcp PCP - General Internal Medicine 09/02/21 documented as of this encounter
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
--- OUTSIDE RECORDS SUMMARY | 2022-05-07 14:57 | XMS_ITS | Encounter Summary ---
:1945 Author Organization [facility] Address [address] [place] [address] Care Team Providers Name Role Phone Elsewhere, Pcp Primary Care Provider Unavailable Encounter Details Date Type Department Care Team Description 09/22/2021 Clinical Communication Department of Physical [facility] and Maame Doyle, Ph.D. Rehabilitation in [address] [place] [address] [place] [phone] [place], [place] [phone] (Work) [phone] Social History Tobacco Use Types Packs/Day Years [...] you attend latter day or Never 2021 temple services? Do you belong to any clubs [...] on filedocumented in this encounter Care Teams Cloud Administrator Relationship Specialty Start Date End Date Elsewhere, Pcp PCP - General Internal Medicine 09/02/21 documented as of this encounter
--- OUTSIDE RECORDS SUMMARY | 2022-05-07 14:57 | XMS_ITS | Encounter Summary ---
:1945 Author Organization [facility] Address [address] [place] [address] Care Team Providers Name Role Phone Elsewhere, [...] or relatives? How often do you attend latter-day or Never 2021 episcopal services? Do you belong to any clubs or No 08/26/2021 organizations such as latter-day groups, unions, fraternal or athletic groups, or [...] on filedocumented in this encounter Care Teams Oxide Furnace Tender Relationship Specialty Start Date End Date Elsewhere, Pcp PCP - General Internal Medicine 09/02/21 documented as of this encounter
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
--- OUTSIDE RECORDS SUMMARY | 2022-05-07 14:57 | XMS_ITS | Encounter Summary ---
:1945 Author Organization [facility] Address [address] [place] [address] Care Team Providers Name Role Phone Unavailable Primary Care Provider Unavailable Reason for Visit Reason Comments Pre-visit Intake Encounter Details Date Type Department Care Team Description 08/21/2021 Clinical Communication Visit Review in Pr e-visit Intake [place], [place] 200 [place] [address] Social History Tobacco Use Types Packs/Day [...] or relatives? How often do you attend denominational or Never 2021 methodist services? Do you belong to any clubs or No 08/26/2021 organizations such as denominational groups, unions, fraternal or athletic groups, or [...] or slept in a fci (including now)? Sex Assigned at Date Recorded Female 08/25/2021 9:30 PM CDT documented as of this encounter Plan of Treatment Not on filedocumented as of this encounter Visit Diagnoses Not on filedocumented in this encounter
--- OUTSIDE RECORDS SUMMARY | 2022-05-07 14:57 | XMS_ITS | Encounter Summary ---
:1945 Author Organization [facility] Address [address] [place] [address] Care Team Providers Name Role Phone Unavailable Primary Care Provider Unavailable Encounter Details Date Type Department Care Team Description 08/31/2021 Clinical Communication Department of Srinivasa Castellon Neurologic Surgery in [place], [place] [address] [facility] [address] [place] [phone] Social History Tobacco Use Types Packs/Day Years [...] or relatives? How often do you attend mosque or Never 2021 judaism services? Do you belong to any clubs or No 08/26/2021 organizations such as mosque groups, unions, fraternal or athletic groups, or [...] place to sleep or slept in a care home (including now)? Education Answer Date Recorded What [...]
--- OUTSIDE RECORDS SUMMARY | 2022-05-07 14:57 | XMS_ITS | Encounter Summary ---
:1945 Author Organization [facility] Address [address] [place] [address] Care Team Providers Name Role Phone Unavailable Primary Care Provider Unavailable Reason for Referral Outpatient (Routine) - Closed Specialty Diagnoses / Procedures Referred By Contact Refer red To Contact Diagnoses Stenosis Spinal Lumbar With Neurogenic Claudication Valencia Ruiz D.O. [facility] Procedures EMG [address] [place] [address] Referral ID Status Reason Start Date Expiration Date Visits Requ ested Visits Authorized [id number] Closed 08/20/2021 08/20/2022 1 1 Reason for Visit Outpatient (Routine) - Closed Specialty Diagnoses / Procedures Referred By Contact Refer red To Contact Diagnoses Stenosis Spinal Lumbar With Neurogenic Claudication Valencia Ruiz D.O. [facility] Procedures EMG [address] [place] [address] Referral ID Status Reason Start Date Expiration Date Visits Requ ested Visits Authorized [id number] Closed 08/20/2021 08/20/2022 1 1 Encounter Details Date Type Department Care Team Description 08/27/2021 Hospital Encounter Department of Valencia Ruiz Spinal Neurology in [place] Lumbar With [address] Neurogenic [place], [place] Claudication [address] [facility] [address] [place], [place] [phone] (Work) [phone] Social History Tobacco Use Types Packs/Day Years [...] do you attend anabaptism or Never 2021 mu-ism services? Do you belong to any clubs [...] ? Amended Report Study Number: [address] Man: Benji Bhakta 127 or [phone] Referred by: VALENCIA RUIZ (127 or [phone]) Referred for: Lumbar radic Referral Code: ?022 [...] left lumbosacral radiculopathy. Antonina Bhakta (127 or [phone])/[facility] ??Record Rep ?? Normal ??Normal [...] from the original. 27-Aug-2021 Electromyography Amended Rep [facility] Study Number: [address] Man: Benji Bhakta. 127 or [phone] Referred by: VALENCIA RUIZ (127 or [phone]) Referred for: Lumbar radic Referral Code: 022 [...] left lumbosacral radiculopathy. Antonina Bhakta (127 or [phone])/[facility] Record Rep Normal Normal Distal [...]
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
--- OUTSIDE RECORDS SUMMARY | 2022-05-07 14:57 | XMS_ITS | Encounter Summary ---
:1945 Author Organization [facility] Address [address] [place] [address] Care Team Providers Name Role Phone Elsewhere, Pcp Primary Care Provider Unavailable Reason for Visit Auth/Cert Specialty Diagnoses / Procedures Referred By Contact Refer red To Contact Diagnoses Stenosis Spinal Stenosis Spinal [M48.00] Procedures L2-L5 Lumbar laminectomy Referral ID Status Reason Start Date Expiration Date Visits Requ ested Visits Authorized [id number] 1 1 Encounter Details Date Type Department Care Team Description 09/02/2021 - Hospital Encounter [facility] Castellon, Stenosis Spinal Lumbar With Neurogenic Claudication (Primary Dx); [facility] Functional Status; [facility], [address] [facility] Contracture Hand Joint Right; [place], [place] Injury Brain Traumatic Personal History; [facility] [address] Injury Intracranial Brain Sequela (HCC); Floor [phone] Stenosis Spinal [address] [facility] (Work) [place], [place] [phone] [address] (Fax) [phone] Social History Tobacco Use Types Packs/Day Years [...] PM CDT DISCHARGE SUMMARY BRIEF OVERVIEW Hospital: [facility] Discharge Provider: Srinivasa Castellon M.D. [...] Srinivasa Castellon M.D.Ransom, Ryan C, M.D., Ph.D. RST ROMB OR DISCHARGE DISPOSITION [...] and was dismissed to inpatient rehabilitation at [facility]. CONSULTS ORDERED DURING THIS ADMISSION IP CONSULT [...] month progress report. Please contact Dr. Castellon's secretary receptionist at [phone] (8 a.m. - 5 p.m. on days). [...] PT Plan Comments Patient to discharge [facility]. Patient will continue skilled therapy services. Goals set during this episode of care will continue to be addressed at next level of care. IET Tiff Cordova M.D. - 09/04/2021 1:12 PM CDT Facility Information: [facility] Physical Medicine and Rehabilitation Pre-Admission Screening Patient Information Patient Name: Aurora Langley [address]: [address] [place] [address] Sex: Female Date of : 1945 Age: 76 y.o. Room/Bed: 83/[facility] Coverage Information: Payor: MEDICARE / Plan: MEDICARE [...] Illness: Ms. Langley is a 76 y.o. Sierra Leonean speaking female from [place], [place] with history of TBI in 1995 [...] buckling during the transfer despite having her Bulgarian knee cage and right AFO donned. At baseline, prior to surgery the patient was requiring minimal assistance for all transfers, stairs and ADLs from her . 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 She also has bathroom equipment and mostly uses a wheelchair within her home for mobility. 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 Over the last 5-8 years she has [...] bars around toilet Prior Function Level of Edmonson: Needs assistance with ADLs; Needs assistance with homemaking (functional decline since 06/2021 per documentation.) Lives With: Spouse Receives Help From: Family ADL Assistance: Required assistance IADL/Homemaking Assistance: Required assistance Driving: Does not drive Special Rehabilitation Needs Special Rehabilitation Needs Miscellaneous Devices: Brace Requires modified schedule: No Language used during interpretation: Other (Comment) (Sierra Leonean) Precautions Precautions Precautions: Spinal precautions, Seizure precautions [...] Therapy, Occupational Therapy, Speech Therapy, Recreational Therapy, Wallpaper Consultant, Customer Retention Representative, Rehabilitation Psychology, Bowel and Bladder Management, Sheet Metal Duct Installer Apprentice, and Card Services Specialist Services Anticipated Services Upon Discharge Anticipated Interventions [...] 01 - Home (private home/apartment, assisted living, alf, transitional living) Anticipated Services Upon Discharge Anticipated Services Upon Discharge: Outpatient Therapy Learning Assessment Questions Primary Learner Name: Aurora Relationship: Patient Does the primary learner have any barriers to learning?: Language, Cognitive What is the preferred language of the primary learner for medical teaching?: Other (Comment) Comment: Sierra Leonean Is an automotive parts interpreter required?: No Comment: Her states, she understands, seems there is some expressve aphasia How does the primary learner prefer to learn new concepts?: Demonstration / Seeing, Pictures / Videos, Reading, Listening Co-Learner Name (if applicable): Kirk Relationship: Patient Does the co-learner have any barriers to learning?: No Barriers What is the preferred language of the co-learner for medical teaching?: Other (Comment), Bahamian Is an automotive parts interpreter required?: No Comment: Her states, she understands, seems there is some expressve aphasia How does the co-learner prefer to learn new concepts?: Listening, Reading, Doing Information Brochures Given: Data Collection Information Summary for Patients in Inpatient Rehabilitation Facilities, Inpatient Rehabilitation Programs [id number], Spinal Cord Rehabilitation [id number] Tiff Cordova M.D. Shannan Huff CRRN - [...] status this morning which include cognition and INSTALLER shunt. We discussed tranfer to 4-Gen would [...] %] 96 % Physical Exam: assisted with Sierra Leonean interpretation at bedside. GENERAL: Awake, Alert. No acute distress. Laying in hospital bed, resting comfortably. HEENT: Palpable right sided shunt with tubing. Conjugate gaze. Mild right facial asymmetry at rest but improves with smile. LUNGS: Unlabored breathing pattern. Normal rate. Tolerating room air. ABDOMEN: Soft, nontender, nondistended. EXTREMITIES:Right burkinan brace and ankle brace and shoes in place. MENTAL STATUS: Oriented to self and situation. Answers simple questions appropriately MOTOR SPEECH: Slowed rate, intelligible. LANGUAGE: Increased response latency. Expressive aphasia. Basic comprehension appears intact. Follows simple gross motor commands without cues. 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 Castellon's service at [phone] Bon Calderón M.D., Ph.D. Abdoulaye Calderón M.D., [...] diet. Activity as tolerated. PMR/PT/OT. SCDs. Holding [facility]. -Dispo: General Care status. PMR [...] concerns, please page Dr. Castellon's service at [phone] Bon Calderón M.D., Ph.D. Abdoulaye Calderón M.D., [...] concerns, please page Dr. Castellon's service at [phone] Bon Calderón M.D., Ph.D. Mp Simons PharmAramis, R.Ph. - 09/02/2021 7:37 AM CDT Images from the original note were not included. Admission Medication History Note Adherence issues: No concerns Medication list source: Patient Medication related information: Prior to Admission Medications Med List Status: Pharmacy Complete Set By: Mp Simons, Pharm.DMyesha, R.Ph. at 09/02/2021 7:37 AM Taking? Last [...] SHX (SEE COMMENT) N/A 05/09/1992 >Esophagogastroduodenoscopy (Olympus [id number]) PREMEDICATION: Versed 5 mg, Demerol 100 mg [...] home Patient Comments: husb states she understands kinyarwanda; ?? 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 Bed mob with moderate A of 2 sup=>sit at edge of bed. Unsupported sitting difficult unless feet are on floor. R inattention and R UE in IR/flexed posture (not a fixed position). R LE with burkinan knee cage and ankle brace. Husb will [...] 45 min Kyra Conroy P.T. Julee Pete O.T. 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 Langley is a 76 y.o. Sierra Leonean speaking female from [place], [place] with history of TBI in 1995 [...] buckling during the transfer despite having her Bulgarian knee cage and right AFO donned. At baseline, prior to surgery the patient was requiring minimal assistance for all transfers, stairs and ADLs from her . 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 She also has bathroom equipment and mostly uses a wheelchair within her home for mobility. 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 Functional history (chart review): over the last [...] aphasia and language barrier. She has right Bulgarian knee cage and right ankle-foot orthosis donned. [...] spineconsult service tomorrow. Please contact my pager ([phone]) with questions or concerns. Aida Mckeon D.O. documented in this encounter OR Notes Op Note - Srinivasa Castellon M.D. - 09/02/2021 10:08 AM CDT Operating room 702. PRE-OPERATIVE DIAGNOSIS Gait deterioration. Severe lumbar pseudoclaudication. Severe spinal stenosis L2-L5. POST-OPERATIVE DIAGNOSIS Gait deterioration. Severe lumbar pseudoclaudication. Severe spinal stenosis L2-L5. A surgery assistant actively participated and was necessary for [...] Srinivasa Castellon M.D. CT CT Job ID: [id number] Brief Op Note - Abdoulaye Calderón M.D., [...] 09/03/2021 DTL Black/ mL/min/BSA 6:35 AM CDT Estonian Comment: ----ADDITIONAL INFORMATION---- Estimated GFR calculated using [...] Organization Address City/State/ZIP Code Phon e Number [facility] - [address] [place] [phone] [facility] [place] [place] [address] [facility] [address] [facility] (ABNORMAL) CBC with Differential, Blood (09/03/2021 5:07 AM CDT) [facility] Method Time Signature Hemoglobin 11.2 (L) [...] Laterality Blood (Blood, 09/03/2021 5:07 AM 09/04/19 5:33 Venous) CDT AM CDT Abdoulaye Calderón M.D., Ph.D. LAB BLOOD ADD-ON Performing Organization Address City/State/ZIP Code Phon e Number [facility] - [address] [place], [place] [address] [facility] [place] [place] [address] [facility] [address] Dx Spine [...] Injury Intracranial Brain Sequela (HCC) Stenosis Spinal Stenosis Spinal Lumbar With Neurogenic C laudication Injury Brain Traumatic Personal History Contracture Hand Joint Right Focal Complex Partial Epilepsy Intractab le With Status Epilepticus (HCC) Injury Intracranial Brain Sequela (HCC) Stenosis Spinal Lumbar With Neurogenic C laudication documented in this encounter Admitting Diagnoses Diagnosis [...] 81 mg, oral, Daily, First dose on Tue09/03/21 at 0600, Swallow whole. Do NOT crush, [...] 1,000 mcg, oral, Daily, First dose on Vane 09/03/21 at 0600 Given 09/03/2021 6:11 AM CDT [...] (TYLENOL) 174 (Given - Provider: Susan Burns R.N.)2113 (Given - Provider: Ingrid Sin R.N.) 0749 [...] mg (CANCELED) 0612 (Given - Provider: Ingrid Sin, R.N.) 0544 (Given - Provider: Ingrid Sin R.NMyesha) 81 mg, oral, Daily, First dose on Vane at 0600, Swallow whole. Do NOT crush, chew, or split tablet. atorvastatin tablet 10 mg (LIPITOR) 10 mg, oral, Every 48 hours, First dose on Tue09/04/21 at 1800 carBAMazepine 12 hr capsule 100 mg (CARBATROL) 0610 (Given - Provider: Ingrid Sin R.N.)1808 (Given - Provider: Roxana Dowling R.N., ONC) 0546 (Given - Provider: Ingrid Sin R.N.) 100 mg, oral, 2 times daily, First dose on Tue09/03/21 at 0600, Do NOT crush or chew. Capsule may be opened and the contents taken without crushing or chewing. carBAMazepine 12 hr capsule 400 mg (CARBATROL) 0607 (Given - Provider: Ingrid Sin R.N.)181 (Given - Provider: Roxana Dowling R.N., ONC) 0542 (Given - Provider: Ingrid Sin R.N.) 400 mg, oral, 2 times daily, First dose on Tue09/03/21 at 0600, Do NOT crush or chew. Capsule may be opened and the contents taken without crushing or chewing. cefadroxil capsule 500 mg (DURICEF) (CANCELED) 1118 (Given - Provider: Kenya Garcia RMyeshaNMyesha)2013 (Given - Provider: Ingrid Sin R.N.) 0820 (Given - Provider: Vi Arboleda RMyeshaNMyesha) 500 mg, oral, 2 times daily, First dose on Tue09/03/21 at 0900, Indications: Prophylaxis, surgical ceFAZolin in dextrose (iso-os) IVPB 2 g (ANCEF) (COMPL ETED) 4220 (New Bag - Provider: Susan Burns RMyeshaNMyesha)8965 (New Bag - Provider: Ingrid Sin R.N.) 2 g, intravenous, at 200 mL/hr, Administ [...] 0845 (Given - Provider: Bibiana Arrington APRN, AMINA, MNA) 2,000 mg (rounded from 1,815 mg [...] 1,000 mcg, oral, Daily, First dose on Vane 09/03/21 at 0600 heparin (porcine) injection 5,000 Units [...] earlier) 1118 (Given - Provider: Kenya Garcia R.N.) 1116 (Given - Provider: Vi Arboleda R.N.) 250 mg, oral, Daily, First dose on Tue09/02/21 at 1445 levETIRAcetam tablet 500 mg (KEPPRA) 060 9 (Given - Provider: Ingrid Sin R.N.)1809 (Given - Provider: Roxana E Josey, R.N., ONC) 0546 (Given - Provider: Aleksandar NogueiraNMyesha) 500 mg, oral, 2 times daily, First dose on Tue09/03/21 at 0600 methocarbamoL tablet 750 mg (ROBAXIN) 1240 (Given - Pr ovider: Jordyn Figueroa R.N., C.M.S.R.N.)1742 (Given - Provider: Susan Burns RMyeshaN.)2355 (Given - Provider: Ingrid Sin R.N.) 0608 (Given - Provider: Aleksandar NogueiraN.)1158 (Given - Provider: Niyah Lr RMyeshaN.)1808 (Given - Provider: Roxana Dowling RMyeshaN., ONC)2344 (Given - Provider: Ingrid Sin R.N.) 0546 (Given - Provider: Ingrid Sin R.N.)1148 (Given - Provider: Aleksandar OwensNMyesha) 750 mg, oral, Every 6 hours, First dose on Tue09/02/21 at 1230 polyethylene glycol powder packet 17 g (MIRALAX) 0613 (Given - Provider: Ingrid Sin R.N.) 0543 (Given - Provider: Aleksandar NogueiraNMyesha) 17 g, oral, Daily, First dose on 08/12 at 0600, Ordered sequence of administration: polyethylene glycol, then bisacodyl until BM achieved. Avoid mixing with starch-based thickened liquids. sennosides-docusate sodium 8.6-50 mg per tablet 1 tabl et (SENOKOT-S) 2113 (Given - Provider: Ingrid Sin R.N.) 111 (Given - Provider: Kenya Garcia RMyeshaNMyesha)2013 (Given - Provider: Ingrid Sin R.N.) 0820 (Given - Provider: Vi Arboleda R.N.) 1 tablet, oral, 2 times daily, First dos e on Tue09/02/21 at 2100, For constipation. Hold for diarrhea. sodium chloride 0.9 % injection 3 mL 2120 (Not Given - Provider: Ingrid Sin R.N. [...] Bag - Provider: Bibiana Arrington APRN, CRNA, MNMichael)0915 (Rate/Dose Change - Provider: Shannan Vieyra APRN, CRNA)0925 (Rate/Dose Change - Provider: Bibiana Arrington APRN, AMINA, MNA) 0-1 mcg/kg/min ? 72.6 kg Dosing weight (0-54.45 mL/hr), intravenous, Continuous, Starting on Tue09/02/21 at 0715, Intra-Op, 20 mg in 250 mL, Patient Type: Standard, initiate at: Other, Rate: Per Provid 1017 (Rate/Dose Change - Provider: Isra Arrington APRN, AMINA, MNA)1034 (Stopped - Provider: Bibiana Arrington APRN, CRNA, MNMichael) er, Titrate at: Other, Titrate: Per Provider, Goal: Other, Goal: Per Provider PRN Medication Order 09/02/2021 09/03/2021 09/04/2021 acetaminophen injection 1,000 mg (COMPLETED) 1107 (New Bag - Provider: Nara Flynn R.N.) 1,000 mg, intravenous, at 400 mL/hr, Adm [...] NaCl 0.9% irrigation pour bottle (COM PLETED) 8826 (Given - Provider: Abdoulaye Calderón M.D., Ph.D.) [...] Alternative - Provider: Roxana Dowling R.N., ONC) 023 (See Alternative - Provider: Ingrid Sin R.N.)0916 [...] (CANCELED) 0749 (Given - Provider: Kenya Garcia R.N.)1820 (Given - Provider: Roxana Dowling R.N., ONC) 023 (Given - Provider: Ingrid Sin RJoey)0916 (See Alternative - Provider: Vi Arboleda R.N.) [...] 1147 documented in this encounter Care Teams Roller Bearing Inspector Relationship Specialty Start Date End Date Elsewhere, Pcp PCP - General Internal Medicine 09/02/21 documented as of this encounter
--- OUTSIDE RECORDS SUMMARY | 2022-05-07 14:57 | XMS_ITS | Encounter Summary ---
:1945 Author Organization [facility] Address [address] [place] [address] Care Team Providers Name Role Phone Elsewhere, [...] do you attend tenriism or Never 2021 yazdanism services? Do you belong to any clubs [...] on filedocumented in this encounter Care Teams Roundhouse Firer/Fireman Relationship Specialty Start Date End Date Elsewhere, Pcp PCP - General Internal Medicine 09/02/21 documented as of this encounter
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
--- OUTSIDE RECORDS SUMMARY | 2022-05-07 14:57 | XMS_ITS | Encounter Summary ---
:1945 Author Organization [facility] Address [address] [place] [address] Care Team Providers Name Role Phone Unavailable Primary Care Provider Unavailable Reason for Visit Outpatient (Routine) - Closed Specialty Diagnoses / Procedures Referred By Contact Refer red To Contact Neurological Surgery Diagnoses Stenosis Spinal [facility] [address] [place] [phone] Referral ID Status Reason Start Date Expiration Date Visits Requ ested Visits Authorized [id number] Closed 08/13/2021 08/13/2022 1 1 Encounter Details Date Type Department Care Team Description 08/28/2021 Comprehensive Visit Department of Srinivasa Castellon [facility] Spinal Neurologic Surgery or [place], [place] [address] [place] [address] [place] [phone] Social History Tobacco Use Types Packs/Day Years [...] 08/26/2021 organizations such as taoist groups, unions, fraSkyline Medical Inc. or athletic groups, or school groups? How [...] place to sleep or slept in a group home (including now)? Education Answer Date Recorded [...] stay for 2-3 weeks in rehab or [facility] facility were reviewed in detail. I also [...]
--- OUTSIDE RECORDS SUMMARY | 2022-05-07 14:58 | XMS_ITS | Encounter Summary ---
:1945 Author Organization [facility] Address [address] [place] [address] Care Team Providers Name Role Phone Unavailable Primary Care Provider Unavailable Reason for Visit Outpatient (Routine) - Closed Specialty Diagnoses / Procedures Referred By Contact Refer red To Contact Neurological Surgery Diagnoses Stenosis Spinal [facility] Procedures Neurological surgery - Spine eConsult M.DMyesha [address] [place] [phone] Referral ID Status Reason Start Date Expiration Date Visits Requ ested Visits Authorized [id number] Closed 08/03/2021 08/03/2022 1 1 Encounter Details Date Type Department Care Team Description 08/04/2021 Internal E-Consult Department of Srinivasa Castellon is Spinal Neurologic Surgery in , [place], [place] [address] [place] [address] [address] [place] [phone] Social History Tobacco Use Types Packs/Day Years [...] or relatives? How often do you attend orthodox or Never 2021 advent services? Do you belong to any clubs or No 08/26/2021 organizations such as orthodox groups, unions, fraternal or athletic groups, [...] documented as of this encounter Consult Notes Sriniavsa Castellon M.D. - 08/04/2021 7:30 AM CST The patient was not personally interviewed or examined. The history and examination findings are based on the clinical documentation provided and/or discussed with a physician or provider who had personally interviewed and examined the patient. Referring Physician: Jose Peng M.D. CHIEF COMPLAINT / REASON FOR VISIT Aurora Langlye is a 76 y.o. female referred by [...] given her disability, a transition to a halfway for 2-3 weeks or even rehabilitation after [...] surgical direction after reviewing my note above. T FAMILY HOME PROGRAM MANAGER documented in this encounter Plan of Treatment Not on filedocumented as of this encounter Visit Diagnoses Diagnosis Stenosis Spinal documented in this encounter
--- OUTSIDE RECORDS SUMMARY | 2022-05-07 14:58 | XMS_ITS | Encounter Summary ---
:1945 Author Organization [facility] Address [address] [place] [address] Care Team Providers Name Role Phone Unavailable Primary Care Provider Unavailable Encounter Details Date Type Department Care Team Description 08/03/2021 Clinical Communication Department of Physical Depompol o, Medicine and Jose Harrison M.D. Rehabilitation in [address] [place] [address] [place] [phone] [place] [phone] Social History Tobacco Use Types Packs/Day [...] do you attend taoist or Never 2021 confucianism services? Do you belong to any clubs or No 08/26/2021 organizations such as taoist groups, unions, fraternal or athletic groups, or [...] Jose Peng M.D. - 08/04/2021 6:49 AM OPERATOR PREFINISH Thanks for the quick response. This has been setup as an E-Consult. Should we change it to a teleconference? Tad ATOR PREFINISH Telephone Encounter - Jose Peng M.D. - 08/03/2021 3:55 PM OPERATOR PREFINISH Dear Doctor Cande, You will be doing an E consult on [facility]. She is a 76-year-old female who was [...] fora number of years. Sincerely, Tad Peng ATOR PREFINISH documented in this encounter Plan of Treatment Not on filedocumented as of this encounter Visit Diagnoses Not on filedocumented in this encounter
--- OUTSIDE RECORDS SUMMARY | 2022-05-07 14:58 | XMS_ITS | Encounter Summary ---
:1945 Author Organization [facility] Address [address] [place] [address] Care Team Providers Name Role Phone Unavailable Primary Care Provider Unavailable Encounter Details Date Type Department Care Team Description 07/21/2020 Clinical Communication Department of Physical Depompol o, Medicine and Jose Harrison M.D. Rehabilitation in [address] [place] [address] [place] [phone] [place] [phone] Social History Tobacco Use Types Packs/Day [...] do you attend hinduism or Never 2021 hindu services? Do you belong to any clubs [...] Jose Peng M.D. - 07/21/2020 12:44 PM LEADERSHIP DEVELOPMENT CONSULTANT So noted. Thanks. ERSHIP DEVELOPMENT CONSULTANT Telephone Encounter - Jose Peng M.D. - 07/21/2020 7:49 AM LEADERSHIP DEVELOPMENT CONSULTANT Eve, I did a letter on Jul 14 for this patient and left it with a cover letter at the [employer] to send. The patient's called and they still have not received it. Can you see what happened to it if possible. Thanks, Tad Peng ERSHIP DEVELOPMENT CONSULTANT documented in this encounter Plan of Treatment Not on filedocumented as of this encounter Visit Diagnoses Not on filedocumented in this encounter
--- OUTSIDE RECORDS SUMMARY | 2022-05-07 14:58 | XMS_ITS | Encounter Summary ---
:1945 Author Organization [facility] Address [address] [place] [address] Care Team Providers Name Role Phone Unavailable Primary Care Provider Unavailable Reason for Referral Outpatient (Routine) - Closed Specialty Diagnoses / Procedures Referred By Contact Refer red To Contact Diagnoses Stenosis Spinal Lumbar With Neurogenic Claudication Valencia Ruiz D.O. [facility] Procedures EMG [address] [place] [phone] Referral ID Status Reason Start Date Expiration Date Visits Requ ested Visits Authorized [id number] Closed 08/20/2021 08/20/2022 1 1 RETICAL PHYSICS TEACHER Reason for Visit Outpatient (Routine) - Closed Specialty Diagnoses / Procedures Referred By Contact Refer red To Contact Spine Diagnoses Stenosis Spinal Srinivasa Castellon M.D. 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 Do you belong to any clubs [...] 72.6 kg (160 lb) 08/20/2021 3:56 PM THEORETICAL PHYSICS TEACHER stated Height 172.7 cm (5' 8) 08/20/2021 3:56 PM THEORETICAL PHYSICS TEACHER stated Body Mass Index 24.33 08/20/2021 3:56 PM THEORETICAL PHYSICS TEACHER documented in this encounter Consult Notes Valencia [...] seen in the Neurology Clinic here at [facility] in the past, last seen by epileptologist [...] last seizure was some time ago, in 2018. 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 I recommend [...] with current carbamazepine and Keppra. I updated [facility] with current medication dosages. Patient to meet with Dr. Castellon face to face next week to discuss further the possibility of lumbar spine surgery. Total time 70 minutes with greater than 50% of the time spent face to face in counseling, review of the EHR, review of diagnostic tests, including pertinent imaging studies and coordination of care. RETICAL PHYSICS TEACHER documented in this encounter Plan of Treatment Not on filedocumented as of this encounter Results EMG (08/27/2021 9:30 AM CDT) Specimen (Source) Anatomical Collection Method Collection Time Re ceived Time Location / / Volume Laterality 08/27/2021 9:30 AM CDT Narrative EMG - 08/27/2021 11:10 AM CDT 27-Aug-2021 ? Electromyography ? Amended Report Study Number: 1 EMG Water Use Inspector: Benji Bhakta 127 or [phone] Referred by: VALENCIA RUIZ (127 or [phone]) Referred for: Lumbar radic Referral Code: ?022 [...] left lumbosacral radiculopathy. Antonina Bhakta (127 or [phone])/[facility] ??Record Rep ?? Normal ??Normal [...] Amended Rep ort Study Number: 1 EMG Water Use Inspector: Benji Bhakta. 127 or [phone] Referred by: VALENCIA RUIZ (127 or [phone]) Referred for: Lumbar radic Referral Code: 022 [...] left lumbosacral radiculopathy. 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
--- OUTSIDE RECORDS SUMMARY | 2022-05-07 14:58 | XMS_ITS | Encounter Summary ---
:1945 Author Organization [facility] Address [address] [place] [address] Care Team Providers Name Role Phone Unavailable Primary Care Provider Unavailable Encounter Details Date Type Department Care Team Description 06/02/2016 Hospital Encounter HX RST Dae Hernandez M.D. [address] [place] [address] (Wo rk) Social History Tobacco Use [...] or relatives? How often do you attend adventist or Never 2021 orthodoxy services? Do you belong to any clubs or No 08/26/2021 organizations such as adventist groups, unions, fraternal or athletic groups, or [...] or slept in a fdc (including now)? Sex Assigned at Date Recorded Female 08/25/2021 9:30 PM CDT documented as of this encounter Last Filed Vital Signs Vital Sign Reading Time Taken Comments Blood Pressure 99/52 06/02/2016 2:40 PM NIBP - Value from [facility]. Pulse 80 06/02/2016 2:40 PM Value from [facility]. BOOK SORTER Temperature - - Respiratory Rate 18 06/02/2016 2:40 PM Value from [facility]. BOOK SORTER Oxygen Saturation - - Inhaled Oxygen - - Concentration Weight 69.3 kg (152 lb 12.5 06/02/2016 2:37 AM oz) BOOK SORTER Height 170 cm (5' 6.93) 06/02/2016 2:37 AM BOOK SORTER Body Mass Index 23.98 06/02/2016 2:37 AM BOOK SORTER documented in this encounter Medications at Time [...] 4:03 PM Result s for this REPORTS BOOK SORTER procedure are i n the results section. MICROSCOPIC MANUAL Routine 06/02/2016 4:03 PM Res ults for this BOOK SORTER procedure are i n the results section. GRAM'S STAIN, Routine 06/02/2016 4:03 PM Results for this CONFIRMATORY, U BOOK SORTER procedure ar e in the results section. URINALYSIS WITH Routine 06/02/2016 4:03 PM Result s for this MICROSCOPIC BOOK SORTER procedure are i n the results section. CARBAMAZEPINE LEVEL, Routine 06/02/2016 7:45 AM R esults for this TOT AND FR, S BOOK SORTER procedure are in the results section. ELECTROLYTE (CHEM 4) Routine 06/02/2016 3:23 AM R esults for this PANEL, S/P BOOK SORTER procedure are i n the results section. CBC WITH DIFFERENTIAL, Routine 06/02/2016 3:23 AM Results for this B BOOK SORTER procedure are i n the results section. PHOSPHORUS Routine 06/02/2016 3:23 AM Results f or this (INORGANIC), S BOOK SORTER procedure are in the results section. MAGNESIUM, S Routine 06/02/2016 3:23 AM Results f or this BOOK SORTER procedure are i n the results section. CALCIUM, IONIZED, S/B Routine 06/02/2016 3:23 AM Results for this BOOK SORTER procedure are i n the results section. documented in this encounter Results Microbiology Reports (06/02/2016 4:03 PM BOOK SORTER) Specimen Anatomical Collection Method Collection Time Receive d Time (Source) Location / / Volume Laterality 06/02/2016 4:03 PM 6 4:37 BOOK SORTER PM BOOK SORTER Narrative [facility] - 06/04/2016 9:28 AM BOOK SORTER 02-JUN-2016 URINE, MIDSTREAM, ?SoftOrd# [id number] ?(Ordered 02-JUN-2016; Collec adina 02-JUN-2016 16:03; Received 02-JUN-2016 16:37) ?[facility] ?BACTERIAL CULTURE, AEROBIC + MUÑOZ SC ? (Reported 04-JUN-2016 09:28) FINAL ?Mixed arsenio. Procedure Note 10/28/2017 02-JUN-2016 URINE, MIDSTREAM, SoftOrd# [id number] (Ordered 02-JUN-2016; Collected 2015 16:03; Received 02-JUN-2016 16:37) [facility] BACTERIAL CULTURE, AEROBIC + SUSC (Rep orted 04-JUN-2016 09:28) FINAL Mixed arsenio. Ta Kimbrough M.D., Ph.D. LAB MICROBIOLOGY - GENERAL ORDERABLES Performing Organization Address City/State/ZIP Code Phon e Number [facility] - [address] [place], [place] [address] [place] (ABNORMAL) Gram Stain, Confirmatory, Urine (06/02/2016 4:03 PM BOOK SORTER) [facility] gist Method Time Signature Grams Stain, Positive (A) [facility] Confirmatory, LABORATORIES - Urine [place] Comment: Many Gram-positive bacilli ? ADDITIONAL INFORMATIO N ? This test was developed and its performa nce characteristics ? determined by [facility] in a manner co nsistent with ? CLIA requirements. This test has not bee n cleared or ? approved by the U.S. Food and Drug Admin istration. ? Specimen Anatomical Collection Method Collection Time Receive d Time (Source) Location / / Volume Laterality 06/02/2016 4:03 PM 6 4:03 BOOK SORTER PM BOOK SORTER Ta Kimbrough M.D., Ph.D. LAB URINE ORDERABLES Performing Organization Address City/State/ZIP Code Phon e Number [facility] - [address] [place], [place] [address] [place] (ABNORMAL) Microscopic Manual (06/02/2016 4:03 PM BOOK SORTER) [facility] gist Method Time Signature WBC 1-3 1-3 [facility] (Males); LABORATORIES - 1-10 [facility] (Females) CAMPUS /HPF Fat Occas (A) /HPF [facility] [place] Microscopy Abnormal [facility] [place] Blood <3 <3 /HPF [facility] [place] Squamous 4-10 /HPF [facility] Epithelial [facility] [place] Bacteria Present (A) [facility] [place] Specimen Anatomical Collection Method Collection Time Receive d Time (Source) Location / / Volume Laterality 06/02/2016 4:03 PM 12/21/201 6 4:03 BOOK SORTER PM BOOK SORTER Ta Kimbrough M.D., Ph.D. LAB URINE ORDERABLES Performing Organization Address City/State/ZIP Code Phon e Number [facility] - [address] [place], [place] [address] [place] (ABNORMAL) Urinalysis with Microscopic (06/02/2016 4:03 PM BOOK SORTER) [facility] gist Method Time Signature Source Midstream [facility] [place] Appearance Normal Normal [facility] [place] Hemoglobin, QL Negative Negative [facility] [place] Osmolality, 24 477 150 - 1150 [facility] HR, U MOSM/KG [facility] Predicted 24 262 MG/24 H [facility] Hr Protein [facility] Predicted 65-1061 MG/24 H [facility] Range [facility] Glucose 14 0 - 15 MG/DL [facility] [place] Protein, U 17 <22 MG/DL [facility] [place] Comment: ? ADDITIONAL INFORMATIO N ? On 12/24/2013 the total protein assay me thod changed resulting ? in approximately a 20% increase in prote in values. ? pH, 24 HR, U 5.5 4.5 - 8.0 [facility] Comment: ? ADDITIONAL INFORMATIO N ? This test was developed and its performa nce characteristics determined by ? [facility] in a manner consistent with CLIA requirements. This test has not ? been cleared or approved by the [place] [facility] d and Drug Administration. ? Protein/Osmolality 0.36 (H) <0.27 [facility] [place] Comment: ? ADDITIONAL INFORMATIO N ? On 12/24/2013 the total protein assay me thod changed resulting ? in approximately a 20% increase in prote in values. ? Specimen Anatomical Collection Method Collection Time Receive d Time (Source) Location / / Volume Laterality 06/02/2016 4:03 PM 6 4:03 BOOK SORTER PM BOOK SORTER Ta Kimbrough M.D., Ph.D. LAB URINE ORDERABLES Performing Organization Address [facility] Phon e Number [facility] - [address] [place] [address] [place] Carbamazepine, Free and Total (06/02/2016 7:45 AM BOOK SORTER) P athologist Signature Carbamazepine, 6.1 4.0 - 12.0 [facility] Tot, S MCG/ML LABORATORIES [facility] Carbamazepine, 2.4 1.0 - 3.0 [facility] Free, S MCG/ML [facility] [place] Specimen Anatomical Collection Method Collection Time Receive d Time (Source) Location / / Volume Laterality 06/02/2016 7:45 AM 6 7:45 BOOK SORTER AM BOOK SORTER Mary Garcia M.D., Ph.D. LAB BLOOD NON ADD-ON Performing Organization Address City/[facility] Phon e Number [facility] - [address] [place] [address] [place] Electrolyte (Chem 4) Panel (06/02/2016 3:23 AM BOOK SORTER) Analysis Performed At Patho logist Time Signature Sodium, S 141 135 - 145 [facility] MMOL/L [facility] Potassium, S 3.8 3.6 - 5.2 [facility] MMOL/L [facility] Creatinine 0.6 0.6 - 1.1 [facility] MG/DL [facility] BUN (Blood Urea 7 6 - 21 [facility] Nitrogen), S MG/DL [facility] Chloride, S 104 98 - 107 [facility] MMOL/L [facility] HX Bicarbonate, 25 22 - 29 [facility] P/S MMOL/L [facility] Anion Gap 12 7 - 15 [facility] [place] Glucose, S 95 70 - 140 [facility] MG/DL [facility] Specimen Anatomical Collection Method Collection Time Receive d Time (Source) Location / / Volume Laterality 06/02/2016 3:23 AM 6 3:23 BOOK SORTER AM BOOK SORTER Mary Garcia M.D., Ph.D. LAB BLOOD ADD-ON Performing Organization Address City/[facility]/ZIP Code Phon e Number [facility] - [address] [place] [address] [place] (ABNORMAL) Calcium, Ionized (06/02/2016 3:23 AM BOOK SORTER) [facility] Method Time Signature Calcium, 4.89 4.80 - [facility] Ionized, S 5.70 LABORATORIES - MG/DL [place] pH 7.45 (H) 7.32 - [facility] 7.43 LABORATORIES - [place] Specimen Anatomical Collection Method Collection Time Receive d Time (Source) Location / / Volume Laterality 06/02/2016 3:23 AM 6 3:23 BOOK SORTER AM BOOK SORTER Mary Garcia M.D., Ph.D. LAB BLOOD NON ADD-ON Performing Organization Address City/[facility] Phon e Number [facility] - [address] [place] [address] [place] (ABNORMAL) CBC with Differential (06/02/2016 3:23 AM BOOK SORTER) [facility] [place] Method Time Signature Erythrocytes 3.85 (L) 3.90 - [facility] 5.03 LABORATORIES - X10(12)/L [place] MCV 99.2 (H) 81.6 - [facility] 98.3 [place] LABORATORIES [facility] RBC Distrib 13.3 11.9 - [facility] Width 15.5 % LABORATORIES - [place] Platelet Count 238 150 - 450 [facility] X10(9)/L LABORATORIES - [place] Lymphocytes 1.47 0.90 - [facility] 2.90 LABORATORIES - X10(9)/L [place] Monocytes 0.91 (H) 0.30 - [facility] 0.90 LABORATORIES - X10(9)/L [place] Eosinophils 0.11 0.05 - [facility] 0.50 LABORATORIES - X10(9)/L [place] Basophils 0.02 0.00 - [facility] 0.30 LABORATORIES - X10(9)/L [place] Hemoglobin 13.1 12.0 - [facility] 15.5 G/DL LABORATORIES - [place] Hematocrit 38.2 34.9 - [facility] 44.5 % LABORATORIES - [place] Leukocytes 8.1 3.5 - [facility] 10.5 LABORATORIES - X10(9)/L [place] Neutrophils 5.56 1.70 - [facility] 7.00 LABORATORIES - X10(9)/L [place] Specimen Anatomical Collection Method Collection Time Receive d Time (Source) Location / / Volume Laterality 06/02/2016 3:23 AM 6 3:23 BOOK SORTER AM BOOK SORTER Mary Garcia M.D., Ph.D. LAB BLOOD ADD-ON Performing Organization Address City/State/ZIP Code Phon e Number [facility] - [address] [place] [address] [place] Magnesium (06/02/2016 3:23 AM BOOK SORTER) P athologist Signature Magnesium, S 2.2 1.7 - 2.3 [facility] MG/DL LABORATORIES - [place] Specimen Anatomical Collection Method Collection Time Receive d Time (Source) Location / / Volume Laterality 06/02/2016 3:23 AM 6 3:23 BOOK SORTER AM BOOK SORTER Mary Garcia M.D., Ph.D. LAB BLOOD ADD-ON Performing Organization Address City/State/ZIP Code Phon e Number [facility] - [address] [place] [address] [place] Phosphorus Inorganic (06/02/2016 3:23 AM BOOK SORTER) Analysis Performed At Patho logist Time Signature Phosphorus 3.6 2.5 - 4.5 [facility] (Inorganic), S MG/DL LABORATORIES - [place] Specimen Anatomical Collection Method Collection Time Receive d Time (Source) Location / / Volume Laterality 06/02/2016 3:23 AM 6 3:23 BOOK SORTER AM BOOK SORTER Mary Garcia M.D., Ph.D. LAB BLOOD ADD-ON Performing Organization Address City/State/ZIP Code Phon e Number [facility] - [address] documented in this encounter Visit Diagnoses Not on filedocumented in this encounter
--- OUTSIDE RECORDS SUMMARY | 2022-05-07 14:58 | XMS_ITS | Encounter Summary ---
:1945 Author Organization [facility] Address [address] [place] [address] Care Team Providers Name Role Phone Unavailable [...] do you attend cheondoism or Never 2021 lutheran services? Do you belong to any clubs [...] AM 6 9:48 CDT AM CDT Narrative [facility] - 12/14/1995 9:48 AM CDT [id number] Surgical Pathology Requested By: ? Soren Wylie D.D.S. ? ([id number]) ?? TISSUE DESCRIPTION: ?? Tooth ?? DIAGNOSIS: ?? One tooth identified. (discarded) ?? [id number] ?Teddy Melgoza M.D.:dam Procedure Note 09/02/2017 [id number] Surgical Pathology Requested By: Soren Wylie D.D.SMyesha ([id number]) TISSUE DESCRIPTION: Tooth DIAGNOSIS: One tooth identified. (discarded) [id number] Teddy Melgoza M.D.:roberth Soren Wylie D.D.S. LAB PATHOLOGY/CYTOLOGY ORDER ASHLEY Performing Organization Address City/State/ZIP Code Phon e Number [facility] - [address] [place], [place] [address] [facility] ECG 12 Lead (12/13/1995 4:01 PM CDT) Specimen (Source) Anatomical Collection Method Collection Time Re ceived Time Location / / Volume Laterality 12/13/1995 4:01 PM CDT Narrative [facility] - 12/13/1995 4:43 PM CDT [id number] 16:01 VENTRICULAR RATE 92 NORMAL SINUS RHYTHM NORMAL ECG WHEN COMPARED WITH ECG OF 26-OCT-1994 11 :17, NO SIGNIFICANT CHANGE WAS FOUND KHAI WEIR ??, ANUJ/ Zheng Procedure Note Provider, Historical - 09/06/2017Formatt ing of this note might be different from the original. [id number] 16:01 VENTRICULAR RATE 92 NORMAL SINUS RHYTHM NORMAL ECG WHEN COMPARED WITH ECG OF 26-OCT-1994 11 :17, NO SIGNIFICANT CHANGE WAS FOUND KHAI WEIR MD, ANUJ/ Zheng Historical Provider ECG ORDERABLES Performing Organization Address City/State/ZIP Code Phon e Number [facility] [address] [place] [address], U documented in this encounter Visit Diagnoses Not on filedocumented in this encounter
--- OUTSIDE RECORDS SUMMARY | 2022-05-07 14:58 | XMS_ITS | Encounter Summary ---
:1945 Author Organization [facility] Address [address] [place] [address] Care Team Providers Name Role Phone Unavailable Primary Care Provider Unavailable Encounter Details Date Type Department Care Team Description 08/05/2021 Clinical Communication Department of Physical Depompol o, Medicine and Jose Harrison M.D. Rehabilitation in [address] [place] [address] [place] [phone] [place] [address] Social History Tobacco Use Types Packs/Day [...] do you attend denominational or Never 2021 sikh services? Do you belong to any clubs [...] place to sleep or slept in a snf (including now)? Sex Assigned at Date Recorded Female 08/25/2021 9:30 PM CDT documented as of this encounter Miscellaneous Notes Telephone Encounter - Jose Peng M.D. - 08/05/2021 7:33 AM PIANO TUNER I spoke with the patient and her spouse last night about Dr. Castellon's evaluation. I encouraged them to review this themselves through the [facility]. The patient's primary care provider has setup anappointment with Nicko Stone, a non operative orthopedic physician in [place], [place], to review the diagnosis and make recommendations. The patient plans to await that input which is scheduled for later this week. This seems quite reasonable. They also wonder about the potential benefit of updating the patient's brain MRI which certainly seems reasonable as well but I would defer that to Dr. Stone. O TUNER documented in this encounter Plan of Treatment Not on filedocumented as of this encounter Visit Diagnoses Not on filedocumented in this encounter
--- OUTSIDE RECORDS SUMMARY | 2022-05-07 14:58 | XMS_ITS | Encounter Summary ---
:1945 Author Organization [facility] Address [address] [place] [address] Care Team Providers Name Role Phone Unavailable Primary Care Provider Unavailable Encounter Details Date Type Department Care Team Description 04/12/2018 Orders Only Department of Physical Depompolo, Focal Complex Partial Medicine and Jose Harrison M.D. Epilepsy Not Rehabilitation in [address] [place] [address] Intractable With [place], [place] Status Epilepticus [address] [place] [phone] (HCC) (Primary Dx) [place] [address] [phone] Social History Tobacco Use Types Packs/Day Years [...] do you attend nondenominational or Never 2021 faith services? Do you [...]
--- OUTSIDE RECORDS SUMMARY | 2022-05-07 14:58 | XMS_ITS | Encounter Summary ---
:1945 Author Organization [facility] Address [address] [place] [address] Care Team Providers Name Role Phone Unavailable Primary Care Provider Unavailable Encounter Details Date Type Department Care Team Description 04/06/2018 Clinical Communication Department of Physical Depompol o, Medicine and Jose Harrison M.D. Rehabilitation in [address] [place] [address] [place] [phone] [place] [address] [phone] Social History Tobacco Use Types Packs/Day Years [...] do you attend mandaen or Never 2021 religion services? Do you belong to any clubs or No 08/26/2021 organizations such as mandaen groups, unions, fraternal or athletic groups, or [...] [place] (including now)? Sex Assigned at Date Recorded [...] put schedule with Dr. Riddhi Covington at [facility]. Telephone Encounter - Jose Peng M.D. - 04/12/2018 3:07 PM CDT Can you find out how I can refer a patient to Riddhi Covington MD. [facility] [place] Tele[facility] Encounter - Jose Peng M.D. - 04/06/2018 6:22 AM CDT Kennedy, 'You saw this patient in 2017. 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 She would like a recheck for her seizure management after a recent breakthrough event. She would like this done in [facility] if possible. Is there a [facility] who sees patients in [place]? Kayy, Tad documented in this encounter Plan of Treatment Not on filedocumented as of this encounter Visit Diagnoses Not on filedocumented in this encounter
--- OUTSIDE RECORDS SUMMARY | 2022-05-07 14:58 | XMS_ITS | Encounter Summary ---
:1945 Author Organization [facility] Address [address] [place] [address] Care Team Providers Name Role Phone Unavailable Primary Care Provider Unavailable Encounter Details Date Type Department Care Team Description 07/29/2021 Clinical Communication Department of Physical Depompol o, Medicine and Jose Harrison M.D. Rehabilitation in [address] [place] [address] [place] [phone] [place] [address] Social History Tobacco Use Types Packs/Day [...] or relatives? How often do you attend jewish or Never 2021 alevism services? Do you belong to any clubs or No 08/26/2021 organizations such as jewish groups, unions, fraternal or athletic groups, or [...] Jose Peng M.D. - 07/29/2021 10:23 AM MED AIDE I have spoken by telephone to this patient's , Bahman Langley, and through text messages hehas sent me regarding this patient's recent medical [...] local primary care provider, Abdiel Llanos, in [place], [place]. That resulted in a recent lumbosacral [...] discussion about possible assist with heavy cares. AIDE documented in this encounter Plan of Treatment Not on filedocumented as of this encounter Visit Diagnoses Not on filedocumented in this encounter
--- OUTSIDE RECORDS SUMMARY | 2022-05-07 14:58 | XMS_ITS | Encounter Summary ---
:1945 Author Organization [facility] Address [address] [place] [address] Care Team Providers Name Role Phone Elsewhere, Pcp Primary Care Provider Unavailable Reason for Referral Outpatient (Routine) - Closed Specialty Diagnoses / Procedures Referred By Contact Refer red To Contact Spine Diagnoses Stenosis Spinal Srinivasa Castellon M.D. [facility] [address] [place] [phone] Referral ID Status Reason Start Date Expiration Date Visits Requ ested Visits Authorized [id number] Closed 08/20/2021 08/20/2022 1 1 Scheduling Instructions URGENT needs prior to seeing Dr. Gabriella luevano - spine neuro or Gen neuro WAY PAINTER Encounter Details Date Type Department Care Team Description 08/20/2021 Orders Only Department of Srinivasa Castellon [facility] Neurologic Surgery noman Tee M.D. (Primary Dx) [place], [place] [address] [place] [address] [place] [phone] [phone] Social History Tobacco Use Types Packs/Day Years [...] do you attend druze or Never 2021 restorationism services? Do you belong to any clubs [...] or slept in a chcf (including now)? Sex Assigned at Date Recorded Female 08/25/2021 9:30 PM CDT documented as of this encounter Plan of Treatment Scheduled Referrals Name Type Priority Associated Diagnoses [facility] Outpatient Referral Routine Stenosis Spinal Expected: consult (clinic) 08/20/2021 (Approximate), Expires: 11/20/2022 documented as of this encounter Visit Diagnoses Diagnosis Stenosis Spinal - Primary documented in this encounter Additional Health Concerns Infection Onset Date Last Indicated Resolved Time COVID19 Pending 09/01/2021 09/01/2021 09/01/2021 1:17 PM CDT documented as of this encounter Care Teams Lead Man Over All Dies In Pattern Shop Relationship Specialty Start Date End Date Elsewhere, Pcp PCP - General Internal Medicine 09/02/21 documented as of this encounter
--- OUTSIDE RECORDS SUMMARY | 2022-05-07 14:58 | XMS_ITS | Encounter Summary ---
:1945 Author Organization [facility] Address [address] [place] [address] Care Team Providers Name Role Phone Unavailable Primary Care Provider Unavailable Reason for Referral Outpatient (Routine) - Closed Specialty Diagnoses / Procedures Referred By Contact Refer red To Contact Neurological Surgery Diagnoses Stenosis Spinal Jose Peng, [facility] Procedures Neurological surgery - Spine eConsult Maame [address] [place] [phone] Referral ID Status Reason Start Date Expiration Date Visits Requ ested Visits Authorized [id number] Closed 08/03/2021 08/03/2022 1 1 ANALYSIS CLERK Encounter Details Date Type Department Care Team Description 08/03/2021 Orders Only Department of Physical Noreen Peng [facility] Spinal Medicine and Jose Harrison M.D. (Primary Dx) Rehabilitation in [address] [place] [address] [place] [phone] [place] [address] [phone] Social History Tobacco Use Types Packs/Day Years [...] or relatives? How often do you attend sabianism or Never 2021 temple services? Do you belong to any clubs or No 08/26/2021 organizations such as sabianism groups, unions, fraternal or athletic groups, or [...]
--- OUTSIDE RECORDS SUMMARY | 2022-05-07 14:58 | XMS_ITS | Encounter Summary ---
:1945 Author Organization [facility] Address [address] [place] [address] Care Team Providers Name Role Phone Unavailable Primary Care Provider Unavailable Encounter Details Date Type Department Care Team Description 08/03/2021 Orders Only Department of Physical Depompolo, Steno sis Spinal Medicine and Jose Harrison M.D. (Primary Dx) Rehabilitation in [address] [place] [address] [place] [address] [place] [address] [phone] Social History Tobacco Use Types Packs/Day Years [...] or relatives? How often do you attend rastafarian or Never 2021 uatsdin services? Do you belong to any clubs or No 08/26/2021 organizations such as rastafarian groups, unions, fraternal or athletic groups, or [...] of Outside MR Spine (08/03/2021 8:11 AM SYSTEM ARCHIVE ANALYST) Anatomical Region Laterality Modality Neuroradiology RST LOS, Neuroradiology ARZ LOS, N/A Magnetic Resonance Neuroradiology FLA LOS, Spine, Other Specimen (Source) Anatomical Collection Method Collection Time Re ceived Time Location / / Volume Laterality 08/03/2021 8:23 AM SYSTEM ARCHIVE ANALYST Impressions 08/03/2021 8:49 AM SYSTEM ARCHIVE ANALYST Lumbar spondylosis, as described, result s in severe central canal stenosis from L2-L5 Narrative 08/03/2021 8:49 AM SYSTEM ARCHIVE ANALYST EXAM: ??INTERPRETATION OF OUTSIDE MR SPINE COMPARISON: [...]
--- OUTSIDE RECORDS SUMMARY | 2022-05-07 14:58 | XMS_ITS | Encounter Summary ---
:1945 Author Organization [facility] Address [address] [place] [address] Care Team Providers Name Role Phone Unavailable Primary Care Provider Unavailable Encounter Details Date Type Department Care Team Description 11/11/2020 Orders Only Department of Physical DepJose augustin Medicine and Rehabilitation [place] in [facility] [address] [facility] [address] [place] [phone] [phone] (Wo rk) Social History Tobacco Use Types [...] or relatives? How often do you attend baptist or Never 2021 nondenominational services? Do you belong to any clubs or No 08/26/2021 organizations such as baptist groups, unions, fraternal or athletic groups, or [...]
--- OUTSIDE RECORDS SUMMARY | 2022-05-07 14:58 | XMS_ITS | Encounter Summary ---
:1945 Author Organization [facility] Address [address] [place] [address] Care Team Providers Name Role Phone Unavailable Primary Care Provider Unavailable Reason for Referral Outpatient (Routine) - Closed Specialty Diagnoses / Procedures Referred By Contact Refer red To Contact Neurological Surgery Diagnoses Stenosis Srinivasa Magallon [facility] [address] [place] [phone] Referral ID Status Reason Start Date Expiration Date Visits Requ ested Visits Authorized [id number] Closed 08/13/2021 08/13/2022 1 1 Scheduling Instructions Patient prefers video visit with Dr. Irma palacios sooner rather than the day prior to surgery [facility] Outpatient (Routine) - Closed Specialty Diagnoses / Procedures Referred By Contact Refer red To Contact Anesthesiology Diagnoses Stenosis Srinivasa Maagllon M.D. [facility] [address] [place] [phone] Referral ID Status Reason Start Date Expiration Date Visits Requ ested Visits Authorized [id number] Closed 08/13/2021 08/13/2022 1 1 [facility] Outpatient (Routine) - Closed Specialty Diagnoses / Procedures Referred By Contact Refer red To Contact Social Work Diagnoses Stenosis Srinivasa Magallon M.D. [facility] [address] [place] [phone] Referral ID Status Reason Start Date Expiration Date Visits Requ ested Visits Authorized [id number] Closed 08/13/2021 08/13/2022 1 1 [facility] Encounter Details Date Type Department Care Team Description 08/12/2021 Clinical Communication Department of Srinivasa Castellon Neurologic Surgery noman Tee M.D. [place], [place] [address] [facility] 200 [place] [address] [phone] Social History Tobacco Use Types Packs/Day Years [...] do you attend cheondoism or Never 2021 restorationism services? Do you [...] slept in a care home (including now)? Sex Assigned at Date [...] mobility. Surgery is listed and orders signed. [facility] Telephone Encounter - Orin Mcintyre - 08/13/2021 [...] be contacted. How to contact back: Call: [phone] [facility] Telephone Encounter - Serafin Meléndez - 08/12/2021 4:09 PM CST Patient called again and would like to schedule a f/u appointment to discuss surgery, which they areleading towards, JEAN CARLOS. Contact: , patient or her . [facility] Telephone Encounter - Orin Mcintyre - 08/12/2021 11:16 AM CST Caller Name/Relationship to Patient: Auth on file: Yes. Date of service: 08/04/2021 Provider/RN Name: Dr. Castellon Reason for Call: Additional Requests: Patient's called back on regards to surgery date. He would like a call back to the phone listed below. *It says that patient needs an scale installer but speaks Romansh. How to contact back: Call: [phone] [facility] documented in this encounter Plan of Treatment [...] PCR, Varies Asymptomatic (09/01/2021 9:40 AM CDT) [facility] Method Time Signature COVID-19, Swab, 09/01/2021 DTL [...] ----ADDITIONAL INFORMATION---- This RT-PCR test using the [employer] SARS-Co V-2 Assay ( Fastmobile.) performed on the [employer] Two Module System has received Emergency Use Authorization (EUA) by the U.S. Food and Drug Administration, and is modified from the medical anthropology director's instructions with a bridging study. Performance characteristics were verifie d by [facility] in a manner consistent with CLIA requirements. Visit the CDC website: https://www.cdc.g ov/coronavirus/ for the most recent guidelines on [place] virus testing. Fact Sheet for Healthcare Providers: https://www.fda.gov/media/269936/downloa d Fact Sheet for Patients: https://www.fda.gov/media/925849/downloa d Specimen Anatomical Collection Method Collection Time Receive d Time (Source) Location / / Volume Laterality Varies 09/01/2021 9:40 AM 2 (Nasopharynx) CDT 10:15 AM CDT Srinivasa Castellon M.D. LAB MICROBIOLOGY - GENERAL O RIMA Performing Organization Address City/State/ZIP Code Phon e Number [facility] - [address] [place], [place] [address] [facility] [place] [address] [facility] [address] documented in this encounter Visit Diagnoses Diagnosis Stenosis Spinal - Primary documented in this encounter
--- OUTSIDE RECORDS SUMMARY | 2022-05-07 14:58 | XMS_ITS | Encounter Summary ---
:1945 Author Organization [facility] Address [address] [place] [address] Care Team Providers Name Role Phone Unavailable [...] you attend oriental orthodox or Never 2021 christianity services? Do you [...] place to sleep or slept in a residential (including now)? Sex Assigned at Date Recorded [...]
--- OUTSIDE RECORDS SUMMARY | 2022-05-07 14:58 | XMS_ITS | Encounter Summary ---
:1945 Author Organization [facility] Address [address] [place] [address] Care Team Providers Name Role Phone Unavailable [...] or relatives? How often do you attend methodist or Never 2021 restoration services? Do you belong to any clubs or No 08/26/2021 organizations such as methodist groups, unions, fraternal or athletic groups, or [...] 11/04/1994 AM CDT 11:02 AM CDT Narrative [facility] - 11/04/1994 11:02 AM CDT [id number] Surgical Pathology Requested By: ? Padmaja Umanzor M.D. ? ([id number]) ?? TISSUE DESCRIPTION: ?? Left ovary (3.5 x 2 x 1 cm), and 4 c m segment of left fallopian tube, and right ovary (3.3 x ?? 1.5 x 1.2 cm). ?? [id number] A1, A2, B1 ?? DIAGNOSIS: ?Left tube [...] fallopian tube is not identified . ?? [id number] ?Theo Brooks M.D.:rar Procedure Note 09/02/2017 [id number] Surgical Pathology Requested By: Padmaja Umanzor M.D. ([id number]) TISSUE DESCRIPTION: Left ovary (3.5 x 2 x 1 cm), and 4 cm s egment of left fallopian tube, and right ovary (3.3 x 1.5 x 1.2 cm). [id number] A1, A2, B1 DIAGNOSIS: Left tube and ovary: Benign simple cyst (4.7 x 4 x 3.5 cm) of the left ovary is identified. The ovary shows a focus of endometriosi s. The fallopian tube shows no diagnostic abnormality. Right tube and ovary: The ovary contain s a corpus luteum and a benign serous cyst (1.5 cm). The fallopian tube is not identified. [id number] Theo Brooks M.D.:rar C. Jose Umanzor M.D. LAB PATHOLOGY/CYTOLOGY ORDER ASHLEY Performing Organization Address City/State/ZIP Code Phon e Number [facility] - [address] [place], [place] [address] [facility] documented in this encounter Visit Diagnoses Not on filedocumented in this encounter
--- OUTSIDE RECORDS SUMMARY | 2022-05-07 14:58 | XMS_ITS | Encounter Summary ---
:1945 Author Organization [facility] Address [address] [place] [address] Care Team Providers Name Role Phone Unavailable [...] do you attend orthodoxy or Never 2021 judaism services? Do you [...]
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
--- OUTSIDE RECORDS SUMMARY | 2022-05-07 14:58 | XMS_ITS | Encounter Summary ---
:[address] [facility] Address [address] [place] [address] Care Team Providers Name Role Phone Unavailable Primary Care Provider Unavailable Encounter Details Date Type Department Care Team Description 08/03/2021 Ancillary Procedure Department of Jose Peng Spinal Radiology in [place], [place] [address] [facility] [address] [place] [phone] Social History Tobacco Use Types Packs/Day Years [...] do you attend mandaen or Never 2021 jain services? Do you [...] Jose Peng M.D. - 08/03/2021 11:21 AM CIVIL ENGINEER LAND DEVELOPMENT The outside lumbar spine MRI shows severe central canal stenosis from L2 through L5. 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 The patient's spouse would like a Spine surgeon's opinion and I have requested an E consult by Neurosurgery. L ENGINEER LAND DEVELOPMENT documented in this encounter Plan of Treatment Not on filedocumented as of this encounter Procedures Procedure Name Priority Date/Time Associated Comments Diagnosis INTERPRETATION OF RAD - Routine 08/03/2021 8:11 Stenosis Spinal Res ults for OUTSIDE MR SPINE (most inpatients AM CIVIL ENGINEER LAND DEVELOPMENT this pr ocedure and all are in the outpatients) results section. documented in this encounter Results Interpretation of Outside MR Spine (08/03/2021 8:11 AM CIVIL ENGINEER LAND DEVELOPMENT) Anatomical Region Laterality Modality Neuroradiology RST LOS, Neuroradiology ARZ LOS, N/A Magnetic Resonance Neuroradiology FLA LOS, Spine, Other Specimen (Source) Anatomical Collection Method Collection Time Re ceived Time Location / / Volume Laterality 08/03/2021 8:23 AM CIVIL ENGINEER LAND DEVELOPMENT Impressions 08/03/2021 8:49 AM CIVIL ENGINEER LAND DEVELOPMENT Lumbar spondylosis, as described, result s in severe central canal stenosis from L2-L5 Narrative 08/03/2021 8:49 AM CIVIL ENGINEER LAND DEVELOPMENT EXAM: ??INTERPRETATION OF OUTSIDE MR SPINE COMPARISON: [...]
--- NOTE | 2022-05-07 15:00 | CRLHL7_ITS ---
For Patients: As a result of the Century Cures Act, medical imaging exams and procedure reports are released immediately into your electronic medical record. You may view this report before your referring provider. If you have questions, please contact your health care provider. BILATERAL SCREENING MAMMOGRAM WITH COMPUTER-AIDED DETECTION AND TOMOSYNTHESIS TECHNIQUE: CC and MLO views were obtained. These mammographic images have been obtained using full-field digital technique. These mammographic images were interpreted with the benefit of computer-aided detection. Breast Tomosynthesis was used in this interpretation. COMPARISON FILM: 07/12/19, [facility] 08/20/13, 08/18/12. FINDINGS: There are scattered areas of fibroglandular density IMPRESSION: There is no radiographic evidence for malignancy. ASSESSMENT: BI-RADS Category 2: Benign RECOMMENDATION: Routine screening mammogram in 1 year. A lay language report of this examination will be provided to the patient. Dae Razo M.D. Diagnostic Radiologist [email or web address] MEI/Dictated by: Dae Razo MD @ 05/10/2022 9:42:00 AM (Electronically Signed)
== END 2022-05-07 14:51 | disposition home or self-care (01) ==
LOC: MAMMO 14:54
PROVIDERS: PCP Internal Medicine; Visit Provider Internal Medicine
DX: Z12.31 Encounter for screening mammogram for malignant neoplasm of breast (principal)
CPT/HCPCS: 77063; 77067

== ENCOUNTER 2022-07-10 11:38 | Emergency (ER) | payer MEDICARE, BC, SELFPAY ==
[2022-07-10 12:01] VITALS: BP 143/85; PULSE 108; TEMP 37.8; O2SAT 94; BMI 25.8
--- NOTE | 2022-07-10 12:17 | CRLHL7_ITS ---
For Patients: As a result of the Cures Act, medical imaging exams and procedure reports are released immediately into your electronic medical record. You may view this report before your referring provider. If you have questions, please contact your health care provider. INDICATION: Fever and cough. TECHNIQUE: Chest single-view portable. IMPRESSION: Lungs clear. Probable retrocardiac hiatal hernia. Right-sided PASSENGER SOLICITOR shunt catheter is noted Spurring and arthrosis at the shoulders. Normal heart size and vascular pattern allowing for portable technique. No signs of effusion or pneumothorax. Dictated by Graham Gutierrez MD @ 07/10/2022 1:14:21 PM (Electronically Signed)
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
[2022-07-10 13:14] VITALS: BP 142/73; PULSE 85; RESP 12; O2SAT 92
== END 2022-07-10 13:41 | disposition home or self-care (01) ==
PROVIDERS: Emergency Provider Emergency Medicine Emergency Medical Services; PCP Internal Medicine
DX: U07.1 COVID-19 (principal)
CPT/HCPCS: 71045; 99283; 99284

== ENCOUNTER 2022-07-12 21:47 | Outpatient (CLI) | payer MEDICARE, BC, SELFPAY | END 2022-07-12 21:48 | disposition home or self-care (01) | LOC: AMB 07-14 03:47 | PROVIDERS: PCP Internal Medicine; Visit Provider Emergency Medicine Emergency Medical Services | DX: R06.09 Other forms of dyspnea (principal) | CPT/HCPCS: A0425; A0427 ==

== ENCOUNTER 2022-07-12 22:11 | Emergency (ER) | payer MEDICARE, BC, SELFPAY ==
[2022-07-12] VITALS (7 sets, daily range): BP systolic 134–135; BP diastolic 75–76; PULSE 79–93; RESP 18; TEMP 36.7; O2SAT 94–97; BMI 24.2
--- NOTE | 2022-07-12 22:47 | CRLHL7_ITS ---
For Patients: As a result of the Century Cures Act, medical imaging exams and procedure reports are released immediately into your electronic medical record. You may view this report before your referring provider. If you have questions, please contact your health care provider. INDICATION: COVID positive, cough. TECHNIQUE: Chest 1 view. COMPARISON: 07/10/2022. FINDINGS: Cardiovascular and mediastinum: Normal heart size. Tortuous and atherosclerotic thoracic aorta. Moderate-sized hiatal hernia. Lungs and pleural spaces: Subtle patchy right lung base opacity. The left lung is clear. No pleural effusion or pneumothorax. Bones and soft tissues: Right-sided ventriculoperitoneal shunt. No acute findings. IMPRESSION: Subtle patchy right lung base opacity could represent pneumonia in the correct clinical setting. Dictated by Jani Peoples MD @ 07/12/2022 11:32:55 PM (Electronically Signed)
--- NOTE | 2022-07-12 22:48 | ED.GENADULT ---
HPI - General Adult General Chief complaint: Cough Stated complaint: COVID+,Lung Issue Time Seen by Provider: 07/12/22 22:27 History of Present Illness HPI narrative: This 77-year-old female has a traumatic brain injury. She comes in by ambulance because her noted change in function today. She is positive with COVID for the past couple days and started on Paxlovid soon after the diagnosis an onset of symptoms. Her states that she is maintaining sufficient oximetry and her coughing has decreased. Today however she seemed to have some symptoms that were suspicious of a possible onset of seizure. She does have a history of seizures related to her traumatic brain injury. She took her medications late this afternoon. Her noticed later that she had what looked like some whitish foam in her mouth and discovered then that she apparently had not swallowed 1 of the pills. He wonders if she may have aspirated something. She arrives here with normal vital signs. She is maintaining sufficient oximetry on room air at 94%. He did give her diazepam when there was a suspicion of impending seizure. She arrives here rather sedated because of this. Related Data Home Medications Medication Instructions Recorded Confirmed aspirin 81 mg tablet,delayed 81 mg PO QDAY 02/18/22 02/18/22 release atorvastatin 10 mg tablet 10 mg PO Q OTHER DAY 02/18/22 02/18/22 carbamazepine 200 mg 400 mg PO BID 02/18/22 02/18/22 capsule,extended release [id number] prednisone 20 mg tablet 20 mg PO BID 02/18/22 02/18/22 Previous Rx's Medication Instructions Recorded carbamazepine 200 mg 400 mg PO BID Pain #90 caps 01/14/22 capsule,extended release [id number] diazepam 5 mg/mL oral concentrate 5 mg PO DIRECTED Seizures #30 mL 03/25/22 levetiracetam 250 mg tablet 250 mg PO DIRECTED Seizure 05/19/22 Disorder #180 tabs carbamazepine 100 mg 100 mg PO BID Seizure Disorder 06/18/22 capsule,extended release [id number] #180 caps carbamazepine 200 mg 400 mg PO BID Seizure Disorder 06/18/22 capsule,extended release [id number] #180 caps acetaminophen 300 mg-codeine 30 mg 1 tab PO Q6H PRN pain #20 tabs 07/10/22 tablet Allergies Allergy/AdvReac Type Severity Reaction Status Date / Time No Known Allergies Allergy Unknown Verified 07/12/22 22:31 Review of Systems Narrative: Unable to obtain because of traumatic brain injury. [facility] Medical History (Updated 07/13/22 @ 00:07 by Kennedy Banks MD) Pain Surgical History (Updated 02/17/22 @ 20:04 by Re Jesus) History of hysterectomy Social History Smoking Status: Never smoker Do you use any of these nicotine containing products: None Second hand tobacco smoke exposure: No How often do you have a drink containing alcohol: never AUDIT-C Alcohol total score: 0 Non-prescribed substance use: denies use Exam Narrative: Exam Narrative: Constitutional: Well-developed, well-nourished, no acute distress. HEENT: Normocephalic, atraumatic. Neck: Normal range of motion. Nontender. Supple. Heart: Regular. No murmurs. Normal rate. Intact distal pulses. Lungs: Clear to auscultation. No chest discomfort. No wheezes or rales. She does have some bilateral rhonchi. Abdomen: Normal bowel sounds. Nontender. No rebound tenderness. Genitalia: Deferred. Back: No midline tenderness. Normal range of motion. Extremities: Normal range of motion. No injury. Skin: Intact. No rash. Warm. No erythema or pallor. Neurologic: No altered sensation. No weakness. Alert and oriented. Psychiatric: No suicidality. No anxiety or depression. No insomnia. Nursing notes and vitals signs are reviewed. Const: Vital Signs, click to edit/add: Vital Signs - 24 hr 07/12/22 22:28 07/12/22 23:09 07/12/22 23:15 Temperature 98.0 F Pulse Rate 83 83 Pulse Rate [Right Pulse Oximeter] 93 Respiratory Rate 18 Blood Pressure Blood Pressure [Ri ght Upper Arm] 135/75 Pulse Oximetry 94 95 97 Oxygen Delivery Me thod Room Air 07/12/22 23:17 Temperature Pulse Rate 79 Pulse Rate [Right Pulse Oximeter] Respiratory Rate Blood Pressure 134/76 Blood Pressure [Ri ght Upper Arm] Pulse Oximetry 95 Oxygen Delivery Me thod Room Air Course Vital Signs Vital signs: Initial Vital Signs Temperature 98.0 F 07/12/22 22:28 Temperature Source Temporal Artery Scan 07/12/22 22:28 Pulse Rate 93 07/12/22 22:28 Respiratory Rate 18 07/12/22 22:28 Blood Pressure 135/75 07/12/22 22:28 Blood Pressure Mean 95 07/12/22 22:28 Blood Pressure Position Sitting 07/12/22 22:28 Pulse Oximetry 94 07/12/22 22:28 Oxygen Delivery Method 07/12/22 22:28 Vital Signs Temperature 98.0 F 07/12/22 22:28 Pulse Rate 93 07/12/22 22:28 Respiratory Rate 18 07/12/22 22:28 Blood Pressure 135/75 07/12/22 22:28 Pulse Oximetry 94 07/12/22 22:28 Oxygen Delivery Method 07/12/22 22:28 Temperature 98.0 F 07/12/22 22:28 Pulse Rate 79 07/12/22 23:17 Respiratory Rate 18 07/12/22 22:28 Blood Pressure 134/76 07/12/22 23:17 Pulse Oximetry 95 07/12/22 23:17 Oxygen Delivery Method 07/12/22 23:17 Medical Decision Making MDM Narrative Medical decision making narrative: This patient is positive with COVID and has completed a couple days of Paxlovid. Her states that her behavior is quite different today. He reports some suspicion of possible aspiration. She is actually coughing last now and has not had any fevers. She arrives with normal vital signs including oximetry at 94% on room air. Chest x-ray does show evidence of possible subtle infiltrate in the right lower lobe. The patient does have normal white count and her labs otherwise also essentially normal. I did prescribe doxycycline and stated that it may be best to discontinue the Paxil of id as this may be causing adverse effects. This plan is agreeable to her . She is okay to return home to continue current plans otherwise. Lab Data Labs: Lab Results 07/12/22 07/12/22 Range/Units 23:05 23:05 WBC 7.60 (4.50-11.00) K/uL RBC 3.59 L (4.00-5.20) m/uL Hgb 11.8 L (12.0-16.0) gm/dL Hct 35.7 (33.0-51.0) % MCV 99 (80-100) fL MCH 33 (26-34) pg MCHC 33 (32-36) gm/dL RDW Coeff of Rodney 14.4 (11.5-15.5) % Plt Count 245 (140-440) K/uL Neut % (Auto) 77.6 H (42.0-72.0) % Lymph % (Auto) 14.2 L (20-44) % [place] % (Auto) 6.7 (0.0-11.0) % Eos % (Auto) 0.1 (0.0-7.0) % Baso % (Auto) 0.3 (0.0-3.0) % Neut # (Auto) 5.90 (1.7-7.0) K/uL Lymph # (Auto) 1.10 (0.90-2.90) K/uL [place] # (Auto) 0.50 (0.00-0.90) K/UL Eos # (Auto) 0.01 (0.00-0.50) K/uL Baso # (Auto) 0.02 (0.00-0.30) K/uL Sodium 144 (135-149) mmol/L Potassium 3.1 L (3.6-5.1) mmol/L Chloride 110 (96-114) mmol/L Carbon Dioxide 29 (20-32) mmol/L BUN 12 (7-30) mg/dL Creatinine 0.4 L (0.5-1.5) mg/dL Estimated Creat Clear 44.80 Estimated GFR 103 ml/min Glucose 121 H (60-115) mg/dL Calcium 8.3 L (8.4-10.6) mg/dL Imaging Data Chest x-ray: Radiologist's impression: Subtle patchy right lung base opacity could represent pneumonia in the correct clinical setting. Discharge Plan Discharge Clinical Impression: TBI (traumatic brain injury), Pneumonia Patient Disposition: Home w/ Parent or Adult Condition: Unchanged Additional Instructions: Take medication as prescribed. Discontinue Paxlovid. Follow up with MD or return if worsening symptoms happen. Prescriptions: No Action atorvastatin 10 mg tablet 10 mg PO Q OTHER DAY carbamazepine 200 mg capsule, ER multiphase 12 hr 400 mg PO BID prednisone 20 mg tablet 20 mg PO BID aspirin 81 mg tablet,delayed release (DR/EC) 81 mg PO QDAY acetaminophen-codeine 300-30 mg tablet 1 tab PO Q6H PRN (Reason: pain) Qty: 20 0RF carbamazepine 200 mg capsule, ER multiphase 12 hr 400 mg PO BID Qty: 90 6RF diazepam 5 mg/mL concentrate 5 mg PO DIRECTED Qty: 30 0RF Rx Instructions: place 1 mL inside of cheek for more than 3 seizures - 1 hour or lasting longer than 5 minutes. levetiracetam 250 mg tablet 250 mg PO DIRECTED Qty: 180 6RF Rx Instructions: 500mg in morning 250mg at lunch 500mg at night carbamazepine 200 mg capsule, ER multiphase 12 hr 400 mg PO BID Qty: 180 0RF carbamazepine 100 mg capsule, ER multiphase 12 hr 100 mg PO BID Qty: 180 0RF Follow Up/Referrals: Abdiel Llanos MD [Primary Care Provider] - Stand Alone Forms: [employer] Info Instructions
[2022-07-12 23:10] LABS: Basophils Absolute Auto 0.02 K/uL (0.00-0.30); Basophils Percent Auto 0.3 % (0.0-3.0); Eosinophils Absolute Auto 0.01 K/uL (0.00-0.50); Eosinophils Percent Auto 0.1 % (0.0-7.0); Hematocrit 35.7 % (33.0-51.0); Hemoglobin* 11.8 gm/dL (12.0-16.0); Immature Granulocytes Abs Auto 0.08 K/uL (0.00-0.30); Immature Granulocytes Pct Auto 1.1 %; Lymphocytes Percent Auto 14.2 % (20-44); Mean Corpuscular HGB Conc 33 gm/dL (32-36); Mean Corpuscular Hemoglobin 33 pg (26-34); Mean Corpuscular Volume 99 fL (80-100); Monocytes Percent Auto 6.7 % (0.0-11.0); Neutrophils Percent Auto 77.6 % (42.0-72.0); Platelet Count* 245 K/uL (140-440); RDW Coefficient of Variation % 14.4 % (11.5-15.5); Red Blood Count 3.59 m/uL (4.00-5.20)
[2022-07-12 23:13] LABS: Slide Review Reflex No
[2022-07-12 23:25] LABS: Chloride* 110 mmol/L (96-114)
[2022-07-12 23:26] LABS: Potassium* 3.1 mmol/L (3.6-5.1); Sodium* 144 mmol/L (135-149)
[2022-07-12 23:28] LABS: Creatinine* 0.4 mg/dL (0.5-1.5); Estimated Glomerular Filt Rate 103 ml/min
[2022-07-12 23:29] LABS: Blood Urea Nitrogen* 12 mg/dL (7-30); Calcium* 8.3 mg/dL (8.4-10.6); Carbon Dioxide* 29 mmol/L (20-32); Glucose* 121 mg/dL (60-115)
[2022-07-13] VITALS: BP 115/69; PULSE 90; O2SAT 93
[2022-07-13 00:24] VITALS: BP 115/69; PULSE 75; RESP 18
--- NOTE | 2022-07-13 00:28 | PC.NURSE ---
patient returned home with via ambulance.
== END 2022-07-13 00:34 | disposition home or self-care (01) ==
PROVIDERS: Emergency Provider Emergency Medicine Emergency Medical Services; PCP Internal Medicine
DX: J18.9 Pneumonia, unspecified organism (principal); S06.9XAA Unspecified intracranial injury with loss of consciousness status unknown, initial encounter
CPT/HCPCS: 36415; 71045; 80048; 85025; 99284

== ENCOUNTER 2022-07-13 00:26 | Outpatient (CLI) | payer MEDICARE, BC, SELFPAY | END 2022-07-13 00:27 | disposition home or self-care (01) | LOC: AMB 07-14 03:51 | PROVIDERS: PCP Internal Medicine; Visit Provider Family Medicine | DX: S06.9XAS Unspecified intracranial injury with loss of consciousness status unknown, sequela (principal); U07.1 COVID-19; J18.9 Pneumonia, unspecified organism | CPT/HCPCS: A0425; A0428 ==

== ENCOUNTER 2023-03-01 10:48 | Outpatient (CLI) | payer MEDICARE, BC, SELFPAY ==
--- OUTSIDE RECORDS SUMMARY | 2023-03-01 10:50 | XMS_ITS | Continuity of Care Document ---
Author Name Unknown Organization [facility] Address [address] [place] [address] Phone Care Team Providers Care Blade Aligner Name Role Phone Gurjit Perez MD Unavailable Unavailable Allergies, Adverse Reactions, Alerts Substance Reaction Status Criticality No Known Allergies Active No Inform ation Medications Medication Instructions Dosage Effective Dates (start - stop) Status Comments ASPIRIN EC (unknown strength) Not Available - Active ATORVASTATIN CALCIUM (unknown strength) Not Available - Active CARBATROL (unknown strength) Not Available - Active TEGRETOL XR (unknown strength) Not Available - Active VITAMIN D3 (unknown strength) Not Available - Active DIAZEPAM (unknown strength) Not Available - Active FOLIC ACID (unknown strength) Not Available - Active KEPPRA (unknown strength) Not Available - Active LORAZEPAM (unknown strength) Not Available - Active VALERIAN ROOT (unknown strength) Not Available - Active Procedures Procedure Date Office/Outpatient Visit,[facility] 2021 Advance Directives Directive Yes / No Effective Date File Name No Information Encounters Encounter Description Practice Location Reason(s) For Visit Diagnoses Date Provider Providers Copied on Encounter [facility], [address], [place], [id number], [place] tel:[phone] [facility] [place] No Information Ana Cagle. [facility], [address] [place] [address], [facility], [place], [id number] , [place]. tel:[phone] Office/Outpat ient Visit,[facility], [address], [place], [id number], [place] tel:[phone] [facility] Spinal stenosis, lumbar region with neurogenic claudication Edin Ospina. [facility], [address], [place], [address], [place]. [phone] Referring Provider: Bhavesh Jesus, [facility] [address], [place], [address]. tel:[phone] [facility], [address], [place], [place], [id number], [place] tel:[phone] [facility] [place] Radiculopathy, lumbar region Edin Ospina. [facility], [address], [place], [address], [place]. tel:[phone] Family History Family Member Type Diagnosis Age At Onset No Information Payers Payer name Insurance type Covered democrat [place] [id number] Medicare [facility] [id number] Social History Type Description Quantity Date Captured Comments Sex Female Smoking Status No Information Chief Complaint And Reason For Visit No Information Reason For Referral Reason For Referral No Information History Of Present Illness Encounter Date Complaint History Of Prese nt Illness No Information Functional Status Date Functional Assessmen t No Information Instructions Date Instruction Additional Infor mation No Information Assessments Type Assessment Date No Information Patient Care Teams Name Effective Dates (start - stop) Status Members No Information
== END 2023-03-01 10:49 | disposition home or self-care (01) ==
PROVIDERS: PCP Internal Medicine; Visit Provider Internal Medicine
DX: Z00.00 Encounter for general adult medical examination without abnormal findings (principal); R53.83 Other fatigue; E78.2 Mixed hyperlipidemia
CPT/HCPCS: 80053; 80061; 87086; 87186